=== PATIENT | female | born 1955 | race Caucasian/White ===

== ENCOUNTER 2017-06-07 05:50 | Day surgery (SDC) | payer OTHER ==
[2017-06-07] MEDS ORDERED: Xopenex 1.25 MG/0.5 ML UD NEBULE IH ONE (06:46)
[2017-06-07] MEDS ORDERED: Lactated Ringers 1,000 ML IV ONE (07:02)
[2017-06-07] MEDS ORDERED: Lactated Ringers 1,000 ML IV SCH (07:30)
[2017-06-07] MEDS ORDERED: TRANDATE 100 MG/20 ML MDV FOR DRIP IV ONE (07:30)
[2017-06-07] MEDS ORDERED: Versed 2 MG/2 ML Injection IV ONE (08:00)
[2017-06-07] MEDS ORDERED: DIPRIVAN 200 MG/20 ML IV ONE (08:00)
--- NOTE | 2017-06-07 09:06 | OP ---
SURGERY DATE/TIME: 06/07/2017 0725 PREOPERATIVE DIAGNOSIS: Constipation. POSTOPERATIVE DIAGNOSIS: Small polyp in the transverse colon and sigmoid diverticulosis. PROCEDURE: Colonoscopy with polypectomy. SURGEON: Dr. Hernandez. ANESTHESIA: Medications given by anesthesia department. HISTORY: The patient is a 62 year-old white female presenting now for colonoscopy. She has never had a screening colonoscopy performed previously. The patient reports she is having constipation. The stool softeners have not been helping. The patient was felt the need to have endoscopic evaluation. She was appraised of the risks of the procedure including the risk of perforation, phlebitis, untoward reaction to medication, bleeding and missed lesions. The patient verbalized her understanding and desired to have the procedure performed. DESCRIPTION OF PROCEDURE: The patient was given the medications by the anesthesia department. She had continuous pulse oximetry, ECG monitoring, intermittent blood pressure monitoring and tidal CO2 monitoring during the examination. She was placed in the left lateral decubitus position. A digital rectal examination was performed and revealed normal anal sphincter tone and no masses. The flexible Olympus pediatric colonoscope was used to intubate the rectum. A view of the colon was developed sequentially to the cecum. There was noted to be a fair amount of fecal material in the cecum precluding complete evaluation there. There was noted to be a polyp in the transverse colon and hepatic flexure and this was destroyed using cold biopsy technique with multiple passed of polyp forceps. There was also noted to be scattered diverticula in the sigmoid colon. No other mucosal lesions being encountered the scope was removed from the patient who tolerated the procedure well and was sent back to OP recovery in good condition. The prep was noted to be fair to good.
[2017-06-07 09:23] VITALS: PULSE 70
[2017-06-07 09:24] VITALS: BP 180/94; O2SAT 97
== END 2017-06-07 09:15 | disposition home or self-care (01) ==
LOC: SDC 05:50
PROVIDERS: ATTEND Family Medicine
PROC: 0DBN8ZX Excision of Sigmoid Colon, Via Natural or Artificial Opening Endoscopic, Diagnostic (ICD-10-PCS; principal; 2017-06-07)
DX: D12.3 Benign neoplasm of transverse colon (principal); K57.30 Diverticulosis of large intestine without perforation or abscess without bleeding; I10 Essential (primary) hypertension
CPT/HCPCS: 00810; 36415; 88305; 94640; J2250; J2704; A9270-GY

== ENCOUNTER 2018-08-11 08:33 | Day surgery (SDC) | payer MEDICARE ==
--- NOTE | 2018-08-11 08:07 | HP ---
DATE OF SURGERY: 08/11/2018 HISTORY OF PRESENT ILLNESS: The patient is a 63 year-old upper esophagus feels like food and pills getting stuck in the upper esophagus in need for upper endoscopy. PAST MEDICAL HISTORY: Chronic obstructive pulmonary disease, hypertension, PAST SURGICAL HISTORY: Cholecystectomy, knee replacement in the past. MEDICATIONS: Ventolin inhaler, chlorthalidone, fluoxetine, amlodipine, lisinopril, gabapentin, tramadol, clonidine, albuterol sulfate. ALLERGIES: NKDA. FAMILY HISTORY: Lung cancer. SOCIAL HISTORY: Less than a pack a day smoker. Denies alcohol abuse. REVIEW OF SYSTEMS: Twelve systems reviewed per admission assessment. No chest pain or palpitations other systems negative or noncontributory as above and per preadmission questionnaire. PHYSICAL EXAMINATION: GENERAL: No acute distress. HEENT: Sclerae nonicteric. NECK: No JVD. CHEST: Equal excursion, nonlabored breathing. CVS: Regular rate and rhythm. ABDOMEN: Soft. No peritoneal signs. EXTREMITIES: No significant edema. NEURO: Alert, oriented, moving extremities symmetrically. No gross motor deficits noted. IMPRESSION: Dysphagia with pills getting stuck upper esophagus. I feel the patient is in need of possible biopsy possible dilatation. Risks and benefits explained in detail including but not limited to bleeding or infection, risk of bowel injury or perforation possibly requiring open procedure, risk of missed or nondiagnosis or incomplete exam possibly requiring barium swallow, other studies or procedures, general risk of anesthesia or sedation but not limited to. Possibility if dilatation improves her swallowing she may need repeat again down the road. She also understands possibility it could be more of a functional neurologic problem and dilatation may not improve her swallowing she may need further work up and/or testing, esophagogram, other studies or procedures. She understands and agrees to the planned procedure and will proceed with EGD with possible biopsy, possible dilatation as an outpatient.
[~2018-08-11 08:33] MED LIST: Lactated Ringers 1,000 ML IV ONE; Lactated Ringers 1,000 ML IV SCH
== END 2018-08-11 09:00 ==
LOC: SDC 08:33
PROVIDERS: ATTEND Surgery
DX: R13.10 Dysphagia, unspecified (principal); Z53.09 Procedure and treatment not carried out because of other contraindication; J44.9 Chronic obstructive pulmonary disease, unspecified; I10 Essential (primary) hypertension; Z79.899 Other long term (current) drug therapy; Z80.1 Family history of malignant neoplasm of trachea, bronchus and lung; Z72.0 Tobacco use
CPT/HCPCS: 93005; 94250

== ENCOUNTER 2018-08-11 09:11 | Emergency (ER) | payer MEDICARE ==
--- NOTE | 2018-08-11 09:35 | ERPHSYRPT ---
- History of Present Illness Time Seen by Provider: 08/11/18 09:32 Historian: patient Exam Limitations: no limitations Physician History: The patient is a 63-year-old female brought over from outpatient surgery where she complained of chest pressure before having an EGD this morning. The chest pressure began at 5 this morning when she woke up, 4 hours ago. She has no history of heart problems. She tells me very clearly that she has this same chest pressure all most every morning. The chest pressure goes away when she has her coffee. She was not able to have anything to eat or drink since midnight before this procedure was to be done. She tells me she wants black coffee right now and she will feel better. She denies any more shortness of breath than she normally has with her COPD. She denies nausea. She denies sweating. She has a past medical history of COPD, hypertension, and stomach issues. She continues to smoke cigarettes. Timing/Duration: today, hour(s) (4) Activities at Onset: none Quality: pressure Location: substernal Chest Pain Radiation: no radiation Severity of Pain-Max: mild Severity of Pain-Current: mild Modifying Factors: Improves With: eating (drinking coffee) Associated Symptoms: denies symptoms Prior Chest Pain/Cardiac Workup: no prior cardiac workup, non-cardiac Nitro Today/Relief: no nitro taken today Aspirin Treatment Today: no aspirin today Allergies/Adverse Reactions: No Known Drug Allergies Allergy (Verified 08/11/18 09:36) Home Medications: Tramadol HCl 50 mg [Ultram 50 mg] 1 - 2 tab PO Q6HPRN PRN 01/13/14 [ History] Albuterol 8 gm Mdi Hfa [Ventolin Hfa MDI] 2 puffs IH Q4H PRN PRN 08/02/15 [History] Fluoxetine HCl 20 mg PO DAILY 06/04/17 [History] Gabapentin [Neurontin] 300 mg PO TID 06/04/17 [History] Clonidine HCl [Catapres] 0.2 mg PO TID 07/28/18 [History] Hx Tetanus, Diphtheria Vaccination/Date Given: Yes Hx Influenza Vaccination/Date Given: Yes Hx Pneumococcal Vaccination/Date Given: No - Review of Systems Constitutional: No Fever, No Chills Eyes: No Symptoms Ears, Nose, & Throat: No Symptoms Respiratory: No Cough, No Dyspnea Cardiac: Chest Pain Abdominal/Gastrointestinal: No Abdominal Pain, No Nausea, No Vomiting, No Diarrhea Genitourinary Symptoms: No Dysuria Musculoskeletal: No Back Pain, No Neck Pain Skin: No Rash Neurological: No Dizziness, No Focal Weakness, No Sensory Changes Psychological: No Symptoms Endocrine: No Symptoms Hematologic/Lymphatic: No Symptoms Immunological/Allergic: No Symptoms All Other Systems: Reviewed and Negative - Past Medical History Pertinent Past Medical History: Yes Neurological History: Migraines ENT History: No Pertinent History Cardiac History: Hypertension Respiratory History: COPD, Other Endocrine Medical History: No Pertinent History Musculoskeletal History: Arthritis GI Medical History: No Pertinent History, Gallbladder Disease History: No Pertinent History Psycho-Social History: No Pertinent History Female Reproductive Disorders: No Pertinent History - Past Surgical History Past Surgical History: Yes Neuro Surgical History: No Pertinent History Cardiac: No Pertinent History Respiratory: No Pertinent History Gastrointestinal: Cholecystectomy Genitourinary: No Pertinent History Musculoskeletal: Orthopedic Surgery Female Surgical History: Hysterectomy Other Surgical History: right knee replacement, screw in pelvis, misha in left leg - Social History Smoking Status: Current every day smoker How long have you smoked: 45 Exposure to second hand smoke: Yes Drug Use: none Patient Lives Alone: No - Nursing Vital Signs Nursing Vital Signs: Initial Vital Signs Temperature 98.5 F 08/11/18 09:14 Pulse Rate 100 H 08/11/18 09:14 Respiratory Rate 26 H 08/11/18 09:14 Blood Pressure 145/107 08/11/18 09:14 O2 Sat by Pulse Oximetry 92 L 08/11/18 09:14 Pain Scale Pain Intensity 0 - Physical Exam General Appearance: no apparent distress, alert Eye Exam: PERRL/EOMI, eyes nml inspection Ears, Nose, Throat Exam: normal ENT inspection, moist mucous membranes Neck Exam: normal inspection, non-tender, supple, full range of motion Respiratory Exam: diminished breath sounds, prolonged expirations, wheezing Cardiovascular Exam: regular rate/rhythm, normal heart sounds Gastrointestinal/Abdomen Exam: soft, No tenderness, No mass Pelvic Exam: not done Rectal Exam: not done Back Exam: normal inspection, No CVA tenderness, No vertebral tenderness Extremity Exam: normal inspection, normal range of motion Neurologic Exam: alert, oriented x 3, cooperative, normal mood/affect, sensation nml, No motor deficits Skin Exam: normal color, warm, dry SpO2 Interpretation: normal Oxygen Delivery: Room Air - Course EKG Interpreted by Me: RATE, Sinus Rhythm, Left [place] Deviation, LAFB, NORMAL INTERVALS, NORMAL QRS, NORMAL ST-T - Radiology Exams Chest X-ray Interpretation: Reviewed by me, Teleradiologist Report (per Dr Lloyd), Negative (stable nonacute chest with chronic features) Ordered Tests: Active Orders 24 hr Category Date Time Status Business Affairs Manager STAT Care 08/11/18 09:36 Active EKG-ER Only STAT Care 08/11/18 09:35 Active IV Insertion STAT Care 08/11/18 09:35 Active CHEST 2 VIEWS (PA AND LAT) Stat Exams 08/11/18 09:36 Completed CBC W DIFF Stat Lab 08/11/18 09:49 Completed CK-Creatinine Phosphokinase Stat Lab 08/11/18 09:49 Completed CMP Stat Lab 08/11/18 09:49 Completed Manual Differential NC Stat Lab 08/11/18 09:49 Completed Sputum Culture [CULTURE,SPUTUM] Stat Lab 08/11/18 10:06 Ordered TROPONIN Q3H Lab 08/11/18 09:49 Completed TROPONIN Q3H Lab 08/11/18 13:00 Completed TROPONIN Q3H Lab 08/11/18 15:45 Ordered TROPONIN Q3H Lab 08/11/18 18:45 Ordered TROPONIN Q3H Lab 08/11/18 21:45 Ordered Peak Expiratory Flow Rate ONCE RT 08/11/18 09:59 Active Respiratory Nebulizer STAT RT 08/11/18 09:37 Completed Respiratory Therapy Assessment DAILY RT 08/11/18 09:59 Active Medication Summary Discontinued Medications Generic Name Dose Route Start Last Admin Trade Name Freq PRN Reason Stop Dose Admin Albuterol/Ipratropium 3 ml 08/11/18 09:37 08/11/18 09:55 Duoneb 0.5-3 Mg/3 Ml Neb IH 08/11/18 09:38 3 ml STAT ONE Administration Albuterol/Ipratropium Confirm 08/11/18 09:53 Duoneb 0.5-3 Mg/3 Ml Neb Administered 08/11/18 09:54 Dose 3 ml IH .STK-MED ONE Lab/Rad Data: Laboratory Result Diagrams 08/11/18 09:49 08/11/18 09:49 Laboratory Results 08/11/18 08/11/18 08/11/18 Range/Units 13:00 09:49 09:49 WBC (4.0-10.5) K/mm3 RBC (4.1-5.4) M/mm3 Hgb (12.0-16.0) gm/dl Hct (35-47) % MCV (78-100) fl MCH (26-32) pg MCHC (32-36) g/dl RDW (11.5-14.0) % Plt Count (150-450) K/mm3 MPV (6-9.5) fl Segmented Neutrophils (36.0-66.0) % Band Neutrophils (0.0-2.0) % Lymphocytes (Manual) (24-44) % Monocytes (Manual) (0.0-12.0) % Eosinophils (Manual) (0.00-3.0) % Platelet Estimate (NORMAL) RBC Morphology Sodium 138 (137-145) mmol/L Potassium 4.3 (3.5-5.1) mmol/L Chloride 100 (98-107) mmol/L Carbon Dioxide 26 (22-30) mmol/L Anion Gap 16.4 H (5-15) MEQ/L BUN 8 (7-17) mg/dL Creatinine 0.95 (0.52-1.04) mg/dL Estimated GFR > 60.0 ML/MIN Glucose 116 H (74-106) mg/dL Calcium 9.6 (8.4-10.2) mg/dL Total Bilirubin 0.90 (0.2-1.3) mg/dL AST 22 (14-36) U/L ALT 14 (0-35) U/L Alkaline Phosphatase 123 (38-126) U/L Creatine Kinase 96 (30-135) U/L Troponin I < 0.012 < 0.012 (0.000-0.034) ng/mL Serum Total Protein 8.0 (6.3-8.2) g/dL Albumin 4.5 (3.5-5.0) g/dL 08/11/18 Range/Units 09:49 WBC 13.9 H (4.0-10.5) K/mm3 RBC 4.61 (4.1-5.4) M/mm3 Hgb 13.4 (12.0-16.0) gm/dl Hct 40.2 (35-47) % MCV 87.2 (78-100) fl MCH 29.1 (26-32) pg MCHC 33.3 (32-36) g/dl RDW 13.0 (11.5-14.0) % Plt Count 221 (150-450) K/mm3 MPV 9.9 H (6-9.5) fl Segmented Neutrophils 76 H (36.0-66.0) % Band Neutrophils 18 H (0.0-2.0) % Lymphocytes (Manual) 3 L (24-44) % Monocytes (Manual) 2 (0.0-12.0) % Eosinophils (Manual) 1 (0.00-3.0) % Platelet Estimate NORMAL (NORMAL) RBC Morphology NORMAL Sodium (137-145) mmol/L Potassium (3.5-5.1) mmol/L Chloride (98-107) mmol/L Carbon Dioxide (22-30) mmol/L Anion Gap (5-15) MEQ/L BUN (7-17) mg/dL Creatinine (0.52-1.04) mg/dL Estimated GFR ML/MIN Glucose (74-106) mg/dL Calcium (8.4-10.2) mg/dL Total Bilirubin (0.2-1.3) mg/dL AST (14-36) U/L ALT (0-35) U/L Alkaline Phosphatase (38-126) U/L Creatine Kinase (30-135) U/L Troponin I (0.000-0.034) ng/mL Serum Total Protein (6.3-8.2) g/dL Albumin (3.5-5.0) g/dL - Progress Progress: improved Progress Note: 08/11/18 13:46 Pt drank black coffee soon after entry into ER and immediately stated the chest pressure was relieved. Discussed with : Hesham Will see patient in: office Counseled pt/family regarding: lab results, diagnosis, need for follow-up, rad results - Departure Time of Disposition: 13:47 Departure Disposition: Home Clinical Impression: Chest tightness or pressure Condition: Stable Critical Care Time: No Referrals: FIORDALIZA GUSMAN [Primary Care Provider] - Additional Instructions: You had chest pressure that was relieved with black coffee. You were not having heart problems at this time. Once you are released from the ER, please go to [facility] and see Dr. Gusman. He is aware of what happened this morning and wants to have you evaluated by a refrigeration mechanic. He will help you schedule an appointment with the refrigeration mechanic.
[2018-08-11] MEDS ORDERED: DUONEB 0.5-3 MG/3 ml Neb IH ONE ×2 (09:37→09:53)
[2018-08-11 09:54] LABS: Hematocrit 40.2 % (35-47); Hemoglobin 13.4 gm/dl (12.0-16.0); Mean Cell Volume 87.2 fl (78-100); Mean Corpuscular Hemoglobin 29.1 pg (26-32); Mean Corpuscular Hgb Concent. 33.3 g/dl (32-36); Mean Platelet Volume 9.9 fl (6-9.5); Platelet Count 221 K/mm3 (150-450); Red Blood Count 4.61 M/mm3 (4.1-5.4); White Blood Count 13.9 K/mm3 (4.0-10.5)
--- NOTE | 2018-08-11 09:58 | XRAY ---
Indication: Chest pain. Comparison: August 02, 2015. PA/lateral chest remains clear again with a few incidental calcified granulomas. Heart and mediastinal structures within normal limits. Bony thorax intact again with mild osteopenia, degenerative changes, and scoliosis. Impression: Stable nonacute chest with chronic features.
[2018-08-11 10:12] LABS: ALBUMIN 4.5 g/dL (3.5-5.0); ALKALINE PHOSPHATASE 123 U/L (38-126); ANION GAP 16.4 MEQ/L (5-15); BLOOD UREA NITROGEN 8 mg/dL (7-17); CHLORIDE 100 mmol/L (98-107); CK-Creatinine Phosphokinase 96 U/L (30-135); Calcium 9.6 mg/dL (8.4-10.2); Carbon Dioxide 26 mmol/L (22-30); Creatinine 1 0.95 mg/dL (0.52-1.04); Glucose 116 mg/dL (74-106); Potassium 4.3 mmol/L (3.5-5.1); SGOT/AST 22 U/L (14-36); SGPT/ALT 14 U/L (0-35); SODIUM 138 mmol/L (137-145)
[2018-08-11 10:28] LABS: BAND 18 % (0.0-2.0); Eosinophil 1 % (0.00-3.0); Lymphocytes 3 % (24-44); Monocyte 2 % (0.0-12.0); Neutrophils 76 % (36.0-66.0); Platelet Estimate NORMAL (NORMAL); Total Cells Counted 100
[2018-08-11 14:05] VITALS: BP 129/77; PULSE 83; O2SAT 97
== END 2018-08-11 14:05 | disposition home or self-care (01) ==
LOC: ED 09:11
DX: R07.89 Other chest pain (principal); I10 Essential (primary) hypertension; J44.9 Chronic obstructive pulmonary disease, unspecified; M19.90 Unspecified osteoarthritis, unspecified site; Z72.0 Tobacco use; Z79.899 Other long term (current) drug therapy
CPT/HCPCS: 36000; 36415; 71046; 80053; 82550; 84484; 85025; 87070; 93005; 93041; 94150; 94640; 99284; A9270-GY

== ENCOUNTER 2018-10-20 09:29 | Day surgery (SDC) | payer MEDICARE ==
--- NOTE | 2018-10-20 08:03 | HP ---
DATE OF SURGERY: 10/20/2018 HISTORY OF PRESENT ILLNESS: The patient is a 53 year-old having problems with upper esophagus, feels like food and pills get stuck in the upper esophagus. No prior upper endoscopy. Family history negative for esophageal cancer and/or dysphagia. She is in need of upper endoscopy possible biopsy, possible dilatation. PAST MEDICAL HISTORY: She has had some chronic obstructive pulmonary disease, some anxiety and hypertension. PAST SURGICAL HISTORY: Cholecystectomy. Knee replacement. MEDICATIONS: Ventolin inhaler, chlorthalidone, fluoxetine, amlodipine, lisinopril, gabapentin, tramadol, Albuterol sulfate, clonidine. ALLERGIES: NKDA. FAMILY HISTORY: Lung cancer. Negative for esophageal cancer. SOCIAL HISTORY: Less than a pack per day smoker. Denies alcohol abuse. REVIEW OF SYSTEMS: Twelve systems reviewed. Negative or noncontributory as above and per preadmission questionnaire. She did get cardiac clearance. No chest pain or palpitations currently. PHYSICAL EXAMINATION: GENERAL: No acute distress. HEENT: Sclerae nonicteric. NECK: No JVD. CHEST: Equal excursion, nonlabored breathing. CVS: Regular rate and rhythm. ABDOMEN: Soft. No peritoneal signs. EXTREMITIES: No significant edema. NEURO: Alert, moving extremities symmetrically. No gross motor deficits noted. IMPRESSION: Dysphagia. I feel she will benefit from EGD possible biopsy, possible dilatation. She was shown the risk sheet and explained the procedure in detail but not limited to bleeding or infection, small risk of bowel injury or perforation possibly requiring open procedure, ongoing morbidity as tertiary center for stent, general risk of anesthesia, deep venous thrombosis, pulmonary embolism, pneumonia, perioperative risk of aches, pains, possibility if dilatation improves her swallowing she may need it repeated again in the future. She also understands possibility that dilatation may not improve swallowing. She may have a functional or neurologic issue that might require other work up or treatment. General risk of anesthesia or sedation but not limited to. She understands and agrees to the planned procedure and will proceed with EGD possible biopsy, possible dilatation as an outpatient.
[2018-10-20] MEDS ORDERED: DIPRIVAN 200 MG/20 ML IV ONE (09:30)
[2018-10-20] MEDS ORDERED: Ketamine HCl 50 MG/ML IJ ONE (09:30)
[2018-10-20] MEDS ORDERED: Lactated Ringers 1,000 ML IV SCH (10:00)
[2018-10-20] MEDS ORDERED: Xopenex 1.25 MG/0.5 ML UD NEBULE IH ONE ×2 (10:03→10:04)
[2018-10-20] MEDS ORDERED: Sodium Chloride 3 ML UD NEBULES IH ONE (10:06)
[2018-10-20 12:52] VITALS: O2SAT 99
[2018-10-20 12:56] VITALS: BP 170/91; PULSE 74
--- NOTE | 2018-10-21 08:41 | OP ---
SURGERY DATE/TIME: 10/20/2018 1056 PREOPERATIVE DIAGNOSIS: Dysphagia. POSTOPERATIVE DIAGNOSES: 1) Proximal esophageal narrowing and spasm. 2) Minimal gastritis. 3) Slight hiatal hernia 1 centimeter. PROCEDURES: 1) EGD with cold biopsy of the antrum to evaluate for Helicobacter pylori. 2) Cold biopsy distal esophagus to evaluate for eosinophilic esophagitis. 3) Proximal esophageal balloon dilatation, proximal esophageal narrowing (size 20 balloon). SURGEON: Dr. Triston Peterson. ANESTHESIA: MAC. ESTIMATED BLOOD LOSS: Minimal. INDICATIONS: As noted above. Risks and benefits explained in detail and not limited to and consent obtained. DESCRIPTION OF PROCEDURE AND FINDINGS: The patient is taken to the operating room. MAC anesthesia introduced. After official time out and no disagreement with planned procedure, a bite block positioned. Video gastroscope easily passed down the oropharynx. There is proximal esophageal narrowing and spasm. No evidence of any obvious masses to biopsy. Scope was passed down through the gastroesophageal junction about 39 cm through the patent pylorus to the junction of the second and third portion of the duodenum. Duodenum and duodenal bulb grossly unremarkable. Back in the stomach had some minimal gastritis. Cold biopsy taken to evaluate Helicobacter pylori. On retroflex there was just a very slight hiatal hernia with slight weakness measuring one centimeter or so by scope to gastroesophageal junction. There were no signs of any other polyps or masses. No signs of ulcers or any other mucosal lesion. The scope was straightened. Gastroesophageal junction noted about 39 cm. Z-line was fairly crisp. Given her symptom complaints and dysphagia, cold biopsy taken of distal esophagus to evaluate for eosinophilic esophagitis. Good hemostasis was noted. Otherwise there were no signs of any other mucosal lesions just the proximal esophageal narrowing and spasm where she was having symptoms. It was felt this warranted a trial of balloon dilatation. The scope is passed back down into the stomach. The balloon catheter was inserted. However she had some desaturation given her chronic obstructive pulmonary disease as she is a smoker. The balloon dilator and scope were withdrawn allowing anesthesia to better oxygenate the patient for a few minutes with excellent return of her saturations. Anesthesia gave approval to go ahead and proceed with the procedure. Passed the scope back down. The catheter was then readvanced in the stomach and then pulled back to proximal esophageal narrowing where it was gradually inflated and 30 seconds the first stage, 30 seconds second stage and final stage for about 2 minutes. The balloon was decompressed and then withdrawn and passed off. The scope more easily passed through this area down in the stomach and was gradually withdrawn. The biopsy site distal esophagus had good hemostasis. The area in the more proximal esophagus was more widely patent. There is no evidence of any full thickness issues or injury secondary to dilatation. The scope is withdrawn. Patient tolerated the procedure well. I will see if there is any family available to discuss the findings with. Otherwise we will see her back in the office in a week or two.
== END 2018-10-20 12:40 | disposition home or self-care (01) ==
LOC: SDC 09:29
PROVIDERS: ATTEND Surgery
DX: K22.2 Esophageal obstruction (principal); K44.9 Diaphragmatic hernia without obstruction or gangrene; K29.70 Gastritis, unspecified, without bleeding; K22.4 Dyskinesia of esophagus
CPT/HCPCS: 87081; 88305; 94150; 94250; 94640; C1726; J2704; A9270-GY

== ENCOUNTER 2018-12-06 10:55 | Emergency (ER) | payer MEDICARE ==
[2018-12-06] MEDS ORDERED: DUONEB 0.5-3 MG/3 ml Neb IH ONE ×2 (11:21→11:50)
[2018-12-06] MEDS ORDERED: TORAdol 30 mg Injection IM ONE (12:19)
[2018-12-06] MEDS ORDERED: TORAdol 30 mg Injection ONE (12:24)
--- NOTE | 2018-12-06 12:27 | ERPHSYRPT ---
- History of Present Illness Source: patient Exam Limitations: no limitations Patient Subjective Stated Complaint: states was reaching up for something and ankle twisted and she fell injuring right groin area. took her regular tramadol dose at home and has had no relief. Triage Nursing Assessment: to room per w/c. skin w/d, color pale, resp nonlabored. patient unable to bear weight on right leg. assisted to cot from w /c. pain to right groin area, patient guarding area. right leg normal color, good cap refill and good pedal pulse. no deformities noted. Physician History: Pt is a 63 y/o female that presented to the ER, s/p fall. Pt twisted her ankle , and knee, and when she fell, felt pain in her R groin area. Pt denies F/C/S. She is able to ambulate, and is able to flex her knee, and rotate her ankle. Method of Injury: fell Occurred: just prior to arrival Quality: sharpness Severity of Pain-Max: moderate Severity of Pain-Current: moderate Lower Extremities Pain: other: left (pain in the groin on the right.) Modifying Factors: Improves With: movement, pain medication Associated Symptoms: none Allergies/Adverse Reactions: No Known Drug Allergies Allergy (Verified 12/06/18 11:11) Home Medications: Tramadol HCl 50 mg [Ultram 50 mg] 1 - 2 tab PO Q6HPRN PRN 01/13/14 [ History] Albuterol 8 gm Mdi Hfa [Ventolin Hfa MDI] 2 puffs IH Q4H PRN PRN 08/02/15 [History] Fluoxetine HCl 20 mg PO DAILY 06/04/17 [History] Gabapentin [Neurontin] 300 mg PO TID 06/04/17 [History] Clonidine HCl [Catapres] 0.2 mg PO TID 07/28/18 [History] Atorvastatin Calcium [Lipitor] 40 mg PO DAILY 12/06/18 [History] Diltiazem HCl [Cartia Xt] 180 mg PO DAILY 12/06/18 [History] Lansoprazole 30 mg PO DAILY 12/06/18 [History] Trazodone HCl 50 mg [Desyrel 50 mg] 50 mg PO HS 12/06/18 [History] Hx Tetanus, Diphtheria Vaccination/Date Given: No Hx Influenza Vaccination/Date Given: Yes Hx Pneumococcal Vaccination/Date Given: Yes - Review of Systems Constitutional: No Fever, No Chills Eyes: No Symptoms Ears, Nose, & Throat: No Symptoms Respiratory: Cough, Wheezing, Other (H/O COPD. ) Cardiac: No Chest Pain, No Edema, No Syncope Abdominal/Gastrointestinal: No Abdominal Pain, No Nausea, No Vomiting, No Diarrhea Musculoskeletal: Arthralgias, Fall (R groin pain.), Injury, Joint Pain - Past Medical History Pertinent Past Medical History: Yes Neurological History: Migraines ENT History: No Pertinent History Cardiac History: High Cholesterol, Hypertension Respiratory History: Asthma, COPD, Emphysema, Other Endocrine Medical History: No Pertinent History Musculoskeletal History: Arthritis GI Medical History: No Pertinent History, Gallbladder Disease History: No Pertinent History Psycho-Social History: No Pertinent History Female Reproductive Disorders: No Pertinent History Other Medical History: 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 - Past Surgical History Past Surgical History: Yes Neuro Surgical History: No Pertinent History Cardiac: No Pertinent History Respiratory: No Pertinent History Gastrointestinal: Cholecystectomy Genitourinary: No Pertinent History Musculoskeletal: Orthopedic Surgery Female Surgical History: Hysterectomy Other Surgical History: right knee replacement, screw in pelvis, misha in left leg - Social History Smoking Status: Current every day smoker How long have you smoked: 45 Exposure to second hand smoke: No Drug Use: none Patient Lives Alone: Yes - Female History Hx Now: No - Nursing Vital Signs Nursing Vital Signs: Initial Vital Signs Temperature 97.4 F 12/06/18 11:06 Pulse Rate 76 12/06/18 11:06 Respiratory Rate 18 12/06/18 11:06 Blood Pressure 121/74 12/06/18 11:06 O2 Sat by Pulse Oximetry 99 12/06/18 11:06 Pain Scale Pain Intensity 10 - Physical Exam General Appearance: alert Cardiovascular/Respiratory Exam: regular rate/rhythm, heart sounds normal, no JVD, no M/R/G, wheezing Gastrointestinal/Abdominal Exam: non-tender, guarding Hips Exam: right: pain (Groin, with movement) Legs Exam: bilateral leg: non-tender, normal inspection, normal range of motion Knees Exam: bilateral knee: non-tender, normal inspection, normal range of motion Ankle Exam: bilateral ankle: non-tender, normal inspection, normal range of motion Foot Exam: bilateral foot: non-tender, normal inspection, normal range of motion Neuro/Tendon Exam: normal sensation, normal motor functions Mental Status Exam: alert, oriented x 3, cooperative Skin Exam: normal color SpO2 Interpretation: normal SpO2: 99 - Radiology Exams Right Hip X-ray Interpretation: Interpreted by me (No fracture) Ordered Tests: Active Orders 24 hr Category Date Time Status HIP UNI (2V) INCL PEL IF DONE Stat Exams 12/06/18 11:21 Taken Peak Expiratory Flow Rate ONCE RT 12/06/18 12:04 Completed Respiratory Therapy Assessment DAILY RT 12/06/18 12:03 Completed Medication Summary Discontinued Medications Generic Name Dose Route Start Last Admin Trade Name Freq PRN Reason Stop Dose Admin Albuterol/Ipratropium 3 ml 12/06/18 11:21 12/06/18 12:00 Duoneb 0.5-3 Mg/3 Ml Neb IH 12/06/18 11:22 3 ml STAT ONE Administration Albuterol/Ipratropium Confirm 12/06/18 11:50 Duoneb 0.5-3 Mg/3 Ml Neb Administered 12/06/18 11:51 Dose 3 ml IH .STK-MED ONE Ketorolac Tromethamine 30 mg 12/06/18 12:19 Toradol 30 Mg Injection IM 12/06/18 12:20 STAT ONE - Progress Progress: improved Progress Note: 12/06/18 12:29 Pt had XR of hip and R pelvis. No fracture was seen. As pt was wheezing, a Duo med treatement was ordered. Pt got Toradol IM for pain. Pt was consulted about opening the windows in her living place, while heating with carosene, to prevent hypoxia and injury. Will see patient in: office Counseled pt/family regarding: diagnosis, need for follow-up, rad results - Departure Time of Disposition: 12:32 Departure Disposition: Home Clinical Impression: Hip sprain Condition: Stable Critical Care Time: No Additional Instructions: Use NSAIDs OTC for pain. keep hip elevated, and iced at area of discomfort. F/ U with PCP.
[2018-12-06 12:57] VITALS: BP 140/87; PULSE 64; O2SAT 92
--- NOTE | 2018-12-06 19:14 | XRAY ---
Indication: Pain following fall. Comparison: October 03, 2017. AP pelvis and 2 views of the right hip again demonstrates mild osteopenia, mild right hip degenerative arthropathy, mild lower lumbar degenerative spondylosis, old proximal left femur fracture, left iliac orthopedic screws, and scattered vascular calcifications. No new/acute bony, articular, or soft tissue abnormalities.
== END 2018-12-06 13:30 | disposition home or self-care (01) ==
LOC: ED 10:55
DX: S73.101A Unspecified sprain of right hip, initial encounter (principal); R10.30 Lower abdominal pain, unspecified; X50.1XXA Overexertion from prolonged static or awkward postures, initial encounter; W01.0XXA Fall on same level from slipping, tripping and stumbling without subsequent striking against object, initial encounter; I10 Essential (primary) hypertension; J44.9 Chronic obstructive pulmonary disease, unspecified; M19.90 Unspecified osteoarthritis, unspecified site; K75.89 Other specified inflammatory liver diseases; Z79.899 Other long term (current) drug therapy
CPT/HCPCS: 73502; 94150; 94640; 96372; 99284; J1885; A9270-GY

== ENCOUNTER 2019-08-10 08:30 | Day surgery (SDC) | payer MEDICARE ==
--- NOTE | 2019-08-06 09:55 | HP ---
DATE OF SURGERY: 08/10/2019 HISTORY OF PRESENT ILLNESS: The patient is a 64 year-old with dysphagia upper esophagus. She had prior dilatation in the past. It is felt she had symptomatic dysphagia and is in need of upper endoscopy possibly biopsy or dilatation. PAST MEDICAL HISTORY: Chronic obstructive pulmonary disease, hypertension, history of polyps, arthritis in the past. PAST SURGICAL HISTORY: Cholecystectomy. Right knee replacement in the past. Endoscopy with dilatation in the past in 2018. MEDICATIONS: Transdermal nicotine patch, Albuterol, trazodone, prednisone, clonidine, gabapentin, metronidazole, chlorthalidone, amlodipine, omeprazole, tramadol, Zofran, lisinopril hydrochlorothiazide, fluoxetine, had been on some amoxicillin in the past. Cartia XT, Ventolin HFA, Trelegy Ellipta. ALLERGIES: NKDA. FAMILY HISTORY: Cancer. SOCIAL HISTORY: Half pack per day smoker, denies alcohol abuse. REVIEW OF SYSTEMS: Fourteen systems reviewed per as noted above. No chest pain or palpitations other systems negative or noncontributory as above and per preadmission questionnaire. PHYSICAL EXAMINATION: GENERAL: No acute distress. HEENT: Sclerae nonicteric. NECK: No JVD. CHEST: Equal excursion, nonlabored breathing. CVS: Regular rate and rhythm. ABDOMEN: Soft. EXTREMITIES: No significant edema. NEURO: Alert, oriented, moving extremities symmetrically. No gross motor deficits noted. IMPRESSION: Dysphagia upper esophagus. I feel the patient will benefit from EGD possible biopsy, possible dilatation. Shown the risk sheet and explained the procedure in detail but not limited to bleeding, infection. Risk of bowel injury or perforation possibly requiring open procedure, risk of missed or nondiagnosis or incomplete exam possibly requiring barium swallow, other studies or procedures. Possibility if dilatation improves her swallowing may need it repeated again down the road, possibility that dilatation may not improve her swallowing and maybe more of a functional/neurologic issue and may need continued medical management. She understands and agrees to the planned procedure and will proceed with EGD with possible biopsy, possible dilatation as an outpatient.
[2019-08-10] MEDS ORDERED: DUONEB 0.5-3 MG/3 ml Neb IH ONE (09:12)
[2019-08-10] MEDS ORDERED: APRESOLINE 20 MG/ML INJ IV ONE (09:13)
[2019-08-10] MEDS ORDERED: Xopenex 1.25 MG/0.5 ML UD NEBULE IH ONE ×2 (09:15→09:23)
[2019-08-10] MEDS ORDERED: Sodium Chloride 3 ML UD NEBULES IH ONE (09:16)
[2019-08-10] MEDS ORDERED: DIPRIVAN 200 MG/20 ML IV ONE (10:09)
[2019-08-10] MEDS ORDERED: Catapres 0.1 MG PO ONE (11:30)
[2019-08-10] MEDS ORDERED: Cardizem CD 180 MG PO ONE (11:30)
[2019-08-10] MEDS ORDERED: Zestril 20 MG PO ONE (11:30)
[2019-08-10 12:30] VITALS: PULSE 63; O2SAT 99
[2019-08-10 12:34] VITALS: BP 153/84
--- NOTE | 2019-08-11 08:01 | OP ---
SURGERY DATE/TIME: 08/10/2019 1008 PREOPERATIVE DIAGNOSIS: Dysphagia. POSTOPERATIVE DIAGNOSES: 1) Proximal esophageal narrowing and spasm. 2) Plus or minus short segment of distal gastroesophagitis, path pending. 3) Mild gastric erythema, cold biopsy taken to evaluate for Helicobacter pylori. PROCEDURES: 1) EGD with cold biopsy of the antrum to evaluate for Helicobacter pylori. 2) Cold biopsy distal esophagus at the gastroesophageal junction to evaluate short segment distal esophagitis versus normal variation of gastroesophageal junction. 3) Proximal esophageal balloon dilatation of symptomatic proximal esophageal narrowing (size 20 balloon dilator). SURGEON: Dr. Triston Peterson. ANESTHESIA: MAC. ESTIMATED BLOOD LOSS: Minimal. INDICATIONS: As noted above. Risks and benefits explained in detail and not limited to and consent obtained. DESCRIPTION OF PROCEDURE AND FINDINGS: The patient is taken to the operating room. MAC anesthesia introduced. After official time out and no disagreement with planned procedure, a bite block positioned. Video gastroscope easily passed down the oropharynx to the proximal esophagus where there was narrowing and spasm. There was no ubaldo mass to biopsy but given her symptom complaints here it was felt she warranted dilating this area during the procedure. The scope was able to be passed down through the patent pylorus to the junction of the second and third portion of the duodenum. Duodenum and duodenal bulb were grossly unremarkable. Back in the stomach she did have some mild gastric erythema. It was felt she warranted cold biopsies taken to evaluate for Helicobacter pylori. Good hemostasis noted. On retroflex there were no signs of any significant hiatal hernia. The scope is straightened. There had been no signs of any obvious masses or ulcers in the stomach. Scope pulled back into the esophagus. Gastroesophageal junction about 40 cm. There was a little bit of inflammation at the gastroesophageal junction area. Cold biopsy taken to evaluate for gastroesophagitis or normal variation of gastroesophageal junction. Good hemostasis noted. There were no signs of any obvious mass throughout the remainder of the esophagus. The scope was pulled back up to the narrowed area. It was felt this warranted evaluating as she is having symptoms in this area. Therefore the scope is passed back down the stomach. A 20 balloon catheter carefully inserted under direct vision of the camera, pulled back up to the proximal esophageal narrowed area where it was gradually inflated up over the first stage for 45 seconds, second stage for 45 seconds, final stage for 2 minutes size 20 balloon dilator. The balloon was then decompressed and the balloon catheter removed. The scope much more easily passed through this area down back into the stomach and gradually withdrawn. The biopsy sites had good hemostasis. Proximal esophageal narrowing area seemed to be more widely patent. There was no evidence of any full thickness issues or injury secondary to dilatation. The scope is withdrawn. Findings discussed with the family out in the waiting area.
== END 2019-08-10 12:46 | disposition home or self-care (01) ==
LOC: SDC 08:30
PROVIDERS: ATTEND Surgery
DX: K22.2 Esophageal obstruction (principal); K22.4 Dyskinesia of esophagus; K29.70 Gastritis, unspecified, without bleeding; K20.9 Esophagitis, unspecified; J44.9 Chronic obstructive pulmonary disease, unspecified; I10 Essential (primary) hypertension; Z79.899 Other long term (current) drug therapy
CPT/HCPCS: 94640; C1726; J0360; J2704; A9270-GY

== ENCOUNTER 2020-04-04 08:51 | Day surgery (SDC) | payer MEDICARE ==
--- NOTE | 2020-04-04 07:53 | HP ---
DATE OF SURGERY: 04/04/2020 HISTORY OF PRESENT ILLNESS: The patient presents for colonoscopy. She cannot remember when her last endoscopy colonoscopy was. She is in need of screening colonoscopy as her last has been some time ago. No bloody stools. She had some epigastric pain in the past better now. PAST MEDICAL HISTORY: Includes chronic obstructive pulmonary disease. She has some hypertension, hyperlipidemia. PAST SURGICAL HISTORY: Knee replacement in the past. Cholecystectomy in the past. Hysterectomy in the past. She had been set up for EGD in the past. Cyst removed in the past. MEDICATIONS: Includes carvedilol, diltiazem, Albuterol, Ventolin inhaler, atorvastatin, clonidine, Cartia XT, lisinopril, trazodone, tramadol and some aspirin. ALLERGIES: NKDA. FAMILY HISTORY: Cancer, diabetes, hypertension. Negative for colon cancer. SOCIAL HISTORY: Half pack per day smoker, denies alcohol abuse. REVIEW OF SYSTEMS: Fourteen systems reviewed pertinent for as noted above. No chest pain or palpitations. Other systems negative or noncontributory as above and per preadmission questionnaire. She has an eye procedure scheduled in the April. PHYSICAL EXAMINATION: GENERAL: No acute distress. HEENT: Sclerae nonicteric. NECK: No JVD. CHEST: Equal excursion, nonlabored breathing. CVS: Regular rate and rhythm. ABDOMEN: Soft. No peritoneal signs. EXTREMITIES: No significant edema. NEURO: Alert, oriented, moving extremities symmetrically. No gross motor deficits noted. RECTAL: Deferred timed to endoscopy exam. IMPRESSION: Obtained records of last colonoscopy. She is in need of screening colonoscopy. I feel she is a candidate. She was shown the risk sheet and explained the procedure in detail but not limited to bleeding or infection, risk of bowel injury or perforation, risk of missed or nondiagnosis or incomplete exam possibly requiring barium enema, other studies or procedures, general risk of anesthesia or sedation, risk of bowel prep but not limited to. She understands and agrees to the planned procedure, will proceed with outpatient screening colonoscopy.
[2020-04-04] MEDS ORDERED: Ketamine HCl 50 MG/ML IV ONE (08:52)
[2020-04-04] MEDS ORDERED: DIPRIVAN 200 MG/20 ML IV ONE (08:52)
[2020-04-04] MEDS ORDERED: Xylocaine-Mpf 2% 5 Ml Vial IJ ONE (08:52)
[2020-04-04] MEDS ORDERED: Lactated Ringers 1,000 ML IV ONE ×2 (09:25→12:04)
[2020-04-04] MEDS ORDERED: Lactated Ringers 1,000 ML IV SCH (09:30)
[2020-04-04] MEDS ORDERED: DUONEB 0.5-3 MG/3 ml Neb IH ONE ×2 (09:43→09:50)
[2020-04-04 12:24] VITALS: PULSE 56; O2SAT 95
[2020-04-04 12:27] VITALS: BP 138/69
--- NOTE | 2020-04-05 10:01 | OP ---
SURGERY DATE/TIME: 04/04/2020 1040 PREOPERATIVE DIAGNOSIS: Need for screening colonoscopy, last colonoscopy unclear how long ago. POSTOPERATIVE DIAGNOSES: 1) Small polyps ascending colon. 2) Diverticulosis. 3) Small raised lesion versus early polyps or hyperplastic lesion rectosigmoid colon. 4) Fair bowel prep. 5) Small internal hemorrhoids. 6) Withdrawal time 9 minutes. 7) ASA Class III. 8) Photo documentation of appendiceal orifice and valve area. 9) Palpation of the right lower quadrant to confirm location. PROCEDURES: 1) Colonoscopy to cecum. 2) Hot biopsy polypectomy two small polyps ascending colon removed with hot biopsy forceps. 3) Cold biopsy removal of two small raised lesions versus hyperplastic lesion versus early polyps in the rectosigmoid colon, path pending. SURGEON: Dr. Triston Peterson. ANESTHESIA: MAC. PREP QUALITY: Overall fair. ESTIMATED BLOOD LOSS: Minimal. INDICATIONS: As noted above. Risks and benefits explained in detail but not limited to and consent obtained. DESCRIPTION OF PROCEDURE AND FINDINGS: The patient is taken to the operating room. MAC anesthesia introduced. After official time out and no disagreement with planned procedure, digital rectal exam did not reveal any digital palpable rectal masses. She did have some internal hemorrhoids. Video colonoscope inserted and passed up the tortuous sigmoid, descending, transverse and ascending colon around to the cecum, appendiceal orifice was well identified confirming location and palpation of the right lower quadrant confirming location. Photo documentation was accomplished. Prep overall was fair. There were several areas of liquidy semi-solid stool suction irrigated as clear as possible just slightly limiting exam for small lesions. Otherwise overall fair prep. The scope is slowly and carefully withdrawn. Two small polyps in the distal ascending colon removed with hot biopsy forceps with brief bursts of cautery. Good hemostasis noted. Otherwise the scope was carefully withdrawn. She did have some scattered diverticula throughout the colon a little bit more prominent left colon. There were no signs of any large polyps, masses or obstructing lesions. The scope pulled back to the rectosigmoid colon where two small 1.5 mm raised lesions versus hyperplastic lesions versus early polyps removed with cold biopsy forceps. Good hemostasis noted. Otherwise she had some small internal hemorrhoids. There were no signs of any large polyps, masses or obstructing lesions. The scope is withdrawn. The patient tolerated the procedure well. There were no immediate complications. No family to discuss the findings with out in the waiting area.
== END 2020-04-04 12:10 | disposition home or self-care (01) ==
LOC: SDC 08:51
PROVIDERS: ATTEND Surgery
DX: Z12.11 Encounter for screening for malignant neoplasm of colon (principal); D12.2 Benign neoplasm of ascending colon; K57.30 Diverticulosis of large intestine without perforation or abscess without bleeding; K64.8 Other hemorrhoids; J44.9 Chronic obstructive pulmonary disease, unspecified; E78.5 Hyperlipidemia, unspecified; I10 Essential (primary) hypertension; Z79.899 Other long term (current) drug therapy
CPT/HCPCS: 88305; 94150; 94640; J2704; A9270-GY

== ENCOUNTER 2020-11-12 06:38 | Inpatient (IN) | payer MEDICARE ==
[2020-11-12 06:55] LABS: A-aADO2 124; ABG HEMOGLOBIN 12.9; ABG POTASSIUM 4.5 (3.5-5.1); ABG SITE RIGHT BRACHIAL; ARTERIAL BLD GAS O2 SATURATION 98.2 % (95-100); ARTERIAL BLOOD GAS BASE EXCESS -2.1 (-2.0-2.0); ARTERIAL BLOOD GAS FIO2 44 %; ARTERIAL BLOOD GAS PCO2 56 mmHg (35-45); ARTERIAL BLOOD GAS PO2 120 mmHg (75-100); ARTERIAL BLOOD GAS pH 7.27 (7.35-7.45); CARBOXYHEMOGLOBIN 2.2 % THgb (0.0-6.9); HCO3- 25.7 (22-28); HGB O2 SAT 95.2 g/dF (94-100); Methhemoglobin 0.9 % (1.4-1.5); paO2 pAO1 0.49
[2020-11-12] MEDS ORDERED: PROVENTIL Solution 2.5 MG/0.5 ML IH ONE (06:57)
[2020-11-12] MEDS ORDERED: PROVENTIL Solution 2.5 MG/0.5 ML IH SCH (07:15)
--- NOTE | 2020-11-12 07:20 | ERPHSYRPT ---
- History of Present Illness Time Seen by Provider: 11/12/20 07:05 Source: patient, EMS Exam Limitations: clinical condition Patient Subjective Stated Complaint: SOB Triage Nursing Assessment: Patient brought into ER via EMS and transferred to bed with assist of 2. Patient A+O X3. Patient unable to speak in full sentence due to SOB. EMS had patient on 4 liters of O2 per N/C with Sat 89%. O2 increased to 6 liters per N/C at this time. Patient states she's been feeling SOB this past whole week and saw Dr. Butler on Saturday and was prescibed an antibotic (Unknown name) for a lung infection. Lungs noted to be diminished in the bases with rhochi, rales and wheezing noted throughout. Patient denies pain or discomfort. Patient wears home O2 continous at 2 liters. Patient has productive, moist cough noted. Physician History: This is a 65-year-old white female who lives in the garage of home and has a history of COPD on 2 L of oxygen via nasal cannula. She also has a history of asthma. In the last week patient has had worsening shortness of breath and cough. She saw Dr. Whaley this past Saturday and was given an antibiotic for treatment of a lung infection (name unknown). Patient's states that she has not had fevers. She denies chest pain. She denies abdominal pain. She is had no nausea vomiting, no arthralgias or myalgias. Patient's shortness of breath was worse this morning and patient was brought into the emergency room via ambulance. Patient received nebulizer treatment as well as Solu-Medrol intravenously. Patient has not taken her medications this morning. Patient does have a history of hypertension. She does have difficulty speaking full sentences. Patient continues to smoke cigarettes Timing/Duration: week(s) (1), worse Severity of Dyspnea-Max: moderate Severity of Dyspnea-Current: moderate Possible Cause: occasional episodes Modifying Factors: Improves With: albuterol nebulizer, coughing, oxygen Associated Symptoms: anxiety, cough, No chest pain/discomfort, No fever Allergies/Adverse Reactions: No Known Drug Allergies Allergy (Verified 11/12/20 06:44) Home Medications: Tramadol HCl 50 mg [Ultram 50 mg] 1 - 2 tab PO Q6HPRN PRN 01/13/14 [History] Albuterol 8 gm Mdi Hfa [Ventolin Hfa MDI] 2 puffs IH Q4H PRN PRN 08/02/15 [History] Clonidine HCl [Catapres] 0.3 mg PO TID 07/28/18 [History] Atorvastatin Calcium [Lipitor] 40 mg PO DAILY 12/06/18 [History] Diltiazem HCl [Cartia Xt] 180 mg PO DAILY 12/06/18 [History] Trazodone HCl 50 mg [Desyrel 50 mg] 50 mg PO HS 12/06/18 [History] Carvedilol 3.125 mg [Coreg 3.125 MG] 3.125 mg PO BID 03/25/20 [History] Fluticasone/Umeclidin/Vilanter [Trelegy Ellipta 100-62.5-25] 1 inh IH DAILY 04/04/20 [History] Hx Tetanus, Diphtheria Vaccination/Date Given: No Hx Influenza Vaccination/Date Given: Yes Hx Pneumococcal Vaccination/Date Given: Yes Immunizations Up to Date: Yes Travel Risk - International Travel Have you traveled outside of the country in past 3 weeks: No - Coronavirus Screening Are you exhibiting any of the following symptoms?: Yes Symptoms: Cough: New Onset, Shortness of Breath Close contact with a COVID-19 positive Pt in past 14-21 Days: No - Review of Systems Constitutional: No Symptoms Eyes: No Symptoms Ears, Nose, & Throat: No Symptoms Respiratory: Cough, Dyspnea Cardiac: No Symptoms Abdominal/Gastrointestinal: No Symptoms Genitourinary Symptoms: No Symptoms Musculoskeletal: No Symptoms Skin: No Symptoms Neurological: No Symptoms Psychological: No Symptoms Endocrine: No Symptoms - Past Medical History Pertinent Past Medical History: Yes Neurological History: Migraines ENT History: No Pertinent History Cardiac History: High Cholesterol, Hypertension Respiratory History: Asthma, COPD, Emphysema, Other Endocrine Medical History: No Pertinent History Musculoskeletal History: Arthritis GI Medical History: Gallbladder Disease History: No Pertinent History Psycho-Social History: Anxiety Female Reproductive Disorders: No Pertinent History Other Medical History: 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 - Past Surgical History Past Surgical History: Yes Neuro Surgical History: No Pertinent History Cardiac: No Pertinent History Respiratory: No Pertinent History Gastrointestinal: Cholecystectomy Genitourinary: No Pertinent History Musculoskeletal: Orthopedic Surgery Female Surgical History: Hysterectomy Other Surgical History: right knee replacement, screw in pelvis, misha in left leg - Social History Smoking Status: Current some day smoker How long have you smoked: 50 years Exposure to second hand smoke: Yes Drug Use: none Patient Lives Alone: Yes - Female History Hx Now: No - Nursing Vital Signs Nursing Vital Signs: Initial Vital Signs Temperature 97.7 F 11/12/20 06:44 Pulse Rate 123 H 11/12/20 06:44 Respiratory Rate 34 H 11/12/20 06:44 Blood Pressure 187/150 11/12/20 06:44 O2 Sat by Pulse Oximetry 98 11/12/20 06:44 Pain Scale Pain Intensity 0 - Physical Exam General Appearance: moderate distress, alert, anxiety Eye Exam: PERRL/EOMI, eyes nml inspection Ears, Nose, Throat Exam: hearing grossly normal, normal pharynx Neck Exam: normal inspection, non-tender, supple, full range of motion Respiratory Exam: respiratory distress, airway intact, diminished breath sounds, wheezing Cardiovascular/Chest Exam: tachycardia Abdominal/Gastrointestinal Exam: soft, normal bowel sounds, No tenderness Rectal Exam: not done Extremity Exam: non-tender, normal range of motion, normal inspection, normal capillary refill, no calf tenderness, no pedal edema, pelvis stable Neurologic Exam: alert, oriented x 3, 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 There are no changes present when compared to EKG dated 08/11/2018) Ordered Tests: Active Orders 24 hr Category Date Time Status EKG-ER Only STAT Care 11/12/20 07:22 Active IV Insertion STAT Care 11/12/20 07:22 Active Isolation, Initiate & Maintain STAT Care 11/12/20 07:22 Active Oxygen-ED Only Nasal Cannula 4 lpm Care 11/12/20 07:22 Active Pulse Oximetry (ED) STAT Care 11/12/20 07:22 Active CHEST 1 VIEW (PORTABLE) Stat Exams 11/12/20 07:23 Completed CHEST WITH CONTRAST [CT] Stat Exams 11/12/20 08:43 Taken ABG [ARTERIAL BLOOD GASES] Urgent Lab 11/12/20 06:53 Completed ARTERIAL BLOOD GASES Stat Lab 11/12/20 07:22 Ordered BLOOD CULTURE Stat Lab 11/12/20 07:35 Received CBC W DIFF Stat Lab 11/12/20 06:55 Completed CMP Stat Lab 11/12/20 06:55 Completed D-DIMER QUANTITATIVE Stat Lab 11/12/20 06:55 Completed Ferritin Stat Lab 11/12/20 06:55 Completed INFLUENZA A+B ALCIRA Stat Lab 11/12/20 07:23 Completed LDH-LACTATE DEHYDROGENASE Stat Lab 11/12/20 06:55 Completed Lactic Acid Stat Lab 11/12/20 07:22 Ordered Lactic Acid Urgent Lab 11/12/20 06:54 Completed Amador Screen Stat Lab 11/12/20 06:55 Completed NT PRO BNP Stat Lab 11/12/20 06:55 Completed TROPONIN Q3H Lab 11/12/20 06:55 Completed TROPONIN Q3H Lab 11/12/20 10:30 Ordered TROPONIN Q3H Lab 11/12/20 13:30 Ordered TROPONIN Q3H Lab 11/12/20 16:30 Ordered TROPONIN Q3H Lab 11/12/20 19:30 Ordered Respiratory Therapy Assessment DAILY RT 11/12/20 07:10 Completed Transfer Order Routine Transfer 11/12/20 Ordered Medication Summary Generic Name Dose Route Start Last Admin Trade Name Freq PRN Reason Stop Dose Admin Albuterol Sulfate 5 mg 11/12/20 07:15 11/12/20 07:10 Proventil Solution 2.5 Mg/0.5 Ml IH 12/12/20 07:14 5 mg UD CARLOS ENRIQUE Administration Sodium Chloride 1,000 mls @ 50 mls/hr 11/12/20 08:45 11/12/20 09:42 Sodium Chloride 0.9% 1000 Ml IV 12/12/20 08:44 50 mls/hr .Q20H CARLOS ENRIQUE Administration Discontinued Medications Generic Name Dose Route Start Last Admin Trade Name Freq PRN Reason Stop Dose Admin Albuterol Sulfate Confirm 11/12/20 06:57 Proventil Solution 2.5 Mg/0.5 Ml Administered 11/12/20 06:58 Dose 2.5 mg IH .STK-MED ONE Furosemide 40 mg 11/12/20 08:42 11/12/20 09:42 Lasix 40 Mg/4 Ml IV 11/12/20 08:43 40 mg STAT ONE Administration Furosemide Confirm 11/12/20 09:41 Lasix 40 Mg/4 Ml Administered 11/12/20 09:42 Dose 40 mg .ROUTE .STK-MED ONE Lab/Rad Data: Laboratory Result Diagrams 11/12/20 06:55 11/12/20 06:55 Laboratory Results 11/12/20 11/12/20 11/12/20 Range/Units 07:44 07:23 07:23 WBC (4.0-10.5) K/mm3 RBC (4.1-5.4) M/mm3 Hgb (12.0-16.0) gm/dl Hct (35-47) % MCV (78-100) fl MCH (26-32) pg MCHC (32-36) g/dl RDW (11.5-14.0) % Plt Count (150-450) K/mm3 MPV (7.5-11.0) fl Gran % (36.0-66.0) % Eos # (Auto) (0-0.5) Absolute Lymphs (auto) (1.0-4.6) Absolute Monos (auto) (0.0-1.3) Lymphocytes % (24.0-44.0) % Monocytes % (0.0-12.0) % Eosinophils % (0.00-5.0) % Basophils % (0.0-0.4) % Absolute Granulocytes (1.4-6.9) Basophils # (0-0.4) D-Dimer (215-500) ng/mL Puncture Site pCO2 (35-45) mmHg pO2 (75-100) mmHg Base Excess (-2.0-2.0) O2 Saturation (94-100) g/dF ABG pH (7.35-7.45) ABG HCO3 (22-28) ABG O2 Sat (Measured) (95-100) % Hiro Test A-a Gradient a/A Ratio Hemoglobin Carboxyhemoglobin (0.0-6.9) % THgb Methemoglobin (1.4-1.5) % Potassium (3.5-5.1) Temperature C POC O2 Flow Rate % Sodium (137-145) mmol/L Chloride (98-107) mmol/L Carbon Dioxide (22-30) mmol/L Anion Gap (5-15) MEQ/L BUN (7-17) mg/dL Creatinine (0.52-1.04) mg/dL Estimated GFR ML/MIN Glucose (74-106) mg/dL Lactic Acid (0.4-2.0) Calcium (8.4-10.2) mg/dL Ferritin (11.1-264) ng/mL Total Bilirubin (0.2-1.3) mg/dL AST (14-36) U/L ALT (0-35) U/L Alkaline Phosphatase (38-126) U/L Lactate Dehydrogenase (120-246) U/L Troponin I (0.000-0.034) ng/mL NT-Pro-B Natriuret Pep (0-900) pg/mL Serum Total Protein (6.3-8.2) g/dL Albumin (3.5-5.0) g/dL Monoscreen (Negative) Influenza Type A Ag NEGATIVE (NEGATIVE) Influenza Type B Ag NEGATIVE (NEGATIVE) SARS-CoV-2 (PCR) NEGATIVE (NEGATIVE) Group A Strep Antibody NOT DETECTED (NEGATIVE) 11/12/20 11/12/20 11/12/20 Range/Units 06:55 06:55 06:55 WBC (4.0-10.5) K/mm3 RBC (4.1-5.4) M/mm3 Hgb (12.0-16.0) gm/dl Hct (35-47) % MCV (78-100) fl MCH (26-32) pg MCHC (32-36) g/dl RDW (11.5-14.0) % Plt Count (150-450) K/mm3 MPV (7.5-11.0) fl Gran % (36.0-66.0) % Eos # (Auto) (0-0.5) Absolute Lymphs (auto) (1.0-4.6) Absolute Monos (auto) (0.0-1.3) Lymphocytes % (24.0-44.0) % Monocytes % (0.0-12.0) % Eosinophils % (0.00-5.0) % Basophils % (0.0-0.4) % Absolute Granulocytes (1.4-6.9) Basophils # (0-0.4) D-Dimer (215-500) ng/mL Puncture Site pCO2 (35-45) mmHg pO2 (75-100) mmHg Base Excess (-2.0-2.0) O2 Saturation (94-100) g/dF ABG pH (7.35-7.45) ABG HCO3 (22-28) ABG O2 Sat (Measured) (95-100) % Hiro Test A-a Gradient a/A Ratio Hemoglobin Carboxyhemoglobin (0.0-6.9) % THgb Methemoglobin (1.4-1.5) % Potassium (3.5-5.1) Temperature C POC O2 Flow Rate % Sodium (137-145) mmol/L Chloride (98-107) mmol/L Carbon Dioxide (22-30) mmol/L Anion Gap (5-15) MEQ/L BUN (7-17) mg/dL Creatinine (0.52-1.04) mg/dL Estimated GFR ML/MIN Glucose (74-106) mg/dL Lactic Acid (0.4-2.0) Calcium (8.4-10.2) mg/dL Ferritin 18.5 (11.1-264) ng/mL Total Bilirubin (0.2-1.3) mg/dL AST (14-36) U/L ALT (0-35) U/L Alkaline Phosphatase (38-126) U/L Lactate Dehydrogenase (120-246) U/L Troponin I 0.031 (0.000-0.034) ng/mL NT-Pro-B Natriuret Pep (0-900) pg/mL Serum Total Protein (6.3-8.2) g/dL Albumin (3.5-5.0) g/dL Monoscreen NEGATIVE (Negative) Influenza Type A Ag (NEGATIVE) Influenza Type B Ag (NEGATIVE) SARS-CoV-2 (PCR) (NEGATIVE) Group A Strep Antibody (NEGATIVE) 11/12/20 11/12/20 11/12/20 Range/Units 06:55 06:55 06:55 WBC 11.1 H (4.0-10.5) K/mm3 RBC 4.46 (4.1-5.4) M/mm3 Hgb 12.7 (12.0-16.0) gm/dl Hct 40.6 (35-47) % MCV 91.0 (78-100) fl MCH 28.5 (26-32) pg MCHC 31.3 L (32-36) g/dl RDW 14.2 H (11.5-14.0) % Plt Count 333 (150-450) K/mm3 MPV 10.3 (7.5-11.0) fl Gran % 70.4 H (36.0-66.0) % Eos # (Auto) 0.01 (0-0.5) Absolute Lymphs (auto) 2.36 (1.0-4.6) Absolute Monos (auto) 0.91 (0.0-1.3) Lymphocytes % 21.2 L (24.0-44.0) % Monocytes % 8.2 (0.0-12.0) % Eosinophils % 0.1 (0.00-5.0) % Basophils % 0.1 (0.0-0.4) % Absolute Granulocytes 7.83 H (1.4-6.9) Basophils # 0.01 (0-0.4) D-Dimer 1547 H* (215-500) ng/mL Puncture Site pCO2 (35-45) mmHg pO2 (75-100) mmHg Base Excess (-2.0-2.0) O2 Saturation (94-100) g/dF ABG pH (7.35-7.45) ABG HCO3 (22-28) ABG O2 Sat (Measured) (95-100) % Hiro Test A-a Gradient a/A Ratio Hemoglobin Carboxyhemoglobin (0.0-6.9) % THgb Methemoglobin (1.4-1.5) % Potassium 4.2 (3.5-5.1) Temperature C POC O2 Flow Rate % Sodium 136 L (137-145) mmol/L Chloride 102 (98-107) mmol/L Carbon Dioxide 26 (22-30) mmol/L Anion Gap 12.2 (5-15) MEQ/L BUN 27 H (7-17) mg/dL Creatinine 1.12 H (0.52-1.04) mg/dL Estimated GFR 51.6 ML/MIN Glucose 187 H (74-106) mg/dL Lactic Acid (0.4-2.0) Calcium 8.8 (8.4-10.2) mg/dL Ferritin (11.1-264) ng/mL Total Bilirubin 0.70 (0.2-1.3) mg/dL AST 58 H (14-36) U/L ALT 49 H (0-35) U/L Alkaline Phosphatase 92 (38-126) U/L Lactate Dehydrogenase 248 H (120-246) U/L Troponin I (0.000-0.034) ng/mL NT-Pro-B Natriuret Pep 3560 H (0-900) pg/mL Serum Total Protein 7.5 (6.3-8.2) g/dL Albumin 4.2 (3.5-5.0) g/dL Monoscreen (Negative) Influenza Type A Ag (NEGATIVE) Influenza Type B Ag (NEGATIVE) SARS-CoV-2 (PCR) (NEGATIVE) Group A Strep Antibody (NEGATIVE) 11/12/20 11/12/20 Range/Units 06:54 06:53 WBC (4.0-10.5) K/mm3 RBC (4.1-5.4) M/mm3 Hgb (12.0-16.0) gm/dl Hct (35-47) % MCV (78-100) fl MCH (26-32) pg MCHC (32-36) g/dl RDW (11.5-14.0) % Plt Count (150-450) K/mm3 MPV (7.5-11.0) fl Gran % (36.0-66.0) % Eos # (Auto) (0-0.5) Absolute Lymphs (auto) (1.0-4.6) Absolute Monos (auto) (0.0-1.3) Lymphocytes % (24.0-44.0) % Monocytes % (0.0-12.0) % Eosinophils % (0.00-5.0) % Basophils % (0.0-0.4) % Absolute Granulocytes (1.4-6.9) Basophils # (0-0.4) D-Dimer (215-500) ng/mL Puncture Site RIGHT BRACHIAL pCO2 56 H (35-45) mmHg pO2 120 H (75-100) mmHg Base Excess -2.1 L (-2.0-2.0) O2 Saturation 95.2 (94-100) g/dF ABG pH 7.27 L (7.35-7.45) ABG HCO3 25.7 (22-28) ABG O2 Sat (Measured) 98.2 (95-100) % Hiro Test NOT APPLICABLE A-a Gradient 124 a/A Ratio 0.49 Hemoglobin 12.9 Carboxyhemoglobin 2.2 (0.0-6.9) % THgb Methemoglobin 0.9 L (1.4-1.5) % Potassium 4.5 (3.5-5.1) Temperature 37.0 C POC O2 Flow Rate 44 % Sodium (137-145) mmol/L Chloride (98-107) mmol/L Carbon Dioxide (22-30) mmol/L Anion Gap (5-15) MEQ/L BUN (7-17) mg/dL Creatinine (0.52-1.04) mg/dL Estimated GFR ML/MIN Glucose (74-106) mg/dL Lactic Acid 1.3 (0.4-2.0) Calcium (8.4-10.2) mg/dL Ferritin (11.1-264) ng/mL Total Bilirubin (0.2-1.3) mg/dL AST (14-36) U/L ALT (0-35) U/L Alkaline Phosphatase (38-126) U/L Lactate Dehydrogenase (120-246) U/L Troponin I (0.000-0.034) ng/mL NT-Pro-B Natriuret Pep (0-900) pg/mL Serum Total Protein (6.3-8.2) g/dL Albumin (3.5-5.0) g/dL Monoscreen (Negative) Influenza Type A Ag (NEGATIVE) Influenza Type B Ag (NEGATIVE) SARS-CoV-2 (PCR) (NEGATIVE) Group A Strep Antibody (NEGATIVE) - Progress Progress: improved, re-examined Air Movement: fair Progress Note: 11/12/20 10:13 CTA of chest shows moderate bilateral pleural effusions. There is interlobular septal prominence consistent with volume overload or congestive heart failure. There is no evidence of any pulmonary emboli Medical decision making: This patient has a negative Covid 19 test. I believe she has COPD exacerbation and congestive heart failure symptoms that are worsening. I spoke with Dr. Pearl who is covering for Dr. Cary. I reviewed the patient history, condition, x-ray findings, EKG findings, and laboratory results. We will admit this patient into the hospital for diuresis, intravenous antibiotics, steroid injections and monitoring. Blood Culture(s) Obtained: Yes Counseled pt/family regarding: lab results, diagnosis, rad results - Departure Departure Disposition: In-patient Admission Clinical Impression: Congestive heart failure, COPD exacerbation Condition: Fair Critical Care Time: No Referrals: DANY CARY [Primary Care Provider] - Instructions: Heart Failure, Chronic Obstructive Pulmonary Disease
[2020-11-12 07:34] LABS: Absolute Neutrophil Ct (ANC) 7.83 (1.4-6.9); BASOPHIL % 0.1 % (0.0-0.4); Basophil (Absolute #) 0.01 (0-0.4); Eosinophil % 0.1 % (0.00-5.0); Eosinophil (Absolute #) 0.01 (0-0.5); Hematocrit 40.6 % (35-47); Hemoglobin 12.7 gm/dl (12.0-16.0); Lymphocyte (Absolute #) 2.36 (1.0-4.6); Lymphocytes % 21.2 % (24.0-44.0); Mean Corpuscular Hemoglobin 28.5 pg (26-32); Mean Corpuscular Hgb Concent. 31.3 g/dl (32-36); Mean Platelet Volume 10.3 fl (7.5-11.0); Monocyte (Absolute #) 0.91 (0.0-1.3); Monocytes % 8.2 % (0.0-12.0); Neutrophil % 70.4 % (36.0-66.0); Platelet Count 333 K/mm3 (150-450); Red Blood Count 4.46 M/mm3 (4.1-5.4); Red Cell Distribution Width 14.2 % (11.5-14.0); White Blood Count 11.1 K/mm3 (4.0-10.5)
[2020-11-12 08:17] LABS: ALBUMIN 4.2 g/dL (3.5-5.0); BILIRUBIN,TOTAL 0.7 mg/dL (0.2-1.3); Calcium 8.8 mg/dL (8.4-10.2); Creatinine 1 1.12 mg/dL (0.52-1.04); EST GLOMERULAR FILTRATION RATE 51.6 ML/MIN; Potassium 4.2 mmol/L (3.5-5.1); Total Protein 7.5 g/dL (6.3-8.2)
[2020-11-12 08:18] LABS: ANION GAP 12.2 MEQ/L (5-15)
[2020-11-12 08:25] LABS: INFLUENZA A NEGATIVE (NEGATIVE); INFLUENZA B NEGATIVE (NEGATIVE)
[2020-11-12] MEDS ORDERED: Lasix 40 MG/4 ML IV ONE (08:42)
[2020-11-12] MEDS ORDERED: Sodium Chloride 0.9% 1000 ML 1,000 ML IV SCH (08:45)
--- NOTE | 2020-11-12 09:06 | XRAY ---
Indication: Cough and short of breath. Suspect Covid 19. Comparison: August 11, 2018. Portable chest demonstrates new cardiomegaly, pulmonary edema, and bibasilar effusions right greater the left favoring cardiac decompensation/CHF. Superimposed pneumonia not completely excluded.
[2020-11-12] MEDS ORDERED: Lasix 40 MG/4 ML ONE (09:41)
[2020-11-12] MEDS ORDERED: TYLENOL 325 MG PO PRN (10:48)
[2020-11-12] MEDS ORDERED: Zofran 4 MG/2 ML VIAL IV PRN (10:48)
[2020-11-12] MEDS ORDERED: PHARMACY DOSING REQUEST MC ONE (12:20)
[2020-11-12] MEDS: ENOXAPARIN SODIUM SQ SCH (13:17)
[2020-11-12] MEDS: solu-MEDROL 125 MG IV SCH ×2 (13:17→22:09)
[2020-11-12] MEDS: ROCEPHIN 1 Gm-D5w 50 ml Bag** 1 G/50 ML IVPB IV SCH (13:17)
[2020-11-12] MEDS: Sodium Chloride 0.9% 1000 ML 1,000 ML IV SCH (13:18)
[2020-11-12] MEDS: DUONEB 0.5-3 MG/3 ml Neb IH SCH ×3 (13:42→23:04)
[2020-11-12] MEDS: Zithromax 500 MG/ 250 ML NaCl Premix 500 MG/250 ML IVPB IV SCH (14:07)
[2020-11-12] MEDS ORDERED: Ventolin Hfa MDI IH PRN (14:49)
[2020-11-12] MEDS ORDERED: ALBUTEROL SULFATE IH PRN (14:49)
[2020-11-12] MEDS ORDERED: VENTOLIN COMMON CANISTER IH PRN (14:55)
[2020-11-12] MEDS ORDERED: PROVENTIL 2.5 MG/3 ML NEB IH PRN (14:56)
[2020-11-12] MEDS ORDERED: CLONIDINE HCL 0.3 MG PO SCH (15:00)
[2020-11-12] MEDS: ECOTRIN 81 MG PO SCH (15:52)
[2020-11-12] MEDS: Zestril 20 MG PO SCH (15:52)
[2020-11-12] MEDS: Catapres 0.1 MG PO SCH ×2 (15:52→22:06)
[2020-11-12] MEDS: ZOCOR 20MG PO SCH (15:52)
[2020-11-12] MEDS: Lasix 40 MG/4 ML IV SCH (17:32)
[2020-11-12] MEDS: Advair Hfa 115/21 Common canister IH SCH (18:50)
--- NOTE | 2020-11-12 19:02 | XRAY ---
Indication: Short of breath and cough. Elevated d-dimer. Multiple contiguous axial images obtained through the chest using 100 cc Isovue 370 contrast and PE protocol. Comparison: August 02, 2015. There is good opacification of the pulmonary arteries to include the lobar and segmental branches. No pulmonary embolus. Heart is now enlarged. Aorta remains mildly arteriosclerotic without aneurysm/dissection. No pathologic mediastinal/hilar lymphadenopathy. Lungs demonstrates new moderate bilateral pleural effusions with minimal bibasilar compressive atelectasis. Bony thorax intact again with mild degenerative changes throughout the spine. Limited upper abdomen again demonstrates splenic calcified granulomas. Impression: 1. Continued negative pulmonary embolus. 2. New cardiomegaly and bilateral effusions favoring cardiac decompensation/CHF. Comment: Preliminary interpretation was made by [facility]. No critical discrepancy.
[2020-11-12] MEDS: COREG 12.5 MG PO SCH (22:06)
[2020-11-13] MEDS: Lasix 40 MG/4 ML IV SCH ×3 (01:06→16:26)
[2020-11-13] MEDS: DUONEB 0.5-3 MG/3 ml Neb IH SCH ×6 (02:56→23:30)
[2020-11-13] MEDS: solu-MEDROL 125 MG IV SCH ×3 (05:55→22:07)
[2020-11-13] MEDS: Advair Hfa 115/21 Common canister IH SCH ×2 (06:45→19:49)
[2020-11-13 07:15] LABS: Absolute Neutrophil Ct (ANC) 5.14 (1.4-6.9); BASOPHIL % 0.2 % (0.0-0.4); Basophil (Absolute #) 0.01 (0-0.4); Eosinophil (Absolute #) 0 (0-0.5); Hematocrit 35.9 % (35-47); Hemoglobin 11.4 gm/dl (12.0-16.0); Lymphocyte (Absolute #) 0.36 (1.0-4.6); Lymphocytes % 6.3 % (24.0-44.0); Mean Cell Volume 89.3 fl (78-100); Mean Corpuscular Hemoglobin 28.4 pg (26-32); Mean Corpuscular Hgb Concent. 31.8 g/dl (32-36); Mean Platelet Volume 10.6 fl (7.5-11.0); Monocyte (Absolute #) 0.23 (0.0-1.3); Neutrophil % 89.5 % (36.0-66.0); Platelet Count 223 K/mm3 (150-450); Red Blood Count 4.02 M/mm3 (4.1-5.4); Red Cell Distribution Width 13.7 % (11.5-14.0); White Blood Count 5.7 K/mm3 (4.0-10.5)
[2020-11-13 08:14] LABS: Slide Review 1 YES
[2020-11-13 08:24] LABS: ALBUMIN 3.6 g/dL (3.5-5.0); ANION GAP 9.6 MEQ/L (5-15); BILIRUBIN,TOTAL 0.7 mg/dL (0.2-1.3); Calcium 8.8 mg/dL (8.4-10.2); Creatinine 1 1.09 mg/dL (0.52-1.04); EST GLOMERULAR FILTRATION RATE 53.2 ML/MIN; Potassium 4.1 mmol/L (3.5-5.1); Total Protein 6.3 g/dL (6.3-8.2)
[2020-11-13] MEDS ORDERED: UMECLIDIN IH SCH (10:00)
[2020-11-13] MEDS ORDERED: FLUTICASONE IH SCH (10:00)
[2020-11-13] MEDS ORDERED: LIPITOR 40MG PO SCH (10:00)
[2020-11-13] MEDS ORDERED: NON-FORMULARY ITEM (Chlorthalidone [Chlorthalidone] 25 MG) PO SCH (10:00)
[2020-11-13] MEDS ORDERED: VILANTER IH SCH (10:00)
[2020-11-13] MEDS ORDERED: NON-FORMULARY ITEM (Lisinopril [Zestril 40 Mg] 40 MG) PO SCH (10:00)
[2020-11-13] MEDS: Zestril 20 MG PO SCH (10:02)
[2020-11-13] MEDS: Catapres 0.1 MG PO SCH ×3 (10:02→22:06)
[2020-11-13] MEDS: ENOXAPARIN SODIUM SQ SCH (10:02)
[2020-11-13] MEDS: ZOCOR 20MG PO SCH (10:02)
[2020-11-13] MEDS: ECOTRIN 81 MG PO SCH (10:02)
[2020-11-13] MEDS: ROCEPHIN 1 Gm-D5w 50 ml Bag** 1 G/50 ML IVPB IV SCH (10:02)
[2020-11-13] MEDS: COREG 12.5 MG PO SCH (10:03)
[2020-11-13] MEDS: Sodium Chloride 0.9% 1000 ML 1,000 ML IV SCH (10:26)
--- NOTE | 2020-11-13 11:48 | PCM.HP ---
History of Present Illness - Chief Complaint Chief Complaint: CHF COPD Date: 11/13/20 History of Present Illness: is a 65 year old female. Presented to ER yesterday with increasing sob. Pt. also noted to have some wheezes and found to have CHF, and likely some small exacerbation of COPD - Review of Systems Constitutional: No Fever, No Chills Eyes: No Symptoms Ears, Nose, & Throat: No Symptoms Respiratory: Cough, Short Of Breath Cardiac: No Chest Pain, No Edema, No Syncope Abdominal/Gastrointestinal: No Abdominal Pain, No Nausea, No Vomiting, No Diarrhea Genitourinary Symptoms: No Dysuria Musculoskeletal: No Back Pain, No Neck Pain Skin: No Rash Neurological: No Dizziness, No Focal Weakness, No Sensory Changes Psychological: No Symptoms Endocrine: No Symptoms Hematologic/Lymphatic: No Symptoms Immunological/Allergic: No Symptoms Medications & Allergies Home Medications: Home Medication List Tramadol HCl 50 mg [Ultram 50 mg] 1 tab PO BID PRN PRN 01/13/14 [History Confirmed 11/12/20] Albuterol 8 gm Mdi Hfa [Ventolin Hfa MDI] 2 puffs IH Q4H PRN PRN 08/02/15 [History Confirmed 11/12/20] lisinopriL [Zestril 40 mg] 40 mg PO DAILY #30 tablet 08/03/15 [Rx Confirmed 11/12/20] Clonidine HCl [Catapres] 0.3 mg PO TID 07/28/18 [History Confirmed 11/12/20] Atorvastatin Calcium [Lipitor] 40 mg PO DAILY 12/06/18 [History Confirmed 11/12/20] Aspirin EC 81 mg [Ecotrin 81 mg] 1 tab PO DAILY #0 04/04/20 [Rx Confirmed 11/12/20] Fluticasone/Umeclidin/Vilanter [Trelegy Ellipta 100-62.5-25] 1 inh IH DAILY 04/04/20 [History Confirmed 11/12/20] Albuterol Sulfate 1 amp IH QID PRN PRN 11/12/20 [History Confirmed 11/12/20] Carvedilol 12.5 mg [Coreg 12.5 mg] 12.5 mg PO BID 11/12/20 [History Confirmed 11/12/20] Cefdinir [Omnicef 300 mg] 300 mg PO BID 11/12/20 [History Confirmed 11/12/20] Chlorthalidone 25 mg PO DAILY 11/12/20 [History Confirmed 11/12/20] Prednisone 10 mg [Deltasone 10 mg] 10 mg PO UD 11/12/20 [History Confirmed 11/12/20] dilTIAZem HCl [Diltiazem 24Hr Cd] 180 mg PO BID 11/13/20 [History Confirmed 11/13/20] Allergies/Adverse Reactions: Allergies Allergy/AdvReac Type Severity Reaction Status Date / Time No Known Drug Allergies Allergy Verified 11/12/20 06:44 - Past Medical History Past Medical History: Yes Neurological History: Migraines ENT History: No Pertinent History Cardiac History: High Cholesterol, Hypertension Respiratory History: Asthma, COPD, Emphysema, Other Endocrine Medical History: No Pertinent History Musculoskelatal History: Arthritis GI Medical History: Gallbladder Disease History: No Pertinent History Pyscho-Social History: Anxiety Reproductive Disorders: No Pertinent History Comment: 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 - Female History Hx Last Menstrual Period: 46 years ago Are you now?: No - Past Surgical History Past Surgical History: Yes Neuro Surgical History: No Pertinent History Cardiac History: No Pertinent History Respiratory Surgery: No Pertinent History GI Surgical History: Cholecystectomy Genitourinary Surgical Hx: No Pertinent History Musculskeletal Surgical Hx: Orthopedic Surgery Female Surgical History: Hysterectomy Other Surgical History: right knee replacement, screw in pelvis, misha in left leg - Social History Smoking Status: Current every day smoker How long have you smoked: 47 years Exposure to second hand smoke: Yes Alcohol: None Drug Use: none - Physical Exam Vital Signs: Vital Signs - 24 hr Temp Pulse Resp BP Pulse Ox 11/13/20 11:07 68 18 96 11/13/20 08:00 97.5 F 74 18 136/84 93 L 11/13/20 07:16 74 18 90 L 11/13/20 05:00 98.6 F 76 16 127/70 94 L 11/13/20 02:56 72 18 90 L 11/13/20 01:00 98.5 F 73 17 129/77 93 L 11/12/20 23:04 74 17 92 L 11/12/20 21:00 92 L 11/12/20 20:00 97.8 F 82 16 133/78 95 11/12/20 18:46 81 15 93 L 11/12/20 16:00 98.0 F 88 24 137/90 95 11/12/20 13:52 93 H 16 98 11/12/20 12:47 96 11/12/20 12:40 96 H 24 96 11/12/20 12:00 98.0 F 96 H 24 170/103 96 Oxygen-Last 24 hours Oxygen Flowrate (L/min)-RT 3 Oxygen Flowrate (L/min)-RT 3 Oxygen Flowrate (L/min)-RT 3 General Appearance: no apparent distress Neurologic Exam: alert, cooperative Eye Exam: PERRL/EOMI, eyes nml inspection Ears, Nose, Throat Exam: normal ENT inspection, moist mucous membranes Neck Exam: normal inspection, non-tender, supple Respiratory Exam: normal breath sounds, lungs clear, No chest tenderness Cardiovascular Exam: regular rate/rhythm, normal heart sounds Gastrointestinal/Abdomen Exam: soft, normal bowel sounds, No tenderness, No distention Pelvic Exam: not done Rectal Exam: deferred Back Exam: normal inspection Extremity Exam: normal inspection Results - Labs Lab/Micro Results: Lab Results-Last 24 Hours 11/12/20 11/12/20 11/12/20 Range/Units 13:41 16:25 19:36 WBC (4.0-10.5) K/mm3 RBC (4.1-5.4) M/mm3 Hgb (12.0-16.0) gm/dl Hct (35-47) % MCV (78-100) fl MCH (26-32) pg MCHC (32-36) g/dl RDW (11.5-14.0) % Plt Count (150-450) K/mm3 MPV (7.5-11.0) fl Gran % (36.0-66.0) % Eos # (Auto) (0-0.5) Absolute Lymphs (auto) (1.0-4.6) Absolute Monos (auto) (0.0-1.3) Lymphocytes % (24.0-44.0) % Monocytes % (0.0-12.0) % Eosinophils % (0.00-5.0) % Basophils % (0.0-0.4) % Absolute Granulocytes (1.4-6.9) Basophils # (0-0.4) Sodium (137-145) mmol/L Potassium (3.5-5.1) mmol/L Chloride (98-107) mmol/L Carbon Dioxide (22-30) mmol/L Anion Gap (5-15) MEQ/L BUN (7-17) mg/dL Creatinine (0.52-1.04) mg/dL Estimated GFR ML/MIN Glucose (74-106) mg/dL Calcium (8.4-10.2) mg/dL Total Bilirubin (0.2-1.3) mg/dL AST (14-36) U/L ALT (0-35) U/L Alkaline Phosphatase (38-126) U/L Troponin I 0.054 H* 0.047 H* 0.038 H* (0.000-0.034) ng/mL NT-Pro-B Natriuret Pep (0-900) pg/mL Serum Total Protein (6.3-8.2) g/dL Albumin (3.5-5.0) g/dL Slides for Path Review 11/13/20 11/13/20 Range/Units 05:00 05:00 WBC 5.7 (4.0-10.5) K/mm3 RBC 4.02 L (4.1-5.4) M/mm3 Hgb 11.4 L (12.0-16.0) gm/dl Hct 35.9 (35-47) % MCV 89.3 (78-100) fl MCH 28.4 (26-32) pg MCHC 31.8 L (32-36) g/dl RDW 13.7 (11.5-14.0) % Plt Count 223 (150-450) K/mm3 MPV 10.6 (7.5-11.0) fl Gran % 89.5 H (36.0-66.0) % Eos # (Auto) 0 (0-0.5) Absolute Lymphs (auto) 0.36 L (1.0-4.6) Absolute Monos (auto) 0.23 (0.0-1.3) Lymphocytes % 6.3 L (24.0-44.0) % Monocytes % 4.0 (0.0-12.0) % Eosinophils % 0.0 (0.00-5.0) % Basophils % 0.2 (0.0-0.4) % Absolute Granulocytes 5.14 (1.4-6.9) Basophils # 0.01 (0-0.4) Sodium 133 L (137-145) mmol/L Potassium 4.1 (3.5-5.1) mmol/L Chloride 96 L (98-107) mmol/L Carbon Dioxide 31 H (22-30) mmol/L Anion Gap 9.6 (5-15) MEQ/L BUN 28 H (7-17) mg/dL Creatinine 1.09 H (0.52-1.04) mg/dL Estimated GFR 53.2 ML/MIN Glucose 141 H (74-106) mg/dL Calcium 8.8 (8.4-10.2) mg/dL Total Bilirubin 0.70 (0.2-1.3) mg/dL AST 32 (14-36) U/L ALT 42 H (0-35) U/L Alkaline Phosphatase 78 (38-126) U/L Troponin I (0.000-0.034) ng/mL NT-Pro-B Natriuret Pep 4090 H (0-900) pg/mL Serum Total Protein 6.3 (6.3-8.2) g/dL Albumin 3.6 (3.5-5.0) g/dL Slides for Path Review YES - Radiology Impressions Radiology Exams & Impressions: Radiology Procedures Category Date Time Status CHEST 1 VIEW (PORTABLE) Stat Exams 11/12/20 07:23 Completed CHEST WITH CONTRAST [CT] Stat Exams 11/12/20 08:43 Completed - Other Procedures and Tests Respiratory Therapy 11/12/20 10:48 Oxygen Nasal Cannula 4 lpm 11/12/20 12:36 Respiratory Therapy Assessment DAILY Assessment/Plan (1) Congestive heart failure Current Visit: Yes Status: Acute Assessment & Plan: aggressive diuresis will persist, pt. is feeling better at this am, but not well enough to care for herself at home. Code(s): I50.9 - HEART FAILURE, UNSPECIFIED (2) Acute exacerbation of chronic obstructive pulmonary disease (COPD) Current Visit: No Status: Acute Assessment & Plan: IV antibiotics in ER will be continued. Code(s): J44.1 - CHRONIC OBSTRUCTIVE PULMONARY DISEASE W (ACUTE) EXACERBATION
[2020-11-13] MEDS: Zithromax 500 MG/ 250 ML NaCl Premix 500 MG/250 ML IVPB IV SCH (12:09)
[2020-11-13] MEDS ORDERED: Klor Con 10 MEQ PO ONE (13:00)
[2020-11-13] MEDS: Cardizem CD 180 MG PO SCH (22:05)
[2020-11-14] MEDS: Lasix 40 MG/4 ML IV SCH (00:55)
[2020-11-14] MEDS: COREG 12.5 MG PO SCH ×3 (01:12→21:56)
[2020-11-14] MEDS: DUONEB 0.5-3 MG/3 ml Neb IH SCH ×6 (03:41→22:33)
[2020-11-14 05:40] LABS: Hematocrit 36.9 % (35-47); Hemoglobin 11.7 gm/dl (12.0-16.0); Mean Cell Volume 88.7 fl (78-100); Mean Corpuscular Hemoglobin 28.1 pg (26-32); Mean Corpuscular Hgb Concent. 31.7 g/dl (32-36); Mean Platelet Volume 10.5 fl (7.5-11.0); Platelet Count 234 K/mm3 (150-450); Red Blood Count 4.16 M/mm3 (4.1-5.4); Red Cell Distribution Width 13.5 % (11.5-14.0); White Blood Count 5.9 K/mm3 (4.0-10.5)
[2020-11-14 06:02] LABS: Calcium 8.7 mg/dL (8.4-10.2); Creatinine 1 1.17 mg/dL (0.52-1.04); Potassium 3.7 mmol/L (3.5-5.1)
[2020-11-14] MEDS: Advair Hfa 115/21 Common canister IH SCH ×2 (06:46→19:08)
[2020-11-14] MEDS: solu-MEDROL 125 MG IV SCH ×3 (07:06→21:56)
[2020-11-14] MEDS: Sodium Chloride 0.9% 1000 ML 1,000 ML IV SCH ×2 (07:09→16:52)
--- NOTE | 2020-11-14 08:48 | PCM.NOTE ---
Date and Time: 11/14/20 08 Subjective Assessment: Pt is feeling much better than at admission, but still markedly short of breath when I enter the room (states she just turned around too quickly to get her phone urologist). Alejandro po, but c/o difficulty swallowing solids (hx EGD with esophageal stricture about 8 mo ago). - Review of Systems Constitutional: No Fever Respiratory: Short Of Breath Objective Exam General Appearance: mild distress, alert Neurologic Exam: oriented x 3, cooperative Skin Exam: normal color, warm, dry, No rash Eye Exam: eyes nml inspection Ears, Nose, Throat Exam: moist mucous membranes Neck Exam: normal inspection Respiratory Exam: diminished breath sounds, wheezing (expiratory, faint, throughout), No crackles/rales, No rhonchi Cardiovascular Exam: regular rate/rhythm, normal heart sounds, No murmur Gastrointestinal/Abdomen Exam: soft, normal bowel sounds, No tenderness, No distention, No mass, No guarding, No rebound Extremity Exam: No pedal edema, No swelling Back Exam: normal inspection, No rash OBJECTIVE DATA Vital Signs: Vital Signs - 24 hr Temp Pulse Resp BP Pulse Ox 11/14/20 07:11 97.4 F 71 16 122/68 93 L 11/14/20 06:50 76 20 93 L 11/14/20 04:00 98.1 F 72 21 129/81 91 L 11/14/20 03:41 72 22 92 L 11/14/20 00:00 97.8 F 77 22 131/80 93 L 11/13/20 19:51 97.8 F 81 24 117/65 93 L 11/13/20 19:50 77 18 92 L 11/13/20 17:00 96.3 F 71 18 124/76 93 L 11/13/20 16:37 69 18 97 11/13/20 13:00 97.6 F 73 20 123/60 93 L 11/13/20 11:07 68 18 96 Oxygen-Last 24 hours Oxygen Flowrate (L/min)-RT 3 Oxygen Flowrate (L/min)-RT 3 Oxygen Flowrate (L/min)-RT 3 Pain Assessment - Last Documented Pain Intensity 0 Intake and Output: Intake & Output 11/11/20 11/12/20 11/13/20 11/14/20 11:59 11:59 11:59 11:59 Intake Total 9693 6946 Output Total 4368 1603 8684 Balance -4570 -131 -6288 Weight 85 kg 82.5 kg 83.06 kg Lab Results: Lab Results-Last 24 Hours 11/14/20 11/14/20 Range/Units 05:12 05:12 WBC 5.9 (4.0-10.5) K/mm3 RBC 4.16 (4.1-5.4) M/mm3 Hgb 11.7 L (12.0-16.0) gm/dl Hct 36.9 (35-47) % MCV 88.7 (78-100) fl MCH 28.1 (26-32) pg MCHC 31.7 L (32-36) g/dl RDW 13.5 (11.5-14.0) % Plt Count 234 (150-450) K/mm3 MPV 10.5 (7.5-11.0) fl Sodium 132 L (137-145) mmol/L Potassium 3.7 (3.5-5.1) mmol/L Chloride 92 L (98-107) mmol/L Carbon Dioxide 34 H (22-30) mmol/L Anion Gap 10.0 (5-15) MEQ/L BUN 33 H (7-17) mg/dL Creatinine 1.17 H (0.52-1.04) mg/dL Estimated GFR 49.0 ML/MIN Glucose 202 H (74-106) mg/dL Calcium 8.7 (8.4-10.2) mg/dL Radiology Exams: Radiology Procedures Category Date Time Status CHEST WITH CONTRAST [CT] Stat Exams 11/12/20 08:43 Completed Multi-Disciplinary Progress Notes: Multi-Disciplinary Progress Notes 11/13/20 19:56 Respiratory Note by Simeon Baird I WAS INFORMED IN REPORT THAT PT USES 3LPM AT BUT PT TOLD ME THAT SHE DOESN'T HAVE O2 AT [facility] SHE WAS USING HER SISTERS O2 BECAUSE SHE COULDN'T BREATHE. SHE STATED THAT DR. ROBERTS WAS SUPPOSED ORDER IT FOR HER WHEN SHE WENT . I WILL PASS THIS INFO ALONG TO DAY SHIFT TO ASSURE ALL ORDERS/INFO IS IN PLACE. Initialized on 11/13/20 19:56 - END OF NOTE Assessment/Plan (1) COPD exacerbation Current Visit: Yes Status: Acute Assessment & Plan: I think this is now her main issue. On rocephin/zithromax day #3 IV. 80mg IV steroids q8h - will leave at this dose. Pt is not ready to d/c home today and I think may even be a few more days. She would like to go home but markedly SOB even with turning around in bed. Code(s): J44.1 - CHRONIC OBSTRUCTIVE PULMONARY DISEASE W (ACUTE) EXACERBATION (2) Congestive heart failure Current Visit: Yes Status: Chronic Qualifiers: Heart failure type: diastolic Heart failure chronicity: chronic Qualified Code(s): I50.32 - Chronic diastolic (congestive) heart failure Assessment & Plan: Stopped IV lasix. Will repeat echo as last one was done Aug 2018. Code(s): I50.9 - HEART FAILURE, UNSPECIFIED (3) Muscular deconditioning Current Visit: Yes Status: Acute Assessment & Plan: PT consulted Code(s): R29.898 - OTH SYMPTOMS AND SIGNS INVOLVING THE MUSCULOSKELETAL SYSTEM (4) Dysphagia Current Visit: Yes Status: Acute Qualifiers: Dysphagia type: unspecified Qualified Code(s): R13.10 - Dysphagia, unspecified Assessment & Plan: Hx of esophageal stricture - surgery consulted, thank you. Code(s): R13.10 - DYSPHAGIA, UNSPECIFIED
[2020-11-14] MEDS: Zithromax 500 MG/ 250 ML NaCl Premix 500 MG/250 ML IVPB IV SCH (09:56)
[2020-11-14] MEDS: Catapres 0.1 MG PO SCH ×3 (10:00→21:56)
[2020-11-14] MEDS: Cardizem CD 180 MG PO SCH ×2 (10:00→21:56)
[2020-11-14] MEDS: ZOCOR 20MG PO SCH (10:01)
[2020-11-14] MEDS: ECOTRIN 81 MG PO SCH (10:01)
[2020-11-14] MEDS: Zestril 20 MG PO SCH (10:01)
[2020-11-14] MEDS: ENOXAPARIN SODIUM SQ SCH (10:01)
[2020-11-14] MEDS: ROCEPHIN 1 Gm-D5w 50 ml Bag** 1 G/50 ML IVPB IV SCH (11:17)
[2020-11-14] MEDS ORDERED: Versed 2 MG/2 ML Injection ONE (14:59)
[2020-11-14] MEDS ORDERED: DIPRIVAN 200 MG/20 ML IV ONE (14:59)
[2020-11-15] MEDS: DUONEB 0.5-3 MG/3 ml Neb IH SCH ×6 (02:53→22:51)
[2020-11-15 05:27] LABS: Basophil (Absolute #) 0 (0-0.4); Eosinophil (Absolute #) 0 (0-0.5); Hematocrit 36.1 % (35-47); Hemoglobin 11.3 gm/dl (12.0-16.0); Lymphocyte (Absolute #) 0.38 (1.0-4.6); Lymphocytes % 6.3 % (24.0-44.0); Mean Cell Volume 89.4 fl (78-100); Mean Corpuscular Hgb Concent. 31.3 g/dl (32-36); Mean Platelet Volume 10.4 fl (7.5-11.0); Monocyte (Absolute #) 0.25 (0.0-1.3); Monocytes % 4.1 % (0.0-12.0); Neutrophil % 89.6 % (36.0-66.0); Platelet Count 228 K/mm3 (150-450); Red Blood Count 4.04 M/mm3 (4.1-5.4); Red Cell Distribution Width 13.7 % (11.5-14.0)
[2020-11-15 06:03] LABS: ANION GAP 7.7 MEQ/L (5-15); Calcium 8.7 mg/dL (8.4-10.2); Creatinine 1 1.03 mg/dL (0.52-1.04); EST GLOMERULAR FILTRATION RATE 56.8 ML/MIN; Potassium 3.9 mmol/L (3.5-5.1)
[2020-11-15 06:49] LABS: Slide Review 1 YES
[2020-11-15] MEDS: solu-MEDROL 125 MG IV SCH ×3 (07:04→22:43)
[2020-11-15] MEDS: Advair Hfa 115/21 Common canister IH SCH ×2 (07:27→19:13)
--- NOTE | 2020-11-15 08:11 | CONS ---
CONSULT DATE: 11/14/2020 HISTORY: The patient is a 65 year old who came in with some chronic obstructive pulmonary disease, congestive heart failure exacerbation. Since she has been here she has improved from that but had increased swallowing dysphagia upper esophagus. I was asked to evaluate for dysphagia. PAST MEDICAL HISTORY: Congestive heart failure, chronic obstructive pulmonary disease, hypertension, hyperlipidemia. PAST SURGICAL HISTORY: She had multiple previous pertinent surgical procedures. She had multiple previous EGD's and dilatations in the past. MEDICATIONS: Diltiazem, prednisone, chlorthalidone, Omnicef, carvedilol, Albuterol, furosemide, Lisinopril, Simvastatin, tramadol, Zithromax, ceftriaxone, Coreg, Catapres. She had been on some Lovenox previously. ALLERGIES: NKDA. LAB DATA AND TESTS: White count 5.9, hemoglobin 11.7, PLT 234,000. Alkaline phosphatase 78, total bilirubin 0.7. FAMILY HISTORY: As reviewed per history and physical. SOCIAL HISTORY: No alcohol abuse. REVIEW OF SYSTEMS: Fourteen systems reviewed pertinent for the acute congestive heart failure and chronic obstructive pulmonary disease exacerbation recently as well as the dysphagia. No chest pain or palpitations currently. PHYSICAL EXAMINATION: VITAL SIGNS: Temperature 98.1F, pulse 72, blood pressure 126/81. GENERAL: A chronically ill female. HEENT: Sclera nonicteric. NECK: No JVD. CHEST: Equal excursion, nonlabored breathing. CVS: Regular rate and rhythm. ABDOMEN: Soft. EXTREMITIES: No significant edema. NEURO: Alert, moving extremities grossly symmetrically. PSYCH: Appropriate mood and affect. IMPRESSION: Dysphagia. I feel the patient would benefit from EGD possible biopsy, possible dilatation. Risks and benefits explained in detail including but not limited to bleeding or infection, risk of bowel injury or perforation possibly requiring further procedure, ongoing morbidity, risk of missed or nondiagnosis, possibility that dilatation will not improve her dysphagia and possibly require other procedures or treatment, general risk of anesthesia or sedation but not limited to. She agreed to the planned procedure, will proceed with EGD, dilatation possible biopsy.
--- NOTE | 2020-11-15 08:34 | OP ---
SURGERY DATE/TIME: 11/14/2020 1515 PREOPERATIVE DIAGNOSIS: Dysphagia. POSTOPERATIVE DIAGNOSES: 1) Proximal esophageal narrowing and spasm. 2) Mild gastritis. PROCEDURES: 1) EGD with cold biopsy of antrum and cold biopsy distal esophagus. 2) Proximal esophageal dilatation symptomatic proximal esophageal narrowing (size 20 balloon dilator). SURGEON: Dr. Triston Peterson. ANESTHESIA: MAC. ESTIMATED BLOOD LOSS: Minimal. INDICATIONS: As noted above. Risks and benefits explained in detail and not limited to and consent obtained. DESCRIPTION OF PROCEDURE AND FINDINGS: The patient is taken to the endoscopy room. MAC anesthesia introduced. After official time out and no disagreement with planned procedure, bite block positioned. Video gastroscope passed down the esophagus to the proximal esophageal narrowing and spasm this is where she is having symptoms. There is no obvious mass or lesion to biopsy in this area but it was felt that it would benefit from dilating as this is where she is having symptoms. She had some narrowing and spasm. The scope was passed through the gastroesophageal junction about 40 cm to the patent pylorus to the junction of the second and third portion of the duodenum. Proximal duodenum is grossly unremarkable. No signs of any ulcers or masses. The scope pulled back in the stomach. She did have some mild gastric erythema. Cold biopsy is taken to evaluate for Helicobacter pylori. Good hemostasis noted. Otherwise on retroflex the gastroesophageal junction is fairly snug against the scope. There are no signs of any endoscopically viewable large hiatal hernia. The scope was straightened. Gastroesophageal junction is about 40 cm. There is mild erythema distal esophagus and some cold biopsy taken to evaluate for short segment distal gastroesophagitis. Otherwise, no obvious masses or mucosal lesions. On withdrawal of the scope up to the proximal esophageal narrowing, there is no obvious mass or lesion to biopsy in this area but given the narrowed area and the fact that she is having symptoms there, it was felt she warranted dilatation. Therefore the scope was then passed back down the stomach. The balloon dilator carefully placed under direct view in the stomach and then pulled up to the proximal esophageal narrowed area where it was gradually inflated first stage for 45 seconds, second stage for 45 seconds, final stage size 20 balloon dilator for two minutes. It was then released and the balloon catheter withdrawn. The scope much more easily passed through the dilated area, then back into the stomach and gradually withdrawn. The biopsy sites in the distal esophagus had good hemostasis. The proximal esophagus area that had been dilated had good hemostasis. No signs of any full thickness issues or injury secondary to dilatation. The patient tolerated the procedure well. There were no immediate complications. There was no family here to discuss the findings with.
[2020-11-15] MEDS: ZOCOR 20MG PO SCH (09:06)
[2020-11-15] MEDS: Catapres 0.1 MG PO SCH ×3 (09:06→22:42)
[2020-11-15] MEDS: COREG 12.5 MG PO SCH ×2 (09:06→22:43)
[2020-11-15] MEDS: Zestril 20 MG PO SCH (09:06)
[2020-11-15] MEDS: Zithromax 500 MG/ 250 ML NaCl Premix 500 MG/250 ML IVPB IV SCH (09:07)
[2020-11-15] MEDS: Cardizem CD 180 MG PO SCH ×2 (09:07→22:42)
[2020-11-15] MEDS: ROCEPHIN 1 Gm-D5w 50 ml Bag** 1 G/50 ML IVPB IV SCH (11:30)
[2020-11-15] MEDS: Sodium Chloride 0.9% 1000 ML 1,000 ML IV SCH (14:39)
--- NOTE | 2020-11-15 16:54 | PCM.NOTE ---
Date and Time: 11/15/20 1652 Subjective Assessment: Pt seen this morning approx 0830. She was feeling better. Eating breakfast. Says, "I can breathe now" but still c/o wheezing. - Review of Systems Constitutional: No Fever Respiratory: Cough, Short Of Breath Objective Exam General Appearance: no apparent distress, alert Neurologic Exam: oriented x 3, cooperative Skin Exam: normal color, warm, dry, No rash Eye Exam: eyes nml inspection Ears, Nose, Throat Exam: moist mucous membranes Neck Exam: normal inspection Respiratory Exam: lungs clear, diminished breath sounds (fair air exchange), wheezing (scattered), No crackles/rales, No rhonchi Cardiovascular Exam: regular rate/rhythm, normal heart sounds, No murmur Gastrointestinal/Abdomen Exam: soft, normal bowel sounds, No tenderness, No distention, No mass, No guarding, No rebound Extremity Exam: normal inspection, No swelling, No tenderness Back Exam: normal inspection, No rash OBJECTIVE DATA Vital Signs: Vital Signs - 24 hr Temp Pulse Resp BP Pulse Ox 11/15/20 16:00 97.4 F 63 16 127/73 97 11/15/20 15:37 60 18 96 11/15/20 12:00 98.1 F 72 16 118/75 97 11/15/20 11:36 71 18 95 11/15/20 07:42 98.2 F 80 18 147/87 97 11/15/20 07:29 65 18 95 11/15/20 04:00 98.1 F 74 16 119/75 96 11/15/20 02:54 70 22 95 11/15/20 00:00 97.6 F 75 16 137/85 98 11/14/20 22:35 75 18 96 11/14/20 22:19 95 11/14/20 20:00 97.8 F 78 16 146/80 96 11/14/20 19:11 79 20 97 Pain Assessment - Last Documented Pain Intensity 0 Intake and Output: Intake & Output 11/13/20 11/14/20 11/15/20 11/16/20 11:59 11:59 11:59 11:59 Intake Total 3011 3098 3259 580 Output Total 3150 3800 1200 1600 Balance -139 -702 9259 -1020 Weight 82.5 kg 83.06 kg 82.8 kg 82.8 kg Lab Results: Lab Results-Last 24 Hours 11/15/20 11/15/20 Range/Units 04:43 04:43 WBC 6.0 (4.0-10.5) K/mm3 RBC 4.04 L (4.1-5.4) M/mm3 Hgb 11.3 L (12.0-16.0) gm/dl Hct 36.1 (35-47) % MCV 89.4 (78-100) fl MCH 28.0 (26-32) pg MCHC 31.3 L (32-36) g/dl RDW 13.7 (11.5-14.0) % Plt Count 228 (150-450) K/mm3 MPV 10.4 (7.5-11.0) fl Gran % 89.6 H (36.0-66.0) % Eos # (Auto) 0 (0-0.5) Absolute Lymphs (auto) 0.38 L (1.0-4.6) Absolute Monos (auto) 0.25 (0.0-1.3) Lymphocytes % 6.3 L (24.0-44.0) % Monocytes % 4.1 (0.0-12.0) % Eosinophils % 0.0 (0.00-5.0) % Basophils % 0.0 (0.0-0.4) % Absolute Granulocytes 5.40 (1.4-6.9) Basophils # 0 (0-0.4) Sodium 132 L (137-145) mmol/L Potassium 3.9 (3.5-5.1) mmol/L Chloride 97 L (98-107) mmol/L Carbon Dioxide 32 H (22-30) mmol/L Anion Gap 7.7 (5-15) MEQ/L BUN 32 H (7-17) mg/dL Creatinine 1.03 (0.52-1.04) mg/dL Estimated GFR 56.8 ML/MIN Glucose 149 H (74-106) mg/dL Calcium 8.7 (8.4-10.2) mg/dL Slides for Path Review YES Radiology Exams: Radiology Procedures Category Date Time Status ECHO W/2D AND DOPPLER [US] Routine Exams 11/14/20 09:59 Taken Multi-Disciplinary Progress Notes: Multi-Disciplinary Progress Notes 11/15/20 11:00 Case Management Note by Janeth Francis NO CHANGE IN DC PLANS AT THIS TIME- WILL CONTINUE TO FOLLOW Initialized on 11/15/20 11:00 - END OF NOTE Assessment/Plan (1) COPD exacerbation Current Visit: Yes Status: Acute Assessment & Plan: Improved; start weaning down on steroids today and change to PO and likely d/c to home tomorrow. Code(s): J44.1 - CHRONIC OBSTRUCTIVE PULMONARY DISEASE W (ACUTE) EXACERBATION (2) Congestive heart failure Current Visit: Yes Status: Chronic Qualifiers: Heart failure type: diastolic Heart failure chronicity: chronic Qualified Code(s): I50.32 - Chronic diastolic (congestive) heart failure Code(s): I50.9 - HEART FAILURE, UNSPECIFIED (3) Muscular deconditioning Current Visit: Yes Status: Acute Code(s): R29.898 - OTH SYMPTOMS AND SIGNS INVOLVING THE MUSCULOSKELETAL SYSTEM (4) Dysphagia Current Visit: Yes Status: Acute Qualifiers: Dysphagia type: unspecified Qualified Code(s): R13.10 - Dysphagia, unspecified Assessment & Plan: EGD done yesterday; report not in chart as yet. Code(s): R13.10 - DYSPHAGIA, UNSPECIFIED
[2020-11-16] MEDS: DUONEB 0.5-3 MG/3 ml Neb IH SCH ×6 (03:06→22:39)
[2020-11-16] MEDS: Advair Hfa 115/21 Common canister IH SCH ×2 (07:01→18:57)
--- NOTE | 2020-11-16 08:22 | ECHO ---
DATE OF PROCEDURE: 11/14/2020 CLINICAL INFORMATION: Diastolic heart failure. The M-mode 2D, and Doppler echocardiogram including color flow Doppler shows the left ventricle is dilated with a dimension of 6.7 cm. There is no thrombus noted. The septal wall thickness is 1.0 cm. The left ventricular posterior wall thickness is 1.4 cm. There is normal contractility of the left ventricle. The ejection fraction is calculated to be 60%. The right ventricle is grossly normal. The left atrium is normal with a dimension of 3.3 cm. The interatrial septum is intact. The right atrium is normal. The aortic valve opens well. There is no aortic regurgitation present. There is mitral valve leaflet thickening associated with mild mitral regurgitation. There is mild tricuspid regurgitation. The right ventricular systolic pressure is calculated to be 20 mm of Mercury. The pulmonic valve is not well visualized. The aortic root is normal at 3.4 cm. There is a small pericardial effusion present. There is no cardiac tamponade. IMPRESSION: 1) SMALL PERICARDIAL EFFUSION. 2) NORMAL CONTRACTILITY OF THE LEFT VENTRICLE. 3) MILD MITRAL REGURGITATION. 4) MILD TRICUSPID REGURGITATION.
--- NOTE | 2020-11-16 08:47 | PCM.NOTE ---
Date and Time: 11/16/20 0837 Subjective Assessment: Pt is still feeling quite SOB. She is mary po. Objective Exam General Appearance: mild distress, alert Neurologic Exam: oriented x 3, cooperative Skin Exam: normal color Respiratory Exam: diminished breath sounds (poor air exchange), prolonged expirations, wheezing (throughout), other (dyspneic at rest with somewhat telegraphic speech), No crackles/rales, No rhonchi Cardiovascular Exam: regular rate/rhythm, normal heart sounds, No murmur Gastrointestinal/Abdomen Exam: soft, normal bowel sounds, No tenderness, No distention, No mass, No guarding, No rebound Extremity Exam: No pedal edema, No swelling OBJECTIVE DATA Vital Signs: Vital Signs - 24 hr Temp Pulse Resp BP Pulse Ox 11/16/20 07:57 98.0 F 58 L 18 120/75 95 11/16/20 07:01 63 18 93 L 11/16/20 04:00 97.7 F 62 18 121/88 94 L 11/16/20 03:06 61 20 95 11/16/20 00:00 97.7 F 65 22 117/72 97 11/15/20 22:51 66 18 94 L 11/15/20 20:00 97.7 F 74 16 125/72 95 11/15/20 19:11 68 16 95 11/15/20 16:00 97.4 F 63 16 127/73 97 11/15/20 15:37 60 18 96 11/15/20 12:00 98.1 F 72 16 118/75 97 11/15/20 11:36 71 18 95 Pain Assessment - Last Documented Pain Intensity 0 Intake and Output: Intake & Output 11/13/20 11/14/20 11/15/20 11/16/20 11:59 11:59 11:59 11:59 Intake Total 3011 3098 3259 2872 Output Total 3150 3800 1200 2700 Balance -139 702 2059 172 Weight 82.5 kg 83.06 kg 82.8 kg 89.5 kg Radiology Exams: Radiology Procedures Category Date Time Status ECHO W/2D AND DOPPLER [US] Routine Exams 11/14/20 09:59 Draft Multi-Disciplinary Progress Notes: Multi-Disciplinary Progress Notes 11/16/20 03:26 Respiratory Note by Amna Caldwell AN ORDER WAS WRITTEN PER R.T. PROTOCOL FOR A FLUTTER DEVICE. THE PT IS HAVING TROUBLE COUGHING UP SPUTU. Initialized on 11/16/20 03:26 - END OF NOTE 11/15/20 11:00 Case Management Note by Janeth Francis NO CHANGE IN DC PLANS AT THIS TIME- WILL CONTINUE TO FOLLOW Initialized on 11/15/20 11:00 - END OF NOTE Assessment/Plan (1) COPD exacerbation Current Visit: Yes Status: Acute Assessment & Plan: She is not improving today. Will increase the steroids again and add aminophylline. Code(s): J44.1 - CHRONIC OBSTRUCTIVE PULMONARY DISEASE W (ACUTE) EXACERBATION (2) Congestive heart failure Current Visit: Yes Status: Chronic Qualifiers: Heart failure type: diastolic Heart failure chronicity: chronic Qualified Code(s): I50.32 - Chronic diastolic (congestive) heart failure Code(s): I50.9 - HEART FAILURE, UNSPECIFIED (3) Muscular deconditioning Current Visit: Yes Status: Acute Code(s): R29.898 - OTH SYMPTOMS AND SIGNS INVOLVING THE MUSCULOSKELETAL SYSTEM (4) Dysphagia Current Visit: Yes Status: Acute Qualifiers: Dysphagia type: unspecified Qualified Code(s): R13.10 - Dysphagia, unspecified Code(s): R13.10 - DYSPHAGIA, UNSPECIFIED
[2020-11-16] MEDS: ROCEPHIN 1 Gm-D5w 50 ml Bag** 1 G/50 ML IVPB IV SCH (09:48)
[2020-11-16] MEDS: Catapres 0.1 MG PO SCH ×3 (09:50→22:22)
[2020-11-16] MEDS: Zestril 20 MG PO SCH (09:50)
[2020-11-16] MEDS: Cardizem CD 180 MG PO SCH ×2 (09:50→22:22)
[2020-11-16] MEDS: COREG 12.5 MG PO SCH ×2 (09:50→22:22)
[2020-11-16] MEDS: ZOCOR 20MG PO SCH (09:50)
[2020-11-16] MEDS: solu-MEDROL 125 MG IV SCH ×2 (09:54→17:08)
[2020-11-16] MEDS: Zithromax 500 MG/ 250 ML NaCl Premix 500 MG/250 ML IVPB IV SCH (09:55)
[2020-11-16] MEDS: Sodium Chloride 0.9% 1000 ML 1,000 ML IV SCH (10:16)
[2020-11-16] MEDS: THEOPHYLLINE ER 24HR PO SCH (10:27)
[2020-11-17] MEDS: solu-MEDROL 125 MG IV SCH ×3 (02:00→17:02)
[2020-11-17] MEDS: DUONEB 0.5-3 MG/3 ml Neb IH SCH ×4 (03:47→19:48)
[2020-11-17] MEDS: Advair Hfa 115/21 Common canister IH SCH ×2 (07:34→19:49)
[2020-11-17] MEDS: Sodium Chloride 0.9% 1000 ML 1,000 ML IV SCH (07:52)
--- NOTE | 2020-11-17 08:35 | PCM.NOTE ---
Date and Time: 11/17/20832 Subjective Assessment: patient still significantly short of breath and wheezing, she is tolerating po intake. has some toruble having conversation/speaking in full sentences. seems anxious Objective Exam General Appearance: no apparent distress, anxiety Neurologic Exam: alert, oriented x 3, cooperative Respiratory Exam: wheezing Cardiovascular Exam: regular rate/rhythm Gastrointestinal/Abdomen Exam: soft, No tenderness, No mass Extremity Exam: normal inspection, normal range of motion OBJECTIVE DATA Vital Signs: Vital Signs - 24 hr Temp Pulse Resp BP Pulse Ox 11/17/20 08:00 98.0 F 63 20 143/94 94 L 11/17/20 07:40 64 22 97 11/17/20 04:00 97.4 F 62 20 150/84 94 L 11/17/20 03:47 66 18 92 L 11/17/20 00:00 97.5 F 63 20 151/87 96 11/16/20 22:42 70 16 95 11/16/20 20:00 97.5 F 63 26 H 141/80 94 L 11/16/20 18:50 61 17 94 L 11/16/20 16:00 69 22 136/72 97 11/16/20 14:46 62 18 94 L 11/16/20 12:00 98.1 F 67 20 121/71 96 11/16/20 11:10 96 Pain Assessment - Last Documented Pain Intensity 0 Intake and Output: Intake & Output 11/14/20 11/15/20 11/16/20 11/17/20 11:59 11:59 11:59 11:59 Intake Total 3098 3259 3112 3405 Output Total 3800 1200 2700 1400 Balance -702 2059 412 2004 Weight 83.06 kg 82.8 kg 89.5 kg 86.3 kg Lab Results: Lab Results-Last 24 Hours 11/14/20 Range/Units 15:23 Surg PTH Diagnosis See Note H Multi-Disciplinary Progress Notes: Multi-Disciplinary Progress Notes 11/16/20 15:10 Physical Therapy Note by Sydney Herrmann PT. C/O INCREASED SOB TODAY. O2 SATS 92-94% AT REST ON 2L O2. PT. PERFORMING BED MOBILITY AND TRANSFERS MOD I. ASKED TO WAIT TO WALK UNTIL AFTER BREATHING RX THIS A.M. AFTER RX, PT. WALKED ~ 100' W/ 2 L O2 AND CGA. NOTED MORE LURCHING OF TRUNK TO THE R TODAY AND SLIGHTLY MORE USTEADINESS W/ GAIT TODAY. PT. REPORTS SHE DOES HAVE A ROLLER WALKER AT HOME BUT ADMITS THAT SHE PROBABLY WON'T USE IT UPON D/C HOME. O2 SATS 92% ON 2L O2 DURING WALK. PT. FATIGUED AFTER WALKING AND WANTED TO LIE BACK IN BED. WILL CONT. TO ENCOURAGE MOBILITY AND SITTING UP MORE OFTEN TO INCREASE ENDURANCE AND ALLOW FOR IMPROVED CARDIOPULMONARY FUNCTION. PT. WOULD BENEFIT [facility] PT UPON D/C. CONT P.T. TO ADDRESS INCREASING ENDURANCE AND FUNCTIONAL MOBILITY. SYDNEY HERRMANN, PT Initialized on 11/16/20 15:10 - END OF NOTE 11/16/20 11:32 Case Management Note by Janeth Francis NO CHANGE IN DC PLANS AT THIS TIME- WILL CONTINUE TO FOLLOW Initialized on 11/16/20 11:32 - END OF NOTE Assessment/Plan (1) Acute exacerbation of chronic obstructive pulmonary disease (COPD) Current Visit: No Status: Acute Assessment & Plan: continue IV abx and steroids at this time, on rocephin/zithromax and solumedrol 80mg IV q6 hrs, also on po theophylline Code(s): J44.1 - CHRONIC OBSTRUCTIVE PULMONARY DISEASE W (ACUTE) EXACERBATION (2) Congestive heart failure Current Visit: Yes Status: Chronic Qualifiers: Heart failure type: diastolic Heart failure chronicity: chronic Qualified Code(s): I50.32 - Chronic diastolic (congestive) heart failure Code(s): I50.9 - HEART FAILURE, UNSPECIFIED
[2020-11-17] MEDS: ZOCOR 20MG PO SCH (09:22)
[2020-11-17] MEDS: Catapres 0.1 MG PO SCH ×3 (09:22→21:50)
[2020-11-17] MEDS: Zithromax 500 MG/ 250 ML NaCl Premix 500 MG/250 ML IVPB IV SCH (09:22)
[2020-11-17] MEDS: Cardizem CD 180 MG PO SCH ×2 (09:22→21:50)
[2020-11-17] MEDS: Zestril 20 MG PO SCH (09:22)
[2020-11-17] MEDS: ROCEPHIN 1 Gm-D5w 50 ml Bag** 1 G/50 ML IVPB IV SCH (09:22)
[2020-11-17] MEDS: THEOPHYLLINE ER 24HR PO SCH (09:23)
[2020-11-17] MEDS: COREG 12.5 MG PO SCH ×2 (09:23→21:50)
[2020-11-17] MEDS: ULTRAM 50 MG PO PRN (21:50)
[2020-11-17] MEDS ORDERED: xanAX 0.25 MG PO ONE (22:03)
[2020-11-18] MEDS: DUONEB 0.5-3 MG/3 ml Neb IH SCH ×7 (00:12→22:18)
[2020-11-18] MEDS: solu-MEDROL 125 MG IV SCH ×3 (01:51→16:38)
[2020-11-18] MEDS: Advair Hfa 115/21 Common canister IH SCH ×2 (06:41→18:43)
--- NOTE | 2020-11-18 08:58 | PCM.NOTE ---
Date and Time: 11/18/20 08 Subjective Assessment: Pt still SOB, has a hard time eating much due to dyspnea. - Review of Systems Constitutional: No Fever Respiratory: Cough, Short Of Breath Objective Exam General Appearance: no apparent distress, alert Neurologic Exam: oriented x 3, cooperative Skin Exam: normal color, warm, dry, No rash Ears, Nose, Throat Exam: moist mucous membranes Respiratory Exam: diminished breath sounds (poor air exchange), prolonged expirations, wheezing (throughout), No crackles/rales, No rhonchi Cardiovascular Exam: regular rate/rhythm, normal heart sounds, No murmur Gastrointestinal/Abdomen Exam: soft, normal bowel sounds, No tenderness, No distention, No mass, No guarding, No rebound Extremity Exam: normal inspection, No pedal edema, No swelling Back Exam: normal inspection, No rash OBJECTIVE DATA Vital Signs: Vital Signs - 24 hr Temp Pulse Resp BP Pulse Ox 11/18/20 07:53 98.6 F 62 22 161/95 93 L 11/18/20 06:47 61 16 94 L 11/18/20 04:00 97.3 F 62 16 185/60 92 L 11/18/20 03:20 63 22 93 L 11/18/20 00:14 56 L 18 95 11/18/20 00:00 97.5 F 55 L 16 157/89 95 11/17/20 20:00 98.4 F 64 19 102/47 96 11/17/20 19:52 66 22 93 L 11/17/20 16:00 96.0 F 62 18 137/86 95 11/17/20 12:00 98.3 F 69 18 121/89 99 11/17/20 11:36 67 20 95 Oxygen-Last 24 hours Oxygen Flowrate (L/min)-RT 4 Oxygen Flowrate (L/min)-RT 3 Oxygen Flowrate (L/min)-RT 2 Pain Assessment - Last Documented Pain Intensity 0 Intake and Output: Intake & Output 11/15/20 11/16/20 11/17/20 11/18/20 11:59 11:59 11:59 11:59 Intake Total 3259 3112 3645 3341 Output Total 1200 2700 1400 1800 Balance 2051 932 0035 1541 Weight 82.8 kg 89.5 kg 86.3 kg 91.5 kg Multi-Disciplinary Progress Notes: Multi-Disciplinary Progress Notes 11/17/20 12:44 Physical Therapy Note by Talita Hogue Pt was seen this AM for Physical Therapy. Pt was seen lying in bed with an IV in the L UE and on 3L O2. She noted feeling "short winded" today. Her O2 sats were 95% upon arrival. She was able to transfer supine to sit and then sit to stand with SBA of 1. Pt was agreeable to a walk. She was able to ambulate 100' while holding onto the IV pole, on 3L O2, and with SBA/CGA of 1. She refuses to use a walker. In the middle of her walk she needed to sit and rest. She desaturated to 88%, but after a short rest, slow breathing and increasing her O2 to 4L, she recovered to 94%. Pt was able to ambulate back her her room. She then transfer red to the commode with SBA and back to bed with SBA. Pt noted feeling fatigued after her walk and laid back down. Talita Hogue, PT Initialized on 11/17/20 12:44 - END OF NOTE 11/17/20 10:27 Case Management Note by Janeth Francis S/W PATIENT ABOUT HHC SUGGESTION FROM PHYSICAL THERAPY- SHE DIDN'T THINK SHE REALLY NEEDED IT BUT WOULD CONSIDER IT. WILL CHECK BACK IN TOMORROW WITH PATIENT TO SEE WHAT SHE DECIDED. PATIENT WILL ALSO NEED HOME OXYGEN SET UP FOR TIME OF DC Initialized on 11/17/20 10:27 - END OF NOTE Assessment/Plan (1) COPD exacerbation Current Visit: Yes Status: Acute Assessment & Plan: Her improvement has been minimal. She is on IV steroids, 80mg q8h; also on rocephin and zithromax (but will d/c zithromax today as she has completed 6d). I added theophylline po two days ago. Will consult pt's wellness program manager, Dr. Whaley, today, thank you. Code(s): J44.1 - CHRONIC OBSTRUCTIVE PULMONARY DISEASE W (ACUTE) EXACERBATION (2) Congestive heart failure Current Visit: Yes Status: Chronic Qualifiers: Heart failure type: diastolic Heart failure chronicity: chronic Qualified Code(s): I50.32 - Chronic diastolic (congestive) heart failure Code(s): I50.9 - HEART FAILURE, UNSPECIFIED (3) Muscular deconditioning Current Visit: Yes Status: Acute Assessment & Plan: Will need HHC for PT upon discharge. Code(s): R29.898 - OTH SYMPTOMS AND SIGNS INVOLVING THE MUSCULOSKELETAL SYSTEM (4) Dysphagia Current Visit: Yes Status: Resolved Qualifiers: Dysphagia type: unspecified Qualified Code(s): R13.10 - Dysphagia, unspecified Assessment & Plan: EGD was done by surgery, thank you. Code(s): R13.10 - DYSPHAGIA, UNSPECIFIED
[2020-11-18] MEDS: Sodium Chloride 0.9% 1000 ML 1,000 ML IV SCH (09:49)
[2020-11-18] MEDS: Catapres 0.1 MG PO SCH ×3 (09:51→22:13)
[2020-11-18] MEDS: ZOCOR 20MG PO SCH (09:51)
[2020-11-18] MEDS: Zestril 20 MG PO SCH (09:51)
[2020-11-18] MEDS: Cardizem CD 180 MG PO SCH ×2 (09:52→22:13)
[2020-11-18] MEDS: ROCEPHIN 1 Gm-D5w 50 ml Bag** 1 G/50 ML IVPB IV SCH (09:52)
[2020-11-18] MEDS: THEOPHYLLINE ER 24HR PO SCH (09:53)
[2020-11-18] MEDS: Coreg 6.25 MG PO SCH ×2 (11:15→22:14)
[2020-11-18] MEDS: Zithromax 500 MG/ 250 ML NaCl Premix 500 MG/250 ML IVPB IV SCH (11:15)
[2020-11-19] MEDS: solu-MEDROL 125 MG IV SCH ×4 (00:48→22:11)
[2020-11-19] MEDS: DUONEB 0.5-3 MG/3 ml Neb IH SCH ×6 (02:45→23:20)
[2020-11-19] MEDS: Advair Hfa 115/21 Common canister IH SCH ×2 (06:53→18:58)
[2020-11-19] MEDS: Zestril 20 MG PO SCH (09:19)
[2020-11-19] MEDS: ROCEPHIN 1 Gm-D5w 50 ml Bag** 1 G/50 ML IVPB IV SCH (09:19)
[2020-11-19] MEDS: ZOCOR 20MG PO SCH (09:20)
[2020-11-19] MEDS: Catapres 0.1 MG PO SCH ×3 (09:20→22:12)
[2020-11-19] MEDS: Coreg 6.25 MG PO SCH ×2 (09:20→22:12)
[2020-11-19] MEDS: THEOPHYLLINE ER 24HR PO SCH (09:23)
[2020-11-19] MEDS: Cardizem CD 180 MG PO SCH ×2 (09:30→22:12)
[2020-11-19] MEDS: Zithromax 500 MG/ 250 ML NaCl Premix 500 MG/250 ML IVPB IV SCH (10:10)
[2020-11-19] MEDS ORDERED: xanAX 0.25 MG PO PRN ×2 (10:28)
[2020-11-19 10:52] LABS: NT PRO BNP 2690 pg/mL (0-900)
[2020-11-19] MEDS ORDERED: Lasix 40 MG/4 ML IV SCH (11:00)
[2020-11-19] MEDS: Sodium Chloride 0.9% 1000 ML 1,000 ML IV SCH (15:14)
[2020-11-20] MEDS: DUONEB 0.5-3 MG/3 ml Neb IH SCH ×6 (03:33→23:35)
[2020-11-20] MEDS: solu-MEDROL 125 MG IV SCH ×4 (03:38→20:28)
[2020-11-20] MEDS: Sodium Chloride 0.9% 1000 ML 1,000 ML IV SCH (06:29)
[2020-11-20 06:30] LABS: Absolute Neutrophil Ct (ANC) 10.11 (1.4-6.9); Basophil (Absolute #) 0 (0-0.4); Eosinophil (Absolute #) 0 (0-0.5); Hematocrit 37.6 % (35-47); Lymphocyte (Absolute #) 0.22 (1.0-4.6); Lymphocytes % 2.1 % (24.0-44.0); Mean Cell Volume 87.4 fl (78-100); Mean Corpuscular Hemoglobin 27.9 pg (26-32); Mean Corpuscular Hgb Concent. 31.9 g/dl (32-36); Mean Platelet Volume 10.5 fl (7.5-11.0); Monocyte (Absolute #) 0.25 (0.0-1.3); Monocytes % 2.4 % (0.0-12.0); Neutrophil % 95.5 % (36.0-66.0); Platelet Count 232 K/mm3 (150-450); White Blood Count 10.6 K/mm3 (4.0-10.5)
[2020-11-20 06:45] LABS: ALBUMIN 3.2 g/dL (3.5-5.0); ALKALINE PHOSPHATASE 67 U/L (38-126); ANION GAP 8.6 MEQ/L (5-15); BLOOD UREA NITROGEN 30 mg/dL (7-17); CHLORIDE 96 mmol/L (98-107); Calcium 8.3 mg/dL (8.4-10.2); Carbon Dioxide 31 mmol/L (22-30); Creatinine 1 0.84 mg/dL (0.52-1.04); EST GLOMERULAR FILTRATION RATE > 60.0 ML/MIN; Glucose 191 mg/dL (74-106); Potassium 3.4 mmol/L (3.5-5.1); SGOT/AST 19 U/L (14-36); SGPT/ALT 30 U/L (0-35); SODIUM 131 mmol/L (137-145); Total Protein 5.6 g/dL (6.3-8.2)
[2020-11-20] MEDS: Advair Hfa 115/21 Common canister IH SCH ×2 (06:50→19:03)
[2020-11-20 07:19] LABS: Slide Review 1 YES
[2020-11-20] MEDS: ZOCOR 20MG PO SCH (09:14)
[2020-11-20] MEDS: Cardizem CD 180 MG PO SCH ×2 (09:14→21:10)
[2020-11-20] MEDS: Coreg 6.25 MG PO SCH ×2 (09:14→21:10)
[2020-11-20] MEDS: Zestril 20 MG PO SCH (09:14)
[2020-11-20] MEDS: THEOPHYLLINE ER 24HR PO SCH (09:15)
[2020-11-20] MEDS: ROCEPHIN 1 Gm-D5w 50 ml Bag** 1 G/50 ML IVPB IV SCH (09:16)
[2020-11-20] MEDS: Catapres 0.1 MG PO SCH ×3 (09:27→21:10)
[2020-11-20] MEDS: Merrem 1 GM 1 G in Sodium Chloride 100ML MINI-BAG PLUS 100 ML IV SCH ×2 (10:05→17:23)
[2020-11-21] MEDS: Merrem 1 GM 1 G in Sodium Chloride 100ML MINI-BAG PLUS 100 ML IV SCH (02:40)
[2020-11-21] MEDS: Sodium Chloride 0.9% 1000 ML 1,000 ML IV SCH (02:40)
[2020-11-21] MEDS: solu-MEDROL 125 MG IV SCH ×4 (02:40→20:16)
[2020-11-21] MEDS: DUONEB 0.5-3 MG/3 ml Neb IH SCH ×6 (03:00→22:41)
[2020-11-21 06:20] LABS: Hematocrit 38.3 % (35-47); Hemoglobin 12.2 gm/dl (12.0-16.0); Mean Cell Volume 86.8 fl (78-100); Mean Corpuscular Hemoglobin 27.7 pg (26-32); Mean Corpuscular Hgb Concent. 31.9 g/dl (32-36); Platelet Count 197 K/mm3 (150-450); Red Blood Count 4.41 M/mm3 (4.1-5.4); White Blood Count 13.5 K/mm3 (4.0-10.5)
[2020-11-21] MEDS: Advair Hfa 115/21 Common canister IH SCH ×2 (06:45→18:29)
[2020-11-21 07:48] LABS: BAND 4 % (0.0-2.0); Lymphocytes 2 % (24-44); Monocyte 2 % (0.0-12.0); Neutrophils 92 % (36.0-66.0); Platelet Estimate NORMAL (NORMAL); Total Cells Counted 100
[2020-11-21 07:49] LABS: Toxic Granulation 1+
--- NOTE | 2020-11-21 08:46 | PCM.NOTE ---
Date and Time: 11/21/20 0842 Subjective Assessment: Pt is breathing somewhat better. Still SOB and feeling swollen throughout her body. Alejandro po. - Review of Systems Constitutional: No Fever Respiratory: Cough, Short Of Breath Objective Exam General Appearance: no apparent distress, alert Neurologic Exam: oriented x 3, cooperative Skin Exam: normal color, warm, dry, No rash Ears, Nose, Throat Exam: moist mucous membranes Neck Exam: normal inspection Respiratory Exam: diminished breath sounds (fair air exchange), wheezing (s cattered throughout; expiratory), other (mild tachypnea and dyspnea at rest. No telegraphic speech), No crackles/rales, No rhonchi Cardiovascular Exam: regular rate/rhythm, normal heart sounds, No murmur Extremity Exam: No pedal edema, No swelling Back Exam: normal inspection, No rash OBJECTIVE DATA Vital Signs: Vital Signs - 24 hr Temp Pulse Resp BP Pulse Ox 11/21/20 08:00 98.2 F 62 18 172/96 91 L 11/21/20 07:05 62 18 91 L 11/21/20 04:07 64 18 93 L 11/21/20 04:00 97.9 F 64 20 143/82 93 L 11/21/20 00:00 97.7 F 62 22 126/87 93 L 11/20/20 23:36 61 20 93 L 11/20/20 20:00 97.7 F 62 16 129/57 93 L 11/20/20 19:09 63 12 95 11/20/20 16:00 97.9 F 74 24 158/81 93 L 11/20/20 14:58 74 18 93 L 11/20/20 13:57 97.6 F 63 22 143/72 95 11/20/20 11:24 66 18 96 Pain Assessment - Last Documented Pain Intensity 0 Intake and Output: Intake & Output 11/18/20 11/19/20 11/20/20 11/21/20 11:59 11:59 11:59 11:59 Intake Total 3341 3232 3485 2756 Output Total 1800 1100 5700 1500 Balance 1541 2132 -2215 1256 Weight 91.5 kg 93 kg 96.2 kg Lab Results: Lab Results-Last 24 Hours 11/21/20 11/21/20 Range/Units 04:50 05:50 WBC 13.5 H (4.0-10.5) K/mm3 RBC 4.41 (4.1-5.4) M/mm3 Hgb 12.2 (12.0-16.0) gm/dl Hct 38.3 (35-47) % MCV 86.8 (78-100) fl MCH 27.7 (26-32) pg MCHC 31.9 L (32-36) g/dl RDW 13.0 (11.5-14.0) % Plt Count 197 (150-450) K/mm3 MPV 11.0 (7.5-11.0) fl Segmented Neutrophils 92 H (36.0-66.0) % Band Neutrophils 4 H (0.0-2.0) % Lymphocytes (Manual) 2 L (24-44) % Monocytes (Manual) 2 (0.0-12.0) % Toxic Granulation 1+ Platelet Estimate NORMAL (NORMAL) RBC Morphology NORMAL Procalcitonin < 0.030 L (0.030-0.080) ng/mL Radiology Exams: Radiology Procedures Category Date Time Status CHEST 2 VIEWS (PA AND LAT) Routine Exams 11/21/20 Ordered Assessment/Plan (1) COPD exacerbation Current Visit: Yes Status: Acute Assessment & Plan: Only mild improvement with IV steroids, so will still be here several days, likely. Her procalcitonin levels have been neg x 2, so I spoke with pharmacy and am de- escalating her antibiotics (d/c merrem and start ceftin po). Will continue the steroids at 125mg IV q6h. Code(s): J44.1 - CHRONIC OBSTRUCTIVE PULMONARY DISEASE W (ACUTE) EXACERBATION (2) Congestive heart failure Current Visit: Yes Status: Acute Qualifiers: Heart failure type: diastolic Heart failure chronicity: chronic Qualified Code(s): I50.32 - Chronic diastolic (congestive) heart failure Assessment & Plan: She did get some relief with lasix; will start 80mg IV daily and check BMP daily. Code(s): I50.9 - HEART FAILURE, UNSPECIFIED (3) Muscular deconditioning Current Visit: Yes Status: Acute Assessment & Plan: PT consulted. Code(s): R29.898 - OTH SYMPTOMS AND SIGNS INVOLVING THE MUSCULOSKELETAL SYSTEM (4) Dysphagia Current Visit: Yes Status: Resolved Qualifiers: Dysphagia type: unspecified Qualified Code(s): R13.10 - Dysphagia, unspecified Code(s): R13.10 - DYSPHAGIA, UNSPECIFIED (5) Chronic hypoxemic respiratory failure Current Visit: Yes Status: Chronic Assessment & Plan: Will go home on O2 when she is ready.
[2020-11-21 09:16] LABS: ANION GAP 7.6 MEQ/L (5-15); BLOOD UREA NITROGEN 25 mg/dL (7-17); CHLORIDE 98 mmol/L (98-107); Calcium 8.5 mg/dL (8.4-10.2); Carbon Dioxide 30 mmol/L (22-30); Creatinine 1 0.68 mg/dL (0.52-1.04); EST GLOMERULAR FILTRATION RATE > 60.0 ML/MIN; Glucose 153 mg/dL (74-106); Potassium 3.5 mmol/L (3.5-5.1); SODIUM 132 mmol/L (137-145)
--- NOTE | 2020-11-21 10:31 | XRAY ---
Indication: Dyspnea on exertion. COPD/emphysema. Comparison: November 12, 2020. PA/lateral chest improved with diminished cardiomegaly and moderately decreased bilateral effusions with small residual bilaterally. No new cardiopulmonary abnormalities.
[2020-11-21] MEDS: ZOCOR 20MG PO SCH (10:36)
[2020-11-21] MEDS: Cardizem CD 180 MG PO SCH ×2 (10:37→20:17)
[2020-11-21] MEDS: Catapres 0.1 MG PO SCH ×3 (10:37→20:17)
[2020-11-21] MEDS: Zestril 20 MG PO SCH (10:38)
[2020-11-21] MEDS: THEOPHYLLINE ER 24HR PO SCH (10:39)
[2020-11-21] MEDS: Coreg 6.25 MG PO SCH ×2 (10:42→20:17)
[2020-11-21] MEDS: Furosemide 100mg/10 ml Vial IV SCH (11:10)
[2020-11-21] MEDS: CEFTIN 500 MG PO SCH ×2 (11:10→20:17)
[2020-11-21] MEDS: Miralax Powder 17GM PACKET PO SCH (17:26)
[2020-11-21] MEDS: Aminophylline 500 MG/20 ML*** 500 MG in Sodium Chloride 0.9% 500 ML 480 ML IV SCH (17:53)
[2020-11-22] MEDS: Colace 100 MG PO SCH ×3 (01:36→21:42)
[2020-11-22] MEDS: solu-MEDROL 125 MG IV SCH ×4 (02:13→21:41)
[2020-11-22] MEDS: DUONEB 0.5-3 MG/3 ml Neb IH SCH ×6 (03:05→23:53)
[2020-11-22 05:52] LABS: ANION GAP 5.7 MEQ/L (5-15); BLOOD UREA NITROGEN 22 mg/dL (7-17); CHLORIDE 91 mmol/L (98-107); Calcium 8.3 mg/dL (8.4-10.2); Carbon Dioxide 37 mmol/L (22-30); Creatinine 1 0.75 mg/dL (0.52-1.04); EST GLOMERULAR FILTRATION RATE > 60.0 ML/MIN; Glucose 189 mg/dL (74-106); SODIUM 130 mmol/L (137-145)
[2020-11-22 06:00] LABS: Potassium 2.7 mmol/L (3.5-5.1)
[2020-11-22] MEDS: POTASSIUM CHLORIDE 20 mEq IN WATER 100ML 20 MEQ/100 ML BAG IV SCH ×2 (06:34→08:36)
[2020-11-22] MEDS: Advair Hfa 115/21 Common canister IH SCH ×2 (06:46→19:46)
[2020-11-22] MEDS: Furosemide 100mg/10 ml Vial IV SCH (08:36)
[2020-11-22] MEDS: Catapres 0.1 MG PO SCH ×3 (08:37→21:42)
[2020-11-22] MEDS: CEFTIN 500 MG PO SCH ×2 (08:37→21:43)
[2020-11-22] MEDS: Zestril 20 MG PO SCH (08:37)
[2020-11-22] MEDS: Cardizem CD 180 MG PO SCH ×2 (08:37→21:43)
[2020-11-22] MEDS: ZOCOR 20MG PO SCH (08:37)
[2020-11-22] MEDS: Coreg 6.25 MG PO SCH ×2 (08:38→21:43)
--- NOTE | 2020-11-22 08:49 | PCM.NOTE ---
Date and Time: 11/22/20 0844 Subjective Assessment: She is breathing somewhat better. Alejandro po fine, just has to eat slowly "so I can breathe and eat at the same time." - Review of Systems Constitutional: No Fever Respiratory: Cough, Short Of Breath Objective Exam General Appearance: no apparent distress, alert Neurologic Exam: oriented x 3, cooperative Skin Exam: normal color, warm, dry, No rash Eye Exam: eyes nml inspection Ears, Nose, Throat Exam: moist mucous membranes Respiratory Exam: diminished breath sounds (fair air exchange), wheezing (throughout, expiratory), No crackles/rales, No rhonchi Cardiovascular Exam: regular rate/rhythm, normal heart sounds, No murmur Extremity Exam: normal inspection, No pedal edema, No swelling Back Exam: normal inspection, No rash OBJECTIVE DATA Vital Signs: Vital Signs - 24 hr Temp Pulse Resp BP Pulse Ox 11/22/20 07:41 98.1 F 59 L 16 168/75 92 L 11/22/20 06:48 56 L 18 95 11/22/20 06:45 56 L 18 95 11/22/20 04:00 98.2 F 58 L 16 147/74 93 L 11/22/20 03:05 58 L 15 92 L 11/21/20 23:57 98.2 F 54 L 17 165/91 93 L 11/21/20 22:45 55 L 16 93 L 11/21/20 20:00 98.1 F 61 16 134/77 94 L 11/21/20 18:32 60 16 94 L 11/21/20 16:00 98.3 F 55 L 18 171/73 90 L 11/21/20 14:41 68 18 94 L 11/21/20 12:00 98.1 F 63 20 169/94 91 L 11/21/20 10:53 68 24 94 L Pain Assessment - Last Documented Pain Intensity 0 Intake and Output: Intake & Output 11/19/20 11/20/20 11/21/20 11/22/20 11:59 11:59 11:59 11:59 Intake Total 3232 3485 3236 2965 Output Total 1100 5700 1500 1200 Balance 2132 -2215 1736 1765 Weight 93 kg 96.2 kg 98.3 kg Lab Results: Lab Results-Last 24 Hours 11/21/20 11/22/20 11/22/20 Range/Units 08:37 04:40 04:40 Sodium 132 L 130 L (137-145) mmol/L Potassium 3.5 2.7 L* D (3.5-5.1) mmol/L Chloride 98 91 L (98-107) mmol/L Carbon Dioxide 30 37 H (22-30) mmol/L Anion Gap 7.6 5.7 (5-15) MEQ/L BUN 25 H 22 H (7-17) mg/dL Creatinine 0.68 0.75 (0.52-1.04) mg/dL Estimated GFR > 60.0 > 60.0 ML/MIN Glucose 153 H 189 H (74-106) mg/dL Calcium 8.5 8.3 L (8.4-10.2) mg/dL Theophylline 10.0 (10-20) ug/mL Radiology Exams: Radiology Procedures Category Date Time Status CHEST 2 VIEWS (PA AND LAT) Routine Exams 11/21/20 09:52 Completed Multi-Disciplinary Progress Notes: Multi-Disciplinary Progress Notes 11/21/20 15:57 Case Management Note by Riri Moe NO CHANGE IN DISCHARGE PLAN, DENIES ADDNL NEEDS AT PRESENT. INDEPENDENT WITH ALL ADL'S. Initialized on 11/21/20 15:57 - END OF NOTE 11/21/20 14:55 Physical Therapy Note by Sydney Herrmann PT SEEN THIS PM BY P.T. REPORTS SHE IS FEELING A LITTLE LESS SOB. STILL ON 3L O2. PT. PERFORMED SUPINE TO SIT AND SIT TO STAND MOD I. TRANSFERRED TO BEDSIDE COMMODE W/ SBA. BEFORE WALKING OUT OF ROOM O2 SATS WERE 88% ON 3 L O2. PT. TENDS TO TALK WHILE MOVING AND REQUIRES FREQUENT V.C. TO BREATHE W/ PROPER PATTERN. PT. WALKED ~ 50' WITHOUT A.D. BUT HOLDING ON TO IV POLE W/ CGA-SBA AND 02 SATS 89-93%; DID INCREASE O2 TO 4L DURING WALK. ABLE TO PLACE BACK ON 3L UPON RETURN TO ROOM W/ O2 SATS 94% AFTER RESTING. WILL CONT. PT TO INCREASE ENDURANCE AND STRENGTH TOLERATED. SYDNEY HERRMANN PT Initialized on 11/21/20 14:55 - END OF NOTE Assessment/Plan (1) COPD exacerbation Current Visit: Yes Status: Acute Assessment & Plan: Pt was seen by Dr. Whaley yesterday, thank you! He added IV aminophylline. She is better today but still quite short of breath. I anticipate she will be on the aminophylline for several days. Code(s): J44.1 - CHRONIC OBSTRUCTIVE PULMONARY DISEASE W (ACUTE) EXACERBATION (2) Congestive heart failure Current Visit: Yes Status: Acute Qualifiers: Heart failure type: diastolic Heart failure chronicity: chronic Qualified Code(s): I50.32 - Chronic diastolic (congestive) heart failure Assessment & Plan: Lasix given yesterday with some clearing of CXR. Will leave her on this for now. Code(s): I50.9 - HEART FAILURE, UNSPECIFIED (3) Muscular deconditioning Current Visit: Yes Status: Acute Code(s): R29.898 - OTH SYMPTOMS AND SIGNS INVOLVING THE MUSCULOSKELETAL SYSTEM (4) Hypokalemia Current Visit: Yes Status: Acute Assessment & Plan: Will add po potassium while pt is on lasix. Code(s): E87.6 - HYPOKALEMIA (5) Dysphagia Current Visit: Yes Status: Resolved Qualifiers: Dysphagia type: unspecified Qualified Code(s): R13.10 - Dysphagia, unspec ified Code(s): R13.10 - DYSPHAGIA, UNSPECIFIED (6) Chronic hypoxemic respiratory failure Current Visit: Yes Status: Chronic
[2020-11-22] MEDS ORDERED: THEOPHYLLINE ER 24HR PO SCH (10:00)
[2020-11-22] MEDS: Klor Con 10 MEQ PO SCH ×2 (12:18→21:42)
[2020-11-22] MEDS: Miralax Powder 17GM PACKET PO SCH (12:19)
--- NOTE | 2020-11-22 12:44 | CONS ---
Events noted. Chart reviewed. CONSULT DATE: 11/21/2020 REASON FOR CONSULT: Continued shortness of breath, wheezing. HISTORY: Vi Pedraza is a 65 year old woman with history of chronic obstructive pulmonary disease, known to me and was seen in the office with complaints of bronchitis. The patient was prescribed antibiotic. The symptoms have progressively worsened leading to an emergency room visit and subsequent hospitalization. She has been hospitalized for the last nine to ten days. She initially was noted of having chronic obstructive pulmonary disease exacerbation. In addition, a CT chest revealed cardiomegaly with bilateral pleural effusion. She also had elevated BNP and had received antibiotics along with diuretic therapy. The patient also reported that she had dysphagia and underwent EGD by Dr. Peterson with esophageal dilatation. The patient's steroids were gradually tapered. However the decreased saturation symptoms progressively worsened with significant breathing problems leading to rebound increase in IV steroid dose. At the time of my evaluation the patient is still noted to have audible wheezing. She does have cough which is minimally productive. She appears weak but voices no complaints. Unfortunately, she has been a smoker until this admission. PAST MEDICAL HISTORY: Positive for history of chronic obstructive pulmonary disease, hypertension, dyslipidemia, arthritis. PAST SURGICAL HISTORY: No recent surgery other than esophageal dilatation. MEDICATIONS: Home and current medications are reviewed. ALLERGIES: NKDA. PHYSICAL EXAMINATION: This is an elderly woman who appears mildly tachypneic. Vital signs noted. HEENT: Normocephalic. Oral exam limited. Edentulous. NECK: Supple. CVS: First and second heart sounds are normal, regular, rhythmic. RESPIRATORY: Shows diminished breath sounds bilateral, fairly diffuse rhonchi are heard. ABDOMEN: Soft. EXTREMITIES: No significant edema is noted. LABORATORY DATA AND TESTS: Sodium 132, potassium 3.5, chloride 98, bicarb 30, BUN 27, creatinine 0.6. White count 13.5, hemoglobin 12.2, hematocrit 38, PLT 197,000. Radiology tests reviewed. ASSESSMENT: This is a 65 year old woman admitted with: 1) Shortness of breath which clearly appears to be a combination of chronic obstructive pulmonary disease exacerbation along with mild volume overload. 2) Recurrent bronchitis. Antibiotics have been appropriately changed by Dr. Hernandez. 3) Bilateral pleural effusion and cardiomegaly with elevated BNP. The patient is being cautiously diuresed. 4) Dysphagia status post dilatation. 5) Nicotine addiction. RECOMMENDATIONS: 1) The patient is on oral theophylline although it is suboptimal level. I believe she may benefit from IV theophylline without loading dose for 48 hours. 2) Continue steroids with gradual taper. 3) Continue bronchodilator. 4) Cautious diuresis. 5) I agree with antibiotic changes. I will follow in 48 hours or earlier if needed. I explained this plan of care to patient and discussed with nursing staff as well. I will be available if any questions remained unanswered. Thank you for allowing me to participate in the care of Vi Pedraza.
[2020-11-22] MEDS ORDERED: K-LYTE 25 MEQ PO ONE (13:22)
[2020-11-22] MEDS: Sodium Chloride 0.9% 1000 ML 1,000 ML IV SCH (14:56)
[2020-11-22] MEDS: Aminophylline 500 MG/20 ML*** 500 MG in Sodium Chloride 0.9% 500 ML 480 ML IV SCH (19:46)
[2020-11-22] MEDS: Apresoline 25 MG TABLET PO PRN (21:41)
[2020-11-22] MEDS: ULTRAM 50 MG PO PRN (21:51)
[2020-11-23] MEDS: DUONEB 0.5-3 MG/3 ml Neb IH SCH ×6 (03:59→23:16)
[2020-11-23 05:36] LABS: BLOOD UREA NITROGEN 20 mg/dL (7-17); CHLORIDE 87 mmol/L (98-107); Calcium 8.4 mg/dL (8.4-10.2); Carbon Dioxide 37 mmol/L (22-30); Creatinine 1 0.74 mg/dL (0.52-1.04); EST GLOMERULAR FILTRATION RATE > 60.0 ML/MIN; Glucose 239 mg/dL (74-106); SODIUM 128 mmol/L (137-145)
[2020-11-23 05:41] LABS: Potassium 2.9 mmol/L (3.5-5.1)
[2020-11-23] MEDS: Advair Hfa 115/21 Common canister IH SCH ×2 (06:37→19:36)
[2020-11-23] MEDS: POTASSIUM CHLORIDE 20 mEq IN WATER 100ML 20 MEQ/100 ML BAG IV SCH ×2 (08:05→10:05)
[2020-11-23] MEDS: solu-MEDROL 125 MG IV SCH ×4 (08:08→22:16)
--- NOTE | 2020-11-23 08:54 | PCM.NOTE ---
Date and Time: 11/23/20851 Subjective Assessment: Pt is breathing "about the same." Tolerating po. Had heartburn last night which resolved with TUMS. - Review of Systems Constitutional: No Fever Respiratory: Short Of Breath Objective Exam General Appearance: no apparent distress, alert Neurologic Exam: oriented x 3, cooperative Skin Exam: normal color, warm, dry, No rash Neck Exam: normal inspection Respiratory Exam: diminished breath sounds (fair air exchange), prolonged expirations, other (able to speak in long, complete sentences), No crackle s/rales, No rhonchi, No wheezing Cardiovascular Exam: normal heart sounds, irregular, No murmur Extremity Exam: No pedal edema, No swelling Back Exam: normal inspection, No rash OBJECTIVE DATA Vital Signs: Vital Signs - 24 hr Temp Pulse Resp BP Pulse Ox 11/23/20 07:25 97.7 F 55 L 19 151/84 92 L 11/23/20 06:40 61 16 92 L 11/23/20 04:00 98.1 F 62 15 138/74 91 L 11/23/20 03:59 55 L 16 91 L 11/23/20 00:00 97.6 F 63 16 154/86 92 L 11/22/20 23:55 63 16 92 L 11/22/20 20:00 97.7 F 57 L 17 153/75 93 L 11/22/20 19:47 58 L 17 93 L 11/22/20 16:00 98.1 F 56 L 16 162/77 94 L 11/22/20 15:26 64 16 90 L 11/22/20 11:55 97.6 F 57 L 16 130/60 93 L 11/22/20 11:26 61 20 94 L Pain Assessment - Last Documented Pain Intensity 0 Intake and Output: Intake & Output 11/20/20 11/21/20 11/22/20 11/23/20 11:59 11:59 11:59 11:59 Intake Total 3485 3236 3745 3345 Output Total 5700 1500 1500 1975 Balance -2215 1736 2245 1370 Weight 93 kg 96.2 kg 98.3 kg Lab Results: Lab Results-Last 24 Hours 11/22/20 11/22/20 11/22/20 Range/Units 12:46 12:46 16:50 Sodium (137-145) mmol/L Potassium 2.7 L* 3.3 L D (3.5-5.1) mmol/L Chloride (98-107) mmol/L Carbon Dioxide (22-30) mmol/L Anion Gap (5-15) MEQ/L BUN (7-17) mg/dL Creatinine (0.52-1.04) mg/dL Estimated GFR ML/MIN Glucose (74-106) mg/dL Calcium (8.4-10.2) mg/dL Magnesium 2.1 (1.6-2.3) mg/dL Theophylline (10-20) ug/mL 11/23/20 11/23/20 Range/Units 04:28 04:28 Sodium 128 L (137-145) mmol/L Potassium 2.9 L* (3.5-5.1) mmol/L Chloride 87 L (98-107) mmol/L Carbon Dioxide 37 H (22-30) mmol/L Anion Gap 7.0 (5-15) MEQ/L BUN 20 H (7-17) mg/dL Creatinine 0.74 (0.52-1.04) mg/dL Estimated GFR > 60.0 ML/MIN Glucose 239 H (74-106) mg/dL Calcium 8.4 (8.4-10.2) mg/dL Magnesium (1.6-2.3) mg/dL Theophylline 9.4 L (10-20) ug/mL Radiology Exams: Radiology Procedures Category Date Time Status CHEST 2 VIEWS (PA AND LAT) Routine Exams 11/21/20 09:52 Completed Multi-Disciplinary Progress Notes: Multi-Disciplinary Progress Notes 11/22/20 21:13 Physical Therapy Note by Sydney Ramirez PT. SEEN BY P.T. THIS A.M. REPORTS SLIGHT IMPROVEMENT IN BREATHING W/ MED CHANGE BY DR. WHALEY. PT. IN BED UPON P.T. ARRIVAL TO ROOM. IV IN PLACE AND CONT. W/ 3 L O2. PERFORMING BED MOBILITY AND TRANSFERS MOD I. PT. AMBULATED ~ 60' ON 4 L O2 W/ O2 SATS ~90%. REQUIRED 1 REST BREAK WHILE STANDING TO BREATHE PROPERLY. PT'S GAIT WAS MORE STEADY TODAY. CONT. TO REPORT SHE WILL NOT USE WALKER AT HOME UPON D/C BUT DOES OWN ONE. PT. PERFORMED SEATED LE EX'S X 10-15 REPS OF SHAN LESTER, ANKLE DF/PF. WILL CONT. PT TO PROGRESS ENDURANCE AND PROMOTE PROPER BREATHING TECHNIQUE. SYDNEY RAMIREZ, PT Initialized on 11/22/20 21:13 - END OF NOTE 11/22/20 10:55 Case Management Note by Janeth Francis NO CHANGE IN DC PLANS AT THIS TIME- WILL CONTINUE TO FOLLOW Initialized on 11/22/20 10:55 - END OF NOTE Assessment/Plan (1) COPD exacerbation Current Visit: Yes Status: Acute Assessment & Plan: Currently on aminophylline drip; scheduled to run out at 6 pm this evening. Appreciate consult with Dr. Whaley; anticipate he will see the pt again today, thank you! Code(s): J44.1 - CHRONIC OBSTRUCTIVE PULMONARY DISEASE W (ACUTE) EXACERBATION (2) Congestive heart failure Current Visit: Yes Status: Acute Qualifiers: Heart failure type: diastolic Heart failure chronicity: chronic Qualified Code(s): I50.32 - Chronic diastolic (congestive) heart failure Assessment & Plan: Changing IV lasix 80mg to 40mg po daily. Code(s): I50.9 - HEART FAILURE, UNSPECIFIED (3) Muscular deconditioning Current Visit: Yes Status: Acute Code(s): R29.898 - OTH SYMPTOMS AND SIGNS INVOLVING THE MUSCULOSKELETAL SYSTEM (4) Hypokalemia Current Visit: Yes Status: Acute Code(s): E87.6 - HYPOKALEMIA (5) Dysphagia Current Visit: Yes Status: Resolved Qualifiers: Dysphagia type: unspecified Qualified Code(s): R13.10 - Dysphagia, unspecified Code(s): R13.10 - DYSPHAGIA, UNSPECIFIED (6) Chronic hypoxemic respiratory failure Current Visit: Yes Status: Chronic
[2020-11-23] MEDS: Sodium Chloride 0.9% 1000 ML 1,000 ML IV SCH (10:05)
[2020-11-23] MEDS: Catapres 0.1 MG PO SCH ×3 (10:07→22:16)
[2020-11-23] MEDS: Zestril 20 MG PO SCH (10:07)
[2020-11-23] MEDS: Cardizem CD 180 MG PO SCH ×2 (10:07→22:16)
[2020-11-23] MEDS: Colace 100 MG PO SCH ×2 (10:07→22:17)
[2020-11-23] MEDS: Lasix 40 MG PO SCH (10:07)
[2020-11-23] MEDS: ZOCOR 20MG PO SCH (10:07)
[2020-11-23] MEDS: Klor Con 10 MEQ PO SCH ×2 (10:07→22:17)
[2020-11-23] MEDS: Coreg 6.25 MG PO SCH ×2 (10:08→22:17)
[2020-11-23] MEDS: CEFTIN 500 MG PO SCH ×2 (10:08→22:17)
[2020-11-23] MEDS: Miralax Powder 17GM PACKET PO SCH (10:12)
[2020-11-23 16:00] LABS: Potassium 3.2 mmol/L (3.5-5.1)
[2020-11-23] MEDS: Apresoline 25 MG TABLET PO PRN (22:17)
[2020-11-24] MEDS: DUONEB 0.5-3 MG/3 ml Neb IH SCH ×6 (03:25→23:35)
[2020-11-24] MEDS: solu-MEDROL 125 MG IV SCH ×2 (03:37→08:41)
[2020-11-24] MEDS: Sodium Chloride 0.9% 1000 ML 1,000 ML IV SCH (04:54)
[2020-11-24 05:30] LABS: Hematocrit 37.7 % (35-47); Hemoglobin 12.3 gm/dl (12.0-16.0); Mean Cell Volume 85.9 fl (78-100); Mean Corpuscular Hgb Concent. 32.6 g/dl (32-36); Mean Platelet Volume 10.5 fl (7.5-11.0); Platelet Count 172 K/mm3 (150-450); Red Blood Count 4.39 M/mm3 (4.1-5.4); Red Cell Distribution Width 12.6 % (11.5-14.0); White Blood Count 9.5 K/mm3 (4.0-10.5)
[2020-11-24 05:59] LABS: BLOOD UREA NITROGEN 21 mg/dL (7-17); CHLORIDE 88 mmol/L (98-107); Calcium 8.3 mg/dL (8.4-10.2); Carbon Dioxide 38 mmol/L (22-30); Creatinine 1 0.82 mg/dL (0.52-1.04); EST GLOMERULAR FILTRATION RATE > 60.0 ML/MIN; Glucose 181 mg/dL (74-106); SODIUM 129 mmol/L (137-145)
[2020-11-24 06:00] LABS: Potassium 2.8 mmol/L (3.5-5.1)
[2020-11-24] MEDS: POTASSIUM CHLORIDE 20 mEq IN WATER 100ML 20 MEQ/100 ML BAG IV SCH ×2 (06:23→08:40)
[2020-11-24] MEDS: Advair Hfa 115/21 Common canister IH SCH ×2 (06:43→19:40)
--- NOTE | 2020-11-24 08:29 | PCM.NOTE ---
Date and Time: 11/24/20826 Subjective Assessment: patient seems frustrated with her current condition, although she is able to speak in full sentences moreso than last week when I saw her. she notes some minimal improvement but seems very slow. Objective Exam General Appearance: no apparent distress Neurologic Exam: alert, oriented x 3 Respiratory Exam: accessory muscle use, prolonged expirations, wheezing Cardiovascular Exam: regular rate/rhythm, normal heart sounds Gastrointestinal/Abdomen Exam: soft, No tenderness, No mass Extremity Exam: normal inspection, normal range of motion OBJECTIVE DATA Vital Signs: Vital Signs - 24 hr Temp Pulse Resp BP Pulse Ox 11/24/20 07:37 95.9 F 58 L 18 196/91 93 L 11/24/20 06:48 74 16 93 L 11/24/20 04:00 97.7 F 62 18 165/81 91 L 11/24/20 03:25 61 16 91 L 11/24/20 00:00 98.1 F 68 16 171/86 93 L 11/23/20 23:17 66 16 91 L 11/23/20 20:00 97.8 F 57 L 16 181/81 93 L 11/23/20 19:38 57 L 16 93 L 11/23/20 16:00 98.3 F 56 L 14 161/73 90 L 11/23/20 14:56 62 18 94 L 11/23/20 12:00 97.7 F 65 19 129/87 91 L 11/23/20 10:47 66 16 91 L Oxygen-Last 24 hours Oxygen Flowrate (L/min)-RT 3 Pain Assessment - Last Documented Pain Intensity 0 Intake and Output: Intake & Output 11/21/20 11/22/20 11/23/20 11/24/20 11:59 11:59 11:59 11:59 Intake Total 3236 3745 3345 1879 Output Total 1500 1500 1975 4150 Balance 1736 2245 1370 -2271 Weight 96.2 kg 98.3 kg 98.2 kg 96.2 kg Lab Results: Lab Results-Last 24 Hours 11/23/20 11/24/20 11/24/20 Range/Units 15:05 04:40 04:40 WBC 9.5 (4.0-10.5) K/mm3 RBC 4.39 (4.1-5.4) M/mm3 Hgb 12.3 (12.0-16.0) gm/dl Hct 37.7 (35-47) % MCV 85.9 (78-100) fl MCH 28.0 (26-32) pg MCHC 32.6 (32-36) g/dl RDW 12.6 (11.5-14.0) % Plt Count 172 (150-450) K/mm3 MPV 10.5 (7.5-11.0) fl Sodium 129 L (137-145) mmol/L Potassium 3.2 L 2.8 L* (3.5-5.1) mmol/L Chloride 88 L (98-107) mmol/L Carbon Dioxide 38 H (22-30) mmol/L Anion Gap 6.0 (5-15) MEQ/L BUN 21 H (7-17) mg/dL Creatinine 0.82 (0.52-1.04) mg/dL Estimated GFR > 60.0 ML/MIN Glucose 181 H (74-106) mg/dL Calcium 8.3 L (8.4-10.2) mg/dL Magnesium 2.0 (1.6-2.3) mg/dL 11/24/20 Range/Units 04:40 WBC (4.0-10.5) K/mm3 RBC (4.1-5.4) M/mm3 Hgb (12.0-16.0) gm/dl Hct (35-47) % MCV (78-100) fl MCH (26-32) pg MCHC (32-36) g/dl RDW (11.5-14.0) % Plt Count (150-450) K/mm3 MPV (7.5-11.0) fl Sodium (137-145) mmol/L Potassium (3.5-5.1) mmol/L Chloride (98-107) mmol/L Carbon Dioxide (22-30) mmol/L Anion Gap (5-15) MEQ/L BUN (7-17) mg/dL Creatinine (0.52-1.04) mg/dL Estimated GFR ML/MIN Glucose (74-106) mg/dL Calcium (8.4-10.2) mg/dL Magnesium 2.0 (1.6-2.3) mg/dL Multi-Disciplinary Progress Notes: Multi-Disciplinary Progress Notes 11/23/20 22:08 Physical Therapy Note by Sydney Herrmann PT. SEEN BY P.TLousie BID THIS DATE. REPORTS SLIGHT IMPROVEMENT IN BREATHING. PT. CONT. ON 3L O2. BED MOBILITY AND SIT TO STAND CONT. TO BE MOD I. PT. IS AMBULATING ~ 50-60' ON 4-6 L O2 TO MAINTAIN O2 SATS > 90% W/ AMBULATION. PT .STILL REQUIRES FREQUENT V.C. TO BREATHE W/ PURSED LIP TECHNIQUE AND TO DECREASE TENDENCY TO TALK WHILE WALKING SO SHE CAN FOCUS ON BREATHING. PT. STILL DEMOS LURCHING OF TRUNK TO THE L W/ GAIT WHICH SHE REPORTS IS CHRONIC D/T L KNEE ISSUES. WILL CONT. PT TOLERATED TO INCREASE ENDURANCE AND GAIT TOLERANCE. SYDNEY HERRMANN, PT Initialized on 11/23/20 22:08 - END OF NOTE 11/23/20 11:05 Nutrition Note by Marija Moya F/u Note: House regular diet con't with 50-100% po intake. + fluid balance 1850 mls. adm weight 82.8kg; current weight 98.3 kg. Pt's weight up 15.5kg/9 days. Con't to recommend low sodium diet. goal of po intake >=75% met and ongoing. Adding goal #2) decrease +fluid balance. Will con't to monitor and f/u prn. T.KIRSTY Myoa Initialized on 11/23/20 11:05 - END OF NOTE 11/23/20 10:24 Case Management Note by Janeth Francis NO CHANGE IN DC PLANS AT THIS TIME- WILL CONTINUE TO FOLLOW Initialized on 11/23/20 10:24 - END OF NOTE Assessment/Plan (1) Acute exacerbation of chronic obstructive pulmonary disease (COPD) Current Visit: No Status: Acute Assessment & Plan: continue ceftin, IV solu medrol and nebs. theophylline drip per pulm to reassess. Code(s): J44.1 - CHRONIC OBSTRUCTIVE PULMONARY DISEASE W (ACUTE) EXACERBATION (2) Congestive heart failure Current Visit: Yes Status: Acute Qualifiers: Heart failure type: diastolic Heart failure chronicity: chronic Qualified Code(s): I50.32 - Chronic diastolic (congestive) heart failure Code(s): I50.9 - HEART FAILURE, UNSPECIFIED (3) Hypokalemia Current Visit: Yes Status: Acute Assessment & Plan: potassium being replaced currently Code(s): E87.6 - HYPOKALEMIA
[2020-11-24] MEDS: CEFTIN 500 MG PO SCH ×2 (10:38→23:09)
[2020-11-24] MEDS: Zestril 20 MG PO SCH (10:38)
[2020-11-24] MEDS: ZOCOR 20MG PO SCH (10:38)
[2020-11-24] MEDS: Lasix 40 MG PO SCH (10:38)
[2020-11-24] MEDS: Colace 100 MG PO SCH ×2 (10:38→23:10)
[2020-11-24] MEDS: Cardizem CD 180 MG PO SCH ×2 (10:38→23:09)
[2020-11-24] MEDS: Klor Con 10 MEQ PO SCH ×2 (10:38→22:00)
[2020-11-24] MEDS: Catapres 0.1 MG PO SCH ×3 (10:38→23:08)
[2020-11-24] MEDS: Coreg 6.25 MG PO SCH ×2 (10:39→23:10)
[2020-11-24] MEDS: Miralax Powder 17GM PACKET PO SCH (10:39)
[2020-11-24 13:02] LABS: Potassium 3.3 mmol/L (3.5-5.1)
[2020-11-24] MEDS ORDERED: K-LYTE 25 MEQ PO ONE (13:31)
[2020-11-24] MEDS: solu-MEDROL 40 MG IV SCH ×2 (14:04→23:08)
[2020-11-24] MEDS: Apresoline 25 MG TABLET PO PRN (23:10)
[2020-11-25] MEDS: DUONEB 0.5-3 MG/3 ml Neb IH SCH ×4 (04:00→14:25)
[2020-11-25 05:30] LABS: Hematocrit 38.7 % (35-47); Hemoglobin 12.6 gm/dl (12.0-16.0); Mean Cell Volume 85.4 fl (78-100); Mean Corpuscular Hemoglobin 27.8 pg (26-32); Mean Corpuscular Hgb Concent. 32.6 g/dl (32-36); Mean Platelet Volume 10.6 fl (7.5-11.0); Platelet Count 153 K/mm3 (150-450); Red Blood Count 4.53 M/mm3 (4.1-5.4); Red Cell Distribution Width 12.6 % (11.5-14.0); White Blood Count 10.5 K/mm3 (4.0-10.5)
[2020-11-25 06:06] LABS: BLOOD UREA NITROGEN 22 mg/dL (7-17); CHLORIDE 88 mmol/L (98-107); Calcium 8.5 mg/dL (8.4-10.2); Carbon Dioxide 37 mmol/L (22-30); EST GLOMERULAR FILTRATION RATE > 60.0 ML/MIN; Glucose 192 mg/dL (74-106); Potassium 3.4 mmol/L (3.5-5.1); SODIUM 128 mmol/L (137-145)
[2020-11-25] MEDS: Advair Hfa 115/21 Common canister IH SCH (06:43)
[2020-11-25] MEDS ORDERED: Lasix 40 MG PO SCH (08:08)
[2020-11-25] MEDS ORDERED: HUMALOG SQ PRN (08:12)
--- NOTE | 2020-11-25 08:35 | PCM.DS ---
Discharge Summary Date of Admission: 11/12/20 10:40 Admitting Physician: EREN TEMPLE Consults: Consults on Case 11/18/20 08:53 Consult Pulmonology ROUTINE Primary Care Provider: DANY CARY Allergies Allergies No Known Drug Allergies Allergy (Verified 11/12/20 06:44) Hospital Summary - Hospital Course Hospital Course: Pt is 65 yo female pt of mine with CHF, COPD, and DM who was admitted through ER for CHF and COPD exacerbations. CT chest neg for PE but indicated CHF. Was initially on IV zithromax and rocephin with IV steroids but was still quite wheezy with poor air exchange. Dr. Robetrs was consulted and put the pt on po cephalosporin and IV theophylline. Her breathing has improved to fair air exc hange with scattered wheezes. She is on 3L NC. During her stay, her potassium has been low (down to 2.7) and has been repleted daily. This morning she complains that her feet are swelling; she's been on 40mg po lasix daily and will be increased to 80mg daily, with a concurrent increase in potassium. Will recheck BMP and Mg in 3 days (Saturday). Pt has been receiving PT. Today I am checking her D-dimer, as she has not been on lovenox. If elevated, she will need another CT of the chest with contrast to r/o PE. If all neg, will discharge her to home this afternoon. - Vitals & Intake/Output Vital Signs: Vital Signs Temperature 98.3 F 11/25/20 07:09 Pulse Rate 56 L 11/25/20 07:09 Respiratory Rate 16 11/25/20 07:09 Blood Pressure 138/70 11/25/20 07:09 O2 Sat by Pulse Oximetry 94 L 11/25/20 07:09 Intake & Output: Intake & Output 11/22/20 11/23/20 11/24/20 11/25/20 11:59 11:59 11:59 11:59 Intake Total 3745 3345 1879 1050 Output Total 1500 1975 4150 2900 Balance 2245 6570 -3232 -7110 Weight 98.3 kg 98.2 kg 96.2 kg 93.9 kg - Lab Result Diagrams: 11/25/20 04:40 11/25/20 04:40 Lab Results-Last 24 Hrs: Lab Results-Last 24 Hours 11/24/20 11/25/20 11/25/20 Range/Units 12:45 04:40 04:40 WBC 10.5 (4.0-10.5) K/mm3 RBC 4.53 (4.1-5.4) M/mm3 Hgb 12.6 (12.0-16.0) gm/dl Hct 38.7 (35-47) % MCV 85.4 (78-100) fl MCH 27.8 (26-32) pg MCHC 32.6 (32-36) g/dl RDW 12.6 (11.5-14.0) % Plt Count 153 (150-450) K/mm3 MPV 10.6 (7.5-11.0) fl Sodium 128 L (137-145) mmol/L Potassium 3.3 L 3.4 L (3.5-5.1) mmol/L Chloride 88 L (98-107) mmol/L Carbon Dioxide 37 H (22-30) mmol/L Anion Gap 6.0 (5-15) MEQ/L BUN 22 H (7-17) mg/dL Creatinine 0.60 (0.52-1.04) mg/dL Estimated GFR > 60.0 ML/MIN Glucose 192 H (74-106) mg/dL Calcium 8.5 (8.4-10.2) mg/dL Magnesium 2.0 (1.6-2.3) mg/dL 11/25/20 Range/Units 04:40 WBC (4.0-10.5) K/mm3 RBC (4.1-5.4) M/mm3 Hgb (12.0-16.0) gm/dl Hct (35-47) % MCV (78-100) fl MCH (26-32) pg MCHC (32-36) g/dl RDW (11.5-14.0) % Plt Count (150-450) K/mm3 MPV (7.5-11.0) fl Sodium (137-145) mmol/L Potassium (3.5-5.1) mmol/L Chloride (98-107) mmol/L Carbon Dioxide (22-30) mmol/L Anion Gap (5-15) MEQ/L BUN (7-17) mg/dL Creatinine (0.52-1.04) mg/dL Estimated GFR ML/MIN Glucose (74-106) mg/dL Calcium (8.4-10.2) mg/dL Magnesium 2.0 (1.6-2.3) mg/dL Micro Results-Entire Visit: Microbiology 11/20/20 16:00 Gram Stain - Final Sputum - Expectorant Sputum Culture - Final ORGANISMS ISOLATED ARE CONSISTENT WITH NORMAL RESP LAURIE MODERATE GROWTH, NO PREDOMINANT ORGANISM 11/12/20 07:35 Blood Culture Gram Stain - Final Blood Not Reportable Blood Culture - Final NO GROWTH 11/12/20 06:55 Blood Culture Gram Stain - Final Blood Not Reportable Blood Culture - Final NO GROWTH - Procedures and Test Procedures and Tests throughout Hospitalization: Therapy Orders & Screens 11/12/20 07:10 Respiratory Therapy Assessment DAILY Comment: 11/12/20 10:48 EKG REPEAT IN AM Comment: Oxygen Nasal Cannula 4 lpm Comment: Respiratory Therapy Consult ROUTINE Comment: Reason For Exam: 11/12/20 11:55 RT Screen per Nursing Assess ONCE Comment: Protocol Order Physician Instructions: Greater than 3 points order RT Admission Screen Reason For Exam: Triggered on Admission Diagnosis: CHF COPD Diagnosis: CHF COPD Pneumonia: No Home O2: Yes Asthma: No CHF: Yes Home CPAP/BIPAP: No Home Nebs/MDI: Yes Total Points: 13 Smoking Cessation Education ONCE Comment: Diagnosis: CHF COPD Smoking Status: Current every day smoker How long have you smoked: 47 years Have you smoked in the past 12 months: Yes Approximately how many cigarettes per day: 10-12 Do you dip or chew tobacco: No 11/12/20 12:20 EKG STAT Comment: Diagnosis: CHF COPD 11/12/20 12:36 Respiratory Therapy Assessment DAILY Comment: Diagnosis: CHF COPD 11/12/20 15:10 Respiratory MDI BID Comment: Diagnosis: CHF COPD 11/14/20 08:37 PT Eval & Treat (MD Order) ONCE Reason for Eval:: deconditioning; sob Diagnosis: CHF COPD 11/14/20 09:05 Qualify for Home Oxygen TODAY Comment: Diagnosis: CHF COPD 11/16/20 03:24 Flutter Therapy UD Comment: Diagnosis: CHF COPD Discharge Exam General Appearance: no apparent distress, alert Neurologic Exam: oriented x 3, cooperative Eye Exam: eyes nml inspection Ears, Nose, Throat Exam: moist mucous membranes Neck Exam: normal inspection Respiratory Exam: diminished breath sounds (fair air exchange), wheezing (faint, scattered in bases bilat), other (no dyspnea at rest. eating breakfast.), No crackles/rales, No rhonchi Cardiovascular Exam: regular rate/rhythm, normal heart sounds, No murmur Gastrointestinal/Abdomen Exam: soft, normal bowel sounds, No tenderness, No distention, No mass, No guarding, No rebound Extremity Exam: pedal edema (1+ bilat LE edema) Skin Exam: normal color, warm, dry, No rash Final Diagnosis/Problem List - Final Discharge Diagnosis/Problem (1) COPD exacerbation Current Visit: Yes Status: Acute Assessment & Plan: Home on po prednisone in a taper. F/u with Dr. Roberts next week, pls. She has completed 2 weeks of antibiotics so will not send her home on an antibiotic. Code(s): J44.1 - CHRONIC OBSTRUCTIVE PULMONARY DISEASE W (ACUTE) EXACERBATION (2) Congestive heart failure Current Visit: Yes Status: Acute Assessment & Plan: increase lasix to 80mg po daily until follow up. recheck BMP/Mg in 3 days outpatient. Code(s): I50.9 - HEART FAILURE, UNSPECIFIED (3) Muscular deconditioning Current Visit: Yes Status: Acute Assessment & Plan: PT has been seeing pt, thank you. If they think it would benefit pt, would like for her to have outpatient PT. Code(s): R29.898 - OTH SYMPTOMS AND SIGNS INVOLVING THE MUSCULOSKELETAL SYSTEM (4) Hypokalemia Current Visit: Yes Status: Acute Assessment & Plan: Today's potassium was 3.4, improved. Code(s): E87.6 - HYPOKALEMIA (5) Dysphagia Current Visit: Yes Status: Resolved Code(s): R13.10 - DYSPHAGIA, UNSPECIFIED (6) Chronic hypoxemic respiratory failure Current Visit: Yes Status: Chronic Assessment & Plan: Home on O2. - Discharge Disposition: Home, Self-Care Condition: Stable Prescriptions: New Prednisone 20 mg [Deltasone 20 mg] 60 mg PO QAM #35 tablet Potassium Chloride 10 Meq Tab* [Klor Con 10 MEQ] 40 meq PO TID #90 tab Furosemide 40 mg [Lasix 40 MG] 80 mg PO DAILY #30 tablet Continue Tramadol HCl 50 mg [Ultram 50 mg] 1 tab PO BID PRN PRN PRN Reason: Pain Albuterol 8 gm Mdi Hfa [Ventolin Hfa MDI] 2 puffs IH Q4H PRN PRN PRN Reason: Shortness Of Breath lisinopriL [Zestril 40 mg] 40 mg PO DAILY #30 tablet Clonidine HCl [Catapres] 0.3 mg PO TID Atorvastatin Calcium [Lipitor] 40 mg PO DAILY Fluticasone/Umeclidin/Vilanter [Trelegy Ellipta 100-62.5-25] 1 inh IH DAILY Aspirin EC 81 mg [Ecotrin 81 mg] 1 tab PO DAILY #0 Prednisone 10 mg [Deltasone 10 mg] 10 mg PO UD Albuterol Sulfate 1 amp IH QID PRN PRN PRN Reason: Shortness Of Breath Carvedilol 12.5 mg [Coreg 12.5 mg] 12.5 mg PO BID Chlorthalidone 25 mg PO DAILY dilTIAZem HCl [Diltiazem 24Hr ER (Cd)] 180 mg PO BID Discontinued Cefdinir [Omnicef 300 mg] 300 mg PO BID Follow up with: KULWANT ROBERTS [ACTIVE STAFF] - (FOLLOW UP WITH DR ROBERTS 2 WEEKS AFTER DISCHARGE)
[2020-11-25] MEDS: Miralax Powder 17GM PACKET PO SCH (09:46)
[2020-11-25] MEDS: Cardizem CD 180 MG PO SCH (09:46)
[2020-11-25] MEDS: Catapres 0.1 MG PO SCH (09:47)
[2020-11-25] MEDS: ZOCOR 20MG PO SCH (09:47)
[2020-11-25] MEDS: Zestril 20 MG PO SCH (09:47)
[2020-11-25] MEDS: Colace 100 MG PO SCH (09:47)
[2020-11-25] MEDS: Apresoline 25 MG TABLET PO PRN (09:48)
[2020-11-25] MEDS: Coreg 6.25 MG PO SCH (09:48)
[2020-11-25] MEDS: Klor Con 10 MEQ PO SCH (09:48)
[2020-11-25] MEDS: CEFTIN 500 MG PO SCH (09:49)
[2020-11-25] MEDS ORDERED: ENOXAPARIN SODIUM SQ SCH (10:00)
[2020-11-25] MEDS ORDERED: solu-MEDROL 40 MG IV SCH (10:00)
--- NOTE | 2020-11-25 10:20 | XRAY ---
Indication: Short of breath. Elevated d-dimer. Multiple contiguous axial images obtained through the chest using 100 cc Isovue 370 contrast and PE protocol. Comparison: November 12, 2020. There is good opacification of the pulmonary arteries to include the lobar and segmental branches. Again no pulmonary embolus. Heart remains enlarged without pericardial effusion aorta remains mildly etcher sclerotic again without aneurysm/dissection. Stable tiny right suprahilar calcified nodes. No pathologic mediastinal/hilar lymphadenopathy. New small hiatal hernia. Lungs again demonstrates moderate bilateral pleural effusions with increasing mild bibasilar compressive atelectasis. Left upper lobe demonstrates new moderate size focus of airspace disease. Bony thorax again demonstrates mild degenerative changes throughout the spine. Limited upper abdomen again demonstrates splenic calcified granulomas. Impression: 1. Continued negative pulmonary embolus. 2. Again cardiomegaly with moderate bilateral effusions favoring CHF/fluid overload with worsening bibasilar compressive atelectasis. 3. New left upper lobe airspace disease. 4. New small hiatal hernia.
[2020-11-25 11:39] VITALS: BP 158/76
[2020-11-25 14:37] VITALS: PULSE 66; O2SAT 94
[2020-11-26] MEDS ORDERED: DELTASONE 20 MG PO SCH (10:00)
== END 2020-11-25 14:52 | disposition home or self-care (01) | DRG 191 ==
LOC: ED 06:38 → MED SURG 10:40
PROVIDERS: ADMIT Family Medicine; ATTEND Family Medicine
PROC: 0DD68ZX Extraction of Stomach, Via Natural or Artificial Opening Endoscopic, Diagnostic (ICD-10-PCS; principal; 2020-11-14)
PROC: 0D718ZZ Dilation of Upper Esophagus, Via Natural or Artificial Opening Endoscopic (ICD-10-PCS; 2020-11-14)
DX: J44.1 Chronic obstructive pulmonary disease with (acute) exacerbation (principal); J96.11 Chronic respiratory failure with hypoxia; J90 Pleural effusion, not elsewhere classified; I11.0 Hypertensive heart disease with heart failure; I50.9 Heart failure, unspecified; Z79.899 Other long term (current) drug therapy; E78.00 Pure hypercholesterolemia, unspecified; R13.10 Dysphagia, unspecified; F17.200 Nicotine dependence, unspecified, uncomplicated; E87.6 Hypokalemia; R29.898 Other symptoms and signs involving the musculoskeletal system; K29.70 Gastritis, unspecified, without bleeding; K22.2 Esophageal obstruction; K22.4 Dyskinesia of esophagus
CPT/HCPCS: 36000; 36415; 36600; 43239; 43249; 71045; 71046; 71260; 80048; 80053; 80198; 82375; 82728; 82803; 82947; 83036; 83605; 83615; 83735; 83880; 84132; 84145; 84484; 85025; 85027; 85379; 86308; 87040; 87070; 87400; 87651; 93005; 93306; 94640; 94667; 94668; 94760; 94762; 96374; 97110; 97161; 97530; 99284; U0003; 88305; C1726; J0280; J0456; J0696; J1650; J1817; J1940; J2250; J2405; J2704; J2920; J2930; J3480; A9270-GY

== ENCOUNTER 2020-11-30 10:36 | Inpatient (IN) | payer MEDICARE ==
[2020-11-30] MEDS ORDERED: BABY ASPIRIN 81 MG CHEW PO ONE (10:48)
--- NOTE | 2020-11-30 10:55 | ERPHSYRPT ---
- History of Present Illness Time Seen by Provider: 11/30/20 10:40 Source: patient, EMS Exam Limitations: no limitations Patient Subjective Stated Complaint: pt here from drs office for low o2 sats. pt states she went to office withourt her home o2, sats at office was 67%,o2 applied and resp tx given, and solumedrol, Triage Nursing Assessment: pt alert, resp labored with movement, o2 at 4 lnc, audible wheezes heard, slight edema to lower legs, abd soft Physician History: 65 years old female with history of chronic respiratory failure secondary to COPD on 3 L oxygen, congestive heart failure, hypertension, hyperlipidemia who was recently admitted presented in the ER from primary care office with oxygen saturation around 66%. Patient went for routine visit but did not have oxygen on's for a while. Patient was in moderate distress at primary care office with wheezing all over. She is placed on oxygen, given DuoNeb and Solu-Medrol and her saturation improved to 96% on presentation in the ER. Patient report having mild increased shortness of breath than usual for the last couple of days and is also having cough productive of yellow-green sputum moderate in amount with no hemoptysis. Denies any chest pain or palpitations. She also has a low-grade fever of 100.3 on presentation in the ER. Timing/Duration: today, sudden, improved Activities at Onset: rest Severity of Dyspnea-Max: severe Severity of Dyspnea-Current: mild Possible Cause: occasional episodes Associated Symptoms: cough, edema, ankle swelling, leg swelling, productive cough, No chest pain/discomfort, No painful breathing, No tightness Allergies/Adverse Reactions: No Known Drug Allergies Allergy (Verified 11/12/20 06:44) Home Medications: Tramadol HCl 50 mg [Ultram 50 mg] 1 tab PO BID PRN PRN 01/13/14 [History] Albuterol 8 gm Mdi Hfa [Ventolin Hfa MDI] 2 puffs IH Q4H PRN PRN 08/02/15 [History] Clonidine HCl [Catapres] 0.3 mg PO TID 07/28/18 [History] Atorvastatin Calcium [Lipitor] 40 mg PO DAILY 12/06/18 [History] Fluticasone/Umeclidin/Vilanter [Trelegy Ellipta 100-62.5-25] 1 inh IH DAILY 04/04/20 [History] Albuterol Sulfate 1 amp IH QID PRN PRN 11/12/20 [History] Carvedilol 12.5 mg [Coreg 12.5 mg] 12.5 mg PO BID 11/12/20 [History] Chlorthalidone 25 mg PO DAILY 11/12/20 [History] Prednisone 10 mg [Deltasone 10 mg] 10 mg PO UD 11/12/20 [History] dilTIAZem HCl [Diltiazem 24Hr ER (Cd)] 180 mg PO BID 11/13/20 [History] Hx Tetanus, Diphtheria Vaccination/Date Given: No Hx Influenza Vaccination/Date Given: Yes Hx Pneumococcal Vaccination/Date Given: Yes Immunizations Up to Date: Yes Travel Risk - International Travel Have you traveled outside of the country in past 3 weeks: No - Coronavirus Screening Are you exhibiting any of the following symptoms?: No Symptoms: Cough: New Onset Close contact with a COVID-19 positive Pt in past 14-21 Days: No - Review of Systems Constitutional: Fever, Chills, Malaise Eyes: No Symptoms Ears, Nose, & Throat: No Symptoms Respiratory: Cough, Dyspnea, Dyspnea on Exertion (ROBLES), Wheezing Cardiac: Edema Abdominal/Gastrointestinal: No Symptoms Genitourinary Symptoms: No Symptoms Musculoskeletal: No Symptoms Skin: No Symptoms Neurological: No Symptoms Psychological: No Symptoms Endocrine: No Symptoms Hematologic/Lymphatic: No Symptoms Immunological/Allergic: No Symptoms - Past Medical History Pertinent Past Medical History: Yes Neurological History: Migraines ENT History: No Pertinent History Cardiac History: High Cholesterol, Hypertension Respiratory History: Asthma, COPD, Emphysema, Other Endocrine Medical History: No Pertinent History Musculoskeletal History: Arthritis GI Medical History: Gallbladder Disease History: No Pertinent History Psycho-Social History: Anxiety Female Reproductive Disorders: No Pertinent History Other Medical History: 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 - Past Surgical History Past Surgical History: Yes Neuro Surgical History: No Pertinent History Cardiac: No Pertinent History Respiratory: No Pertinent History Gastrointestinal: Cholecystectomy Genitourinary: No Pertinent History Musculoskeletal: Orthopedic Surgery Female Surgical History: Hysterectomy Other Surgical History: right knee replacement, screw in pelvis, misha in left leg - Social History Smoking Status: Current every day smoker How long have you smoked: 47 years Exposure to second hand smoke: Yes Drug Use: none Patient Lives Alone: Yes - Female History Hx Last Menstrual Period: post - Nursing Vital Signs Nursing Vital Signs: Initial Vital Signs Temperature 100.3 F 11/30/20 10:41 Pulse Rate 99 H 11/30/20 10:41 Respiratory Rate 22 11/30/20 10:41 Blood Pressure 168/114 11/30/20 10:41 O2 Sat by Pulse Oximetry 95 11/30/20 10:41 Pain Scale Pain Intensity 0 - Physical Exam General Appearance: no apparent distress, alert Eye Exam: PERRL/EOMI, eyes nml inspection Ears, Nose, Throat Exam: hearing grossly normal, normal ENT inspection, normal pharynx Neck Exam: normal inspection, non-tender, supple, full range of motion Respiratory Exam: diminished breath sounds, accessory muscle use, crackles/rales, rhonchi, wheezing Cardiovascular/Chest Exam: normal heart sounds, regular rate/rhythm Abdominal/Gastrointestinal Exam: soft, normal bowel sounds Extremity Exam: non-tender, normal range of motion, swelling Neurologic Exam: alert, oriented x 3, cooperative Skin Exam: normal color SpO2 Interpretation: normal SpO2: 95 O2 Delivery: Room Air Ordered Tests: Active Orders 24 hr Category Date Time Status Sweat Band Separator STAT Care 11/30/20 10:47 Active EKG-ER Only STAT Care 11/30/20 10:47 Active IV Insertion STAT Care 11/30/20 10:47 Active Oxygen-ED Only Nasal Cannula 3 lpm Care 11/30/20 10:47 Active CHEST 1 VIEW (PORTABLE) Stat Exams 11/30/20 10:47 Completed ARTERIAL BLOOD GASES Stat Lab 11/30/20 10:58 Completed BLOOD CULTURE Stat Lab 11/30/20 11:20 Received CBC W DIFF Stat Lab 11/30/20 11:11 Completed CMP Stat Lab 11/30/20 11:11 Completed Lactic Acid Stat Lab 11/30/20 10:58 Completed MAGNESIUM Stat Lab 11/30/20 11:11 Completed NT PRO BNP Stat Lab 11/30/20 11:11 Completed TROPONIN Q3H Lab 11/30/20 11:11 Completed TROPONIN Q3H Lab 11/30/20 14:00 Ordered TROPONIN Q3H Lab 11/30/20 17:00 Ordered TROPONIN Q3H Lab 11/30/20 20:00 Ordered TROPONIN Q3H Lab 11/30/20 23:00 Ordered Transfer Order Routine Transfer 11/30/20 Ordered Medication Summary Generic Name Dose Route Start Last Admin Trade Name Thu PRN Reason Stop Dose Admin Potassium Chloride 20 meq in 100 mls @ 50 mls/hr 11/30/20 12:00 11/30/20 12:16 Potassium Chloride 20 Meq In Water 100ml IV 11/30/20 15:59 50 mls/hr Q2H CARLOS ENRIQUE Administration Discontinued Medications Generic Name Dose Route Start Last Admin Trade Name Thu PRN Reason Stop Dose Admin Aspirin 324 mg 11/30/20 10:48 11/30/20 11:04 Baby Aspirin 81 Mg Chew PO 11/30/20 10:49 324 mg STAT ONE Administration Azithromycin 500 mg in 250 mls @ 250 mls/hr 11/30/20 11:30 11/30/20 12:16 Zithromax 500 Mg/ 250 Ml Nacl Premix IV 11/30/20 12:29 250 mls/hr STAT STA 250 mls/hr Administration Ceftriaxone Sodium/Dextrose 1 g in 50 mls @ 100 mls/hr 11/30/20 11:30 11/30/20 12:46 Rocephin 1 Gm-D5w 50 Ml Bag IV 11/30/20 11:59 Infused STAT STA Infusion Azithromycin Confirm 11/30/20 12:14 Zithromax 500 Mg/ 250 Ml Nacl Premix Administered 11/30/20 12:15 Dose 500 mg in 250 mls @ ud IV .STK-MED ONE Ceftriaxone Sodium/Dextrose Confirm 11/30/20 12:14 Rocephin 1 Gm-D5w 50 Ml Bag Administered 11/30/20 12:15 Dose 1 g in 50 mls @ ud IV .STK-MED ONE Sodium Chloride Confirm 11/30/20 12:30 Sodium Chloride 0.9% 1000 Ml Administered 11/30/20 12:31 Dose 1,000 mls @ ud .ROUTE .STK-MED ONE Potassium Chloride 40 meq 11/30/20 11:58 11/30/20 12:16 Klor Con 10 Meq PO 11/30/20 11:59 40 meq STAT ONE Administration Potassium Chloride Confirm 11/30/20 12:14 Klor Con 10 Meq Administered 11/30/20 12:15 Dose 40 meq PO .STK-MED ONE Lab/Rad Data: Laboratory Result Diagrams 11/30/20 11:11 11/30/20 11:11 Laboratory Results 11/30/20 11/30/20 11/30/20 Range/Units 11:11 11:11 11:11 WBC 7.4 (4.0-10.5) K/mm3 RBC 4.89 (4.1-5.4) M/mm3 Hgb 13.4 (12.0-16.0) gm/dl Hct 42.9 (35-47) % MCV 87.7 (78-100) fl MCH 27.4 (26-32) pg MCHC 31.2 L (32-36) g/dl RDW 13.7 (11.5-14.0) % Plt Count 76 L (150-450) K/mm3 MPV 10.6 (7.5-11.0) fl Gran % 93.3 H (36.0-66.0) % Eos # (Auto) 0 (0-0.5) Absolute Lymphs (auto) 0.30 L (1.0-4.6) Absolute Monos (auto) 0.19 (0.0-1.3) Lymphocytes % 4.0 L (24.0-44.0) % Monocytes % 2.6 (0.0-12.0) % Eosinophils % 0.0 (0.00-5.0) % Basophils % 0.1 (0.0-0.4) % Absolute Granulocytes 6.93 H (1.4-6.9) Basophils # 0.01 (0-0.4) Puncture Site pCO2 (35-45) mmHg pO2 (75-100) mmHg Base Excess (-2.0-2.0) O2 Saturation (94-100) g/dF ABG pH (7.35-7.45) ABG HCO3 (22-28) ABG O2 Sat (Measured) (95-100) % Hiro Test A-a Gradient a/A Ratio Hemoglobin Carboxyhemoglobin (0.0-6.9) % THgb Methemoglobin (1.4-1.5) % Potassium 2.3 L* (3.5-5.1) Temperature C POC O2 Flow Rate % Sodium 133 L (137-145) mmol/L Chloride 80 L (98-107) mmol/L Carbon Dioxide 45 H (22-30) mmol/L Anion Gap 10.3 (5-15) MEQ/L BUN 30 H (7-17) mg/dL Creatinine 0.97 (0.52-1.04) mg/dL Estimated GFR > 60.0 ML/MIN Glucose 133 H (74-106) mg/dL Lactic Acid (0.4-2.0) Calcium 8.9 (8.4-10.2) mg/dL Magnesium 2.5 H (1.6-2.3) mg/dL Total Bilirubin 2.10 H (0.2-1.3) mg/dL AST 40 H (14-36) U/L ALT 34 (0-35) U/L Alkaline Phosphatase 84 (38-126) U/L Troponin I 0.134 H* (0.000-0.034) ng/mL NT-Pro-B Natriuret Pep 1020 H (0-900) pg/mL Serum Total Protein 7.0 (6.3-8.2) g/dL Albumin 3.8 (3.5-5.0) g/dL 11/30/20 Range/Units 10:58 WBC (4.0-10.5) K/mm3 RBC (4.1-5.4) M/mm3 Hgb (12.0-16.0) gm/dl Hct (35-47) % MCV (78-100) fl MCH (26-32) pg MCHC (32-36) g/dl RDW (11.5-14.0) % Plt Count (150-450) K/mm3 MPV (7.5-11.0) fl Gran % (36.0-66.0) % Eos # (Auto) (0-0.5) Absolute Lymphs (auto) (1.0-4.6) Absolute Monos (auto) (0.0-1.3) Lymphocytes % (24.0-44.0) % Monocytes % (0.0-12.0) % Eosinophils % (0.00-5.0) % Basophils % (0.0-0.4) % Absolute Granulocytes (1.4-6.9) Basophils # (0-0.4) Puncture Site LEFT BRACHIAL pCO2 51 H (35-45) mmHg pO2 97 (75-100) mmHg Base Excess 22.6 H (-2.0-2.0) O2 Saturation 94.8 (94-100) g/dF ABG pH 7.58 H* (7.35-7.45) ABG HCO3 47.8 H* (22-28) ABG O2 Sat (Measured) 98.4 (95-100) % Hiro Test NOT APPLICABLE A-a Gradient 67 a/A Ratio 0.59 Hemoglobin 13.0 Carboxyhemoglobin 2.6 (0.0-6.9) % THgb Methemoglobin 1.1 L (1.4-1.5) % Potassium 2.2 L* (3.5-5.1) Temperature 37.0 C POC O2 Flow Rate 32 % Sodium (137-145) mmol/L Chloride (98-107) mmol/L Carbon Dioxide (22-30) mmol/L Anion Gap (5-15) MEQ/L BUN (7-17) mg/dL Creatinine (0.52-1.04) mg/dL Estimated GFR ML/MIN Glucose (74-106) mg/dL Lactic Acid 1.1 (0.4-2.0) Calcium (8.4-10.2) mg/dL Magnesium (1.6-2.3) mg/dL Total Bilirubin (0.2-1.3) mg/dL AST (14-36) U/L ALT (0-35) U/L Alkaline Phosphatase (38-126) U/L Troponin I (0.000-0.034) ng/mL NT-Pro-B Natriuret Pep (0-900) pg/mL Serum Total Protein (6.3-8.2) g/dL Albumin (3.5-5.0) g/dL - Progress Progress Note: 11/30/20 12:26 65 years old is evaluated for respiratory failure hypoxia at PCP office. She is given Solu-Medrol and breathing treatment on the way to the ER by EMS and is placed on 4 L oxygen, on presentation her oxygen is 97%. EKG shows some T wave inversion in lateral leads. No ST elevations. Chest x-ray showed new infiltrat esteban process in the left upper lobe and is given a dose of antibiotics. Patient also has hypokalemia of 2.3 and started on oral and IV replacement. Patient initial troponin 0 0.134. Given aspirin. She is not complaining of any chest pain on presentation and on reevaluation. Her breathing is much improved on reevaluation as well. I have discussed with Dr. Whaley was going to evaluate patient in the hospital today. I have discussed with Dr. Ardon, discussed patient work-up including elevated troponin and current management and consultation with pulmonology, agreed with admission to ICU. Blood Culture(s) Obtained: Yes Antibiotics given: Yes Discussed with : Sofie, Other (Dr. 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 installer) Will see patient in: hospital (observation) Counseled pt/family regarding: lab results, diagnosis, rad results - Departure Departure Disposition: Observation Clinical Impression: Acute exacerbation of chronic obstructive pulmonary disease (COPD), Hypokalemia, NSTEMI (non-ST elevated myocardial infarction) Respiratory failure Qualifiers: Chronicity: acute on chronic Respiratory failure complication: hypoxia Qualified Code(s): J96.21 - Acute and chronic respiratory failure with hypoxia Pneumonia Qualifiers: Pneumonia type: due to unspecified organism Laterality: left Lung location: unspecified part of lung Qualified Code(s): J18.9 - Pneumonia, unspecified organism Condition: Fair Critical Care Time: Yes Critical Care Time(excluding separately billable procedures): Critical 30-74 mins Referrals: DANY ARDON [Primary Care Provider] - Instructions: Chronic Obstructive Pulmonary Disease
[2020-11-30 11:01] LABS: A-aADO2 67; ARTERIAL BLD GAS O2 SATURATION 98.4 % (95-100); ARTERIAL BLOOD GAS BASE EXCESS 22.6 (-2.0-2.0); ARTERIAL BLOOD GAS FIO2 32 %; ARTERIAL BLOOD GAS PCO2 51 mmHg (35-45); ARTERIAL BLOOD GAS PO2 97 mmHg (75-100); CARBOXYHEMOGLOBIN 2.6 % THgb (0.0-6.9); HCO3- 47.8 (22-28); HGB O2 SAT 94.8 g/dF (94-100); Lactic Acid 1.1 (0.4-2.0); Methhemoglobin 1.1 % (1.4-1.5)
[2020-11-30 11:02] LABS: ARTERIAL BLOOD GAS pH 7.58 (7.35-7.45)
[2020-11-30 11:03] LABS: ABG POTASSIUM 2.2 (3.5-5.1); ABG SITE LEFT BRACHIAL
--- NOTE | 2020-11-30 11:14 | XRAY ---
Indication: Pneumonia. Comparison: November 21, 2020. Portable chest demonstrates continued clearing of bilateral pleural effusions. New left lung patchy airspace disease greatest in upper lobe. Heart and mediastinal structures within normal limits.
[2020-11-30 11:27] LABS: Absolute Neutrophil Ct (ANC) 6.93 (1.4-6.9); BASOPHIL % 0.1 % (0.0-0.4); Basophil (Absolute #) 0.01 (0-0.4); Eosinophil (Absolute #) 0 (0-0.5); Hematocrit 42.9 % (35-47); Hemoglobin 13.4 gm/dl (12.0-16.0); Mean Cell Volume 87.7 fl (78-100); Mean Corpuscular Hemoglobin 27.4 pg (26-32); Mean Corpuscular Hgb Concent. 31.2 g/dl (32-36); Mean Platelet Volume 10.6 fl (7.5-11.0); Monocyte (Absolute #) 0.19 (0.0-1.3); Monocytes % 2.6 % (0.0-12.0); Neutrophil % 93.3 % (36.0-66.0); Platelet Count 76 K/mm3 (150-450); Red Blood Count 4.89 M/mm3 (4.1-5.4); Red Cell Distribution Width 13.7 % (11.5-14.0); White Blood Count 7.4 K/mm3 (4.0-10.5)
[2020-11-30] MEDS ORDERED: Zithromax 500 MG/ 250 ML NaCl Premix 500 MG/250 ML IVPB IV STA (11:30)
[2020-11-30] MEDS ORDERED: ROCEPHIN 1 Gm-D5w 50 ml Bag** 1 G/50 ML IVPB IV STA (11:30)
[2020-11-30 11:45] LABS: ALBUMIN 3.8 g/dL (3.5-5.0); ALKALINE PHOSPHATASE 84 U/L (38-126); BLOOD UREA NITROGEN 30 mg/dL (7-17); CHLORIDE 80 mmol/L (98-107); Calcium 8.9 mg/dL (8.4-10.2); Creatinine 1 0.97 mg/dL (0.52-1.04); EST GLOMERULAR FILTRATION RATE > 60.0 ML/MIN; Glucose 133 mg/dL (74-106); MAGNESIUM 2.5 mg/dL (1.6-2.3); NT PRO BNP 1020 pg/mL (0-900); SGOT/AST 40 U/L (14-36); SGPT/ALT 34 U/L (0-35); SODIUM 133 mmol/L (137-145)
[2020-11-30 11:53] LABS: ANION GAP 10.3 MEQ/L (5-15); Carbon Dioxide 45 mmol/L (22-30); Potassium 2.3 mmol/L (3.5-5.1)
[2020-11-30] MEDS ORDERED: Klor Con 10 MEQ PO ONE ×2 (11:58→12:14)
[2020-11-30] MEDS ORDERED: POTASSIUM CHLORIDE 20 mEq IN WATER 100ML 20 MEQ/100 ML BAG IV SCH (12:00)
[2020-11-30] MEDS ORDERED: ROCEPHIN 1 Gm-D5w 50 ml Bag** 1 G/50 ML IVPB IV ONE (12:14)
[2020-11-30] MEDS ORDERED: Zithromax 500 MG/ 250 ML NaCl Premix 500 MG/250 ML IVPB IV ONE (12:14)
[2020-11-30] MEDS ORDERED: Sodium Chloride 0.9% 1000 ML 1,000 ML ONE (12:30)
[2020-11-30 13:23] LABS: Slide Review 1 YES
[2020-11-30] MEDS ORDERED: TYLENOL 325 MG PO PRN (13:58)
[2020-11-30] MEDS ORDERED: MORPHINE SULFATE 2 MG INJ IV PRN (13:58)
[2020-11-30] MEDS ORDERED: Zofran 4 MG/2 ML VIAL IV PRN (13:58)
[2020-11-30] MEDS: DUONEB 0.5-3 MG/3 ml Neb IH SCH ×2 (14:25→21:20)
[2020-11-30] MEDS: ENOXAPARIN SODIUM SQ SCH (14:56)
[2020-11-30] MEDS: PROTONIX 40 MG IV IV SCH (14:56)
[2020-11-30] MEDS: solu-MEDROL 125 MG IV SCH ×2 (14:56→21:37)
[2020-11-30] MEDS ORDERED: ALBUTEROL SULFATE IH PRN (15:13)
[2020-11-30] MEDS ORDERED: Ventolin Hfa MDI IH PRN (15:13)
[2020-11-30] MEDS ORDERED: ULTRAM 50 MG PO PRN (15:13)
[2020-11-30] MEDS ORDERED: VENTOLIN COMMON CANISTER IH PRN (15:22)
--- NOTE | 2020-11-30 15:47 | CONS ---
Events noted. Chart reviewed. CONSULT DATE: 11/30/2020 HISTORY: Vi Pedraza is a 65 year old woman, well known to me with recent hospitalization, during which the patient was treated for chronic obstructive pulmonary disease exacerbation. She was discharged home last Saturday. Per verbal report this stay, the patient went to see Dr. Ardon today without oxygen and was noted to have significant loss in saturation. She was referred to the emergency room where she was noted to have electrolyte imbalance with hypokalemia, positive troponin and a new infiltrate on x-ray involving left upper lobe. The patient is being treated back on antibiotics. She denies chest pain. She has cough which is minimally productive. The patient otherwise looks significantly better and improved compared to last admission a week ago. PAST MEDICAL HISTORY: Positive chronic obstructive pulmonary disease, hypertension, coronary artery disease. PAST SURGICAL HISTORY: No recent surgery. PERSONAL AND SOCIAL HISTORY: She is a former smoker. MEDICATIONS: Medications are reviewed. ALLERGIES: NKDA. PHYSICAL EXAMINATION: A middle aged woman who appears comfortable, able to carry out good conversation. Heart rate is 80, blood pressure 160/104. Saturating 100% on nasal cannula. HEENT: Normocephalic. Oral exam limited. NECK: Supple. CVS: First and second heart sounds are normal, regular, rhythmic. RESPIRATORY: Shows diminished breath sounds, fairly clear. ABDOMEN: Soft. EXTREMITIES: No edema is noted. LABORATORY DATA AND TESTS: Sodium 133, potassium 2.3, chloride 80, bicarb 45, BUN 30, creatinine 0.97. BNP 1020. Bilirubin 2.1. Troponin 0.134. White count 7.4, hemoglobin 13.4, hematocrit 42, PLT 76,000. Chest x-ray noted. EKG reviewed. ASSESSMENT: This is a 65 year old woman admitted with: 1) New episode of p.o. care associated pneumonia. 2) Chronic obstructive pulmonary disease mild exacerbation. 3) Acute/chronic hypoxemia noncompliant with oxygen therapy. 4) Non-ST myocardial infarction. 5) Abnormal liver function test. 6) Obesity. 7) Nicotine addiction. RECOMMENDATIONS: 1) The patient will be under the care of Dr. Ardon. 2) I agree with antibiotics, bronchodilator. 3) Serial cardiac enzymes. 4) Correction of electrolytes. 5) Repeat chest x-ray in 48 hours. 6) Possible discharge with outpatient follow up. I will be available as needed. Thank you for allowing me to participate in the care of Vi Pedraza.
[2020-11-30] MEDS: Catapres 0.1 MG PO SCH ×2 (16:07→21:38)
[2020-11-30] MEDS: Zestril 20 MG PO SCH (16:07)
[2020-11-30] MEDS: Zocor 10MG PO SCH (16:10)
[2020-11-30] MEDS ORDERED: Lasix 40 MG/4 ML IV ONE (16:18)
[2020-11-30] MEDS: POTASSIUM CHLORIDE 20 mEq IN WATER 100ML 20 MEQ/100 ML BAG IV SCH ×2 (16:47→19:00)
[2020-11-30] MEDS: Klor Con 10 MEQ PO SCH (20:59)
[2020-11-30] MEDS: Advair Hfa 115/21 Common canister IH SCH (21:22)
[2020-11-30] MEDS: COREG 12.5 MG PO SCH (21:38)
[2020-11-30] MEDS: Cardizem CD 180 MG PO SCH (21:38)
[2020-11-30] MEDS ORDERED: CLONIDINE HCL 0.3 MG PO SCH (22:00)
[2020-12-01] MEDS: solu-MEDROL 125 MG IV SCH ×4 (00:07→17:59)
[2020-12-01] MEDS ORDERED: K-LYTE 25 MEQ PO ONE (00:16)
[2020-12-01] MEDS: POTASSIUM CHLORIDE 20 mEq IN WATER 100ML 20 MEQ/100 ML BAG IV SCH ×2 (00:42→02:57)
[2020-12-01 05:42] LABS: ALBUMIN 2.7 g/dL (3.5-5.0); ALKALINE PHOSPHATASE 57 U/L (38-126); BLOOD UREA NITROGEN 32 mg/dL (7-17); CHLORIDE 89 mmol/L (98-107); Creatinine 1 0.69 mg/dL (0.52-1.04); EST GLOMERULAR FILTRATION RATE > 60.0 ML/MIN; Glucose 149 mg/dL (74-106); SGOT/AST 25 U/L (14-36); SGPT/ALT 22 U/L (0-35); SODIUM 131 mmol/L (137-145); Total Protein 5.2 g/dL (6.3-8.2)
[2020-12-01 05:52] LABS: Carbon Dioxide 41 mmol/L (22-30)
[2020-12-01 05:55] LABS: Potassium 3.8 mmol/L (3.5-5.1)
[2020-12-01 05:57] LABS: ANION GAP 4.8 MEQ/L (5-15)
[2020-12-01] MEDS: Advair Hfa 115/21 Common canister IH SCH ×2 (06:24→19:39)
[2020-12-01] MEDS: DUONEB 0.5-3 MG/3 ml Neb IH SCH ×4 (06:24→19:39)
--- NOTE | 2020-12-01 06:34 | PCM.HP ---
History of Present Illness - Chief Complaint Chief Complaint: copd. chf. History of Present Illness: is a 65 year old female who was sent to ER from office yesterday, she fell and was hypoxic, was not on her oxygen. has consistent shortness of breath, cough and wheezing, no chest pain. - Review of Systems Constitutional: No Fever, No Chills Respiratory: Cough, Short Of Breath Cardiac: No Chest Pain, No Edema, No Syncope Abdominal/Gastrointestinal: No Abdominal Pain, No Nausea, No Vomiting, No Diarrhea All Other Systems: Reviewed and Negative Medications & Allergies Home Medications: Home Medication List Tramadol HCl 50 mg [Ultram 50 mg] 1 tab PO BID PRN PRN 01/13/14 [History Confirmed 11/30/20] Albuterol 8 gm Mdi Hfa [Ventolin Hfa MDI] 2 puffs IH Q4H PRN PRN 08/02/15 [History Confirmed 11/30/20] lisinopriL [Zestril 40 mg] 40 mg PO DAILY #30 tablet 08/03/15 [Rx Confirmed ] Clonidine HCl [Catapres] 0.3 mg PO TID 07/28/18 [History Confirmed 11/30/20] Atorvastatin Calcium [Lipitor] 40 mg PO DAILY 12/06/18 [History Confirmed 11/30/20] Aspirin EC 81 mg [Ecotrin 81 mg] 1 tab PO DAILY #0 04/04/20 [Rx Confirmed 11/30/20] Fluticasone/Umeclidin/Vilanter [Trelegy Ellipta 100-62.5-25] 1 inh IH DAILY 04/04/20 [History Confirmed 11/30/20] Albuterol Sulfate 1 amp IH QID PRN PRN 11/12/20 [History Confirmed 11/30/20] Carvedilol 12.5 mg [Coreg 12.5 mg] 12.5 mg PO BID 11/12/20 [History Confirmed 11/30/20] Chlorthalidone 25 mg PO DAILY 11/12/20 [History Confirmed 11/30/20] Prednisone 10 mg [Deltasone 10 mg] 10 mg PO UD 11/12/20 [History Confirmed 11/30/20] dilTIAZem HCl [Diltiazem 24Hr ER (Cd)] 180 mg PO BID 11/13/20 [History Confirmed 11/30/20] Furosemide 40 mg [Lasix 40 MG] 80 mg PO DAILY #30 tablet 11/25/20 [Rx Confirmed 11/30/20] Potassium Chloride 10 Meq Tab* [Klor Con 10 MEQ] 40 meq PO TID #90 tab 11/25/20 [Rx Confirmed 11/30/20] Prednisone 20 mg [Deltasone 20 mg] 60 mg PO QAM #35 tablet 11/25/20 [Rx Confirmed 11/30/20] Allergies/Adverse Reactions: Allergies Allergy/AdvReac Type Severity Reaction Status Date / Time No Known Drug Allergies Allergy Verified 11/30/20 15:50 - Past Medical History Past Medical History: Yes Neurological History: Migraines ENT History: No Pertinent History Cardiac History: Congestive Heart Failure, High Cholesterol, Hypertension Respiratory History: Asthma, CHF, COPD, Emphysema, Other Endocrine Medical History: No Pertinent History Musculoskelatal History: Arthritis GI Medical History: Gallbladder Disease History: No Pertinent History Pyscho-Social History: Anxiety Reproductive Disorders: No Pertinent History Comment: 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 - Female History Hx Last Menstrual Period: post Are you now?: No - Past Surgical History Past Surgical History: Yes Neuro Surgical History: No Pertinent History Cardiac History: No Pertinent History Respiratory Surgery: No Pertinent History GI Surgical History: Cholecystectomy Genitourinary Surgical Hx: No Pertinent History Musculskeletal Surgical Hx: Orthopedic Surgery Female Surgical History: Hysterectomy Other Surgical History: right knee replacement, screw in pelvis, misha in left leg - Social History Smoking Status: Current every day smoker How long have you smoked: 47 Exposure to second hand smoke: Yes Alcohol: None Drug Use: none - Physical Exam Vital Signs: Vital Signs - 24 hr Temp Pulse Resp BP Pulse Ox 12/01/20 06:26 56 L 18 92 L 12/01/20 03:59 97.9 F 56 L 20 105/65 93 L 11/30/20 21:20 65 17 94 L 11/30/20 20:00 97.9 F 72 22 128/67 90 L 11/30/20 14:29 98.1 F 85 20 176/96 92 L 01/27/21 14:25 85 20 92 L 11/30/20 14:00 98.1 F 84 19 176/96 93 L 11/30/20 13:54 78 16 156/104 98 11/30/20 12:49 95 11/30/20 12:45 88 19 177/93 11/30/20 12:00 75 22 177/88 97 11/30/20 10:49 22 97 11/30/20 10:41 100.3 F 99 H 22 168/114 95 Oxygen-Last 24 hours Oxygen Flowrate (L/min)-RT 3 General Appearance: no apparent distress Neurologic Exam: alert, oriented x 3, cooperative Respiratory Exam: prolonged expirations, wheezing Cardiovascular Exam: regular rate/rhythm, normal heart sounds, normal peripheral pulses Gastrointestinal/Abdomen Exam: soft, normal bowel sounds, No tenderness, No mass Extremity Exam: normal inspection, normal range of motion, pelvis stable Skin Exam: normal color, warm, dry, No rash Results - Labs Lab/Micro Results: Lab Results-Last 24 Hours 11/30/20 11/30/20 11/30/20 Range/Units 10:58 11:11 11:11 WBC 7.4 (4.0-10.5) K/mm3 RBC 4.89 (4.1-5.4) M/mm3 Hgb 13.4 (12.0-16.0) gm/dl Hct 42.9 (35-47) % MCV 87.7 (78-100) fl MCH 27.4 (26-32) pg MCHC 31.2 L (32-36) g/dl RDW 13.7 (11.5-14.0) % Plt Count 76 L (150-450) K/mm3 MPV 10.6 (7.5-11.0) fl Gran % 93.3 H (36.0-66.0) % Eos # (Auto) 0 (0-0.5) Absolute Lymphs (auto) 0.30 L (1.0-4.6) Absolute Monos (auto) 0.19 (0.0-1.3) Lymphocytes % 4.0 L (24.0-44.0) % Monocytes % 2.6 (0.0-12.0) % Eosinophils % 0.0 (0.00-5.0) % Basophils % 0.1 (0.0-0.4) % Absolute Granulocytes 6.93 H (1.4-6.9) Basophils # 0.01 (0-0.4) Puncture Site LEFT BRACHIAL pCO2 51 H (35-45) mmHg pO2 97 (75-100) mmHg Base Excess 22.6 H (-2.0-2.0) O2 Saturation 94.8 (94-100) g/dF ABG pH 7.58 H* (7.35-7.45) ABG HCO3 47.8 H* (22-28) ABG O2 Sat (Measured) 98.4 (95-100) % Hiro Test NOT APPLICABLE A-a Gradient 67 a/A Ratio 0.59 Hemoglobin 13.0 Carboxyhemoglobin 2.6 (0.0-6.9) % THgb Methemoglobin 1.1 L (1.4-1.5) % Potassium 2.2 L* 2.3 L* (3.5-5.1) Temperature 37.0 C POC O2 Flow Rate 32 % Sodium 133 L (137-145) mmol/L Chloride 80 L (98-107) mmol/L Carbon Dioxide 45 H (22-30) mmol/L Anion Gap 10.3 (5-15) MEQ/L BUN 30 H (7-17) mg/dL Creatinine 0.97 (0.52-1.04) mg/dL Estimated GFR > 60.0 ML/MIN Glucose 133 H (74-106) mg/dL POC Glucometer (74 to 106) mg/dL Lactic Acid 1.1 (0.4-2.0) Calcium 8.9 (8.4-10.2) mg/dL Magnesium 2.5 H (1.6-2.3) mg/dL Total Bilirubin 2.10 H (0.2-1.3) mg/dL AST 40 H (14-36) U/L ALT 34 (0-35) U/L Alkaline Phosphatase 84 (38-126) U/L Troponin I (0.000-0.034) ng/mL NT-Pro-B Natriuret Pep 1020 H (0-900) pg/mL Serum Total Protein 7.0 (6.3-8.2) g/dL Albumin 3.8 (3.5-5.0) g/dL Slides for Path Review YES 11/30/20 11/30/20 11/30/20 Range/Units 11:11 14:15 16:13 WBC (4.0-10.5) K/mm3 RBC (4.1-5.4) M/mm3 Hgb (12.0-16.0) gm/dl Hct (35-47) % MCV (78-100) fl MCH (26-32) pg MCHC (32-36) g/dl RDW (11.5-14.0) % Plt Count (150-450) K/mm3 MPV (7.5-11.0) fl Gran % (36.0-66.0) % Eos # (Auto) (0-0.5) Absolute Lymphs (auto) (1.0-4.6) Absolute Monos (auto) (0.0-1.3) Lymphocytes % (24.0-44.0) % Monocytes % (0.0-12.0) % Eosinophils % (0.00-5.0) % Basophils % (0.0-0.4) % Absolute Granulocytes (1.4-6.9) Basophils # (0-0.4) Puncture Site pCO2 (35-45) mmHg pO2 (75-100) mmHg Base Excess (-2.0-2.0) O2 Saturation (94-100) g/dF ABG pH (7.35-7.45) ABG HCO3 (22-28) ABG O2 Sat (Measured) (95-100) % Hiro Test A-a Gradient a/A Ratio Hemoglobin Carboxyhemoglobin (0.0-6.9) % THgb Methemoglobin (1.4-1.5) % Potassium (3.5-5.1) Temperature C POC O2 Flow Rate % Sodium (137-145) mmol/L Chloride (98-107) mmol/L Carbon Dioxide (22-30) mmol/L Anion Gap (5-15) MEQ/L BUN (7-17) mg/dL Creatinine (0.52-1.04) mg/dL Estimated GFR ML/MIN Glucose (74-106) mg/dL POC Glucometer 137 H (74 to 106) mg/dL Lactic Acid (0.4-2.0) Calcium (8.4-10.2) mg/dL Magnesium (1.6-2.3) mg/dL Total Bilirubin (0.2-1.3) mg/dL AST (14-36) U/L ALT (0-35) U/L Alkaline Phosphatase (38-126) U/L Troponin I 0.134 H* 0.128 H* (0.000-0.034) ng/mL NT-Pro-B Natriuret Pep (0-900) pg/mL Serum Total Protein (6.3-8.2) g/dL Albumin (3.5-5.0) g/dL Slides for Path Review 11/30/20 11/30/20 11/30/20 Range/Units 16:45 16:45 20:15 WBC (4.0-10.5) K/mm3 RBC (4.1-5.4) M/mm3 Hgb (12.0-16.0) gm/dl Hct (35-47) % MCV (78-100) fl MCH (26-32) pg MCHC (32-36) g/dl RDW (11.5-14.0) % Plt Count (150-450) K/mm3 MPV (7.5-11.0) fl Gran % (36.0-66.0) % Eos # (Auto) (0-0.5) Absolute Lymphs (auto) (1.0-4.6) Absolute Monos (auto) (0.0-1.3) Lymphocytes % (24.0-44.0) % Monocytes % (0.0-12.0) % Eosinophils % (0.00-5.0) % Basophils % (0.0-0.4) % Absolute Granulocytes (1.4-6.9) Basophils # (0-0.4) Puncture Site pCO2 (35-45) mmHg pO2 (75-100) mmHg Base Excess (-2.0-2.0) O2 Saturation (94-100) g/dF ABG pH (7.35-7.45) ABG HCO3 (22-28) ABG O2 Sat (Measured) (95-100) % Hiro Test A-a Gradient a/A Ratio Hemoglobin Carboxyhemoglobin (0.0-6.9) % THgb Methemoglobin (1.4-1.5) % Potassium 2.8 L* D (3.5-5.1) Temperature C POC O2 Flow Rate % Sodium (137-145) mmol/L Chloride (98-107) mmol/L Carbon Dioxide (22-30) mmol/L Anion Gap (5-15) MEQ/L BUN (7-17) mg/dL Creatinine (0.52-1.04) mg/dL Estimated GFR ML/MIN Glucose (74-106) mg/dL POC Glucometer (74 to 106) mg/dL Lactic Acid (0.4-2.0) Calcium (8.4-10.2) mg/dL Magnesium (1.6-2.3) mg/dL Total Bilirubin (0.2-1.3) mg/dL AST (14-36) U/L ALT (0-35) U/L Alkaline Phosphatase (38-126) U/L Troponin I 0.101 H* 0.083 H* (0.000-0.034) ng/mL NT-Pro-B Natriuret Pep (0-900) pg/mL Serum Total Protein (6.3-8.2) g/dL Albumin (3.5-5.0) g/dL Slides for Path Review 11/30/20 11/30/20 12/01/20 Range/Units 23:25 23:25 04:43 WBC (4.0-10.5) K/mm3 RBC (4.1-5.4) M/mm3 Hgb (12.0-16.0) gm/dl Hct (35-47) % MCV (78-100) fl MCH (26-32) pg MCHC (32-36) g/dl RDW (11.5-14.0) % Plt Count (150-450) K/mm3 MPV (7.5-11.0) fl Gran % (36.0-66.0) % Eos # (Auto) (0-0.5) Absolute Lymphs (auto) (1.0-4.6) Absolute Monos (auto) (0.0-1.3) Lymphocytes % (24.0-44.0) % Monocytes % (0.0-12.0) % Eosinophils % (0.00-5.0) % Basophils % (0.0-0.4) % Absolute Granulocytes (1.4-6.9) Basophils # (0-0.4) Puncture Site pCO2 (35-45) mmHg pO2 (75-100) mmHg Base Excess (-2.0-2.0) O2 Saturation (94-100) g/dF ABG pH (7.35-7.45) ABG HCO3 (22-28) ABG O2 Sat (Measured) (95-100) % Hiro Test A-a Gradient a/A Ratio Hemoglobin Carboxyhemoglobin (0.0-6.9) % THgb Methemoglobin (1.4-1.5) % Potassium 2.8 L* 3.8 D (3.5-5.1) Temperature C POC O2 Flow Rate % Sodium 131 L (137-145) mmol/L Chloride 89 L (98-107) mmol/L Carbon Dioxide 41 H (22-30) mmol/L Anion Gap 4.8 L (5-15) MEQ/L BUN 32 H (7-17) mg/dL Creatinine 0.69 (0.52-1.04) mg/dL Estimated GFR > 60.0 ML/MIN Glucose 149 H (74-106) mg/dL POC Glucometer (74 to 106) mg/dL Lactic Acid (0.4-2.0) Calcium 8.0 L (8.4-10.2) mg/dL Magnesium (1.6-2.3) mg/dL Total Bilirubin 0.90 (0.2-1.3) mg/dL AST 25 (14-36) U/L ALT 22 (0-35) U/L Alkaline Phosphatase 57 (38-126) U/L Troponin I 0.069 H* (0.000-0.034) ng/mL NT-Pro-B Natriuret Pep (0-900) pg/mL Serum Total Protein 5.2 L (6.3-8.2) g/dL Albumin 2.7 L (3.5-5.0) g/dL Slides for Path Review Accuchecks Date 11/30/20 Time 16:31 - Radiology Impressions Radiology Exams & Impressions: Radiology Procedures Category Date Time Status CHEST 1 VIEW (PORTABLE) Stat Exams 11/30/20 10:47 Completed - Other Procedures and Tests Respiratory Therapy 11/30/20 14:23 Respiratory Therapy Assessment DAILY 11/30/20 14:24 Oxygen NASAL CANNULA 3 lpm Assessment/Plan (1) Acute exacerbation of chronic obstructive pulmonary disease (COPD) Current Visit: Yes Status: Acute Assessment & Plan: continue IV sterois, nebs and IV rocephin/zithromax Code(s): J44.1 - CHRONIC OBSTRUCTIVE PULMONARY DISEASE W (ACUTE) EXACERBATION (2) Pneumonia Current Visit: Yes Status: Acute Qualifiers: Pneumonia type: due to unspecified organism Laterality: left Lung location: unspecified part of lung Qualified Code(s): J18.9 - Pneumonia, unspecified organism Code(s): J18.9 - PNEUMONIA, UNSPECIFIED ORGANISM (3) Chronic hypoxemic respiratory failure Current Visit: No Status: Chronic
[2020-12-01 07:23] LABS: Hematocrit 34.1 % (35-47); Hemoglobin 10.7 gm/dl (12.0-16.0); Mean Cell Volume 88.3 fl (78-100); Mean Corpuscular Hemoglobin 27.7 pg (26-32); Mean Corpuscular Hgb Concent. 31.4 g/dl (32-36); Mean Platelet Volume 10.5 fl (7.5-11.0); Platelet Count 53 K/mm3 (150-450); Red Blood Count 3.86 M/mm3 (4.1-5.4); Red Cell Distribution Width 13.3 % (11.5-14.0); White Blood Count 5.4 K/mm3 (4.0-10.5)
[2020-12-01] MEDS: PROTONIX 40 MG IV IV SCH (09:15)
[2020-12-01] MEDS: HUMALOG SQ PRN ×4 (09:16→16:54)
[2020-12-01] MEDS: ROCEPHIN 1 Gm-D5w 50 ml Bag** 1 G/50 ML IVPB IV SCH (09:16)
[2020-12-01] MEDS: Zocor 10MG PO SCH (09:16)
[2020-12-01] MEDS: Cardizem CD 180 MG PO SCH ×2 (09:17→21:57)
[2020-12-01] MEDS: Zestril 20 MG PO SCH (09:17)
[2020-12-01] MEDS: ECOTRIN 81 MG PO SCH (09:17)
[2020-12-01] MEDS: Catapres 0.1 MG PO SCH ×3 (09:17→21:55)
[2020-12-01] MEDS: COREG 12.5 MG PO SCH ×2 (09:17→21:57)
[2020-12-01] MEDS: Klor Con 10 MEQ PO SCH ×3 (09:17→21:57)
[2020-12-01] MEDS: ENOXAPARIN SODIUM SQ SCH (09:18)
[2020-12-01 09:23] LABS: ANISOCYTOSIS 1+; BAND 1 % (0.0-2.0); Lymphocytes 5 % (24-44); Monocyte 2 % (0.0-12.0); Neutrophils 92 % (36.0-66.0); Platelet Estimate DECREASED (NORMAL); Total Cells Counted 100; Toxic Granulation 1+
[2020-12-01] MEDS ORDERED: LIPITOR 40MG PO SCH (10:00)
[2020-12-01] MEDS ORDERED: NON-FORMULARY ITEM (Lisinopril [Zestril 40 Mg] 40 MG) PO SCH (10:00)
[2020-12-01] MEDS: Zithromax 500 MG/ 250 ML NaCl Premix 500 MG/250 ML IVPB IV SCH (10:11)
[2020-12-02] MEDS: solu-MEDROL 125 MG IV SCH ×5 (00:58→23:44)
[2020-12-02] MEDS: DUONEB 0.5-3 MG/3 ml Neb IH SCH ×4 (06:55→19:42)
[2020-12-02] MEDS: Advair Hfa 115/21 Common canister IH SCH ×2 (06:55→19:44)
--- NOTE | 2020-12-02 08:26 | PCM.NOTE ---
Date and Time: 12/02/20822 Subjective Assessment: patient still feels poorly, currently on 4L oxygen via nasal cannula and stable. feels weak and unsafe to go home Objective Exam General Appearance: no apparent distress, alert Skin Exam: normal color, warm, dry Respiratory Exam: accessory muscle use, wheezing, No respiratory distress Cardiovascular Exam: regular rate/rhythm, normal heart sounds Gastrointestinal/Abdomen Exam: soft, No tenderness, No mass Extremity Exam: normal inspection, normal range of motion OBJECTIVE DATA Vital Signs: Vital Signs - 24 hr Temp Pulse Resp BP Pulse Ox 12/02/20 07:06 58 L 18 92 L 12/02/20 04:00 97.9 F 61 14 153/79 95 12/02/20 00:00 98.0 F 63 16 111/62 90 L 12/01/20 19:42 67 14 91 L 12/01/20 19:28 97.7 F 62 12 122/54 93 L 12/01/20 16:00 97.5 F 59 L 13 118/64 92 L 12/01/20 14:30 60 18 95 12/01/20 12:00 97.6 F 68 14 108/59 91 L 12/01/20 10:38 55 L 20 94 L Oxygen-Last 24 hours Oxygen Flowrate (L/min)-RT 4 Pain Assessment - Last Documented Pain Intensity 0 Intake and Output: Intake & Output 11/29/20 11/30/20 12/01/20 12/02/20 11:59 11:59 11:59 11:59 Intake Total 2237 960 Output Total 400 200 Balance 1837 760 Weight 77.111 kg 78.3 kg Lab Results: Lab Results-Last 24 Hours 12/01/20 12/01/20 12/01/20 Range/Units 04:43 11:27 16:01 Segmented Neutrophils 92 H (36.0-66.0) % Band Neutrophils 1 (0.0-2.0) % Lymphocytes (Manual) 5 L (24-44) % Monocytes (Manual) 2 (0.0-12.0) % Toxic Granulation 1+ Platelet Estimate DECREASED (NORMAL) RBC Morphology ABNORMAL Anisocytosis 1+ POC Glucometer 252 H 166 H (74 to 106) mg/dL 12/01/20 12/02/20 Range/Units 20:20 07:40 Segmented Neutrophils (36.0-66.0) % Band Neutrophils (0.0-2.0) % Lymphocytes (Manual) (24-44) % Monocytes (Manual) (0.0-12.0) % Toxic Granulation Platelet Estimate (NORMAL) RBC Morphology Anisocytosis POC Glucometer 201 H 156 H (74 to 106) mg/dL Radiology Exams: Radiology Procedures Category Date Time Status CHEST 1 VIEW (PORTABLE) Stat Exams 11/30/20 10:47 Completed Assessment/Plan (1) Acute exacerbation of chronic obstructive pulmonary disease (COPD) Current Visit: Yes Status: Acute Assessment & Plan: continue IV solu medrol, rocephin and zithromax and nebs. seems near baseline, will likely need consideration for home health vs ECF. consult PT Code(s): J44.1 - CHRONIC OBSTRUCTIVE PULMONARY DISEASE W (ACUTE) EXACERBATION (2) Pneumonia Current Visit: Yes Status: Acute Qualifiers: Pneumonia type: due to unspecified organism Laterality: left Lung location: unspecified part of lung Qualified Code(s): J18.9 - Pneumonia, unspecified organism Code(s): J18.9 - PNEUMONIA, UNSPECIFIED ORGANISM (3) Chronic hypoxemic respiratory failure Current Visit: No Status: Chronic
[2020-12-02] MEDS: ROCEPHIN 1 Gm-D5w 50 ml Bag** 1 G/50 ML IVPB IV SCH (09:41)
[2020-12-02] MEDS: PROTONIX 40 MG IV IV SCH (09:41)
[2020-12-02] MEDS: Zestril 20 MG PO SCH (09:42)
[2020-12-02] MEDS: ENOXAPARIN SODIUM SQ SCH (09:42)
[2020-12-02] MEDS: COREG 12.5 MG PO SCH ×2 (09:42→22:25)
[2020-12-02] MEDS: Cardizem CD 180 MG PO SCH ×2 (09:42→22:25)
[2020-12-02] MEDS: Klor Con 10 MEQ PO SCH ×3 (09:42→22:25)
[2020-12-02] MEDS: Zocor 10MG PO SCH (09:42)
[2020-12-02] MEDS: ECOTRIN 81 MG PO SCH (09:42)
[2020-12-02] MEDS: Catapres 0.1 MG PO SCH ×3 (09:42→22:25)
[2020-12-02] MEDS: Zithromax 500 MG/ 250 ML NaCl Premix 500 MG/250 ML IVPB IV SCH (11:00)
[2020-12-02] MEDS: HUMALOG SQ PRN ×2 (12:35→23:43)
[2020-12-03] MEDS: solu-MEDROL 125 MG IV SCH ×4 (06:04→23:09)
[2020-12-03 06:25] LABS: Hematocrit 32.9 % (35-47); Hemoglobin 10.2 gm/dl (12.0-16.0); Mean Cell Volume 88.4 fl (78-100); Mean Corpuscular Hemoglobin 27.4 pg (26-32); Mean Platelet Volume 11.2 fl (7.5-11.0); Platelet Count 64 K/mm3 (150-450); Red Blood Count 3.72 M/mm3 (4.1-5.4); Red Cell Distribution Width 13.7 % (11.5-14.0); White Blood Count 7.1 K/mm3 (4.0-10.5)
[2020-12-03 06:45] LABS: ALBUMIN 2.7 g/dL (3.5-5.0); ALKALINE PHOSPHATASE 64 U/L (38-126); ANION GAP 7.9 MEQ/L (5-15); BLOOD UREA NITROGEN 34 mg/dL (7-17); CHLORIDE 97 mmol/L (98-107); Calcium 8.2 mg/dL (8.4-10.2); Carbon Dioxide 33 mmol/L (22-30); Creatinine 1 0.75 mg/dL (0.52-1.04); EST GLOMERULAR FILTRATION RATE > 60.0 ML/MIN; Glucose 149 mg/dL (74-106); SGOT/AST 21 U/L (14-36); SGPT/ALT 20 U/L (0-35); SODIUM 133 mmol/L (137-145); Total Protein 5.4 g/dL (6.3-8.2)
[2020-12-03] MEDS: Advair Hfa 115/21 Common canister IH SCH ×2 (06:49→18:43)
[2020-12-03] MEDS: DUONEB 0.5-3 MG/3 ml Neb IH SCH ×4 (06:49→18:43)
[2020-12-03 07:20] LABS: Potassium 5.3 mmol/L (3.5-5.1)
[2020-12-03 07:52] LABS: Lymphocytes 1 % (24-44); Neutrophils 99 % (36.0-66.0); Total Cells Counted 100
[2020-12-03 07:53] LABS: ANISOCYTOSIS 1+; Platelet Estimate DECREASED (NORMAL); Poikilocytosis 1+
[2020-12-03] MEDS: PROTONIX 40 MG IV IV SCH (09:39)
[2020-12-03] MEDS: ROCEPHIN 1 Gm-D5w 50 ml Bag** 1 G/50 ML IVPB IV SCH (09:40)
[2020-12-03] MEDS: Catapres 0.1 MG PO SCH ×3 (09:46→21:23)
[2020-12-03] MEDS: Zocor 10MG PO SCH (09:46)
[2020-12-03] MEDS: Cardizem CD 180 MG PO SCH ×2 (09:47→21:23)
[2020-12-03] MEDS: ENOXAPARIN SODIUM SQ SCH (09:47)
[2020-12-03] MEDS: COREG 12.5 MG PO SCH ×2 (09:47→21:23)
[2020-12-03] MEDS: ECOTRIN 81 MG PO SCH (09:47)
[2020-12-03] MEDS: Klor Con 10 MEQ PO SCH (09:47)
[2020-12-03] MEDS: Zestril 20 MG PO SCH (09:47)
[2020-12-03] MEDS: HUMALOG SQ PRN ×3 (09:48→17:33)
[2020-12-03] MEDS: Zithromax 500 MG/ 250 ML NaCl Premix 500 MG/250 ML IVPB IV SCH (10:49)
--- NOTE | 2020-12-03 16:28 | PCM.NOTE ---
Date and Time: 12/03/201626 Subjective Assessment: doing ok - Review of Systems Constitutional: No Fever, No Chills Eyes: No Symptoms Ears, Nose, & Throat: No Symptoms Respiratory: No Cough, No Short Of Breath Cardiac: No Chest Pain, No Edema, No Syncope Abdominal/Gastrointestinal: No Abdominal Pain, No Nausea, No Vomiting, No Diarrhea Genitourinary Symptoms: No Dysuria Musculoskeletal: No Back Pain, No Neck Pain Skin: No Rash Neurological: No Dizziness, No Focal Weakness, No Sensory Changes Psychological: No Symptoms Endocrine: No Symptoms Hematologic/Lymphatic: No Symptoms Immunological/Allergic: No Symptoms Objective Exam General Appearance: no apparent distress, alert Neurologic Exam: alert, oriented x 3, cooperative, normal mood/affect, nml cerebellar function, sensation nml, No motor deficits Skin Exam: normal color, warm, dry Eye Exam: PERRL, EOMI, eyes nml inspection Ears, Nose, Throat Exam: normal ENT inspection, pharynx normal, moist mucous membranes Neck Exam: normal inspection, non-tender, supple, full range of motion Respiratory Exam: normal breath sounds, lungs clear, No respiratory distress Cardiovascular Exam: regular rate/rhythm, normal heart sounds Gastrointestinal/Abdomen Exam: soft, No tenderness, No mass Extremity Exam: normal inspection, normal range of motion Back Exam: normal inspection, normal range of motion, No CVA tenderness, No vertebral tenderness Pelvic Exam: deferred Rectal Exam: deferred OBJECTIVE DATA Vital Signs: Vital Signs - 24 hr Temp Pulse Resp BP Pulse Ox 12/03/20 14:50 78 18 92 L 12/03/20 12:00 97.9 F 82 18 105/62 86 L 12/03/20 10:31 74 20 90 L 12/03/20 07:21 99.1 F 72 18 113/91 88 L 12/03/20 06:55 69 20 88 L 12/03/20 04:00 98.1 F 68 20 119/74 95 12/03/20 00:00 97.9 F 76 22 137/62 91 L 12/02/20 21:53 75 24 85 L 12/02/20 20:00 97.7 F 73 21 135/66 91 L Oxygen-Last 24 hours Oxygen Flowrate (L/min)-RT 5 Oxygen Flowrate (L/min)-RT 5 Pain Assessment - Last Documented Pain Intensity 0 Intake and Output: Intake & Output 12/01/20 12/02/20 12/03/20 12/04/20 11:59 11:59 11:59 11:59 Intake Total 2237 960 850 120 Output Total 400 200 200 Balance 1837 760 650 120 Weight 78.3 kg 82.5 kg 82 kg Lab Results: Lab Results-Last 24 Hours 12/02/20 12/03/20 12/03/20 Range/Units 20:59 05:00 05:00 WBC 7.1 (4.0-10.5) K/mm3 RBC 3.72 L (4.1-5.4) M/mm3 Hgb 10.2 L (12.0-16.0) gm/dl Hct 32.9 L (35-47) % MCV 88.4 (78-100) fl MCH 27.4 (26-32) pg MCHC 31.0 L (32-36) g/dl RDW 13.7 (11.5-14.0) % Plt Count 64 L (150-450) K/mm3 MPV 11.2 H (7.5-11.0) fl Segmented Neutrophils 99 H (36.0-66.0) % Lymphocytes (Manual) 1 L (24-44) % Platelet Estimate DECREASED (NORMAL) RBC Morphology ABNORMAL Poikilocytosis 1+ Anisocytosis 1+ Sodium 133 L (137-145) mmol/L Potassium 5.3 H D (3.5-5.1) mmol/L Chloride 97 L (98-107) mmol/L Carbon Dioxide 33 H (22-30) mmol/L Anion Gap 7.9 (5-15) MEQ/L BUN 34 H (7-17) mg/dL Creatinine 0.75 (0.52-1.04) mg/dL Estimated GFR > 60.0 ML/MIN Glucose 149 H (74-106) mg/dL POC Glucometer 235 H (74 to 106) mg/dL Calcium 8.2 L (8.4-10.2) mg/dL Total Bilirubin 0.50 (0.2-1.3) mg/dL AST 21 (14-36) U/L ALT 20 (0-35) U/L Alkaline Phosphatase 64 (38-126) U/L Serum Total Protein 5.4 L (6.3-8.2) g/dL Albumin 2.7 L (3.5-5.0) g/dL 12/03/20 12/03/20 Range/Units 06:55 11:33 WBC (4.0-10.5) K/mm3 RBC (4.1-5.4) M/mm3 Hgb (12.0-16.0) gm/dl Hct (35-47) % MCV (78-100) fl MCH (26-32) pg MCHC (32-36) g/dl RDW (11.5-14.0) % Plt Count (150-450) K/mm3 MPV (7.5-11.0) fl Segmented Neutrophils (36.0-66.0) % Lymphocytes (Manual) (24-44) % Platelet Estimate (NORMAL) RBC Morphology Poikilocytosis Anisocytosis Sodium (137-145) mmol/L Potassium (3.5-5.1) mmol/L Chloride (98-107) mmol/L Carbon Dioxide (22-30) mmol/L Anion Gap (5-15) MEQ/L BUN (7-17) mg/dL Creatinine (0.52-1.04) mg/dL Estimated GFR ML/MIN Glucose (74-106) mg/dL POC Glucometer 164 H 257 H (74 to 106) mg/dL Calcium (8.4-10.2) mg/dL Total Bilirubin (0.2-1.3) mg/dL AST (14-36) U/L ALT (0-35) U/L Alkaline Phosphatase (38-126) U/L Serum Total Protein (6.3-8.2) g/dL Albumin (3.5-5.0) g/dL Multi-Disciplinary Progress Notes: Multi-Disciplinary Progress Notes 12/02/20 19:02 Case Management Note by Janeth Francis PATIENT WAS ACCEPTED TO [facility] Initialized on 12/02/20 19:02 - END OF NOTE Assessment/Plan (1) Acute exacerbation of chronic obstructive pulmonary disease (COPD) Current Visit: Yes Status: Acute Assessment & Plan: Chief Complaint Diagnosis EXAC COPD, CHF, PNEUMONIA Allergies Allergy/AdvReac Type Severity Reaction Status Date / Time No Known Drug Allergies Allergy Verified 11/30/20 15:50 Vital Signs (Last 24 hours) Temp Pulse Resp BP Pulse Ox 12/03/20 14:50 78 18 92 L 12/03/20 12:00 97.9 F 82 18 105/62 86 L 12/03/20 10:31 74 20 90 L 12/03/20 07:21 99.1 F 72 18 113/91 88 L 12/03/20 06:55 69 20 88 L 12/03/20 04:00 98.1 F 68 20 119/74 95 12/03/20 00:00 97.9 F 76 22 137/62 91 L 12/02/20 21:53 75 24 85 L 12/02/20 20:00 97.7 F 73 21 135/66 91 L Current Medications Generic Name Dose Route Start Last Admin Trade Name Freq PRN Reason Stop Dose Admin Acetaminophen 650 mg 11/30/20 13:58 Tylenol 325 Mg PO 12/30/20 13:57 Q4H PRN PRN PAIN AND/OR FEVER Albuterol Sulfate 2 puff 11/30/20 15:22 Ventolin Common Canister IH 12/30/20 15:21 Q4H PRN PRN SHORTNESS OF BREATH Albuterol/Ipratropium 3 ml 11/30/20 15:00 12/03/20 14:48 Duoneb 0.5-3 Mg/3 Ml Neb IH 12/30/20 14:59 3 ml QIDRT CARLOS ENRIQUE Administration Aspirin 81 mg 12/01/20 10:00 12/03/20 09:47 Ecotrin 81 Mg PO 12/31/20 09:59 81 mg DAILY CARLOS ENRIQUE Administration Carvedilol 12.5 mg 11/30/20 22:00 12/03/20 09:47 Coreg 12.5 Mg PO 12/30/20 21:59 12.5 mg BID CARLOS ENRIQUE Administration Clonidine 0.3 mg 11/30/20 16:00 12/03/20 15:32 Catapres 0.1 Mg PO 12/30/20 15:59 0.3 mg TID CARLOS ENRIQUE Administration Diltiazem HCl 180 mg 11/30/20 22:00 12/03/20 09:47 Cardizem Cd 180 Mg PO 12/30/20 21:59 180 mg BID CARLOS ENRIQUE Administration Enoxaparin Sodium 40 mg 11/30/20 15:00 12/03/20 09:47 Enoxaparin Sodium SQ 12/30/20 14:59 40 mg DAILY CARLOS ENRIQUE Administration Azithromycin 500 mg in 250 mls @ 250 mls/hr 12/01/20 10:00 12/03/20 10:49 Zithromax 500 Mg/ 250 Ml Nacl Premix IV 12/31/20 09:59 250 mls/hr Q24H10 CARLOS ENRIQUE Administration Ceftriaxone Sodium/Dextrose 1 g in 50 mls @ 100 mls/hr 12/01/20 10:00 12/03/20 09:40 Rocephin 1 Gm-D5w 50 Ml Bag IV 12/31/20 09:59 100 mls/hr Q24H10 CARLOS ENRIQUE Administration Insulin Human Lispro 0 unit 11/30/20 13:58 12/03/20 13:02 Humalog SQ 12/30/20 13:57 7 unit UD PRN Administration HYPERGLYCEMIA Lisinopril 40 mg 11/30/20 16:00 12/03/20 09:47 Zestril 20 Mg PO 12/30/20 15:59 40 mg DAILY CARLOS ENRIQUE Administration Methylprednisolone Sodium Succinate 80 mg 11/30/20 14:00 12/03/20 13:02 Solu-Medrol 125 Mg IV 12/30/20 13:59 80 mg Q6HT CARLOS ENRIQUE Administration Morphine Sulfate 2 mg 11/30/20 13:58 Morphine Sulfate 2 Mg Inj IV 12/05/20 13:57 Q4H PRN PRN PAIN Ondansetron HCl 4 mg 11/30/20 13:58 Zofran 4 Mg/2 Ml Vial IV 12/30/20 13:57 Q6H PRN PRN NAUSEA/VOMITING Pantoprazole Sodium 40 mg 11/30/20 15:00 12/03/20 09:39 Protonix 40 Mg Iv IV 12/30/20 14:59 40 mg Q24H10 CARLOS ENRIQUE Administration Potassium Chloride 40 meq 11/30/20 22:00 12/03/20 09:47 Klor Con 10 Meq PO 12/30/20 21:59 40 meq TID CARLOS ENRIQUE Administration Fluticasone/Salmeterol 2 puff 11/30/20 19:00 12/03/20 06:49 Advair Hfa 115/21 Common Canister* IH 12/30/20 18:59 2 puff BIDRT CARLOS ENRIQUE Administration Simvastatin 10 mg 11/30/20 16:00 12/03/20 09:46 Zocor 10mg PO 12/30/20 15:59 10 mg DAILY CARLOS ENRIQUE Administration Tramadol HCl 50 mg 11/30/20 15:13 Ultram 50 Mg PO 12/30/20 15:12 BID PRN PRN PAIN Discontinued Medications Generic Name Dose Route Start Last Admin Trade Name Freq PRN Reason Stop Dose Admin Aspirin 324 mg 11/30/20 10:48 11/30/20 11:04 Baby Aspirin 81 Mg Chew PO 11/30/20 10:49 324 mg STAT ONE Administration Furosemide 40 mg 11/30/20 16:18 11/30/20 19:38 Lasix 40 Mg/4 Ml IV 11/30/20 16:19 Not Given STAT ONE Azithromycin 500 mg in 250 mls @ 250 mls/hr 11/30/20 11:30 11/30/20 13:42 Zithromax 500 Mg/ 250 Ml Nacl Premix IV 11/30/20 12:29 Infused STAT STA Infusion Ceftriaxone Sodium/Dextrose 1 g in 50 mls @ 100 mls/hr 11/30/20 11:30 11/30/20 12:46 Rocephin 1 Gm-D5w 50 Ml Bag IV 11/30/20 11:59 Infused STAT STA Infusion Potassium Chloride 20 meq in 100 mls @ 50 mls/hr 11/30/20 12:00 11/30/20 12:16 Potassium Chloride 20 Meq In Water 100ml IV 11/30/20 15:59 50 mls/hr Q2H CARLOS ENRIQUE Administration Azithromycin Confirm 11/30/20 12:14 Zithromax 500 Mg/ 250 Ml Nacl Premix Administered 11/30/20 12:15 Dose 500 mg in 250 mls @ ud IV .STK-MED ONE Ceftriaxone Sodium/Dextrose Confirm 11/30/20 12:14 Rocephin 1 Gm-D5w 50 Ml Bag Administered 11/30/20 12:15 Dose 1 g in 50 mls @ ud IV .STK-MED ONE Sodium Chloride Confirm 11/30/20 12:30 Sodium Chloride 0.9% 1000 Ml Administered 11/30/20 12:31 Dose 1,000 mls @ ud .ROUTE .STK-MED ONE Potassium Chloride 20 meq in 100 mls @ 50 mls/hr 11/30/20 16:30 11/30/20 19:00 Potassium Chloride 20 Meq In Water 100ml IV 11/30/20 20:29 50 mls/hr Q2H CARLOS ENRIQUE Administration Potassium Chloride 20 meq in 100 mls @ 50 mls/hr 12/01/20 00:30 12/01/20 02:57 Potassium Chloride 20 Meq In Water 100ml IV 12/01/20 04:29 50 mls/hr Q2H CARLOS ENRIQUE Administration Potassium Bicarbonate 25 meq 12/01/20 00:16 12/01/20 00:41 K-Lyte 25 Meq PO 12/01/20 00:17 25 meq STAT ONE Administration Potassium Chloride 40 meq 11/30/20 11:58 11/30/20 12:16 Klor Con 10 Meq PO 11/30/20 11:59 40 meq STAT ONE Administration Potassium Chloride Confirm 11/30/20 12:14 Klor Con 10 Meq Administered 11/30/20 12:15 Dose 40 meq PO .STK-MED ONE Intake & Output (Last 24 hours) 12/01/20 12/02/20 12/03/20 12/04/20 11:59 11:59 11:59 11:59 Intake Total 2237 960 850 120 Output Total 400 200 200 Balance 1837 760 650 120 Weight 78.3 kg 82.5 kg 82 kg Laboratory Results (Last 24 hours) 12/03/20 12/03/20 12/03/20 11:33 06:55 05:00 WBC RBC Hgb Hct MCV MCH MCHC RDW Plt Count MPV Segmented Neutrophils Lymphocytes (Manual) Platelet Estimate RBC Morphology Poikilocytosis Anisocytosis Sodium 133 L Potassium 5.3 H D Chloride 97 L Carbon Dioxide 33 H Anion Gap 7.9 BUN 34 H Creatinine 0.75 Estimated GFR > 60.0 Glucose 149 H POC Glucometer 257 H 164 H Calcium 8.2 L Total Bilirubin 0.50 AST 21 ALT 20 Alkaline Phosphatase 64 Serum Total Protein 5.4 L Albumin 2.7 L 12/03/20 12/02/20 05:00 20:59 WBC 7.1 RBC 3.72 L Hgb 10.2 L Hct 32.9 L MCV 88.4 MCH 27.4 MCHC 31.0 L RDW 13.7 Plt Count 64 L MPV 11.2 H Segmented Neutrophils 99 H Lymphocytes (Manual) 1 L Platelet Estimate DECREASED RBC Morphology ABNORMAL Poikilocytosis 1+ Anisocytosis 1+ Sodium Potassium Chloride Carbon Dioxide Anion Gap BUN Creatinine Estimated GFR Glucose POC Glucometer 235 H Calcium Total Bilirubin AST ALT Alkaline Phosphatase Serum Total Protein Albumin Orders (Last 24 hours) Category Date Time Status House Regular Diet Diet 12/02/20 Dinner Active CBC W DIFF AM.LAB Lab 12/03/20 05:00 Completed CBC W DIFF AM.LAB Lab 12/04/20 04:00 Ordered CMP AM.LAB Lab 12/03/20 05:00 Completed CMP AM.LAB Lab 12/04/20 04:00 Ordered Manual Differential NC Routine Lab 12/03/20 05:00 Completed POCT GLUCOSE Stat Lab 12/02/20 15:47 Completed POCT GLUCOSE Stat Lab 12/02/20 20:59 Completed POCT GLUCOSE Stat Lab 12/03/20 06:55 Completed POCT GLUCOSE Stat Lab 12/03/20 11:33 Completed SARS-CoV-2, KRYSTA Stat Lab 12/03/20 15:48 Received Patient Care Notes (Last 24 hours) 12/02/20 19:02 Case Management Note by Janeth Francis PATIENT WAS ACCEPTED TO [facility] Initialized on 12/02/20 19:02 - END OF NOTE 12/02/20 18:36 Nursing Note by Desiree Mcclain is here seeing patient. Initialized on 12/02/20 18:36 - END OF NOTE Code(s): J44.1 - CHRONIC OBSTRUCTIVE PULMONARY DISEASE W (ACUTE) EXACERBATION (2) Failure of outpatient treatment Current Visit: Yes Status: Acute Code(s): Z78.9 - OTHER SPECIFIED HEALTH STATUS (3) Hypokalemia Current Visit: Yes Status: Acute Code(s): E87.6 - HYPOKALEMIA
[2020-12-04] MEDS: solu-MEDROL 125 MG IV SCH (05:15)
[2020-12-04 05:32] LABS: A-aADO2 317; ABG HEMOGLOBIN 11.5; ARTERIAL BLD GAS O2 SATURATION 94.7 % (95-100); ARTERIAL BLOOD GAS BASE EXCESS 6.2 (-2.0-2.0); ARTERIAL BLOOD GAS PCO2 37 mmHg (35-45); ARTERIAL BLOOD GAS PO2 65 mmHg (75-100); ARTERIAL BLOOD GAS pH 7.51 (7.35-7.45); CARBOXYHEMOGLOBIN 1.2 % THgb (0.0-6.9); HCO3- 29.5 (22-28); HGB O2 SAT 92.9 g/dF (94-100); Methhemoglobin 0.7 % (1.4-1.5)
[2020-12-04 05:33] LABS: ABG SITE RIGHT BRACHIAL
[2020-12-04] MEDS: DUONEB 0.5-3 MG/3 ml Neb IH SCH ×3 (06:15→14:38)
[2020-12-04 06:35] LABS: ARTERIAL BLOOD GAS FIO2 60 %
[2020-12-04] MEDS: Advair Hfa 115/21 Common canister IH SCH (07:08)
[2020-12-04 07:17] LABS: Hematocrit 34.7 % (35-47); Hemoglobin 10.7 gm/dl (12.0-16.0); Mean Cell Volume 88.5 fl (78-100); Mean Corpuscular Hemoglobin 27.3 pg (26-32); Mean Corpuscular Hgb Concent. 30.8 g/dl (32-36); Mean Platelet Volume 10.9 fl (7.5-11.0); Platelet Count 65 K/mm3 (150-450); Red Blood Count 3.92 M/mm3 (4.1-5.4); Red Cell Distribution Width 14.1 % (11.5-14.0); White Blood Count 5.4 K/mm3 (4.0-10.5)
--- NOTE | 2020-12-04 07:23 | PCM.NOTE ---
Date and Time: 12/04/20719 Subjective Assessment: Patient is much more short of breath requiring approximately 7 to 10 L of oxygen nasal cannula. Even though patient coronavirus test was negative few weeks ago considering all the symptoms and desaturation events and respiratory distress clinically patient is showing all the signs of rogers virus 2019 respiratory failure so we will transfer patient to coronavirus unit. - Review of Systems Constitutional: Lethargy, Weakness, No Fever, No Chills Eyes: No Symptoms Ears, Nose, & Throat: No Symptoms Respiratory: Orthopnea, Short Of Breath, Wheezing, No Cough Cardiac: No Chest Pain, No Edema, No Syncope Abdominal/Gastrointestinal: No Abdominal Pain, No Nausea, No Vomiting, No Diarrhea Genitourinary Symptoms: No Dysuria Musculoskeletal: No Back Pain, No Neck Pain Skin: No Rash Neurological: No Dizziness, No Focal Weakness, No Sensory Changes Psychological: No Symptoms Endocrine: No Symptoms Hematologic/Lymphatic: No Symptoms Immunological/Allergic: No Symptoms Objective Exam General Appearance: moderate distress, alert Neurologic Exam: alert, oriented x 3, cooperative, No motor deficits Skin Exam: normal color, warm, dry Eye Exam: PERRL, EOMI, eyes nml inspection Ears, Nose, Throat Exam: normal ENT inspection, pharynx normal, moist mucous membranes Neck Exam: normal inspection, non-tender, supple, full range of motion Respiratory Exam: respiratory distress, accessory muscle use, crackles/rales, rhonchi, wheezing Cardiovascular Exam: regular rate/rhythm, normal heart sounds Gastrointestinal/Abdomen Exam: soft, No tenderness, No mass Extremity Exam: normal inspection, normal range of motion Back Exam: normal inspection, normal range of motion, No CVA tenderness, No vertebral tenderness Pelvic Exam: deferred Rectal Exam: deferred OBJECTIVE DATA Vital Signs: Vital Signs - 24 hr Temp Pulse Resp BP Pulse Ox 12/04/20 06:33 69 18 94 L 12/04/20 04:00 97.1 F 70 20 132/83 88 L 12/04/20 00:00 96.9 F 70 20 124/83 90 L 12/03/20 20:00 97.1 F 71 22 136/84 91 L 12/03/20 18:43 76 24 86 L 12/03/20 16:00 96.7 F 75 19 132/79 91 L 12/03/20 14:50 78 18 92 L 12/03/20 12:00 97.9 F 82 18 105/62 86 L 12/03/20 10:31 74 20 90 L 12/03/20 07:21 99.1 F 72 18 113/91 88 L Oxygen-Last 24 hours Oxygen Flowrate (L/min)-RT 8 Pain Assessment - Last Documented Pain Intensity 0 Intake and Output: Intake & Output 12/01/20 12/02/20 12/03/20 12/04/20 11:59 11:59 11:59 11:59 Intake Total 2237 960 850 645 Output Total 400 200 200 300 Balance 1837 581 650 345 Weight 78.3 kg 82.5 kg 82 kg 82.2 kg Lab Results: Lab Results-Last 24 Hours 12/03/20 12/03/20 12/03/20 Range/Units 05:00 05:00 11:33 Segmented Neutrophils 99 H (36.0-66.0) % Lymphocytes (Manual) 1 L (24-44) % Platelet Estimate DECREASED (NORMAL) RBC Morphology ABNORMAL Poikilocytosis 1+ Anisocytosis 1+ Puncture Site pCO2 (35-45) mmHg pO2 (75-100) mmHg Base Excess (-2.0-2.0) O2 Saturation (94-100) g/dF ABG pH (7.35-7.45) ABG HCO3 (22-28) ABG O2 Sat (Measured) (95-100) % Hiro Test A-a Gradient a/A Ratio Hemoglobin Carboxyhemoglobin (0.0-6.9) % THgb Methemoglobin (1.4-1.5) % Temperature C POC O2 Flow Rate % Potassium 5.3 H D (3.5-5.1) mmol/L POC Glucometer 257 H (74 to 106) mg/dL 12/03/20 12/03/20 12/04/20 Range/Units 16:45 21:31 05:08 Segmented Neutrophils (36.0-66.0) % Lymphocytes (Manual) (24-44) % Platelet Estimate (NORMAL) RBC Morphology Poikilocytosis Anisocytosis Puncture Site RIGHT BRACHIAL pCO2 37 (35-45) mmHg pO2 65 L (75-100) mmHg Base Excess 6.2 H (-2.0-2.0) O2 Saturation 92.9 L (94-100) g/dF ABG pH 7.51 H (7.35-7.45) ABG HCO3 29.5 H* (22-28) ABG O2 Sat (Measured) 94.7 L (95-100) % Hiro Test n/a A-a Gradient 317 a/A Ratio 0.17 Hemoglobin 11.5 Carboxyhemoglobin 1.2 (0.0-6.9) % THgb Methemoglobin 0.7 L (1.4-1.5) % Temperature 37.0 C POC O2 Flow Rate 60 % Potassium 5.0 (3.5-5.1) mmol/L POC Glucometer 172 H 150 H (74 to 106) mg/dL Radiology Exams: Radiology Procedures Category Date Time Status CHEST 1 VIEW (PORTABLE) Urgent Exams 12/04/20 05:14 Taken Assessment/Plan (1) Acute respiratory failure due to COVID-19 Current Visit: Yes Status: Acute Assessment & Plan: Chief Complaint Diagnosis EXAC COPD, CHF, PNEUMONIA Allergies Allergy/AdvReac Type Severity Reaction Status Date / Time No Known Drug Allergies Allergy Verified 11/30/20 15:50 Vital Signs (Last 24 hours) Temp Pulse Resp BP Pulse Ox 12/04/20 06:33 69 18 94 L 12/04/20 04:00 97.1 F 70 20 132/83 88 L 12/04/20 00:00 96.9 F 70 20 124/83 90 L 12/03/20 20:00 97.1 F 71 22 136/84 91 L 12/03/20 18:43 76 24 86 L 12/03/20 16:00 96.7 F 75 19 132/79 91 L 12/03/20 14:50 78 18 92 L 12/03/20 12:00 97.9 F 82 18 105/62 86 L 12/03/20 10:31 74 20 90 L Current Medications Generic Name Dose Route Start Last Admin Trade Name Freq PRN Reason Stop Dose Admin Acetaminophen 650 mg 11/30/20 13:58 Tylenol 325 Mg PO 12/30/20 13:57 Q4H PRN PRN PAIN AND/OR FEVER Albuterol Sulfate 2 puff 11/30/20 15:22 Ventolin Common Canister IH 12/30/20 15:21 Q4H PRN PRN SHORTNESS OF BREATH Albuterol/Ipratropium 3 ml 11/30/20 15:00 12/04/20 06:15 Duoneb 0.5-3 Mg/3 Ml Neb IH 12/30/20 14:59 3 ml QIDRT CARLOS ENRIQUE Administration Aspirin 81 mg 12/01/20 10:00 12/03/20 09:47 Ecotrin 81 Mg PO 12/31/20 09:59 81 mg DAILY CARLOS ENRIQUE Administration Carvedilol 12.5 mg 11/30/20 22:00 12/03/20 21:23 Coreg 12.5 Mg PO 12/30/20 21:59 12.5 mg BID CARLOS ENRIQUE Administration Clonidine 0.3 mg 11/30/20 16:00 12/03/20 21:23 Catapres 0.1 Mg PO 12/30/20 15:59 0.3 mg TID CARLOS ENRIQUE Administration Diltiazem HCl 180 mg 11/30/20 22:00 12/03/20 21:23 Cardizem Cd 180 Mg PO 12/30/20 21:59 180 mg BID CARLOS ENIRQUE Administration Enoxaparin Sodium 40 mg 11/30/20 15:00 12/03/20 09:47 Enoxaparin Sodium SQ 12/30/20 14:59 40 mg DAILY CARLOS ENRIQUE Administration Azithromycin 500 mg in 250 mls @ 250 mls/hr 12/01/20 10:00 12/03/20 10:49 Zithromax 500 Mg/ 250 Ml Nacl Premix IV 12/31/20 09:59 250 mls/hr Q24H10 CARLOS ENRIQUE Administration Ceftriaxone Sodium/Dextrose 1 g in 50 mls @ 100 mls/hr 12/01/20 10:00 12/03/20 09:40 Rocephin 1 Gm-D5w 50 Ml Bag IV 12/31/20 09:59 100 mls/hr Q24H10 CARLOS ENRIQUE Administration Insulin Human Lispro 0 unit 11/30/20 13:58 12/03/20 17:33 Humalog SQ 12/30/20 13:57 3 unit UD PRN Administration HYPERGLYCEMIA Lisinopril 40 mg 11/30/20 16:00 12/03/20 09:47 Zestril 20 Mg PO 12/30/20 15:59 40 mg DAILY CARLOS ENRIQUE Administration Methylprednisolone Sodium Succinate 80 mg 11/30/20 14:00 12/04/20 05:15 Solu-Medrol 125 Mg IV 12/30/20 13:59 80 mg Q6HT CARLOS ENRIQUE Administration Morphine Sulfate 2 mg 11/30/20 13:58 12/04/20 05:15 Morphine Sulfate 2 Mg Inj IV 12/05/20 13:57 2 mg Q4H PRN PRN Administration PAIN Ondansetron HCl 4 mg 11/30/20 13:58 Zofran 4 Mg/2 Ml Vial IV 12/30/20 13:57 Q6H PRN PRN NAUSEA/VOMITING Pantoprazole Sodium 40 mg 11/30/20 15:00 12/03/20 09:39 Protonix 40 Mg Iv IV 12/30/20 14:59 40 mg Q24H10 CARLOS ENRIQUE Administration Potassium Chloride 40 meq 11/30/20 22:00 12/03/20 09:47 Klor Con 10 Meq PO 12/30/20 21:59 40 meq TID CARLOS ENRIQUE Administration Fluticasone/Salmeterol 2 puff 11/30/20 19:00 12/04/20 07:08 Advair Hfa 115/ Common Canister* IH 12/30/20 18:59 Not Given BIDRT CARLOS ENRIQUE Simvastatin 10 mg 11/30/20 16:00 12/03/20 09:46 Zocor 10mg PO 12/30/20 15:59 10 mg DAILY CARLOS ENRIQUE Administration Tramadol HCl 50 mg 11/30/20 15:13 Ultram 50 Mg PO 12/30/20 15:12 BID PRN PRN PAIN Discontinued Medications Generic Name Dose Route Start Last Admin Trade Name Freq PRN Reason Stop Dose Admin Aspirin 324 mg 11/30/20 10:48 11/30/20 11:04 Baby Aspirin 81 Mg Chew PO 11/30/20 10:49 324 mg STAT ONE Administration Furosemide 40 mg 11/30/20 16:18 11/30/20 19:38 Lasix 40 Mg/4 Ml IV 11/30/20 16:19 Not Given STAT ONE Azithromycin 500 mg in 250 mls @ 250 mls/hr 11/30/20 11:30 11/30/20 13:42 Zithromax 500 Mg/ 250 Ml Nacl Premix IV 11/30/20 12:29 Infused STAT STA Infusion Ceftriaxone Sodium/Dextrose 1 g in 50 mls @ 100 mls/hr 11/30/20 11:30 11/30/20 12:46 Rocephin 1 Gm-D5w 50 Ml Bag IV 11/30/20 11:59 Infused STAT STA Infusion Potassium Chloride 20 meq in 100 mls @ 50 mls/hr 11/30/20 12:00 11/30/20 12:16 Potassium Chloride 20 Meq In Water 100ml IV 11/30/20 15:59 50 mls/hr Q2H CARLOS ENRIQUE Administration Azithromycin Confirm 11/30/20 12:14 Zithromax 500 Mg/ 250 Ml Nacl Premix Administered 11/30/20 12:15 Dose 500 mg in 250 mls @ ud IV .STK-MED ONE Ceftriaxone Sodium/Dextrose Confirm 11/30/20 12:14 Rocephin 1 Gm-D5w 50 Ml Bag Administered 11/30/20 12:15 Dose 1 g in 50 mls @ ud IV .STK-MED ONE Sodium Chloride Confirm 11/30/20 12:30 Sodium Chloride 0.9% 1000 Ml Administered 11/30/20 12:31 Dose 1,000 mls @ ud .ROUTE .STK-MED ONE Potassium Chloride 20 meq in 100 mls @ 50 mls/hr 11/30/20 16:30 11/30/20 19:00 Potassium Chloride 20 Meq In Water 100ml IV 11/30/20 20:29 50 mls/hr Q2H CARLOS ENRIQUE Administration Potassium Chloride 20 meq in 100 mls @ 50 mls/hr 12/01/20 00:30 12/01/20 02:57 Potassium Chloride 20 Meq In Water 100ml IV 12/01/20 04:29 50 mls/hr Q2H CARLOS ENRIQUE Administration Potassium Bicarbonate 25 meq 12/01/20 00:16 12/01/20 00:41 K-Lyte 25 Meq PO 12/01/20 00:17 25 meq STAT ONE Administration Potassium Chloride 40 meq 11/30/20 11:58 11/30/20 12:16 Klor Con 10 Meq PO 11/30/20 11:59 40 meq STAT ONE Administration Potassium Chloride Confirm 11/30/20 12:14 Klor Con 10 Meq Administered 11/30/20 12:15 Dose 40 meq PO .STK-MED ONE Intake & Output (Last 24 hours) 12/01/20 12/02/20 12/03/2021 11:59 11:59 11:59 11:59 Intake Total 2619 960 850 645 Output Total 400 200 200 300 Balance 1837 760 650 345 Weight 78.3 kg 82.5 kg 82 kg 82.2 kg Laboratory Results (Last 24 hours) 12/04/20 12/03/20 12/03/20 05:08 21:31 16:45 Segmented Neutrophils Lymphocytes (Manual) Platelet Estimate RBC Morphology Poikilocytosis Anisocytosis Puncture Site RIGHT BRACHIAL pCO2 37 pO2 65 L Base Excess 6.2 H O2 Saturation 92.9 L ABG pH 7.51 H ABG HCO3 29.5 H* ABG O2 Sat (Measured) 94.7 L Hiro Test n/a A-a Gradient 317 a/A Ratio 0.17 Hemoglobin 11.5 Carboxyhemoglobin 1.2 Methemoglobin 0.7 L Potassium 5.0 Temperature 37.0 POC O2 Flow Rate 60 POC Glucometer 150 H 172 H 12/03/20 12/03/20 11:33 05:00 Segmented Neutrophils 99 H Lymphocytes (Manual) 1 L Platelet Estimate DECREASED RBC Morphology ABNORMAL Poikilocytosis 1+ Anisocytosis 1+ Puncture Site pCO2 pO2 Base Excess O2 Saturation ABG pH ABG HCO3 ABG O2 Sat (Measured) Hiro Test A-a Gradient a/A Ratio Hemoglobin Carboxyhemoglobin Methemoglobin Potassium Temperature POC O2 Flow Rate POC Glucometer 257 H Orders (Last 24 hours) Category Date Time Status Isolation, Initiate & Maintain Q12H Care 12/04/20 05:00 Active CHEST 1 VIEW (PORTABLE) Urgent Exams 12/04/20 05:14 Taken ABG [ARTERIAL BLOOD GASES] Urgent Lab 12/04/20 05:08 Completed CBC W DIFF AM.LAB Lab 12/04/20 05:38 Received CMP AM.LAB Lab 12/04/20 05:38 Received D-DIMER QUANTITATIVE AM.LAB Lab 12/04/20 05:38 Received NT PRO BNP AM.LAB Lab 12/04/20 05:38 Received POCT GLUCOSE Stat Lab 12/03/20 06:55 Completed POCT GLUCOSE Stat Lab 12/03/20 11:33 Completed POCT GLUCOSE Stat Lab 12/03/20 16:45 Completed POCT GLUCOSE Stat Lab 12/03/20 21:31 Completed SARS-CoV-2, KRYSTA Stat Lab 12/03/20 15:48 Received BiPap/CPAP STAT RT 12/04/20 06:31 Active Patient Care Notes (Last 24 hours) 12/04/20 05:02 Nursing Note by Kerry Mcgregor Patient up to BSC. Patient SOB and O2 sat down to 68% on O2 8L/oxymizer. Increas ed O2 to 11L/oxymizer and O2 sat up to 88%. Ivy, RT notified. Initialized on 12/04/20 05:02 - END OF NOTE Code(s): U07.1 - COVID-19; J96.00 - ACUTE RESPIRATORY FAILURE, UNSP W HYPOXIA OR HYPERCAPNIA (2) Pneumonia due to 2019 novel coronavirus Current Visit: Yes Status: Acute Code(s): U07.1 - COVID-19; J12.82 - PNEUMONIA DUE TO CORONAVIRUS DISEASE (3) Acute exacerbation of chronic obstructive pulmonary disease (COPD) Current Visit: Yes Status: Acute Code(s): J44.1 - CHRONIC OBSTRUCTIVE PULMONARY DISEASE W (ACUTE) EXACERBATION (4) Failure of outpatient treatment Current Visit: Yes Status: Acute Code(s): Z78.9 - OTHER SPECIFIED HEALTH STATUS (5) Hypokalemia Current Visit: Yes Status: Resolved Code(s): E87.6 - HYPOKALEMIA
[2020-12-04 07:30] LABS: ALBUMIN 2.8 g/dL (3.5-5.0); ALKALINE PHOSPHATASE 75 U/L (38-126); ANION GAP 11.7 MEQ/L (5-15); BLOOD UREA NITROGEN 37 mg/dL (7-17); CHLORIDE 99 mmol/L (98-107); Calcium 8.4 mg/dL (8.4-10.2); Carbon Dioxide 25 mmol/L (22-30); Creatinine 1 0.67 mg/dL (0.52-1.04); EST GLOMERULAR FILTRATION RATE > 60.0 ML/MIN; Glucose 192 mg/dL (74-106); Potassium 5.2 mmol/L (3.5-5.1); SGOT/AST 31 U/L (14-36); SGPT/ALT 26 U/L (0-35); SODIUM 131 mmol/L (137-145); Total Protein 5.5 g/dL (6.3-8.2)
[2020-12-04] MEDS ORDERED: REMDESIVIR 200 MG in Sodium Chloride 0.9% 250 ML 250 ML IV ONE (08:00)
[2020-12-04 08:10] LABS: Lymphocytes 7 % (24-44); Monocyte 2 % (0.0-12.0); Neutrophils 91 % (36.0-66.0); Total Cells Counted 100
[2020-12-04 08:11] LABS: Platelet Estimate DECREASED (NORMAL)
--- NOTE | 2020-12-04 08:36 | XRAY ---
Indication: Hypoxia. Suspect Covid 19. Comparison: November 30, 2020. Portable chests demonstrates dramatic worsening with now diffuse bilateral airspace disease. Also new cardiomegaly and increasing small bibasilar effusions concerning for cardiac decompensation versus fluid overload. Remaining chest unremarkable. Comment: Preliminary interpretation was made by [facility]. No critical discrepancy
[2020-12-04] MEDS: COREG 12.5 MG PO SCH (09:27)
[2020-12-04] MEDS: Zocor 10MG PO SCH (09:27)
[2020-12-04] MEDS: Cardizem CD 180 MG PO SCH (09:27)
[2020-12-04] MEDS: PROTONIX 40 MG IV IV SCH (09:27)
[2020-12-04] MEDS: Zestril 20 MG PO SCH (09:27)
[2020-12-04] MEDS: Catapres 0.1 MG PO SCH ×3 (09:27→15:03)
[2020-12-04] MEDS ORDERED: ENOXAPARIN SODIUM SQ SCH (10:00)
[2020-12-04 10:35] LABS: Appearance CLEAR (CLEAR); Bacteria RARE /HPF (NEGATIVE); Bilirubin NEGATIVE (NEGATIVE); Blood NEGATIVE Ery/ul (0-5); Glucose 50 mg/dL (NEGATIVE); Ketones NEGATIVE (NEGATIVE); Leukocyte Esterase NEGATIVE (NEGATIVE); Mucus SLIGHT /HPF (NEGATIVE); Nitrite NEGATIVE (NEGATIVE); Protein,Urine Dip 30 (Negative); Specific Gravity 1.028 (1.005-1.025); Urobilinogen 4 mg/dL (0-1); WBC 0-2 /HPF (0-5)
[2020-12-04] MEDS: HUMALOG SQ PRN (11:49)
[2020-12-04] MEDS ORDERED: Klor Con 10 MEQ PO SCH (12:00)
[2020-12-04] MEDS ORDERED: Lasix 20 MG/2 ML IV SCH (12:00)
[2020-12-04] MEDS ORDERED: Ativan 2 MG/1 ML VIAL IV PRN (12:52)
[2020-12-04 13:02] LABS: A-aADO2 287; ABG HEMOGLOBIN 11.2; ABG POTASSIUM 4.5 (3.5-5.1); ABG SITE RIGHT BRACHIAL; ARTERIAL BLD GAS O2 SATURATION 98.2 % (95-100); ARTERIAL BLOOD GAS BASE EXCESS 6.2 (-2.0-2.0); ARTERIAL BLOOD GAS FIO2 60 %; ARTERIAL BLOOD GAS PCO2 42 mmHg (35-45); ARTERIAL BLOOD GAS PO2 88 mmHg (75-100); ARTERIAL BLOOD GAS VENT MODE BiPAP; ARTERIAL BLOOD GAS pH 7.47 (7.35-7.45); CARBOXYHEMOGLOBIN 0.9 % THgb (0.0-6.9); HCO3- 30.6 (22-28); HGB O2 SAT 96.1 g/dF (94-100); Methhemoglobin 1.2 % (1.4-1.5)
[2020-12-04 15:19] VITALS: BP 135/77
[2020-12-04 15:34] LABS: A-aADO2 277; ABG POTASSIUM 4.1 (3.5-5.1); ABG SITE RIGHT BRACHIAL; ARTERIAL BLD GAS O2 SATURATION 98.7 % (95-100); ARTERIAL BLOOD GAS BASE EXCESS 8.2 (-2.0-2.0); ARTERIAL BLOOD GAS FIO2 60 %; ARTERIAL BLOOD GAS PCO2 44 mmHg (35-45); ARTERIAL BLOOD GAS PO2 96 mmHg (75-100); ARTERIAL BLOOD GAS VENT MODE BiPAP; ARTERIAL BLOOD GAS pH 7.48 (7.35-7.45); HCO3- 32.8 (22-28); HGB O2 SAT 96.6 g/dF (94-100); Methhemoglobin 1.1 % (1.4-1.5)
[2020-12-04 15:37] VITALS: PULSE 70; O2SAT 96
[2020-12-04] MEDS ORDERED: Decadron 4 MG INJ IV SCH (18:00)
[2020-12-05] MEDS ORDERED: REMDESIVIR 100 MG in Sodium Chloride 0.9% 100 ML IVPB 100 ML IV SCH (10:00)
--- NOTE | 2020-12-05 11:57 | PROG NOTE ---
Events noted. Chart reviewed. CONSULT DATE: 12/02/2020 HISTORY: The patient is awake, comfortable. Evaluated her the day before in the emergency room and has been admitted for pneumonia and hypoxemia. The patient does report feeling better, continues to have minimally productive cough. Denies chest pain. Vital signs noted. PHYSICAL EXAMINATION: HEENT: Normocephalic. Oral exam limited. NECK: Supple. CVS: First and second heart sounds are normal, regular, rhythmic. RESPIRATORY: Shows diminished breath sounds. Bilateral rhonchi are heard. ABDOMEN: Soft. EXTREMITIES: No edema is noted. LABORATORY DATA AND TESTS: Labs reviewed. ASSESSMENT: This is a 65 year old woman admitted with: 1) Left upper lobe pneumonia clinically improving. 2) Hypoxemia, chronic. 3) COPD with exacerbation. 4) Hypokalemia being corrected. RECOMMENDATIONS: The patient appears to be clinically improving, will obtain follow up x-ray possibly on 12/05/2020. Continue present therapy, reduce steroids gradually and increase ambulation. I will be available over the weekend as needed.
--- NOTE | 2020-12-05 13:29 | HP ---
CHIEF COMPLAINT: Shortness of breath. HISTORY OF PRESENT ILLNESS: A 65 year-old white female with increasing shortness of breath over the last several days. She was admitted to the hospital and treated for bacterial pneumonia, exacerbation of COPD. However the week before that she came in with some heart failure and maybe a subendocardial myocardial infarction. She was seen by Dr. Mane Whaley during early admission. She did not have COVID probably during the early admission but she has deteriorated and chest x-ray yesterday showed bilateral infiltrates and said there was single infiltrate in right upper lobe characteristic of COVID. Her rapid decline is more like COVID. The second test is pending. D-dimer has gone up to 12,000. BNP is still elevated markedly. White count 2.4 reflecting viral pneumonia, potassium which was low at 2.3 a day or two ago is now up to 5 and we are going to discontinue most of potassium, slow her IV rate down and add 40 of Lasix. BNP was 2,000. She is alert, orientated, eating. She has no GI sign of infection. She denies any chest pain. She said she still smokes. 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 She said she is weak and needs assistance to get up. She said she just gotten weaker over the last four or five days. She has been in the hospital with the second or third admission yesterday. PAST MEDICAL HISTORY: Diabetes mellitus. REVIEW OF SYSTEMS: HEENT: Slightly hard of hearing. CHEST: Short of breath at rest and we are trying on BiPAP of high flow oxygen to keep her O2 saturations in the 90's. Heavy smoker in the past. 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 CVS: No known heart attacks but she did have heart failure and she had been diagnosed last week with subendocardial myocardial infarction. Troponins were elevated although they have come down over the last two days and they were severely elevated. I cannot find out why she had heart failure. She denies heart attacks before then. Heart is normal size on chest x-ray on 11/21/2020. ABDOMEN: No nausea or vomiting. No cirrhosis. No history of drinking. No history of hepatitis B or C. EXTREMITIES: Very weak. SOCIAL HISTORY: She has several sons who live next door. of hepatitis B, I believe, years ago. PHYSICAL EXAMINATION: The patient is alert, orientated, older than normal 65 year-old white female who is short of breath and talking quick. HEENT: Pupils equal and reactive to light. CHEST: Bilateral rales. CVS: Regular rate. No murmurs or gallops. ABDOMEN: Obese. No tenderness or organomegaly. EXTREMITIES: The patient's leg have no edema, no cyanosis. In the past she was a very strong lady. She looks like she has aged quite a bit since I had seen her three years ago. IMPRESSION: A complicated patient comes in with heart failure a week or two ago and then came in with right upper lobe pneumonia maybe a week ago and actually saw Dr. Whaley at that time and was treated with Rocephin and Zithromax. Presently since she has been here three days on Rocephin and Zithromax and the first test for COVID was negative and repeating a second one. Classically she looks like COVID today as her primary care doctor who is taking care of her decided. From signs of COVID problems: 1) Problems of COVID pneumonia. 2) Congestive heart failure. 3) Recent subendocardial myocardial infarction. 4) Diabetes mellitus. 5) Recent hyperkalemia. 6) Mild renal insufficiency with GFR 60. PLAN: 1) Will anticoagulated with baby aspirin and with Lovenox watching her moderately low platelet count of 60,000. 2) Started Remdesivir and Decadron. 3) Monitor heart failure with 40 of Lasix, repeat the chest x-ray tomorrow, repeat all of her blood work tomorrow. PROGNOSIS: Guarded due to multiple risk factors.
== END 2020-12-04 16:00 | disposition short-term general hospital (02) | DRG 190 ==
LOC: ED 10:36 → ICU 13:50 → MED SURG 19:10 → OBSVTOIN 12-01 06:33
PROVIDERS: ADMIT Family Medicine; ATTEND Family Medicine
DX: J44.1 Chronic obstructive pulmonary disease with (acute) exacerbation (principal); J12.82 Pneumonia due to coronavirus disease 2019; U07.1 COVID-19; J96.00 Acute respiratory failure, unspecified whether with hypoxia or hypercapnia; J96.11 Chronic respiratory failure with hypoxia; R94.5 Abnormal results of liver function studies; E66.9 Obesity, unspecified; F17.200 Nicotine dependence, unspecified, uncomplicated; Z79.899 Other long term (current) drug therapy; E78.00 Pure hypercholesterolemia, unspecified; I11.0 Hypertensive heart disease with heart failure; I50.9 Heart failure, unspecified; E11.9 Type 2 diabetes mellitus without complications; N28.9 Disorder of kidney and ureter, unspecified; E87.6 Hypokalemia; I25.10 Atherosclerotic heart disease of native coronary artery without angina pectoris
CPT/HCPCS: 36000; 36415; 36600; 71045; 80053; 81001; 82375; 82803; 82947; 83605; 83735; 83880; 84132; 84484; 85025; 85379; 87040; 87086; 93005; 93041; 93268; 94002; 94640; 94762; 96365; 96368; 97161; 97530; 99285; 99291; G0378; U0003; J0456; J0696; J1650; J1817; J1940; J2060; J2270; J2930; J3480; A9270-GY

== ENCOUNTER 2021-05-23 21:09 | Emergency (ER) | payer MEDICARE ==
--- NOTE | 2021-05-23 21:30 | ERPHSYRPT ---
- History of Present Illness Time Seen by Provider: 05/23/21 21:25 Historian: patient Exam Limitations: no limitations Physician History: This is a 66-year-old white female patient of Dr. Cary and whose electrician research is Dr. Forrest and presents with 3-day history of worsening abdominal pain. She states she is unable to hold down food or liquids. She has not taken her medication in 3 days. Patient has a history of migraine headaches, COPD, elevated cholesterol, hypertension, CHF. There is been associated weight loss in the last month. She is status post cholecystectomy and status post hysterectomy. Patient continues to smoke cigarettes. Patient has not had a bowel movement in 2 days. This is normal for her. Patient states that Dr. Ferraro performed a colonoscopy on her within a year and it was normal per her report Timing/Duration: day(s) (3), worse Activities at Onset: none Abdominal Pain Onset Location: generalized abdomen Pain Radiation: no radiation Severity of Pain-Max: moderate Severity of Pain-Current: moderate Modifying Factors: Improves With: vomiting Associated Symptoms: loss of appetite, nausea, vomiting Previous symptoms: no prior history Allergies/Adverse Reactions: No Known Drug Allergies Allergy (Verified 05/23/21 21:31) Home Medications: Albuterol 8 gm Mdi Hfa [Ventolin Hfa MDI] 2 puffs IH Q4H PRN PRN 08/02/15 [History] cloNIDine HCL [Catapres] 0.3 mg PO TID 07/28/18 [History] Atorvastatin Calcium [Lipitor] 40 mg PO DAILY 12/06/18 [History] Albuterol Sulfate 1 amp IH QID PRN PRN 11/12/20 [History] Carvedilol 12.5 mg [Coreg 12.5 mg] 12.5 mg PO BID 11/12/20 [History] Apixaban [Eliquis] 5 mg PO DAILY 05/23/21 [History] Famotidine 20 mg [Pepcid 20 MG] 20 mg PO DAILY 05/23/21 [History] Furosemide 40 mg [Lasix 40 MG] 20 mg PO DAILY 05/23/21 [History] Isosorbide Mononitrate [Isosorbide Mononitrate ER] 30 mg PO DAILY 05/23/21 [History] Magnesium Oxide 400 mg [Mag-Ox 400] 400 mg PO DAILY 05/23/21 [History] Metformin HCl [Glucophage] 1,000 mg PO BID 05/23/21 [History] Potassium Chloride 10 Meq Tab* [Klor Con 10 MEQ] 10 meq PO DAILY 05/23/21 [History] Hx Tetanus, Diphtheria Vaccination/Date Given: No Hx Influenza Vaccination/Date Given: Yes Hx Pneumococcal Vaccination/Date Given: Yes Travel Risk - International Travel Have you traveled outside of the country in past 3 weeks: No - Coronavirus Screening Are you exhibiting any of the following symptoms?: No Close contact with a COVID-19 positive Pt in past 14-21 Days: No - Review of Systems Constitutional: No Symptoms Eyes: No Symptoms Ears, Nose, & Throat: No Symptoms Respiratory: No Symptoms Cardiac: No Symptoms Abdominal/Gastrointestinal: Abdominal Pain, Nausea, Vomiting, Constipation, Appetite Changes, No Diarrhea Genitourinary Symptoms: No Symptoms Musculoskeletal: No Symptoms Skin: No Symptoms Neurological: No Symptoms Psychological: No Symptoms Endocrine: No Symptoms Hematologic/Lymphatic: No Symptoms Immunological/Allergic: No Symptoms All Other Systems: Reviewed and Negative - Past Medical History Pertinent Past Medical History: Yes Neurological History: Migraines ENT History: No Pertinent History Cardiac History: Congestive Heart Failure, High Cholesterol, Hypertension Respiratory History: Asthma, CHF, COPD, Emphysema, Other Endocrine Medical History: No Pertinent History Musculoskeletal History: Arthritis GI Medical History: Gallbladder Disease History: No Pertinent History Psycho-Social History: Anxiety Female Reproductive Disorders: No Pertinent History Other Medical History: 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 - Past Surgical History Past Surgical History: Yes Neuro Surgical History: No Pertinent History Cardiac: No Pertinent History Respiratory: No Pertinent History Gastrointestinal: Cholecystectomy Genitourinary: No Pertinent History Musculoskeletal: Orthopedic Surgery Female Surgical History: Hysterectomy Other Surgical History: right knee replacement, screw in pelvis, misha in left leg - Social History Smoking Status: Current every day smoker How long have you smoked: 47 Exposure to second hand smoke: Yes Drug Use: none Patient Lives Alone: Yes - Nursing Vital Signs Nursing Vital Signs: Initial Vital Signs Temperature 100.5 F 05/23/21 21:15 Pulse Rate 122 H 05/23/21 21:15 Respiratory Rate 18 05/23/21 21:15 Blood Pressure 197/123 05/23/21 21:15 O2 Sat by Pulse Oximetry 96 05/23/21 21:15 Pain Scale Pain Intensity 8 - Physical Exam General Appearance: no apparent distress, alert, anxiety Eye Exam: PERRL/EOMI, eyes nml inspection Ears, Nose, Throat Exam: normal ENT inspection, moist mucous membranes Neck Exam: normal inspection, non-tender, supple, full range of motion Respiratory Exam: normal breath sounds, lungs clear, No chest tenderness, No respiratory distress Cardiovascular Exam: tachycardia Gastrointestinal/Abdomen Exam: soft, normal bowel sounds, tenderness, guarding, No rebound Pelvic Exam: not done Rectal Exam: not done Back Exam: normal inspection Extremity Exam: normal inspection Neurologic Exam: alert, oriented x 3, cooperative, head of acquisitions II-XII nml as tested, normal mood/affect, nml cerebellar function, nml station & gait, sensation nml Skin Exam: normal color, warm, dry Lymphatic Exam: No adenopathy SpO2 Interpretation: normal O2 Delivery: Room Air - Course Nursing assessment & vital signs reviewed: Yes Ordered Tests: Active Orders 24 hr Category Date Time Status IV Insertion STAT Care 05/23/21 21:37 Active ABDOMEN AND PELVIS W/0 CONTRAS [CT] Stat Exams 05/23/21 21:39 Taken AMYLASE Stat Lab 05/23/21 21:27 Completed CBC W DIFF Stat Lab 05/23/21 21:27 Completed CMP Stat Lab 05/23/21 21:27 Completed LIPASE Stat Lab 05/23/21 21:27 Completed Lactic Acid Stat Lab 05/23/21 21:37 Completed Manual Differential NC Stat Lab 05/23/21 21:27 Completed PROTIME WITH INR Stat Lab 05/23/21 22:03 Completed UA W/RFX UR CULTURE Stat Lab 05/23/21 22:01 Completed Medication Summary Generic Name Dose Route Start Last Admin Trade Name Freq PRN Reason Stop Dose Admin Potassium Chloride 10 meq 05/23/21 23:11 Klor Con 10 Meq PO 05/23/21 23:12 STAT ONE Discontinued Medications Generic Name Dose Route Start Last Admin Trade Name Freq PRN Reason Stop Dose Admin Sodium Chloride 1,000 mls @ 999 mls/hr 05/23/21 21:37 05/23/21 22:01 Sodium Chloride 0.9% 1000 Ml IV 05/23/21 22:37 999 mls/hr .Q1H1M STA Administration Sodium Chloride Confirm 05/23/21 21:56 Sodium Chloride 0.9% 1000 Ml Administered 05/23/21 21:57 Dose 1,000 mls @ ud .ROUTE .STK-MED ONE Metoprolol Tartrate 5 mg 05/23/21 21:40 05/23/21 22:02 Lopressor 5 Mg/5 Ml Injection IV 05/23/21 21:41 5 mg STAT ONE Administration Metoprolol Tartrate Confirm 05/23/21 21:55 Lopressor 5 Mg/5 Ml Injection Administered 05/23/21 21:56 Dose 5 mg IV .STK-MED ONE Morphine Sulfate 2 mg 05/23/21 21:37 05/23/21 22:02 Morphine Sulfate 2 Mg Inj IV 05/23/21 21:38 2 mg STAT ONE Administration Morphine Sulfate Confirm 05/23/21 21:56 Morphine Sulfate 2 Mg Inj Administered 05/23/21 21:57 Dose 2 mg .ROUTE .STK-MED ONE Ondansetron HCl 4 mg 05/23/21 21:37 05/23/21 22:01 Zofran 4 Mg/2 Ml Vial IV 05/23/21 21:38 4 mg STAT ONE Administration Ondansetron HCl Confirm 05/23/21 21:55 Zofran 4 Mg/2 Ml Vial Administered 05/23/21 21:56 Dose 4 mg .ROUTE .STK-MED ONE Lab/Rad Data: Laboratory Result Diagrams 05/23/21 21:27 05/23/21 21:27 Laboratory Results 05/23/21 05/23/21 05/23/21 Range/Units 22:03 22:01 21:37 WBC (4.0-10.5) K/mm3 RBC (4.1-5.4) M/mm3 Hgb (12.0-16.0) gm/dl Hct (35-47) % MCV (78-100) fl MCH (26-32) pg MCHC (32-36) g/dl RDW (11.5-14.0) % Plt Count (150-450) K/mm3 MPV (7.5-11.0) fl PT 13.1 H (9.4-12.5) SECONDS INR 1.11 (0.8-3.0) Sodium (137-145) mmol/L Potassium (3.5-5.1) mmol/L Chloride (98-107) mmol/L Carbon Dioxide (22-30) mmol/L Anion Gap (5-15) MEQ/L BUN (7-17) mg/dL Creatinine (0.52-1.04) mg/dL Estimated GFR ML/MIN Glucose (74-106) mg/dL Lactic Acid 0.7 (0.4-2.0) Calcium (8.4-10.2) mg/dL Total Bilirubin (0.2-1.3) mg/dL AST (14-36) U/L ALT (0-35) U/L Alkaline Phosphatase (38-126) U/L Serum Total Protein (6.3-8.2) g/dL Albumin (3.5-5.0) g/dL Amylase (30-110) U/L Lipase (23-300) U/L Urine Color YELLOW (YELLOW) Urine Appearance CLEAR (CLEAR) Urine pH 5.0 (5-6) Ur Specific Loop 1.005 (1.005-1.025) Urine Protein NEGATIVE (Negative) Urine Ketones NEGATIVE (NEGATIVE) Urine Blood MODERATE (0-5) Jose/ul Urine Nitrite NEGATIVE (NEGATIVE) Urine Bilirubin NEGATIVE (NEGATIVE) Urine Urobilinogen 2 (0-1) mg/dL Ur Leukocyte Esterase TRACE (NEGATIVE) Urine WBC (Auto) NONE (0-5) /HPF Urine RBC (Auto) 3-5 (0-2) /HPF U Epithel Cells (Auto) RARE (FEW) /HPF Urine Bacteria (Auto) NONE (NEGATIVE) /HPF Urine Culture Reflexed NO (NO) Urine Glucose NEGATIVE (NEGATIVE) mg/dL 05/23/21 05/23/21 Range/Units 21:27 21:27 WBC 10.1 (4.0-10.5) K/mm3 RBC 4.08 L (4.1-5.4) M/mm3 Hgb 11.2 L (12.0-16.0) gm/dl Hct 34.3 L (35-47) % MCV 84.1 (78-100) fl MCH 27.5 (26-32) pg MCHC 32.7 (32-36) g/dl RDW 15.2 H (11.5-14.0) % Plt Count 293 (150-450) K/mm3 MPV 9.7 (7.5-11.0) fl PT (9.4-12.5) SECONDS INR (0.8-3.0) Sodium 136 L (137-145) mmol/L Potassium 3.2 L (3.5-5.1) mmol/L Chloride 99 (98-107) mmol/L Carbon Dioxide 24 (22-30) mmol/L Anion Gap 16.2 H (5-15) MEQ/L BUN 11 (7-17) mg/dL Creatinine 0.82 (0.52-1.04) mg/dL Estimated GFR > 60.0 ML/MIN Glucose 114 H (74-106) mg/dL Lactic Acid (0.4-2.0) Calcium 9.3 (8.4-10.2) mg/dL Total Bilirubin 0.90 (0.2-1.3) mg/dL AST 32 (14-36) U/L ALT 22 (0-35) U/L Alkaline Phosphatase 145 H (38-126) U/L Serum Total Protein 7.6 (6.3-8.2) g/dL Albumin 4.1 (3.5-5.0) g/dL Amylase 51 (30-110) U/L Lipase 65 (23-300) U/L Urine Color (YELLOW) Urine Appearance (CLEAR) Urine pH (5-6) Ur Specific Loop (1.005-1.025) Urine Protein (Negative) Urine Ketones (NEGATIVE) Urine Blood (0-5) Jose/ul Urine Nitrite (NEGATIVE) Urine Bilirubin (NEGATIVE) Urine Urobilinogen (0-1) mg/dL Ur Leukocyte Esterase (NEGATIVE) Urine WBC (Auto) (0-5) /HPF Urine RBC (Auto) (0-2) /HPF U Epithel Cells (Auto) (FEW) /HPF Urine Bacteria (Auto) (NEGATIVE) /HPF Urine Culture Reflexed (NO) Urine Glucose (NEGATIVE) mg/dL - Progress Progress Note: 05/23/21 22:21 CAT scan of the abdomen pelvis without contrast shows an enlarging 4.0 x 3.7 cm abdominal aortic aneurysm. There is a small hiatal hernia with mild diffuse fecal stasis. There is sigmoid diverticulosis and a small left renal cyst. No acute intra-abdominal or intrapelvic findings. Counseled pt/family regarding: lab results, diagnosis, need for follow-up, rad results - Departure Departure Disposition: Home Clinical Impression: Constipation, Hypokalemia, Abdominal aortic aneurysm Condition: Stable Critical Care Time: No Referrals: DANY CARY [Primary Care Provider] - Additional Instructions: Drink the bottle of magnesium citrate rapidly at home. Wait approximately 1 hour then give yourself the fleets enema. Follow-up with your primary care doctor tomorrow by phone to make an appointment for further evaluation of your abdominal pain and referral for the abdominal aortic aneurysm that is slightly enlarged.
[2021-05-23] MEDS ORDERED: MORPHINE SULFATE 2 MG INJ IV ONE ×2 (21:37→23:21)
[2021-05-23] MEDS ORDERED: Zofran 4 MG/2 ML VIAL IV ONE (21:37)
[2021-05-23] MEDS ORDERED: Sodium Chloride 0.9% 1000 ML 1,000 ML IV STA (21:37)
[2021-05-23] MEDS ORDERED: LOPRESSOR 5 MG/5 ML INJECTION IV ONE ×2 (21:40→21:55)
[2021-05-23] MEDS ORDERED: Zofran 4 MG/2 ML VIAL ONE (21:55)
[2021-05-23] MEDS ORDERED: MORPHINE SULFATE 2 MG INJ ONE ×2 (21:56→23:37)
[2021-05-23] MEDS ORDERED: Sodium Chloride 0.9% 1000 ML 1,000 ML ONE (21:56)
[2021-05-23 22:09] LABS: Hematocrit 34.3 % (35-47); Hemoglobin 11.2 gm/dl (12.0-16.0); Mean Cell Volume 84.1 fl (78-100); Mean Corpuscular Hemoglobin 27.5 pg (26-32); Mean Corpuscular Hgb Concent. 32.7 g/dl (32-36); Mean Platelet Volume 9.7 fl (7.5-11.0); Platelet Count 293 K/mm3 (150-450); Red Blood Count 4.08 M/mm3 (4.1-5.4); Red Cell Distribution Width 15.2 % (11.5-14.0); White Blood Count 10.1 K/mm3 (4.0-10.5)
[2021-05-23 22:20] LABS: Appearance CLEAR (CLEAR); Bilirubin NEGATIVE (NEGATIVE); Blood MODERATE Ery/ul (0-5); Epithelial Cells RARE /HPF (FEW); Glucose NEGATIVE (NEGATIVE); Ketones NEGATIVE (NEGATIVE); Leukocyte Esterase TRACE (NEGATIVE); Nitrite NEGATIVE (NEGATIVE); Protein,Urine Dip NEGATIVE (Negative); Specific Gravity 1.005 (1.005-1.025); Urobilinogen 2 mg/dL (0-1)
[2021-05-23 22:25] LABS: INR 1.11 (0.8-3.0); PROTIME 13.1 SECONDS (9.4-12.5)
[2021-05-23 22:33] LABS: ALBUMIN 4.1 g/dL (3.5-5.0); ALKALINE PHOSPHATASE 145 U/L (38-126); AMYLASE 51 U/L (30-110); ANION GAP 16.2 MEQ/L (5-15); BLOOD UREA NITROGEN 11 mg/dL (7-17); CHLORIDE 99 mmol/L (98-107); Calcium 9.3 mg/dL (8.4-10.2); Carbon Dioxide 24 mmol/L (22-30); Creatinine 1 0.82 mg/dL (0.52-1.04); EST GLOMERULAR FILTRATION RATE > 60.0 ML/MIN; Glucose 114 mg/dL (74-106); LIPASE 65 U/L (23-300); Potassium 3.2 mmol/L (3.5-5.1); SGOT/AST 32 U/L (14-36); SGPT/ALT 22 U/L (0-35); SODIUM 136 mmol/L (137-145); Total Protein 7.6 g/dL (6.3-8.2)
[2021-05-23] MEDS ORDERED: Klor Con 10 MEQ PO ONE ×2 (23:11→23:37)
[2021-05-23] MEDS ORDERED: CITROMA 296 ML PO ONE (23:14)
[2021-05-23] MEDS ORDERED: CITROMA 296 ML ONE (23:37)
[2021-05-24 00:05] VITALS: BP 172/98; PULSE 101; O2SAT 94
[2021-05-24 00:26] LABS: BAND 3 % (0.0-2.0); Lymphocytes 28 % (24-44); Monocyte 9 % (0.0-12.0); Neutrophils 60 % (36.0-66.0); Platelet Estimate NORMAL (NORMAL); Total Cells Counted 100
--- NOTE | 2021-05-24 08:41 | XRAY ---
Indication: Abdomen pain, nausea, and vomiting. Multiple contiguous axial images obtained through the abdomen and pelvis without contrast. Comparison: January 18, 2020. Lung bases again demonstrate scattered fibrosis/scarring. No focal infiltrate or effusion. Heart not enlarged. Stable small hiatal hernia. Noncontrasted stomach and bowel loops nonobstructed again with mild diffuse scattered colonic fecal debris throughout and sigmoid diverticulosis. No free fluid/air. Stable small left lower pole renal cyst, cholecystomy clips, and splenic calcified granulomas. Remaining liver, pancreas, spleen, adrenal glands, kidneys, ureters, and bladder are unremarkable for noncontrast exam. Again heavy scattered vascular calcifications with slightly enlarging distal AAA measuring 4.0 x 3.7 cm, previously 3.6 x 3.6 cm. Osseous structures intact again with osteopenia, mild degenerative changes, and old fractures of the left iliac crest/proximal left femur with orthopedic hardware. Impression: 1. Slightly enlarging distal AAA. 2. Again small hiatal hernia, mild diffuse fecal stasis, left renal cyst, chronic bony findings, and old granulomatous disease.
== END 2021-05-24 00:10 | disposition home or self-care (01) ==
LOC: ED 21:09
DX: K59.00 Constipation, unspecified (principal); P74.32 Hypokalemia of newborn; I71.4 Abdominal aortic aneurysm, without rupture; Z79.899 Other long term (current) drug therapy
CPT/HCPCS: 36000; 36415; 74176; 80053; 81001; 82150; 83605; 83690; 85025; 85610; 96374; 96375; 96376; 99284; J2270; J2405; A9270-GY

== ENCOUNTER 2021-08-22 10:48 | Observation (INO) | payer MEDICARE ==
[2021-08-22] MEDS ORDERED: Sodium Chloride 0.9% 1000 ML 1,000 ML IV STA (11:15)
[2021-08-22] MEDS ORDERED: Zofran 4 MG/2 ML VIAL IV ONE (11:15)
[2021-08-22] MEDS ORDERED: Sodium Chloride 0.9% 1000 ML 1,000 ML ONE (11:24)
[2021-08-22] MEDS ORDERED: Zofran 4 MG/2 ML VIAL ONE (11:24)
--- NOTE | 2021-08-22 11:29 | ERPHSYRPT ---
- History of Present Illness Time Seen by Provider: 08/22/21 10:51 Source: patient, EMS, other Exam Limitations: no limitations Patient Subjective Stated Complaint: Patient states she was at the doctor's office waiting to get a flu and pneumonia vaccine when she suddenly became dizzy and thought she would "blackout." Patient indicates she was sitting in a chair at the time this started. Denies any pain or recent standing prior to incident. States dizziness is causing N/V. Also states she has a history of B/P getting to low. Triage Nursing Assessment: Patient arrived by ambulance to ED. Patient alert and answering questions appropriately. Patient vomited X 1 in the ambulance and X 1 upon arriving to the ED. Patient's skin is pale, cool, moist. Pupils PERRL with current size of 2mm. Patient closing eyes towards end of assessment stating that her head has beginning to hurt now. BUE WNL. She is able to move BLE WNL but patient states they "feel a little weak" right now. Physician History: 66 years old female with multiple medical problems including coronary artery disease, congestive heart failure, COPD, tobacco abuse, hypertension, hyperlipidemia presented in the ER from primary care office after she got dizzy/lightheaded while sitting there for her routine vaccinations. Patient reports she took her antihypertensive before PCP visit and does have history of going hypotension in the past. Patient reports she started feeling lightheaded as if she was going to pass out. Was sweating and got nausea with 2 episodes of nonprojectile, nonbilious vomiting. Denies any abdominal pain, chest pain rotations or shortness of breath. Does report having mild headache now and does have history of migraines. Denies any visual disturbance, focal numbness/weakness/difficulty speech etc. No recent sick contact. Patient reports she feels weak fatigued and tired all over. Timing/Duration: sudden, improved Severity: moderate Modifying Factors: Improves With: rest Associated Symptoms: nausea, vomiting, headaches, weakness, No loss of appetite, No syncope, No seizure Allergies/Adverse Reactions: No Known Drug Allergies Allergy (Verified 08/22/21 10:52) Home Medications: Albuterol 8 gm Mdi Hfa [Ventolin Hfa MDI] 2 puffs IH Q4H PRN PRN 08/02/15 [History] cloNIDine HCL [Catapres] 0.3 mg PO TID 07/28/18 [History] Atorvastatin Calcium [Lipitor] 40 mg PO DAILY 12/06/18 [History] Albuterol Sulfate 1 amp IH QID PRN PRN 11/12/20 [History] Carvedilol 12.5 mg [Coreg 12.5 mg] 12.5 mg PO BID 11/12/20 [History] Apixaban [Eliquis] 5 mg PO DAILY 05/23/21 [History] Famotidine 20 mg [Pepcid 20 MG] 20 mg PO DAILY 05/23/21 [History] Furosemide 40 mg [Lasix 40 MG] 20 mg PO DAILY 05/23/21 [History] Isosorbide Mononitrate [Isosorbide Mononitrate ER] 30 mg PO DAILY 05/23/21 [History] Magnesium Oxide 400 mg [Mag-Ox 400] 400 mg PO DAILY 05/23/21 [History] Metformin HCl [Glucophage] 1,000 mg PO BID 05/23/21 [History] Potassium Chloride 10 Meq Tab* [Klor Con 10 MEQ] 10 meq PO DAILY 05/23/21 [History] Hx Tetanus, Diphtheria Vaccination/Date Given: No Hx Influenza Vaccination/Date Given: No Hx Pneumococcal Vaccination/Date Given: No Immunizations Up to Date: Yes Travel Risk - International Travel Have you traveled outside of the country in past 3 weeks: No - Coronavirus Screening Are you exhibiting any of the following symptoms?: Yes Symptoms: Vomiting/Diarrhea Close contact with a COVID-19 positive Pt in past 14-21 Days: No - Vaccine Status Have you recieved a Covid-19 vaccination: Yes [employer]: Moderna - Vaccination Dates Date of 2cond Vaccination (if applicable): March 2021 - Review of Systems Constitutional: Fatigue, Weakness Eyes: No Symptoms Ears, Nose, & Throat: No Symptoms Respiratory: No Symptoms Cardiac: No Symptoms Abdominal/Gastrointestinal: Nausea, Vomiting Genitourinary Symptoms: No Symptoms Musculoskeletal: No Symptoms Skin: No Symptoms Neurological: Dizziness, Headache Psychological: No Symptoms Endocrine: No Symptoms Hematologic/Lymphatic: No Symptoms Immunological/Allergic: No Symptoms - Past Medical History Pertinent Past Medical History: Yes Neurological History: Migraines ENT History: No Pertinent History Cardiac History: Congestive Heart Failure, High Cholesterol, Hypertension Respiratory History: Asthma, CHF, COPD, Emphysema, Other Endocrine Medical History: No Pertinent History Musculoskeletal History: Arthritis GI Medical History: GERD, Gallbladder Disease History: No Pertinent History Psycho-Social History: Anxiety Female Reproductive Disorders: No Pertinent History Other Medical History: 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 - Past Surgical History Past Surgical History: Yes Neuro Surgical History: No Pertinent History Cardiac: No Pertinent History Respiratory: No Pertinent History Gastrointestinal: Cholecystectomy Genitourinary: No Pertinent History Musculoskeletal: Orthopedic Surgery Female Surgical History: Hysterectomy Other Surgical History: right knee replacement, screw in pelvis, misha in left leg - Social History Smoking Status: Current every day smoker How long have you smoked: 47 Exposure to second hand smoke: Yes Drug Use: none Patient Lives Alone: Yes - Female History Hx Now: No - Nursing Vital Signs Nursing Vital Signs: Initial Vital Signs Temperature 97.5 F 08/22/21 10:55 Pulse Rate 78 08/22/21 10:55 Respiratory Rate 23 08/22/21 10:55 Blood Pressure 105/71 08/22/21 10:55 O2 Sat by Pulse Oximetry 92 L 08/22/21 10:55 Pain Scale Pain Intensity 0 - Physical Exam General Appearance: no apparent distress, alert Eye Exam: PERRL/EOMI, eyes nml inspection Ears, Nose, Throat Exam: normal ENT inspection, TMs normal, pharynx normal Neck Exam: normal inspection, non-tender, supple, full range of motion Respiratory Exam: normal breath sounds, lungs clear Cardiovascular Exam: regular rate/rhythm, normal heart sounds Gastrointestinal/Abdomen Exam: soft, normal bowel sounds, No tenderness Back Exam: normal inspection, normal range of motion Extremity Exam: normal inspection, normal range of motion, pelvis stable Neurologic Exam: alert, oriented x 3, cooperative, arterial embalmer II-XII nml as tested, nml cerebellar function, sensation nml, No normal mood/affect (Flat), No motor deficits Skin Exam: normal color SpO2 Interpretation: normal SpO2: 92 O2 Delivery: Room Air Ordered Tests: Active Orders 24 hr Category Date Time Status EKG-ER Only STAT Care 08/22/21 11:15 Active IV Insertion STAT Care 08/22/21 11:15 Active Orthostatic Vital Signs STAT Care 08/22/21 11:15 Active POCT Glucose Check STAT Care 08/22/21 11:15 Active CHEST 1 VIEW (PORTABLE) Stat Exams 08/22/21 11:15 Completed HEAD WITHOUT CONTRAST [CT] Stat Exams 08/22/21 11:16 Completed BNP [NT PRO BNP] Stat Lab 08/22/21 12:00 Completed CBC W DIFF Stat Lab 08/22/21 11:15 Completed CMP Stat Lab 08/22/21 12:00 Completed CULTURE,URINE Stat Lab 08/22/21 12:47 Received Lactic Acid Stat Lab 08/22/21 11:15 Completed MAGNESIUM Stat Lab 08/22/21 12:00 Completed POCT GLUCOSE Stat Lab 08/22/21 11:21 Completed TROPONIN Q3H Lab 08/22/21 11:15 Completed TROPONIN Q3H Lab 08/22/21 14:15 Ordered TROPONIN Q3H Lab 08/22/21 17:15 Ordered TROPONIN Q3H Lab 08/22/21 20:15 Ordered TROPONIN Q3H Lab 08/22/21 23:15 Ordered UA W/RFX UR CULTURE Stat Lab 08/22/21 12:47 Completed Medication Summary Generic Name Dose Route Start Last Admin Trade Name Thu PRN Reason Stop Dose Admin Ceftriaxone Sodium/Dextrose 2 g in 50 mls @ 100 mls/hr 08/22/21 13:25 Rocephin 2 Gm-D5w 50ml Bag IV 08/22/21 13:54 STAT STA Discontinued Medications Generic Name Dose Route Start Last Admin Trade Name Freq PRN Reason Stop Dose Admin Sodium Chloride 1,000 mls @ 999 mls/hr 08/22/21 11:15 08/22/21 12:32 Sodium Chloride 0.9% 1000 Ml IV 08/22/21 12:15 Infused .Q1H1M STA Infusion Sodium Chloride Confirm 08/22/21 11:24 Sodium Chloride 0.9% 1000 Ml Administered 08/22/21 11:25 Dose 1,000 mls @ ud .ROUTE .STK-MED ONE Ondansetron HCl 4 mg 08/22/21 11:15 08/22/21 11:27 Ondansetron Hcl 4 Mg/2 Ml Vial IV 08/22/21 11:16 4 mg STAT ONE Administration Ondansetron HCl Confirm 08/22/21 11:24 Ondansetron Hcl 4 Mg/2 Ml Vial Administered 08/22/21 11:25 Dose 4 mg .ROUTE .STK-MED ONE Lab/Rad Data: Laboratory Result Diagrams 08/22/21 11:15 08/22/21 12:00 Laboratory Results 08/22/21 08/22/21 08/22/21 Range/Units 12:47 12:00 12:00 WBC (4.0-10.5) K/mm3 RBC (4.1-5.4) M/mm3 Hgb (12.0-16.0) gm/dl Hct (35-47) % MCV (78-100) fl MCH (26-32) pg MCHC (32-36) g/dl RDW (11.5-14.0) % Plt Count (150-450) K/mm3 MPV (7.5-11.0) fl Gran % (36.0-66.0) % Eos # (Auto) (0-0.5) Absolute Lymphs (auto) (1.0-4.6) Absolute Monos (auto) (0.0-1.3) Lymphocytes % (24.0-44.0) % Monocytes % (0.0-12.0) % Eosinophils % (0.00-5.0) % Basophils % (0.0-0.4) % Absolute Granulocytes (1.4-6.9) Basophils # (0-0.4) Sodium 137 (137-145) mmol/L Potassium 3.9 (3.5-5.1) mmol/L Chloride 102 (98-107) mmol/L Carbon Dioxide 28 (22-30) mmol/L Anion Gap 12.1 (5-15) MEQ/L BUN 17 (7-17) mg/dL Creatinine 1.03 (0.52-1.04) mg/dL Estimated GFR 56.6 ML/MIN Glucose 112 H (74-106) mg/dL POC Glucometer (74 to 106) mg/dL Lactic Acid (0.4-2.0) Calcium 9.0 (8.4-10.2) mg/dL Magnesium 2.0 (1.6-2.3) mg/dL Total Bilirubin 0.50 (0.2-1.3) mg/dL AST 16 (14-36) U/L ALT 15 (0-35) U/L Alkaline Phosphatase 84 (38-126) U/L Troponin I (0.000-0.034) ng/mL NT-Pro-B Natriuret Pep 6730 H (0-900) pg/mL Serum Total Protein 6.4 (6.3-8.2) g/dL Albumin 3.6 (3.5-5.0) g/dL Urine Color TITI (YELLOW) Urine Appearance SLIGHTLY CLOUDY (CLEAR) Urine pH 7.0 (5-6) Ur Specific [place] 1.016 (1.005-1.025) Urine Protein NEGATIVE (Negative) Urine Ketones NEGATIVE (NEGATIVE) Urine Blood NEGATIVE (0-5) Jose/ul Urine Nitrite POSITIVE (NEGATIVE) Urine Bilirubin NEGATIVE (NEGATIVE) Urine Urobilinogen 4 (0-1) mg/dL Ur Leukocyte Esterase TRACE (NEGATIVE) Urine WBC (Auto) 3-5 (0-5) /HPF Urine RBC (Auto) 0-2 (0-2) /HPF U Epithel Cells (Auto) RARE (FEW) /HPF Urine Bacteria (Auto) MANY (NEGATIVE) /HPF Amorphous Crystals FEW (NEGATIVE) /HPF Urine Mucus (Auto) SLIGHT (NEGATIVE) /HPF Urine Culture Reflexed YES (NO) Urine Glucose NEGATIVE (NEGATIVE) mg/dL 08/22/21 08/22/21 08/22/21 Range/Units 11:21 11:15 11:15 WBC 7.3 (4.0-10.5) K/mm3 RBC 4.60 (4.1-5.4) M/mm3 Hgb 12.4 (12.0-16.0) gm/dl Hct 39.9 (35-47) % MCV 86.7 (78-100) fl MCH 27.0 (26-32) pg MCHC 31.1 L (32-36) g/dl RDW 14.9 H (11.5-14.0) % Plt Count 238 (150-450) K/mm3 MPV 9.8 (7.5-11.0) fl Gran % 62.6 (36.0-66.0) % Eos # (Auto) 0.08 (0-0.5) Absolute Lymphs (auto) 1.93 (1.0-4.6) Absolute Monos (auto) 0.69 (0.0-1.3) Lymphocytes % 26.5 (24.0-44.0) % Monocytes % 9.5 (0.0-12.0) % Eosinophils % 1.1 (0.00-5.0) % Basophils % 0.3 (0.0-0.4) % Absolute Granulocytes 4.57 (1.4-6.9) Basophils # 0.02 (0-0.4) Sodium (137-145) mmol/L Potassium (3.5-5.1) mmol/L Chloride (98-107) mmol/L Carbon Dioxide (22-30) mmol/L Anion Gap (5-15) MEQ/L BUN (7-17) mg/dL Creatinine (0.52-1.04) mg/dL Estimated GFR ML/MIN Glucose (74-106) mg/dL POC Glucometer 133 H (74 to 106) mg/dL Lactic Acid 1.8 (0.4-2.0) Calcium (8.4-10.2) mg/dL Magnesium (1.6-2.3) mg/dL Total Bilirubin (0.2-1.3) mg/dL AST (14-36) U/L ALT (0-35) U/L Alkaline Phosphatase (38-126) U/L Troponin I (0.000-0.034) ng/mL NT-Pro-B Natriuret Pep (0-900) pg/mL Serum Total Protein (6.3-8.2) g/dL Albumin (3.5-5.0) g/dL Urine Color (YELLOW) Urine Appearance (CLEAR) Urine pH (5-6) Ur Specific [place] (1.005-1.025) Urine Protein (Negative) Urine Ketones (NEGATIVE) Urine Blood (0-5) Jose/ul Urine Nitrite (NEGATIVE) Urine Bilirubin (NEGATIVE) Urine Urobilinogen (0-1) mg/dL Ur Leukocyte Esterase (NEGATIVE) Urine WBC (Auto) (0-5) /HPF Urine RBC (Auto) (0-2) /HPF U Epithel Cells (Auto) (FEW) /HPF Urine Bacteria (Auto) (NEGATIVE) /HPF Amorphous Crystals (NEGATIVE) /HPF Urine Mucus (Auto) (NEGATIVE) /HPF Urine Culture Reflexed (NO) Urine Glucose (NEGATIVE) mg/dL 08/22/21 Range/Units 11:15 WBC (4.0-10.5) K/mm3 RBC (4.1-5.4) M/mm3 Hgb (12.0-16.0) gm/dl Hct (35-47) % MCV (78-100) fl MCH (26-32) pg MCHC (32-36) g/dl RDW (11.5-14.0) % Plt Count (150-450) K/mm3 MPV (7.5-11.0) fl Gran % (36.0-66.0) % Eos # (Auto) (0-0.5) Absolute Lymphs (auto) (1.0-4.6) Absolute Monos (auto) (0.0-1.3) Lymphocytes % (24.0-44.0) % Monocytes % (0.0-12.0) % Eosinophils % (0.00-5.0) % Basophils % (0.0-0.4) % Absolute Granulocytes (1.4-6.9) Basophils # (0-0.4) Sodium (137-145) mmol/L Potassium (3.5-5.1) mmol/L Chloride (98-107) mmol/L Carbon Dioxide (22-30) mmol/L Anion Gap (5-15) MEQ/L BUN (7-17) mg/dL Creatinine (0.52-1.04) mg/dL Estimated GFR ML/MIN Glucose (74-106) mg/dL POC Glucometer (74 to 106) mg/dL Lactic Acid (0.4-2.0) Calcium (8.4-10.2) mg/dL Magnesium (1.6-2.3) mg/dL Total Bilirubin (0.2-1.3) mg/dL AST (14-36) U/L ALT (0-35) U/L Alkaline Phosphatase (38-126) U/L Troponin I 0.014 (0.000-0.034) ng/mL NT-Pro-B Natriuret Pep (0-900) pg/mL Serum Total Protein (6.3-8.2) g/dL Albumin (3.5-5.0) g/dL Urine Color (YELLOW) Urine Appearance (CLEAR) Urine pH (5-6) Ur Specific [place] (1.005-1.025) Urine Protein (Negative) Urine Ketones (NEGATIVE) Urine Blood (0-5) Jose/ul Urine Nitrite (NEGATIVE) Urine Bilirubin (NEGATIVE) Urine Urobilinogen (0-1) mg/dL Ur Leukocyte Esterase (NEGATIVE) Urine WBC (Auto) (0-5) /HPF Urine RBC (Auto) (0-2) /HPF U Epithel Cells (Auto) (FEW) /HPF Urine Bacteria (Auto) (NEGATIVE) /HPF Amorphous Crystals (NEGATIVE) /HPF Urine Mucus (Auto) (NEGATIVE) /HPF Urine Culture Reflexed (NO) Urine Glucose (NEGATIVE) mg/dL - Progress Progress: improved, re-examined Progress Note: 08/22/21 13:29 66 years old is evaluated for being hypotensive at clinic and feeling as if she was going to pass out. Her pressure started to improve and was above 90 on presentation, given fluid bolus and currently in 120s. She has grossly nonfocal neuro exam. No acute ST elevations on the EKG, does have some T wave inversion in anterolateral leads but has negative troponins. EKG findings does not seem different from previous and does not seem acute at all. Chest x-ray negative for any acute cardiopulmonary findings. Patient is on Eliquis and I have obtained CT head which is negative for any acute intracranial findings. Grossly unremarkable chemistries. Does have UTI and started on Rocephin. However hypotension could be secondary to taking antihypertensive prior to PCP visit and could be partially from UTI. We will continue with gentle hydration, discussed with Dr. Ardon and patient is being admitted for observation. 08/22/21 13:32 Discussed with : Sofie Will see patient in: hospital (observation) Counseled pt/family regarding: lab results, diagnosis, rad results - Departure Departure Disposition: Observation Clinical Impression: Acute UTI Hypotension Qualifiers: Hypotension type: unspecified hypotension type Qualified Code(s): I95.9 - Hypotension, unspecified Condition: Stable Critical Care Time: No Referrals: DANY GUTHRIE [Primary Care Provider] -
--- NOTE | 2021-08-22 11:46 | XRAY ---
Indication: Dizziness. Multiple contiguous axial images obtained through the head without contrast. Comparison: None Age-appropriate global atrophy and minimal periventricular degenerative micro-ischemia bilaterally. No acute intracranial hemorrhage, abnormal extra-axial fluid collection, or mass effect. Fourth ventricle is midline without hydrocephalus. Bony calvarium intact. There has been right mastoidectomy. Visualized paranasal sinuses and left mastoid air cells are clear. Impression: Nonacute senile brain with incidental right mastoidectomy.
--- NOTE | 2021-08-22 11:48 | XRAY ---
Indication: Dizziness. Comparison: July 24, 2021. Portable chest again demonstrates COPD with scattered fibrosis/scarring. No focal infiltrate, consolidation, or large effusion. Heart borderline enlarged. Bony thorax intact again with osteopenia and degenerative changes. Impression: Nonacute chest with chronic features.
[2021-08-22 12:12] LABS: Absolute Neutrophil Ct (ANC) 4.57 (1.4-6.9); BASOPHIL % 0.3 % (0.0-0.4); Basophil (Absolute #) 0.02 (0-0.4); Eosinophil % 1.1 % (0.00-5.0); Eosinophil (Absolute #) 0.08 (0-0.5); Hematocrit 39.9 % (35-47); Hemoglobin 12.4 gm/dl (12.0-16.0); Lymphocyte (Absolute #) 1.93 (1.0-4.6); Lymphocytes % 26.5 % (24.0-44.0); Mean Cell Volume 86.7 fl (78-100); Mean Corpuscular Hgb Concent. 31.1 g/dl (32-36); Mean Platelet Volume 9.8 fl (7.5-11.0); Monocyte (Absolute #) 0.69 (0.0-1.3); Monocytes % 9.5 % (0.0-12.0); Neutrophil % 62.6 % (36.0-66.0); Platelet Count 238 K/mm3 (150-450); Red Cell Distribution Width 14.9 % (11.5-14.0); White Blood Count 7.3 K/mm3 (4.0-10.5)
[2021-08-22 12:29] LABS: ALBUMIN 3.6 g/dL (3.5-5.0); ANION GAP 12.1 MEQ/L (5-15); BILIRUBIN,TOTAL 0.5 mg/dL (0.2-1.3); Creatinine 1 1.03 mg/dL (0.52-1.04); EST GLOMERULAR FILTRATION RATE 56.6 ML/MIN; Potassium 3.9 mmol/L (3.5-5.1); Total Protein 6.4 g/dL (6.3-8.2)
[2021-08-22] MEDS ORDERED: ROCEPHIN 2 Gm-D5w 50ML BAG** 2 G/50 ML IVPB IV STA (13:25)
[2021-08-22] MEDS ORDERED: ROCEPHIN 2 Gm-D5w 50ML BAG** 2 G/50 ML IVPB IV ONE (13:38)
[2021-08-22 14:08] LABS: Appearance SLIGHTLY CLOUDY (CLEAR); Bilirubin NEGATIVE (NEGATIVE); Blood NEGATIVE Ery/ul (0-5); Epithelial Cells RARE /HPF (FEW); Glucose NEGATIVE (NEGATIVE); Ketones NEGATIVE (NEGATIVE); Leukocyte Esterase SMALL (NEGATIVE); Mucus SLIGHT /HPF (NEGATIVE); Nitrite NEGATIVE (NEGATIVE); Protein,Urine Dip 30 (Negative); RBC 0-2 /HPF (0-2); Specific Gravity 1.019 (1.005-1.025); Urobilinogen 2 mg/dL (0-1)
[2021-08-22] MEDS ORDERED: DUONEB 0.5-3 MG/3 ml Neb IH PRN (17:24)
[2021-08-22] MEDS ORDERED: HUMALOG SQ PRN (17:24)
[2021-08-22] MEDS ORDERED: Zofran 4 MG/2 ML VIAL IV PRN (17:24)
[2021-08-22] MEDS ORDERED: TYLENOL 325 MG PO PRN (17:24)
[2021-08-22] MEDS: Sodium Chloride 0.9% W/ 20 mEq KCl/LITER 1,000 ML IV SCH (18:26)
[2021-08-22] MEDS: PROTONIX 40 MG IV IV SCH (18:26)
[2021-08-22] MEDS: Catapres 0.1 MG PO SCH (21:42)
[2021-08-22] MEDS: Vitamin C 500 MG PO SCH (21:43)
[2021-08-22] MEDS: COREG 12.5 MG PO SCH (21:43)
[2021-08-23 05:31] LABS: ALBUMIN 3.2 g/dL (3.5-5.0); Absolute Neutrophil Ct (ANC) 3.33 (1.4-6.9); BASOPHIL % 0.3 % (0.0-0.4); BILIRUBIN,TOTAL 0.4 mg/dL (0.2-1.3); Basophil (Absolute #) 0.02 (0-0.4); Calcium 8.7 mg/dL (8.4-10.2); Creatinine 1 1.03 mg/dL (0.52-1.04); EST GLOMERULAR FILTRATION RATE 56.6 ML/MIN; Eosinophil % 2.3 % (0.00-5.0); Eosinophil (Absolute #) 0.15 (0-0.5); Hematocrit 37.2 % (35-47); Hemoglobin 11.4 gm/dl (12.0-16.0); Lymphocytes % 37.2 % (24.0-44.0); Mean Cell Volume 87.1 fl (78-100); Mean Corpuscular Hemoglobin 26.7 pg (26-32); Mean Corpuscular Hgb Concent. 30.6 g/dl (32-36); Mean Platelet Volume 9.5 fl (7.5-11.0); Monocyte (Absolute #) 0.55 (0.0-1.3); Monocytes % 8.5 % (0.0-12.0); Neutrophil % 51.7 % (36.0-66.0); Platelet Count 216 K/mm3 (150-450); Potassium 4.3 mmol/L (3.5-5.1); Red Blood Count 4.27 M/mm3 (4.1-5.4); Red Cell Distribution Width 15.1 % (11.5-14.0); Total Protein 5.9 g/dL (6.3-8.2); White Blood Count 6.5 K/mm3 (4.0-10.5)
[2021-08-23 05:59] LABS: ANION GAP 11.3 MEQ/L (5-15)
[2021-08-23] MEDS ORDERED: Ventolin Hfa MDI IH PRN (07:10)
[2021-08-23] MEDS ORDERED: VENTOLIN COMMON CANISTER IH PRN (07:19)
--- NOTE | 2021-08-23 07:19 | PCM.HP.ADD ---
Addendum to History & Physical - History & Physical Addendum Addendum to History & Physical: This certifies that the History & Physical in the electronic chart reflects the current health status of the patient. If there are changes in the H&P these changes/exceptions are listed as follows.
--- NOTE | 2021-08-23 08:39 | PCM.DS ---
Discharge Summary Date of Admission: 08/22/21 17:23 Admitting Physician: DANY GUTHRIE Primary Care Provider: DANY GUTHRIE Allergies Allergies No Known Drug Allergies Allergy (Verified 08/22/21 10:52) Hospital Summary - Hospital Course Hospital Course: Pt is a 66 yo female pt of mine from [facility] with COPD, AAA (last noted to be 3.1cm), HTN, peripheral neuropathy, DM II, and OA who was admitted through ER with hypotension and UTI. She came to see me in office and was hypotensive to 80/44; she was presyncopal and vomited; was also diaphoretic. EMS came and brought her to the ER. UA revealed UTI; for some reason UCx was cancelled in the computer, but lab actually did start a culture due to the urine results (I re-ordered the culture this morning). Today she is feeling better. Has cough, but states it's her usual cough. She wanted a refill on duonebs when she came to office yesterday, so I am filling those. Also wanted flu and PNA shots, so she will get those here as appropriate. Her BP have been wnl since coming to the floor. If she is doing well with respect to BP and being up out of bed, she may be able to discharge to home later today. However, if not feeling well would go ahead and keep another day on IV fluids and IV antibiotics. She's quite wheezy on exam this morning; states she's always wheezy in the morning. Will start her on 40mg prednisone po. - Vitals & Intake/Output Vital Signs: Vital Signs Temperature 98.0 F 08/23/21 08:00 Pulse Rate 90 08/23/21 08:00 Respiratory Rate 18 08/23/21 08:00 Blood Pressure 141/97 08/23/21 08:00 O2 Sat by Pulse Oximetry 94 L 08/23/21 08:00 Intake & Output: Intake & Output 08/20/21 08/21/21 08/22/21 08/23/21 11:59 11:59 11:59 11:59 Intake Total 1602 Balance 1602 Weight 71.9 kg 71.9 kg - Lab Result Diagrams: 08/23/21 05:05 08/23/21 05:05 Lab Results-Last 24 Hrs: Lab Results-Last 24 Hours 08/22/21 08/22/21 08/22/21 Range/Units 11:15 11:15 11:15 WBC 7.3 (4.0-10.5) K/mm3 RBC 4.60 (4.1-5.4) M/mm3 Hgb 12.4 (12.0-16.0) gm/dl Hct 39.9 (35-47) % MCV 86.7 (78-100) fl MCH 27.0 (26-32) pg MCHC 31.1 L (32-36) g/dl RDW 14.9 H (11.5-14.0) % Plt Count 238 (150-450) K/mm3 MPV 9.8 (7.5-11.0) fl Gran % 62.6 (36.0-66.0) % Eos # (Auto) 0.08 (0-0.5) Absolute Lymphs (auto) 1.93 (1.0-4.6) Absolute Monos (auto) 0.69 (0.0-1.3) Lymphocytes % 26.5 (24.0-44.0) % Monocytes % 9.5 (0.0-12.0) % Eosinophils % 1.1 (0.00-5.0) % Basophils % 0.3 (0.0-0.4) % Absolute Granulocytes 4.57 (1.4-6.9) Basophils # 0.02 (0-0.4) Sodium (137-145) mmol/L Potassium (3.5-5.1) mmol/L Chloride (98-107) mmol/L Carbon Dioxide (22-30) mmol/L Anion Gap (5-15) MEQ/L BUN (7-17) mg/dL Creatinine (0.52-1.04) mg/dL Estimated GFR ML/MIN Glucose (74-106) mg/dL POC Glucometer (74 to 106) mg/dL Lactic Acid 1.8 (0.4-2.0) Calcium (8.4-10.2) mg/dL Magnesium (1.6-2.3) mg/dL Total Bilirubin (0.2-1.3) mg/dL AST (14-36) U/L ALT (0-35) U/L Alkaline Phosphatase (38-126) U/L Troponin I 0.014 (0.000-0.034) ng/mL NT-Pro-B Natriuret Pep (0-900) pg/mL Serum Total Protein (6.3-8.2) g/dL Albumin (3.5-5.0) g/dL Urine Color (YELLOW) Urine Appearance (CLEAR) Urine pH (5-6) Ur Specific [place] (1.005-1.025) Urine Protein (Negative) Urine Ketones (NEGATIVE) Urine Blood (0-5) Jose/ul Urine Nitrite (NEGATIVE) Urine Bilirubin (NEGATIVE) Urine Urobilinogen (0-1) mg/dL Ur Leukocyte Esterase (NEGATIVE) Urine WBC (Auto) (0-5) /HPF Urine RBC (Auto) (0-2) /HPF U Hyaline Cast (Auto) (0-2) /LPF U Epithel Cells (Auto) (FEW) /HPF Urine Bacteria (Auto) (NEGATIVE) /HPF U Non-Squamous Epi Cells Calcium Oxalate Crystal Leucine Crystals Cystine Crystals Uric Acid Cryst (Auto) Triple Phos Crystals Amorphous Crystals Fatty Casts Granular Casts (Auto) Waxy Casts (Auto) RBC Casts (Auto) WBC Casts Urine Mucus (Auto) (NEGATIVE) /HPF U Trichomonas (Auto) Urine Yeast (Auto) Ur Yeast w Hyphae Urine Yeast (Budding) Urine Sperm (Auto) Ur Oval Fat Bodies Auto Urine Culture Reflexed Urine Glucose (NEGATIVE) mg/dL SARS-CoV-2 (PCR) (NEGATIVE) 08/22/21 08/22/21 08/22/21 Range/Units 11:21 12:00 12:00 WBC (4.0-10.5) K/mm3 RBC (4.1-5.4) M/mm3 Hgb (12.0-16.0) gm/dl Hct (35-47) % MCV (78-100) fl MCH (26-32) pg MCHC (32-36) g/dl RDW (11.5-14.0) % Plt Count (150-450) K/mm3 MPV (7.5-11.0) fl Gran % (36.0-66.0) % Eos # (Auto) (0-0.5) Absolute Lymphs (auto) (1.0-4.6) Absolute Monos (auto) (0.0-1.3) Lymphocytes % (24.0-44.0) % Monocytes % (0.0-12.0) % Eosinophils % (0.00-5.0) % Basophils % (0.0-0.4) % Absolute Granulocytes (1.4-6.9) Basophils # (0-0.4) Sodium 137 (137-145) mmol/L Potassium 3.9 (3.5-5.1) mmol/L Chloride 102 (98-107) mmol/L Carbon Dioxide 28 (22-30) mmol/L Anion Gap 12.1 (5-15) MEQ/L BUN 17 (7-17) mg/dL Creatinine 1.03 (0.52-1.04) mg/dL Estimated GFR 56.6 ML/MIN Glucose 112 H (74-106) mg/dL POC Glucometer 133 H (74 to 106) mg/dL Lactic Acid (0.4-2.0) Calcium 9.0 (8.4-10.2) mg/dL Magnesium 2.0 (1.6-2.3) mg/dL Total Bilirubin 0.50 (0.2-1.3) mg/dL AST 16 (14-36) U/L ALT 15 (0-35) U/L Alkaline Phosphatase 84 (38-126) U/L Troponin I (0.000-0.034) ng/mL NT-Pro-B Natriuret Pep 6730 H (0-900) pg/mL Serum Total Protein 6.4 (6.3-8.2) g/dL Albumin 3.6 (3.5-5.0) g/dL Urine Color (YELLOW) Urine Appearance (CLEAR) Urine pH (5-6) Ur Specific [place] (1.005-1.025) Urine Protein (Negative) Urine Ketones (NEGATIVE) Urine Blood (0-5) Jose/ul Urine Nitrite (NEGATIVE) Urine Bilirubin (NEGATIVE) Urine Urobilinogen (0-1) mg/dL Ur Leukocyte Esterase (NEGATIVE) Urine WBC (Auto) (0-5) /HPF Urine RBC (Auto) (0-2) /HPF U Hyaline Cast (Auto) (0-2) /LPF U Epithel Cells (Auto) (FEW) /HPF Urine Bacteria (Auto) (NEGATIVE) /HPF U Non-Squamous Epi Cells Calcium Oxalate Crystal Leucine Crystals Cystine Crystals Uric Acid Cryst (Auto) Triple Phos Crystals Amorphous Crystals Fatty Casts Granular Casts (Auto) Waxy Casts (Auto) RBC Casts (Auto) WBC Casts Urine Mucus (Auto) (NEGATIVE) /HPF U Trichomonas (Auto) Urine Yeast (Auto) Ur Yeast w Hyphae Urine Yeast (Budding) Urine Sperm (Auto) Ur Oval Fat Bodies Auto Urine Culture Reflexed Urine Glucose (NEGATIVE) mg/dL SARS-CoV-2 (PCR) (NEGATIVE) 08/22/21 08/22/21 08/22/21 Range/Units 12:45 12:47 14:02 WBC (4.0-10.5) K/mm3 RBC (4.1-5.4) M/mm3 Hgb (12.0-16.0) gm/dl Hct (35-47) % MCV (78-100) fl MCH (26-32) pg MCHC (32-36) g/dl RDW (11.5-14.0) % Plt Count (150-450) K/mm3 MPV (7.5-11.0) fl Gran % (36.0-66.0) % Eos # (Auto) (0-0.5) Absolute Lymphs (auto) (1.0-4.6) Absolute Monos (auto) (0.0-1.3) Lymphocytes % (24.0-44.0) % Monocytes % (0.0-12.0) % Eosinophils % (0.00-5.0) % Basophils % (0.0-0.4) % Absolute Granulocytes (1.4-6.9) Basophils # (0-0.4) Sodium (137-145) mmol/L Potassium (3.5-5.1) mmol/L Chloride (98-107) mmol/L Carbon Dioxide (22-30) mmol/L Anion Gap (5-15) MEQ/L BUN (7-17) mg/dL Creatinine (0.52-1.04) mg/dL Estimated GFR ML/MIN Glucose (74-106) mg/dL POC Glucometer (74 to 106) mg/dL Lactic Acid (0.4-2.0) Calcium (8.4-10.2) mg/dL Magnesium (1.6-2.3) mg/dL Total Bilirubin (0.2-1.3) mg/dL AST (14-36) U/L ALT (0-35) U/L Alkaline Phosphatase (38-126) U/L Troponin I < 0.012 (0.000-0.034) ng/mL NT-Pro-B Natriuret Pep (0-900) pg/mL Serum Total Protein (6.3-8.2) g/dL Albumin (3.5-5.0) g/dL Urine Color Cancelled (YELLOW) Urine Appearance SLIGHTLY CLOUDY Cancelled (CLEAR) Urine pH 6.0 Cancelled (5-6) Ur Specific [place] 1.019 Cancelled (1.005-1.025) Urine Protein 30 Cancelled (Negative) Urine Ketones NEGATIVE Cancelled (NEGATIVE) Urine Blood NEGATIVE Cancelled (0-5) Jose/ul Urine Nitrite NEGATIVE Cancelled (NEGATIVE) Urine Bilirubin NEGATIVE Cancelled (NEGATIVE) Urine Urobilinogen 2 Cancelled (0-1) mg/dL Ur Leukocyte Esterase SMALL Cancelled (NEGATIVE) Urine WBC (Auto) 3-5 Cancelled (0-5) /HPF Urine RBC (Auto) 0-2 Cancelled (0-2) /HPF U Hyaline Cast (Auto) 6-10 Cancelled (0-2) /LPF U Epithel Cells (Auto) RARE Cancelled (FEW) /HPF Urine Bacteria (Auto) NONE Cancelled (NEGATIVE) /HPF U Non-Squamous Epi Cells Cancelled Calcium Oxalate Crystal Cancelled Leucine Crystals Cancelled Cystine Crystals Cancelled Uric Acid Cryst (Auto) Cancelled Triple Phos Crystals Cancelled Amorphous Crystals Cancelled Fatty Casts Cancelled Granular Casts (Auto) Cancelled Waxy Casts (Auto) Cancelled RBC Casts (Auto) Cancelled WBC Casts Cancelled Urine Mucus (Auto) SLIGHT Cancelled (NEGATIVE) /HPF U Trichomonas (Auto) Cancelled Urine Yeast (Auto) Cancelled Ur Yeast w Hyphae Cancelled Urine Yeast (Budding) Cancelled Urine Sperm (Auto) Cancelled Ur Oval Fat Bodies Auto Cancelled Urine Culture Reflexed Cancelled Urine Glucose NEGATIVE Cancelled (NEGATIVE) mg/dL SARS-CoV-2 (PCR) (NEGATIVE) 08/22/21 08/22/21 08/22/21 Range/Units 14:54 17:55 19:59 WBC (4.0-10.5) K/mm3 RBC (4.1-5.4) M/mm3 Hgb (12.0-16.0) gm/dl Hct (35-47) % MCV (78-100) fl MCH (26-32) pg MCHC (32-36) g/dl RDW (11.5-14.0) % Plt Count (150-450) K/mm3 MPV (7.5-11.0) fl Gran % (36.0-66.0) % Eos # (Auto) (0-0.5) Absolute Lymphs (auto) (1.0-4.6) Absolute Monos (auto) (0.0-1.3) Lymphocytes % (24.0-44.0) % Monocytes % (0.0-12.0) % Eosinophils % (0.00-5.0) % Basophils % (0.0-0.4) % Absolute Granulocytes (1.4-6.9) Basophils # (0-0.4) Sodium (137-145) mmol/L Potassium (3.5-5.1) mmol/L Chloride (98-107) mmol/L Carbon Dioxide (22-30) mmol/L Anion Gap (5-15) MEQ/L BUN (7-17) mg/dL Creatinine (0.52-1.04) mg/dL Estimated GFR ML/MIN Glucose (74-106) mg/dL POC Glucometer (74 to 106) mg/dL Lactic Acid (0.4-2.0) Calcium (8.4-10.2) mg/dL Magnesium (1.6-2.3) mg/dL Total Bilirubin (0.2-1.3) mg/dL AST (14-36) U/L ALT (0-35) U/L Alkaline Phosphatase (38-126) U/L Troponin I < 0.012 < 0.012 (0.000-0.034) ng/mL NT-Pro-B Natriuret Pep (0-900) pg/mL Serum Total Protein (6.3-8.2) g/dL Albumin (3.5-5.0) g/dL Urine Color (YELLOW) Urine Appearance (CLEAR) Urine pH (5-6) Ur Specific [place] (1.005-1.025) Urine Protein (Negative) Urine Ketones (NEGATIVE) Urine Blood (0-5) Jose/ul Urine Nitrite (NEGATIVE) Urine Bilirubin (NEGATIVE) Urine Urobilinogen (0-1) mg/dL Ur Leukocyte Esterase (NEGATIVE) Urine WBC (Auto) (0-5) /HPF Urine RBC (Auto) (0-2) /HPF U Hyaline Cast (Auto) (0-2) /LPF U Epithel Cells (Auto) (FEW) /HPF Urine Bacteria (Auto) (NEGATIVE) /HPF U Non-Squamous Epi Cells Calcium Oxalate Crystal Leucine Crystals Cystine Crystals Uric Acid Cryst (Auto) Triple Phos Crystals Amorphous Crystals Fatty Casts Granular Casts (Auto) Waxy Casts (Auto) RBC Casts (Auto) WBC Casts Urine Mucus (Auto) (NEGATIVE) /HPF U Trichomonas (Auto) Urine Yeast (Auto) Ur Yeast w Hyphae Urine Yeast (Budding) Urine Sperm (Auto) Ur Oval Fat Bodies Auto Urine Culture Reflexed Urine Glucose (NEGATIVE) mg/dL SARS-CoV-2 (PCR) NEGATIVE (NEGATIVE) 08/22/21 08/22/21 08/23/21 Range/Units 20:45 23:29 05:05 WBC 6.5 (4.0-10.5) K/mm3 RBC 4.27 (4.1-5.4) M/mm3 Hgb 11.4 L (12.0-16.0) gm/dl Hct 37.2 (35-47) % MCV 87.1 (78-100) fl MCH 26.7 (26-32) pg MCHC 30.6 L (32-36) g/dl RDW 15.1 H (11.5-14.0) % Plt Count 216 (150-450) K/mm3 MPV 9.5 (7.5-11.0) fl Gran % 51.7 (36.0-66.0) % Eos # (Auto) 0.15 (0-0.5) Absolute Lymphs (auto) 2.40 (1.0-4.6) Absolute Monos (auto) 0.55 (0.0-1.3) Lymphocytes % 37.2 (24.0-44.0) % Monocytes % 8.5 (0.0-12.0) % Eosinophils % 2.3 (0.00-5.0) % Basophils % 0.3 (0.0-0.4) % Absolute Granulocytes 3.33 (1.4-6.9) Basophils # 0.02 (0-0.4) Sodium (137-145) mmol/L Potassium (3.5-5.1) mmol/L Chloride (98-107) mmol/L Carbon Dioxide (22-30) mmol/L Anion Gap (5-15) MEQ/L BUN (7-17) mg/dL Creatinine (0.52-1.04) mg/dL Estimated GFR ML/MIN Glucose (74-106) mg/dL POC Glucometer 165 H (74 to 106) mg/dL Lactic Acid (0.4-2.0) Calcium (8.4-10.2) mg/dL Magnesium (1.6-2.3) mg/dL Total Bilirubin (0.2-1.3) mg/dL AST (14-36) U/L ALT (0-35) U/L Alkaline Phosphatase (38-126) U/L Troponin I 0.014 (0.000-0.034) ng/mL NT-Pro-B Natriuret Pep (0-900) pg/mL Serum Total Protein (6.3-8.2) g/dL Albumin (3.5-5.0) g/dL Urine Color (YELLOW) Urine Appearance (CLEAR) Urine pH (5-6) Ur Specific [place] (1.005-1.025) Urine Protein (Negative) Urine Ketones (NEGATIVE) Urine Blood (0-5) Jose/ul Urine Nitrite (NEGATIVE) Urine Bilirubin (NEGATIVE) Urine Urobilinogen (0-1) mg/dL Ur Leukocyte Esterase (NEGATIVE) Urine WBC (Auto) (0-5) /HPF Urine RBC (Auto) (0-2) /HPF U Hyaline Cast (Auto) (0-2) /LPF U Epithel Cells (Auto) (FEW) /HPF Urine Bacteria (Auto) (NEGATIVE) /HPF U Non-Squamous Epi Cells Calcium Oxalate Crystal Leucine Crystals Cystine Crystals Uric Acid Cryst (Auto) Triple Phos Crystals Amorphous Crystals Fatty Casts Granular Casts (Auto) Waxy Casts (Auto) RBC Casts (Auto) WBC Casts Urine Mucus (Auto) (NEGATIVE) /HPF U Trichomonas (Auto) Urine Yeast (Auto) Ur Yeast w Hyphae Urine Yeast (Budding) Urine Sperm (Auto) Ur Oval Fat Bodies Auto Urine Culture Reflexed Urine Glucose (NEGATIVE) mg/dL SARS-CoV-2 (PCR) (NEGATIVE) 08/23/21 Range/Units 05:05 WBC (4.0-10.5) K/mm3 RBC (4.1-5.4) M/mm3 Hgb (12.0-16.0) gm/dl Hct (35-47) % MCV (78-100) fl MCH (26-32) pg MCHC (32-36) g/dl RDW (11.5-14.0) % Plt Count (150-450) K/mm3 MPV (7.5-11.0) fl Gran % (36.0-66.0) % Eos # (Auto) (0-0.5) Absolute Lymphs (auto) (1.0-4.6) Absolute Monos (auto) (0.0-1.3) Lymphocytes % (24.0-44.0) % Monocytes % (0.0-12.0) % Eosinophils % (0.00-5.0) % Basophils % (0.0-0.4) % Absolute Granulocytes (1.4-6.9) Basophils # (0-0.4) Sodium 139 (137-145) mmol/L Potassium 4.3 (3.5-5.1) mmol/L Chloride 105 (98-107) mmol/L Carbon Dioxide 27 (22-30) mmol/L Anion Gap 11.3 (5-15) MEQ/L BUN 21 H (7-17) mg/dL Creatinine 1.03 (0.52-1.04) mg/dL Estimated GFR 56.6 ML/MIN Glucose 115 H (74-106) mg/dL POC Glucometer (74 to 106) mg/dL Lactic Acid (0.4-2.0) Calcium 8.7 (8.4-10.2) mg/dL Magnesium (1.6-2.3) mg/dL Total Bilirubin 0.40 (0.2-1.3) mg/dL AST 15 (14-36) U/L ALT 13 (0-35) U/L Alkaline Phosphatase 72 (38-126) U/L Troponin I (0.000-0.034) ng/mL NT-Pro-B Natriuret Pep (0-900) pg/mL Serum Total Protein 5.9 L (6.3-8.2) g/dL Albumin 3.2 L (3.5-5.0) g/dL Urine Color (YELLOW) Urine Appearance (CLEAR) Urine pH (5-6) Ur Specific [place] (1.005-1.025) Urine Protein (Negative) Urine Ketones (NEGATIVE) Urine Blood (0-5) Jose/ul Urine Nitrite (NEGATIVE) Urine Bilirubin (NEGATIVE) Urine Urobilinogen (0-1) mg/dL Ur Leukocyte Esterase (NEGATIVE) Urine WBC (Auto) (0-5) /HPF Urine RBC (Auto) (0-2) /HPF U Hyaline Cast (Auto) (0-2) /LPF U Epithel Cells (Auto) (FEW) /HPF Urine Bacteria (Auto) (NEGATIVE) /HPF U Non-Squamous Epi Cells Calcium Oxalate Crystal Leucine Crystals Cystine Crystals Uric Acid Cryst (Auto) Triple Phos Crystals Amorphous Crystals Fatty Casts Granular Casts (Auto) Waxy Casts (Auto) RBC Casts (Auto) WBC Casts Urine Mucus (Auto) (NEGATIVE) /HPF U Trichomonas (Auto) Urine Yeast (Auto) Ur Yeast w Hyphae Urine Yeast (Budding) Urine Sperm (Auto) Ur Oval Fat Bodies Auto Urine Culture Reflexed Urine Glucose (NEGATIVE) mg/dL SARS-CoV-2 (PCR) (NEGATIVE) Micro Results-Entire Visit: Microbiology 08/23/21 07:56 Urine Culture - Preliminary Clean Catch Midstream Accuchecks Date 08/22/21 Date 08/22/21 Time 22:00 Time 11:21 - Radiology Exams Ordered Rad Exams-Entire Visit: Radiology Procedures Category Date Time Status CHEST 1 VIEW (PORTABLE) Stat Exams 08/22/21 11:15 Completed HEAD WITHOUT CONTRAST [CT] Stat Exams 08/22/21 11:16 Completed - Procedures and Test Procedures and Tests throughout Hospitalization: Therapy Orders & Screens 08/22/21 17:49 Oxygen NASAL CANNULA 2 lpm Comment: Diagnosis: Hypertension Respiratory Therapy Assessment DAILY Comment: Diagnosis: Hypertension Discharge Exam General Appearance: no apparent distress, alert Neurologic Exam: oriented x 3, cooperative Eye Exam: eyes nml inspection Ears, Nose, Throat Exam: moist mucous membranes Neck Exam: normal inspection Respiratory Exam: diminished breath sounds (good air exchange), wheezing (throughout, expiratory), No crackles/rales, No rhonchi Cardiovascular Exam: regular rate/rhythm, normal heart sounds, No murmur Gastrointestinal/Abdomen Exam: normal bowel sounds, No distention Extremity Exam: normal inspection, No pedal edema, No swelling Skin Exam: normal color, warm, dry, No rash Final Diagnosis/Problem List - Final Discharge Diagnosis/Problem (1) Hypotension Current Visit: Yes Status: Resolved Assessment & Plan: Much better. Likely related to UTI and possibly early dehydration. EKG nonacu te and troponins neg. CT head neg. If doing well today, may be able to discharge to home. - Addend - she has not been receiving her imdur since admission - will go ahead and give it today; if hypotensive will need to stay another day at least. Code(s): I95.9 - HYPOTENSION, UNSPECIFIED (2) Acute UTI Current Visit: Yes Status: Acute Assessment & Plan: Urine culture pending, should be done tomorrow. On rocephin 1g IV daily; would like her second dose prior to discharge, if she goes home today. Code(s): N39.0 - URINARY TRACT INFECTION, SITE NOT SPECIFIED (3) COPD (chronic obstructive pulmonary disease) Current Visit: Yes Status: Chronic Assessment & Plan: Start prednisone 40mg po daily and continue at home (for max 7d). - Discharge Disposition: Home, Self-Care Condition: Stable Prescriptions: New Prednisone 20 mg [Deltasone 20 mg] 40 mg PO DAILY #6 tablet Cephalexin Mh 500 mg [Keflex 500 mg] 500 mg PO QID #24 Continue Albuterol 8 gm Mdi Hfa [Ventolin Hfa MDI] 2 puffs IH Q4H PRN PRN PRN Reason: Shortness Of Breath cloNIDine HCL [Catapres] 0.3 mg PO TID Atorvastatin Calcium [Lipitor] 40 mg PO DAILY Carvedilol 12.5 mg [Coreg 12.5 mg] 12.5 mg PO BID Apixaban [Eliquis] 5 mg PO DAILY Potassium Chloride 10 Meq Tab* [Klor Con 10 MEQ] 10 meq PO DAILY Magnesium Oxide 400 mg [Mag-Ox 400] 400 mg PO DAILY Furosemide 40 mg [Lasix 40 MG] 20 mg PO DAILY Metformin HCl [Glucophage] 1,000 mg PO BID Famotidine 20 mg [Pepcid 20 MG] 20 mg PO DAILY Isosorbide Mononitrate [Isosorbide Mononitrate ER] 30 mg PO DAILY Ascorbic Acid 500 mg [Vitamin C 500 MG] 500 mg PO BID Albuterol/Ipratropium 3ml Neb* [DUONEB 0.5-3 MG/3 ml Neb] 3 ml IH QID PRN PRN PRN Reason: Shortness Of Breath Follow up with: DANY GUTHRIE [Primary Care Provider] -
[2021-08-23] MEDS ORDERED: FLUZONE HIGH-DOSE QUAD 2021-22 IM ONE (09:18)
[2021-08-23] MEDS: COREG 12.5 MG PO SCH (09:44)
[2021-08-23] MEDS: PROTONIX 40 MG IV IV SCH (09:45)
[2021-08-23] MEDS: Vitamin C 500 MG PO SCH (09:45)
[2021-08-23] MEDS: Catapres 0.1 MG PO SCH ×2 (09:45→15:35)
[2021-08-23] MEDS ORDERED: LASIX 20 MG PO SCH (10:00)
[2021-08-23] MEDS ORDERED: Imdur 30 MG PO SCH (10:00)
[2021-08-23] MEDS ORDERED: ROCEPHIN 1 Gm-D5w 50 ml Bag** 1 G/50 ML IVPB IV SCH (10:00)
[2021-08-23] MEDS ORDERED: Pepcid 20 MG PO SCH (10:00)
[2021-08-23] MEDS ORDERED: NON-FORMULARY ITEM (Apixaban [Eliquis] 5 MG Tablet) PO SCH (10:00)
[2021-08-23] MEDS ORDERED: LIPITOR 40MG PO SCH (10:00)
[2021-08-23] MEDS ORDERED: ZOCOR 20MG PO SCH (10:00)
[2021-08-23] MEDS ORDERED: DELTASONE 20 MG PO SCH (10:00)
[2021-08-23] MEDS ORDERED: MAG-OX 400 PO SCH (10:00)
[2021-08-23] MEDS ORDERED: Klor Con 10 MEQ PO SCH (10:00)
[2021-08-23] MEDS ORDERED: ELIQUIS 2.5 MG TABLET PO SCH (10:00)
[2021-08-23] MEDS: Sodium Chloride 0.9% W/ 20 mEq KCl/LITER 1,000 ML IV SCH (15:36)
[2021-08-23 16:22] VITALS: BP 140/82; PULSE 86; O2SAT 95
[2021-08-23] MEDS ORDERED: DUONEB 0.5-3 MG/3 ml Neb IH SCH (19:00)
== END 2021-08-23 17:45 | disposition home or self-care (01) ==
LOC: ED 10:48 → MED SURG 17:23
PROVIDERS: ADMIT Family Medicine; ATTEND Family Medicine
DX: I95.9 Hypotension, unspecified (principal); R42 Dizziness and giddiness; R11.2 Nausea with vomiting, unspecified; I10 Essential (primary) hypertension; N39.0 Urinary tract infection, site not specified; J44.9 Chronic obstructive pulmonary disease, unspecified; E78.5 Hyperlipidemia, unspecified; G62.9 Polyneuropathy, unspecified; R53.1 Weakness; E11.9 Type 2 diabetes mellitus without complications; R51.9 Headache, unspecified; R53.83 Other fatigue; Z79.899 Other long term (current) drug therapy; Z79.01 Long term (current) use of anticoagulants; I71.4 Abdominal aortic aneurysm, without rupture; Z20.822 Contact with and (suspected) exposure to COVID-19; Z23 Encounter for immunization
CPT/HCPCS: 36000; 36415; 70450; 71045; 80053; 81001; 82947; 83605; 83735; 83880; 84484; 85025; 87086; 93005; 93268; 94640; 94760; 96360; 96365; 96374; 99285; G0008; G0378; U0003; 90662; J0696; J2405; A9270-GY

== ENCOUNTER 2021-09-15 05:26 | Inpatient (IN) | payer MEDICARE ==
--- NOTE | 2021-09-15 05:35 | ERPHSYRPT ---
- History of Present Illness Source: patient, EMS Exam Limitations: clinical condition Timing/Duration: day(s), worse (2 to 3 days) Activities at Onset: none Severity of Dyspnea-Max: moderate Severity of Dyspnea-Current: moderate Possible Cause: frequent episodes, chronic episodes Modifying Factors: Improves With: albuterol nebulizer, oxygen Associated Symptoms: anxiety, chest pain/discomfort, wheezing Hx Tetanus, Diphtheria Vaccination/Date Given: No Hx Influenza Vaccination/Date Given: No Hx Pneumococcal Vaccination/Date Given: No <PREETHI MONROE - Last Filed: 09/15/21 06:36> <JANEE DUGGAN - Last Filed: 09/15/21 09:10> - History of Present Illness Time Seen by Provider: 09/15/21 05:35 Physician History: This is a 66-year-old white female patient of Dr. Duglas Paul who has a history of oxygen dependent COPD, several episodes of COPD exacerbation, congestive heart failure, hypertension, diabetes, elevated cholesterol, gastroesophageal reflux disease. She is also on Eliquis. Over the last 2 to 3 days she has had worsening shortness of air. She continues to smoke cigarettes daily. In the last 2 days she has not been taking her medication because she is too short of breath. Her clinical nutrition manager is Dr. Forrest. Today, she states she has chest pain going across both chest anteriorly. (PREETHI MONROE) Allergies/Adverse Reactions: No Known Drug Allergies Allergy (Verified 08/22/21 10:52) Home Medications: Albuterol 8 gm Mdi Hfa [Ventolin Hfa MDI] 2 puffs IH Q4H PRN PRN 08/02/15 [History] cloNIDine HCL [Catapres] 0.3 mg PO TID 07/28/18 [History] Atorvastatin Calcium [Lipitor] 40 mg PO DAILY 12/06/18 [History] Carvedilol 12.5 mg [Coreg 12.5 mg] 12.5 mg PO BID 11/12/20 [History] Apixaban [Eliquis] 5 mg PO DAILY 05/23/21 [History] Famotidine 20 mg [Pepcid 20 MG] 20 mg PO DAILY 05/23/21 [History] Furosemide 40 mg [Lasix 40 MG] 20 mg PO DAILY 05/23/21 [History] Isosorbide Mononitrate [Isosorbide Mononitrate ER] 30 mg PO DAILY 05/23/21 [History] Magnesium Oxide 400 mg [Mag-Ox 400] 400 mg PO DAILY 05/23/21 [History] Metformin HCl [Glucophage] 1,000 mg PO BID 05/23/21 [History] Potassium Chloride 10 Meq Tab* [Klor Con 10 MEQ] 10 meq PO DAILY 05/23/21 [History] Albuterol/Ipratropium 3ml Neb* [DUONEB 0.5-3 MG/3 ml Neb] 3 ml IH QID PRN PRN 08/22/21 [History] Ascorbic Acid 500 mg [Vitamin C 500 MG] 500 mg PO BID 08/22/21 [History] Travel Risk - International Travel Have you traveled outside of the country in past 3 weeks: No - Coronavirus Screening Are you exhibiting any of the following symptoms?: No Close contact with a COVID-19 positive Pt in past 14-21 Days: No - Vaccine Status Have you recieved a Covid-19 vaccination: Yes Turn Out: Moderna - Vaccination Dates Date of 2cond Vaccination (if applicable): March 2021 <PREETHI MONROE - Last Filed: 09/15/21 06:36> - Review of Systems Constitutional: No Symptoms Eyes: No Symptoms Ears, Nose, & Throat: No Symptoms Respiratory: Cough, Dyspnea, Wheezing Cardiac: Chest Pain Abdominal/Gastrointestinal: No Symptoms Genitourinary Symptoms: No Symptoms Musculoskeletal: No Symptoms Skin: No Symptoms Neurological: No Symptoms Psychological: No Symptoms Endocrine: No Symptoms Hematologic/Lymphatic: No Symptoms Immunological/Allergic: No Symptoms All Other Systems: Reviewed and Negative <PREETHI MONROE - Last Filed: 09/15/21 06:36> - Past Medical History Pertinent Past Medical History: Yes Neurological History: Migraines ENT History: No Pertinent History Cardiac History: Congestive Heart Failure, High Cholesterol, Hypertension Respiratory History: Asthma, CHF, COPD, Emphysema, Other Endocrine Medical History: Diabetes Type II Musculoskeletal History: Arthritis GI Medical History: GERD, Gallbladder Disease History: No Pertinent History Psycho-Social History: Anxiety Female Reproductive Disorders: No Pertinent History Other Medical History: 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 - Past Surgical History Past Surgical History: Yes Neuro Surgical History: No Pertinent History Cardiac: No Pertinent History Respiratory: No Pertinent History Gastrointestinal: Cholecystectomy Genitourinary: No Pertinent History Musculoskeletal: Orthopedic Surgery Female Surgical History: Hysterectomy Other Surgical History: right knee replacement, screw in pelvis, misha in left leg - Social History Smoking Status: Current every day smoker How long have you smoked: 47 yrs Exposure to second hand smoke: No Drug Use: none Patient Lives Alone: Yes <PREETHI MONROE - Last Filed: 09/15/21 06:36> - Physical Exam General Appearance: moderate distress, alert, anxiety, thin Eye Exam: PERRL/EOMI, eyes nml inspection Ears, Nose, Throat Exam: hearing grossly normal Neck Exam: normal inspection, non-tender, supple, full range of motion Respiratory Exam: chest tenderness, respiratory distress, airway intact, wheezing Cardiovascular/Chest Exam: tachycardia Abdominal/Gastrointestinal Exam: soft, normal bowel sounds, No tenderness Rectal Exam: not done Extremity Exam: non-tender, normal range of motion, normal inspection Neurologic Exam: alert, oriented x 3, cooperative, certified registered nurse practitioner II-XII nml as tested, normal mood/affect, nml cerebellar function, nml station & gait, sensation nml Skin Exam: normal color, warm Lymphatic Exam: No adenopathy SpO2 Interpretation: hypoxic, ABG ordered, O2 applied O2 Delivery: Aerosol Mask <PREETHI MONROE - Last Filed: 09/15/21 06:36> - Nursing Vital Signs Nursing Vital Signs: Initial Vital Signs Temperature 98.5 F 09/15/21 05:30 Pulse Rate 146 H 09/15/21 05:30 Respiratory Rate 30 H 09/15/21 05:30 Blood Pressure 225/164 09/15/21 05:30 O2 Sat by Pulse Oximetry 93 L 09/15/21 05:30 Pain Scale Pain Intensity 0 - Course Nursing assessment & vital signs reviewed: Yes EKG Interpreted by Me: RATE (145), Sinus Tach, Left [place] Deviation, Non-specific ST Changes, Other (There are no acute ischemic changes on today's EKG. There is new sinus tachycardia when compared to EKG dated 08/22/2021. There is persistent LVH with secondary repolarization abnormality.) <PREETHI MONROE - Last Filed: 09/15/21 06:36> - Radiology Exams Chest X-ray Interpretation: Other (Chest x-ray shows cardiomegaly and bilateral pleural effusions and decompensation CHF.) - CT Exams Chest CT Interpretation: Other (CT scan shows no pulmonary embolus new cardiomegaly and bilateral pleural effusions favoring CHF again incidental pulmonary emph ysema and scattered fibrosis scarring chronic changes.) <JANEE DUGGAN - Last Filed: 09/15/21 09:10> Ordered Tests: Active Orders 24 hr Category Date Time Status Catheter-[place] STAT Care 09/15/21 06:11 Active EKG-ER Only STAT Care 09/15/21 05:35 Active IV Insertion STAT Care 09/15/21 05:35 Active Pulse Oximetry (ED) STAT Care 09/15/21 05:35 Active CHEST 1 VIEW (PORTABLE) Stat Exams 09/15/21 05:35 Completed CHEST WITH CONTRAST [CT] Stat Exams 09/15/21 06:26 Completed ABG [ARTERIAL BLOOD GASES] Stat Lab 09/15/21 05:35 Completed CBC W DIFF Stat Lab 09/15/21 05:40 Completed CMP Stat Lab 09/15/21 05:40 Completed D-DIMER QUANTITATIVE Stat Lab 09/15/21 05:40 Completed INFLUENZA A+B ALCIRA Stat Lab 09/15/21 06:30 Completed Lactic Acid Stat Lab 09/15/21 05:33 Completed MAG [MAGNESIUM] Stat Lab 09/15/21 06:00 Completed NT PRO BNP Stat Lab 09/15/21 05:40 Completed TROPONIN Q3H Lab 09/15/21 05:40 Completed TROPONIN Q3H Lab 09/15/21 08:45 Ordered TROPONIN Q3H Lab 09/15/21 11:45 Ordered TROPONIN Q3H Lab 09/15/21 14:45 Ordered TROPONIN Q3H Lab 09/15/21 17:45 Ordered BiPap/CPAP STAT RT 09/15/21 05:50 Active Medication Summary Generic Name Dose Route Start Last Admin Trade Name Freq PRN Reason Stop Dose Admin Sodium Chloride 1,000 mls @ 50 mls/hr 09/15/21 06:30 09/15/21 06:44 Sodium Chloride 0.9% 1000 Ml IV 10/15/21 06:29 50 mls/hr .Q20H CARLOS ENRIQUE Administration Discontinued Medications Generic Name Dose Route Start Last Admin Trade Name Freq PRN Reason Stop Dose Admin Furosemide 40 mg 09/15/21 05:58 09/15/21 06:11 Furosemide 40 Mg/4 Ml Vial IV 09/15/21 05:59 40 mg STAT ONE Administration Furosemide Confirm 09/15/21 06:07 Furosemide 40 Mg/4 Ml Vial Administered 09/15/21 06:08 Dose 40 mg .ROUTE .STK-MED ONE Lorazepam 0.5 mg 09/15/21 05:53 09/15/21 06:11 Lorazepam 2 Mg/1 Ml 2 Mg Vial IV 09/15/21 05:54 0.5 mg STAT ONE Administration Lorazepam Confirm 09/15/21 06:07 Lorazepam 2 Mg/1 Ml 2 Mg Vial Administered 09/15/21 06:08 Dose 2 mg .ROUTE .STK-MED ONE Metoprolol Tartrate 5 mg 09/15/21 05:54 09/15/21 06:11 Metoprolol Tartrate 5 Mg/5 Ml Injection IV 09/15/21 05:55 2.5 mg STAT ONE Administration Metoprolol Tartrate Confirm 09/15/21 06:07 Metoprolol Tartrate 5 Mg/5 Ml Injection Administered 09/15/21 06:08 Dose 5 mg IV .STK-MED ONE Lab/Rad Data: Laboratory Result Diagrams 09/15/21 05:40 09/15/21 05:40 Laboratory Results 09/15/21 09/15/21 09/15/21 Range/Units 07:41 06:30 06:30 WBC (4.0-10.5) K/mm3 RBC (4.1-5.4) M/mm3 Hgb (12.0-16.0) gm/dl Hct (35-47) % MCV (78-100) fl MCH (26-32) pg MCHC (32-36) g/dl RDW (11.5-14.0) % Plt Count (150-450) K/mm3 MPV (7.5-11.0) fl Gran % (36.0-66.0) % Eos # (Auto) (0-0.5) Absolute Lymphs (auto) (1.0-4.6) Absolute Monos (auto) (0.0-1.3) Lymphocytes % (24.0-44.0) % Monocytes % (0.0-12.0) % Eosinophils % (0.00-5.0) % Basophils % (0.0-0.4) % Absolute Granulocytes (1.4-6.9) Basophils # (0-0.4) D-Dimer (215-500) ng/mL Puncture Site pCO2 (35-45) mmHg pO2 (75-100) mmHg Base Excess (-2.0-2.0) O2 Saturation (94-100) g/dF ABG pH (7.35-7.45) ABG HCO3 (22-28) ABG O2 Sat (Measured) (95-100) % Hiro Test A-a Gradient a/A Ratio Hemoglobin Carboxyhemoglobin (0.0-6.9) % THgb Methemoglobin (1.4-1.5) % Potassium (3.5-5.1) Temperature C POC O2 Flow Rate % Sodium (137-145) mmol/L Chloride (98-107) mmol/L Carbon Dioxide (22-30) mmol/L Anion Gap (5-15) MEQ/L BUN (7-17) mg/dL Creatinine (0.52-1.04) mg/dL Estimated GFR ML/MIN Glucose (74-106) mg/dL Lactic Acid (0.4-2.0) Calcium (8.4-10.2) mg/dL Magnesium (1.6-2.3) mg/dL Total Bilirubin (0.2-1.3) mg/dL AST (14-36) U/L ALT (0-35) U/L Alkaline Phosphatase (38-126) U/L Troponin I (0.000-0.034) ng/mL NT-Pro-B Natriuret Pep (0-900) pg/mL Serum Total Protein (6.3-8.2) g/dL Albumin (3.5-5.0) g/dL Influenza Type A Ag NEGATIVE (NEGATIVE) Influenza Type B Ag NEGATIVE (NEGATIVE) SARS-CoV-2 (PCR) NEGATIVE (NEGATIVE) Group A Strep Antibody NEGATIVE (NEGATIVE) 09/15/21 09/15/21 09/15/21 Range/Units 06:00 05:40 05:40 WBC (4.0-10.5) K/mm3 RBC (4.1-5.4) M/mm3 Hgb (12.0-16.0) gm/dl Hct (35-47) % MCV (78-100) fl MCH (26-32) pg MCHC (32-36) g/dl RDW (11.5-14.0) % Plt Count (150-450) K/mm3 MPV (7.5-11.0) fl Gran % (36.0-66.0) % Eos # (Auto) (0-0.5) Absolute Lymphs (auto) (1.0-4.6) Absolute Monos (auto) (0.0-1.3) Lymphocytes % (24.0-44.0) % Monocytes % (0.0-12.0) % Eosinophils % (0.00-5.0) % Basophils % (0.0-0.4) % Absolute Granulocytes (1.4-6.9) Basophils # (0-0.4) D-Dimer 1715 H* (215-500) ng/mL Puncture Site pCO2 (35-45) mmHg pO2 (75-100) mmHg Base Excess (-2.0-2.0) O2 Saturation (94-100) g/dF ABG pH (7.35-7.45) ABG HCO3 (22-28) ABG O2 Sat (Measured) (95-100) % Hiro Test A-a Gradient a/A Ratio Hemoglobin Carboxyhemoglobin (0.0-6.9) % THgb Methemoglobin (1.4-1.5) % Potassium (3.5-5.1) Temperature C POC O2 Flow Rate % Sodium (137-145) mmol/L Chloride (98-107) mmol/L Carbon Dioxide (22-30) mmol/L Anion Gap (5-15) MEQ/L BUN (7-17) mg/dL Creatinine (0.52-1.04) mg/dL Estimated GFR ML/MIN Glucose (74-106) mg/dL Lactic Acid (0.4-2.0) Calcium (8.4-10.2) mg/dL Magnesium 2.1 (1.6-2.3) mg/dL Total Bilirubin (0.2-1.3) mg/dL AST (14-36) U/L ALT (0-35) U/L Alkaline Phosphatase (38-126) U/L Troponin I < 0.012 (0.000-0.034) ng/mL NT-Pro-B Natriuret Pep (0-900) pg/mL Serum Total Protein (6.3-8.2) g/dL Albumin (3.5-5.0) g/dL Influenza Type A Ag (NEGATIVE) Influenza Type B Ag (NEGATIVE) SARS-CoV-2 (PCR) (NEGATIVE) Group A Strep Antibody (NEGATIVE) 09/15/21 09/15/21 09/15/21 Range/Units 05:40 05:40 05:35 WBC 14.6 H (4.0-10.5) K/mm3 RBC 5.37 (4.1-5.4) M/mm3 Hgb 14.2 (12.0-16.0) gm/dl Hct 45.9 (35-47) % MCV 85.5 (78-100) fl MCH 26.4 (26-32) pg MCHC 30.9 L (32-36) g/dl RDW 16.2 H (11.5-14.0) % Plt Count 339 (150-450) K/mm3 MPV 10.5 (7.5-11.0) fl Gran % 68.5 H (36.0-66.0) % Eos # (Auto) 0.12 (0-0.5) Absolute Lymphs (auto) 3.61 (1.0-4.6) Absolute Monos (auto) 0.84 (0.0-1.3) Lymphocytes % 24.8 (24.0-44.0) % Monocytes % 5.8 (0.0-12.0) % Eosinophils % 0.8 (0.00-5.0) % Basophils % 0.1 (0.0-0.4) % Absolute Granulocytes 9.96 H (1.4-6.9) Basophils # 0.02 (0-0.4) D-Dimer (215-500) ng/mL Puncture Site RIGHT BRACHIAL pCO2 70 H* (35-45) mmHg pO2 78 (75-100) mmHg Base Excess -2.3 L (-2.0-2.0) O2 Saturation 89.7 L (94-100) g/dF ABG pH 7.20 L* (7.35-7.45) ABG HCO3 27.4 (22-28) ABG O2 Sat (Measured) 93.2 L (95-100) % Hiro Test NOT APPLICABLE A-a Gradient 262 a/A Ratio 0.23 Hemoglobin 13.9 Carboxyhemoglobin 3.5 (0.0-6.9) % THgb Methemoglobin 0.3 L (1.4-1.5) % Potassium 4.1 4.7 (3.5-5.1) Temperature 37.0 C POC O2 Flow Rate 60 % Sodium 142 (137-145) mmol/L Chloride 102 (98-107) mmol/L Carbon Dioxide 28 (22-30) mmol/L Anion Gap 16.3 H (5-15) MEQ/L BUN 19 H (7-17) mg/dL Creatinine 1.11 H (0.52-1.04) mg/dL Estimated GFR 52.0 ML/MIN Glucose 126 H (74-106) mg/dL Lactic Acid (0.4-2.0) Calcium 9.9 (8.4-10.2) mg/dL Magnesium (1.6-2.3) mg/dL Total Bilirubin 0.90 (0.2-1.3) mg/dL AST 32 (14-36) U/L ALT 28 (0-35) U/L Alkaline Phosphatase 116 (38-126) U/L Troponin I (0.000-0.034) ng/mL NT-Pro-B Natriuret Pep 4250 H (0-900) pg/mL Serum Total Protein 8.4 H (6.3-8.2) g/dL Albumin 4.9 (3.5-5.0) g/dL Influenza Type A Ag (NEGATIVE) Influenza Type B Ag (NEGATIVE) SARS-CoV-2 (PCR) (NEGATIVE) Group A Strep Antibody (NEGATIVE) 09/15/21 Range/Units 05:33 WBC (4.0-10.5) K/mm3 RBC (4.1-5.4) M/mm3 Hgb (12.0-16.0) gm/dl Hct (35-47) % MCV (78-100) fl MCH (26-32) pg MCHC (32-36) g/dl RDW (11.5-14.0) % Plt Count (150-450) K/mm3 MPV (7.5-11.0) fl Gran % (36.0-66.0) % Eos # (Auto) (0-0.5) Absolute Lymphs (auto) (1.0-4.6) Absolute Monos (auto) (0.0-1.3) Lymphocytes % (24.0-44.0) % Monocytes % (0.0-12.0) % Eosinophils % (0.00-5.0) % Basophils % (0.0-0.4) % Absolute Granulocytes (1.4-6.9) Basophils # (0-0.4) D-Dimer (215-500) ng/mL Puncture Site pCO2 (35-45) mmHg pO2 (75-100) mmHg Base Excess (-2.0-2.0) O2 Saturation (94-100) g/dF ABG pH (7.35-7.45) ABG HCO3 (22-28) ABG O2 Sat (Measured) (95-100) % Hiro Test A-a Gradient a/A Ratio Hemoglobin Carboxyhemoglobin (0.0-6.9) % THgb Methemoglobin (1.4-1.5) % Potassium (3.5-5.1) Temperature C POC O2 Flow Rate % Sodium (137-145) mmol/L Chloride (98-107) mmol/L Carbon Dioxide (22-30) mmol/L Anion Gap (5-15) MEQ/L BUN (7-17) mg/dL Creatinine (0.52-1.04) mg/dL Estimated GFR ML/MIN Glucose (74-106) mg/dL Lactic Acid 3.6 H (0.4-2.0) Calcium (8.4-10.2) mg/dL Magnesium (1.6-2.3) mg/dL Total Bilirubin (0.2-1.3) mg/dL AST (14-36) U/L ALT (0-35) U/L Alkaline Phosphatase (38-126) U/L Troponin I (0.000-0.034) ng/mL NT-Pro-B Natriuret Pep (0-900) pg/mL Serum Total Protein (6.3-8.2) g/dL Albumin (3.5-5.0) g/dL Influenza Type A Ag (NEGATIVE) Influenza Type B Ag (NEGATIVE) SARS-CoV-2 (PCR) (NEGATIVE) Group A Strep Antibody (NEGATIVE) - Progress Progress: improved, re-examined Air Movement: poor Blood Culture(s) Obtained: Yes Counseled pt/family regarding: lab results, diagnosis, rad results <PREETHI MONROE - Last Filed: 09/15/21 06:36> - Progress Air Movement: fair Blood Culture(s) Obtained: No Antibiotics given: No Discussed with DrLouise: Dianne Will see patient in: hospital (full admit) <JANEE DUGGAN - Last Filed: 09/15/21 09:10> - Progress Progress Note: 09/15/21 06:09 Chest x-ray shows chronic changes with ? New right basilar atelectasis versus early infiltrate 09/15/21 06:20 Patient care is being transferred to Dr. Janee Duggan at shift change. He will follow up on pending studies and make final disposition. (PREETHI MONROE) 09/15/21 09:09 Patient was discussed with Dr. Villa on-call for Dr. Ardon patient will be admitted and undergo diuresis. (JANEE DUGGAN) - Departure Departure Disposition: In-patient Admission Critical Care Time: Yes Critical Care Time(excluding separately billable procedures): Critical 30-74 mins (35 minutes) <PREETHI MONROE - Last Filed: 09/15/21 06:36> - Departure Departure Disposition: In-patient Admission <JANEE DUGGAN - Last Filed: 09/15/21 09:10> - Departure Clinical Impression: Hypoxia, Respiratory distress, Sinus tachycardia, CHF exacerbation, COPD ex acerbation Condition: Serious Referrals: DANY GUTHRIE [Primary Care Provider] - Follow up/PCP as directed Instructions: Heart Failure, Chronic Obstructive Pulmonary Disease
[2021-09-15 05:41] LABS: A-aADO2 262; ABG HEMOGLOBIN 13.9; ABG POTASSIUM 4.7 (3.5-5.1); ABG SITE RIGHT BRACHIAL; ARTERIAL BLD GAS O2 SATURATION 93.2 % (95-100); ARTERIAL BLOOD GAS BASE EXCESS -2.3 (-2.0-2.0); ARTERIAL BLOOD GAS FIO2 60 %; ARTERIAL BLOOD GAS PCO2 70 mmHg (35-45); ARTERIAL BLOOD GAS PO2 78 mmHg (75-100); CARBOXYHEMOGLOBIN 3.5 % THgb (0.0-6.9); HCO3- 27.4 (22-28); HGB O2 SAT 89.7 g/dF (94-100); Methhemoglobin 0.3 % (1.4-1.5)
[2021-09-15 05:50] LABS: Absolute Neutrophil Ct (ANC) 9.96 (1.4-6.9); BASOPHIL % 0.1 % (0.0-0.4); Basophil (Absolute #) 0.02 (0-0.4); Eosinophil % 0.8 % (0.00-5.0); Eosinophil (Absolute #) 0.12 (0-0.5); Hematocrit 45.9 % (35-47); Hemoglobin 14.2 gm/dl (12.0-16.0); Lymphocyte (Absolute #) 3.61 (1.0-4.6); Lymphocytes % 24.8 % (24.0-44.0); Mean Cell Volume 85.5 fl (78-100); Mean Corpuscular Hemoglobin 26.4 pg (26-32); Mean Corpuscular Hgb Concent. 30.9 g/dl (32-36); Mean Platelet Volume 10.5 fl (7.5-11.0); Monocyte (Absolute #) 0.84 (0.0-1.3); Monocytes % 5.8 % (0.0-12.0); Neutrophil % 68.5 % (36.0-66.0); Platelet Count 339 K/mm3 (150-450); Red Blood Count 5.37 M/mm3 (4.1-5.4); Red Cell Distribution Width 16.2 % (11.5-14.0); White Blood Count 14.6 K/mm3 (4.0-10.5)
[2021-09-15] MEDS ORDERED: Ativan 2 MG/1 ML VIAL IV ONE (05:53)
[2021-09-15] MEDS ORDERED: LOPRESSOR 5 MG/5 ML INJECTION IV ONE ×2 (05:54→06:07)
[2021-09-15] MEDS ORDERED: Lasix 40 MG/4 ML IV ONE (05:58)
[2021-09-15] MEDS ORDERED: Ativan 2 MG/1 ML VIAL ONE (06:07)
[2021-09-15] MEDS ORDERED: Lasix 40 MG/4 ML ONE (06:07)
[2021-09-15 06:17] LABS: ALBUMIN 4.9 g/dL (3.5-5.0); ANION GAP 16.3 MEQ/L (5-15); BILIRUBIN,TOTAL 0.9 mg/dL (0.2-1.3); Calcium 9.9 mg/dL (8.4-10.2); Creatinine 1 1.11 mg/dL (0.52-1.04); Potassium 4.1 mmol/L (3.5-5.1); Total Protein 8.4 g/dL (6.3-8.2)
[2021-09-15] MEDS: Sodium Chloride 0.9% 1000 ML 1,000 ML IV SCH (06:44)
[2021-09-15 07:03] LABS: INFLUENZA A NEGATIVE (NEGATIVE); INFLUENZA B NEGATIVE (NEGATIVE)
--- NOTE | 2021-09-15 08:49 | XRAY ---
Indication: Short of breath and chest pain. COPD, emphysema, and CHF. Multiple contiguous axial images obtained through the chest using 80 cc Isovue 370 contrast and PE protocol. Comparison: July 24, 2021. Pulmonary embolus evaluation limited by diffuse respiration artifact. There is good opacification of the pulmonary arteries. No obvious pulmonary embolus. Heart is now enlarged. Aorta remains mildly arteriosclerotic without aneurysm/dissection. Stable tiny right hilar calcified nodes. No pathologic mediastinal/hilar lymphadenopathy. Lungs again demonstrates diffuse pulmonary emphysema with scattered fibrosis/scarring. New moderate bilateral pleural effusions with minimal compressive atelectasis. Bony thorax intact again with mild degenerative changes throughout the spine. Limited upper abdomen again demonstrates splenic calcified granulomas. Impression: 1. Pulmonary embolus evaluation limited due to respiration artifact. No obvious pulmonary embolus. 2. New cardiomegaly and moderate bilateral effusions favoring cardiac decompensation/CHF. 3. Again incidental pulmonary emphysema, scattered fibrosis/scarring, chronic bony findings, and old granulomatous disease.
--- NOTE | 2021-09-15 08:51 | XRAY ---
Indication: Short of breath. Hypoxia. Comparison: August 22, 2021. Portable chest now demonstrates cardiomegaly, diffuse pulmonary edema, and small bibasilar effusions favoring cardiac decompensation/CHF. Superimposed pneumonia not completely excluded.
[2021-09-15] MEDS ORDERED: ELIQUIS 2.5 MG TABLET PO SCH (10:00)
[2021-09-15] MEDS ORDERED: VENTOLIN COMMON CANISTER IH PRN (10:41)
[2021-09-15] MEDS: DELTASONE 20 MG PO SCH ×2 (12:10→21:26)
[2021-09-15] MEDS: Imdur 30 MG PO SCH (12:11)
[2021-09-15] MEDS: Catapres 0.1 MG PO SCH ×3 (12:11→21:26)
[2021-09-15] MEDS: COREG 12.5 MG PO SCH ×2 (12:11→21:26)
[2021-09-15] MEDS: Lasix 40 MG/4 ML IV SCH ×2 (12:11→16:52)
[2021-09-15] MEDS: Zestril 5 MG PO SCH (12:11)
[2021-09-15] MEDS: DUONEB 0.5-3 MG/3 ml Neb IH SCH ×2 (13:00→19:26)
[2021-09-15] MEDS: Klor Con 10 MEQ PO SCH (16:52)
[2021-09-15] MEDS: ZOCOR 20MG PO SCH (16:52)
[2021-09-15] MEDS: MAG-OX 400 PO SCH (16:52)
[2021-09-15] MEDS: Pepcid 20 MG PO SCH (16:52)
[2021-09-15] MEDS ORDERED: CLONIDINE HCL 0.2 MG PO SCH (22:00)
[2021-09-16] MEDS: Sodium Chloride 0.9% 1000 ML 1,000 ML IV SCH (02:21)
[2021-09-16 05:34] LABS: Hematocrit 36.5 % (35-47); Mean Cell Volume 84.9 fl (78-100); Mean Corpuscular Hgb Concent. 30.7 g/dl (32-36); Mean Platelet Volume 10.4 fl (7.5-11.0); Platelet Count 257 K/mm3 (150-450); Red Cell Distribution Width 15.7 % (11.5-14.0); White Blood Count 8.1 K/mm3 (4.0-10.5)
[2021-09-16 05:43] LABS: Hemoglobin 11.2 gm/dl (12.0-16.0)
[2021-09-16 05:52] LABS: ANION GAP 13.3 MEQ/L (5-15); Calcium 8.8 mg/dL (8.4-10.2); Creatinine 1 1.32 mg/dL (0.52-1.04); EST GLOMERULAR FILTRATION RATE 42.5 ML/MIN; Potassium 4.1 mmol/L (3.5-5.1)
[2021-09-16] MEDS: DUONEB 0.5-3 MG/3 ml Neb IH SCH ×4 (06:38→17:01)
[2021-09-16] MEDS: ZOCOR 20MG PO SCH (08:28)
[2021-09-16] MEDS: MAG-OX 400 PO SCH (08:28)
[2021-09-16] MEDS: ELIQUIS 2.5 MG TABLET PO SCH (08:28)
[2021-09-16] MEDS: Klor Con 10 MEQ PO SCH (08:28)
[2021-09-16] MEDS: DELTASONE 20 MG PO SCH ×2 (08:28→21:09)
[2021-09-16] MEDS: Imdur 30 MG PO SCH (08:28)
[2021-09-16] MEDS: Catapres 0.1 MG PO SCH ×3 (08:28→21:08)
[2021-09-16] MEDS: Lasix 40 MG/4 ML IV SCH (08:29)
[2021-09-16] MEDS: COREG 12.5 MG PO SCH ×2 (08:29→21:11)
[2021-09-16] MEDS: Zestril 5 MG PO SCH (08:29)
[2021-09-16] MEDS: Pepcid 20 MG PO SCH (08:29)
[2021-09-16] MEDS ORDERED: LIPITOR 40MG PO SCH (10:00)
[2021-09-16] MEDS ORDERED: NON-FORMULARY ITEM (Apixaban [Eliquis] 5 MG Tablet) PO SCH (10:00)
[2021-09-16] MEDS ORDERED: Cyclobenzaprine 10 MG PO PRN (19:12)
[2021-09-17] MEDS: DUONEB 0.5-3 MG/3 ml Neb IH SCH ×2 (01:14→06:54)
[2021-09-17 06:56] LABS: Hematocrit 36.6 % (35-47); Hemoglobin 11.1 gm/dl (12.0-16.0); Mean Cell Volume 85.5 fl (78-100); Mean Corpuscular Hemoglobin 25.9 pg (26-32); Mean Corpuscular Hgb Concent. 30.3 g/dl (32-36); Mean Platelet Volume 10.5 fl (7.5-11.0); Platelet Count 252 K/mm3 (150-450); Red Blood Count 4.28 M/mm3 (4.1-5.4); Red Cell Distribution Width 15.7 % (11.5-14.0); White Blood Count 8.4 K/mm3 (4.0-10.5)
[2021-09-17 07:10] LABS: ANION GAP 12.1 MEQ/L (5-15); Calcium 8.9 mg/dL (8.4-10.2); Creatinine 1 1.05 mg/dL (0.52-1.04); EST GLOMERULAR FILTRATION RATE 55.4 ML/MIN; Potassium 4.4 mmol/L (3.5-5.1)
--- NOTE | 2021-09-17 08:27 | XRAY ---
Indication: COPD. Comparison: September 15, 2021. Portable chest again demonstrates cardiomegaly. Interval diminished pulmonary edema and diminished bibasilar effusions with mild residual. No new cardiopulmonary abnormalities.
[2021-09-17] MEDS: Imdur 30 MG PO SCH (09:38)
[2021-09-17] MEDS: Zestril 5 MG PO SCH (09:38)
[2021-09-17] MEDS: MAG-OX 400 PO SCH (09:38)
[2021-09-17] MEDS: ZOCOR 20MG PO SCH (09:38)
[2021-09-17] MEDS: Klor Con 10 MEQ PO SCH (09:38)
[2021-09-17] MEDS: Catapres 0.1 MG PO SCH (09:38)
[2021-09-17] MEDS: Pepcid 20 MG PO SCH (09:39)
[2021-09-17] MEDS: COREG 12.5 MG PO SCH (09:39)
[2021-09-17] MEDS: DELTASONE 20 MG PO SCH (09:39)
[2021-09-17] MEDS: ELIQUIS 2.5 MG TABLET PO SCH (09:39)
[2021-09-17] MEDS ORDERED: Lasix 40 MG PO SCH (10:00)
== END 2021-09-17 11:22 | disposition home or self-care (01) | DRG 192 ==
LOC: ED 05:26 → ICU 09:57
PROVIDERS: ADMIT Family Medicine; ATTEND Family Medicine
DX: J44.1 Chronic obstructive pulmonary disease with (acute) exacerbation (principal); R09.02 Hypoxemia; R06.03 Acute respiratory distress; R00.0 Tachycardia, unspecified; R79.1 Abnormal coagulation profile; R07.9 Chest pain, unspecified; I11.0 Hypertensive heart disease with heart failure; E11.9 Type 2 diabetes mellitus without complications; E78.5 Hyperlipidemia, unspecified; K21.9 Gastro-esophageal reflux disease without esophagitis; F17.200 Nicotine dependence, unspecified, uncomplicated; Z99.81 Dependence on supplemental oxygen; Z79.01 Long term (current) use of anticoagulants; Z79.899 Other long term (current) drug therapy; Z20.828 Contact with and (suspected) exposure to other viral communicable diseases
CPT/HCPCS: 36000; 36415; 36600; 51702; 71045; 71260; 80048; 80053; 82375; 82803; 82947; 83605; 83735; 83880; 84484; 85025; 85027; 85379; 87400; 87651; 93005; 94002; 94640; 94760; 94762; 96374; 96375; 99285; 99291; U0003; J1940; J2060; A9270-GY

== ENCOUNTER 2021-10-02 07:58 | Emergency (ER) | payer MEDICARE ==
[2021-10-02] MEDS ORDERED: Heparin 5000 UNITS/0.5 ML (HIGH RISK MED) IV ONE (08:18)
[2021-10-02] MEDS ORDERED: Heparin 5000 UNITS/0.5 ML (HIGH RISK MED) ONE (08:23)
[2021-10-02] MEDS ORDERED: Lasix 40 MG/4 ML ONE (08:23)
[2021-10-02] MEDS ORDERED: Lasix 40 MG/4 ML IV ONE (08:23)
[2021-10-02] MEDS ORDERED: Nitrostat 0.4 MG Tablet SL PRN (08:26)
[2021-10-02] MEDS ORDERED: Ntg 0.2MG/Ml in D5W GLASS*** 250 ML IV ONE (08:27)
[2021-10-02 08:29] LABS: Absolute Neutrophil Ct (ANC) 5.89 (1.4-6.9); BASOPHIL % 0.2 % (0.0-0.4); Basophil (Absolute #) 0.02 (0-0.4); Eosinophil % 1.8 % (0.00-5.0); Eosinophil (Absolute #) 0.15 (0-0.5); Hematocrit 40.3 % (35-47); Hemoglobin 12.2 gm/dl (12.0-16.0); Lymphocyte (Absolute #) 1.55 (1.0-4.6); Mean Cell Volume 85.9 fl (78-100); Mean Corpuscular Hgb Concent. 30.3 g/dl (32-36); Mean Platelet Volume 10.3 fl (7.5-11.0); Monocyte (Absolute #) 0.54 (0.0-1.3); Monocytes % 6.6 % (0.0-12.0); Neutrophil % 72.4 % (36.0-66.0); Platelet Count 287 K/mm3 (150-450); Red Blood Count 4.69 M/mm3 (4.1-5.4); White Blood Count 8.2 K/mm3 (4.0-10.5)
[2021-10-02 08:33] LABS: INR 1.05 (0.8-3.0); PROTIME 12.4 SECONDS (9.4-12.5)
[2021-10-02 08:48] VITALS: BP 200/134; PULSE 120; O2SAT 86
[2021-10-02 08:48] LABS: ALBUMIN 4.1 g/dL (3.5-5.0); ANION GAP 14.4 MEQ/L (5-15); BILIRUBIN,TOTAL 1.1 mg/dL (0.2-1.3); Calcium 9.3 mg/dL (8.4-10.2); Creatinine 1 1.07 mg/dL (0.52-1.04); EST GLOMERULAR FILTRATION RATE 54.2 ML/MIN; Potassium 5.4 mmol/L (3.5-5.1); Total Protein 7.1 g/dL (6.3-8.2)
[2021-10-02] MEDS ORDERED: Ntg 0.2MG/Ml in D5W GLASS*** 250 ML IV PRN (08:53)
--- NOTE | 2021-10-02 09:14 | ERPHSYRPT ---
- History of Present Illness Source: patient, EMS Exam Limitations: no limitations Patient Subjective Stated Complaint: Pt states "I have chest pain that wraps around to the left and I cannot breath." Triage Nursing Assessment: Pt presented with extreme tachypnia audible wheezes. PT arrived on duo neb. Pt speakin in one to three word sentences. pt stated she uses 4 lpm O2 all the time, pt stated she still smokes. Physician History: 66 yo wf 4L O2 dep at home presents per EMS w dyspnea since 2-3AM w mid-sternal chest pain which radiated to her back. Pain rated 5/10 but has been up to 8/10. Pt has a h/o HTN/DM/Hyperlipidemia/1ppd smoker/CHF but denies SD/stents. Pt's sats low 80's when EMS arrived and duoneb started w improvement in sats. She arrived hypertensive w sats in low 90's. Chest pain accompanied by nausea wo vomiting/diaphoresis. She was given [id number] in route. Timing/Duration: other (2-3AM) Severity of Dyspnea-Max: severe Severity of Dyspnea-Current: severe Possible Cause: occasional episodes Modifying Factors: Improves With: rest Associated Symptoms: chest pain/discomfort, wheezing, No anxiety, No cough, No edema, No fever, No insomnia, No loss of appetite, No lightheadedness, No weakness, No ankle swelling, No chills, No hemoptysis, No calf pain, No dizziness, No heaviness, No heart racing, No lightheadedness, No leg swelling, No muscle spasms feet, No muscle spasms hands, No painful breathing, No productive cough, No sweating, No tightness, No tingling face Allergies/Adverse Reactions: No Known Drug Allergies Allergy (Verified 08/22/21 10:52) Home Medications: Albuterol 8 gm Mdi Hfa [Ventolin Hfa MDI] 2 puffs IH Q4H PRN PRN 08/02/15 [History] cloNIDine HCL [Catapres] 0.3 mg PO TID 07/28/18 [History] Atorvastatin Calcium [Lipitor] 40 mg PO DAILY 12/06/18 [History] Carvedilol 12.5 mg [Coreg 12.5 mg] 12.5 mg PO BID 11/12/20 [History] Apixaban [Eliquis] 5 mg PO DAILY 05/23/21 [History] Famotidine 20 mg [Pepcid 20 MG] 20 mg PO DAILY 05/23/21 [History] Furosemide 40 mg [Lasix 40 MG] 20 mg PO DAILY 05/23/21 [History] Isosorbide Mononitrate [Isosorbide Mononitrate ER] 30 mg PO DAILY 05/23/21 [History] Magnesium Oxide 400 mg [Mag-Ox 400] 400 mg PO DAILY 05/23/21 [History] Metformin HCl [Glucophage] 1,000 mg PO BID 05/23/21 [History] Potassium Chloride 10 Meq Tab* [Klor Con 10 MEQ] 10 meq PO DAILY 05/23/21 [History] Albuterol/Ipratropium 3ml Neb* [DUONEB 0.5-3 MG/3 ml Neb] 3 ml IH QID PRN PRN 08/22/21 [History] Ascorbic Acid 500 mg [Vitamin C 500 MG] 500 mg PO BID 08/22/21 [History] Cyclobenzaprine HCl 10 mg [Cyclobenzaprine 10 MG] 10 mg PO TID 09/17/21 [History] Hx Tetanus, Diphtheria Vaccination/Date Given: No Hx Influenza Vaccination/Date Given: No Hx Pneumococcal Vaccination/Date Given: No Immunizations Up to Date: Yes Travel Risk - International Travel Have you traveled outside of the country in past 3 weeks: No - Coronavirus Screening Are you exhibiting any of the following symptoms?: No - Vaccine Status Have you recieved a Covid-19 vaccination: Yes [employer] Tender: Moderna - Vaccination Dates Date of 2cond Vaccination (if applicable): March 2021 - Review of Systems Constitutional: No Symptoms, Weakness Eyes: No Symptoms Ears, Nose, & Throat: No Symptoms Respiratory: No Symptoms, Dyspnea, Wheezing Cardiac: No Symptoms, Chest Pain Abdominal/Gastrointestinal: No Symptoms, Nausea Genitourinary Symptoms: No Symptoms Musculoskeletal: No Symptoms Skin: No Symptoms Neurological: No Symptoms Psychological: No Symptoms Endocrine: No Symptoms Hematologic/Lymphatic: No Symptoms Immunological/Allergic: No Symptoms - Past Medical History Pertinent Past Medical History: Yes Neurological History: Migraines ENT History: No Pertinent History Cardiac History: Congestive Heart Failure, High Cholesterol, Hypertension Respiratory History: Asthma, CHF, COPD, Emphysema, Other Endocrine Medical History: Diabetes Type II Musculoskeletal History: Arthritis GI Medical History: GERD, Gallbladder Disease History: No Pertinent History Psycho-Social History: Anxiety Female Reproductive Disorders: No Pertinent History Other Medical History: 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 - Past Surgical History Past Surgical History: Yes Neuro Surgical History: No Pertinent History Cardiac: No Pertinent History Respiratory: No Pertinent History Gastrointestinal: Cholecystectomy Genitourinary: No Pertinent History Musculoskeletal: Orthopedic Surgery Female Surgical History: Hysterectomy Other Surgical History: right knee replacement, screw in pelvis, misha in left leg - Social History Smoking Status: Current every day smoker How long have you smoked: 1 p Exposure to second hand smoke: Yes Drug Use: none Patient Lives Alone: Yes Significant Family History: no pertinent family hx - Nursing Vital Signs Nursing Vital Signs: Initial Vital Signs Temperature 97.9 F 10/02/21 08:19 Pulse Rate 120 H 10/02/21 08:19 Respiratory Rate 38 H 10/02/21 08:19 Blood Pressure 200/134 10/02/21 08:19 O2 Sat by Pulse Oximetry 93 L 10/02/21 08:19 Pain Scale Pain Intensity 5 Markedly hypertensive/Tachycardic/Sats borderline on oximask/Tachypneic - Physical Exam General Appearance: moderate distress Eye Exam: PERRL/EOMI, eyes nml inspection Ears, Nose, Throat Exam: hearing grossly normal, normal ENT inspection, normal pharynx Neck Exam: normal inspection, non-tender, supple, full range of motion, No Brudzinski, No Kernig's, No meningismus, No carotid bruit Respiratory Exam: respiratory distress (Mod), airway intact, wheezing (Diffuse wheezed w rales at bases) Cardiovascular/Chest Exam: tachycardia, No murmur Abdominal/Gastrointestinal Exam: soft, normal bowel sounds, No tenderness Neurologic Exam: alert, oriented x 3, cooperative, dentist/owner II-XII nml as tested, normal mood/affect, nml cerebellar function, sensation nml, No motor deficits, No sensory deficit Skin Exam: normal color, warm, dry, No rash Lymphatic Exam: No adenopathy SpO2 Interpretation: hypoxic SpO2: 86 O2 Delivery: Oxymask (Improvement in saturation) - Course Nursing assessment & vital signs reviewed: Yes EKG Interpreted by Me: RATE (Sinus tach/R117/LVH w strain/ST elevation V2/LAFB/Normal QT-QTc) Ordered Tests: Active Orders 24 hr Category Date Time Status EKG-ER Only STAT Care 10/02/21 08:23 Completed CBC W DIFF Stat Lab 10/02/21 08:15 Completed CMP Stat Lab 10/02/21 08:15 Completed NT PRO BNP Stat Lab 10/02/21 08:15 Completed PROTIME WITH INR Stat Lab 10/02/21 08:15 Completed PTT Stat Lab 10/02/21 08:15 Completed TROPONIN Q3H Lab 10/02/21 08:15 Completed Medication Summary Discontinued Medications Generic Name Dose Route Start Last Admin Trade Name Freq PRN Reason Stop Dose Admin Furosemide 40 mg 10/02/21 08:23 10/02/21 08:50 Furosemide 40 Mg/4 Ml Vial IV 10/02/21 08:24 40 mg STAT ONE Administration Furosemide Confirm 10/02/21 08:23 Furosemide 40 Mg/4 Ml Vial Administered 10/02/21 08:24 Dose 40 mg .ROUTE .STK-MED ONE Heparin Sodium (Beef Lung) 5,000 unit 10/02/21 08:18 10/02/21 08:50 Heparin 5000 Unit/0.5 Ml Syringe IV 10/02/21 08:19 5,000 unit STAT ONE Administration Heparin Sodium (Beef Lung) Confirm 10/02/21 08:23 Heparin 5000 Unit/0.5 Ml Syringe Administered 10/02/21 08:24 Dose 5,000 unit .ROUTE .STK-MED ONE Nitroglycerin/Dextrose Confirm 10/02/21 08:27 Ntg 0.2mg/Ml In D5w Glass Administered 10/02/21 08:28 Dose 250 mls @ ud IV .STK-MED ONE Nitroglycerin/Dextrose 250 mls @ 1.5 mls/hr 10/02/21 08:53 10/02/21 08:54 Ntg 0.2mg/Ml In D5w Glass IV 11/01/21 08:52 5 mcg/min .Q24H PRN 1.5 mls/hr CHEST PAIN Administration Protocol 5 MCG/MIN Nitroglycerin 0.4 mg 10/02/21 08:26 10/02/21 08:50 Nitroglycerin 0.4 Mg Tablet Bottle SL 11/01/21 08:25 0.4 mg Q5MIN PRN MR X 3 PRN Administration CHEST PAIN Ticagrelor 180 mg 10/02/21 10:00 10/02/21 08:50 Ticagrelor 90 Mg Tablet PO 11/01/21 09:59 180 mg BID CARLOS ENRIQUE Administration Lab/Rad Data: Laboratory Result Diagrams 10/02/21 08:15 10/02/21 08:15 Laboratory Results 10/02/21 10/02/21 10/02/21 Range/Units 08:15 08:15 08:15 WBC (4.0-10.5) K/mm3 RBC (4.1-5.4) M/mm3 Hgb (12.0-16.0) gm/dl Hct (35-47) % MCV (78-100) fl MCH (26-32) pg MCHC (32-36) g/dl RDW (11.5-14.0) % Plt Count (150-450) K/mm3 MPV (7.5-11.0) fl Gran % (36.0-66.0) % Eos # (Auto) (0-0.5) Absolute Lymphs (auto) (1.0-4.6) Absolute Monos (auto) (0.0-1.3) Lymphocytes % (24.0-44.0) % Monocytes % (0.0-12.0) % Eosinophils % (0.00-5.0) % Basophils % (0.0-0.4) % Absolute Granulocytes (1.4-6.9) Basophils # (0-0.4) PT 12.4 (9.4-12.5) SECONDS INR 1.05 (0.8-3.0) APTT 32.0 (25.1-36.5) SECONDS Sodium 136 L (137-145) mmol/L Potassium 5.4 H (3.5-5.1) mmol/L Chloride 103 (98-107) mmol/L Carbon Dioxide 25 (22-30) mmol/L Anion Gap 14.4 (5-15) MEQ/L BUN 20 H (7-17) mg/dL Creatinine 1.07 H (0.52-1.04) mg/dL Estimated GFR 54.2 ML/MIN Glucose 151 H (74-106) mg/dL Calcium 9.3 (8.4-10.2) mg/dL Total Bilirubin 1.10 (0.2-1.3) mg/dL AST 31 (14-36) U/L ALT 23 (0-35) U/L Alkaline Phosphatase 93 (38-126) U/L Troponin I 0.016 (0.000-0.034) ng/mL NT-Pro-B Natriuret Pep 3750 H (0-900) pg/mL Serum Total Protein 7.1 (6.3-8.2) g/dL Albumin 4.1 (3.5-5.0) g/dL 10/02/21 Range/Units 08:15 WBC 8.2 (4.0-10.5) K/mm3 RBC 4.69 (4.1-5.4) M/mm3 Hgb 12.2 (12.0-16.0) gm/dl Hct 40.3 (35-47) % MCV 85.9 (78-100) fl MCH 26.0 (26-32) pg MCHC 30.3 L (32-36) g/dl RDW 16.0 H (11.5-14.0) % Plt Count 287 (150-450) K/mm3 MPV 10.3 (7.5-11.0) fl Gran % 72.4 H (36.0-66.0) % Eos # (Auto) 0.15 (0-0.5) Absolute Lymphs (auto) 1.55 (1.0-4.6) Absolute Monos (auto) 0.54 (0.0-1.3) Lymphocytes % 19.0 L (24.0-44.0) % Monocytes % 6.6 (0.0-12.0) % Eosinophils % 1.8 (0.00-5.0) % Basophils % 0.2 (0.0-0.4) % Absolute Granulocytes 5.89 (1.4-6.9) Basophils # 0.02 (0-0.4) PT (9.4-12.5) SECONDS INR (0.8-3.0) APTT (25.1-36.5) SECONDS Sodium (137-145) mmol/L Potassium (3.5-5.1) mmol/L Chloride (98-107) mmol/L Carbon Dioxide (22-30) mmol/L Anion Gap (5-15) MEQ/L BUN (7-17) mg/dL Creatinine (0.52-1.04) mg/dL Estimated GFR ML/MIN Glucose (74-106) mg/dL Calcium (8.4-10.2) mg/dL Total Bilirubin (0.2-1.3) mg/dL AST (14-36) U/L ALT (0-35) U/L Alkaline Phosphatase (38-126) U/L Troponin I (0.000-0.034) ng/mL NT-Pro-B Natriuret Pep (0-900) pg/mL Serum Total Protein (6.3-8.2) g/dL Albumin (3.5-5.0) g/dL - Progress Progress: improved Progress Note: 10/02/21 09:19 After EKG done, IV access started and STEMI alert called due to elevation in V2. 180mg po Brilinta given/5000u IV Heparin given/40mg IV Lasix given/0.4 SL NTG given/NTG drip started. Dr Fernando consulted who wanted pt [facility] to [facility]. Spoke w ER physician after acceptance by Dr. Fernando. EKG texted to Dr. Fernando. Pt's BP decreasing upon transfer due to NTG tab 0.4mg and NTG drip. Pt critical but stable upon transfer. - Departure Departure Disposition: Transfer Clinical Impression: STEMI (ST elevation myocardial infarction), CHF (congestive heart failure), COPD (chronic obstructive pulmonary disease), Hypertensive emergency Condition: Critical Critical Care Time: Yes Critical Care Time(excluding separately billable procedures): Critical 30-74 mins Referrals: DANY GUTHRIE [Primary Care Provider] - Follow up/PCP as directed Instructions: Heart Failure, Chronic Obstructive Pulmonary Disease
[2021-10-02] MEDS ORDERED: BRILINTA PO SCH (10:00)
== END 2021-10-02 09:19 | disposition short-term general hospital (02) ==
LOC: ED 07:58
DX: I21.3 ST elevation (STEMI) myocardial infarction of unspecified site (principal); I16.1 Hypertensive emergency; Z72.0 Tobacco use; I11.0 Hypertensive heart disease with heart failure; I50.9 Heart failure, unspecified; E78.5 Hyperlipidemia, unspecified; E11.8 Type 2 diabetes mellitus with unspecified complications; Z79.84 Long term (current) use of oral hypoglycemic drugs; Z79.01 Long term (current) use of anticoagulants; J44.9 Chronic obstructive pulmonary disease, unspecified
CPT/HCPCS: 36000; 36415; 80053; 83880; 84484; 85025; 85610; 85730; 93005; 96374; 96375; 99285; 99291; J1644; J1940

== ENCOUNTER 2021-12-11 08:07 | Day surgery (SDC) | payer MEDICARE ==
[2021-12-11] MEDS ORDERED: Lactated Ringers 1,000 ML IV ONE (08:28)
--- NOTE | 2021-12-11 08:55 | HP ---
DATE OF SURGERY: 12/11/2021 HISTORY OF PRESENT ILLNESS: The patient is a 66-year-old with problems with upper esophagus, shakes at times of unclear etiology. She is in need of upper endoscopy possible biopsy possible dilatation. Family history of heart disease, lung disease. PAST MEDICAL HISTORY: Gastroesophageal reflux disease, chronic obstructive pulmonary disease, asthma, emphysema, hyperlipidemia and hypertension. PAST SURGICAL HISTORY: Cholecystectomy. Hysterectomy. Right knee replacement. Endoscopy in the past. MEDICATIONS: Albuterol inhaler, aspirin, atorvastatin, carvedilol, Cefdinir, dapagliflozin propanediol, furosemide, spironolactone, trazodone, tramadol, Trelegy Ellipta. ALLERGIES: NKDA. FAMILY HISTORY: Heart disease. Lung disease. SOCIAL HISTORY: Half pack per day smoker. Denies alcohol abuse. REVIEW OF SYSTEMS: Fourteen systems reviewed, pertinent for chronic illnesses as mentioned above. PHYSICAL EXAMINATION: GENERAL: No acute distress. HEENT: Sclerae nonicteric. NECK: No JVD. CHEST: Breath sounds symmetrical. CVS: Regular rate and rhythm. ABDOMEN: Soft. No peritoneal signs. EXTREMITIES: No significant edema. NEURO: Alert, oriented, moving extremities symmetrically. PSYCH: Appropriate mood and affect. IMPRESSION: Dysphagia upper esophagus. I feel she needs upper endoscopy possible biopsy possible dilatation. Risks and benefits explained in detail including but not limited to bleeding or infection, risk of bowel injury or perforation possibly requiring open procedure, risk of missed or nondiagnosis or incomplete exam possibly requiring barium swallow, other studies or procedures. General risk of anesthesia or sedation, risk of aspiration possible dilatation accomplished if it improves her swallowing may need to be repeated again down the road. Possibility if this does not improve her swallowing and is more of a functional or neurologic problem, may need further work up and/or other studies or procedures. She understands and agrees to the planned procedure, will proceed with EGD possible biopsy possible dilatation as an outpatient.
[2021-12-11] MEDS ORDERED: Lactated Ringers 1,000 ML IV SCH (09:00)
[2021-12-11] MEDS ORDERED: Xylocaine-Mpf 2% 5 Ml Vial ONE (10:20)
[2021-12-11] MEDS ORDERED: Versed 2 MG/2 ML Injection ONE (10:20)
[2021-12-11] MEDS ORDERED: DIPRIVAN 200 MG/20 ML IV ONE (10:20)
[2021-12-11 13:35] VITALS: BP 178/92; PULSE 89; O2SAT 94
--- NOTE | 2021-12-11 15:10 | OP ---
SURGERY DATE/TIME: 12/11/2021 1020 PREOPERATIVE DIAGNOSIS: Dysphagia upper esophagus. POSTOPERATIVE DIAGNOSES: 1) Proximal esophageal narrowing and spasm, symptomatic requiring dilatation. 2) Minimal to mild gastritis. PROCEDURES: 1) EGD with cold biopsy of antrum to evaluate for Helicobacter pylori. 2) Cold biopsy distal esophagus to evaluate for early inflammation. 3) Proximal esophageal balloon dilatation (size 20 balloon dilator). SURGEON: Dr. Triston Peterson. ANESTHESIA: MAC. ESTIMATED BLOOD LOSS: Minimal. INDICATIONS: As noted above. Risks and benefits explained in detail and not limited to and consent obtained. DESCRIPTION OF PROCEDURE AND FINDINGS: The patient is taken to the endoscopy room. MAC anesthesia introduced. After official time out and no disagreement with planned procedure, a bite block positioned. Video gastroscope easily passed down the oropharynx. The proximal esophageal area had a narrowed area and some spasm. There were no obvious lesion to biopsy. However, she was having symptoms here. Although the scope would just pass through here because of her symptoms it was felt this should be stretched out at the end of the procedure. The scope is passed back down into the stomach through the patent pylorus to the third portion of the duodenum. Third, second and first portion of the duodenum grossly unremarkable. Back in the stomach, she had some gastric erythema and some minimal to mild gastritis. Cold biopsy taken to evaluate for Helicobacter pylori. There are no signs of any obvious polyps, masses or ulcers. On retroflex the gastroesophageal junction snug against the scope. No signs of any significant hiatal hernia visible endoscopically. She did have a little bit of liquidy, foamy material in the stomach this is suctioned as well as possible. The scope pulled back. Gastroesophageal junction 40 cm. There were no signs of any Marquez's. No signs of any deep erosions. Just some questionable plus/minus early inflammation distal esophagus versus normal variation. Cold biopsy taken to evaluate for path. Good hemostasis noted. The remainder of the esophagus grossly unremarkable to the proximal esophageal narrowed and spasm area. Again, there is no obvious mass or lesion to biopsy here. It was felt that she would benefit from trying dilatation given her symptoms. The scope passed back down in the stomach. A 20 dilating balloon catheter carefully inserted under direct vision in the stomach and pulled back up to the narrowed area proximal esophagus and carefully inflated first stage for 40 seconds, second stage for 40 seconds, final stage size 20 balloon dilator for 2 minutes. The balloon catheter released and withdrawn. The scope much more easily passed through this area back down in the stomach and carefully withdrawn. There were no signs of any full thickness issues or injury secondary to dilatation. The patient tolerated the procedure well. There were no immediate complications. I will see her back in the office next week.
== END 2021-12-11 11:40 | disposition home or self-care (01) ==
LOC: SDC 08:07
PROVIDERS: ATTEND Surgery
DX: K22.2 Esophageal obstruction (principal); R13.10 Dysphagia, unspecified; K29.70 Gastritis, unspecified, without bleeding; K22.4 Dyskinesia of esophagus
CPT/HCPCS: C1726; J2250; J2704

== ENCOUNTER 2022-03-17 09:25 | Observation (INO) | payer MEDICARE ==
[2022-03-17] MEDS ORDERED: DUONEB 0.5-3 MG/3 ml Neb IH ONE ×2 (09:49)
[2022-03-17 10:27] LABS: Hematocrit 43.3 % (35-47); Mean Cell Volume 86.1 fl (78-100); Mean Corpuscular Hemoglobin 27.8 pg (26-32); Mean Corpuscular Hgb Concent. 32.3 g/dl (32-36); Platelet Count 254 K/mm3 (150-450); Red Blood Count 5.03 M/mm3 (4.1-5.4); Red Cell Distribution Width 14.5 % (11.5-14.0); White Blood Count 6.7 K/mm3 (4.0-10.5)
[2022-03-17 10:30] LABS: ANION GAP 12.5 MEQ/L (5-15); BILIRUBIN,TOTAL 0.8 mg/dL (0.2-1.3); Calcium 9.3 mg/dL (8.4-10.2); Creatinine 1 1.06 mg/dL (0.52-1.04); EST GLOMERULAR FILTRATION RATE 54.6 ML/MIN; Potassium 4.3 mmol/L (3.5-5.1); Total Protein 7.1 g/dL (6.3-8.2)
[2022-03-17] MEDS ORDERED: solu-MEDROL 125 MG, Sterile H2O 10 ml 2 ML IV ONE ×2 (10:51)
--- NOTE | 2022-03-17 10:57 | ERPHSYRPT ---
- History of Present Illness Time Seen by Provider: 03/17/22 10:34 Historian: patient Exam Limitations: no limitations Patient Subjective Stated Complaint: here for for increase sob for a couple days with pain to center of chest, procductive cough. [facility] Triage Nursing Assessment: pt alert, resp labored,face mask in place,wheezes heard,productive cough,, skin w/d/p, no edema noted Physician History: 67 years old female with history of chronic respiratory failure secondary to COPD on 2 L oxygen, congestive heart failure, CAD, hypertension, hyperlipidemia, tobacco abuse presented in the ER with increasing shortness of breath with substernal chest pain and cough productive of yellow sputum moderate in amount since yesterday with progressive worsening and hurts to take a deep breath in the center. Fever contact patient is scheduled for defibrillator placement in couple of days. Timing/Duration: yesterday, gradual onset, worse Activities at Onset: activity, rest Quality: aching, dullness Location: central Chest Pain Radiation: no radiation Severity of Pain-Max: moderate Severity of Pain-Current: mild Modifying Factors: Worsens With: coughing Associated Symptoms: shortness of breath Nitro Today/Relief: no nitro taken today Aspirin Treatment Today: unknown Allergies/Adverse Reactions: No Known Drug Allergies Allergy (Verified 03/17/22 09:35) Home Medications: Albuterol 8 gm Mdi Hfa [Ventolin Hfa MDI] 2 puffs IH Q4H PRN PRN 08/02/15 [History] Atorvastatin Calcium [Lipitor] 40 mg PO DAILY 12/06/18 [History] Carvedilol 12.5 mg [Coreg 12.5 mg] 25 mg PO BID 11/12/20 [History] Furosemide 40 mg [Lasix 40 MG] 20 mg PO DAILY 05/23/21 [History] Dapagliflozin Propanediol [Farxiga] 10 mg PO DAILY 12/07/21 [History] Fluticasone/Umeclidin/Vilanter [Trelegy Ellipta 200-62.5-25] 1 each IH DAILY 12/07/21 [History] Spironolactone 25 mg [Aldactone 25 MG] 25 mg PO DAILY 12/07/21 [History] Tramadol HCl 50 mg [Ultram 50 mg] 50 mg PO Q6HPRN PRN 12/07/21 [History] Trazodone HCl 50 mg [Desyrel 50 mg] 50 mg PO HS 12/07/21 [History] Ipratropium/Albuterol Sulfate [Iprat-Albut 0.5-3(2.5) mg/3 ml] 3 ml IH Q4H PRN PRN 12/11/21 [History] Hx Tetanus, Diphtheria Vaccination/Date Given: No Hx Influenza Vaccination/Date Given: No Hx Pneumococcal Vaccination/Date Given: No Immunizations Up to Date: Yes Travel Risk - International Travel Have you traveled outside of the country in past 3 weeks: No - Coronavirus Screening Are you exhibiting any of the following symptoms?: No - Vaccine Status Have you recieved a Covid-19 vaccination: Yes [employer]: Moderna - Vaccination Dates Date of 2cond Vaccination (if applicable): March 2021 - Review of Systems Constitutional: No Symptoms Eyes: No Symptoms Ears, Nose, & Throat: No Symptoms Respiratory: Cough, Dyspnea, Dyspnea on Exertion (ROBLES), Wheezing Cardiac: Chest Pain Abdominal/Gastrointestinal: No Symptoms Genitourinary Symptoms: No Symptoms Musculoskeletal: No Symptoms Skin: No Symptoms Neurological: No Symptoms Psychological: No Symptoms Endocrine: No Symptoms Hematologic/Lymphatic: No Symptoms Immunological/Allergic: No Symptoms - Past Medical History Pertinent Past Medical History: Yes Neurological History: Migraines ENT History: No Pertinent History Cardiac History: Congestive Heart Failure, Coronary Artery Disease, High Cholesterol, Hypertension, Myocardial Infarction ([facility]) Respiratory History: Asthma, Bronchitis, CHF, COPD, Emphysema, Pneumonia, Other Endocrine Medical History: Diabetes Type II Musculoskeletal History: Arthritis GI Medical History: GERD, Gallbladder Disease History: No Pertinent History Psycho-Social History: Anxiety Female Reproductive Disorders: No Pertinent History Other Medical History: 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 - Past Surgical History Past Surgical History: Yes Neuro Surgical History: No Pertinent History Cardiac: No Pertinent History Respiratory: No Pertinent History Gastrointestinal: Cholecystectomy Genitourinary: No Pertinent History Musculoskeletal: Orthopedic Surgery Female Surgical History: Hysterectomy Other Surgical History: right knee replacement, screw in pelvis, misha in left leg - Social History Smoking Status: Current every day smoker How long have you smoked: 1 p Exposure to second hand smoke: Yes Drug Use: none Patient Lives Alone: Yes Significant Family History: no pertinent family hx - Nursing Vital Signs Nursing Vital Signs: Initial Vital Signs Temperature 97.0 F 03/17/22 09:28 Pulse Rate 103 H 03/17/22 09:28 Respiratory Rate 22 03/17/22 09:28 Blood Pressure 164/107 03/17/22 09:28 O2 Sat by Pulse Oximetry 96 03/17/22 09:28 Pain Scale Pain Intensity 4 - Physical Exam General Appearance: no apparent distress, alert Eye Exam: PERRL/EOMI, eyes nml inspection Ears, Nose, Throat Exam: normal ENT inspection, TMs normal, pharynx normal Neck Exam: normal inspection, non-tender, supple, full range of motion Respiratory Exam: diminished breath sounds, wheezing Cardiovascular Exam: regular rate/rhythm, normal heart sounds Gastrointestinal/Abdomen Exam: soft, normal bowel sounds, No tenderness Back Exam: normal inspection, normal range of motion Extremity Exam: normal inspection, normal range of motion, pelvis stable Neurologic Exam: alert, oriented x 3, cooperative Skin Exam: normal color SpO2 Interpretation: normal SpO2: 96 O2 Delivery: Nasal Cannula - Course EKG Interpreted by Me: RATE (101), Sinus Tach, Left [place] Deviation, LAFB, NORMAL INTERVALS, Non-specific ST Changes Ordered Tests: Active Orders 24 hr Category Date Time Status Content Designer STAT Care 03/17/22 09:38 Active EKG-ER Only STAT Care 03/17/22 09:38 Active IV Insertion STAT Care 03/17/22 09:38 Active Oxygen-ED Only Nasal Cannula 2 lpm Care 03/17/22 09:44 Active CHEST 1 VIEW (PORTABLE) Stat Exams 03/17/22 09:39 Taken CHEST WITH CONTRAST [CT] Stat Exams 03/17/22 11:46 Taken CBC Stat Lab 03/17/22 09:40 Completed CMP Stat Lab 03/17/22 09:40 Completed D-DIMER QUANTITATIVE Stat Lab 03/17/22 09:41 Completed MAG [MAGNESIUM] Stat Lab 03/17/22 09:41 Completed NT PRO BNP Stat Lab 03/17/22 09:40 Completed TROPONIN Q3H Lab 03/17/22 09:40 Completed TROPONIN Q3H Lab 03/17/22 13:08 Completed TROPONIN Q3H Lab 03/17/22 15:45 Ordered TROPONIN Q3H Lab 03/17/22 18:45 Ordered TROPONIN Q3H Lab 03/17/22 21:45 Ordered Respiratory Therapy Assessment DAILY RT 03/17/22 09:56 Active Transfer Order Routine Transfer 03/17/22 Ordered Medication Summary Discontinued Medications Generic Name Dose Route Start Last Admin Trade Name Thu PRN Reason Stop Dose Admin Albuterol/Ipratropium 3 ml 03/17/22 09:49 03/17/22 09:51 Ipratropium/Albuterol Sulfate 3 Ml Ampul.Neb IH 03/17/22 09:50 3 ml STAT ONE Administration Albuterol/Ipratropium Confirm 03/17/22 09:49 Ipratropium/Albuterol Sulfate 3 Ml Ampul.Neb Administered 03/17/22 09:50 Dose 3 ml IH .STK-MED ONE Methylprednisolone Sodium 0 mg 03/17/22 10:51 03/17/22 11:00 Succinate 125 mg/ Sterile IV 03/17/22 10:52 125 mg Water 2 ml STAT ONE Administration Furosemide 60 mg 03/17/22 13:23 03/17/22 13:33 Furosemide 40 Mg/4 Ml Vial IV 03/17/22 13:24 60 mg STAT ONE Administration Furosemide Confirm 03/17/22 13:31 Furosemide 40 Mg/4 Ml Vial Administered 03/17/22 13:32 Dose 80 mg .ROUTE .STK-MED ONE Methylprednisolone Sodium Succinate Confirm 03/17/22 10:58 Methylprednis Sod Succ 125 Mg/2 Ml Vial Administered 03/17/22 10:59 Dose 125 mg .ROUTE .STK-MED ONE Sterile Water Confirm 03/17/22 10:58 Water For Injection,Sterile 10 Ml Vial Administered 03/17/22 10:59 Dose 10 ml IJ .STK-MED ONE Lab/Rad Data: Laboratory Result Diagrams 03/17/22 09:40 03/17/22 09:40 Laboratory Results 03/17/22 03/17/22 03/17/22 Range/Units 13:55 13:08 09:41 WBC (4.0-10.5) K/mm3 RBC (4.1-5.4) M/mm3 Hgb (12.0-16.0) gm/dl Hct (35-47) % MCV (78-100) fl MCH (26-32) pg MCHC (32-36) g/dl RDW (11.5-14.0) % Plt Count (150-450) K/mm3 MPV (7.5-11.0) fl D-Dimer 1512 H* (215-500) ng/mL Sodium (137-145) mmol/L Potassium (3.5-5.1) mmol/L Chloride (98-107) mmol/L Carbon Dioxide (22-30) mmol/L Anion Gap (5-15) MEQ/L BUN (7-17) mg/dL Creatinine (0.52-1.04) mg/dL Estimated GFR ML/MIN Glucose (74-106) mg/dL Calcium (8.4-10.2) mg/dL Magnesium (1.6-2.3) mg/dL Total Bilirubin (0.2-1.3) mg/dL AST (14-36) U/L ALT (0-35) U/L Alkaline Phosphatase (38-126) U/L Troponin I < 0.012 (0.000-0.034) ng/mL NT-Pro-B Natriuret Pep (0-900) pg/mL Serum Total Protein (6.3-8.2) g/dL Albumin (3.5-5.0) g/dL Influenza Type A Ag NEGATIVE (NEGATIVE) Influenza Type B Ag NEGATIVE (NEGATIVE) RSV (PCR) NEGATIVE (Negative) SARS-CoV-2 (PCR) NEGATIVE (NEGATIVE) 03/17/22 03/17/22 03/17/22 Range/Units 09:41 09:40 09:40 WBC (4.0-10.5) K/mm3 RBC (4.1-5.4) M/mm3 Hgb (12.0-16.0) gm/dl Hct (35-47) % MCV (78-100) fl MCH (26-32) pg MCHC (32-36) g/dl RDW (11.5-14.0) % Plt Count (150-450) K/mm3 MPV (7.5-11.0) fl D-Dimer (215-500) ng/mL Sodium 137 (137-145) mmol/L Potassium 4.3 (3.5-5.1) mmol/L Chloride 102 (98-107) mmol/L Carbon Dioxide 27 (22-30) mmol/L Anion Gap 12.5 (5-15) MEQ/L BUN 13 (7-17) mg/dL Creatinine 1.06 H (0.52-1.04) mg/dL Estimated GFR 54.6 ML/MIN Glucose 115 H (74-106) mg/dL Calcium 9.3 (8.4-10.2) mg/dL Magnesium 2.1 (1.6-2.3) mg/dL Total Bilirubin 0.80 (0.2-1.3) mg/dL AST 22 (14-36) U/L ALT 13 (0-35) U/L Alkaline Phosphatase 136 H (38-126) U/L Troponin I 0.013 (0.000-0.034) ng/mL NT-Pro-B Natriuret Pep 474 (0-900) pg/mL Serum Total Protein 7.1 (6.3-8.2) g/dL Albumin 4.0 (3.5-5.0) g/dL Influenza Type A Ag (NEGATIVE) Influenza Type B Ag (NEGATIVE) RSV (PCR) (Negative) SARS-CoV-2 (PCR) (NEGATIVE) 03/17/22 Range/Units 09:40 WBC 6.7 (4.0-10.5) K/mm3 RBC 5.03 (4.1-5.4) M/mm3 Hgb 14.0 (12.0-16.0) gm/dl Hct 43.3 (35-47) % MCV 86.1 (78-100) fl MCH 27.8 (26-32) pg MCHC 32.3 (32-36) g/dl RDW 14.5 H (11.5-14.0) % Plt Count 254 (150-450) K/mm3 MPV 10.0 (7.5-11.0) fl D-Dimer (215-500) ng/mL Sodium (137-145) mmol/L Potassium (3.5-5.1) mmol/L Chloride (98-107) mmol/L Carbon Dioxide (22-30) mmol/L Anion Gap (5-15) MEQ/L BUN (7-17) mg/dL Creatinine (0.52-1.04) mg/dL Estimated GFR ML/MIN Glucose (74-106) mg/dL Calcium (8.4-10.2) mg/dL Magnesium (1.6-2.3) mg/dL Total Bilirubin (0.2-1.3) mg/dL AST (14-36) U/L ALT (0-35) U/L Alkaline Phosphatase (38-126) U/L Troponin I (0.000-0.034) ng/mL NT-Pro-B Natriuret Pep (0-900) pg/mL Serum Total Protein (6.3-8.2) g/dL Albumin (3.5-5.0) g/dL Influenza Type A Ag (NEGATIVE) Influenza Type B Ag (NEGATIVE) RSV (PCR) (Negative) SARS-CoV-2 (PCR) (NEGATIVE) - Progress Progress: improved Air Movement: fair Progress Note: 03/17/22 14:09 67-year-old is evaluated for chest pain/shortness of breath. Given DuoNeb and Solu-Medrol along with a dose of Lasix. On reevaluation patient is feeling better. EKG shows sinus tach without any ST elevation and negative troponins. Has elevated D-dimer and CTA is negative for pulmonary embolism. I believe patient has a COPD exacerbation and will continue with nebs and steroids and also trend cardiac enzymes. Discussed with Dr. Ardon and patient is excepted for admission. Blood Culture(s) Obtained: Yes Antibiotics given: No Discussed with : Sofie Will see patient in: hospital (observation) Counseled pt/family regarding: lab results, diagnosis, rad results - Departure Departure Disposition: Observation Clinical Impression: Acute exacerbation of chronic obstructive pulmonary disease (COPD), Chest pain, rule out acute myocardial infarction Condition: Stable Critical Care Time: No Referrals: DANY GUTHRIE [Primary Care Provider] - Follow up/PCP as directed Instructions: Chronic Obstructive Pulmonary Disease
[2022-03-17] MEDS ORDERED: Sterile H2O 10 ml IJ ONE (10:58)
[2022-03-17] MEDS ORDERED: solu-MEDROL ONE ×2 (10:58→17:21)
[2022-03-17] MEDS ORDERED: Lasix 40 MG/4 ML IV ONE (13:23)
[2022-03-17] MEDS ORDERED: Lasix 40 MG/4 ML ONE (13:31)
[2022-03-17 14:43] LABS: INFLUENZA A NEGATIVE (NEGATIVE); INFLUENZA B NEGATIVE (NEGATIVE); RESPIRATORY SYNCTIAL VIRUS NEGATIVE (Negative); SARS-CoV-2 Xpert Express NEGATIVE (NEGATIVE)
[2022-03-17] MEDS ORDERED: HUMALOG SQ PRN ×2 (16:22→17:01)
[2022-03-17] MEDS ORDERED: ULTRAM 50 MG PO PRN (17:19)
[2022-03-17] MEDS: solu-MEDROL 60 MG, Sterile H2O 10 ml 2 ML IV SCH ×2 (17:24)
[2022-03-17] MEDS: DUONEB 0.5-3 MG/3 ml Neb IH SCH (18:36)
--- NOTE | 2022-03-17 20:49 | XRAY ---
Indication: Short of breath, cough, and elevated d-dimer. Multiple contiguous axial images obtained through the chest using 80 cc of Isovue-370 contrast and PE protocol. Comparison: September 15, 2021. Good opacification of the pulmonary arteries to include the lobar and segmental branches. No pulmonary embolus. Heart borderline enlarged. Aorta remains mildly arteriosclerotic without aneurysm/dissection. Stable tiny right hilar calcified nodes. No pathologic mediastinal/hilar lymphadenopathy. Lungs again demonstrates diffuse pulmonary emphysema with scattered fibrosis/scarring. No suspicious pulmonary mass, infiltrate, or effusion. Bony thorax intact again with mild osteopenia and mild degenerative changes throughout the spine. Limited upper abdomen again demonstrates splenic calcified granulomas and cholecystectomy clips. Impression: 1. Continued negative pulmonary embolus. No new/acute cardiopulmonary abnormalities. 2. Again borderline cardiomegaly, pulmonary emphysema, scattered fibrosis/scarring, chronic bony findings, and old granulomatous disease. Comment: Preliminary interpretation made by [facility]. No critical discrepancy.
--- NOTE | 2022-03-17 20:51 | XRAY ---
Indication: Short of breath, cough, COPD, and chest pain. Comparison: September 17, 2021. Portable chest again hyperinflated with chronic lung markings, borderline cardiomegaly, and arteriosclerotic aorta. No new/acute cardiopulmonary abnormalities. Bony thorax intact with osteopenia and degenerative changes.
[2022-03-17] MEDS ORDERED: DESYREL 50 MG PO ONE (22:00)
[2022-03-17] MEDS ORDERED: LIPITOR 40MG PO ONE (22:00)
[2022-03-17] MEDS ORDERED: COREG 12.5 MG PO ONE (22:00)
[2022-03-17] MEDS ORDERED: ENTRESTO 49 MG-51 MG TABLET PO ONE (22:00)
[2022-03-18] MEDS ORDERED: solu-MEDROL ONE ×2 (01:34→06:32)
[2022-03-18] MEDS: solu-MEDROL 60 MG, Sterile H2O 10 ml 2 ML IV SCH ×8 (01:39→18:29)
[2022-03-18] MEDS: DUONEB 0.5-3 MG/3 ml Neb IH SCH ×4 (02:58→19:31)
[2022-03-18 06:23] LABS: Absolute Neutrophil Ct (ANC) 7.68 (1.4-6.9); Basophil (Absolute #) 0 (0-0.4); Eosinophil (Absolute #) 0 (0-0.5); Hematocrit 42.4 % (35-47); Hemoglobin 13.7 gm/dl (12.0-16.0); Lymphocyte (Absolute #) 0.76 (1.0-4.6); Lymphocytes % 8.9 % (24.0-44.0); Mean Cell Volume 86.5 fl (78-100); Mean Corpuscular Hgb Concent. 32.3 g/dl (32-36); Mean Platelet Volume 10.4 fl (7.5-11.0); Monocyte (Absolute #) 0.14 (0.0-1.3); Monocytes % 1.6 % (0.0-12.0); Neutrophil % 89.5 % (36.0-66.0); Platelet Count 255 K/mm3 (150-450); Red Cell Distribution Width 14.5 % (11.5-14.0); White Blood Count 8.6 K/mm3 (4.0-10.5)
[2022-03-18 06:24] LABS: ALBUMIN 4.1 g/dL (3.5-5.0); ANION GAP 16.7 MEQ/L (5-15); BILIRUBIN,TOTAL 0.6 mg/dL (0.2-1.3); Creatinine 1 1.31 mg/dL (0.52-1.04); EST GLOMERULAR FILTRATION RATE 42.8 ML/MIN; Total Protein 7.5 g/dL (6.3-8.2)
[2022-03-18] MEDS: PROTONIX 40 MG IV IV SCH (09:18)
[2022-03-18] MEDS: Aldactone 25 MG PO SCH (09:18)
[2022-03-18] MEDS: ECOTRIN 81 MG PO SCH (09:18)
[2022-03-18] MEDS: LASIX 20 MG PO SCH (09:18)
[2022-03-18] MEDS: ENOXAPARIN SODIUM SQ SCH (09:18)
[2022-03-18] MEDS: ENTRESTO 49 MG-51 MG TABLET PO SCH ×2 (09:18→22:36)
[2022-03-18] MEDS: COREG 12.5 MG PO SCH ×2 (09:18→22:36)
--- NOTE | 2022-03-18 09:33 | PCM.HP ---
History of Present Illness - Chief Complaint Chief Complaint: CHF. COPD History of Present Illness: is a 67 year old female pt of mine from [facility] with COPD, chr hypox resp fail (on 2L O2) CHF, CAD, HTN, hyperlipidemia, TOB abuse who was admitted through ER with COPD exacerbation and to rule out DC. She c/o RANDLE/sinus drainage, that is chronic, but worse for the past 1-2d. Had duoneb, solumed, lasix in ER and felt better. d-dimer was elevated at 1512, but CT chest neg for PE, nonacute. CXR nonacute. Labs nonacute. Her renal function was mildly decreased yesterday with eGFR 54.6 - today is 42.8 so her lasix will be decreased. She is feeling better today, just c/o RANDLE - thinks worse with pollen lately and humidity. Denies fevers. - Review of Systems Respiratory: Cough (prod yellow sputum), Short Of Breath, Wheezing Cardiac: Chest Pain (substernal, worse with deep breath) Abdominal/Gastrointestinal: Abdominal Pain (chrnic with eating) Genitourinary Symptoms: Hematuria (microscopic; no ubaldo) Psychological: No Anxiety, No Depression All Other Systems: Reviewed and Negative Medications & Allergies Home Medications: Home Medication List Albuterol 8 gm Mdi Hfa [Ventolin Hfa MDI] 2 puffs IH Q4H PRN PRN 08/02/15 [History Confirmed 03/17/22] Atorvastatin Calcium [Lipitor] 40 mg PO HS 12/06/18 [History Confirmed 03/17/22] Carvedilol 12.5 mg [Coreg 12.5 mg] 25 mg PO BID 11/12/20 [History Confirmed 03/17/22] Furosemide 40 mg [Lasix 40 MG] 20 mg PO DAILY 05/23/21 [History Confirmed 03/17/22] Dapagliflozin Propanediol [Farxiga] 10 mg PO DAILY 12/07/21 [History Confirmed 03/17/22] Fluticasone/Umeclidin/Vilanter [Trelegy Ellipta 200-62.5-25] 1 each IH DAILY 12/07/21 [History Confirmed 03/17/22] Spironolactone 25 mg [Aldactone 25 MG] 25 mg PO DAILY 12/07/21 [History Confirmed 03/17/22] Tramadol HCl 50 mg [Ultram 50 mg] 50 mg PO Q6HPRN PRN 12/07/21 [History Confirmed 03/17/22] Trazodone HCl 50 mg [Desyrel 50 mg] 50 mg PO HS 12/07/21 [History Confirmed 03/17/22] Aspirin 81 gm Chew [Baby Aspirin 81 mg Chew] 81 mg PO DAILY #0 12/11/21 [Rx Confirmed 03/17/22] Ipratropium/Albuterol Sulfate [Iprat-Albut 0.5-3(2.5) mg/3 ml] 3 ml IH Q4H PRN PRN 12/11/21 [History Confirmed 03/17/22] Sacubitril/Valsartan [Entresto 49 mg-51 mg Tablet] 1 tablet PO BID 03/17/22 [History Confirmed 03/17/22] Allergies/Adverse Reactions: Allergies Allergy/AdvReac Type Severity Reaction Status Date / Time No Known Drug Allergies Allergy Verified 03/17/22 09:35 - Past Medical History Past Medical History: Yes Neurological History: Migraines ENT History: No Pertinent History Cardiac History: Congestive Heart Failure, Coronary Artery Disease, High Cholesterol, Hypertension, Myocardial Infarction (DC) Respiratory History: Asthma, Bronchitis, CHF, COPD, Emphysema, Pneumonia, Other Endocrine Medical History: Diabetes Type II Musculoskelatal History: Arthritis GI Medical History: GERD, Gallbladder Disease History: No Pertinent History Pyscho-Social History: Anxiety Reproductive Disorders: No Pertinent History Comment: 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 - Past Surgical History Past Surgical History: Yes Neuro Surgical History: No Pertinent History Cardiac History: No Pertinent History Respiratory Surgery: No Pertinent History GI Surgical History: Cholecystectomy Genitourinary Surgical Hx: No Pertinent History Musculskeletal Surgical Hx: Orthopedic Surgery Female Surgical History: Hysterectomy Other Surgical History: right knee replacement, screw in pelvis, misha in left leg - Social History Smoking Status: Current every day smoker How long have you smoked: 50 years Exposure to second hand smoke: No Alcohol: None Drug Use: none Significant Family History: no pertinent family hx - Physical Exam Vital Signs: Vital Signs - 24 hr Temp Pulse Pulse Resp BP Pulse Ox 03/18/22 08:00 98.2 F 88 21 136/84 93 L 03/18/22 07:31 87 12 93 L 03/18/22 04:00 96.8 F 81 20 120/68 95 03/18/22 00:00 97.3 F 84 17 109/58 89 L 03/17/22 19:41 97.1 F 89 18 125/72 98 03/17/22 18:38 90 20 94 L 03/17/22 17:08 94 L 03/17/22 17:04 88 16 94 L 03/17/22 16:37 97 F 89 19 164/88 96 03/17/22 16:36 97 F 89 19 164/88 96 03/17/22 16:07 96 03/17/22 16:00 83 20 97 03/17/22 15:00 87 18 140/102 98 03/17/22 14:00 80 20 151/110 97 03/17/22 13:21 76 18 154/102 97 03/17/22 12:22 153/102 03/17/22 11:00 88 20 157/110 96 03/17/22 09:56 92 H 14 96 03/17/22 09:32 94 H 03/17/22 09:28 97.0 F 103 H 22 164/107 96 General Appearance: no apparent distress, alert Neurologic Exam: oriented x 3, cooperative, normal mood/affect Eye Exam: eyes nml inspection Ears, Nose, Throat Exam: moist mucous membranes Neck Exam: normal inspection Respiratory Exam: diminished breath sounds (good air exchange), No crackles/rales, No rhonchi, No wheezing Cardiovascular Exam: regular rate/rhythm, normal heart sounds, No murmur Gastrointestinal/Abdomen Exam: soft, normal bowel sounds, No tenderness, No distention, No mass, No guarding, No rebound Back Exam: normal inspection, No rash Extremity Exam: normal inspection, No pedal edema, No swelling Skin Exam: normal color, warm, dry, No rash Results - Labs Lab/Micro Results: Lab Results-Last 24 Hours 03/17/22 03/17/22 03/17/22 Range/Units 09:40 09:40 09:40 WBC 6.7 (4.0-10.5) K/mm3 RBC 5.03 (4.1-5.4) M/mm3 Hgb 14.0 (12.0-16.0) gm/dl Hct 43.3 (35-47) % MCV 86.1 (78-100) fl MCH 27.8 (26-32) pg MCHC 32.3 (32-36) g/dl RDW 14.5 H (11.5-14.0) % Plt Count 254 (150-450) K/mm3 MPV 10.0 (7.5-11.0) fl Gran % (36.0-66.0) % Eos # (Auto) (0-0.5) Absolute Lymphs (auto) (1.0-4.6) Absolute Monos (auto) (0.0-1.3) Lymphocytes % (24.0-44.0) % Monocytes % (0.0-12.0) % Eosinophils % (0.00-5.0) % Basophils % (0.0-0.4) % Absolute Granulocytes (1.4-6.9) Basophils # (0-0.4) D-Dimer (215-500) ng/mL Sodium 137 (137-145) mmol/L Potassium 4.3 (3.5-5.1) mmol/L Chloride 102 (98-107) mmol/L Carbon Dioxide 27 (22-30) mmol/L Anion Gap 12.5 (5-15) MEQ/L BUN 13 (7-17) mg/dL Creatinine 1.06 H (0.52-1.04) mg/dL Estimated GFR 54.6 ML/MIN Glucose 115 H (74-106) mg/dL POC Glucometer (74 to 106) mg/dL Calcium 9.3 (8.4-10.2) mg/dL Magnesium (1.6-2.3) mg/dL Total Bilirubin 0.80 (0.2-1.3) mg/dL AST 22 (14-36) U/L ALT 13 (0-35) U/L Alkaline Phosphatase 136 H (38-126) U/L Troponin I 0.013 (0.000-0.034) ng/mL NT-Pro-B Natriuret Pep 474 (0-900) pg/mL Serum Total Protein 7.1 (6.3-8.2) g/dL Albumin 4.0 (3.5-5.0) g/dL Influenza Type A Ag (NEGATIVE) Influenza Type B Ag (NEGATIVE) RSV (PCR) (Negative) SARS-CoV-2 (PCR) (NEGATIVE) 03/17/22 03/17/22 03/17/22 Range/Units 09:41 09:41 13:08 WBC (4.0-10.5) K/mm3 RBC (4.1-5.4) M/mm3 Hgb (12.0-16.0) gm/dl Hct (35-47) % MCV (78-100) fl MCH (26-32) pg MCHC (32-36) g/dl RDW (11.5-14.0) % Plt Count (150-450) K/mm3 MPV (7.5-11.0) fl Gran % (36.0-66.0) % Eos # (Auto) (0-0.5) Absolute Lymphs (auto) (1.0-4.6) Absolute Monos (auto) (0.0-1.3) Lymphocytes % (24.0-44.0) % Monocytes % (0.0-12.0) % Eosinophils % (0.00-5.0) % Basophils % (0.0-0.4) % Absolute Granulocytes (1.4-6.9) Basophils # (0-0.4) D-Dimer 1512 H* (215-500) ng/mL Sodium (137-145) mmol/L Potassium (3.5-5.1) mmol/L Chloride (98-107) mmol/L Carbon Dioxide (22-30) mmol/L Anion Gap (5-15) MEQ/L BUN (7-17) mg/dL Creatinine (0.52-1.04) mg/dL Estimated GFR ML/MIN Glucose (74-106) mg/dL POC Glucometer (74 to 106) mg/dL Calcium (8.4-10.2) mg/dL Magnesium 2.1 (1.6-2.3) mg/dL Total Bilirubin (0.2-1.3) mg/dL AST (14-36) U/L ALT (0-35) U/L Alkaline Phosphatase (38-126) U/L Troponin I < 0.012 (0.000-0.034) ng/mL NT-Pro-B Natriuret Pep (0-900) pg/mL Serum Total Protein (6.3-8.2) g/dL Albumin (3.5-5.0) g/dL Influenza Type A Ag (NEGATIVE) Influenza Type B Ag (NEGATIVE) RSV (PCR) (Negative) SARS-CoV-2 (PCR) (NEGATIVE) 03/17/22 03/17/22 03/17/22 Range/Units 13:55 15:41 18:57 WBC (4.0-10.5) K/mm3 RBC (4.1-5.4) M/mm3 Hgb (12.0-16.0) gm/dl Hct (35-47) % MCV (78-100) fl MCH (26-32) pg MCHC (32-36) g/dl RDW (11.5-14.0) % Plt Count (150-450) K/mm3 MPV (7.5-11.0) fl Gran % (36.0-66.0) % Eos # (Auto) (0-0.5) Absolute Lymphs (auto) (1.0-4.6) Absolute Monos (auto) (0.0-1.3) Lymphocytes % (24.0-44.0) % Monocytes % (0.0-12.0) % Eosinophils % (0.00-5.0) % Basophils % (0.0-0.4) % Absolute Granulocytes (1.4-6.9) Basophils # (0-0.4) D-Dimer (215-500) ng/mL Sodium (137-145) mmol/L Potassium (3.5-5.1) mmol/L Chloride (98-107) mmol/L Carbon Dioxide (22-30) mmol/L Anion Gap (5-15) MEQ/L BUN (7-17) mg/dL Creatinine (0.52-1.04) mg/dL Estimated GFR ML/MIN Glucose (74-106) mg/dL POC Glucometer (74 to 106) mg/dL Calcium (8.4-10.2) mg/dL Magnesium (1.6-2.3) mg/dL Total Bilirubin (0.2-1.3) mg/dL AST (14-36) U/L ALT (0-35) U/L Alkaline Phosphatase (38-126) U/L Troponin I < 0.012 < 0.012 (0.000-0.034) ng/mL NT-Pro-B Natriuret Pep (0-900) pg/mL Serum Total Protein (6.3-8.2) g/dL Albumin (3.5-5.0) g/dL Influenza Type A Ag NEGATIVE (NEGATIVE) Influenza Type B Ag NEGATIVE (NEGATIVE) RSV (PCR) NEGATIVE (Negative) SARS-CoV-2 (PCR) NEGATIVE (NEGATIVE) 03/17/22 03/18/22 03/18/22 Range/Units 21:26 05:18 05:18 WBC 8.6 (4.0-10.5) K/mm3 RBC 4.90 (4.1-5.4) M/mm3 Hgb 13.7 (12.0-16.0) gm/dl Hct 42.4 (35-47) % MCV 86.5 (78-100) fl MCH 28.0 (26-32) pg MCHC 32.3 (32-36) g/dl RDW 14.5 H (11.5-14.0) % Plt Count 255 (150-450) K/mm3 MPV 10.4 (7.5-11.0) fl Gran % 89.5 H (36.0-66.0) % Eos # (Auto) 0 (0-0.5) Absolute Lymphs (auto) 0.76 L (1.0-4.6) Absolute Monos (auto) 0.14 (0.0-1.3) Lymphocytes % 8.9 L (24.0-44.0) % Monocytes % 1.6 (0.0-12.0) % Eosinophils % 0.0 (0.00-5.0) % Basophils % 0.0 (0.0-0.4) % Absolute Granulocytes 7.68 H (1.4-6.9) Basophils # 0 (0-0.4) D-Dimer (215-500) ng/mL Sodium 133 L (137-145) mmol/L Potassium 4.0 (3.5-5.1) mmol/L Chloride 96 L (98-107) mmol/L Carbon Dioxide 24 (22-30) mmol/L Anion Gap 16.7 H (5-15) MEQ/L BUN 29 H (7-17) mg/dL Creatinine 1.31 H (0.52-1.04) mg/dL Estimated GFR 42.8 ML/MIN Glucose 230 H (74-106) mg/dL POC Glucometer (74 to 106) mg/dL Calcium 9.0 (8.4-10.2) mg/dL Magnesium (1.6-2.3) mg/dL Total Bilirubin 0.60 (0.2-1.3) mg/dL AST 25 (14-36) U/L ALT 18 (0-35) U/L Alkaline Phosphatase 135 H (38-126) U/L Troponin I < 0.012 (0.000-0.034) ng/mL NT-Pro-B Natriuret Pep (0-900) pg/mL Serum Total Protein 7.5 (6.3-8.2) g/dL Albumin 4.1 (3.5-5.0) g/dL Influenza Type A Ag (NEGATIVE) Influenza Type B Ag (NEGATIVE) RSV (PCR) (Negative) SARS-CoV-2 (PCR) (NEGATIVE) 03/18/22 Range/Units 07:46 WBC (4.0-10.5) K/mm3 RBC (4.1-5.4) M/mm3 Hgb (12.0-16.0) gm/dl Hct (35-47) % MCV (78-100) fl MCH (26-32) pg MCHC (32-36) g/dl RDW (11.5-14.0) % Plt Count (150-450) K/mm3 MPV (7.5-11.0) fl Gran % (36.0-66.0) % Eos # (Auto) (0-0.5) Absolute Lymphs (auto) (1.0-4.6) Absolute Monos (auto) (0.0-1.3) Lymphocytes % (24.0-44.0) % Monocytes % (0.0-12.0) % Eosinophils % (0.00-5.0) % Basophils % (0.0-0.4) % Absolute Granulocytes (1.4-6.9) Basophils # (0-0.4) D-Dimer (215-500) ng/mL Sodium (137-145) mmol/L Potassium (3.5-5.1) mmol/L Chloride (98-107) mmol/L Carbon Dioxide (22-30) mmol/L Anion Gap (5-15) MEQ/L BUN (7-17) mg/dL Creatinine (0.52-1.04) mg/dL Estimated GFR ML/MIN Glucose (74-106) mg/dL POC Glucometer 246 H (74 to 106) mg/dL Calcium (8.4-10.2) mg/dL Magnesium (1.6-2.3) mg/dL Total Bilirubin (0.2-1.3) mg/dL AST (14-36) U/L ALT (0-35) U/L Alkaline Phosphatase (38-126) U/L Troponin I (0.000-0.034) ng/mL NT-Pro-B Natriuret Pep (0-900) pg/mL Serum Total Protein (6.3-8.2) g/dL Albumin (3.5-5.0) g/dL Influenza Type A Ag (NEGATIVE) Influenza Type B Ag (NEGATIVE) RSV (PCR) (Negative) SARS-CoV-2 (PCR) (NEGATIVE) Accuchecks Date 03/18/22 Time 07:46 - Radiology Impressions Radiology Exams & Impressions: Radiology Procedures Category Date Time Status CHEST 1 VIEW (PORTABLE) Stat Exams 03/17/22 09:39 Completed CHEST WITH CONTRAST [CT] Stat Exams 03/17/22 11:46 Completed - Other Procedures and Tests Respiratory Therapy 03/17/22 09:56 Respiratory Therapy Assessment DAILY 03/17/22 16:22 Oxygen Nasal Cannula 2 lpm Assessment/Plan (1) Acute exacerbation of chronic obstructive pulmonary disease (COPD) Current Visit: Yes Status: Acute Assessment & Plan: on steroids; adding abx for sinus infection Code(s): J44.1 - CHRONIC OBSTRUCTIVE PULMONARY DISEASE W (ACUTE) EXACERBATION (2) Chronic sinusitis Current Visit: Yes Status: Acute Qualifiers: Sinusitis location: frontal Qualified Code(s): J32.1 - Chronic frontal sinusitis Code(s): J32.9 - CHRONIC SINUSITIS, UNSPECIFIED (3) CHF exacerbation Current Visit: Yes Status: Acute Qualifiers: Heart failure type: systolic Qualified Code(s): I50.23 - Acute on chronic systolic (congestive) heart failure Assessment & Plan: EF 27% per echo 10/2021. To appt outpatient tomorrow for defibrillator - will ensure she is discharged in the morning (appt at 1:30 pm) Code(s): I50.9 - HEART FAILURE, UNSPECIFIED (4) Chest pain, rule out acute myocardial infarction Current Visit: Yes Status: Acute Assessment & Plan: Troponins neg x5. Code(s): R07.9 - CHEST PAIN, UNSPECIFIED
[2022-03-18] MEDS ORDERED: NON-FORMULARY ITEM (Fluticasone/Umeclidin/Vilanter [Trelegy Ellipta 200-62.5-25] 1 EACH Bl IH SCH (10:00)
[2022-03-18] MEDS ORDERED: Lasix 40 MG PO SCH (10:00)
[2022-03-18] MEDS ORDERED: BABY ASPIRIN 81 MG CHEW PO SCH (10:00)
[2022-03-18] MEDS ORDERED: PATIENT OWN MEDICATION IH SCH (10:00)
[2022-03-18] MEDS: ROCEPHIN 1 Gm-D5w 50 ml Bag** 1 G/50 ML IVPB IV SCH (10:01)
[2022-03-18] MEDS ORDERED: ZOCOR 20MG PO SCH (22:00)
[2022-03-18] MEDS ORDERED: DESYREL 50 MG PO SCH (22:00)
[2022-03-18] MEDS ORDERED: LIPITOR 40MG PO SCH (22:00)
[2022-03-19] MEDS ORDERED: solu-MEDROL ONE (00:10)
[2022-03-19] MEDS: solu-MEDROL 60 MG, Sterile H2O 10 ml 2 ML IV SCH ×4 (00:25→06:21)
[2022-03-19] MEDS: DUONEB 0.5-3 MG/3 ml Neb IH SCH ×2 (00:57→06:38)
[2022-03-19 05:21] LABS: Absolute Neutrophil Ct (ANC) 9.93 (1.4-6.9); Basophil (Absolute #) 0.01 (0-0.4); Eosinophil (Absolute #) 0 (0-0.5); Hematocrit 39.2 % (35-47); Hemoglobin 12.5 gm/dl (12.0-16.0); Lymphocyte (Absolute #) 0.65 (1.0-4.6); Mean Cell Volume 86.7 fl (78-100); Mean Corpuscular Hemoglobin 27.7 pg (26-32); Mean Corpuscular Hgb Concent. 31.9 g/dl (32-36); Mean Platelet Volume 10.1 fl (7.5-11.0); Monocyte (Absolute #) 0.31 (0.0-1.3); Monocytes % 2.8 % (0.0-12.0); Neutrophil % 91.1 % (36.0-66.0); Platelet Count 236 K/mm3 (150-450); Red Blood Count 4.52 M/mm3 (4.1-5.4); Red Cell Distribution Width 14.4 % (11.5-14.0); White Blood Count 10.9 K/mm3 (4.0-10.5)
[2022-03-19 05:57] LABS: ANION GAP 9.8 MEQ/L (5-15); BLOOD UREA NITROGEN 29 mg/dL (7-17); CHLORIDE 100 mmol/L (98-107); Calcium 8.6 mg/dL (8.4-10.2); Carbon Dioxide 28 mmol/L (22-30); Creatinine 1 0.97 mg/dL (0.52-1.04); EST GLOMERULAR FILTRATION RATE > 60.0 ML/MIN; Glucose 165 mg/dL (74-106); SODIUM 134 mmol/L (137-145)
[2022-03-19] MEDS: ROCEPHIN 1 Gm-D5w 50 ml Bag** 1 G/50 ML IVPB IV SCH (06:45)
[2022-03-19 07:28] VITALS: BP 153/80; PULSE 110; O2SAT 93
--- NOTE | 2022-03-19 07:49 | PCM.DS ---
Discharge Summary Date of Admission: 03/17/22 16:21 Admitting Physician: DANY GUTHRIE Primary Care Provider: DANY GUTHRIE Allergies Allergies No Known Drug Allergies Allergy (Verified 03/17/22 09:35) Hospital Summary - Hospital Course Hospital Course: pt is a 67yo femal pt of of mine with COPD, CHF (severe systolic) and TOB abuse who was admitted with CPOD exacerbation and CP to rule out [facility]. Also had CHF exacerbation. D-dimer was elevated on admission but CT chest was neg for PE. Labs otherwise nonacute. She was given IV steroids and IV lasix; on her second hospital stay, her eGFR had fallen to 42.8 from >50 on arrival, so her lasix was decreased and this morning eGFR is >60. I added IV antibiotics for likely sinusitis, acute on chronic, and she has improved. This morning her exam is benign. She will be discharged to home; has an appointment at 1:30 regarding possible AICD placement. F/u with me in 1-2 weeks. - Vitals & Intake/Output Vital Signs: Vital Signs Temperature 98.6 F 03/19/22 07:27 Pulse Rate 110 H 03/19/22 07:27 Respiratory Rate 16 03/19/22 07:27 Blood Pressure 153/80 03/19/22 07:27 O2 Sat by Pulse Oximetry 93 L 03/19/22 07:27 Intake & Output: Intake & Output 03/16/22 03/17/22 03/18/22 03/19/22 11:59 11:59 11:59 11:59 Intake Total 1160 1000 Output Total 400 Balance 760 1000 Weight 76.8 kg 77.6 kg 77.1 kg - Lab Result Diagrams: 03/19/22 04:30 03/19/22 04:30 Lab Results-Last 24 Hrs: Lab Results-Last 24 Hours 03/18/22 03/19/22 03/19/22 Range/Units 07:46 04:30 04:30 WBC 10.9 H (4.0-10.5) K/mm3 RBC 4.52 (4.1-5.4) M/mm3 Hgb 12.5 (12.0-16.0) gm/dl Hct 39.2 (35-47) % MCV 86.7 (78-100) fl MCH 27.7 (26-32) pg MCHC 31.9 L (32-36) g/dl RDW 14.4 H (11.5-14.0) % Plt Count 236 (150-450) K/mm3 MPV 10.1 (7.5-11.0) fl Gran % 91.1 H (36.0-66.0) % Eos # (Auto) 0 (0-0.5) Absolute Lymphs (auto) 0.65 L (1.0-4.6) Absolute Monos (auto) 0.31 (0.0-1.3) Lymphocytes % 6.0 L (24.0-44.0) % Monocytes % 2.8 (0.0-12.0) % Eosinophils % 0.0 (0.00-5.0) % Basophils % 0.1 (0.0-0.4) % Absolute Granulocytes 9.93 H (1.4-6.9) Basophils # 0.01 (0-0.4) Sodium 134 L (137-145) mmol/L Potassium 4.0 (3.5-5.1) mmol/L Chloride 100 (98-107) mmol/L Carbon Dioxide 28 (22-30) mmol/L Anion Gap 9.8 (5-15) MEQ/L BUN 29 H (7-17) mg/dL Creatinine 0.97 (0.52-1.04) mg/dL Estimated GFR > 60.0 ML/MIN Glucose 165 H (74-106) mg/dL POC Glucometer 246 H (74 to 106) mg/dL Calcium 8.6 (8.4-10.2) mg/dL - Radiology Exams Ordered Rad Exams-Entire Visit: Radiology Procedures Category Date Time Status CHEST 1 VIEW (PORTABLE) Stat Exams 03/17/22 09:39 Completed CHEST WITH CONTRAST [CT] Stat Exams 03/17/22 11:46 Completed - Procedures and Test Procedures and Tests throughout Hospitalization: Therapy Orders & Screens 03/17/22 09:56 Respiratory Therapy Assessment DAILY Comment: 03/17/22 16:22 Oxygen Nasal Cannula 2 lpm Comment: 03/17/22 16:52 RT Screen per Nursing Assess ONCE Comment: Protocol Order Physician Instructions: Greater than 3 points order RT Admission Screen Reason For Exam: Triggered on Admission Diagnosis: CHF. COPD Diagnosis: CHF. COPD Pneumonia: Yes Home O2: Yes Asthma: Yes CHF: Yes Home CPAP/BIPAP: Yes Home Nebs/MDI: Yes Total Points: 25 Smoking Cessation Education ONCE Comment: Diagnosis: CHF. COPD Smoking Status: Current every day smoker How long have you smoked: 50 years Have you smoked in the past 12 months: Yes Approximately how many cigarettes per day: 1/2 pack Do you dip or chew tobacco: No Discharge Exam General Appearance: no apparent distress, alert Neurologic Exam: oriented x 3, cooperative Eye Exam: No scleral icterus Ears, Nose, Throat Exam: moist mucous membranes Neck Exam: normal inspection Respiratory Exam: lungs clear, diminished breath sounds (good air exchange), No crackles/rales, No rhonchi, No wheezing Cardiovascular Exam: regular rate/rhythm, normal heart sounds, No murmur Gastrointestinal/Abdomen Exam: soft, normal bowel sounds, No tenderness, No distention Back Exam: normal inspection, No rash Extremity Exam: normal inspection, No pedal edema, No swelling Skin Exam: normal color, warm, dry, No rash Final Diagnosis/Problem List - Final Discharge Diagnosis/Problem (1) Acute exacerbation of chronic obstructive pulmonary disease (COPD) Current Visit: Yes Status: Acute Assessment & Plan: much improved. Home on po prednisone. Code(s): J44.1 - CHRONIC OBSTRUCTIVE PULMONARY DISEASE W (ACUTE) EXACERBATION (2) Chronic sinusitis Current Visit: Yes Status: Acute Assessment & Plan: home on po antibiotics Code(s): J32.9 - CHRONIC SINUSITIS, UNSPECIFIED (3) CHF exacerbation Current Visit: Yes Status: Acute Assessment & Plan: acute on chronic - home on usual dose of lasix po. Code(s): I50.9 - HEART FAILURE, UNSPECIFIED (4) Chest pain, rule out acute myocardial infarction Current Visit: Yes Status: Acute Code(s): R07.9 - CHEST PAIN, UNSPECIFIED - Discharge Disposition: Home, Self-Care Condition: Good Prescriptions: New Lactobacillus Acidophilus [Acidophilus TABLET] 1 tab PO TID #30 tablet Amox Tr/Potass Clav. 875 mg [Augmentin 875-125 Tablet] 875 mg PO BID #16 tablet Prednisone 20 mg [Deltasone 20 mg] 20 mg PO DAILY #17 tablet Continue Albuterol 8 gm Mdi Hfa [Ventolin Hfa MDI] 2 puffs IH Q4H PRN PRN PRN Reason: Shortness Of Breath Atorvastatin Calcium [Lipitor] 40 mg PO HS Carvedilol 12.5 mg [Coreg 12.5 mg] 25 mg PO BID Furosemide 40 mg [Lasix 40 MG] 20 mg PO DAILY Trazodone HCl 50 mg [Desyrel 50 mg] 50 mg PO HS Tramadol HCl 50 mg [Ultram 50 mg] 50 mg PO Q6HPRN PRN PRN Reason: Moderate To Severe Pain Spironolactone 25 mg [Aldactone 25 MG] 25 mg PO DAILY Dapagliflozin Propanediol [Farxiga] 10 mg PO DAILY Fluticasone/Umeclidin/Vilanter [Trelegy Ellipta 200-62.5-25] 1 each IH DAILY Ipratropium/Albuterol Sulfate [Iprat-Albut 0.5-3(2.5) mg/3 ml] 3 ml IH Q4H PRN PRN PRN Reason: Shortness Of Breath/Wheezing Aspirin 81 gm Chew [Baby Aspirin 81 mg Chew] 81 mg PO DAILY #0 Sacubitril/Valsartan [Entresto 49 mg-51 mg Tablet] 1 tablet PO BID Follow up with: DANY GUTHRIE [Primary Care Provider] -
[2022-03-19] MEDS: ENTRESTO 49 MG-51 MG TABLET PO SCH (07:56)
[2022-03-19] MEDS: ECOTRIN 81 MG PO SCH (07:56)
[2022-03-19] MEDS: PROTONIX 40 MG IV IV SCH (07:56)
[2022-03-19] MEDS: Aldactone 25 MG PO SCH (07:56)
[2022-03-19] MEDS: LASIX 20 MG PO SCH (07:56)
[2022-03-19] MEDS: COREG 12.5 MG PO SCH (07:56)
[2022-03-19] MEDS: ENOXAPARIN SODIUM SQ SCH (07:57)
== END 2022-03-19 08:56 | disposition home or self-care (01) ==
LOC: ED 09:25 → MED SURG 16:21
PROVIDERS: ADMIT Family Medicine; ATTEND Family Medicine
DX: J44.1 Chronic obstructive pulmonary disease with (acute) exacerbation (principal); J32.9 Chronic sinusitis, unspecified; I11.0 Hypertensive heart disease with heart failure; I50.9 Heart failure, unspecified; R07.9 Chest pain, unspecified; E11.9 Type 2 diabetes mellitus without complications; E78.5 Hyperlipidemia, unspecified; I25.10 Atherosclerotic heart disease of native coronary artery without angina pectoris; R79.89 Other specified abnormal findings of blood chemistry; R51.9 Headache, unspecified; I25.2 Old myocardial infarction; Z72.0 Tobacco use; Z20.828 Contact with and (suspected) exposure to other viral communicable diseases; Z79.899 Other long term (current) drug therapy; Z99.81 Dependence on supplemental oxygen
CPT/HCPCS: 0241U; 36000; 36415; 71045; 71260; 80048; 80053; 82947; 83735; 83880; 84484; 85025; 85027; 85379; 93005; 93041; 93268; 94640; 94760; 96374; 96375; 99285; G0378; J0696; J1650; J1817; J1940; J2930; A9270-GY

== ENCOUNTER 2022-03-28 11:06 | Observation (INO) | payer MEDICARE ==
[2022-03-28 12:49] LABS: Absolute Neutrophil Ct (ANC) 7.68 x10^3/uL (1.4-6.9); Basophil (Absolute #) 0.04 x10^3/uL (0-0.4); Eosinophil % 0.2 % (0.00-5.0); Eosinophil (Absolute #) 0.03 x10^3/uL (0-0.5); Hematocrit 41.2 % (35-47); Hemoglobin 13.3 g/dL (12.0-16.0); Lymphocyte (Absolute #) 3.28 x10^3/uL (1.0-4.6); Mean Cell Volume 85.8 fL (78-100); Mean Corpuscular Hemoglobin 27.7 pg (26-32); Mean Corpuscular Hgb Concent. 32.3 g/dL (32-36); Mean Platelet Volume 9.5 fL (7.5-11.0); Monocyte (Absolute #) 0.92 x10^3/uL (0.0-1.3); Monocytes % 7.6 % (0.0-12.0); Neutrophil % 63.4 % (36.0-66.0); Platelet Count 279 x10^3/uL (150-450); Red Cell Distribution Width 14.7 % (11.5-14.0); White Blood Count 12.1 x10^3/uL (4.0-10.5)
[2022-03-28 13:06] LABS: ALBUMIN 3.7 g/dL (3.5-5.0); ANION GAP 12.9 MEQ/L (5-15); BILIRUBIN,TOTAL 1.1 mg/dL (0.2-1.3); Calcium 9.3 mg/dL (8.4-10.2); Creatinine 1 1.12 mg/dL (0.52-1.04); EST GLOMERULAR FILTRATION RATE 51.3 ML/MIN; Potassium 3.9 mmol/L (3.5-5.1); Total Protein 6.9 g/dL (6.3-8.2)
[2022-03-28 13:24] LABS: INFLUENZA A NEGATIVE (NEGATIVE); INFLUENZA B NEGATIVE (NEGATIVE); RESPIRATORY SYNCTIAL VIRUS NEGATIVE (Negative); SARS-CoV-2 Xpert Express NEGATIVE (NEGATIVE)
[2022-03-28] MEDS: solu-MEDROL 40 MG, Sterile H2O 10 ml 1 ML IV SCH ×4 (14:29→22:45)
[2022-03-28] MEDS: Lactated Ringers 1,000 ML IV SCH (14:35)
--- NOTE | 2022-03-28 14:35 | XRAY ---
Indication: COPD. Comparison: March 17, 2022. Portable chest remains hyperinflated with chronic lung markings. No focal infiltrate, consolidation, or large effusion. Heart not enlarged. No new/acute findings.
[2022-03-28] MEDS: Levofloxacin 500MG/100ML D5W 500 MG/100 ML BAG IV SCH (14:36)
--- NOTE | 2022-03-28 14:37 | XRAY ---
Indication: Pain. Comparison: None KUB nonacute and nonobstructed with minimal scattered colonic fecal debris, cholecystectomy clips, and multiple splenic calcified granulomas. Arteriosclerotic aorta with CT proven distal AAA. Osseous structures intact with osteopenia, degenerative changes, left innominate orthopedic screws, and partially visualized left hip orthopedic fixation hardware. Impression: Nonacute KUB with chronic features.
[2022-03-28] MEDS: DUONEB 0.5-3 MG/3 ml Neb IH SCH ×2 (15:30→18:51)
[2022-03-28 16:20] LABS: Bacteria RARE /HPF (NEGATIVE); Epithelial Cells RARE /HPF (FEW)
--- NOTE | 2022-03-28 16:45 | XRAY ---
Indication: Upper abdomen pain. Constipation 3 days. Multiple contiguous axial images obtained through the abdomen and pelvis using 80 cc Isovue 370 contrast. Enteric contrast also used. Comparison: May 23, 2021. Lung bases again demonstrates scattered fibrosis/scarring without focal infiltrate or effusion. Heart not enlarged. Stable small hiatal hernia. Contrasted stomach and bowel loops appear nonobstructed. Mild fecal debris in the ascending and transverse colon. Appendectomy, cholecystectomy, and hysterectomy reported. No free fluid/air. New abnormal distention of the intra-and extrahepatic biliary tree with common bile duct up to 12 mm diameter. No choledochal calculus. Stable small left renal cyst and multiple splenic calcified granulomas. Remaining liver, pancreas, spleen, adrenal glands, kidneys, ureters, and bladder are unremarkable. Again heavy scattered vascular calcifications with minimally enlarging 4.2 x 4.2 cm distal AAA, previously 4.0 x 3.7 cm. No pathologic retroperitoneal lymphadenopathy. Osseous structures intact again with osteopenia, mild degenerative changes, and old fractures of the left iliac crest/proximal left femur with intact orthopedic hardware. Impression: 1. New finding abnormal distention of the entire biliary tree. No obvious choledochal stone. ERCP or MRCP may yield further information. 2. Again scattered arteriosclerotic disease with minimally enlarging distal AAA. 3. Stable chronic findings including small hiatal hernia, small left renal cyst, chronic bony findings, and old granulomatous disease.
[2022-03-28 16:48] LABS: Appearance CLEAR (CLEAR); Bilirubin NEGATIVE (NEGATIVE); Glucose >=1000 mg/dL (NEGATIVE); Ketones NEGATIVE (NEGATIVE); RBC TRACE-INTACT Ery/ul (0-5); Specific Gravity 1.015 (1.005-1.025)
[2022-03-28 16:49] LABS: Nitrite NEGATIVE (NEGATIVE); Ph 7.5 (5-6); Protein,Urine Dip TRACE (Negative); Urine Cultured Indicated? YES; Urobilinogen 2 mg/dL (0-1)
[2022-03-28 16:51] LABS: Dipstick done @ ? MAIN LAB
[2022-03-28] MEDS ORDERED: MORPHINE SULFATE 10 MG/ML IV PRN (17:06)
[2022-03-28] MEDS ORDERED: ENTRESTO 49 MG-51 MG TABLET PO ONE (22:00)
[2022-03-28] MEDS ORDERED: LIPITOR 40MG PO ONE (22:00)
[2022-03-28] MEDS ORDERED: Coreg PO ONE (22:00)
[2022-03-28] MEDS ORDERED: ZOCOR 20MG ONE (22:41)
[2022-03-28] MEDS: DESYREL 50 MG PO SCH (22:46)
[2022-03-29] MEDS: Lactated Ringers 1,000 ML IV SCH ×2 (03:30→10:18)
[2022-03-29 05:45] LABS: Absolute Neutrophil Ct (ANC) 6.97 x10^3/uL (1.4-6.9); Basophil (Absolute #) 0.01 x10^3/uL (0-0.4); Eosinophil (Absolute #) 0 x10^3/uL (0-0.5); Hematocrit 41.1 % (35-47); Hemoglobin 13.4 g/dL (12.0-16.0); Lymphocytes % 8.9 % (24.0-44.0); Mean Corpuscular Hemoglobin 27.4 pg (26-32); Mean Corpuscular Hgb Concent. 32.6 g/dL (32-36); Mean Platelet Volume 9.8 fL (7.5-11.0); Monocyte (Absolute #) 0.09 x10^3/uL (0.0-1.3); Monocytes % 1.1 % (0.0-12.0); Platelet Count 281 x10^3/uL (150-450); Red Blood Count 4.89 x10^6/uL (4.1-5.4); Red Cell Distribution Width 14.9 % (11.5-14.0); White Blood Count 7.8 x10^3/uL (4.0-10.5)
[2022-03-29] MEDS: solu-MEDROL 40 MG, Sterile H2O 10 ml 1 ML IV SCH ×6 (05:57→21:23)
[2022-03-29 06:09] LABS: ALBUMIN 3.5 g/dL (3.5-5.0); ALKALINE PHOSPHATASE 258 U/L (38-126); ANION GAP 12.7 MEQ/L (5-15); BLOOD UREA NITROGEN 19 mg/dL (7-17); CHLORIDE 99 mmol/L (98-107); Calcium 9.1 mg/dL (8.4-10.2); Carbon Dioxide 26 mmol/L (22-30); Creatinine 1 0.97 mg/dL (0.52-1.04); EST GLOMERULAR FILTRATION RATE > 60.0 ML/MIN; Glucose 144 mg/dL (74-106); Potassium 4.8 mmol/L (3.5-5.1); SGOT/AST 382 U/L (14-36); SGPT/ALT 588 U/L (0-35); SODIUM 133 mmol/L (137-145); Total Protein 6.3 g/dL (6.3-8.2)
[2022-03-29] MEDS: DUONEB 0.5-3 MG/3 ml Neb IH SCH ×4 (06:36→18:42)
[2022-03-29] MEDS ORDERED: Ventolin Hfa MDI IH PRN (07:21)
[2022-03-29] MEDS ORDERED: ULTRAM 50 MG PO PRN (07:21)
[2022-03-29] MEDS ORDERED: VENTOLIN COMMON CANISTER IH PRN (07:29)
[2022-03-29] MEDS ORDERED: MEDICATION INTERVENTION MC SCH ×2 (07:45)
--- NOTE | 2022-03-29 08:57 | PCM.NOTE ---
Date and Time: 03/29/22 0854 Subjective Assessment: patient reports her breathing is better, her oxygen was off all night and states her sats are ok and she is breathing better. denies abd pain today, no nausea or vomiting. Objective Exam General Appearance: no apparent distress Neurologic Exam: alert, oriented x 3 Skin Exam: normal color, warm, dry Respiratory Exam: diminished breath sounds, prolonged expirations Cardiovascular Exam: regular rate/rhythm, normal heart sounds Gastrointestinal/Abdomen Exam: soft, normal bowel sounds, No tenderness, No distention, No mass, No guarding, No rebound Extremity Exam: normal inspection, normal range of motion OBJECTIVE DATA Vital Signs: Vital Signs - 24 hr Temp Pulse Resp BP Pulse Ox 03/29/22 07:44 97.5 F 72 19 151/94 94 L 03/29/22 06:39 89 18 94 L 03/29/22 04:00 97.6 F 72 18 137/74 98 03/28/22 23:40 97.5 F 75 20 167/84 95 03/28/22 19:53 97.2 F 74 18 188/87 96 03/28/22 18:53 73 16 94 L 03/28/22 16:03 97.5 F 67 19 167/79 96 03/28/22 16:00 97.1 F 78 16 183/98 97 03/28/22 15:36 73 16 96 Pain Assessment - Last Documented Pain Intensity 0 Intake and Output: Intake & Output 03/26/22 03/27/22 03/28/22 03/29/22 11:59 11:59 11:59 11:59 Intake Total 1281 Balance 1281 Weight 76.2 kg Lab Results: Lab Results-Last 24 Hours 03/28/22 03/28/22 03/28/22 Range/Units 12:40 12:40 12:40 WBC 12.1 H (4.0-10.5) x10^3/uL RBC 4.80 (4.1-5.4) x10^6/uL Hgb 13.3 (12.0-16.0) g/dL Hct 41.2 (35-47) % MCV 85.8 (78-100) fL MCH 27.7 (26-32) pg MCHC 32.3 (32-36) g/dL RDW 14.7 H (11.5-14.0) % Plt Count 279 (150-450) x10^3/uL MPV 9.5 (7.5-11.0) fL Gran % 63.4 (36.0-66.0) % Immature Gran % (Auto) 1.5 H (0.00-0.4) % Nucleat RBC Rel Count 0.0 (0.00-0.1) % Eos # (Auto) 0.03 (0-0.5) x10^3/uL Immature Gran # (Auto) 0.18 H (0.00-0.03) x10^3u/L Absolute Lymphs (auto) 3.28 (1.0-4.6) x10^3/uL Absolute Monos (auto) 0.92 (0.0-1.3) x10^3/uL Absolute Nucleated RBC 0.00 (0.00-0.01) x10^3u/L Lymphocytes % 27.0 (24.0-44.0) % Monocytes % 7.6 (0.0-12.0) % Eosinophils % 0.2 (0.00-5.0) % Basophils % 0.3 (0.0-0.4) % Absolute Granulocytes 7.68 H (1.4-6.9) x10^3/uL Basophils # 0.04 (0-0.4) x10^3/uL Sodium 135 L (137-145) mmol/L Potassium 3.9 (3.5-5.1) mmol/L Chloride 99 (98-107) mmol/L Carbon Dioxide 26 (22-30) mmol/L Anion Gap 12.9 (5-15) MEQ/L BUN 20 H (7-17) mg/dL Creatinine 1.12 H (0.52-1.04) mg/dL Estimated GFR 51.3 ML/MIN Glucose 118 H (74-106) mg/dL Calcium 9.3 (8.4-10.2) mg/dL Total Bilirubin 1.10 (0.2-1.3) mg/dL AST 283 H (14-36) U/L ALT 284 H (0-35) U/L Alkaline Phosphatase 216 H (38-126) U/L Serum Total Protein 6.9 (6.3-8.2) g/dL Albumin 3.7 (3.5-5.0) g/dL Amylase 80 (30-110) U/L Lipase 82 (23-300) U/L Urinalys Dipstick Clnc Urine Color (YELLOW) Urine Appearance (CLEAR) Urine pH (5-6) Ur Specific [place] (1.005-1.025) POC Urine Protein Conf (Negative) Urine Ketones (NEGATIVE) Urine Nitrite (NEGATIVE) Urine Bilirubin (NEGATIVE) Urine Urobilinogen (0-1) mg/dL Urine Leukocytes (NEGATIVE) Urine WBC (Auto) (0-5) /HPF Urine RBC (Auto) (0-2) /HPF U Epithel Cells (Auto) (FEW) /HPF Urine Bacteria (Auto) (NEGATIVE) /HPF Urine RBC (0-5) Jose/ul Ur Culture Indicated? Urine Glucose (NEGATIVE) mg/dL Influenza Type A Ag NEGATIVE (NEGATIVE) Influenza Type B Ag NEGATIVE (NEGATIVE) RSV (PCR) NEGATIVE (Negative) SARS-CoV-2 (PCR) NEGATIVE (NEGATIVE) 03/28/22 03/29/22 03/29/22 Range/Units 15:54 04:20 04:20 WBC 7.8 (4.0-10.5) x10^3/uL RBC 4.89 (4.1-5.4) x10^6/uL Hgb 13.4 (12.0-16.0) g/dL Hct 41.1 (35-47) % MCV 84.0 (78-100) fL MCH 27.4 (26-32) pg MCHC 32.6 (32-36) g/dL RDW 14.9 H (11.5-14.0) % Plt Count 281 (150-450) x10^3/uL MPV 9.8 (7.5-11.0) fL Gran % 89.0 H (36.0-66.0) % Immature Gran % (Auto) 0.9 H (0.00-0.4) % Nucleat RBC Rel Count 0.0 (0.00-0.1) % Eos # (Auto) 0 (0-0.5) x10^3/uL Immature Gran # (Auto) 0.07 H (0.00-0.03) x10^3u/L Absolute Lymphs (auto) 0.70 L (1.0-4.6) x10^3/uL Absolute Monos (auto) 0.09 (0.0-1.3) x10^3/uL Absolute Nucleated RBC 0.00 (0.00-0.01) x10^3u/L Lymphocytes % 8.9 L (24.0-44.0) % Monocytes % 1.1 (0.0-12.0) % Eosinophils % 0.0 (0.00-5.0) % Basophils % 0.1 (0.0-0.4) % Absolute Granulocytes 6.97 H (1.4-6.9) x10^3/uL Basophils # 0.01 (0-0.4) x10^3/uL Sodium 133 L (137-145) mmol/L Potassium 4.8 D (3.5-5.1) mmol/L Chloride 99 (98-107) mmol/L Carbon Dioxide 26 (22-30) mmol/L Anion Gap 12.7 (5-15) MEQ/L BUN 19 H (7-17) mg/dL Creatinine 0.97 (0.52-1.04) mg/dL Estimated GFR > 60.0 ML/MIN Glucose 144 H (74-106) mg/dL Calcium 9.1 (8.4-10.2) mg/dL Total Bilirubin 1.50 H (0.2-1.3) mg/dL AST 382 H (14-36) U/L ALT 588 H (0-35) U/L Alkaline Phosphatase 258 H (38-126) U/L Serum Total Protein 6.3 (6.3-8.2) g/dL Albumin 3.5 (3.5-5.0) g/dL Amylase (30-110) U/L Lipase (23-300) U/L Urinalys Dipstick Clnc MAIN LAB Urine Color YELLOW (YELLOW) Urine Appearance CLEAR (CLEAR) Urine pH 7.5 (5-6) Ur Specific [place] 1.015 (1.005-1.025) POC Urine Protein Conf TRACE (Negative) Urine Ketones NEGATIVE (NEGATIVE) Urine Nitrite NEGATIVE (NEGATIVE) Urine Bilirubin NEGATIVE (NEGATIVE) Urine Urobilinogen 2 (0-1) mg/dL Urine Leukocytes NEGATIVE (NEGATIVE) Urine WBC (Auto) 3-5 (0-5) /HPF Urine RBC (Auto) 3-5 (0-2) /HPF U Epithel Cells (Auto) RARE (FEW) /HPF Urine Bacteria (Auto) RARE (NEGATIVE) /HPF Urine RBC TRACE-INTACT (0-5) Jose/ul Ur Culture Indicated? YES Urine Glucose >=1000 (NEGATIVE) mg/dL Influenza Type A Ag (NEGATIVE) Influenza Type B Ag (NEGATIVE) RSV (PCR) (Negative) SARS-CoV-2 (PCR) (NEGATIVE) Radiology Exams: Radiology Procedures Category Date Time Status ABDOMEN AND PELVIS W CONTRAST [CT] Urgent Exams 03/28/22 16:25 Completed CHEST 1 VIEW (PORTABLE) Urgent Exams 03/28/22 12:30 Completed KUB Urgent Exams 03/28/22 Completed MRI ABD W/O CONTRAST [MRI] Urgent Exams 03/29/22 08:00 Taken Assessment/Plan (1) Acute exacerbation of chronic obstructive pulmonary disease (COPD) Current Visit: No Status: Acute Assessment & Plan: continue levaquin and solu medrol, appears quite stable and not requiring oxygen. home tomorrow if no intervention planned on biliary distension Code(s): J44.1 - CHRONIC OBSTRUCTIVE PULMONARY DISEASE W (ACUTE) EXACERBATION (2) Dilation of biliary tract Current Visit: Yes Status: Acute Assessment & Plan: MRCP and surgical consult pending, patient currently is asymptomatic. if she remains pain free and surgery recommends no immediate intervention might be able to schedule for outpatient GI consult for consideration of ercp if pain does not recur with po intake. Code(s): K83.8 - OTHER SPECIFIED DISEASES OF BILIARY TRACT
--- NOTE | 2022-03-29 09:03 | XRAY ---
Indication: Abnormal biliary distention on CT abdomen/pelvis one day earlier. 2-dimensional MRCP performed. Comparison: None Study is limited by respiration artifact. Patient unable to hold breath due to known COPD. There has been cholecystectomy. Visualized biliary tree appears normal in course and caliber without focal stricture, obstruction, or filling defect. Common bile duct diameter is 4 mm, normal. Pancreatic duct is not abnormally distended. No free fluid/ascites. Left upper kidney demonstrates a 1.4 cm cyst. Arteriosclerotic abdominal aorta with incompletely visualized 4.2 x 3.8 cm distal AAA. Remaining visualized liver, pancreas, spleen, adrenal glands, kidneys, and IVC are unremarkable. No abnormal bone marrow signal. Impression: 1. Limited MRCP exam as detailed. 2. Visualized MRCP is negative. If there remains further clinical concern, conventional ERCP may yield further information. 3. Incidental left renal cyst and distal AAA further detailed on CT abdomen/pelvis one day earlier.
[2022-03-29] MEDS ORDERED: NON-FORMULARY ITEM (Fluticasone/Umeclidin/Vilanter [Trelegy Ellipta 200-62.5-25] 1 EACH Bl IH SCH (10:00)
[2022-03-29] MEDS ORDERED: NON-FORMULARY ITEM (Dapagliflozin Propanediol [Farxiga] 10 MG Tablet) PO SCH (10:00)
[2022-03-29] MEDS ORDERED: Aldactone 25 MG PO SCH (10:00)
[2022-03-29] MEDS ORDERED: ECOTRIN 81 MG PO SCH (10:00)
[2022-03-29] MEDS ORDERED: LASIX 20 MG PO SCH (10:00)
[2022-03-29] MEDS: COREG 12.5 MG PO SCH ×2 (10:18→21:20)
[2022-03-29] MEDS: Levofloxacin 500MG/100ML D5W 500 MG/100 ML BAG IV SCH (10:18)
[2022-03-29] MEDS: ENTRESTO 49 MG-51 MG TABLET PO SCH ×2 (10:18→21:21)
[2022-03-29] MEDS: DESYREL 50 MG PO SCH (21:21)
[2022-03-29] MEDS ORDERED: LIPITOR 40MG PO SCH (22:00)
[2022-03-29] MEDS ORDERED: Coreg PO ONE (22:00)
[2022-03-29] MEDS ORDERED: ZOCOR 20MG PO SCH (22:00)
[2022-03-29] MEDS ORDERED: ZOCOR 20MG PO ONE (22:37)
[2022-03-30] MEDS: Lactated Ringers 1,000 ML IV SCH (04:14)
[2022-03-30 05:19] LABS: Basophil (Absolute #) 0.02 x10^3/uL (0-0.4); Eosinophil (Absolute #) 0 x10^3/uL (0-0.5); Hematocrit 39.5 % (35-47); Hemoglobin 12.9 g/dL (12.0-16.0); Lymphocyte (Absolute #) 0.65 x10^3/uL (1.0-4.6); Lymphocytes % 5.9 % (24.0-44.0); Mean Cell Volume 84.8 fL (78-100); Mean Corpuscular Hemoglobin 27.7 pg (26-32); Mean Corpuscular Hgb Concent. 32.7 g/dL (32-36); Mean Platelet Volume 9.8 fL (7.5-11.0); Monocyte (Absolute #) 0.37 x10^3/uL (0.0-1.3); Monocytes % 3.4 % (0.0-12.0); Neutrophil % 89.5 % (36.0-66.0); Platelet Count 272 x10^3/uL (150-450); Red Blood Count 4.66 x10^6/uL (4.1-5.4); Red Cell Distribution Width 15.1 % (11.5-14.0)
[2022-03-30 05:40] LABS: ALBUMIN 3.5 g/dL (3.5-5.0); ANION GAP 12.8 MEQ/L (5-15); BILIRUBIN,TOTAL 0.8 mg/dL (0.2-1.3); Calcium 8.8 mg/dL (8.4-10.2); EST GLOMERULAR FILTRATION RATE 58.4 ML/MIN; MAGNESIUM 2.1 mg/dL (1.6-2.3); Potassium 4.1 mmol/L (3.5-5.1); Total Protein 6.4 g/dL (6.3-8.2)
[2022-03-30] MEDS ORDERED: solu-MEDROL ONE (05:57)
[2022-03-30] MEDS: solu-MEDROL 40 MG, Sterile H2O 10 ml 1 ML IV SCH ×2 (06:02)
[2022-03-30] MEDS: DUONEB 0.5-3 MG/3 ml Neb IH SCH (06:53)
--- NOTE | 2022-03-30 08:13 | PCM.DS ---
Discharge Summary Date of Admission: 03/28/22 12:11 Admitting Physician: DANY GUTHRIE Consults: Consults on Case 03/28/22 17:04 Consult Surgery ROUTINE Primary Care Provider: DANY GUTHRIE Allergies Allergies No Known Drug Allergies Allergy (Verified 03/17/22 09:35) Hospital Summary - Hospital Course Hospital Course: patient was directe admitted by Dr Ardon with acute exacerbation of copd, failure of outpatient tx and dilation of biliary tree. MRCP was normal, distension resolved. mild elevation of LFTs noted, no intervention by surgery. she has no gi complaints, she is on room air and shortness of breath and wheezing are resolved and she is feeling well at the time of discharge. - Vitals & Intake/Output Vital Signs: Vital Signs Temperature 98.0 F 03/30/22 04:00 Pulse Rate 84 03/30/22 06:57 Respiratory Rate 18 03/30/22 06:57 Blood Pressure 151/82 03/30/22 04:00 O2 Sat by Pulse Oximetry 94 L 03/30/22 06:57 Intake & Output: Intake & Output 03/27/22 03/28/22 03/29/22 03/30/22 11:59 11:59 11:59 11:59 Intake Total 1281 2377 Balance 1281 2377 Weight 76.2 kg - Lab Result Diagrams: 03/30/22 04:20 03/30/22 04:20 Lab Results-Last 24 Hrs: Lab Results-Last 24 Hours 03/30/22 03/30/22 Range/Units 04:20 04:20 WBC 11.0 H (4.0-10.5) x10^3/uL RBC 4.66 (4.1-5.4) x10^6/uL Hgb 12.9 (12.0-16.0) g/dL Hct 39.5 (35-47) % MCV 84.8 (78-100) fL MCH 27.7 (26-32) pg MCHC 32.7 (32-36) g/dL RDW 15.1 H (11.5-14.0) % Plt Count 272 (150-450) x10^3/uL MPV 9.8 (7.5-11.0) fL Gran % 89.5 H (36.0-66.0) % Immature Gran % (Auto) 1.0 H (0.00-0.4) % Nucleat RBC Rel Count 0.0 (0.00-0.1) % Eos # (Auto) 0 (0-0.5) x10^3/uL Immature Gran # (Auto) 0.11 H (0.00-0.03) x10^3u/L Absolute Lymphs (auto) 0.65 L (1.0-4.6) x10^3/uL Absolute Monos (auto) 0.37 (0.0-1.3) x10^3/uL Absolute Nucleated RBC 0.00 (0.00-0.01) x10^3u/L Lymphocytes % 5.9 L (24.0-44.0) % Monocytes % 3.4 (0.0-12.0) % Eosinophils % 0.0 (0.00-5.0) % Basophils % 0.2 (0.0-0.4) % Absolute Granulocytes 9.80 H (1.4-6.9) x10^3/uL Basophils # 0.02 (0-0.4) x10^3/uL Sodium 133 L (137-145) mmol/L Potassium 4.1 (3.5-5.1) mmol/L Chloride 100 (98-107) mmol/L Carbon Dioxide 25 (22-30) mmol/L Anion Gap 12.8 (5-15) MEQ/L BUN 26 H (7-17) mg/dL Creatinine 1.00 (0.52-1.04) mg/dL Estimated GFR 58.4 ML/MIN Glucose 197 H (74-106) mg/dL Calcium 8.8 (8.4-10.2) mg/dL Magnesium 2.1 (1.6-2.3) mg/dL Total Bilirubin 0.80 (0.2-1.3) mg/dL AST 86 H (14-36) U/L ALT 348 H (0-35) U/L Alkaline Phosphatase 194 H (38-126) U/L Serum Total Protein 6.4 (6.3-8.2) g/dL Albumin 3.5 (3.5-5.0) g/dL Micro Results-Entire Visit: Microbiology 03/28/22 15:54 Urine Culture - Preliminary Clean Catch Midstream No growth. - Radiology Exams Ordered Rad Exams-Entire Visit: Radiology Procedures Category Date Time Status ABDOMEN AND PELVIS W CONTRAST [CT] Urgent Exams 03/28/22 16:25 Completed CHEST 1 VIEW (PORTABLE) Urgent Exams 03/28/22 12:30 Completed MRI ABD W/O CONTRAST [MRI] Urgent Exams 03/29/22 08:00 Completed - Procedures and Test Procedures and Tests throughout Hospitalization: Therapy Orders & Screens 03/28/22 15:37 Oxygen NASAL CANNULA 2 lpm Comment: Diagnosis: COPD EXACERBATION 03/28/22 16:17 RT Screen per Nursing Assess ONCE Comment: Protocol Order Physician Instructions: Greater than 3 points order RT Admission Screen Reason For Exam: Triggered on Admission Diagnosis: COPD EXACERBATION Diagnosis: COPD EXACERBATION Pneumonia: No Home O2: Yes Asthma: Yes CHF: Yes Home CPAP/BIPAP: Yes: doesn't wear Home Nebs/MDI: Yes Total Points: 22 Smoking Cessation Education ONCE Comment: Diagnosis: COPD EXACERBATION Smoking Status: Current every day smoker How long have you smoked: "50 years" Have you smoked in the past 12 months: Yes Approximately how many cigarettes per day: 10 Do you dip or chew tobacco: No 03/29/22 07:00 Respiratory Therapy Assessment DAILY Comment: Diagnosis: COPD EXACERBATION Discharge Exam General Appearance: no apparent distress Neurologic Exam: alert, oriented x 3 Respiratory Exam: diminished breath sounds, prolonged expirations, No accessory muscle use, No rhonchi, No wheezing Cardiovascular Exam: regular rate/rhythm, normal heart sounds Gastrointestinal/Abdomen Exam: soft, No tenderness, No mass Extremity Exam: normal inspection, normal range of motion Skin Exam: normal color, warm, dry Final Diagnosis/Problem List - Final Discharge Diagnosis/Problem (1) Acute exacerbation of chronic obstructive pulmonary disease (COPD) Current Visit: No Status: Acute Code(s): J44.1 - CHRONIC OBSTRUCTIVE PULMONARY DISEASE W (ACUTE) EXACERBATION (2) Dilation of biliary tract Current Visit: Yes Status: Acute Code(s): K83.8 - OTHER SPECIFIED DISEASES OF BILIARY TRACT - Discharge Disposition: Home, Self-Care Condition: Stable Prescriptions: New Prednisone 20 mg [Deltasone 20 mg] 20 mg PO UD #18 tablet Levofloxacin [Levofloxacin 500 MG Tablet] 500 mg PO QAM #7 tablet Continue Albuterol 8 gm Mdi Hfa [Ventolin Hfa MDI] 2 puffs IH Q4H PRN PRN PRN Reason: Shortness Of Breath Atorvastatin Calcium [Lipitor] 40 mg PO HS Carvedilol 12.5 mg [Coreg 12.5 mg] 25 mg PO BID Furosemide 40 mg [Lasix 40 MG] 20 mg PO DAILY Trazodone HCl 50 mg [Desyrel 50 mg] 50 mg PO HS Tramadol HCl 50 mg [Ultram 50 mg] 50 mg PO Q6HPRN PRN PRN Reason: Moderate To Severe Pain Spironolactone 25 mg [Aldactone 25 MG] 25 mg PO DAILY Dapagliflozin Propanediol [Farxiga] 10 mg PO DAILY Fluticasone/Umeclidin/Vilanter [Trelegy Ellipta 200-62.5-25] 1 each IH DAILY Ipratropium/Albuterol Sulfate [Iprat-Albut 0.5-3(2.5) mg/3 ml] 3 ml IH Q4H PRN PRN PRN Reason: Shortness Of Breath/Wheezing Aspirin 81 gm Chew [Baby Aspirin 81 mg Chew] 81 mg PO DAILY #0 Sacubitril/Valsartan [Entresto 49 mg-51 mg Tablet] 1 tablet PO BID Follow up with: JANEE LAGUNA [ACTIVE STAFF] - 1 Week () DANY GUTHRIE [Primary Care Provider] - 1 Week
[2022-03-30 08:31] VITALS: BP 180/88; PULSE 75; O2SAT 96
--- NOTE | 2022-03-30 08:46 | CONS ---
CONSULT DATE: 03/29/2022 REASON FOR CONSULT: Elevated liver functions. HISTORY: A 67-year-old female she is known to myself. She had gallbladder some years ago. She had a bilirubin of 1.1. She has elevated liver enzymes which had been abnormal for a little while. She has had some cardiac medicines changes. She did have a hand surgery a few months ago and she did have a general anesthetic. She is alert and oriented. Her chart is reviewed. Her bilirubin is only 1. She has had part of a MRCP which was satisfactory. IMPRESSION: I do not think there is a surgical cause here. I think this is either medication change or exposure to something causing a chemical hepatitis. I believe this is a medical problem at this time.
== END 2022-03-30 09:33 | disposition home or self-care (01) ==
LOC: MED SURG 12:11
PROVIDERS: ADMIT Family Medicine; ATTEND Family Medicine
DX: J44.1 Chronic obstructive pulmonary disease with (acute) exacerbation (principal); K83.8 Other specified diseases of biliary tract; I11.0 Hypertensive heart disease with heart failure; I50.9 Heart failure, unspecified; E11.9 Type 2 diabetes mellitus without complications; E87.6 Hypokalemia; I25.2 Old myocardial infarction; R10.9 Unspecified abdominal pain; Z79.899 Other long term (current) drug therapy; Z20.828 Contact with and (suspected) exposure to other viral communicable diseases; Z72.0 Tobacco use
CPT/HCPCS: 0241U; 36415; 71045; 74018; 74177; 74181; 80053; 81015; 82150; 83690; 83735; 85025; 87086; 94640; 94760; G0378; J1956; J2920; A9270-GY

== ENCOUNTER 2022-06-07 18:11 | Emergency (ER) | payer MEDICARE ==
[2022-06-07] MEDS ORDERED: DUONEB 0.5-3 MG/3 ml Neb IH ONE ×2 (18:27)
[2022-06-07] MEDS ORDERED: solu-MEDROL 125 MG, Sterile H2O 10 ml 2 ML IV ONE ×2 (18:32)
[2022-06-07] MEDS ORDERED: BABY ASPIRIN 81 MG CHEW PO ONE (18:33)
[2022-06-07] MEDS ORDERED: Sterile H2O 10 ml IJ ONE (18:47)
[2022-06-07] MEDS ORDERED: solu-MEDROL ONE (18:47)
[2022-06-07] MEDS ORDERED: BABY ASPIRIN 81 MG CHEW ONE (18:47)
[2022-06-07] MEDS ORDERED: NITRO-BID 2% UD PACKETS ONE (18:56)
[2022-06-07 18:59] LABS: A-aADO2 77; ABG HEMOGLOBIN 13.5; ABG POTASSIUM 4.6 (3.5-5.1); ABG SITE LEFT BRACHIAL; ARTERIAL BLD GAS O2 SATURATION 97.2 % (95-100); ARTERIAL BLOOD GAS BASE EXCESS 3.7 (-2.0-2.0); ARTERIAL BLOOD GAS FIO2 28 %; ARTERIAL BLOOD GAS PCO2 39 mmHg (35-45); ARTERIAL BLOOD GAS PO2 74 mmHg (75-100); ARTERIAL BLOOD GAS pH 7.46 (7.35-7.45); CARBOXYHEMOGLOBIN 3.2 % THgb (0.0-6.9); HCO3- 27.7 (22-28); HGB O2 SAT 93.2 g/dF (94-100); Lactic Acid 0.9 (0.4-2.0); Methhemoglobin 0.8 % (1.4-1.5)
[2022-06-07 19:01] LABS: Absolute Neutrophil Ct (ANC) 7.93 x10^3/uL (1.4-6.9); Basophil (Absolute #) 0.03 x10^3/uL (0-0.4); Eosinophil % 2.3 % (0.00-5.0); Eosinophil (Absolute #) 0.22 x10^3/uL (0-0.5); Hematocrit 41.3 % (35-47); Hemoglobin 13.1 g/dL (12.0-16.0); Lymphocyte (Absolute #) 0.97 x10^3/uL (1.0-4.6); Lymphocytes % 10.2 % (24.0-44.0); Mean Corpuscular Hemoglobin 28.5 pg (26-32); Mean Corpuscular Hgb Concent. 31.7 g/dL (32-36); Monocyte (Absolute #) 0.34 x10^3/uL (0.0-1.3); Monocytes % 3.6 % (0.0-12.0); Neutrophil % 83.2 % (36.0-66.0); Platelet Count 190 x10^3/uL (150-450); Red Blood Count 4.59 x10^6/uL (4.1-5.4); White Blood Count 9.5 x10^3/uL (4.0-10.5)
[2022-06-07] MEDS ORDERED: NITRO-BID 2% UD PACKETS TOP ONE (19:01)
--- NOTE | 2022-06-07 19:01 | ERPHSYRPT ---
- History of Present Illness Time Seen by Provider: 06/07/22 18:24 Source: patient Exam Limitations: no limitations Patient Subjective Stated Complaint: SOB Triage Nursing Assessment: Patient ambulated back to ED and transferred self to bed. Patient A+O X 3. Patient's skin pink, warm and dry. Patient complains of SOB and chest pain that started two hours prior to arrival. Patient states she usually wears home O2 but didn't bring it with her today. Patient complains of chest pain 5/10. Patient has productive cough with thick yellow sputum. Lungs noted to be wheezy A/P perla. Physician History: 67-year-old female with history of chronic respiratory failure on 2 L oxygen, COPD, tobacco abuse, congestive heart failure with pacemaker/defibrillator placement, hypertension, hyperlipidemia, diabetes mellitus presented in the ER with 2 hours history of sudden onset chest tightness pressure with increasing shortness of breath. Patient also reports having cough productive of yellow- green sputum for the last couple of days with progressive worsening. Patient rates 5-04/2010 intensity continuous central pain without any significant aggravating or relieving factors. Patient oxygen saturation is in 80s on presentation but did not have O2 on which she is usually. She is wheezing bilaterally with few crackles. EKG showed some questionable ST elevation in anterior leads. Also reports pacemaker firing x1 with palpitations. Timing/Duration: hour(s) (2), constant, sudden, worse Activities at Onset: rest Severity of Dyspnea-Max: severe Severity of Dyspnea-Current: moderate Possible Cause: occasional episodes Modifying Factors: Worsens With: activity, coughing Associated Symptoms: cough, chest pain/discomfort, heaviness, productive cough, tightness Allergies/Adverse Reactions: No Known Drug Allergies Allergy (Verified 06/07/22 18:16) Home Medications: Albuterol 8 gm Mdi Hfa [Ventolin Hfa MDI] 2 puffs IH Q4H PRN PRN 08/02/15 [History] Atorvastatin Calcium [Lipitor] 40 mg PO HS 12/06/18 [History] Carvedilol 12.5 mg [Coreg 12.5 mg] 25 mg PO BID 11/12/20 [History] Furosemide 40 mg [Lasix 40 MG] 20 mg PO DAILY 05/23/21 [History] Dapagliflozin Propanediol [Farxiga] 10 mg PO DAILY 12/07/21 [History] Fluticasone/Umeclidin/Vilanter [Trelegy Ellipta 200-62.5-25] 1 each IH DAILY 12/07/21 [History] Spironolactone 25 mg [Aldactone 25 MG] 25 mg PO DAILY 12/07/21 [History] Tramadol HCl 50 mg [Ultram 50 mg] 50 mg PO Q6HPRN PRN 12/07/21 [History] Trazodone HCl 50 mg [Desyrel 50 mg] 50 mg PO HS 12/07/21 [History] Ipratropium/Albuterol Sulfate [Iprat-Albut 0.5-3(2.5) mg/3 ml] 3 ml IH Q4H PRN PRN 12/11/21 [History] Sacubitril/Valsartan [Entresto 49 mg-51 mg Tablet] 1 tablet PO BID 03/17/22 [History] Hx Tetanus, Diphtheria Vaccination/Date Given: No Hx Influenza Vaccination/Date Given: No Hx Pneumococcal Vaccination/Date Given: No Immunizations Up to Date: Yes Travel Risk - International Travel Have you traveled outside of the country in past 3 weeks: No - Coronavirus Screening Are you exhibiting any of the following symptoms?: Yes Symptoms: Cough: New Onset, Shortness of Breath - Vaccine Status Have you recieved a Covid-19 vaccination: Yes [employer]: Moderna - Vaccination Dates Date of 2cond Vaccination (if applicable): 03/21/21 - Review of Systems Constitutional: No Symptoms Eyes: No Symptoms Ears, Nose, & Throat: No Symptoms Respiratory: Cough, Dyspnea, Dyspnea on Exertion (ROBLES), Wheezing Cardiac: Chest Pain, Palpitations Abdominal/Gastrointestinal: No Symptoms Genitourinary Symptoms: No Symptoms Musculoskeletal: No Symptoms Skin: No Symptoms Neurological: No Symptoms Psychological: Anxiety Endocrine: No Symptoms Hematologic/Lymphatic: No Symptoms Immunological/Allergic: No Symptoms - Past Medical History Pertinent Past Medical History: Yes Neurological History: Migraines ENT History: No Pertinent History Cardiac History: Congestive Heart Failure, Coronary Artery Disease, High Cholesterol, Hypertension, Myocardial Infarction (CT) Respiratory History: Asthma, Bronchitis, CHF, COPD, Emphysema, Pneumonia, Other Endocrine Medical History: Diabetes Type II Musculoskeletal History: Arthritis GI Medical History: GERD, Gallbladder Disease History: No Pertinent History Psycho-Social History: Anxiety Female Reproductive Disorders: No Pertinent History Other Medical History: 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 - Past Surgical History Past Surgical History: Yes Neuro Surgical History: No Pertinent History Cardiac: No Pertinent History Respiratory: No Pertinent History Gastrointestinal: Cholecystectomy Genitourinary: No Pertinent History Musculoskeletal: Orthopedic Surgery Female Surgical History: Hysterectomy Other Surgical History: right knee replacement, screw in pelvis, misha in left leg - Social History Smoking Status: Current every day smoker How long have you smoked: "50 years" Exposure to second hand smoke: Yes Drug Use: none Patient Lives Alone: Yes Significant Family History: no pertinent family hx - Nursing Vital Signs Nursing Vital Signs: Initial Vital Signs Temperature 96.4 F 06/07/22 18:17 Pulse Rate 101 H 06/07/22 18:17 Respiratory Rate 30 H 06/07/22 18:17 Blood Pressure 177/110 06/07/22 18:17 O2 Sat by Pulse Oximetry 86 L 06/07/22 18:17 Pain Scale Pain Intensity 5 - Physical Exam General Appearance: no apparent distress, alert Eye Exam: PERRL/EOMI Ears, Nose, Throat Exam: hearing grossly normal, normal ENT inspection, normal pharynx Neck Exam: normal inspection, non-tender, supple, full range of motion Respiratory Exam: diminished breath sounds, accessory muscle use, crackles/rales, wheezing Cardiovascular/Chest Exam: normal heart sounds, regular rate/rhythm Abdominal/Gastrointestinal Exam: soft, No tenderness Extremity Exam: non-tender, normal range of motion Neurologic Exam: alert, oriented x 3, cooperative Skin Exam: normal color SpO2 Interpretation: hypoxic, O2 applied SpO2: 97 O2 Delivery: Nasal Cannula Ordered Tests: Medication Summary Discontinued Medications Generic Name Dose Route Start Last Admin Trade Name Freq PRN Reason Stop Dose Admin Albuterol/Ipratropium 3 ml 06/07/22 18:27 06/07/22 18:32 Ipratropium/Albuterol Sulfate 3 Ml Ampul.Neb IH 06/07/22 18:28 3 ml STAT ONE Administration Albuterol/Ipratropium Confirm 06/07/22 18:27 Ipratropium/Albuterol Sulfate 3 Ml Ampul.Neb Administered 06/07/22 18:28 Dose 3 ml IH .STK-MED ONE Aspirin 324 mg 06/07/22 18:33 06/07/22 18:54 Aspirin 81 Mg Tab.Chew PO 06/07/22 18:34 324 mg STAT ONE Administration Aspirin Confirm 06/07/22 18:47 Aspirin 81 Mg Tab.Chew Administered 06/07/22 18:48 Dose 324 mg .ROUTE .STK-MED ONE Methylprednisolone Sodium 0 mg 06/07/22 18:32 06/07/22 18:55 Succinate 125 mg/ Sterile IV 06/07/22 18:33 125 mg Water 2 ml STAT ONE Administration Heparin Sodium (Beef Lung) 5,000 unit 06/07/22 19:35 06/07/22 19:38 Heparin 5000 Unit/0.5 Ml Syringe IV 06/07/22 19:36 5,000 unit STAT ONE Administration Heparin Sodium (Beef Lung) Confirm 06/07/22 19:38 Heparin 5000 Unit/0.5 Ml Syringe Administered 06/07/22 19:39 Dose 5,000 unit .ROUTE .STK-MED ONE Methylprednisolone Sodium Succinate Confirm 06/07/22 18:47 Methylprednis Sod Succ 125 Mg/2 Ml Vial Administered 06/07/22 18:48 Dose 125 mg .ROUTE .STK-MED ONE Nitroglycerin Confirm 06/07/22 18:56 Nitroglycerin 1 Gm Packet Administered 06/07/22 18:57 Dose 1 gm .ROUTE .STK-MED ONE Nitroglycerin 1 gm 06/07/22 19:01 06/07/22 19:02 Nitroglycerin 1 Gm Packet TOP 06/07/22 19:02 1 gm STAT ONE Administration Sterile Water Confirm 06/07/22 18:47 Water For Injection,Sterile 10 Ml Vial Administered 06/07/22 18:48 Dose 10 ml IJ .STK-MED ONE Lab/Rad Data: Laboratory Result Diagrams 06/07/22 18:45 06/07/22 18:45 Laboratory Results 06/07/22 06/07/22 06/07/22 Range/Units 18:52 18:45 18:45 WBC (4.0-10.5) x10^3/uL RBC (4.1-5.4) x10^6/uL Hgb (12.0-16.0) g/dL Hct (35-47) % MCV (78-100) fL MCH (26-32) pg MCHC (32-36) g/dL RDW (11.5-14.0) % Plt Count (150-450) x10^3/uL MPV (7.5-11.0) fL Gran % (36.0-66.0) % Immature Gran % (Auto) (0.00-0.4) % Nucleat RBC Rel Count (0.00-0.1) % Eos # (Auto) (0-0.5) x10^3/uL Immature Gran # (Auto) (0.00-0.03) x10^3u/L Absolute Lymphs (auto) (1.0-4.6) x10^3/uL Absolute Monos (auto) (0.0-1.3) x10^3/uL Absolute Nucleated RBC (0.00-0.01) x10^3u/L Lymphocytes % (24.0-44.0) % Monocytes % (0.0-12.0) % Eosinophils % (0.00-5.0) % Basophils % (0.0-0.4) % Absolute Granulocytes (1.4-6.9) x10^3/uL Basophils # (0-0.4) x10^3/uL Puncture Site LEFT BRACHIAL pCO2 39 (35-45) mmHg pO2 74 L (75-100) mmHg Base Excess 3.7 H (-2.0-2.0) O2 Saturation 93.2 L (94-100) g/dF ABG pH 7.46 H (7.35-7.45) ABG HCO3 27.7 (22-28) ABG O2 Sat (Measured) 97.2 (95-100) % Hiro Test NOT APPLICABLE A-a Gradient 77 a/A Ratio 0.49 Hemoglobin 13.5 Carboxyhemoglobin 3.2 (0.0-6.9) % THgb Methemoglobin 0.8 L (1.4-1.5) % Temperature 37.0 C POC O2 Flow Rate 28 % Sodium 137 (137-145) mmol/L Potassium 4.6 4.5 (3.5-5.1) mmol/L Chloride 103 (98-107) mmol/L Carbon Dioxide 25 (22-30) mmol/L Anion Gap 13.2 (5-15) MEQ/L BUN 20 H (7-17) mg/dL Creatinine 1.23 H (0.52-1.04) mg/dL Estimated GFR 46.0 ML/MIN Glucose 116 H (74-106) mg/dL Lactic Acid 0.9 (0.4-2.0) Calcium 9.1 (8.4-10.2) mg/dL Magnesium 2.0 (1.6-2.3) mg/dL Total Bilirubin 0.40 (0.2-1.3) mg/dL AST 25 (14-36) U/L ALT 14 (0-35) U/L Alkaline Phosphatase 112 (38-126) U/L Troponin I < 0.012 (0.000-0.034) ng/mL NT-Pro-B Natriuret Pep 145 (0-900) pg/mL Serum Total Protein 7.4 (6.3-8.2) g/dL Albumin 4.1 (3.5-5.0) g/dL 06/07/22 Range/Units 18:45 WBC 9.5 (4.0-10.5) x10^3/uL RBC 4.59 (4.1-5.4) x10^6/uL Hgb 13.1 (12.0-16.0) g/dL Hct 41.3 (35-47) % MCV 90.0 (78-100) fL MCH 28.5 (26-32) pg MCHC 31.7 L (32-36) g/dL RDW 14.0 (11.5-14.0) % Plt Count 190 (150-450) x10^3/uL MPV 10.0 (7.5-11.0) fL Gran % 83.2 H (36.0-66.0) % Immature Gran % (Auto) 0.4 (0.00-0.4) % Nucleat RBC Rel Count 0.0 (0.00-0.1) % Eos # (Auto) 0.22 (0-0.5) x10^3/uL Immature Gran # (Auto) 0.04 H (0.00-0.03) x10^3u/L Absolute Lymphs (auto) 0.97 L (1.0-4.6) x10^3/uL Absolute Monos (auto) 0.34 (0.0-1.3) x10^3/uL Absolute Nucleated RBC 0.00 (0.00-0.01) x10^3u/L Lymphocytes % 10.2 L (24.0-44.0) % Monocytes % 3.6 (0.0-12.0) % Eosinophils % 2.3 (0.00-5.0) % Basophils % 0.3 (0.0-0.4) % Absolute Granulocytes 7.93 H (1.4-6.9) x10^3/uL Basophils # 0.03 (0-0.4) x10^3/uL Puncture Site pCO2 (35-45) mmHg pO2 (75-100) mmHg Base Excess (-2.0-2.0) O2 Saturation (94-100) g/dF ABG pH (7.35-7.45) ABG HCO3 (22-28) ABG O2 Sat (Measured) (95-100) % Hiro Test A-a Gradient a/A Ratio Hemoglobin Carboxyhemoglobin (0.0-6.9) % THgb Methemoglobin (1.4-1.5) % Temperature C POC O2 Flow Rate % Sodium (137-145) mmol/L Potassium (3.5-5.1) mmol/L Chloride (98-107) mmol/L Carbon Dioxide (22-30) mmol/L Anion Gap (5-15) MEQ/L BUN (7-17) mg/dL Creatinine (0.52-1.04) mg/dL Estimated GFR ML/MIN Glucose (74-106) mg/dL Lactic Acid (0.4-2.0) Calcium (8.4-10.2) mg/dL Magnesium (1.6-2.3) mg/dL Total Bilirubin (0.2-1.3) mg/dL AST (14-36) U/L ALT (0-35) U/L Alkaline Phosphatase (38-126) U/L Troponin I (0.000-0.034) ng/mL NT-Pro-B Natriuret Pep (0-900) pg/mL Serum Total Protein (6.3-8.2) g/dL Albumin (3.5-5.0) g/dL - Progress Progress: re-examined Air Movement: fair Progress Note: 06/07/22 19:21 67-year-old is evaluated for sudden onset shortness of breath and chest pain. Initial EKG showed some questionable anterior lead elevation. She is given DuoNeb and Solu-Medrol, repeated EKG and has gradually worsening elevation. EKG is faxed to [facility] ER and they agree with patient having ST elevation CT. She already have a dose of aspirin and Nitropaste. We will give heparin and patient will be promptly transferred to [facility] for cardiac cath. 06/07/22 19:34 Reevaluation patient is feeling better and currently does not report to having any chest pain but minimal discomfort. Shortness of breath is also better. Discussed with Dr. Kraus at [facility], reviewed history, work-up, patient is excepted for transfer. We will give 5000 IU heparin. 06/07/22 19:36 Blood Culture(s) Obtained: Yes Antibiotics given: No Discussed with : Other Will see patient in: ED Counseled pt/family regarding: lab results, diagnosis, need for follow-up, rad results - Departure Departure Disposition: Transfer Clinical Impression: STEMI (ST elevation myocardial infarction) Condition: Fair Critical Care Time: Yes Critical Care Time(excluding separately billable procedures): Critical 30-74 mins Referrals: DANY GUTHRIE [Primary Care Provider] - Follow up/PCP as directed
[2022-06-07 19:13] LABS: Calcium 9.1 mg/dL (8.4-10.2)
[2022-06-07 19:15] VITALS: BP 122/85; PULSE 91
[2022-06-07 19:17] LABS: ALBUMIN 4.1 g/dL (3.5-5.0); ANION GAP 13.2 MEQ/L (5-15); BILIRUBIN,TOTAL 0.4 mg/dL (0.2-1.3); Creatinine 1 1.23 mg/dL (0.52-1.04); Potassium 4.5 mmol/L (3.5-5.1); Total Protein 7.4 g/dL (6.3-8.2)
[2022-06-07 19:23] VITALS: O2SAT 97
[2022-06-07] MEDS ORDERED: Heparin 5000 UNITS/0.5 ML (HIGH RISK MED) IV ONE (19:35)
[2022-06-07] MEDS ORDERED: Heparin 5000 UNITS/0.5 ML (HIGH RISK MED) ONE (19:38)
--- NOTE | 2022-06-07 20:07 | XRAY ---
Exam: AP upright portable chest film from 06/07/2022. Comparison: AP upright portable chest film from 03/28/2022. Indication: COPD; smoker; chest pain; shortness of breath. Findings: The transverse heart size is towards the upper limits of normal representing no significant interval change. A calcified, mildly tortuous thoracic aorta is again seen. The remainder of the kaila and mediastinal structures appears unremarkable. There has been interval placement of a left-sided cardiac pacemaker with bipolar transvenous leads in place, one lead tip in the projection of the right atrium and the other lead tip in the projection of the apex of the right ventricle. The leads appear intact. I see no acute air space infiltrates, vascular congestion, pneumothorax, or pleural fluid. Mild biapical pleural-parenchymal scarring is seen representing no change. Some minimal chronic lung markings are again seen at the lung bases and peripheral right upper lung field. No acute osseous process is seen. Impression: 1. Interval placement of left-sided cardiac pacemaker, as discussed above. 2. No acute heart failure, focal pneumonia, or other acute cardiopulmonary disease is seen. 3. Chronic pleural-parenchymal scarring at both lung apices and minimal bibasilar and lateral right upper lung field chronic lung markings are again seen.
== END 2022-06-07 19:45 | disposition short-term general hospital (02) ==
LOC: ED 18:11
DX: I21.3 ST elevation (STEMI) myocardial infarction of unspecified site (principal); I50.9 Heart failure, unspecified; I11.0 Hypertensive heart disease with heart failure; J44.9 Chronic obstructive pulmonary disease, unspecified; Z99.81 Dependence on supplemental oxygen; J96.10 Chronic respiratory failure, unspecified whether with hypoxia or hypercapnia; E78.5 Hyperlipidemia, unspecified; E11.9 Type 2 diabetes mellitus without complications; Z72.0 Tobacco use; Z79.899 Other long term (current) drug therapy
CPT/HCPCS: 36000; 36415; 36600; 71045; 80053; 82375; 82803; 83605; 83735; 83880; 84484; 85025; 87040; 93005; 93041; 94640; 96374; 99285; J1644; J2930; A9270-GY

== ENCOUNTER 2022-09-10 10:04 | Day surgery (SDC) | payer MEDICARE ==
--- NOTE | 2022-09-10 08:31 | HP ---
DATE OF SURGERY: 09/10/2022 HISTORY OF PRESENT ILLNESS: The patient is a 67-year-old with history of dysphagia upper esophagus. She had dilatation in the past and improved. She is interested in EGD possible dilatation. PAST MEDICAL HISTORY: Congestive heart failure, heart disease, hiatal hernia, chronic obstructive pulmonary disease, arthritis in the past. She had aneurysm in the past. PAST SURGICAL HISTORY: Cholecystectomy. Hysterectomy. EGD and dilatation. Pelvic fracture repair in the past. MEDICATIONS: Ipratropium/albuterol inhaler, tramadol, albuterol nebulizer, atorvastatin, spironolactone, Trelegy Ellipta, Entresto, amlodipine, Farxiga, aspirin, Furosemide, clonidine, metformin, lisinopril, omeprazole, carvedilol, famotidine, isosorbide mononitrate. ALLERGIES: NKDA. FAMILY HISTORY: Negative in regards to this problem. SOCIAL HISTORY: Smoker. No alcohol abuse. REVIEW OF SYSTEMS: Fourteen systems reviewed pertinent for multiple medical problems noted above. No chest pain or palpitations. PHYSICAL EXAMINATION: GENERAL: No acute distress. HEENT: Sclerae nonicteric. NECK: No JVD. CHEST: Equal excursion. CVS: Regular rate and rhythm. ABDOMEN: Soft. EXTREMITIES: No cyanosis. SKIN: Dry. NEURO: Alert. PSYCH: Appropriate mood and affect. IMPRESSION: Dysphagia, in need of EGD possible dilatation. General risk of bleeding or infection, risk of bowel injury or perforation, risk of missed or nondiagnosis or incomplete exam, possibly requiring barium swallow, other studies or procedures. General risk of anesthesia or sedation, possibility of no improvement with dilatation possibly requiring follow up upper GI study and/or different type of dilator, possibility that it could be a functional problem rather than a narrowing and may not benefit from dilatation. She understands and agrees to the planned procedure, will proceed with EGD, possible biopsy, possible dilatation as an outpatient.
[2022-09-10] MEDS ORDERED: Lactated Ringers 1,000 ML IV ONE (10:29)
[2022-09-10] MEDS ORDERED: Sodium Chloride 3 ML UD NEBULES IH ONE (10:29)
[2022-09-10] MEDS: Sodium Chloride 3 ML UD NEBULES IH SCH (10:32)
[2022-09-10] MEDS: Xopenex 1.25 MG/0.5 ML UD NEBULE IH ONE (10:32)
[2022-09-10] MEDS: Lactated Ringers 1,000 ML IV SCH (10:49)
[2022-09-10 10:53] VITALS: O2SAT 98
[2022-09-10] MEDS ORDERED: Xylocaine-Mpf 2% 5 Ml Vial ONE (12:52)
[2022-09-10] MEDS ORDERED: DIPRIVAN 200 MG/20 ML IV ONE (12:52)
[2022-09-10] MEDS ORDERED: Versed 2 MG/2 ML Injection ONE (12:52)
[2022-09-10] MEDS ORDERED: Ketamine HCl 50 MG/ML ONE (12:53)
[2022-09-10 14:40] VITALS: BP 150/90; PULSE 88
--- NOTE | 2022-09-10 15:09 | OP ---
SURGERY DATE/TIME: 09/10/2022 1259 PREOPERATIVE DIAGNOSIS: Dysphagia upper esophagus. POSTOPERATIVE DIAGNOSES: 1) Proximal esophageal thickening, proximal esophageal narrowing without evidence of any mass. 2) Minimal to mild gastritis. 3) Short segment distal esophagitis. 4) ASA Class IV. PROCEDURES: 1) EGD with cold biopsy to antrum to evaluate for Helicobacter pylori. 2) Cold biopsy distal esophagus to evaluate for short segment distal esophagitis. 3) Proximal esophageal dilatation (size 20 balloon). SURGEON: Dr. Triston Peterson. ANESTHESIA: MAC. ESTIMATED BLOOD LOSS: Minimal. INDICATIONS: As noted above. Risks and benefits explained in detail and not limited to and consent was obtained. DESCRIPTION OF PROCEDURE AND FINDINGS: The patient is taken to the endoscopy room. MAC anesthesia introduced. After official time out and no disagreement with planned procedure, video gastroscope passed down the oropharynx. There was some proximal esophageal narrowing and spasm. No evidence of any obvious mass or lesion to biopsy. The scope was able to just be passed through here. As she is having symptoms it was felt this warranted dilatation during the procedure. The scope passed into the small bowel to the third portion of the duodenum. Third, second, first portion of the duodenum grossly unremarkable. Scope pulled back into the antrum. Cold biopsy taken in the antrum where she had some gastric erythema and some minimal to mild gastritis. Cold biopsies taken to evaluate for Helicobacter pylori. On retroflex, the gastroesophageal junction snug against the scope. The scope pulled back. The gastroesophageal junction 40 cm. There was a very short segment of 1 cm or less of little vague superficial erosion, distal esophagitis. Cold biopsy taken. There is a little bit of oozing there but appeared to have adequate hemostasis at the end of the procedure. The remainder of the esophagus grossly unremarkable. Proximal esophageal narrowing and spasm area where she was having symptoms, there was no mass to biopsy in this area and felt it warranted dilatation. Scope passed back down in the stomach. A 20 balloon catheter carefully inserted, pulled back up to the narrowed area in question and carefully inflated. First stage 30 seconds, second stage 30 seconds, final stage for 2 minutes. The balloon catheter is then released and withdrawn. The scope much more easily passed through this area down in the stomach balloon carefully withdrawn. It appeared to have adequate hemostasis. There were no signs of any full thickness issues secondary to dilatation or biopsy. The patient tolerated the procedure well. There were no immediate complications. I will see if she has any family to discuss the findings with out in the waiting area.
== END 2022-09-10 14:25 | disposition home or self-care (01) ==
LOC: SDC 10:04
PROVIDERS: ATTEND Surgery
DX: K29.70 Gastritis, unspecified, without bleeding (principal); R13.14 Dysphagia, pharyngoesophageal phase; E11.9 Type 2 diabetes mellitus without complications; K22.89 Other specified disease of esophagus; K20.90 Esophagitis, unspecified without bleeding
CPT/HCPCS: 82947; 94640; C1726; J2250; J2704; A9270-GY

== ENCOUNTER 2022-09-14 11:50 | Emergency (ER) | payer MEDICARE ==
[2022-09-14] MEDS ORDERED: Nitrostat 0.4 MG (ED) SL ONE ×2 (12:03→12:35)
[2022-09-14] MEDS ORDERED: BABY ASPIRIN 81 MG CHEW PO ONE (12:03)
[2022-09-14] MEDS ORDERED: solu-MEDROL 125 MG, Sterile H2O 10 ml 2 ML IV ONE ×2 (12:04)
--- NOTE | 2022-09-14 12:13 | ERPHSYRPT ---
- History of Present Illness Time Seen by Provider: 09/14/22 11:55 Historian: patient Exam Limitations: no limitations Patient Subjective Stated Complaint: Pt states that she woke up this morning and her oxygen was at 77% and so sushila upped her oxygen from 3L to 4L but everytime she got up she became SOB and so she came to the ER Triage Nursing Assessment: Pt brought to the ER by her son, hypertensive, rates mid to left sided chest pain as 7/10, wheezing can be heard across the room, pulses normal, smells of cat urine, gave herself 2 neb treatments this morning with no change in breathing, Physician History: This is a 67-year-old white female patient of Dr. Duglas Paul and maintenance controller Dr. Forrest who is an oxygen dependent COPD patient on 3 L of oxygen via nasal cannula. She woke up this morning and her oxygenation level on 3 L was 77%. She increased her oxygen to 4 L via nasal cannula and gave herself 2 nebulizer treatments but continued to feel short of breath with activity. Patient continues to smoke cigarettes. Other than the nebulizer treatments, the patient did not take any of her other medications. Patient has a history of congestive heart failure, tobacco abuse, hypertension, hyperlipidemia, diabetes and coronary artery disease. She has a defibrillator in place. Patient has a history of myocardial infarction in the past. She states that associated with the shortness of breath she has a 7 out of 10 chest pain that is sharp and is an anterior band across her chest transversely at the level of the mid sternum. She has not had a fever. She presents to the emergency room wheezing. Her systolic blood pressures in the 160s. Her oxygen saturation levels on 3 L is 99 to 100%. Timing/Duration: today, day(s) (Symptoms have been present for approximately 2 to 3 days), worse Activities at Onset: activity Quality: sharpness Location: substernal, central Chest Pain Radiation: no radiation Severity of Pain-Max: moderate Severity of Pain-Current: moderate Modifying Factors: Improves With: nothing Associated Symptoms: shortness of breath, cough, No nausea, No vomiting, No heartburn, No abdominal pain, No hurts to breathe Prior Chest Pain/Cardiac Workup: cardiac cath, heart attack Nitro Today/Relief: 0.4 mg x 1, provided by ED Aspirin Treatment Today: 325 mg x 1, provided by ED Allergies/Adverse Reactions: No Known Drug Allergies Allergy (Verified 09/14/22 12:07) Home Medications: Albuterol 8 gm Mdi Hfa [Ventolin Hfa MDI] 2 puffs IH Q4H PRN PRN 08/02/15 [History] Atorvastatin Calcium [Lipitor] 40 mg PO HS 12/06/18 [History] Carvedilol 12.5 mg [Coreg 12.5 mg] 25 mg PO BID 11/12/20 [History] Furosemide 40 mg [Lasix 40 MG] 20 mg PO DAILY 05/23/21 [History] Dapagliflozin Propanediol [Farxiga] 10 mg PO DAILY 12/07/21 [History] Spironolactone 25 mg [Aldactone 25 MG] 25 mg PO DAILY 12/07/21 [History] Tramadol HCl 50 mg [Ultram 50 mg] 50 mg PO Q6HPRN PRN 12/07/21 [History] Sacubitril/Valsartan [Entresto 49 mg-51 mg Tablet] 1 tablet PO BID 03/17/22 [History] Famotidine 20 mg [Pepcid 20 MG] 20 mg PO UD 09/04/22 [History] Fluticasone/Umeclidin/Vilanter [Trelegy Ellipta 100-62.5-25] 1 tab IH DAILY 09/04/22 [History] Ipratropium/Albuterol Sulfate [Combivent Respimat Common Canister] 1 puff IH TIDPRN 09/04/22 [History] Lisinopril/Hydrochlorothiazide [Lisinopril-Hctz 20-12.5 mg Tab] 1 tab PO UD 09/04/22 [History] Omeprazole 20 mg PO UD 09/04/22 [History] Hx Tetanus, Diphtheria Vaccination/Date Given: No Hx Influenza Vaccination/Date Given: No Hx Pneumococcal Vaccination/Date Given: No Travel Risk - International Travel Have you traveled outside of the country in past 3 weeks: No - Coronavirus Screening Are you exhibiting any of the following symptoms?: No Close contact with a COVID-19 positive Pt in past 14-21 Days: No - Vaccine Status Have you recieved a Covid-19 vaccination: Yes Pin Machine Tender: Moderna - Vaccination Dates Date of 2cond Vaccination (if applicable): 03/21/21 - Review of Systems Constitutional: No Symptoms Eyes: No Symptoms Ears, Nose, & Throat: No Symptoms Respiratory: Cough, Dyspnea Cardiac: Chest Pain Abdominal/Gastrointestinal: No Symptoms Genitourinary Symptoms: No Symptoms Musculoskeletal: No Symptoms Skin: No Symptoms Neurological: No Symptoms Psychological: No Symptoms Endocrine: No Symptoms Hematologic/Lymphatic: No Symptoms Immunological/Allergic: No Symptoms All Other Systems: Reviewed and Negative - Past Medical History Pertinent Past Medical History: Yes Neurological History: Migraines ENT History: No Pertinent History Cardiac History: Congestive Heart Failure, Coronary Artery Disease, High Cholesterol, Hypertension, Myocardial Infarction ([place]) Respiratory History: Asthma, Bronchitis, CHF, COPD, Emphysema, Pneumonia, Other Endocrine Medical History: Diabetes Type II Musculoskeletal History: Arthritis GI Medical History: GERD, Gallbladder Disease History: No Pertinent History Psycho-Social History: Anxiety Female Reproductive Disorders: No Pertinent History Other Medical History: 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 - Past Surgical History Past Surgical History: Yes Neuro Surgical History: No Pertinent History Cardiac: No Pertinent History Respiratory: No Pertinent History Gastrointestinal: Cholecystectomy Genitourinary: No Pertinent History Musculoskeletal: Orthopedic Surgery Female Surgical History: Hysterectomy Other Surgical History: right knee replacement, screw in pelvis, misha in left leg - Social History Smoking Status: Current every day smoker How long have you smoked: "50 years" Exposure to second hand smoke: Yes Drug Use: none Patient Lives Alone: No Significant Family History: no pertinent family hx - Nursing Vital Signs Nursing Vital Signs: Initial Vital Signs Temperature 98.7 F 09/14/22 11:51 Pulse Rate 107 H 09/14/22 11:51 Respiratory Rate 17 09/14/22 11:51 Blood Pressure 165/122 09/14/22 11:51 O2 Sat by Pulse Oximetry 99 09/14/22 11:51 Pain Scale Pain Intensity 5 - Physical Exam General Appearance: no apparent distress, alert, anxiety Eye Exam: PERRL/EOMI, eyes nml inspection Ears, Nose, Throat Exam: normal ENT inspection, moist mucous membranes Neck Exam: normal inspection, non-tender, supple, full range of motion Respiratory Exam: chest tenderness, airway intact, wheezing (Bilateral inspiratory and expiratory), No respiratory distress, No stridor Cardiovascular Exam: normal peripheral pulses, tachycardia Gastrointestinal/Abdomen Exam: soft, normal bowel sounds, No tenderness Pelvic Exam: not done Rectal Exam: not done Back Exam: normal inspection, normal range of motion, No CVA tenderness, No vertebral tenderness Extremity Exam: normal inspection, normal range of motion, pelvis stable Neurologic Exam: alert, oriented x 3, cooperative, event marketing intern II-XII nml as tested, normal mood/affect, nml cerebellar function, nml station & gait, sensation nml Skin Exam: normal color, warm, dry Lymphatic Exam: No adenopathy SpO2 Interpretation: normal SpO2: 99 O2 Delivery: Nasal Cannula (3 liters oxygen via nasal cannula) - Course Nursing assessment & vital signs reviewed: Yes EKG Interpreted by Me: RATE (1o5), Sinus Tach, NORMAL AXIS, NORMAL INTERVALS, NORMAL QRS, NORMAL ST-T, Other (No acute ischemic changes on today's twelve-lead EKG. No significant change from twelve-lead EKG performed on 06/07/2022) Ordered Tests: Active Orders 24 hr Category Date Time Status EKG-ER Only STAT Care 09/14/22 12:03 Active IV Insertion STAT Care 09/14/22 12:03 Active Pulse Oximetry (ED) STAT Care 09/14/22 12:03 Active CHEST 1 VIEW (PORTABLE) Stat Exams 09/14/22 12:03 Completed CHEST WITH CONTRAST [CT] Stat Exams 09/14/22 14:03 Completed CBC W DIFF Stat Lab 09/14/22 12:06 Completed CMP Stat Lab 09/14/22 12:06 Completed D-DIMER QUANTITATIVE Stat Lab 09/14/22 12:06 Completed NT PRO BNP Stat Lab 09/14/22 12:06 Completed TROPONIN Q4H Lab 09/14/22 16:15 Ordered TROPONIN Q4H Lab 09/14/22 20:15 Ordered Respiratory Therapy Assessment ONCE RT 09/14/22 12:31 Active Medication Summary Generic Name Dose Route Start Last Admin Trade Name Freq PRN Reason Stop Dose Admin Furosemide 40 mg 09/14/22 15:44 Furosemide 40 Mg/4 Ml Vial IV 09/14/22 15:45 STAT ONE Sodium Chloride 500 mls @ 50 mls/hr 09/14/22 14:15 09/14/22 14:29 Sodium Chloride 0.9% 500 Ml IV 10/14/22 14:14 50 mls/hr .Q10H CARLOS ENRIQUE Administration Discontinued Medications Generic Name Dose Route Start Last Admin Trade Name Thu PRN Reason Stop Dose Admin Albuterol/Ipratropium 3 ml 09/14/22 12:31 09/14/22 12:38 Ipratropium/Albuterol Sulfate 3 Ml Ampul.Neb IH 09/14/22 12:32 3 ml STAT ONE Administration Albuterol/Ipratropium Confirm 09/14/22 12:37 Ipratropium/Albuterol Sulfate 3 Ml Ampul.Neb Administered 09/14/22 12:38 Dose 3 ml IH .STK-MED ONE Aspirin 324 mg 09/14/22 12:03 09/14/22 12:38 Aspirin 81 Mg Tab.Chew PO 09/14/22 12:04 324 mg STAT ONE Administration Aspirin Confirm 09/14/22 12:35 Aspirin 81 Mg Tab.Chew Administered 09/14/22 12:36 Dose 324 mg .ROUTE .STK-MED ONE Methylprednisolone Sodium 0 mg 09/14/22 12:04 09/14/22 12:38 Succinate 125 mg/ Sterile IV 09/14/22 12:05 125 mg Water 2 ml STAT ONE Administration Methylprednisolone Sodium Succinate Confirm 09/14/22 12:35 Methylprednis Sod Succ 125 Mg/2 Ml Vial Administered 09/14/22 12:36 Dose 125 mg .ROUTE .STK-MED ONE Nitroglycerin 0.4 mg 09/14/22 12:03 09/14/22 12:38 Nitroglycerin 0.4 Mg (Ed) 0.4 Mg Tab.Subl SL 09/14/22 12:04 0.4 mg STAT ONE Administration Nitroglycerin Confirm 09/14/22 12:35 Nitroglycerin 0.4 Mg (Ed) 0.4 Mg Tab.Subl Administered 09/14/22 12:36 Dose 0.4 mg SL .STK-MED ONE Sterile Water Confirm 09/14/22 12:35 Water For Injection,Sterile 10 Ml Vial Administered 09/14/22 12:36 Dose 10 ml IJ .STK-MED ONE Lab/Rad Data: Laboratory Result Diagrams 09/14/22 12:06 09/14/22 12:06 Laboratory Results 09/14/22 09/14/22 09/14/22 Range/Units 12:06 12:06 12:06 WBC (4.0-10.5) x10^3/uL RBC (4.1-5.4) x10^6/uL Hgb (12.0-16.0) g/dL Hct (35-47) % MCV (78-100) fL MCH (26-32) pg MCHC (32-36) g/dL RDW (11.5-14.0) % Plt Count (150-450) x10^3/uL MPV (7.5-11.0) fL Gran % (36.0-66.0) % Immature Gran % (Auto) (0.00-0.4) % Nucleat RBC Rel Count (0.00-0.1) % Eos # (Auto) (0-0.5) x10^3/uL Immature Gran # (Auto) (0.00-0.03) x10^3u/L Absolute Lymphs (auto) (1.0-4.6) x10^3/uL Absolute Monos (auto) (0.0-1.3) x10^3/uL Absolute Nucleated RBC (0.00-0.01) x10^3u/L Lymphocytes % (24.0-44.0) % Monocytes % (0.0-12.0) % Eosinophils % (0.00-5.0) % Basophils % (0.0-0.4) % Absolute Granulocytes (1.4-6.9) x10^3/uL Basophils # (0-0.4) x10^3/uL D-Dimer 4.12 H* (0.0-0.50) mg/L Sodium 134 L (137-145) mmol/L Sodium Direct 135 L (138-146) mmol/L Potassium 4.1 (3.5-5.1) mmol/L Chloride 100 (98-107) mmol/L Carbon Dioxide 27 (22-30) mmol/L Anion Gap 11.3 (5-15) MEQ/L BUN 14 (7-17) mg/dL Venous BUN 14 (8-26) mg/dL Creatinine 0.84 (0.52-1.04) mg/dL Estimated GFR > 60.0 ML/MIN Glucose 165 H (74-106) mg/dL Calcium 8.9 (8.4-10.2) mg/dL Ionized Calcium 1.22 (1.12-1.32) mmol/L Total Bilirubin 1.30 (0.2-1.3) mg/dL AST 72 H (14-36) U/L ALT 23 (0-35) U/L Alkaline Phosphatase 169 H (38-126) U/L Troponin 0.03 (0.00-0.03) ng/mL NT-Pro-B Natriuret Pep 281 (0-900) pg/mL Serum Total Protein 7.7 (6.3-8.2) g/dL Albumin 4.1 (3.5-5.0) g/dL Influenza Type A Ag (NEGATIVE) Influenza Type B Ag (NEGATIVE) RSV (PCR) (Negative) SARS-CoV-2 (PCR) (NEGATIVE) 09/14/22 09/14/22 Range/Units 12:06 12:05 WBC 7.6 (4.0-10.5) x10^3/uL RBC 4.34 (4.1-5.4) x10^6/uL Hgb 12.2 (12.0-16.0) g/dL Hct 39.3 (35-47) % MCV 90.6 (78-100) fL MCH 28.1 (26-32) pg MCHC 31.0 L (32-36) g/dL RDW 12.5 (11.5-14.0) % Plt Count 290 (150-450) x10^3/uL MPV 9.5 (7.5-11.0) fL Gran % 64.4 (36.0-66.0) % Immature Gran % (Auto) 0.5 H (0.00-0.4) % Nucleat RBC Rel Count 0.0 (0.00-0.1) % Eos # (Auto) 0.39 (0-0.5) x10^3/uL Immature Gran # (Auto) 0.04 H (0.00-0.03) x10^3u/L Absolute Lymphs (auto) 1.57 (1.0-4.6) x10^3/uL Absolute Monos (auto) 0.64 (0.0-1.3) x10^3/uL Absolute Nucleated RBC 0.00 (0.00-0.01) x10^3u/L Lymphocytes % 20.7 L (24.0-44.0) % Monocytes % 8.5 (0.0-12.0) % Eosinophils % 5.2 H (0.00-5.0) % Basophils % 0.7 (0.0-0.4) % Absolute Granulocytes 4.88 (1.4-6.9) x10^3/uL Basophils # 0.05 (0-0.4) x10^3/uL D-Dimer (0.0-0.50) mg/L Sodium (137-145) mmol/L Sodium Direct (138-146) mmol/L Potassium (3.5-5.1) mmol/L Chloride (98-107) mmol/L Carbon Dioxide (22-30) mmol/L Anion Gap (5-15) MEQ/L BUN (7-17) mg/dL Venous BUN (8-26) mg/dL Creatinine (0.52-1.04) mg/dL Estimated GFR ML/MIN Glucose (74-106) mg/dL Calcium (8.4-10.2) mg/dL Ionized Calcium (1.12-1.32) mmol/L Total Bilirubin (0.2-1.3) mg/dL AST (14-36) U/L ALT (0-35) U/L Alkaline Phosphatase (38-126) U/L Troponin (0.00-0.03) ng/mL NT-Pro-B Natriuret Pep (0-900) pg/mL Serum Total Protein (6.3-8.2) g/dL Albumin (3.5-5.0) g/dL Influenza Type A Ag NEGATIVE (NEGATIVE) Influenza Type B Ag NEGATIVE (NEGATIVE) RSV (PCR) NEGATIVE (Negative) SARS-CoV-2 (PCR) NEGATIVE (NEGATIVE) - Progress Progress: improved, re-examined Air Movement: fair Progress Note: 09/14/22 13:04 Chest x-ray shows new cardiomegaly. Lungs are clear. 09/14/22 15:44 CTA of chest shows no pulmonary embolus. There is mild findings of CHF including cardiomegaly. No evidence of pneumonia. Counseled pt/family regarding: lab results, diagnosis, rad results - Departure Departure Disposition: Home Clinical Impression: Shortness of breath, COPD exacerbation Condition: Stable Critical Care Time: No Referrals: DANY GUTHRIE [Primary Care Provider] - Follow up/PCP as directed Instructions: Chronic Obstructive Pulmonary Disease
[2022-09-14 12:14] LABS: Absolute Neutrophil Ct (ANC) 4.88 x10^3/uL (1.4-6.9); Basophil (Absolute #) 0.05 x10^3/uL (0-0.4); Eosinophil % 5.2 % (0.00-5.0); Eosinophil (Absolute #) 0.39 x10^3/uL (0-0.5); Hematocrit 39.3 % (35-47); Hemoglobin 12.2 g/dL (12.0-16.0); Lymphocyte (Absolute #) 1.57 x10^3/uL (1.0-4.6); Lymphocytes % 20.7 % (24.0-44.0); Mean Cell Volume 90.6 fL (78-100); Mean Corpuscular Hemoglobin 28.1 pg (26-32); Mean Platelet Volume 9.5 fL (7.5-11.0); Monocyte (Absolute #) 0.64 x10^3/uL (0.0-1.3); Monocytes % 8.5 % (0.0-12.0); Neutrophil % 64.4 % (36.0-66.0); Platelet Count 290 x10^3/uL (150-450); Red Blood Count 4.34 x10^6/uL (4.1-5.4); Red Cell Distribution Width 12.5 % (11.5-14.0); White Blood Count 7.6 x10^3/uL (4.0-10.5)
[2022-09-14] MEDS ORDERED: DUONEB 0.5-3 MG/3 ml Neb IH ONE ×2 (12:31→12:37)
--- NOTE | 2022-09-14 12:33 | XRAY ---
Indication: Short of breath and wheezing. Comparison: June 07, 2022 Portable chest demonstrates new cardiomegaly with stable left pacemaker. Lungs remain clear. Bony thorax intact again with osteopenia and degenerative changes.
[2022-09-14] MEDS ORDERED: solu-MEDROL ONE (12:35)
[2022-09-14] MEDS ORDERED: BABY ASPIRIN 81 MG CHEW ONE (12:35)
[2022-09-14] MEDS ORDERED: Sterile H2O 10 ml IJ ONE (12:35)
[2022-09-14 12:50] LABS: INFLUENZA A NEGATIVE (NEGATIVE); INFLUENZA B NEGATIVE (NEGATIVE); RESPIRATORY SYNCTIAL VIRUS NEGATIVE (Negative); SARS-CoV-2 Xpert Express NEGATIVE (NEGATIVE)
[2022-09-14 13:53] LABS: ISTAT BUN 14 mg/dL (8-26); ISTAT CL 98 mmol/L (98-109); ISTAT CO2 29 mmol/L (24-29); ISTAT GLUC 173 mg/dL (70-105); ISTAT NA 135 mmol/L (138-146)
[2022-09-14] MEDS ORDERED: Sodium Chloride 0.9% 500 ML 500 ML IV SCH (14:15)
[2022-09-14] MEDS ORDERED: Sodium Chloride 0.9% 500 ML 500 ML IV ONE (14:27)
[2022-09-14 14:50] LABS: ALBUMIN 4.1 g/dL (3.5-5.0); ALKALINE PHOSPHATASE 169 U/L (38-126); ANION GAP 11.3 MEQ/L (5-15); BLOOD UREA NITROGEN 14 mg/dL (7-17); CHLORIDE 100 mmol/L (98-107); Calcium 8.9 mg/dL (8.4-10.2); Carbon Dioxide 27 mmol/L (22-30); Creatinine 1 0.84 mg/dL (0.52-1.04); EST GLOMERULAR FILTRATION RATE > 60.0 ML/MIN; Glucose 165 mg/dL (74-106); NT PRO BNP 281 pg/mL (0-900); Potassium 4.1 mmol/L (3.5-5.1); SGOT/AST 72 U/L (14-36); SGPT/ALT 23 U/L (0-35); SODIUM 134 mmol/L (137-145); Total Protein 7.7 g/dL (6.3-8.2)
--- NOTE | 2022-09-14 15:33 | XRAY ---
Indication: Short of breath. Elevated d-dimer. Multiple contiguous axial images obtained through the chest using 100 cc Isovue 370 contrast and PE protocol. Comparison: March 17, 2022 Good opacification of the pulmonary arteries. However mild respiration artifact limits evaluation for pulmonary was. No obvious pulmonary embolus. Heart is now enlarged with new moderate pericardial effusion. New left dual-lead pacemaker. Aorta remains mildly arteriosclerotic without aneurysm/dissection. Stable tiny right hilar calcified nodes. No pathologic mediastinal/hilar lymphadenopathy. Lungs again demonstrates pulmonary emphysema with scattered fibrosis/scarring. No new pulmonary mass/nodule, infiltrate, effusion, or pneumothorax. Bony thorax intact again with osteopenia and mild degenerative changes throughout the spine. Limited upper abdomen again demonstrates multiple splenic calcific granulomas and cholecystectomy clips. Impression: 1. Pulmonary embolus evaluation limited by respiration artifact. No obvious pulmonary embolus. 2. New cardiomegaly with pericardial effusion. Echocardiogram may yield further information. 3. Again pulmonary emphysema, scattered fibrosis/scarring, chronic bony findings, and old granulomatous disease.
[2022-09-14] MEDS ORDERED: Lasix 40 MG/4 ML IV ONE (15:44)
[2022-09-14] MEDS ORDERED: Lasix 40 MG/4 ML ONE (15:56)
[2022-09-14 17:03] VITALS: BP 141/111; PULSE 96; O2SAT 96
== END 2022-09-14 17:16 | disposition home or self-care (01) ==
LOC: ED 11:50
DX: J44.1 Chronic obstructive pulmonary disease with (acute) exacerbation (principal); R06.02 Shortness of breath; Z99.81 Dependence on supplemental oxygen; R07.9 Chest pain, unspecified; I11.0 Hypertensive heart disease with heart failure; I50.9 Heart failure, unspecified; E78.5 Hyperlipidemia, unspecified; E11.9 Type 2 diabetes mellitus without complications; Z72.0 Tobacco use; Z79.84 Long term (current) use of oral hypoglycemic drugs; Z79.899 Other long term (current) drug therapy; Z20.828 Contact with and (suspected) exposure to other viral communicable diseases
CPT/HCPCS: 0241U; 36000; 36415; 71045; 71260; 80047; 80053; 83880; 84484; 85025; 85379; 93005; 94640; 94760; 96374; 96375; 99284; J1940; J2930; A9270-GY

== ENCOUNTER 2023-06-10 09:55 | Day surgery (SDC) | payer MEDICARE ==
--- NOTE | 2023-06-10 09:10 | HP ---
DATE OF SURGERY: 06/10/2023 HISTORY OF PRESENT ILLNESS: The patient is a 68-year-old having trouble swallowing and also in need of screening colonoscopy. She is having increased dysphagia upper esophagus mostly solids. She had prior EGD and dilatation in the past. I feel she is in need of screening colonoscopy. No bloody stools or change in bowel movements. Family history negative for colon cancer. PAST MEDICAL HISTORY: Heart disease, hypertension, arthritis, hiatal hernia, diabetes mellitus type II, chronic obstructive pulmonary disease. PAST SURGICAL HISTORY: Colonoscopy. Cholecystectomy. Hysterectomy. EGD. MEDICATIONS: Prednisone, Ranexa, ipratropium, albuterol nebulizer, tramadol, atorvastatin, spironolactone, furosemide, Trelegy Ellipta, amlodipine, Farxiga, furosemide, aspirin, clonidine, metformin, lisinopril, carvedilol, isosorbide mononitrate. ALLERGIES: NKDA. FAMILY HISTORY: Negative for colon cancer. SOCIAL HISTORY: History of smoking. No alcohol abuse. REVIEW OF SYSTEMS: Fourteen systems reviewed. Negative or noncontributory as above and per preadmission assessment. PHYSICAL EXAMINATION: BMI 27.37. Height 5'8". GENERAL: A chronically ill female in no acute distress. HEENT: Sclerae nonicteric. EOMI. Oral mucous membranes moist. NECK: No JVD. CHEST: Equal excursion, nonlabored breathing. CVS: Regular rate and rhythm. ABDOMEN: Soft. EXTREMITIES: No significant edema. NEURO: Alert, oriented, moving extremities symmetrically. RECTAL: Deferred timed to endoscopy exam. PSYCH: Appropriate mood and affect. SKIN: Dry. IMPRESSION: History of dysphagia mostly upper esophagus. She needs EGD possible biopsy possible dilatation. She also needs follow up screening colonoscopy. Risks and benefits explained in detail including bleeding or infection, risk of bowel injury or perforation, risk of missed or nondiagnosis or incomplete exam possibly requiring barium enema, barium swallow, other studies or procedures, possibility that dilatation may not improve her swallowing and may need further work up either esophagogram, upper GI or even different type of dilator or referral to a specialist. Risk of dilatation may not improve her swallowing and may need other work up. Possibility if dilatation does improve swallowing possible need for repeat again down the road. General risk of anesthesia, deep vein thrombosis, pulmonary embolism or pneumonia. Risk of bowel injury or bowel perforation possibly requiring other procedures, ongoing morbidity but not limited to. Consent obtained, will proceed with EGD possible biopsy possible dilatation as well as screening colonoscopy.
[2023-06-10] MEDS ORDERED: Lactated Ringers 1,000 ML IV SCH (10:30)
[2023-06-10] MEDS ORDERED: Xopenex 1.25 MG/0.5 ML UD NEBULE IH ONE (10:32)
[2023-06-10] MEDS ORDERED: Sodium Chloride 3 ML UD NEBULES IH ONE (10:32)
[2023-06-10] MEDS ORDERED: Lactated Ringers 1,000 ML IV ONE (10:39)
[2023-06-10] MEDS ORDERED: DIPRIVAN 200 MG/20 ML IV ONE ×2 (11:38→12:14)
[2023-06-10] MEDS ORDERED: Xylocaine-Mpf 2% 5 Ml Vial ONE (11:38)
[2023-06-10] MEDS ORDERED: Versed 2 MG/2 ML Injection ONE (11:38)
[2023-06-10] MEDS ORDERED: Amidate 20 MG/10 ML IV ONE (11:39)
[2023-06-10 13:08] VITALS: RESP 16
[2023-06-10 13:24] VITALS: BP 157/84; PULSE 69; TEMP 96.2; O2SAT 95
--- NOTE | 2023-06-11 08:44 | OP ---
SURGERY DATE/TIME: 06/10/2023 1145 PREOPERATIVE DIAGNOSES: 1) History of dysphagia, need for upper endoscopy. 2) Need for screening colonoscopy. POSTOPERATIVE DIAGNOSES: 1) Mild gastritis. 2) First segment distal esophagitis. 3) Proximal esophageal narrowing and spasm, symptomatic. No evidence of any lesion in the area. 4) Colon polyps and some diverticulosis. 5) Fair but limited bowel prep. PROCEDURES: 1) EGD with cold biopsy of antrum. 2) Cold biopsy distal esophagus. 3) Proximal esophageal balloon dilatation (size 18 balloon dilator). 4) Colonoscopy to cecum, hot snare polypectomy ascending colon polyp. 5) Hot snare polypectomy transverse colon polyp. 6) Hot biopsy polypectomy of four ascending and additional transverse colon, five polyps removed with hot biopsy polypectomy. SURGEON: Dr. Triston Peterson. ANESTHESIA: MAC. ESTIMATED BLOOD LOSS: Minimal. INDICATIONS: As noted above. Risks and benefits explained in detail and not limited to and consent obtained. DESCRIPTION OF PROCEDURE AND FINDINGS: The patient is taken to the operating room. MAC anesthesia introduced. After official time out and no disagreement with planned procedure, bite block positioned. Video gastroscope easily passed down the oropharynx. There was a proximal esophageal narrowing and spasm without any evidence of any mass. It was felt that given her symptoms this warranted a trial of dilatation. Scope passed down through the gastroesophageal junction to the second and third portion of the duodenum. There were no signs of any ulcers or inflammation in the duodenum. The scope is carefully withdrawn. The patient tolerated the procedure well. Cold biopsy is taken in the antrum for Helicobacter pylori which showed some mild gastritis. On retroflex there were no signs of any large hiatal hernia. The scope is straightened. The gastroesophageal junction about 40 cm. There was a very short segment of a couple millimeters of distal esophagitis. Cold biopsy is taken. Good hemostasis noted. Good hemostasis noted. Otherwise, no signs of any other masses or mucosal lesions but there was symptomatic proximal esophageal narrowing and spasm. It was felt this warranted dilatation. The scope was passed back down into the stomach. Unfortunately, the size 20 balloon dilator was not available at this facility at this time. The largest size they had was size 18 therefore it was carefully inserted. The balloon catheter carefully admitted to the space in the stomach. Balloon catheter carefully pulled up the proximal esophagus where there was a narrowed area carefully inflated first stage 30 seconds, second stage 30 seconds and final stage 2 minutes with size 18 dilator. Balloon catheter is then decompressed and withdrawn. The area seemed to be much more widely patent. There was no evidence of any full thickness issues or injury secondary to dilatation. Good hemostasis noted at biopsy sites. The scope is removed. Attention is then turned to colonoscopy. Digital rectal exam did not reveal any rectal masses. Video colonoscope inserted and passed up the tortuous sigmoid, descending, transverse, ascending colon. Moderate diverticulosis in the left colon. The patient did have some tortuosity but with external pressure the scope was able to be passed around to the cecum. Appendiceal orifice and valve well visualized and photo documented. Prep overall was fair but even on a limited side it is fair as the patient had a large amount of liquidy semi-solid stool suctioned and irrigated as clear as possible. The scope is carefully withdrawn. There was a polyp in the ascending colon removed with hot snare polypectomy. Three additional polyps were removed with hot biopsy polypectomy ascending colon. In the transverse colon, snare polypectomy of transverse colon polyp removed with hot snare polypectomy in piecemeal fashion seemed to be removed intact. Otherwise, four or five others were removed with hot biopsy polypectomy. Good hemostasis noted. Scope is withdrawn. The patient again showed left side diverticula. Again, the prep was fair but limited prep. No signs of any large polyps, masses or obstructing lesions. The scope is withdrawn. I went out to look in the waiting room for any family or friends. Otherwise, I will see the patient back in a week or two to go over the biopsy results.
== END 2023-06-10 13:34 | disposition home or self-care (01) ==
LOC: SDC 09:55
PROVIDERS: ATTEND Surgery
DX: Z12.11 Encounter for screening for malignant neoplasm of colon (principal); Z87.19 Personal history of other diseases of the digestive system; K29.70 Gastritis, unspecified, without bleeding; K20.90 Esophagitis, unspecified without bleeding; K22.2 Esophageal obstruction; K57.30 Diverticulosis of large intestine without perforation or abscess without bleeding; D12.2 Benign neoplasm of ascending colon; D12.3 Benign neoplasm of transverse colon
CPT/HCPCS: 94640; C1726; J2250; J2704; J7614; A9270-GY

== ENCOUNTER 2023-08-06 10:26 | Emergency (ER) | payer MEDICARE ==
[2023-08-06] MEDS ORDERED: DUONEB 0.5-3 MG/3 ml Neb IH ONE ×2 (10:30→10:33)
[2023-08-06 10:36] VITALS: TEMP 96.8
--- NOTE | 2023-08-06 10:38 | ERPHSYRPT ---
- History of Present Illness Time Seen by Provider: 08/06/23 10:38 Source: patient Exam Limitations: no limitations Patient Subjective Stated Complaint: short of breath since wakening this morning Triage Nursing Assessment: Pt was brought to the ER by her son, vitals wnl, wheezing, did a neb treatment prior to coming to the ER, pulses normal, skin n/w/d, pt wears 3L at home, cough with some yellow expectorant Physician History: This is a 68-year-old obese white female patient who has multiple medical problems and continues to smoke cigarettes daily and presents to the emergency department with worsening shortness of breath over the last week. She is out of her prednisone medication. The earlier part of the week she was able to somewhat tolerate her symptoms. However in the last day and worse today, her nebulizer treatment is not helping. Patient denies chest pain. Patient has history of COPD, hyperlipidemia, hypertension, CHF, diabetes, coronary artery disease and recurrent bronchitis. Timing/Duration: week(s) (1), worse (Symptoms worse today.) Activities at Onset: none Severity of Dyspnea-Max: moderate Severity of Dyspnea-Current: moderate Modifying Factors: Improves With: albuterol nebulizer, coughing, oxygen Associated Symptoms: cough, No chest pain/discomfort Allergies/Adverse Reactions: No Known Drug Allergies Allergy (Verified 08/06/23 10:36) Home Medications: Albuterol 8 gm Mdi Hfa [Ventolin Hfa MDI] 2 puffs IH Q4H PRN PRN 08/02/15 [History] Atorvastatin Calcium [Lipitor] 40 mg PO HS 12/06/18 [History] Carvedilol 12.5 mg [Coreg 12.5 mg] 25 mg PO BID 11/12/20 [History] Furosemide 40 mg [Lasix 40 MG] 20 mg PO DAILY 05/23/21 [History] Dapagliflozin Propanediol [Farxiga] 10 mg PO DAILY 12/07/21 [History] Spironolactone 25 mg [Aldactone 25 MG] 25 mg PO DAILY 12/07/21 [History] Tramadol HCl 50 mg [Ultram 50 mg] 50 mg PO Q6HPRN PRN 12/07/21 [History] Sacubitril/Valsartan [Entresto 49 mg-51 mg Tablet] 1 tablet PO BID 03/17/22 [History] Famotidine 20 mg [Pepcid 20 MG] 20 mg PO UD 09/04/22 [History] Fluticasone/Umeclidin/Vilanter [Trelegy Ellipta 100-62.5-25] 1 tab IH DAILY 09/04/22 [History] Ipratropium/Albuterol Sulfate [Combivent Respimat Common Canister] 1 puff IH TIDPRN 09/04/22 [History] Amlodipine Besylate [Norvasc] 2.5 mg PO DAILY 06/04/23 [History] Ranolazine 500 MG [Ranexa 500 MG] 500 mg PO BID 06/04/23 [History] predniSONE [Prednisone] 10 mg PO DAILY 06/04/23 [History] Hx Tetanus, Diphtheria Vaccination/Date Given: No Hx Influenza Vaccination/Date Given: No Hx Pneumococcal Vaccination/Date Given: No Travel Risk - International Travel Have you traveled outside of the country in past 3 weeks: No - Coronavirus Screening Are you exhibiting any of the following symptoms?: No Close contact with a COVID-19 positive Pt in past 14-21 Days: No - Vaccine Status Have you recieved a Covid-19 vaccination: Yes [employer]: Moderna - Vaccination Dates Date of 2cond Vaccination (if applicable): 2020 - Review of Systems Constitutional: No Symptoms Eyes: No Symptoms Ears, Nose, & Throat: No Symptoms Respiratory: Cough, Dyspnea Cardiac: No Symptoms Abdominal/Gastrointestinal: No Symptoms Genitourinary Symptoms: No Symptoms Musculoskeletal: No Symptoms Skin: No Symptoms Neurological: No Symptoms Psychological: No Symptoms Endocrine: No Symptoms Hematologic/Lymphatic: No Symptoms Immunological/Allergic: No Symptoms All Other Systems: Reviewed and Negative - Past Medical History Pertinent Past Medical History: Yes Neurological History: Migraines ENT History: No Pertinent History Cardiac History: Congestive Heart Failure, Coronary Artery Disease, High Cholesterol, Hypertension, Myocardial Infarction (DE) Respiratory History: Asthma, Bronchitis, CHF, COPD, Emphysema, Pneumonia, Other Endocrine Medical History: No Pertinent History Musculoskeletal History: Arthritis GI Medical History: GERD, Gallbladder Disease History: No Pertinent History Psycho-Social History: Anxiety Female Reproductive Disorders: No Pertinent History Other Medical History: 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 - Past Surgical History Past Surgical History: Yes Neuro Surgical History: No Pertinent History Cardiac: Internal Defibrillator Respiratory: No Pertinent History Gastrointestinal: Cholecystectomy Genitourinary: No Pertinent History Musculoskeletal: Orthopedic Surgery Female Surgical History: Hysterectomy Other Surgical History: right knee replacement, screw in pelvis, misha in left leg - Social History Smoking Status: Current every day smoker How long have you smoked: "50 years" Exposure to second hand smoke: Yes Drug Use: none Patient Lives Alone: Yes Significant Family History: no pertinent family hx - Nursing Vital Signs Nursing Vital Signs: Initial Vital Signs Temperature 96.8 F 08/06/23 10:29 Pulse Rate 95 H 08/06/23 10:29 Blood Pressure 133/88 08/06/23 10:29 O2 Sat by Pulse Oximetry 98 08/06/23 10:29 Pain Scale Pain Intensity 0 - Physical Exam General Appearance: mild distress, alert, anxiety, obese Eye Exam: PERRL/EOMI, eyes nml inspection Ears, Nose, Throat Exam: hearing grossly normal, normal ENT inspection, normal pharynx Neck Exam: normal inspection, non-tender, supple, full range of motion Respiratory Exam: normal breath sounds, lungs clear, airway intact, No chest tenderness, No respiratory distress Cardiovascular/Chest Exam: normal heart sounds, regular rate/rhythm Abdominal/Gastrointestinal Exam: soft, normal bowel sounds, No tenderness, No guarding Rectal Exam: not done Extremity Exam: non-tender, normal range of motion, normal inspection, normal capillary refill, no calf tenderness, no pedal edema, pelvis stable Neurologic Exam: alert, oriented x 3, cooperative, 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 nml as tested, normal mood/affect, nml cerebellar function, nml station & gait, sensation nml Skin Exam: normal color, warm, dry Lymphatic Exam: No adenopathy SpO2 Interpretation: normal SpO2: 97 O2 Delivery: Nasal Cannula (3 L of oxygen) - Course Nursing assessment & vital signs reviewed: Yes Ordered Tests: Active Orders 24 hr Category Date Time Status Rn Medical Surgical STAT Care 08/06/23 11:38 Completed EKG-ER Only STAT Care 08/06/23 11:37 Active IV Insertion STAT Care 08/06/23 11:37 Active Oxygen-ED Only Nasal Cannula 3 lpm Care 08/06/23 11:37 Active CHEST 1 VIEW (PORTABLE) Stat Exams 08/06/23 11:38 Completed BLOOD CULTURE Stat Lab 08/06/23 13:05 Ordered CBC W DIFF Stat Lab 08/06/23 13:05 Completed CMP Stat Lab 08/06/23 13:05 Completed NT PRO BNPII Stat Lab 08/06/23 13:05 Completed TROPONIN Q4H Lab 08/06/23 13:05 Completed TROPONIN Q4H Lab 08/06/23 15:45 Ordered TROPONIN Q4H Lab 08/06/23 19:45 Ordered Respiratory Therapy Assessment DAILY RT 08/06/23 11:06 Active Medication Summary Discontinued Medications Generic Name Dose Route Start Last Admin Trade Name Freq PRN Reason Stop Dose Admin Albuterol/Ipratropium Confirm 08/06/23 10:33 Ipratropium/Albuterol Sulfate 3 Ml Ampul.Neb Administered 08/06/23 10:34 Dose 3 ml IH .STK-MED ONE Albuterol/Ipratropium 3 ml 08/06/23 10:30 08/06/23 10:30 Ipratropium/Albuterol Sulfate 3 Ml Ampul.Neb IH 08/06/23 10:31 3 ml STAT ONE Administration Methylprednisolone Sodium 0 mg 08/06/23 11:37 08/06/23 11:58 Succinate 125 mg/ Sterile IV 08/06/23 11:38 125 mg Water 2 ml STAT ONE Administration Methylprednisolone Sodium Succinate Confirm 08/06/23 11:46 Methylprednis Sod Succ 125 Mg/2 Ml Vial Administered 08/06/23 11:47 Dose 125 mg .ROUTE .STK-MED ONE Sterile Water Confirm 08/06/23 11:46 Water For Injection,Sterile 10 Ml Vial Administered 08/06/23 11:47 Dose 10 ml IJ .STK-MED ONE Lab/Rad Data: Laboratory Result Diagrams 08/06/23 13:05 08/06/23 13:05 Laboratory Results 08/06/23 08/06/23 08/06/23 Range/Units 13:20 13:05 13:05 WBC (4.0-10.5) x10^3/uL RBC (4.1-5.4) x10^6/uL Hgb (12.0-16.0) g/dL Hct (35-47) % MCV (78-100) fL MCH (26-32) pg MCHC (32-36) g/dL RDW (11.5-14.0) % Plt Count (150-450) x10^3/uL MPV (7.5-11.0) fL Gran % (36.0-66.0) % Immature Gran % (Auto) (0.00-0.4) % Nucleat RBC Rel Count (0.00-0.1) % Eos # (Auto) (0-0.5) x10^3/uL Immature Gran # (Auto) (0.00-0.03) x10^3u/L Absolute Lymphs (auto) (1.0-4.6) x10^3/uL Absolute Monos (auto) (0.0-1.3) x10^3/uL Absolute Nucleated RBC (0.00-0.01) x10^3u/L Lymphocytes % (24.0-44.0) % Monocytes % (0.0-12.0) % Eosinophils % (0.00-5.0) % Basophils % (0.0-0.4) % Absolute Granulocytes (1.4-6.9) x10^3/uL Basophils # (0-0.4) x10^3/uL Sodium (137-145) mmol/L Potassium (3.5-5.1) mmol/L Chloride (98-107) mmol/L Carbon Dioxide (22-30) mmol/L Anion Gap (5-15) MEQ/L BUN (7-17) mg/dL Creatinine (0.52-1.04) mg/dL Estimated GFR ML/MIN Glucose (74-106) mg/dL Calcium (8.4-10.2) mg/dL Total Bilirubin (0.2-1.3) mg/dL AST (14-36) U/L ALT (0-35) U/L Alkaline Phosphatase (38-126) U/L Troponin I < 0.012 (0.000-0.034) ng/mL NT-Pro-B Natriuret Pep 56.7 (<300) pg/mL Serum Total Protein (6.3-8.2) g/dL Albumin (3.5-5.0) g/dL Influenza Type A Ag NEGATIVE (NEGATIVE) Influenza Type B Ag NEGATIVE (NEGATIVE) RSV (PCR) NEGATIVE (NEGATIVE) SARS-CoV-2 (PCR) NEGATIVE (NEGATIVE) 08/06/23 08/06/23 Range/Units 13:05 13:05 WBC 7.3 (4.0-10.5) x10^3/uL RBC 4.59 (4.1-5.4) x10^6/uL Hgb 13.2 (12.0-16.0) g/dL Hct 41.3 (35-47) % MCV 90.0 (78-100) fL MCH 28.8 (26-32) pg MCHC 32.0 (32-36) g/dL RDW 13.8 (11.5-14.0) % Plt Count 229 (150-450) x10^3/uL MPV 9.5 (7.5-11.0) fL Gran % 56.7 (36.0-66.0) % Immature Gran % (Auto) 0.4 (0.00-0.4) % Nucleat RBC Rel Count 0.0 (0.00-0.1) % Eos # (Auto) 0.34 (0-0.5) x10^3/uL Immature Gran # (Auto) 0.03 (0.00-0.03) x10^3u/L Absolute Lymphs (auto) 2.07 (1.0-4.6) x10^3/uL Absolute Monos (auto) 0.66 (0.0-1.3) x10^3/uL Absolute Nucleated RBC 0.00 (0.00-0.01) x10^3u/L Lymphocytes % 28.5 (24.0-44.0) % Monocytes % 9.1 (0.0-12.0) % Eosinophils % 4.7 (0.00-5.0) % Basophils % 0.6 (0.0-0.4) % Absolute Granulocytes 4.13 (1.4-6.9) x10^3/uL Basophils # 0.04 (0-0.4) x10^3/uL Sodium 137 (137-145) mmol/L Potassium 4.1 (3.5-5.1) mmol/L Chloride 103 (98-107) mmol/L Carbon Dioxide 25 (22-30) mmol/L Anion Gap 12.8 (5-15) MEQ/L BUN 14 (7-17) mg/dL Creatinine 1.24 H (0.52-1.04) mg/dL Estimated GFR 45.5 ML/MIN Glucose 102 (74-106) mg/dL Calcium 9.1 (8.4-10.2) mg/dL Total Bilirubin 0.80 (0.2-1.3) mg/dL AST 21 (14-36) U/L ALT 16 (0-35) U/L Alkaline Phosphatase 105 (38-126) U/L Troponin I (0.000-0.034) ng/mL NT-Pro-B Natriuret Pep (<300) pg/mL Serum Total Protein 6.8 (6.3-8.2) g/dL Albumin 3.9 (3.5-5.0) g/dL Influenza Type A Ag (NEGATIVE) Influenza Type B Ag (NEGATIVE) RSV (PCR) (NEGATIVE) SARS-CoV-2 (PCR) (NEGATIVE) - Progress Progress: improved, re-examined Air Movement: fair Progress Note: 08/06/23 11:45 This patient's medical issue is 1 of moderate complexity. The level of complexity in the work-up performed is based on review of the patient's past medical history, review of the patient's medication list, review the patient's drug allergy list, history present illness and physical findings on examination. This patient work-up includes placement of intravenous line, RT evaluation with nebulizer treatment, 125 mg intravenous Solu-Medrol, CBC, CMP, BNP, troponin level, twelve-lead EKG and chest x-ray. 08/06/23 12:32 Chest x-ray was interpreted by the radiologist and I reviewed the impression. The chest x-ray shows chronic changes consistent with COPD and emphysema without evidence of any acute cardiopulmonary process. Blood Culture(s) Obtained: Yes Counseled pt/family regarding: lab results, diagnosis, need for follow-up, rad results Medical Desision Making - Independent Historian Additional History obtained from: Child - Diagnostic Testing Diagnostic test were ordered, analyzed, and reviewed by me: Yes Radiological Interpretation: Reviewed by me, Teleradiologist Report - Risk of complications The pt has a mod risk of morbidity or mortality based on: Need for prescription drug management - Departure Departure Disposition: Home Clinical Impression: COPD exacerbation Condition: Stable Critical Care Time: No Referrals: ALLYSON LOVING NP, RN [Primary Care Provider] - Follow up/PCP as directed Instructions: Chronic Obstructive Pulmonary Disease Additional Instructions: Drink plenty of fluids. Stop smoking. Take your steroids as prescribed. Call your prescribing provider today to make arranges for follow-up appointment in the next 2 to 3 days. Use your nebulizer treatments every 4 hours while awake. Prescriptions: Prednisone 10 mg [Deltasone 10 mg] 10 mg PO TID #12 tablet
[2023-08-06 11:11] VITALS: PULSE 89; RESP 18
[2023-08-06] MEDS ORDERED: solu-MEDROL 125 MG, Sterile H2O 10 ml 2 ML IV ONE ×2 (11:37)
[2023-08-06] MEDS ORDERED: solu-MEDROL ONE (11:46)
[2023-08-06] MEDS ORDERED: Sterile H2O 10 ml IJ ONE (11:46)
--- NOTE | 2023-08-06 12:08 | XRAY ---
Indication: Short of breath. COPD. Comparison: September 14, 2022 Portable chest again demonstrates COPD and chronic lung markings. No focal infiltrate, consolidation, or large effusion. Heart not enlarged again with arteriosclerotic aorta and left AICD. Bony thorax intact again with osteopenia and mild degenerative changes. Impression: Nonacute chest with chronic features.
[2023-08-06 13:20] LABS: Absolute Neutrophil Ct (ANC) 4.13 x10^3/uL (1.4-6.9); BASOPHIL % 0.6 % (0.0-0.4); Basophil (Absolute #) 0.04 x10^3/uL (0-0.4); Eosinophil % 4.7 % (0.00-5.0); Eosinophil (Absolute #) 0.34 x10^3/uL (0-0.5); Hematocrit 41.3 % (35-47); Hemoglobin 13.2 g/dL (12.0-16.0); IMMATURE GRAN # 0.03 x10^3u/L (0.00-0.03); IMMATURE GRAN % 0.4 % (0.00-0.4); Lymphocyte (Absolute #) 2.07 x10^3/uL (1.0-4.6); Lymphocytes % 28.5 % (24.0-44.0); Mean Corpuscular Hemoglobin 28.8 pg (26-32); Mean Platelet Volume 9.5 fL (7.5-11.0); Monocyte (Absolute #) 0.66 x10^3/uL (0.0-1.3); Monocytes % 9.1 % (0.0-12.0); Neutrophil % 56.7 % (36.0-66.0); Platelet Count 229 x10^3/uL (150-450); Red Blood Count 4.59 x10^6/uL (4.1-5.4); Red Cell Distribution Width 13.8 % (11.5-14.0); White Blood Count 7.3 x10^3/uL (4.0-10.5)
[2023-08-06 13:32] LABS: INFLUENZA A NEGATIVE (NEGATIVE); INFLUENZA B NEGATIVE (NEGATIVE); RESPIRATORY SYNCTIAL VIRUS NEGATIVE (NEGATIVE); SARS-CoV-2 Xpert Express NEGATIVE (NEGATIVE)
[2023-08-06 13:34] LABS: ALBUMIN 3.9 g/dL (3.5-5.0); ANION GAP 12.8 MEQ/L (5-15); BILIRUBIN,TOTAL 0.8 mg/dL (0.2-1.3); Calcium 9.1 mg/dL (8.4-10.2); Creatinine 1 1.24 mg/dL (0.52-1.04); EST GLOMERULAR FILTRATION RATE 45.5 ML/MIN; Potassium 4.1 mmol/L (3.5-5.1); Total Protein 6.8 g/dL (6.3-8.2)
[2023-08-06 13:58] VITALS: O2SAT 97
[2023-08-06 14:07] VITALS: BP 120/97
== END 2023-08-06 14:08 | disposition home or self-care (01) ==
LOC: ED 10:26
DX: J44.1 Chronic obstructive pulmonary disease with (acute) exacerbation (principal); R06.02 Shortness of breath; E78.5 Hyperlipidemia, unspecified; I11.0 Hypertensive heart disease with heart failure; I50.9 Heart failure, unspecified; E11.9 Type 2 diabetes mellitus without complications; Z79.52 Long term (current) use of systemic steroids; Z79.84 Long term (current) use of oral hypoglycemic drugs; Z79.891 Long term (current) use of opiate analgesic; Z79.899 Other long term (current) drug therapy; Z72.0 Tobacco use; Z20.828 Contact with and (suspected) exposure to other viral communicable diseases
CPT/HCPCS: 0241U; 36000; 36415; 71045; 80053; 83880; 84484; 85025; 87040; 93005; 93041; 94640; 96374; 99284; J2930; A9270-GY

== ENCOUNTER 2023-09-14 19:13 | Emergency (ER) | payer MEDICARE ==
[2023-09-14 19:37] VITALS: TEMP 98.3
[2023-09-14 19:52] LABS: Absolute Neutrophil Ct (ANC) 3.33 x10^3/uL (1.4-6.9); BASOPHIL % 0.3 % (0.0-0.4); Basophil (Absolute #) 0.02 x10^3/uL (0-0.4); Eosinophil % 5.7 % (0.00-5.0); Eosinophil (Absolute #) 0.34 x10^3/uL (0-0.5); Hematocrit 40.3 % (35-47); Hemoglobin 12.5 g/dL (12.0-16.0); IMMATURE GRAN # 0.04 x10^3u/L (0.00-0.03); IMMATURE GRAN % 0.7 % (0.00-0.4); Lymphocyte (Absolute #) 1.77 x10^3/uL (1.0-4.6); Lymphocytes % 29.5 % (24.0-44.0); Mean Cell Volume 93.1 fL (78-100); Mean Corpuscular Hemoglobin 28.9 pg (26-32); Monocyte (Absolute #) 0.51 x10^3/uL (0.0-1.3); Monocytes % 8.5 % (0.0-12.0); Neutrophil % 55.3 % (36.0-66.0); Platelet Count 234 x10^3/uL (150-450); Red Blood Count 4.33 x10^6/uL (4.1-5.4); Red Cell Distribution Width 13.9 % (11.5-14.0)
[2023-09-14] MEDS ORDERED: solu-MEDROL 125 MG, Sterile H2O 10 ml 2 ML IV ONE ×2 (19:56)
[2023-09-14] MEDS ORDERED: DUONEB 0.5-3 MG/3 ml Neb IH ONE ×2 (19:56→20:18)
[2023-09-14] MEDS ORDERED: Sterile H2O 10 ml IJ ONE (19:59)
[2023-09-14] MEDS ORDERED: solu-MEDROL ONE (19:59)
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
--- NOTE | 2023-09-14 20:11 | XRAY ---
Indication: Chest pain and short of breath. Comparison: August 06, 2023 Portable chest again demonstrates COPD and chronic lung markings. No focal infiltrate, consolidation, or large effusion. Heart not enlarged again with left dual-lead pacemaker. Bony thorax intact again with osteopenia and mild degenerative changes. Impression: Continued nonacute chest with chronic features.
[2023-09-14 20:12] LABS: BILIRUBIN,TOTAL 0.3 mg/dL (0.2-1.3); Calcium 9.1 mg/dL (8.4-10.2); Creatinine 1 1.15 mg/dL (0.52-1.04); EST GLOMERULAR FILTRATION RATE 51.3 ML/MIN; Potassium 4.2 mmol/L (3.5-5.1); Total Protein 7.2 g/dL (6.3-8.2)
[2023-09-14] MEDS ORDERED: Vibramycin 100 MG PO ONE (21:17)
[2023-09-14] MEDS ORDERED: Vibramycin 100 MG ONE (21:21)
[2023-09-14 21:40] VITALS: O2SAT 91
[2023-09-14 21:57] VITALS: BP 128/99; PULSE 88; RESP 20
== END 2023-09-14 22:03 | disposition home or self-care (01) ==
LOC: ED 19:13
DX: J44.1 Chronic obstructive pulmonary disease with (acute) exacerbation (principal); R07.9 Chest pain, unspecified; R06.02 Shortness of breath; R05.1 Acute cough; E78.5 Hyperlipidemia, unspecified; I10 Essential (primary) hypertension; Z79.52 Long term (current) use of systemic steroids; Z79.899 Other long term (current) drug therapy; Z72.0 Tobacco use; Z99.81 Dependence on supplemental oxygen
CPT/HCPCS: 36000; 36415; 71045; 80053; 83605; 83735; 83880; 84484; 85025; 87040; 93005; 93041; 94640; 96374; 99284; J2930; A9270-GY

== ENCOUNTER 2024-04-06 15:42 | Emergency (ER) | payer MEDICARE ==
[2024-04-06 16:00] VITALS: TEMP 97.3
[2024-04-06] MEDS ORDERED: DUONEB 0.5-3 MG/3 ml Neb IH ONE (16:11)
[2024-04-06] MEDS: DUONEB 0.5-3 MG/3 ml Neb IH ONE (16:19)
[2024-04-06 16:21] LABS: Absolute Neutrophil Ct (ANC) 7.06 x10^3/uL (1.4-6.9); BASOPHIL % 0.4 % (0.0-0.4); Basophil (Absolute #) 0.04 x10^3/uL (0-0.4); Eosinophil % 2.2 % (0.00-5.0); Eosinophil (Absolute #) 0.22 x10^3/uL (0-0.5); Hematocrit 39.2 % (35-47); Hemoglobin 12.9 g/dL (12.0-16.0); IMMATURE GRAN # 0.04 x10^3u/L (0.00-0.03); IMMATURE GRAN % 0.4 % (0.00-0.4); Lymphocyte (Absolute #) 1.86 x10^3/uL (1.0-4.6); Lymphocytes % 18.6 % (24.0-44.0); Mean Cell Volume 87.7 fL (78-100); Mean Corpuscular Hemoglobin 28.9 pg (26-32); Mean Corpuscular Hgb Concent. 32.9 g/dL (32-36); Monocyte (Absolute #) 0.77 x10^3/uL (0.0-1.3); Monocytes % 7.7 % (0.0-12.0); Neutrophil % 70.7 % (36.0-66.0); Platelet Count 233 x10^3/uL (150-450); Red Blood Count 4.47 x10^6/uL (4.1-5.4)
[2024-04-06 16:23] VITALS: O2SAT 97
[2024-04-06 16:31] LABS: INR 0.91 (0.8-3.0); PTT 25.6 SECONDS (25.1-36.5)
--- NOTE | 2024-04-06 16:32 | XRAY ---
Indication: Short of breath. Cough. Wheezing. Comparison: September 14, 2023 Portable chest again demonstrates COPD and chronic lung markings. No focal infiltrate, consolidation, or large effusion. Heart not enlarged again with left dual-lead pacemaker. Bony thorax intact again with osteopenia and mild degenerative changes. Impression: Continued nonacute chest with chronic features.
[2024-04-06 16:39] LABS: ALBUMIN 3.8 g/dL (3.5-5.0); ANION GAP 9.3 MEQ/L (5-15); BILIRUBIN,TOTAL 0.6 mg/dL (0.2-1.3); Calcium 9.2 mg/dL (8.4-10.2); Creatinine 1 1.29 mg/dL (0.52-1.04); EST GLOMERULAR FILTRATION RATE 44.4 ML/MIN; MAGNESIUM 1.8 mg/dL (1.6-2.3); Total Protein 6.9 g/dL (6.3-8.2)
[2024-04-06] MEDS ORDERED: Sterile H2O 10 ml IJ ONE (16:48)
[2024-04-06] MEDS ORDERED: solu-MEDROL ONE (16:48)
[2024-04-06] MEDS ORDERED: ROCEPHIN 1 GM / 100 ML NaCl 1 GM/100 ML IVPB IV ONE (16:49)
[2024-04-06] MEDS ORDERED: Sodium Chloride 0.9% 1000 ML 1,000 ML ONE (16:49)
[2024-04-06] MEDS: solu-MEDROL 125 MG, Sterile H2O 10 ml 2 ML IV ONE (16:51)
[2024-04-06] MEDS: Sodium Chloride 0.9% 1000 ML 1,000 ML IV SCH (16:51)
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
[2024-04-06 17:02] LABS: INFLUENZA A NEGATIVE (NEGATIVE); INFLUENZA B NEGATIVE (NEGATIVE); RESPIRATORY SYNCTIAL VIRUS NEGATIVE (NEGATIVE); SARS-CoV-2 Xpert Express NEGATIVE (NEGATIVE)
[2024-04-06] MEDS: ROCEPHIN 1 GM / 100 ML NaCl 1 GM/100 ML IVPB IV ONE (17:02)
[2024-04-06 17:51] VITALS: BP 148/92; PULSE 103; RESP 20
== END 2024-04-06 18:00 | disposition home or self-care (01) ==
LOC: ED 15:42
DX: J44.1 Chronic obstructive pulmonary disease with (acute) exacerbation (principal); R06.02 Shortness of breath; R05.1 Acute cough; R07.9 Chest pain, unspecified; I11.0 Hypertensive heart disease with heart failure; I50.9 Heart failure, unspecified; E78.5 Hyperlipidemia, unspecified; Z79.84 Long term (current) use of oral hypoglycemic drugs; Z79.891 Long term (current) use of opiate analgesic; Z79.52 Long term (current) use of systemic steroids; Z79.899 Other long term (current) drug therapy; Z72.0 Tobacco use; Z99.81 Dependence on supplemental oxygen
CPT/HCPCS: 0241U; 36000; 36415; 71045; 80053; 83605; 83735; 83880; 84484; 85025; 85610; 85730; 93005; 94640; 96365; 96374; 99284; J0696; J2919; A9270-GY

== ENCOUNTER 2024-06-01 09:25 | Day surgery (SDC) | payer MEDICARE ==
--- NOTE | 2024-06-01 08:35 | HP ---
HISTORY OF PRESENT ILLNESS: A 69-year-old, increased dysphagia of her esophagus, had dilatation more than 1 year ago. PAST MEDICAL HISTORY: She has dysrhythmia, hypertension, reflux, hyperlipidemia, aortic aneurysm, type 2 diabetes, had some COPD, history of CHF, and arthritis in the past. MEDICATIONS: Metoprolol, prednisolone, ranolazine, ipratropium, tramadol, albuterol nebulizer, atorvastatin, Trelegy Ellipta, Entresto, amlodipine, Farxiga, aspirin, clonidine, omeprazole, carvedilol, famotidine. ALLERGIES: No known drug allergies. PAST SURGICAL HISTORY: Endoscopy in the past, had pelvic fracture repaired in the past, lap fabricio in the past, hysterectomy in the past. SOCIAL HISTORY: Half pack per day smoker. No alcohol abuse. FAMILY HISTORY: Negative for esophageal cancer. Lymphoma and other types of cancer. REVIEW OF SYSTEMS: Twelve systems reviewed. Pertinent for multiple medical problems as noted above. Otherwise negative or noncontributory as above and per preadmission assessment and history and physical. PHYSICAL EXAMINATION: VITAL SIGNS: Height 5 feet 7 inches. BMI 31.3. GENERAL: No acute distress. HEENT: Sclerae nonicteric. NECK: No JVD. CHEST: Equal excursion, nonlabored breathing. CARDIOVASCULAR: Regular rate and rhythm. ABDOMEN: Soft. EXTREMITIES: No cyanosis or edema. NEUROLOGIC: Alert and oriented, moving all extremities symmetrically. PSYCHIATRIC: Appropriate mood and affect. SKIN: Dry. IMPRESSION: Dysphagia, needs EGD with possible biopsy, possible dilatation. Showed her the risk sheet. Explained the risks in detail including but not limited to bleeding or infection; risk of bowel injury or perforation possibly requiring open procedure or transfer for stent placement; general risk of anesthesia; DVT; risk of aspiration but not limited to possibility the swallowing improves with dilatation performed, may need repeat again down the road. Possibility that she could have more of a neurological or functional problem and dilatation may not improve the swallowing. May need further workup, esophagram, or other studies or referrals or even other types of dilator. She understands and agreed with the planned procedure. We will proceed with EGD, possible biopsy, possible dilatation as an outpatient. Otherwise, continue medications and home O2 for COPD as well as continue the medications for hypertension, diabetes, lipids, reflux and heart disease. Hold blood thinners preop.
[2024-06-01] MEDS: Lactated Ringers 1,000 ML IV SCH (10:30)
[2024-06-01 10:55] VITALS: RESP 16
[2024-06-01] MEDS ORDERED: DIPRIVAN 200 MG/20 ML IV ONE (11:27)
[2024-06-01 12:23] VITALS: TEMP 97.8; O2SAT 97
[2024-06-01 12:27] VITALS: BP 148/88; PULSE 78
--- NOTE | 2024-06-03 09:18 | OP ---
SURGERY DATE/TIME: 06/01/2024 1130 - 1146 PREOPERATIVE DIAGNOSIS: Dysphagia upper esophagus. POSTOPERATIVE DIAGNOSES: 1) Mild gastritis. 2) Proximal esophageal narrowing and spasm. PROCEDURE: 1) Esophagogastroduodenoscopy with cold biopsy antrum for H. pylori. 2) Cold biopsy in distal esophagus to evaluate for early inflammation. 3) Proximal esophageal balloon dilatation (size 20 balloon). SURGEON: Bhupinder Peterson MD ANESTHESIA: MAC. ASA class 3. ESTIMATED BLOOD LOSS: Minimal. INDICATIONS: As noted above. Consent was obtained. DESCRIPTION OF PROCEDURE AND FINDINGS: Patient was taken to the operating room. MAC anesthesia was induced. After official time-out and no disagreement in planned procedure, bite block positioned. Videogastroscope easily passed down the oropharynx. Proximal esophagus had some spasm and narrowing. There was no obvious mass or lesion to biopsy, but given her symptoms in that area, it was felt it warranted dilatation. The scope was passed back down through the GE junction to the junction of the third and fourth portions of the duodenum. Duodenum grossly unremarkable. Back in the stomach, she did have some evidence of some mild gastritis. Cold biopsy was taken to evaluate for H. pylori. Good hemostasis noted. On retroflex, there were no signs of any ulcers. She did have a little bit of liquidy food debris in the stomach. This slightly limited exam. Otherwise, there were no signs of any large polyps, masses, or obstructing lesions. No visible ulcers. The scope was pulled back. GE junction was about 40 cm. Just a slight bit of pinkness in the distal esophagus, but easily passed the scope through. Cold biopsy was taken to evaluate for some early inflammation. There were no signs of any erosions or Marquez's or masses in this area. Good hemostasis was noted at the biopsy site. The remainder of the esophageal mucosa was grossly unremarkable up to the proximal esophageal narrowed area. There were no signs of any lesions or masses to biopsy but given her symptoms there, it was felt it warranted dilatation. The scope was passed back down into the stomach. A 20 balloon catheter was carefully passed in the stomach and then pulled back up to the proximal esophageal narrowed area. It was then carefully inflated first stage for about 15 to 30 seconds, second stage for 30 seconds, final stage size 20 balloon dilator. It was left up for 2 minutes. The balloon catheter was then decompressed and withdrawn. Scope was seen to more easily pass through this area post dilatation. There were no signs of any full-thickness issues or injury secondary to dilatation. Scope was withdrawn. The patient tolerated procedure well. There were no immediate complications. There was no family here to discuss any findings. We will see her back in the office next week.
== END 2024-06-01 12:30 | disposition home or self-care (01) ==
LOC: SDC 09:25
PROVIDERS: ATTEND Surgery
DX: K29.70 Gastritis, unspecified, without bleeding (principal); R13.10 Dysphagia, unspecified; K22.2 Esophageal obstruction; Z80.8 Family history of malignant neoplasm of other organs or systems
CPT/HCPCS: C1726; J2704

== ENCOUNTER 2024-10-02 11:06 | Observation (INO) | payer MEDICARE ==
[2024-10-02] MEDS ORDERED: DUONEB 0.5-3 MG/3 ml Neb IH ONE (11:07)
[2024-10-02] MEDS: DUONEB 0.5-3 MG/3 ml Neb IH ONE (11:10)
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
[2024-10-02] MEDS ORDERED: Sterile H2O 10 ml IJ ONE (11:37)
[2024-10-02] MEDS ORDERED: Magnesium 1 Gm / 100 Ml D5W*** 100 ML IV ONE ×2 (11:38→12:31)
[2024-10-02] MEDS ORDERED: solu-MEDROL ONE (11:38)
[2024-10-02] MEDS ORDERED: ROCEPHIN 1 GM / 100 ML NaCl 1 GM/100 ML IVPB IV ONE (11:38)
[2024-10-02 11:40] LABS: A-aADO2 183; ABG HEMOGLOBIN 13.1; ABG POTASSIUM 4.1 (3.5-5.1); ABG SITE RIGHT RADIAL; ALLEN TEST OK? YES; ARTERIAL BLD GAS O2 SATURATION 97.5 % (95-100); ARTERIAL BLOOD GAS BASE EXCESS -0.6 (-2.0-2.0); ARTERIAL BLOOD GAS FIO2 50 %; ARTERIAL BLOOD GAS PCO2 62 mmHg (35-45); ARTERIAL BLOOD GAS PO2 96 mmHg (75-100); ARTERIAL BLOOD GAS pH 7.26 (7.35-7.45); CARBOXYHEMOGLOBIN 2.9 % THgb (0.0-6.9); HCO3- 27.8 (22-28); HGB O2 SAT 94.5 g/dF (94-100); Methhemoglobin 0.3 % (1.4-1.5); paO2 pAO1 0.34
[2024-10-02] MEDS: solu-MEDROL 125 MG, Sterile H2O 10 ml 2 ML IV ONE (11:43)
[2024-10-02] MEDS: Magnesium 1 Gm / 100 Ml D5W*** 100 ML IV SCH (11:45)
[2024-10-02] MEDS: ROCEPHIN 1 GM / 100 ML NaCl 1 GM/100 ML IVPB IV ONE (11:45)
[2024-10-02] MEDS ORDERED: Lasix 20 MG/2 ML ONE (11:49)
[2024-10-02] MEDS: Lasix 20 MG/2 ML IV ONE (11:53)
[2024-10-02 12:03] LABS: Absolute Neutrophil Ct (ANC) 7.76 x10^3/uL (1.56-6.13); BASOPHIL % 0.2 % (0.1-1.2); Basophil (Absolute #) 0.02 x10^3/uL (0.01-0.08); Eosinophil % 0.2 % (0.7-5.8); Eosinophil (Absolute #) 0.02 x10^3/uL (0.04-0.36); Hematocrit 38.8 % (34.1-44.9); Hemoglobin 12.1 g/dL (11.2-15.7); IMMATURE GRAN # 0.04 x10^3u/L (0.001-0.031); IMMATURE GRAN % 0.4 % (0.001-0.429); Lymphocytes % 13.5 % (19.3-51.7); Mean Cell Volume 89.4 fL (79.4-94.8); Mean Corpuscular Hemoglobin 27.9 pg (25.6-32.2); Mean Corpuscular Hgb Concent. 31.2 g/dL (32.2-35.5); Mean Platelet Volume 10.5 fL (9.4-12.3); Monocyte (Absolute #) 0.52 x10^3/uL (0.24-0.86); Monocytes % 5.4 % (4.7-12.5); Neutrophil % 80.3 % (34.0-71.1); Platelet Count 252 x10^3/uL (182-369); Red Blood Count 4.34 x10^6/uL (3.93-5.22); White Blood Count 9.7 x10^3/uL (3.98-10.04)
--- NOTE | 2024-10-02 12:12 | XRAY ---
Indication: Short of breath. Comparison: July 16, 2024 Portable chest demonstrates developing cardiomegaly, vascular congestion, pulmonary edema, and small bibasilar effusions favoring cardiac decompensation/CHF. Superimposed pneumonia not completely excluded. Bony thorax intact again with osteopenia, degenerative changes, and left pacemaker.
[2024-10-02 12:33] LABS: ALBUMIN 3.8 g/dL (3.5-5.0); ANION GAP 11.1 MEQ/L (5-15); BILIRUBIN,TOTAL 0.7 mg/dL (0.2-1.3); Calcium 9.2 mg/dL (8.4-10.2); Creatinine 1 1.04 mg/dL (0.52-1.04); EST GLOMERULAR FILTRATION RATE 57.5 ML/MIN; Potassium 3.8 mmol/L (3.5-5.1); Total Protein 6.7 g/dL (6.3-8.2)
[2024-10-02 12:44] LABS: INFLUENZA A NEGATIVE (NEGATIVE); INFLUENZA B NEGATIVE (NEGATIVE); RESPIRATORY SYNCTIAL VIRUS NEGATIVE (NEGATIVE); SARS-CoV-2 Xpert Express NEGATIVE (NEGATIVE)
[2024-10-02 13:10] LABS: Appearance Clear (Clear); Bacteria None Seen /HPF (None Seen); Bilirubin Negative (Negative); Blood Negative (Negative); Epithelial Cells None Seen /HPF (None Seen); Glucose, Urine Negative (Negative); Hyaline Casts NONE SEEN /LPF (0-2); Ketones Negative (Negative); Leukocyte Esterase Negative (Negative); Nitrite Negative (Negative); Protein,Urine Dip Negative (Negative); RBC 0-2 /HPF (0-5); Specific Gravity <=1.005 (1.005-1.030); Urobilinogen 0.2 mg/dL (0.2); WBC 0-2 /HPF (0-5)
--- NOTE | 2024-10-02 14:10 | XRAY ---
Indication: Short of breath. Elevated d-dimer. Multiple contiguous axial images obtained through the chest using 80 cc of Isovue-370 contrast and PE protocol. Comparison: September 14, 2022 Good opacification pulmonary arteries to include the lobar and segmental branches. Mild diffuse respiration artifact limits evaluation of more distal lobar and segmental branches. No obvious pulmonary embolus. Heart remains enlarged with left dual-lead pacemaker. Aorta remains mildly arteriosclerotic without aneurysm/dissection. Stable tiny right hilar calcified nodes. No pathologic mediastinal/hilar lymphadenopathy. Lungs demonstrates new pulmonary edema with small bilateral effusions and mild bibasilar compressive atelectasis. Remaining lungs again demonstrates pulmonary emphysema with scattered fibrosis/scarring. Bony thorax intact again with osteopenia and mild degenerative changes throughout spine. Limited upper abdomen again demonstrates incidental splenic calcified granulomas and cholecystectomy clips. Impression: 1. Respiration artifact limits evaluation for pulmonary embolus. Again no obvious pulmonary embolus. 2. Again cardiomegaly with new pulmonary edema and bibasilar effusions. Rule out cardiac decompensation/CHF. 3. Chronic findings including pulmonary emphysema, fibrosis/scarring, arteriosclerotic disease, chronic bony findings, and old granulomatous disease.
--- NOTE | 2024-10-02 15:43 | PCM.HP ---
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 (14-36) U/L ALT (0-35) U/L Alkaline Phosphatase (38-126) U/L Troponin I (0.000-0.033) ng/mL NT-Pro-B Natriuret Pep (<300) pg/mL Serum Total Protein (6.3-8.2) g/dL Albumin (3.5-5.0) g/dL Urine Color Yellow (Yellow) Urine Appearance Clear (Clear) Urine pH 5.0 (4.6-8.0) Ur Specific [place] <=1.005 (1.005-1.030) Urine Protein Negative (Negative) Urine Glucose (UA) Negative (Negative) mg/dL Urine Ketones Negative (Negative) Urine Blood Negative (Negative) Urine Nitrite Negative (Negative) Urine Bilirubin Negative (Negative) Urine Urobilinogen 0.2 (0.2) mg/dL Ur Leukocyte Esterase Negative (Negative) U Hyaline Cast (Auto) NONE SEEN (0-2) /LPF Urine Microscopic RBC 0-2 (0-5) /HPF Urine Microscopic WBC 0-2 (0-5) /HPF Ur Epithelial Cells None Seen (None Seen) /HPF Urine Bacteria None Seen (None Seen) /HPF Urine Culture Reflexed NO (NO) Influenza Type A Ag NEGATIVE (NEGATIVE) Influenza Type B Ag NEGATIVE (NEGATIVE) RSV (PCR) NEGATIVE (NEGATIVE) SARS-CoV-2 (PCR) NEGATIVE (NEGATIVE) Group A Strep Antibody NOT DETECTED (NEGATIVE) 10/02/24 10/02/24 Range/Units 13:42 15:28 WBC (3.98-10.04) x10^3/uL RBC (3.93-5.22) x10^6/uL Hgb (11.2-15.7) g/dL Hct (34.1-44.9) % MCV (79.4-94.8) fL MCH (25.6-32.2) pg MCHC (32.2-35.5) g/dL RDW (11.7-14.4) % Plt Count (182-369) x10^3/uL MPV (9.4-12.3) fL Gran % (34.0-71.1) % Immature Gran % (Auto) (0.001-0.429) % Nucleat RBC Rel Count (0.00-0.2) % Eos # (Auto) (0.04-0.36) x10^3/uL Immature Gran # (Auto) (0.001-0.031) x10^3u/L Absolute Lymphs (auto) (1.18-3.74) x10^3/uL Absolute Monos (auto) (0.24-0.86) x10^3/uL Absolute Nucleated RBC (0.00-0.012) x10^3u/L Lymphocytes % (19.3-51.7) % Monocytes % (4.7-12.5) % Eosinophils % (0.7-5.8) % Basophils % (0.1-1.2) % Absolute Granulocytes (1.56-6.13) x10^3/uL Basophils # (0.01-0.08) x10^3/uL D-Dimer (0.0-0.50) mg/L Puncture Site pCO2 (35-45) mmHg pO2 (75-100) mmHg Base Excess (-2.0-2.0) O2 Saturation (94-100) g/dF ABG pH (7.35-7.45) ABG HCO3 (22-28) ABG O2 Sat (Measured) (95-100) % Hiro Test A-a Gradient a/A Ratio Hemoglobin Carboxyhemoglobin (0.0-6.9) % THgb Methemoglobin (1.4-1.5) % Potassium (3.5-5.1) Temperature C POC O2 Flow Rate % Sodium (135-145) mmol/L Chloride (98-107) mmol/L Carbon Dioxide (22-30) mmol/L Anion Gap (5-15) MEQ/L BUN (7-17) mg/dL Creatinine (0.52-1.04) mg/dL Estimated GFR ML/MIN Glucose (74-106) mg/dL Lactic Acid 1.5 (0.4-2.0) Calcium (8.4-10.2) mg/dL Total Bilirubin (0.2-1.3) mg/dL AST (14-36) U/L ALT (0-35) U/L Alkaline Phosphatase (38-126) U/L Troponin I 0.032 (0.000-0.033) ng/mL NT-Pro-B Natriuret Pep (<300) pg/mL Serum Total Protein (6.3-8.2) g/dL Albumin (3.5-5.0) g/dL Urine Color (Yellow) Urine Appearance (Clear) Urine pH (4.6-8.0) Ur Specific [place] (1.005-1.030) Urine Protein (Negative) Urine Glucose (UA) (Negative) mg/dL Urine Ketones (Negative) Urine Blood (Negative) Urine Nitrite (Negative) Urine Bilirubin (Negative) Urine Urobilinogen (0.2) mg/dL Ur Leukocyte Esterase (Negative) U Hyaline Cast (Auto) (0-2) /LPF Urine Microscopic RBC (0-5) /HPF Urine Microscopic WBC (0-5) /HPF Ur Epithelial Cells (None Seen) /HPF Urine Bacteria (None Seen) /HPF Urine Culture Reflexed (NO) Influenza Type A Ag (NEGATIVE) Influenza Type B Ag (NEGATIVE) RSV (PCR) (NEGATIVE) SARS-CoV-2 (PCR) (NEGATIVE) Group A Strep Antibody (NEGATIVE) - Radiology Impressions Radiology Exams & Impressions: Radiology Procedures Category Date Time Status CHEST 1 VIEW (PORTABLE) Stat Exams 10/02/24 11:22 Completed CHEST WITH CONTRAST [CT] Stat Exams 10/02/24 12:37 Completed - Other Procedures and Tests Respiratory Therapy 10/02/24 11:27 Respiratory Therapy Assessment DAILY 10/02/24 15:11 Oxygen Nasal Cannula 3 lpm Telemedicine Encounter - Telemedicine Encounter Telemedicine Encounter: "The entirety of this encounter was performed via Telemedicine" This visit was performed using real-time audio and video connection between my location and thepatients locationwith the assistance of a surrogateat the patients location. Written or verbal consent was obtained from the patient/guardian to perform this visit using[facility] [employer] technology. Any patient questions regarding the telemedicine interaction were answered. JOY Encounter - JOY Encounter Attestation JOY Encounter Attestation: "LISA Cannon andhavediscussed pertinent aspects of their care with Zuleima Sanchez agree with the history, physical exam (any modifications based on my personal exam will be noted below), assessment, and plan as outlined in original note. Please see immediately below for my summary of findings and additional assessment and plan along with any meaningful corrections/explanations to the Subjective/Objective portions of the JOY note will be noted." My portion of the encounter took place via telemedicine. -Patient is an active smoker, h/o COPD on 3L nasal oxygen at baseline, h/o systolic heart failure with EF of 27% presenting with COPD and CHF exacerbation. Improved after bipap in the ER. Admit for IV steroids, IV diuretics and frequent nebs. Possible discharge tomorrow
[2024-10-02] MEDS: DUONEB 0.5-3 MG/3 ml Neb IH SCH (15:49)
[2024-10-02] MEDS ORDERED: ULTRAM 50 MG PO PRN (16:06)
[2024-10-02] MEDS ORDERED: MEDICATION INTERVENTION MC SCH ×2 (16:15→16:30)
[2024-10-02] MEDS ORDERED: PROVENTIL 2.5 MG/3 ML NEB IH PRN (16:30)
[2024-10-02] MEDS: Zithromax 500 MG/ 250 ML NaCl Premix 500 MG/250 ML IVPB IV SCH (16:37)
[2024-10-02] MEDS: Imdur 30 MG PO SCH (16:39)
[2024-10-02] MEDS: Toprol Xl 50 MG PO SCH (16:39)
[2024-10-02] MEDS: Protonix 40MG Tablet PO SCH (16:39)
[2024-10-02] MEDS: ECOTRIN 81 MG PO SCH (16:39)
[2024-10-02] MEDS: NORVASC 5 MG PO SCH (16:39)
[2024-10-02] MEDS: ENOXAPARIN SODIUM SQ SCH (16:50)
[2024-10-02] MEDS: Aldactone 25 MG PO SCH (16:50)
[2024-10-02] MEDS: solu-MEDROL 40 MG, Sterile H2O 10 ml 1 ML IV SCH (21:05)
[2024-10-02] MEDS: ZOCOR 20MG PO SCH (21:06)
[2024-10-02] MEDS: Ranexa 500 MG PO SCH (21:06)
[2024-10-02] MEDS: Lasix 20 MG/2 ML IV SCH (21:06)
[2024-10-02] MEDS: ENTRESTO 49 MG-51 MG TABLET PO SCH (21:06)
[2024-10-02] MEDS: Pepcid 20 MG PO SCH (21:07)
[2024-10-03 07:26] VITALS: BP 120/69; PULSE 95; RESP 22; TEMP 97.3; O2SAT 94
[2024-10-03 09:21] LABS: Hematocrit 38.6 % (34.1-44.9); Hemoglobin 12.1 g/dL (11.2-15.7); Mean Cell Volume 87.9 fL (79.4-94.8); Mean Corpuscular Hemoglobin 27.6 pg (25.6-32.2); Mean Corpuscular Hgb Concent. 31.3 g/dL (32.2-35.5); Mean Platelet Volume 10.4 fL (9.4-12.3); Platelet Count 298 x10^3/uL (182-369); Red Blood Count 4.39 x10^6/uL (3.93-5.22); Red Cell Distribution Width 14.3 % (11.7-14.4); White Blood Count 9.5 x10^3/uL (3.98-10.04)
[2024-10-03 09:36] LABS: ALBUMIN 4.2 g/dL (3.5-5.0); ANION GAP 10.5 MEQ/L (5-15); BILIRUBIN,TOTAL 0.7 mg/dL (0.2-1.3); Calcium 9.5 mg/dL (8.4-10.2); Creatinine 1 1.3 mg/dL (0.52-1.04); MAGNESIUM 2.2 mg/dL (1.6-2.3); Potassium 4.3 mmol/L (3.5-5.1); Total Protein 7.4 g/dL (6.3-8.2)
[2024-10-03] MEDS ORDERED: NON-FORMULARY ITEM (Dapagliflozin Propanediol [Farxiga] 10 MG Tablet) PO SCH (10:00)
[2024-10-03] MEDS ORDERED: NON-FORMULARY ITEM (Fluticasone/Umeclidin/Vilanter [Trelegy Ellipta 200-62.5-25] 1 EACH Bl IH SCH (10:00)
[2024-10-03] MEDS ORDERED: Lasix 20 MG/2 ML IV SCH (10:00)
--- NOTE | 2024-10-03 10:02 | PCM.DS ---
Discharge Summary Date of Admission: 10/02/24 14:57 Date of Discharge: 10/03/24 Admitting Physician: DAI FRY MD Primary Care Provider: GIO ORTIZ DO Allergies Allergies No Known Drug Allergies Allergy (Verified 05/22/24 09:11) Hospital Summary - Hospital Course Hospital Course: 10/02/24 is a 69 year old female with PMHX of [place] (does not wear her hearing aides), migraines, cataracts, MS, pacemaker, hyperlipidemia, HTN, arrythmia, CHF, COPD (baseline O2 3lNC), OA, GERD, anxiety, and daily smoker. Pt was seen in the ER today as she developed SOB over the past 2 days that worsened. Sx increased with walking and improved with sitting but had continued SOB. In ER she had bilateral rales and wheezing with retractions and Bipap ordered. On admission extremities without edema. Wheezing throughout lung sounds and and diminished in the bases. She is already back on her baseline O2 of 3lNC on admission and off the bipap. In the ER she was given Lasix, duoneb, steriods, and ceftriaxone for COPD/ CHF exacerbation. Mg+ also replaced. D-Dimer elevated at 4.28, CT negative for PE but did show cardiomegaly, pulm edema, and small bilateral effusions. HR increased and pt reports she has not taken her BP meds for 2 days now. Will restart metoprolol now to get HR better controlled. Pt admits to smoking 1/2 ppd, and she is refusing a nicotine patch. She states she is already feeling better with meds and treatments in ER. If she continues to improve she may d/c tomorrow. 10/03/24 Pt resting in the chair. She states she feels fine today and is ready to d/c. She is on her baseline Oxygen of 3LNC at 95% O2. She continues to have slight wheezing throughout but she states she always has this and is a smoker. She does not want to stop smoking. Advised not to use oxygen and smoke due associated dangers. Will continue steroids and antibiotics OP. She denies CP, SOB, abd. pain, N/V/D. - Vitals & Intake/Output Vital Signs: Vital Signs Temperature 97.3 F 10/03/24 07:26 Pulse Rate 95 H 10/03/24 07:26 Respiratory Rate 22 10/03/24 07:26 Blood Pressure 120/69 10/03/24 07:26 O2 Sat by Pulse Oximetry 94 L 10/03/24 07:26 Intake & Output: Intake & Output 09/30/24 10/01/24 10/02/24 10/03/24 11:59 11:59 11:59 11:59 Intake Total 1410 Output Total 1800 Balance -390 Weight 98.1 kg 94.6 kg - Lab Result Diagrams: 10/03/24 09:23 10/02/24 11:50 Lab Results-Last 24 Hrs: Lab Results-Last 24 Hours 10/02/24 10/02/24 10/02/24 Range/Units 11:15 11:15 11:50 WBC 9.7 (3.98-10.04) x10^3/uL RBC 4.34 (3.93-5.22) x10^6/uL Hgb 12.1 (11.2-15.7) g/dL Hct 38.8 (34.1-44.9) % MCV 89.4 (79.4-94.8) fL MCH 27.9 (25.6-32.2) pg MCHC 31.2 L (32.2-35.5) g/dL RDW 14.0 (11.7-14.4) % Plt Count 252 (182-369) x10^3/uL MPV 10.5 (9.4-12.3) fL Gran % 80.3 H (34.0-71.1) % Immature Gran % (Auto) 0.4 (0.001-0.429) % Nucleat RBC Rel Count 0.0 (0.00-0.2) % Eos # (Auto) 0.02 L (0.04-0.36) x10^3/uL Immature Gran # (Auto) 0.04 H (0.001-0.031) x10^3u/L Absolute Lymphs (auto) 1.30 (1.18-3.74) x10^3/uL Absolute Monos (auto) 0.52 (0.24-0.86) x10^3/uL Absolute Nucleated RBC 0.00 (0.00-0.012) x10^3u/L Lymphocytes % 13.5 L (19.3-51.7) % Monocytes % 5.4 (4.7-12.5) % Eosinophils % 0.2 L (0.7-5.8) % Basophils % 0.2 (0.1-1.2) % Absolute Granulocytes 7.76 H (1.56-6.13) x10^3/uL Basophils # 0.02 (0.01-0.08) x10^3/uL D-Dimer (0.0-0.50) mg/L Puncture Site RIGHT RADIAL pCO2 62 H* (35-45) mmHg pO2 96 (75-100) mmHg Base Excess -0.6 (-2.0-2.0) O2 Saturation 94.5 (94-100) g/dF ABG pH 7.26 L (7.35-7.45) ABG HCO3 27.8 (22-28) ABG O2 Sat (Measured) 97.5 (95-100) % Hiro Test YES A-a Gradient 183 a/A Ratio 0.34 Hemoglobin 13.1 Carboxyhemoglobin 2.9 (0.0-6.9) % THgb Methemoglobin 0.3 L (1.4-1.5) % Potassium 4.1 (3.5-5.1) Temperature 37.0 C POC O2 Flow Rate 50 % Sodium (135-145) mmol/L Chloride (98-107) mmol/L Carbon Dioxide (22-30) mmol/L Anion Gap (5-15) MEQ/L BUN (7-17) mg/dL Creatinine (0.52-1.04) mg/dL Estimated GFR ML/MIN Glucose (74-106) mg/dL Lactic Acid 2.0 (0.4-2.0) Calcium (8.4-10.2) mg/dL Total Bilirubin (0.2-1.3) mg/dL AST (14-36) U/L ALT (0-35) U/L Alkaline Phosphatase (38-126) U/L Troponin I (0.000-0.033) ng/mL NT-Pro-B Natriuret Pep (<300) pg/mL Serum Total Protein (6.3-8.2) g/dL Albumin (3.5-5.0) g/dL Urine Color (Yellow) Urine Appearance (Clear) Urine pH (4.6-8.0) Ur Specific [place] (1.005-1.030) Urine Protein (Negative) Urine Glucose (UA) (Negative) mg/dL Urine Ketones (Negative) Urine Blood (Negative) Urine Nitrite (Negative) Urine Bilirubin (Negative) Urine Urobilinogen (0.2) mg/dL Ur Leukocyte Esterase (Negative) U Hyaline Cast (Auto) (0-2) /LPF Urine Microscopic RBC (0-5) /HPF Urine Microscopic WBC (0-5) /HPF Ur Epithelial Cells (None Seen) /HPF Urine Bacteria (None Seen) /HPF Urine Culture Reflexed (NO) Influenza Type A Ag (NEGATIVE) Influenza Type B Ag (NEGATIVE) RSV (PCR) (NEGATIVE) SARS-CoV-2 (PCR) (NEGATIVE) Group A Strep Antibody (NEGATIVE) 10/02/24 10/02/24 10/02/24 Range/Units 11:50 11:50 11:50 WBC (3.98-10.04) x10^3/uL RBC (3.93-5.22) x10^6/uL Hgb (11.2-15.7) g/dL Hct (34.1-44.9) % MCV (79.4-94.8) fL MCH (25.6-32.2) pg MCHC (32.2-35.5) g/dL RDW (11.7-14.4) % Plt Count (182-369) x10^3/uL MPV (9.4-12.3) fL Gran % (34.0-71.1) % Immature Gran % (Auto) (0.001-0.429) % Nucleat RBC Rel Count (0.00-0.2) % Eos # (Auto) (0.04-0.36) x10^3/uL Immature Gran # (Auto) (0.001-0.031) x10^3u/L Absolute Lymphs (auto) (1.18-3.74) x10^3/uL Absolute Monos (auto) (0.24-0.86) x10^3/uL Absolute Nucleated RBC (0.00-0.012) x10^3u/L Lymphocytes % (19.3-51.7) % Monocytes % (4.7-12.5) % Eosinophils % (0.7-5.8) % Basophils % (0.1-1.2) % Absolute Granulocytes (1.56-6.13) x10^3/uL Basophils # (0.01-0.08) x10^3/uL D-Dimer 4.28 H* (0.0-0.50) mg/L Puncture Site pCO2 (35-45) mmHg pO2 (75-100) mmHg Base Excess (-2.0-2.0) O2 Saturation (94-100) g/dF ABG pH (7.35-7.45) ABG HCO3 (22-28) ABG O2 Sat (Measured) (95-100) % Hiro Test A-a Gradient a/A Ratio Hemoglobin Carboxyhemoglobin (0.0-6.9) % THgb Methemoglobin (1.4-1.5) % Potassium 3.8 (3.5-5.1) Temperature C POC O2 Flow Rate % Sodium 138 (135-145) mmol/L Chloride 103 (98-107) mmol/L Carbon Dioxide 27 (22-30) mmol/L Anion Gap 11.1 (5-15) MEQ/L BUN 20 H (7-17) mg/dL Creatinine 1.04 (0.52-1.04) mg/dL Estimated GFR 57.5 ML/MIN Glucose 166 H (74-106) mg/dL Lactic Acid (0.4-2.0) Calcium 9.2 (8.4-10.2) mg/dL Total Bilirubin 0.70 (0.2-1.3) mg/dL AST 38 H (14-36) U/L ALT 47 H (0-35) U/L Alkaline Phosphatase 139 H (38-126) U/L Troponin I 0.021 (0.000-0.033) ng/mL NT-Pro-B Natriuret Pep 3860 (<300) pg/mL Serum Total Protein 6.7 (6.3-8.2) g/dL Albumin 3.8 (3.5-5.0) g/dL Urine Color (Yellow) Urine Appearance (Clear) Urine pH (4.6-8.0) Ur Specific [place] (1.005-1.030) Urine Protein (Negative) Urine Glucose (UA) (Negative) mg/dL Urine Ketones (Negative) Urine Blood (Negative) Urine Nitrite (Negative) Urine Bilirubin (Negative) Urine Urobilinogen (0.2) mg/dL Ur Leukocyte Esterase (Negative) U Hyaline Cast (Auto) (0-2) /LPF Urine Microscopic RBC (0-5) /HPF Urine Microscopic WBC (0-5) /HPF Ur Epithelial Cells (None Seen) /HPF Urine Bacteria (None Seen) /HPF Urine Culture Reflexed (NO) Influenza Type A Ag (NEGATIVE) Influenza Type B Ag (NEGATIVE) RSV (PCR) (NEGATIVE) SARS-CoV-2 (PCR) (NEGATIVE) Group A Strep Antibody (NEGATIVE) 10/02/24 10/02/24 10/02/24 Range/Units 11:55 11:55 12:58 WBC (3.98-10.04) x10^3/uL RBC (3.93-5.22) x10^6/uL Hgb (11.2-15.7) g/dL Hct (34.1-44.9) % MCV (79.4-94.8) fL MCH (25.6-32.2) pg MCHC (32.2-35.5) g/dL RDW (11.7-14.4) % Plt Count (182-369) x10^3/uL MPV (9.4-12.3) fL Gran % (34.0-71.1) % Immature Gran % (Auto) (0.001-0.429) % Nucleat RBC Rel Count (0.00-0.2) % Eos # (Auto) (0.04-0.36) x10^3/uL Immature Gran # (Auto) (0.001-0.031) x10^3u/L Absolute Lymphs (auto) (1.18-3.74) x10^3/uL Absolute Monos (auto) (0.24-0.86) x10^3/uL Absolute Nucleated RBC (0.00-0.012) x10^3u/L Lymphocytes % (19.3-51.7) % Monocytes % (4.7-12.5) % Eosinophils % (0.7-5.8) % Basophils % (0.1-1.2) % Absolute Granulocytes (1.56-6.13) x10^3/uL Basophils # (0.01-0.08) x10^3/uL D-Dimer (0.0-0.50) mg/L Puncture Site pCO2 (35-45) mmHg pO2 (75-100) mmHg Base Excess (-2.0-2.0) O2 Saturation (94-100) g/dF ABG pH (7.35-7.45) ABG HCO3 (22-28) ABG O2 Sat (Measured) (95-100) % Hiro Test A-a Gradient a/A Ratio Hemoglobin Carboxyhemoglobin (0.0-6.9) % THgb Methemoglobin (1.4-1.5) % Potassium (3.5-5.1) Temperature C POC O2 Flow Rate % Sodium (135-145) mmol/L Chloride (98-107) mmol/L Carbon Dioxide (22-30) mmol/L Anion Gap (5-15) MEQ/L BUN (7-17) mg/dL Creatinine (0.52-1.04) mg/dL Estimated GFR ML/MIN Glucose (74-106) mg/dL Lactic Acid (0.4-2.0) Calcium (8.4-10.2) mg/dL Total Bilirubin (0.2-1.3) mg/dL AST (14-36) U/L ALT (0-35) U/L Alkaline Phosphatase (38-126) U/L Troponin I (0.000-0.033) ng/mL NT-Pro-B Natriuret Pep (<300) pg/mL Serum Total Protein (6.3-8.2) g/dL Albumin (3.5-5.0) g/dL Urine Color Yellow (Yellow) Urine Appearance Clear (Clear) Urine pH 5.0 (4.6-8.0) Ur Specific [place] <=1.005 (1.005-1.030) Urine Protein Negative (Negative) Urine Glucose (UA) Negative (Negative) mg/dL Urine Ketones Negative (Negative) Urine Blood Negative (Negative) Urine Nitrite Negative (Negative) Urine Bilirubin Negative (Negative) Urine Urobilinogen 0.2 (0.2) mg/dL Ur Leukocyte Esterase Negative (Negative) U Hyaline Cast (Auto) NONE SEEN (0-2) /LPF Urine Microscopic RBC 0-2 (0-5) /HPF Urine Microscopic WBC 0-2 (0-5) /HPF Ur Epithelial Cells None Seen (None Seen) /HPF Urine Bacteria None Seen (None Seen) /HPF Urine Culture Reflexed NO (NO) Influenza Type A Ag NEGATIVE (NEGATIVE) Influenza Type B Ag NEGATIVE (NEGATIVE) RSV (PCR) NEGATIVE (NEGATIVE) SARS-CoV-2 (PCR) NEGATIVE (NEGATIVE) Group A Strep Antibody NOT DETECTED (NEGATIVE) 10/02/24 10/02/24 10/02/24 Range/Units 13:42 15:28 19:22 WBC (3.98-10.04) x10^3/uL RBC (3.93-5.22) x10^6/uL Hgb (11.2-15.7) g/dL Hct (34.1-44.9) % MCV (79.4-94.8) fL MCH (25.6-32.2) pg MCHC (32.2-35.5) g/dL RDW (11.7-14.4) % Plt Count (182-369) x10^3/uL MPV (9.4-12.3) fL Gran % (34.0-71.1) % Immature Gran % (Auto) (0.001-0.429) % Nucleat RBC Rel Count (0.00-0.2) % Eos # (Auto) (0.04-0.36) x10^3/uL Immature Gran # (Auto) (0.001-0.031) x10^3u/L Absolute Lymphs (auto) (1.18-3.74) x10^3/uL Absolute Monos (auto) (0.24-0.86) x10^3/uL Absolute Nucleated RBC (0.00-0.012) x10^3u/L Lymphocytes % (19.3-51.7) % Monocytes % (4.7-12.5) % Eosinophils % (0.7-5.8) % Basophils % (0.1-1.2) % Absolute Granulocytes (1.56-6.13) x10^3/uL Basophils # (0.01-0.08) x10^3/uL D-Dimer (0.0-0.50) mg/L Puncture Site pCO2 (35-45) mmHg pO2 (75-100) mmHg Base Excess (-2.0-2.0) O2 Saturation (94-100) g/dF ABG pH (7.35-7.45) ABG HCO3 (22-28) ABG O2 Sat (Measured) (95-100) % Hiro Test A-a Gradient a/A Ratio Hemoglobin Carboxyhemoglobin (0.0-6.9) % THgb Methemoglobin (1.4-1.5) % Potassium (3.5-5.1) Temperature C POC O2 Flow Rate % Sodium (135-145) mmol/L Chloride (98-107) mmol/L Carbon Dioxide (22-30) mmol/L Anion Gap (5-15) MEQ/L BUN (7-17) mg/dL Creatinine (0.52-1.04) mg/dL Estimated GFR ML/MIN Glucose (74-106) mg/dL Lactic Acid 1.5 (0.4-2.0) Calcium (8.4-10.2) mg/dL Total Bilirubin (0.2-1.3) mg/dL AST (14-36) U/L ALT (0-35) U/L Alkaline Phosphatase (38-126) U/L Troponin I 0.032 0.030 (0.000-0.033) ng/mL NT-Pro-B Natriuret Pep (<300) pg/mL Serum Total Protein (6.3-8.2) g/dL Albumin (3.5-5.0) g/dL Urine Color (Yellow) Urine Appearance (Clear) Urine pH (4.6-8.0) Ur Specific [place] (1.005-1.030) Urine Protein (Negative) Urine Glucose (UA) (Negative) mg/dL Urine Ketones (Negative) Urine Blood (Negative) Urine Nitrite (Negative) Urine Bilirubin (Negative) Urine Urobilinogen (0.2) mg/dL Ur Leukocyte Esterase (Negative) U Hyaline Cast (Auto) (0-2) /LPF Urine Microscopic RBC (0-5) /HPF Urine Microscopic WBC (0-5) /HPF Ur Epithelial Cells (None Seen) /HPF Urine Bacteria (None Seen) /HPF Urine Culture Reflexed (NO) Influenza Type A Ag (NEGATIVE) Influenza Type B Ag (NEGATIVE) RSV (PCR) (NEGATIVE) SARS-CoV-2 (PCR) (NEGATIVE) Group A Strep Antibody (NEGATIVE) 10/03/24 Range/Units 09:23 WBC 9.5 (3.98-10.04) x10^3/uL RBC 4.39 (3.93-5.22) x10^6/uL Hgb 12.1 (11.2-15.7) g/dL Hct 38.6 (34.1-44.9) % MCV 87.9 (79.4-94.8) fL MCH 27.6 (25.6-32.2) pg MCHC 31.3 L (32.2-35.5) g/dL RDW 14.3 (11.7-14.4) % Plt Count 298 (182-369) x10^3/uL MPV 10.4 (9.4-12.3) fL Gran % (34.0-71.1) % Immature Gran % (Auto) (0.001-0.429) % Nucleat RBC Rel Count (0.00-0.2) % Eos # (Auto) (0.04-0.36) x10^3/uL Immature Gran # (Auto) (0.001-0.031) x10^3u/L Absolute Lymphs (auto) (1.18-3.74) x10^3/uL Absolute Monos (auto) (0.24-0.86) x10^3/uL Absolute Nucleated RBC (0.00-0.012) x10^3u/L Lymphocytes % (19.3-51.7) % Monocytes % (4.7-12.5) % Eosinophils % (0.7-5.8) % Basophils % (0.1-1.2) % Absolute Granulocytes (1.56-6.13) x10^3/uL Basophils # (0.01-0.08) x10^3/uL D-Dimer (0.0-0.50) mg/L Puncture Site pCO2 (35-45) mmHg pO2 (75-100) mmHg Base Excess (-2.0-2.0) O2 Saturation (94-100) g/dF ABG pH (7.35-7.45) ABG HCO3 (22-28) ABG O2 Sat (Measured) (95-100) % Hiro Test A-a Gradient a/A Ratio Hemoglobin Carboxyhemoglobin (0.0-6.9) % THgb Methemoglobin (1.4-1.5) % Potassium (3.5-5.1) Temperature C POC O2 Flow Rate % Sodium (135-145) mmol/L Chloride (98-107) mmol/L Carbon Dioxide (22-30) mmol/L Anion Gap (5-15) MEQ/L BUN (7-17) mg/dL Creatinine (0.52-1.04) mg/dL Estimated GFR ML/MIN Glucose (74-106) mg/dL Lactic Acid (0.4-2.0) Calcium (8.4-10.2) mg/dL Total Bilirubin (0.2-1.3) mg/dL AST (14-36) U/L ALT (0-35) U/L Alkaline Phosphatase (38-126) U/L Troponin I (0.000-0.033) ng/mL NT-Pro-B Natriuret Pep (<300) pg/mL Serum Total Protein (6.3-8.2) g/dL Albumin (3.5-5.0) g/dL Urine Color (Yellow) Urine Appearance (Clear) Urine pH (4.6-8.0) Ur Specific [place] (1.005-1.030) Urine Protein (Negative) Urine Glucose (UA) (Negative) mg/dL Urine Ketones (Negative) Urine Blood (Negative) Urine Nitrite (Negative) Urine Bilirubin (Negative) Urine Urobilinogen (0.2) mg/dL Ur Leukocyte Esterase (Negative) U Hyaline Cast (Auto) (0-2) /LPF Urine Microscopic RBC (0-5) /HPF Urine Microscopic WBC (0-5) /HPF Ur Epithelial Cells (None Seen) /HPF Urine Bacteria (None Seen) /HPF Urine Culture Reflexed (NO) Influenza Type A Ag (NEGATIVE) Influenza Type B Ag (NEGATIVE) RSV (PCR) (NEGATIVE) SARS-CoV-2 (PCR) (NEGATIVE) Group A Strep Antibody (NEGATIVE) - Radiology Exams Ordered Rad Exams-Entire Visit: Radiology Procedures Category Date Time Status CHEST 1 VIEW (PORTABLE) Stat Exams 10/02/24 11:22 Completed CHEST WITH CONTRAST [CT] Stat Exams 10/02/24 12:37 Completed - Procedures and Test Procedures and Tests throughout Hospitalization: Therapy Orders & Screens 10/02/24 11:26 BiPap/CPAP STAT Comment: 10/02/24 11:27 BiPap/CPAP STAT Comment: Respiratory Therapy Assessment DAILY Comment: 10/02/24 14:58 Respiratory Therapy Consult ONCE Comment: Reason For Exam: 10/02/24 15:11 Oxygen Nasal Cannula 3 lpm Comment: 10/02/24 15:34 Smoking Cessation Education ONCE Comment: Diagnosis: CHF exacerbation Smoking Status: Current every day smoker How long have you smoked: 50+ Have you smoked in the past 12 months: Yes Approximately how many cigarettes per day: 1/2 pack daily Do you dip or chew tobacco: No 10/02/24 16:03 RT Miscellaneous Order ROUTINE Comment: Physician Instructions: Reason For Exam: eval and treat Diagnosis: CHF, COPD exacerbation Discharge Exam General Appearance: no apparent distress, alert, obese Neurologic Exam: alert, oriented x 3, cooperative, normal mood/affect, nml cerebellar function, sensation nml, No motor deficits Eye Exam: PERRL, EOMI, eyes nml inspection Ears, Nose, Throat Exam: normal ENT inspection, pharynx normal, moist mucous membranes Neck Exam: normal inspection, non-tender, supple, full range of motion Respiratory Exam: normal breath sounds, wheezing, No respiratory distress Cardiovascular Exam: regular rate/rhythm, normal heart sounds Gastrointestinal/Abdomen Exam: soft, No tenderness, No mass Pelvic Exam: deferred Rectal Exam: deferred Back Exam: normal inspection, normal range of motion, No CVA tenderness, No vertebral tenderness Extremity Exam: normal inspection, normal range of motion Skin Exam: normal color, warm, dry Wound Assessment: Skin/Wound Assessment Wound/Incision Assessment Start: 10/02/24 21:56 Text: Status: Active Freq: Q6H Protocol: Document 10/03/24 02:00 KD (Rec: 10/03/24 02:17 KD [id number]) Wound/Incision Assessment Right Lateral Breast Fold Wound Assessment Shift Assessment Wound Type Ga[place] Wound Stage Non Pressure Wound Drainage Amount None General Appearance Open to air,Reddened Wound Bed Greatest Portion Red (Granulation),Shiny Surrounding Tissue [place] Topical Solution/Irrigant Medicated Gel Wound Photo Photo Taken No Final Diagnosis/Problem List - Final Discharge Diagnosis/Problem (1) Acute exacerbation of chronic obstructive pulmonary disease (COPD) Current Visit: Yes Status: Acute Code(s): J44.1 - CHRONIC OBSTRUCTIVE PULMONARY DISEASE W (ACUTE) EXACERBATION (2) CHF exacerbation Current Visit: No Status: Acute Code(s): I50.9 - HEART FAILURE, UNSPECIFIED (3) D-dimer, elevated Current Visit: Yes Status: Acute Code(s): R79.89 - OTHER SPECIFIED ABNORMAL FINDINGS OF BLOOD CHEMISTRY (4) Obesity (BMI 30.0-34.9) Current Visit: Yes Status: Chronic Code(s): E66.811 - OBESITY, CLASS 1 (5) HTN (hypertension) Current Visit: Yes Status: Chronic Code(s): I10 - ESSENTIAL (PRIMARY) HYPERTENSION (6) Hyperlipidemia Current Visit: Yes Status: Chronic Assessment & Plan: (1) Acute exacerbation of chronic obstructive pulmonary disease (COPD) Current Visit: Yes Status: Acute Assessment & Plan: - Azithromycin IV - Solu-medrol IV BID - Continue Trelogy inhaler - RT eval and treat - Was placed on Bipap in ER- now on baseline 3lNC - CBC, CMP reviewed - CXR and CT chest reviewed 10/03 - sxs improved and continues to be on baseline 3lNC O2 94% - continued wheezing - pt wants to d/c home Code(s): J44.1 - CHRONIC OBSTRUCTIVE PULMONARY DISEASE W (ACUTE) EXACERBATION (2) CHF exacerbation Current Visit: No Status: Acute Qualifiers: Heart failure type: systolic Qualified Code(s): I50.23 - Acute on chronic systolic (congestive) heart failure Assessment & Plan: - Lasix IV BID daily - As seen in CXR and CT chest - BNP 3560 - On baseline 3lNC now - Tele - EKG - Continue home meds 10/03 - improved Code(s): I50.9 - HEART FAILURE, UNSPECIFIED (3) D-dimer, elevated Current Visit: Yes Status: Acute Assessment & Plan: - D-dimer 4.28 - CT negative for PE Code(s): R79.89 - OTHER SPECIFIED ABNORMAL FINDINGS OF BLOOD CHEMISTRY (4) Obesity (BMI 30.0-34.9) Current Visit: Yes Status: Chronic Assessment & Plan: - advised diet and exercise control Code(s): E66.811 - OBESITY, CLASS 1 (5) HTN (hypertension) Current Visit: Yes Status: Chronic Assessment & Plan: - restart home meds today - monitor BP/HR Code(s): I10 - ESSENTIAL (PRIMARY) HYPERTENSION (6) Hyperlipidemia Current Visit: Yes Status: Chronic Assessment & Plan: - Continue statin Code(s): E78.5 - HYPERLIPIDEMIA, UNSPECIFIED (7) CRF (chronic renal failure) Current Visit: Yes Status: Chronic Assessment & Plan: - At baseline renal function - F/U OP with PCP this week - Discharge Discharge Date: 10/03/24 Disposition: Home, Self-Care Condition: Good Prescriptions: Continue Albuterol 8 gm Mdi Hfa [Ventolin Hfa MDI] 2 puffs IH Q4H PRN PRN PRN Reason: Shortness Of Breath Atorvastatin Calcium [Lipitor] 40 mg PO HS Tramadol HCl 50 mg [Ultram 50 mg] 50 mg PO Q6HPRN PRN PRN Reason: Moderate To Severe Pain Dapagliflozin Propanediol [Farxiga] 10 mg PO DAILY Amlodipine Besylate [Norvasc] 2.5 mg PO DAILY Ranolazine 500 MG [Ranexa 500 MG] 1,000 mg PO BID Aspirin 81 gm Chew [Baby Aspirin 81 mg Chew] 81 mg PO DAILY #0 Albuterol 2.5 mg/3 ml Neb [Proventil 2.5 mg/3 ml Neb] 2.5 mg IH TIDPRN Sacubitril/Valsartan [Entresto 97 mg-103 mg Tablet] 1 each PO BID Fluticasone/Umeclidin/Vilanter [Trelegy Ellipta 200-62.5-25] 1 each IH DAILY Omeprazole 20 mg PO DAILY Metoprolol Succinate 50 mg [Toprol Xl 50 MG] 50 mg PO BID Famotidine 20 mg PO BID Prednisone 20 mg [Deltasone 20 mg] 10 mg PO DAILY Isosorbide Mononitrate 30 mg [Imdur 30 MG] 30 mg PO DAILY Albuterol/Ipratropium 3ml Neb* [DUONEB 0.5-3 MG/3 ml Neb] 3 ml IH QID Furosemide [Lasix] 20 mg PO DAILY Spironolactone 25 mg [Aldactone 25 MG] 25 mg PO DAILY Additional Instructions: Hold home dose of prednisone until this new prescription is complete. Follow up with PCP and pulmonology this week. Follow up with: GIO ORTIZ DO [Primary Care Provider] -
== END 2024-10-03 10:55 | disposition home or self-care (01) ==
LOC: ED 11:06 → MED SURG 14:57
PROVIDERS: ADMIT Internal Medicine; ATTEND Internal Medicine
DX: J44.1 Chronic obstructive pulmonary disease with (acute) exacerbation (principal); I11.0 Hypertensive heart disease with heart failure; I50.9 Heart failure, unspecified; R79.89 Other specified abnormal findings of blood chemistry; E66.811 Obesity, class 1; E78.5 Hyperlipidemia, unspecified; Z79.899 Other long term (current) drug therapy; I25.2 Old myocardial infarction; F17.200 Nicotine dependence, unspecified, uncomplicated; Z99.81 Dependence on supplemental oxygen
CPT/HCPCS: 0241U; 36415; 36600; 71045; 71260; 80053; 81001; 82375; 82803; 83605; 83735; 83880; 84484; 85025; 85027; 85379; 87651; 93005; 93041; 93268; 94002; 94640; 94760; 96365; 96374; 96375; 99291; G0378; Q3014; 99285; J0456; J0696; J1650; J1940; J2919; J3475; A9270-GY

== ENCOUNTER 2024-10-13 09:32 | Observation (INO) | payer MEDICARE ==
[2024-10-13] MEDS ORDERED: DUONEB 0.5-3 MG/3 ml Neb IH ONE (10:19)
[2024-10-13 10:21] LABS: Absolute Neutrophil Ct (ANC) 6.69 x10^3/uL (1.56-6.13); BASOPHIL % 0.2 % (0.1-1.2); Basophil (Absolute #) 0.02 x10^3/uL (0.01-0.08); Eosinophil % 0.7 % (0.7-5.8); Eosinophil (Absolute #) 0.06 x10^3/uL (0.04-0.36); Hematocrit 38.4 % (34.1-44.9); Hemoglobin 11.9 g/dL (11.2-15.7); IMMATURE GRAN # 0.04 x10^3u/L (0.001-0.031); IMMATURE GRAN % 0.5 % (0.001-0.429); Lymphocyte (Absolute #) 0.99 x10^3/uL (1.18-3.74); Lymphocytes % 11.7 % (19.3-51.7); Mean Cell Volume 88.1 fL (79.4-94.8); Mean Corpuscular Hemoglobin 27.3 pg (25.6-32.2); Mean Platelet Volume 10.5 fL (9.4-12.3); Monocyte (Absolute #) 0.66 x10^3/uL (0.24-0.86); Monocytes % 7.8 % (4.7-12.5); Neutrophil % 79.1 % (34.0-71.1); Platelet Count 261 x10^3/uL (182-369); Red Blood Count 4.36 x10^6/uL (3.93-5.22); Red Cell Distribution Width 14.2 % (11.7-14.4); White Blood Count 8.5 x10^3/uL (3.98-10.04)
[2024-10-13] MEDS: DUONEB 0.5-3 MG/3 ml Neb IH ONE (10:22)
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
[2024-10-13 10:32] LABS: ALBUMIN 3.7 g/dL (3.5-5.0); ANION GAP 8.9 MEQ/L (5-15); BILIRUBIN,TOTAL 0.9 mg/dL (0.2-1.3); Calcium 9.3 mg/dL (8.4-10.2); Creatinine 1 0.96 mg/dL (0.52-1.04); EST GLOMERULAR FILTRATION RATE 63.3 ML/MIN; Potassium 4.3 mmol/L (3.5-5.1); Total Protein 6.3 g/dL (6.3-8.2)
[2024-10-13] MEDS ORDERED: Sterile H2O 10 ml IJ ONE ×2 (10:52→21:12)
[2024-10-13] MEDS ORDERED: solu-MEDROL ONE ×2 (10:52→21:11)
[2024-10-13] MEDS: solu-MEDROL 125 MG, Sterile H2O 10 ml 2 ML IV ONE (10:54)
[2024-10-13 11:26] LABS: INFLUENZA A NEGATIVE (NEGATIVE); INFLUENZA B NEGATIVE (NEGATIVE); RESPIRATORY SYNCTIAL VIRUS NEGATIVE (NEGATIVE); SARS-CoV-2 Xpert Express NEGATIVE (NEGATIVE)
--- NOTE | 2024-10-13 15:22 | XRAY ---
Indication: Short of breath. Elevated d-dimer. Pulmonary embolus. Negative recent CT chest pulmonary embolus exam. Multiple contiguous axial images obtained through the chest using 80 cc Isovue 370 contrast and PE protocol. Comparison: October 02, 2024. Good opacification pulmonary arteries to include the lobar and segmental branches. Again diffuse respiration artifact limits evaluation distal lobar and segmental branches. Again no obvious pulmonary embolus. Heart remains enlarged with left pacemaker. Aorta remains mildly arteriosclerotic without aneurysm/dissection. Stable tiny right hilar calcified nodes. No pathologic mediastinal/hilar lymphadenopathy. Lungs again demonstrate pulmonary edema with slight worsening moderate bilateral pleural effusions with again mild bibasilar compressibility cysts. Remaining lungs again demonstrate pulmonary emphysema with scattered fibrosis/scarring. Bony thorax intact again with osteopenia and degenerative changes throughout spine. Limited upper abdomen again demonstrates splenic calcific granulomas. Impression: Compared to ER CT chest pulmonary embolus exam 11 days ago, there is again respiration artifact limiting pulmonary embolus exam. Again no obvious pulmonary embolus. Again CT features favoring cardiac decompensation/CHF with worsening bilateral effusions. Stable chronic findings including pulmonary emphysema, fibrosis/scarring, arteriosclerotic disease, chronic bony findings, and old granulomatous disease.
[2024-10-13] MEDS ORDERED: NITRO-BID 2% UD PACKETS ONE (16:13)
[2024-10-13] MEDS ORDERED: BABY ASPIRIN 81 MG CHEW ONE (16:13)
[2024-10-13] MEDS ORDERED: Lasix 40 MG/4 ML ONE (16:13)
[2024-10-13] MEDS: Lasix 40 MG/4 ML IV ONE (16:14)
[2024-10-13] MEDS: BABY ASPIRIN 81 MG CHEW PO ONE (16:14)
[2024-10-13] MEDS: NITRO-BID 2% UD PACKETS TOP ONE (16:14)
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
[2024-10-13] MEDS ORDERED: DELTASONE 20 MG PO PRN (17:32)
[2024-10-13] MEDS ORDERED: Zofran 4 MG/2 ML VIAL IV PRN (17:48)
[2024-10-13] MEDS ORDERED: TYLENOL 325 MG PO PRN (17:48)
[2024-10-13] MEDS ORDERED: NON-FORMULARY ITEM (Amlodipine Besylate [Norvasc] 2.5 MG) PO SCH (17:59)
[2024-10-13] MEDS ORDERED: NORVASC 5 MG ONE (18:24)
[2024-10-13] MEDS: Lopressor 50 MG PO SCH (18:27)
[2024-10-13] MEDS: NORVASC 5 MG PO SCH ×2 (18:30→18:39)
[2024-10-13] MEDS: Nicoderm CQ 21 MG TOP SCH (18:31)
[2024-10-13] MEDS ORDERED: DUONEB 0.5-3 MG/3 ml Neb IH SCH (19:00)
[2024-10-13] MEDS: DUONEB 0.5-3 MG/3 ml Neb IH PRN (19:12)
[2024-10-13] MEDS ORDERED: ZOCOR 20MG ONE (21:11)
[2024-10-13] MEDS ORDERED: ENTRESTO 49 MG-51 MG TABLET ONE (21:11)
[2024-10-13] MEDS: Ranexa 500 MG PO SCH (21:29)
[2024-10-13] MEDS: Pepcid 20 MG PO SCH (21:29)
[2024-10-13] MEDS: ZOCOR 20MG PO SCH (21:30)
[2024-10-13] MEDS: Lasix 40 MG/4 ML IV SCH (21:30)
[2024-10-13] MEDS: solu-MEDROL 40 MG, Sterile H2O 10 ml 1 ML IV SCH (21:30)
[2024-10-13] MEDS: HEPARIN 5000 UNITS/0.5 ML (HIGH RISK MED) SQ SCH (21:30)
[2024-10-13] MEDS: ENTRESTO 49 MG-51 MG TABLET PO SCH (21:30)
[2024-10-13] MEDS ORDERED: NON-FORMULARY ITEM (Sacubitril/Valsartan [Entresto 97 Mg-103 Mg Tablet] 1 EACH Tablet) PO SCH (22:00)
[2024-10-13] MEDS ORDERED: Lopressor 50 MG PO SCH (22:00)
[2024-10-13] MEDS ORDERED: LIPITOR 40MG PO SCH (22:00)
[2024-10-13] MEDS ORDERED: DELTASONE 20 MG PO SCH (22:00)
[2024-10-13] MEDS: Tums EX 750 MG PO PRN (22:21)
--- NOTE | 2024-10-14 05:04 | PCM.NOTE ---
Date and Time: 10/14/24 0504 Subjective Assessment: is a 69 year old female with PMHX of [place] (does not wear her hearing aides), migraines, cataracts, [place], pacemaker, hyperlipidemia, HTN, arrythmia, CHF, COPD (baseline O2 4lNC), OA, GERD, anxiety, and daily smoker who presented to ED 10/13/24 with complaints of shortness of breath. Patient states she has had a productive cough with thick yellow sputum, progressive shortness of breath, and wheezing for the past 2-3 days. She reports that she has not taken any of her home medications for two days as she has not been able to ambulate due to how severely short of breath she has been. She denies fever, nausea, vomiting, headache, vision changes, or diarrhea. No recent sick contacts. She was recently hospitalized 10/02/24-10/03/24 with CHF exacerbation. She is a current everyday smoker and is not interested in quitting. She is on her baseline oxygen of 4L. Upon arrival to ED, patient tachycardic, tachypneic, and hypertensive. EKG Sinus Tach (127), LAFB, NORMAL INTERVALS, NORMAL QRS. CT chest w/contrast negative for PE - demonstrates bilateral worsening effusions favoring cardiac decom pensation/CHF. Chemistries and CBC unremarkable. Ddimer elevated at 2.46, which is improved from most recent visit of 4.28. Respiratory viral panel negative. Patient given solumedrol and Duonebs in ED. 10/14/24: Met with patient bedside. No overnight events noted. Endorses continued dyspnea and productive cough with thick yellow mucus. Does feel somewhat better. Lung sounds coarse bilaterally with exp wheezing on auscultation. Denies fever, cp, abdominal pain, RANDLE, dizziness, N/V/D. - Review of Systems Constitutional: No Symptoms Eyes: No Symptoms Ears, Nose, & Throat: No Symptoms Respiratory: Cough, Short Of Breath, Wheezing Cardiac: No Symptoms Abdominal/Gastrointestinal: No Symptoms Genitourinary Symptoms: No Symptoms Musculoskeletal: No Symptoms Skin: No Symptoms Neurological: No Symptoms Psychological: No Symptoms Endocrine: No Symptoms Hematologic/Lymphatic: No Symptoms Immunological/Allergic: No Symptoms Objective Exam General Appearance: no apparent distress Neurologic Exam: alert, oriented x 3, cooperative Skin Exam: normal color Wound Assessment: Skin/Wound Assessment Wound/Incision Assessment Start: 10/13/24 17:50 Text: Status: Active Freq: Q6H Protocol: Document 10/14/24 02:00 AK (Rec: 10/14/24 03:20 AK [id number]) Wound/Incision Assessment Left Lower Arm Wound Assessment Shift Assessment Wound Type Skin Tear Wound Stage Non Pressure Wound Drainage Amount None General Appearance Open to air Comment scabbed/healing skin tear to left forearm Wound Photo Photo Taken No Eye Exam: PERRL Ears, Nose, Throat Exam: normal ENT inspection Neck Exam: normal inspection Respiratory Exam: crackles/rales, rhonchi, wheezing Cardiovascular Exam: regular rate/rhythm, normal heart sounds Gastrointestinal/Abdomen Exam: soft, normal bowel sounds Extremity Exam: normal inspection Back Exam: normal inspection Pelvic Exam: deferred Rectal Exam: deferred Objective Data Vital Signs: Vital Signs - 24 hr Temp Pulse Resp BP BP Pulse Ox 10/14/24 03:22 97.6 F 108 H 27 H 128/80 93 L 10/14/24 02:28 95 H 16 94 L 10/13/24 23:31 98.2 F 102 H 23 136/85 94 L 10/13/24 20:00 98.6 F 114 H 17 144/79 92 L 10/13/24 19:15 118 H 18 95 10/13/24 17:27 97.7 F 118 H 24 166/84 94 L 10/13/24 16:29 97 10/13/24 16:00 123 H 26 H 142/99 96 10/13/24 15:30 109 H 19 141/100 93 L 10/13/24 15:07 116 H 18 142/92 94 L 10/13/24 15:06 114 H 36 H 96 10/13/24 14:40 111 H 20 94 L 10/13/24 14:30 122 H 21 93 L 10/13/24 14:20 121 H 17 94 L 10/13/24 14:10 113 H 18 93 L 10/13/24 14:00 112 H 23 93 L 10/13/24 13:50 115 H 19 93 L 10/13/24 13:40 116 H 19 95 10/13/24 13:33 121 H 16 94 L 10/13/24 13:01 108 H 17 163/112 94 L 10/13/24 12:30 111 H 20 159/108 95 10/13/24 12:00 110 H 23 140/110 96 10/13/24 11:50 104 H 18 96 10/13/24 11:40 122 H 25 H 96 10/13/24 11:36 126 H 29 H 91 L 10/13/24 11:01 109 H 23 157/106 97 10/13/24 11:00 120 H 20 96 10/13/24 10:50 121 H 20 86 L 10/13/24 10:40 114 H 22 99 10/13/24 10:32 114 H 21 100 10/13/24 10:25 113 H 16 98 10/13/24 10:24 100 10/13/24 09:33 98.5 F 124 H 25 H 174/116 174/116 97 Pain Assessment - Last Documented Pain Intensity 0 Intake and Output: Intake & Output 10/11/24 10/12/24 10/13/24 10/14/24 11:59 11:59 11:59 11:59 Intake Total 480 Output Total 2100 Balance -1620 Weight 95.254 kg 96 kg Lab Results: Lab Results-Last 24 Hours 10/13/24 10/13/24 10/13/24 Range/Units 10:19 10:19 10:19 WBC 8.5 (3.98-10.04) x10^3/uL RBC 4.36 (3.93-5.22) x10^6/uL Hgb 11.9 (11.2-15.7) g/dL Hct 38.4 (34.1-44.9) % MCV 88.1 (79.4-94.8) fL MCH 27.3 (25.6-32.2) pg MCHC 31.0 L (32.2-35.5) g/dL RDW 14.2 (11.7-14.4) % Plt Count 261 (182-369) x10^3/uL MPV 10.5 (9.4-12.3) fL Gran % 79.1 H (34.0-71.1) % Immature Gran % (Auto) 0.5 H (0.001-0.429) % Nucleat RBC Rel Count 0.0 (0.00-0.2) % Eos # (Auto) 0.06 (0.04-0.36) x10^3/uL Immature Gran # (Auto) 0.04 H (0.001-0.031) x10^3u/L Absolute Lymphs (auto) 0.99 L (1.18-3.74) x10^3/uL Absolute Monos (auto) 0.66 (0.24-0.86) x10^3/uL Absolute Nucleated RBC 0.00 (0.00-0.012) x10^3u/L Lymphocytes % 11.7 L (19.3-51.7) % Monocytes % 7.8 (4.7-12.5) % Eosinophils % 0.7 (0.7-5.8) % Basophils % 0.2 (0.1-1.2) % Absolute Granulocytes 6.69 H (1.56-6.13) x10^3/uL Basophils # 0.02 (0.01-0.08) x10^3/uL D-Dimer 2.46 H* (0.0-0.50) mg/L Sodium 136 (135-145) mmol/L Potassium 4.3 (3.5-5.1) mmol/L Chloride 104 (98-107) mmol/L Carbon Dioxide 27 (22-30) mmol/L Anion Gap 8.9 (5-15) MEQ/L BUN 15 (7-17) mg/dL Creatinine 0.96 (0.52-1.04) mg/dL Estimated GFR 63.3 ML/MIN Glucose 143 H (74-106) mg/dL Lactic Acid (0.4-2.0) Calcium 9.3 (8.4-10.2) mg/dL Total Bilirubin 0.90 (0.2-1.3) mg/dL AST 26 (14-36) U/L ALT 30 (0-35) U/L Alkaline Phosphatase 113 (38-126) U/L Troponin I (0.000-0.033) ng/mL Serum Total Protein 6.3 (6.3-8.2) g/dL Albumin 3.7 (3.5-5.0) g/dL NT-Pro-B Natriuret Pep (<300) pg/mL Influenza Type A Ag (NEGATIVE) Influenza Type B Ag (NEGATIVE) RSV (PCR) (NEGATIVE) SARS-CoV-2 (PCR) (NEGATIVE) 1210/13/24 10/13/24 Range/Units 10:19 10:30 10:40 WBC (3.98-10.04) x10^3/uL RBC (3.93-5.22) x10^6/uL Hgb (11.2-15.7) g/dL Hct (34.1-44.9) % MCV (79.4-94.8) fL MCH (25.6-32.2) pg MCHC (32.2-35.5) g/dL RDW (11.7-14.4) % Plt Count (182-369) x10^3/uL MPV (9.4-12.3) fL Gran % (34.0-71.1) % Immature Gran % (Auto) (0.001-0.429) % Nucleat RBC Rel Count (0.00-0.2) % Eos # (Auto) (0.04-0.36) x10^3/uL Immature Gran # (Auto) (0.001-0.031) x10^3u/L Absolute Lymphs (auto) (1.18-3.74) x10^3/uL Absolute Monos (auto) (0.24-0.86) x10^3/uL Absolute Nucleated RBC (0.00-0.012) x10^3u/L Lymphocytes % (19.3-51.7) % Monocytes % (4.7-12.5) % Eosinophils % (0.7-5.8) % Basophils % (0.1-1.2) % Absolute Granulocytes (1.56-6.13) x10^3/uL Basophils # (0.01-0.08) x10^3/uL D-Dimer (0.0-0.50) mg/L Sodium (135-145) mmol/L Potassium (3.5-5.1) mmol/L Chloride (98-107) mmol/L Carbon Dioxide (22-30) mmol/L Anion Gap (5-15) MEQ/L BUN (7-17) mg/dL Creatinine (0.52-1.04) mg/dL Estimated GFR ML/MIN Glucose (74-106) mg/dL Lactic Acid 1.3 (0.4-2.0) Calcium (8.4-10.2) mg/dL Total Bilirubin (0.2-1.3) mg/dL AST (14-36) U/L ALT (0-35) U/L Alkaline Phosphatase (38-126) U/L Troponin I 0.031 (0.000-0.033) ng/mL Serum Total Protein (6.3-8.2) g/dL Albumin (3.5-5.0) g/dL NT-Pro-B Natriuret Pep (<300) pg/mL Influenza Type A Ag NEGATIVE (NEGATIVE) Influenza Type B Ag NEGATIVE (NEGATIVE) RSV (PCR) NEGATIVE (NEGATIVE) SARS-CoV-2 (PCR) NEGATIVE (NEGATIVE) 10/13/24 10/13/24 10/13/24 Range/Units 14:45 19:01 Unknown WBC (3.98-10.04) x10^3/uL RBC (3.93-5.22) x10^6/uL Hgb (11.2-15.7) g/dL Hct (34.1-44.9) % MCV (79.4-94.8) fL MCH (25.6-32.2) pg MCHC (32.2-35.5) g/dL RDW (11.7-14.4) % Plt Count (182-369) x10^3/uL MPV (9.4-12.3) fL Gran % (34.0-71.1) % Immature Gran % (Auto) (0.001-0.429) % Nucleat RBC Rel Count (0.00-0.2) % Eos # (Auto) (0.04-0.36) x10^3/uL Immature Gran # (Auto) (0.001-0.031) x10^3u/L Absolute Lymphs (auto) (1.18-3.74) x10^3/uL Absolute Monos (auto) (0.24-0.86) x10^3/uL Absolute Nucleated RBC (0.00-0.012) x10^3u/L Lymphocytes % (19.3-51.7) % Monocytes % (4.7-12.5) % Eosinophils % (0.7-5.8) % Basophils % (0.1-1.2) % Absolute Granulocytes (1.56-6.13) x10^3/uL Basophils # (0.01-0.08) x10^3/uL D-Dimer (0.0-0.50) mg/L Sodium (135-145) mmol/L Potassium (3.5-5.1) mmol/L Chloride (98-107) mmol/L Carbon Dioxide (22-30) mmol/L Anion Gap (5-15) MEQ/L BUN (7-17) mg/dL Creatinine (0.52-1.04) mg/dL Estimated GFR ML/MIN Glucose (74-106) mg/dL Lactic Acid (0.4-2.0) Calcium (8.4-10.2) mg/dL Total Bilirubin (0.2-1.3) mg/dL AST (14-36) U/L ALT (0-35) U/L Alkaline Phosphatase (38-126) U/L Troponin I 0.033 0.030 (0.000-0.033) ng/mL Serum Total Protein (6.3-8.2) g/dL Albumin (3.5-5.0) g/dL NT-Pro-B Natriuret Pep 4560 (<300) pg/mL Influenza Type A Ag (NEGATIVE) Influenza Type B Ag (NEGATIVE) RSV (PCR) (NEGATIVE) SARS-CoV-2 (PCR) (NEGATIVE) Radiology Exams: Radiology Procedures Category Date Time Status CHEST WITH CONTRAST [CT] Stat Exams 10/13/24 10:44 Completed Assessment/Plan (1) CHF exacerbation Current Visit: Yes Status: Acute Assessment & Plan: -CT w/contrast negative for PE - demonstrates bilateral worsening effusions favoring cardiac decompensation/CHF -BNP reviewed at 4560 -Lasix 40mg IV BID -tele -Strict I&O -Optimize electrolytes -supplemental oxygen with spo2 goal 88-92% - at baseline currently of 4LNC -Daily weights - elevate HOB -Echo reviewed from 12/06/23 with EF at 50% IMPRESSION: 1) MILD CONCENTRIC LEFT VENTRICULAR HYPERTROPHY. 2) LOW NORMAL LEFT VENTRICULAR SYSTOLIC FUNCTION. 3) DIASTOLIC DYSFUNCTION. 4) PACEMAKER ARTIFACT IN THE RIGHT VENTRICLE AND ATRIUM. 5) TRACE MITRAL REGURGITATION. 6) TRACE TRICUSPID REGURGITATION. - Tele - EKG Sinus Tach (127), LAFB, NORMAL INTERVALS, NORMAL QRS -continue home meds- patient has not taken in several days 10/14: -CMP, CBC reviewed -Lasix changed to 20mg IV daily -creat elevated -at baseline oxygen of 4L -balance -1560 Code(s): I50.9 - HEART FAILURE, UNSPECIFIED (2) COPD (chronic obstructive pulmonary disease) Current Visit: Yes Status: Chronic Qualifiers: COPD type: COPD with acute exacerbation Qualified Code(s): J44.1 - Chronic obstructive pulmonary disease with (acute) exacerbation Assessment & Plan: -CT reviewed as stated above -supplemental oxygen with goal spo2 88-92% - 3L at baseline - Continue Trelogy inhaler- pt will bring from home - RT eval and treat - CBC, CMP reviewed -solumedrol -azithromycin (3) D-dimer, elevated Current Visit: No Status: Acute Assessment & Plan: - Appears chronic - reviewed several past visits most recent 4. (10/02/24) now at 2.46 - CT negative for PE Code(s): R79.89 - OTHER SPECIFIED ABNORMAL FINDINGS OF BLOOD CHEMISTRY (4) CRF (chronic renal failure) Current Visit: No Status: Chronic Assessment & Plan: - Baseline renal function around 1.2-1.3 -Creat reviewed and at 0.96 -Monitor renal/lytes daily -avoid nephrotoxic agents 10/14: -creat reviewed and increased since yesterday but at patient's baseline- decreas e lasix to 20mg IV daily (5) HTN (hypertension) Current Visit: No Status: Chronic Assessment & Plan: - restart home meds today - monitor BP/HR Code(s): I10 - ESSENTIAL (PRIMARY) HYPERTENSION (6) Hyperlipidemia Current Visit: No Status: Chronic Assessment & Plan: - Continue statin VTE: lovenox PPI: protonix Dispo: 1-2 days Code status: Full code Code(s): I50.9 - HEART FAILURE, UNSPECIFIED (2) COPD (chronic obstructive pulmonary disease) Current Visit: Yes Status: Chronic Qualifiers: COPD type: COPD with acute exacerbation Qualified Code(s): J44.1 - Chronic obstructive pulmonary disease with (acute) exacerbation (3) D-dimer, elevated Current Visit: No Status: Acute Code(s): R79.89 - OTHER SPECIFIED ABNORMAL FINDINGS OF BLOOD CHEMISTRY (4) CRF (chronic renal failure) Current Visit: No Status: Chronic (5) HTN (hypertension) Current Visit: No Status: Chronic Code(s): I10 - ESSENTIAL (PRIMARY) HYPERTENSION (6) Hyperlipidemia Current Visit: No Status: Chronic Code(s): E78.5 - HYPERLIPIDEMIA, UNSPECIFIED
[2024-10-14] MEDS ORDERED: solu-MEDROL ONE (05:08)
[2024-10-14] MEDS ORDERED: Sterile H2O 10 ml IJ ONE (05:08)
[2024-10-14 05:19] LABS: Absolute Neutrophil Ct (ANC) 6.98 x10^3/uL (1.56-6.13); Basophil (Absolute #) 0 x10^3/uL (0.01-0.08); Eosinophil % 0.1 % (0.7-5.8); Eosinophil (Absolute #) 0.01 x10^3/uL (0.04-0.36); Hematocrit 36.3 % (34.1-44.9); Hemoglobin 11.4 g/dL (11.2-15.7); IMMATURE GRAN # 0.04 x10^3u/L (0.001-0.031); IMMATURE GRAN % 0.5 % (0.001-0.429); Lymphocyte (Absolute #) 0.32 x10^3/uL (1.18-3.74); Lymphocytes % 4.2 % (19.3-51.7); Mean Cell Volume 87.1 fL (79.4-94.8); Mean Corpuscular Hemoglobin 27.3 pg (25.6-32.2); Mean Corpuscular Hgb Concent. 31.4 g/dL (32.2-35.5); Mean Platelet Volume 10.6 fL (9.4-12.3); Monocyte (Absolute #) 0.24 x10^3/uL (0.24-0.86); Monocytes % 3.2 % (4.7-12.5); Platelet Count 256 x10^3/uL (182-369); Red Blood Count 4.17 x10^6/uL (3.93-5.22); Red Cell Distribution Width 14.4 % (11.7-14.4); White Blood Count 7.6 x10^3/uL (3.98-10.04)
[2024-10-14 05:46] LABS: ALBUMIN 3.8 g/dL (3.5-5.0); ANION GAP 7.6 MEQ/L (5-15); BILIRUBIN,TOTAL 0.6 mg/dL (0.2-1.3); Calcium 9.4 mg/dL (8.4-10.2); Creatinine 1 1.33 mg/dL (0.52-1.04); EST GLOMERULAR FILTRATION RATE 42.8 ML/MIN; Potassium 3.9 mmol/L (3.5-5.1); Total Protein 6.7 g/dL (6.3-8.2)
[2024-10-14 05:50] LABS: Appearance Clear (Clear); Bacteria None Seen /HPF (None Seen); Bilirubin Negative (Negative); Blood Negative (Negative); Epithelial Cells None Seen /HPF (None Seen); Glucose, Urine Negative (Negative); Hyaline Casts NONE SEEN /LPF (0-2); Ketones Negative (Negative); Leukocyte Esterase Negative (Negative); Nitrite Negative (Negative); Protein,Urine Dip Negative (Negative); RBC 0-2 /HPF (0-5); WBC 0-2 /HPF (0-5)
[2024-10-14] MEDS ORDERED: VENTOLIN COMMON CANISTER IH PRN (07:11)
[2024-10-14] MEDS ORDERED: MEDICATION INTERVENTION MC SCH ×2 (07:15→07:30)
[2024-10-14 07:27] LABS: Slide Review 1 YES
[2024-10-14] MEDS: DUONEB 0.5-3 MG/3 ml Neb IH PRN (07:54)
[2024-10-14] MEDS: ECOTRIN 81 MG PO SCH (09:01)
[2024-10-14] MEDS: Protonix 40MG Tablet PO SCH (09:01)
[2024-10-14] MEDS: Imdur 30 MG PO SCH (09:01)
[2024-10-14] MEDS: Nicoderm CQ 21 MG TOP SCH (09:02)
[2024-10-14] MEDS: Zithromax 500 MG/ 250 ML NaCl Premix 500 MG/250 ML IVPB IV SCH (09:18)
[2024-10-14] MEDS ORDERED: NON-FORMULARY ITEM (Fluticasone/Umeclidin/Vilanter [Trelegy Ellipta 200-62.5-25] 1 EACH Bl IH SCH (10:00)
[2024-10-14] MEDS ORDERED: NON-FORMULARY ITEM (Dapagliflozin Propanediol [Farxiga] 10 MG Tablet) PO SCH (10:00)
[2024-10-14] MEDS ORDERED: NON-FORMULARY ITEM (Amlodipine Besylate [Norvasc] 2.5 MG Tablet) PO SCH (10:00)
[2024-10-14] MEDS ORDERED: Lasix 40 MG/4 ML IV SCH (10:00)
[2024-10-14] MEDS: PROVENTIL 2.5 MG/3 ML NEB IH SCH (11:26)
[2024-10-14] MEDS: ULTRAM 50 MG PO PRN (23:20)
[2024-10-15] MEDS: PATIENT OWN MEDICATION IH SCH (05:11)
--- NOTE | 2024-10-15 05:12 | PCM.NOTE ---
Date and Time: 10/15/24 0510 Subjective Assessment: is a 69 year old female with PMHX of [place] (does not wear her hearing aides), migraines, cataracts, [place], pacemaker, hyperlipidemia, HTN, arrythmia, CHF, COPD (baseline O2 4lNC), OA, GERD, anxiety, and daily smoker who presented to ED 10/13/24 with complaints of shortness of breath. Patient states she has had a productive cough with thick yellow sputum, progressive shortness of breath, and wheezing for the past 2-3 days. She reports that she has not taken any of her home medications for two days as she has not been able to ambulate due to how severely short of breath she has been. She denies fever, nausea, vomiting, headache, vision changes, or diarrhea. No recent sick contacts. She was recently hospitalized 10/02/24-10/03/24 with CHF exacerbation. She is a current everyday smoker and is not interested in quitting. She is on her baseline oxygen of 4L. Upon arrival to ED, patient tachycardic, tachypneic, and hypertensive. EKG Sinus Tach (127), LAFB, NORMAL INTERVALS, NORMAL QRS. CT chest w/contrast negative for PE - demonstrates bilateral worsening effusions favoring cardiac decom pensation/CHF. Chemistries and CBC unremarkable. Ddimer elevated at 2.46, which is improved from most recent visit of 4.28. Respiratory viral panel negative. Patient given solumedrol and Duonebs in ED. 10/14/24: Met with patient bedside. No overnight events noted. Endorses continued dyspnea and productive cough with thick yellow mucus. Does feel somewhat better. Lung sounds coarse bilaterally with exp wheezing on auscultation. Denies fever, cp, abdominal pain, RANDLE, dizziness, N/V/D. Objective Exam Wound Assessment: Skin/Wound Assessment Wound/Incision Assessment Start: 10/13/24 17:50 Text: Status: Active Freq: Q6H Protocol: Document 10/15/24 02:00 JOEL (Rec: 10/15/24 03:25 AK [id number]) Wound/Incision Assessment Left Lower Arm Wound Assessment Shift Assessment Wound Type Skin Tear Wound Stage Non Pressure Wound Drainage Amount None General Appearance Open to air Comment scabbed/healing skin tear to left forearm Wound Photo Photo Taken No Objective Data Vital Signs: Vital Signs - 24 hr Temp Pulse Resp BP Pulse Ox 10/15/24 04:00 97.8 F 100 H 20 116/70 98 10/15/24 00:00 98.0 F 90 20 119/75 98 10/14/24 20:00 97.6 F 101 H 17 106/59 97 10/14/24 19:35 103 H 20 96 10/14/24 16:06 98 H 20 95 10/14/24 16:00 96.5 F 105 H 18 102/58 95 10/14/24 12:00 97.5 F 99 H 18 89/52 99 10/14/24 11:31 99 H 18 93 L 10/14/24 07:55 97 H 24 100 10/14/24 07:33 97.8 F 54 L 18 149/89 91 L Pain Assessment - Last Documented Pain Intensity 4 Intake and Output: Intake & Output 10/12/24 10/13/24 10/14/24 10/15/24 11:59 11:59 11:59 11:59 Intake Total 1340 1080 Output Total 2900 1700 Balance -1560 -620 Weight 95.254 kg 95.5 kg Lab Results: Lab Results-Last 24 Hours 10/13/24 10/14/24 10/14/24 Range/Units 05:40 05:10 05:10 WBC 7.6 (3.98-10.04) x10^3/uL RBC 4.17 (3.93-5.22) x10^6/uL Hgb 11.4 (11.2-15.7) g/dL Hct 36.3 (34.1-44.9) % MCV 87.1 (79.4-94.8) fL MCH 27.3 (25.6-32.2) pg MCHC 31.4 L (32.2-35.5) g/dL RDW 14.4 (11.7-14.4) % Plt Count 256 (182-369) x10^3/uL MPV 10.6 (9.4-12.3) fL Gran % 92.0 H (34.0-71.1) % Immature Gran % (Auto) 0.5 H (0.001-0.429) % Nucleat RBC Rel Count 0.0 (0.00-0.2) % Eos # (Auto) 0.01 L (0.04-0.36) x10^3/uL Immature Gran # (Auto) 0.04 H (0.001-0.031) x10^3u/L Absolute Lymphs (auto) 0.32 L (1.18-3.74) x10^3/uL Absolute Monos (auto) 0.24 (0.24-0.86) x10^3/uL Absolute Nucleated RBC 0.00 (0.00-0.012) x10^3u/L Lymphocytes % 4.2 L (19.3-51.7) % Monocytes % 3.2 L (4.7-12.5) % Eosinophils % 0.1 L (0.7-5.8) % Basophils % 0.0 L (0.1-1.2) % Absolute Granulocytes 6.98 H (1.56-6.13) x10^3/uL Basophils # 0 L (0.01-0.08) x10^3/uL Sodium 136 (135-145) mmol/L Potassium 3.9 (3.5-5.1) mmol/L Chloride 97 L (98-107) mmol/L Carbon Dioxide 35 H (22-30) mmol/L Anion Gap 7.6 (5-15) MEQ/L BUN 23 H (7-17) mg/dL Creatinine 1.33 H (0.52-1.04) mg/dL Estimated GFR 42.8 ML/MIN Glucose 199 H (74-106) mg/dL Calcium 9.4 (8.4-10.2) mg/dL Total Bilirubin 0.60 (0.2-1.3) mg/dL AST 34 (14-36) U/L ALT 39 H (0-35) U/L Alkaline Phosphatase 103 (38-126) U/L Serum Total Protein 6.7 (6.3-8.2) g/dL Albumin 3.8 (3.5-5.0) g/dL Urine Color Yellow (Yellow) Urine Appearance Clear (Clear) Urine pH 7.0 (4.6-8.0) Ur Specific [place] 1.010 (1.005-1.030) Urine Protein Negative (Negative) Urine Glucose (UA) Negative (Negative) mg/dL Urine Ketones Negative (Negative) Urine Blood Negative (Negative) Urine Nitrite Negative (Negative) Urine Bilirubin Negative (Negative) Urine Urobilinogen 1.0 A (0.2) mg/dL Ur Leukocyte Esterase Negative (Negative) U Hyaline Cast (Auto) NONE SEEN (0-2) /LPF Urine Microscopic RBC 0-2 (0-5) /HPF Urine Microscopic WBC 0-2 (0-5) /HPF Ur Epithelial Cells None Seen (None Seen) /HPF Urine Bacteria None Seen (None Seen) /HPF Urine Culture Reflexed NO (NO) Slides for Path Review YES Radiology Exams: Radiology Procedures Category Date Time Status CHEST WITH CONTRAST [CT] Stat Exams 10/13/24 10:44 Completed Assessment/Plan (1) CHF exacerbation Current Visit: Yes Status: Acute Assessment & Plan: -CT w/contrast negative for PE - demonstrates bilateral worsening effusions favoring cardiac decompensation/CHF -BNP reviewed at 4560 -Lasix 40mg IV BID -tele -Strict I&O -Optimize electrolytes -supplemental oxygen with spo2 goal 88-92% - at baseline currently of 4LNC -Daily weights - elevate HOB -Echo reviewed from 12/06/23 with EF at 50% IMPRESSION: 1) MILD CONCENTRIC LEFT VENTRICULAR HYPERTROPHY. 2) LOW NORMAL LEFT VENTRICULAR SYSTOLIC FUNCTION. 3) DIASTOLIC DYSFUNCTION. 4) PACEMAKER ARTIFACT IN THE RIGHT VENTRICLE AND ATRIUM. 5) TRACE MITRAL REGURGITATION. 6) TRACE TRICUSPID REGURGITATION. - Tele - EKG Sinus Tach (127), LAFB, NORMAL INTERVALS, NORMAL QRS -continue home meds- patient has not taken in several days 10/14: -CMP, CBC reviewed -Lasix changed to 20mg IV daily -creat elevated -at baseline oxygen of 4L -balance -1560 Code(s): I50.9 - HEART FAILURE, UNSPECIFIED (2) COPD (chronic obstructive pulmonary disease) Current Visit: Yes Status: Chronic Qualifiers: COPD type: COPD with acute exacerbation Qualified Code(s): J44.1 - Chronic obstructive pulmonary disease with (acute) exacerbation Assessment & Plan: -CT reviewed as stated above -supplemental oxygen with goal spo2 88-92% - 3L at baseline - Continue Trelogy inhaler- pt will bring from home - RT eval and treat - CBC, CMP reviewed -solumedrol -azithromycin (3) D-dimer, elevated Current Visit: No Status: Acute Assessment & Plan: - Appears chronic - reviewed several past visits most recent 4. (10/02/24) now at 2.46 - CT negative for PE Code(s): R79.89 - OTHER SPECIFIED ABNORMAL FINDINGS OF BLOOD CHEMISTRY (4) CRF (chronic renal failure) Current Visit: No Status: Chronic Assessment & Plan: - Baseline renal function around 1.2-1.3 -Creat reviewed and at 0.96 -Monitor renal/lytes daily -avoid nephrotoxic agents 10/14: -creat reviewed and increased since yesterday but at patient's baseline- decrease lasix to 20mg IV daily (5) HTN (hypertension) Current Visit: No Status: Chronic Assessment & Plan: - restart home meds today - monitor BP/HR Code(s): I10 - ESSENTIAL (PRIMARY) HYPERTENSION (6) Hyperlipidemia Current Visit: No Status: Chronic Assessment & Plan: - Continue statin VTE: lovenox PPI: protonix Dispo: 1-2 days Code status: Full code Code(s): I50.9 - HEART FAILURE, UNSPECIFIED (2) COPD (chronic obstructive pulmonary disease) Current Visit: Yes Status: Chronic Qualifiers: COPD type: COPD with acute exacerbation Qualified Code(s): J44.1 - Chronic obstructive pulmonary disease with (acute) exacerbation (3) D-dimer, elevated Current Visit: No Status: Acute Code(s): R79.89 - OTHER SPECIFIED ABNORMAL FINDINGS OF BLOOD CHEMISTRY (4) CRF (chronic renal failure) Current Visit: No Status: Chronic (5) HTN (hypertension) Current Visit: No Status: Chronic Code(s): I10 - ESSENTIAL (PRIMARY) HYPERTENSION (6) Hyperlipidemia Current Visit: No Status: Chronic Code(s): E78.5 - HYPERLIPIDEMIA, UNSPECIFIED
[2024-10-15 05:51] LABS: Absolute Neutrophil Ct (ANC) 10.36 x10^3/uL (1.56-6.13); BASOPHIL % 0.1 % (0.1-1.2); Basophil (Absolute #) 0.01 x10^3/uL (0.01-0.08); Eosinophil (Absolute #) 0 x10^3/uL (0.04-0.36); Hematocrit 33.8 % (34.1-44.9); Hemoglobin 10.7 g/dL (11.2-15.7); IMMATURE GRAN # 0.06 x10^3u/L (0.001-0.031); IMMATURE GRAN % 0.5 % (0.001-0.429); Lymphocyte (Absolute #) 0.33 x10^3/uL (1.18-3.74); Mean Cell Volume 86.9 fL (79.4-94.8); Mean Corpuscular Hemoglobin 27.5 pg (25.6-32.2); Mean Corpuscular Hgb Concent. 31.7 g/dL (32.2-35.5); Monocyte (Absolute #) 0.41 x10^3/uL (0.24-0.86); Monocytes % 3.7 % (4.7-12.5); Neutrophil % 92.7 % (34.0-71.1); Platelet Count 235 x10^3/uL (182-369); Red Blood Count 3.89 x10^6/uL (3.93-5.22); Red Cell Distribution Width 14.8 % (11.7-14.4); White Blood Count 11.2 x10^3/uL (3.98-10.04)
[2024-10-15 05:58] LABS: ALBUMIN 3.6 g/dL (3.5-5.0); ANION GAP 8.5 MEQ/L (5-15); BILIRUBIN,TOTAL 0.5 mg/dL (0.2-1.3); Creatinine 1 1.32 mg/dL (0.52-1.04); EST GLOMERULAR FILTRATION RATE 43.2 ML/MIN; Potassium 4.3 mmol/L (3.5-5.1); Total Protein 6.1 g/dL (6.3-8.2)
[2024-10-15 06:09] LABS: Slide Review 1 YES
[2024-10-15] MEDS: Lasix 20 MG/2 ML IV SCH (08:50)
[2024-10-15 10:18] VITALS: RESP 16
--- NOTE | 2024-10-15 13:16 | PCM.DS ---
Discharge Summary Date of Admission: 10/13/24 17:10 Date of Discharge: 10/15/24 Admitting Physician: DAI FRY MD Primary Care Provider: GIO ORTIZ DO Allergies Allergies No Known Drug Allergies Allergy (Verified 10/13/24 17:21) Hospital Summary - Hospital Course Hospital Course: is a 69 year old female with PMHX of [place] (does not wear her hearing aides), migraines, cataracts, NE, pacemaker, hyperlipidemia, HTN, arryth can, CHF, COPD (baseline O2 4lNC), OA, GERD, anxiety, and daily smoker who presented to ED 10/13/24 with complaints of shortness of breath. Patient states she has had a productive cough with thick yellow sputum, progressive shortness of breath, and wheezing for the past 2-3 days. She reports that she has not taken any of her home medications for two days as she has not been able to ambulate due to how severely short of breath she has been. She denies fever, nausea, vomiting, headache, vision changes, or diarrhea. No recent sick contacts. She was recently hospitalized 10/02/24-10/03/24 with CHF exacerbation. She is a current everyday smoker and is not interested in quitting. She is on her baseline oxygen of 4L. Upon arrival to ED, patient tachycardic, tachypneic, and hypertensive. EKG Sinus Tach (127), LAFB, NORMAL INTERVALS, NORMAL QRS. CT chest w/contrast negative for PE - demonstrates bilateral worsening effusions favoring cardiac decompensation/CHF. Chemistries and CBC unremarkable. Ddimer elevated at 2.46, which is improved from most recent visit of 4.28. Respiratory viral panel negative. Patient given solumedrol and Duonebs in ED. Patient received IP treatment with azithromycin (completed course)/diuresis. Dyspnea and cough have improved. Patient at baseline oxygen of 4L. No further episodes of tachycardia. States she feels like she is at her baseline and requesting disc harge home. She has home oxygen and nebulizer. Advised smoking cessation which she declines. Labs and vitals stable. Will discharge home on lasix and prednisone. Discharge Note New Medications: Prednisone/lasix Follow Up: cards/pulm/pcp Outpatient testing to order: Latest Assessment & Plan (1) CHF exacerbation Current Visit: Yes Status: Acute Assessment & Plan: -CT w/contrast negative for PE - demonstrates bilateral worsening effusions favoring cardiac decompensation/CHF -BNP reviewed at 4560 -Lasix 40mg IV BID -tele -Strict I&O -Optimize electrolytes -supplemental oxygen with spo2 goal 88-92% - at baseline currently of 4LNC -Daily weights - elevate HOB -Echo reviewed from 12/06/23 with EF at 50% IMPRESSION: 1) MILD CONCENTRIC LEFT VENTRICULAR HYPERTROPHY. 2) LOW NORMAL LEFT VENTRICULAR SYSTOLIC FUNCTION. 3) DIASTOLIC DYSFUNCTION. 4) PACEMAKER ARTIFACT IN THE RIGHT VENTRICLE AND ATRIUM. 5) TRACE MITRAL REGURGITATION. 6) TRACE TRICUSPID REGURGITATION. - Tele - EKG Sinus Tach (127), LAFB, NORMAL INTERVALS, NORMAL QRS -continue home meds- patient has not taken in several days 10/14: -CMP, CBC reviewed -Lasix changed to 20mg IV daily -creat elevated -at baseline oxygen of 4L -balance -1560 Code(s): I50.9 - HEART FAILURE, UNSPECIFIED (2) COPD (chronic obstructive pulmonary disease) Current Visit: Yes Status: Chronic Qualifiers: COPD type: COPD with acute exacerbation Qualified Code(s): J44.1 - Chronic obstructive pulmonary disease with (acute) exacerbation Assessment & Plan: -CT reviewed as stated above -supplemental oxygen with goal spo2 88-92% - 3L at baseline - Continue Trelogy inhaler- pt will bring from home - RT eval and treat - CBC, CMP reviewed -solumedrol -azithromycin (3) D-dimer, elevated Current Visit: No Status: Acute Assessment & Plan: - Appears chronic - reviewed several past visits most recent 4.28 (10/02/24) now at 2.46 - CT negative for PE Code(s): R79.89 - OTHER SPECIFIED ABNORMAL FINDINGS OF BLOOD CHEMISTRY (4) CRF (chronic renal failure) Current Visit: No Status: Chronic Assessment & Plan: - Baseline renal function around 1.2-1.3 -Creat reviewed and at 0.96 -Monitor renal/lytes daily -avoid nephrotoxic agents 10/14: -creat reviewed and increased since yesterday but at patient's baseline- decrease lasix to 20mg IV daily (5) HTN (hypertension) Current Visit: No Status: Chronic Assessment & Plan: - restart home meds today - monitor BP/HR Code(s): I10 - ESSENTIAL (PRIMARY) HYPERTENSION (6) Hyperlipidemia Current Visit: No Status: Chronic Assessment & Plan: - Continue statin I spent 35 minutes [id number] with the patient on the day of discharge performing discharge exam, discussing hospital stay and discharge instructions with patient and caregivers, preparation of discharge records, prescriptions & referral forms and addressing any questions/concerns the patient had as documented above. - Vitals & Intake/Output Vital Signs: Vital Signs Temperature 97.1 F 10/15/24 07:21 Pulse Rate 100 H 10/15/24 10:16 Respiratory Rate 16 10/15/24 10:16 Blood Pressure 109/67 10/15/24 09:24 O2 Sat by Pulse Oximetry 98 10/15/24 10:16 Intake & Output: Intake & Output 10/13/24 10/14/24 10/15/24 10/16/24 11:59 11:59 11:59 11:59 Intake Total 1340 1617 Output Total 2900 2000 Balance -1560 -383 Weight 95.254 kg 95.5 kg 96.6 kg - Lab Result Diagrams: 10/15/24 05:41 10/15/24 05:41 Lab Results-Last 24 Hrs: Lab Results-Last 24 Hours 10/15/24 10/15/24 Range/Units 05:41 05:41 WBC 11.2 H (3.98-10.04) x10^3/uL RBC 3.89 L (3.93-5.22) x10^6/uL Hgb 10.7 L (11.2-15.7) g/dL Hct 33.8 L (34.1-44.9) % MCV 86.9 (79.4-94.8) fL MCH 27.5 (25.6-32.2) pg MCHC 31.7 L (32.2-35.5) g/dL RDW 14.8 H (11.7-14.4) % Plt Count 235 (182-369) x10^3/uL MPV 11.0 (9.4-12.3) fL Gran % 92.7 H (34.0-71.1) % Immature Gran % (Auto) 0.5 H (0.001-0.429) % Nucleat RBC Rel Count 0.0 (0.00-0.2) % Eos # (Auto) 0 L (0.04-0.36) x10^3/uL Immature Gran # (Auto) 0.06 H (0.001-0.031) x10^3u/L Absolute Lymphs (auto) 0.33 L (1.18-3.74) x10^3/uL Absolute Monos (auto) 0.41 (0.24-0.86) x10^3/uL Absolute Nucleated RBC 0.00 (0.00-0.012) x10^3u/L Lymphocytes % 3.0 L (19.3-51.7) % Monocytes % 3.7 L (4.7-12.5) % Eosinophils % 0.0 L (0.7-5.8) % Basophils % 0.1 (0.1-1.2) % Absolute Granulocytes 10.36 H (1.56-6.13) x10^3/uL Basophils # 0.01 (0.01-0.08) x10^3/uL Sodium 133 L (135-145) mmol/L Potassium 4.3 (3.5-5.1) mmol/L Chloride 95 L (98-107) mmol/L Carbon Dioxide 34 H (22-30) mmol/L Anion Gap 8.5 (5-15) MEQ/L BUN 32 H (7-17) mg/dL Creatinine 1.32 H (0.52-1.04) mg/dL Estimated GFR 43.2 ML/MIN Glucose 201 H (74-106) mg/dL Calcium 9.0 (8.4-10.2) mg/dL Total Bilirubin 0.50 (0.2-1.3) mg/dL AST 24 (14-36) U/L ALT 30 (0-35) U/L Alkaline Phosphatase 83 (38-126) U/L Serum Total Protein 6.1 L (6.3-8.2) g/dL Albumin 3.6 (3.5-5.0) g/dL Slides for Path Review YES Micro Results-Entire Visit: Microbiology 10/13/24 10:40 Blood Culture - Preliminary Blood 10/13/24 10:30 Blood Culture - Preliminary Blood - Procedures and Test Procedures and Tests throughout Hospitalization: Therapy Orders & Screens 10/13/24 17:48 Respiratory Therapy Consult ONCE Comment: Reason For Exam: Diagnosis: shortness of breath 12/10/24 23:59 Oxygen Nasal Cannula 2 lpm Comment: Diagnosis: shortness of breath 10/14/24 12:43 Respiratory MDI UD Comment: Diagnosis: shortness of breath Discharge Exam General Appearance: no apparent distress Neurologic Exam: alert, oriented x 3, cooperative Eye Exam: PERRL Ears, Nose, Throat Exam: normal ENT inspection Neck Exam: normal inspection Respiratory Exam: crackles/rales Cardiovascular Exam: regular rate/rhythm, normal heart sounds Gastrointestinal/Abdomen Exam: soft, normal bowel sounds Pelvic Exam: deferred Rectal Exam: deferred Back Exam: normal inspection Extremity Exam: normal inspection Skin Exam: normal color Wound Assessment: Skin/Wound Assessment Wound/Incision Assessment Start: 10/13/24 17:50 Text: Status: Active Freq: Q6H Protocol: Document 10/15/24 08:00 NANCY (Rec: 10/15/24 08:34 NANCY [id number]) Wound/Incision Assessment Left Lower Arm Wound Assessment Shift Assessment Wound Type Skin Tear Wound Stage Non Pressure Wound Drainage Amount None General Appearance Open to air Comment scabbed/healing skin tear to left forearm- remains true Wound Photo Photo Taken No Final Diagnosis/Problem List - Final Discharge Diagnosis/Problem (1) CHF exacerbation Current Visit: Yes Status: Acute Code(s): I50.9 - HEART FAILURE, UNSPECIFIED (2) COPD (chronic obstructive pulmonary disease) Current Visit: Yes Status: Chronic (3) D-dimer, elevated Current Visit: No Status: Acute Code(s): R79.89 - OTHER SPECIFIED ABNORMAL FINDINGS OF BLOOD CHEMISTRY (4) CRF (chronic renal failure) Current Visit: No Status: Chronic (5) HTN (hypertension) Current Visit: No Status: Chronic Code(s): I10 - ESSENTIAL (PRIMARY) HYPERTENSION (6) Hyperlipidemia Current Visit: No Status: Chronic Code(s): E78.5 - HYPERLIPIDEMIA, UNS PECIFIED - Discharge Discharge Date: 10/15/24 Disposition: Home, Self-Care Condition: Stable Prescriptions: Continue Albuterol 8 gm Mdi Hfa [Ventolin Hfa MDI] 2 puffs IH Q4H PRN PRN PRN Reason: Shortness Of Breath Atorvastatin Calcium [Lipitor] 80 mg PO HS Tramadol HCl 50 mg [Ultram 50 mg] 50 mg PO Q6HPRN PRN PRN Reason: Moderate To Severe Pain Dapagliflozin Propanediol [Farxiga] 10 mg PO DAILY Amlodipine Besylate [Norvasc] 2.5 mg PO DAILY Ranolazine 500 MG [Ranexa 500 MG] 1,000 mg PO BID Aspirin 81 gm Chew [Baby Aspirin 81 mg Chew] 81 mg PO DAILY #0 Sacubitril/Valsartan [Entresto 97 mg-103 mg Tablet] 1 each PO BID Fluticasone/Umeclidin/Vilanter [Trelegy Ellipta 200-62.5-25] 1 each IH DAILY Famotidine 20 mg PO BID Isosorbide Mononitrate 30 mg [Imdur 30 MG] 30 mg PO DAILY Albuterol/Ipratropium 3ml Neb* [DUONEB 0.5-3 MG/3 ml Neb] 3 ml IH QID Furosemide [Lasix] 20 mg PO DAILY Spironolactone 25 mg [Aldactone 25 MG] 25 mg PO DAILY PANTOPRAZOLE 40 mg Tablet [Protonix 40MG Tablet] 40 mg PO QAM Metoprolol Tartrate 50 mg [Lopressor 50 MG] 50 mg PO BID Changed Prednisone 20 mg [Deltasone 20 mg] 20 mg PO BID 5 Days #10 tablet Instructions: Heart failure in adults - Discharge instructions Follow up with: GIO ORTIZ DO [Primary Care Provider] - 10/21/24 9:45 am VICKY CHAPMAN [CONSULTING PHYSICIAN] - KULWANT ROBERTS [ACTIVE STAFF] - 10/21/24 2:00 pm
[2024-10-15 13:20] VITALS: BP 103/61; PULSE 86; TEMP 96.2; O2SAT 97
== END 2024-10-15 13:45 | disposition home or self-care (01) ==
LOC: ED 09:32 → MED SURG 17:10
PROVIDERS: ADMIT Internal Medicine; ATTEND Internal Medicine
DX: I12.9 Hypertensive chronic kidney disease with stage 1 through stage 4 chronic kidney disease, or unspecified chronic kidney disease (principal); N18.9 Chronic kidney disease, unspecified; I50.9 Heart failure, unspecified; J44.1 Chronic obstructive pulmonary disease with (acute) exacerbation; R79.89 Other specified abnormal findings of blood chemistry; E78.5 Hyperlipidemia, unspecified; J44.9 Chronic obstructive pulmonary disease, unspecified; I25.2 Old myocardial infarction; F17.200 Nicotine dependence, unspecified, uncomplicated; R60.0 Localized edema; Z99.81 Dependence on supplemental oxygen; Z79.899 Other long term (current) drug therapy
CPT/HCPCS: 0241U; 36415; 71260; 80053; 81001; 83605; 83880; 84484; 85025; 85379; 87040; 93005; 93041; 94640; 94760; 94762; 96374; 96375; 99285; Q3014; 93268; J0456; J1644; J1940; J2919; J7609; A9270-GY; G0378

== ENCOUNTER 2024-10-24 18:36 | Observation (INO) | payer MEDICARE ==
[2024-10-24] MEDS ORDERED: Zofran 4 MG/2 ML VIAL ONE (18:42)
[2024-10-24] MEDS ORDERED: Adenocard IV 6 MG/2 ML IV ONE ×2 (18:43)
[2024-10-24] MEDS ORDERED: Sodium Chloride 0.9% 1000 ML 1,000 ML ONE ×2 (18:43→19:45)
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
[2024-10-24] MEDS ORDERED: Cardizem IV 50 MG/10 ML IV ONE (19:04)
[2024-10-24] MEDS: Cardizem IV 50 MG/10 ML IV ONE (19:05)
[2024-10-24] MEDS: CARDIZEM DRIP 100 MG/100 ML D5W 100 ML IV PRN (19:06)
[2024-10-24] MEDS: Adenocard IV 6 MG/2 ML IV ONE ×2 (19:09→19:10)
[2024-10-24 19:10] LABS: Absolute Neutrophil Ct (ANC) 8.45 x10^3/uL (1.56-6.13); BASOPHIL % 0.2 % (0.1-1.2); Basophil (Absolute #) 0.02 x10^3/uL (0.01-0.08); Eosinophil % 0.6 % (0.7-5.8); Eosinophil (Absolute #) 0.07 x10^3/uL (0.04-0.36); Hematocrit 39.4 % (34.1-44.9); Hemoglobin 12.1 g/dL (11.2-15.7); IMMATURE GRAN # 0.11 x10^3u/L (0.001-0.031); Lymphocyte (Absolute #) 1.69 x10^3/uL (1.18-3.74); Mean Cell Volume 88.3 fL (79.4-94.8); Mean Corpuscular Hemoglobin 27.1 pg (25.6-32.2); Mean Corpuscular Hgb Concent. 30.7 g/dL (32.2-35.5); Mean Platelet Volume 10.5 fL (9.4-12.3); Monocyte (Absolute #) 0.95 x10^3/uL (0.24-0.86); Monocytes % 8.4 % (4.7-12.5); Neutrophil % 74.8 % (34.0-71.1); Platelet Count 248 x10^3/uL (182-369); Red Blood Count 4.46 x10^6/uL (3.93-5.22); Red Cell Distribution Width 14.7 % (11.7-14.4); White Blood Count 11.3 x10^3/uL (3.98-10.04)
[2024-10-24 19:23] LABS: A-aADO2 549; ABG HEMOGLOBIN 12.9; ABG POTASSIUM 4.9 (3.5-5.1); ARTERIAL BLD GAS O2 SATURATION 93.5 % (95-100); ARTERIAL BLOOD GAS BASE EXCESS 0.8 (-2.0-2.0); ARTERIAL BLOOD GAS FIO2 100 %; ARTERIAL BLOOD GAS PO2 74 mmHg (75-100); ARTERIAL BLOOD GAS pH 7.23 (7.35-7.45); CARBOXYHEMOGLOBIN 2.8 % THgb (0.0-6.9); HCO3- 30.2 (22-28); HGB O2 SAT 90.5 g/dF (94-100); Methhemoglobin 0.4 % (1.4-1.5); paO2 pAO1 0.12
[2024-10-24 19:24] LABS: ARTERIAL BLOOD GAS PCO2 72 mmHg (35-45)
[2024-10-24 19:37] LABS: ALBUMIN 4.1 g/dL (3.5-5.0); ANION GAP 9.8 MEQ/L (5-15); Calcium 9.5 mg/dL (8.4-10.2); Creatinine 1 1.23 mg/dL (0.52-1.04); MAGNESIUM 2.1 mg/dL (1.6-2.3); Potassium 4.4 mmol/L (3.5-5.1); Total Protein 6.5 g/dL (6.3-8.2)
[2024-10-24] MEDS: Sodium Chloride 0.9% 1000 ML 1,000 ML IV SCH (19:47)
[2024-10-24 19:48] LABS: INFLUENZA A NEGATIVE (NEGATIVE); INFLUENZA B NEGATIVE (NEGATIVE); RESPIRATORY SYNCTIAL VIRUS NEGATIVE (NEGATIVE); SARS-CoV-2 Xpert Express NEGATIVE (NEGATIVE)
[2024-10-24 19:58] LABS: TROPONIN 0.042 ng/mL (0.000-0.033)
--- NOTE | 2024-10-24 20:12 | XRAY ---
CLINICAL HISTORY: sob COMPARISON: 10/02/[address] TECHNIQUE: Single view chest radiograph in upright anteroposterior (AP) portable projection obtained. FINDINGS: Increased bronchovascular shadowing with reticulation seen in the lung morley bilaterally with patchy consolidation in the right lung lower zone, suggests infective bronchitic changes, and co-existent mild congestive changes cannot be excluded. Loss of the normal sharpness of both costophrenic angles could be due to a streak of pleural effusion or minimal pleural thickening. A slightly thickened right-sided minor fissure was seen, which could be due to pleural thickening or maybe a streak of intrafissural fluid. Apical pleural thickening was seen bilaterally, more so on the right side A pacemaker in situ in a satisfactory position. Cardiomegaly seen. Prominent kaila seen, more on the right side, either due to mild hilar lymph node enlargement or vascular congestion. Reduced mineralization of the imaged bony structures seen suggests osteopenia. Normal soft tissues. IMPRESSION: 1. Increased bronchovascular shadowing with reticulation seen in the lung morley bilaterally with patchy consolidation in the right lung lower zone, suggests infective bronchitic changes, co-existent mild congestive changes cannot be excluded, appear slightly interval progressive since prior 10/02/2023 CT. 2. Loss of the normal sharpness of both costophrenic angles seen could be due to a streak of pleural effusion or minimal pleural thickening, a new finding. 3. A slightly thickened right-sided minor fissure was seen which could be due to pleural thickening or maybe a streak of intrafissural fluid, a new finding. 4. Apical pleural thickening was seen bilaterally, more so on the right side. 5. Prominent kaila seen, more on the right side, either due to mild hilar lymph node enlargement or vascular congestion. 6. Osteopenia. 7. Clinical and lab correlation advised. Electronically Signed by: Live Euceda MD. (10/24/2024 20:07:45 EST)
[2024-10-24] MEDS ORDERED: ROCEPHIN 2 GM/100 ML NACL 2 GM/100 ML IVPB IV ONE (20:14)
[2024-10-24] MEDS: ROCEPHIN 2 GM/100 ML NACL 2 GM/100 ML IVPB IV ONE (20:15)
[2024-10-24 20:24] LABS: A-aADO2 158; ABG HEMOGLOBIN 11.4; ABG POTASSIUM 3.8 (3.5-5.1); ABG SITE RIGHT RADIAL; ALLEN TEST OK? YES; ARTERIAL BLD GAS O2 SATURATION 98.9 % (95-100); ARTERIAL BLOOD GAS BASE EXCESS 2.8 (-2.0-2.0); ARTERIAL BLOOD GAS FIO2 50 %; ARTERIAL BLOOD GAS PCO2 53 mmHg (35-45); ARTERIAL BLOOD GAS PO2 132 mmHg (75-100); ARTERIAL BLOOD GAS VENT MODE BIPAP; ARTERIAL BLOOD GAS pH 7.35 (7.35-7.45); BIPAP(E) 8; BIPAP(I) 14; CARBOXYHEMOGLOBIN 2.5 % THgb (0.0-6.9); HCO3- 29.3 (22-28); HGB O2 SAT 95.8 g/dF (94-100); Methhemoglobin 0.6 % (1.4-1.5); paO2 pAO1 0.46
[2024-10-24 20:43] LABS: ABG SITE LEFT RADIAL; ALLEN TEST OK? YES
[2024-10-24] MEDS: Zithromax 500 MG/ 250 ML NaCl Premix 500 MG/250 ML IVPB IV STA (20:54)
[2024-10-24] MEDS ORDERED: Zithromax 500 MG/ 250 ML NaCl Premix 500 MG/250 ML IVPB IV ONE (20:54)
[2024-10-24] MEDS: solu-MEDROL 125 MG, Sterile H2O 10 ml 2 ML IV ONE (21:14)
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
[2024-10-24] MEDS ORDERED: Pepcid 20 MG VIAL IV ONE (21:51)
[2024-10-24] MEDS: Pepcid 20 MG VIAL IV ONE (21:51)
[2024-10-24] MEDS ORDERED: TYLENOL 325 MG PO PRN (22:30)
[2024-10-24 23:50] LABS: Appearance Clear (Clear); Bacteria None Seen /HPF (None Seen); Bilirubin Small (Negative); Blood Negative (Negative); Epithelial Cells Moderate /HPF (None Seen); Glucose, Urine Negative (Negative); Ketones Trace (Negative); Leukocyte Esterase Negative (Negative); Nitrite Negative (Negative); Ph 5.5 (4.6-8.0); Protein,Urine Dip 100 (Negative); RBC 0-2 /HPF (0-5)
[2024-10-24] MEDS: BUMEX 1 MG IV SCH (23:54)
[2024-10-25] MEDS: DUONEB 0.5-3 MG/3 ml Neb IH SCH (00:25)
[2024-10-25] MEDS: Lopressor 50 MG PO ONE (03:50)
[2024-10-25 04:36] LABS: Hematocrit 34.3 % (34.1-44.9); Hemoglobin 10.7 g/dL (11.2-15.7); Mean Cell Volume 88.2 fL (79.4-94.8); Mean Corpuscular Hemoglobin 27.5 pg (25.6-32.2); Mean Corpuscular Hgb Concent. 31.2 g/dL (32.2-35.5); Mean Platelet Volume 10.5 fL (9.4-12.3); Platelet Count 197 x10^3/uL (182-369); Red Blood Count 3.89 x10^6/uL (3.93-5.22); Red Cell Distribution Width 15.2 % (11.7-14.4); White Blood Count 6.2 x10^3/uL (3.98-10.04)
[2024-10-25 04:40] LABS: ALBUMIN 3.4 g/dL (3.5-5.0); BILIRUBIN,TOTAL 0.6 mg/dL (0.2-1.3); Calcium 8.7 mg/dL (8.4-10.2); Creatinine 1 1.34 mg/dL (0.52-1.04); EST GLOMERULAR FILTRATION RATE 42.4 ML/MIN; PREALBUMIN 20.91 mg/dL (17.6-36.0); Potassium 4.2 mmol/L (3.5-5.1); Total Protein 5.6 g/dL (6.3-8.2)
[2024-10-25] MEDS ORDERED: solu-MEDROL ONE (04:56)
[2024-10-25] MEDS ORDERED: Sterile H2O 10 ml IJ ONE (04:56)
[2024-10-25] MEDS: solu-MEDROL 40 MG, Sterile H2O 10 ml 1 ML IV SCH (05:14)
[2024-10-25] MEDS ORDERED: MEDICATION INTERVENTION MC SCH ×2 (08:30)
[2024-10-25] MEDS ORDERED: NON-FORMULARY ITEM (Dapagliflozin Propanediol [Farxiga] 10 MG Tablet) PO SCH (10:00)
[2024-10-25] MEDS ORDERED: NON-FORMULARY ITEM (Fluticasone/Umeclidin/Vilanter [Trelegy Ellipta 200-62.5-25] 1 EACH Bl IH SCH (10:00)
[2024-10-25] MEDS ORDERED: NON-FORMULARY ITEM (Amlodipine Besylate [Norvasc] 2.5 MG Tablet) PO SCH (10:00)
[2024-10-25] MEDS ORDERED: BABY ASPIRIN 81 MG CHEW PO SCH (10:00)
[2024-10-25] MEDS: ECOTRIN 81 MG PO SCH (11:01)
[2024-10-25] MEDS: NORVASC 5 MG PO SCH (11:01)
[2024-10-25] MEDS: Imdur 30 MG PO SCH (11:01)
[2024-10-25] MEDS: Lopressor 50 MG PO SCH (11:01)
[2024-10-25] MEDS: ENOXAPARIN SODIUM SQ SCH (11:03)
[2024-10-25] MEDS: Protonix 40MG Tablet PO SCH (11:03)
[2024-10-25] MEDS: Zithromax 500 MG/ 250 ML NaCl Premix 500 MG/250 ML IVPB IV SCH (11:03)
[2024-10-25] MEDS: BUMEX 1 MG IV SCH (11:03)
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
[2024-10-25] MEDS: PATIENT OWN MEDICATION IH SCH (11:56)
--- NOTE | 2024-10-25 14:13 | PCM.NOTE ---
Date and Time: 10/25/24 1402 Subjective Assessment: 10/25/24 Ms. RIVAS is a 69 year old female with a past medical history significant for COPD/tobacco use ( 2ppd), hypertension, and CHF. She presented on to the hospital with complaints of shortness of breath. She was found to have a heart rate in the 180s and initially placed on BiPap. She was given adenosine without improvement, then started on Cardizem drip. Initial ABG with pH 7.23 improved to 7.34. She was eventually taken off Bipap and has been weaned off cardizem drip. Initial CXR demonstrated combination of bilateral pneumonia but some likely vascular congestion as well. Will obatin CT chest w/o contrast for further evaluation. Pulmonology consulted as pt has been here 3 times in the last 3 weeks. She does follow Dr. Judd CARRILLO for pulmonology. She admits she continues to smoking 2 ppd. Education provided and advised cessation. She wants to know why she keeps having SOB and is tired of coming to the hospital. Discussed again smoking and COPD are contributing. Cardiology consulted for elevated troponins most likely elevated 2:2 SVT and COPD exacerbation. She denies CP. Continue antibiotocs, steriods, breathing treatments, and trelegy inhaler for COPD exacerbation.Continue BUmex Q12 for CHF exacerbation. Continue metoprolol for HR control. She denies CP, Abd. pain, N/V/D. - Review of Systems Constitutional: No Fever, No Chills Eyes: No Symptoms Ears, Nose, & Throat: No Symptoms Respiratory: Orthopnea, Short Of Breath, No Cough Cardiac: No Chest Pain, No Edema, No Syncope Abdominal/Gastrointestinal: No Abdominal Pain, No Nausea, No Vomiting, No Diarrhea Genitourinary Symptoms: No Dysuria Musculoskeletal: No Back Pain, No Neck Pain Skin: No Rash Neurological: No Dizziness, No Focal Weakness, No Sensory Changes Psychological: No Symptoms Endocrine: No Symptoms Hematologic/Lymphatic: No Symptoms Immunological/Allergic: No Symptoms Objective Exam General Appearance: no apparent distress, alert, obese Neurologic Exam: alert, oriented x 3, cooperative, normal mood/affect, nml cerebellar function, sensation nml, No motor deficits Skin Exam: normal color, warm, dry Eye Exam: PERRL, EOMI, eyes nml inspection Ears, Nose, Throat Exam: normal ENT inspection, pharynx normal, moist mucous membranes Neck Exam: normal inspection, non-tender, supple, full range of motion Respiratory Exam: wheezing, No respiratory distress Cardiovascular Exam: regular rate/rhythm, normal heart sounds Gastrointestinal/Abdomen Exam: soft, No tenderness, No mass Extremity Exam: normal inspection, normal range of motion Back Exam: normal inspection, normal range of motion, No CVA tenderness, No vertebral tenderness Pelvic Exam: deferred Rectal Exam: deferred Objective Data Vital Signs: Vital Signs - 24 hr Temp Pulse Resp BP BP Pulse Ox 10/25/24 12:00 97.8 F 100 H 22 128/83 93 L 10/25/24 11:58 106 H 24 96 10/25/24 11:48 94 L 10/25/24 07:59 97.8 F 105 H 20 105/74 94 L 10/25/24 06:40 97 H 22 98 10/25/24 03:58 97.3 F 107 H 24 139/65 96 10/25/24 01:09 90 20 97 10/24/24 23:47 97.6 F 110 H 30 H 108/73 10/24/24 21:38 97 10/24/24 21:14 101 H 93/71 96 10/24/24 21:10 95 H 88/63 96 10/24/24 21:05 91/64 93 L 10/24/24 21:00 97/63 94 L 10/24/24 20:55 99/65 94 L 10/24/24 20:50 104/70 94 L 10/24/24 20:45 92/68 95 10/24/24 20:40 96/63 94 L 10/24/24 20:35 94/69 94 L 10/24/24 20:30 97 H 102/67 97 10/24/24 20:25 106/63 98 10/24/24 20:20 98/68 99 10/24/24 20:15 99/70 99 10/24/24 20:10 98 H 96/71 100 10/24/24 20:06 102 H 24 96/65 10/24/24 20:05 102 H 96/65 100 10/24/24 20:01 103 H 102/62 100 10/24/24 19:56 105/56 100 10/24/24 19:53 101/67 99 10/24/24 19:50 98/74 99 10/24/24 19:45 104 H 95/67 99 10/24/24 19:40 104 H 102/68 99 10/24/24 19:36 107/69 98 10/24/24 19:31 106 H 99/67 97 10/24/24 19:26 111/72 97 10/24/24 19:21 128/73 97 10/24/24 19:15 131/75 97 10/24/24 19:11 105 H 126/84 97 10/24/24 19:06 182 H 34 H 123/96 10/24/24 18:56 28 H 97 10/24/24 18:55 97 10/24/24 18:41 177 H 22 97 Pain Assessment - Last Documented Pain Intensity 5 Intake and Output: Intake & Output 10/23/24 10/24/24 10/25/24 10/26/24 11:59 11:59 11:59 11:59 Intake Total 120 Output Total 900 200 Balance -900 -80 Weight 97.6 kg Lab Results: Lab Results-Last 24 Hours 10/24/24 10/24/24 10/24/24 Range/Units 18:45 19:06 19:06 WBC 11.3 H (3.98-10.04) x10^3/uL RBC 4.46 (3.93-5.22) x10^6/uL Hgb 12.1 (11.2-15.7) g/dL Hct 39.4 (34.1-44.9) % MCV 88.3 (79.4-94.8) fL MCH 27.1 (25.6-32.2) pg MCHC 30.7 L (32.2-35.5) g/dL RDW 14.7 H (11.7-14.4) % Plt Count 248 (182-369) x10^3/uL MPV 10.5 (9.4-12.3) fL Gran % 74.8 H (34.0-71.1) % Immature Gran % (Auto) 1.0 H (0.001-0.429) % Nucleat RBC Rel Count 0.0 (0.00-0.2) % Eos # (Auto) 0.07 (0.04-0.36) x10^3/uL Immature Gran # (Auto) 0.11 H (0.001-0.031) x10^3u/L Absolute Lymphs (auto) 1.69 (1.18-3.74) x10^3/uL Absolute Monos (auto) 0.95 H (0.24-0.86) x10^3/uL Absolute Nucleated RBC 0.00 (0.00-0.012) x10^3u/L Lymphocytes % 15.0 L (19.3-51.7) % Monocytes % 8.4 (4.7-12.5) % Eosinophils % 0.6 L (0.7-5.8) % Basophils % 0.2 (0.1-1.2) % Absolute Granulocytes 8.45 H (1.56-6.13) x10^3/uL Basophils # 0.02 (0.01-0.08) x10^3/uL Puncture Site pCO2 (35-45) mmHg pO2 (75-100) mmHg Base Excess (-2.0-2.0) O2 Saturation (94-100) g/dF ABG pH (7.35-7.45) ABG HCO3 (22-28) ABG O2 Sat (Measured) (95-100) % Hiro Test A-a Gradient a/A Ratio Hemoglobin Carboxyhemoglobin (0.0-6.9) % THgb Methemoglobin (1.4-1.5) % Temperature C POC O2 Flow Rate % Vent Mode Inspiratory BiPAP Expiratory BiPAP Sodium 136 (135-145) mmol/L Potassium 4.4 (3.5-5.1) mmol/L Chloride 100 (98-107) mmol/L Carbon Dioxide 31 H (22-30) mmol/L Anion Gap 9.8 (5-15) MEQ/L BUN 21 H (7-17) mg/dL Creatinine 1.23 H (0.52-1.04) mg/dL Estimated GFR 47.0 ML/MIN Glucose 146 H (74-106) mg/dL Lactic Acid (0.4-2.0) Calcium 9.5 (8.4-10.2) mg/dL Magnesium 2.1 (1.6-2.3) mg/dL Total Bilirubin 1.00 (0.2-1.3) mg/dL AST 43 H (14-36) U/L ALT 47 H (0-35) U/L Alkaline Phosphatase 85 (38-126) U/L Troponin I 0.042 H* (0.000-0.033) ng/mL NT-Pro-B Natriuret Pep (<300) pg/mL Serum Total Protein 6.5 (6.3-8.2) g/dL Albumin 4.1 (3.5-5.0) g/dL Prealbumin (17.6-36.0) mg/dL Urine Color Dark Yellow A (Yellow) Urine Appearance Clear (Clear) Urine pH 5.5 (4.6-8.0) Ur Specific [place] 1.020 (1.005-1.030) Urine Protein 100 A (Negative) Urine Glucose (UA) Negative (Negative) mg/dL Urine Ketones Trace A (Negative) Urine Blood Negative (Negative) Urine Nitrite Negative (Negative) Urine Bilirubin Small A (Negative) Urine Urobilinogen 1.0 A (0.2) mg/dL Ur Leukocyte Esterase Negative (Negative) U Hyaline Cast (Auto) 6-10 A (0-2) /LPF Urine Microscopic RBC 0-2 (0-5) /HPF Urine Microscopic WBC 3-5 (0-5) /HPF Ur Epithelial Cells Moderate A (None Seen) /HPF Urine Bacteria None Seen (None Seen) /HPF Urine Culture Reflexed NO (NO) Influenza Type A Ag (NEGATIVE) Influenza Type B Ag (NEGATIVE) RSV (PCR) (NEGATIVE) SARS-CoV-2 (PCR) (NEGATIVE) 10/24/24 10/24/24 10/24/24 Range/Units 19:07 19:07 19:15 WBC (3.98-10.04) x10^3/uL RBC (3.93-5.22) x10^6/uL Hgb (11.2-15.7) g/dL Hct (34.1-44.9) % MCV (79.4-94.8) fL MCH (25.6-32.2) pg MCHC (32.2-35.5) g/dL RDW (11.7-14.4) % Plt Count (182-369) x10^3/uL MPV (9.4-12.3) fL Gran % (34.0-71.1) % Immature Gran % (Auto) (0.001-0.429) % Nucleat RBC Rel Count (0.00-0.2) % Eos # (Auto) (0.04-0.36) x10^3/uL Immature Gran # (Auto) (0.001-0.031) x10^3u/L Absolute Lymphs (auto) (1.18-3.74) x10^3/uL Absolute Monos (auto) (0.24-0.86) x10^3/uL Absolute Nucleated RBC (0.00-0.012) x10^3u/L Lymphocytes % (19.3-51.7) % Monocytes % (4.7-12.5) % Eosinophils % (0.7-5.8) % Basophils % (0.1-1.2) % Absolute Granulocytes (1.56-6.13) x10^3/uL Basophils # (0.01-0.08) x10^3/uL Puncture Site pCO2 (35-45) mmHg pO2 (75-100) mmHg Base Excess (-2.0-2.0) O2 Saturation (94-100) g/dF ABG pH (7.35-7.45) ABG HCO3 (22-28) ABG O2 Sat (Measured) (95-100) % Hiro Test A-a Gradient a/A Ratio Hemoglobin Carboxyhemoglobin (0.0-6.9) % THgb Methemoglobin (1.4-1.5) % Temperature C POC O2 Flow Rate % Vent Mode Inspiratory BiPAP Expiratory BiPAP Sodium (135-145) mmol/L Potassium (3.5-5.1) mmol/L Chloride (98-107) mmol/L Carbon Dioxide (22-30) mmol/L Anion Gap (5-15) MEQ/L BUN (7-17) mg/dL Creatinine (0.52-1.04) mg/dL Estimated GFR ML/MIN Glucose (74-106) mg/dL Lactic Acid 4.4 H (0.4-2.0) Calcium (8.4-10.2) mg/dL Magnesium (1.6-2.3) mg/dL Total Bilirubin (0.2-1.3) mg/dL AST (14-36) U/L ALT (0-35) U/L Alkaline Phosphatase (38-126) U/L Troponin I (0.000-0.033) ng/mL NT-Pro-B Natriuret Pep 9650 (<300) pg/mL Serum Total Protein (6.3-8.2) g/dL Albumin (3.5-5.0) g/dL Prealbumin (17.6-36.0) mg/dL Urine Color (Yellow) Urine Appearance (Clear) Urine pH (4.6-8.0) Ur Specific [place] (1.005-1.030) Urine Protein (Negative) Urine Glucose (UA) (Negative) mg/dL Urine Ketones (Negative) Urine Blood (Negative) Urine Nitrite (Negative) Urine Bilirubin (Negative) Urine Urobilinogen (0.2) mg/dL Ur Leukocyte Esterase (Negative) U Hyaline Cast (Auto) (0-2) /LPF Urine Microscopic RBC (0-5) /HPF Urine Microscopic WBC (0-5) /HPF Ur Epithelial Cells (None Seen) /HPF Urine Bacteria (None Seen) /HPF Urine Culture Reflexed (NO) Influenza Type A Ag NEGATIVE (NEGATIVE) Influenza Type B Ag NEGATIVE (NEGATIVE) RSV (PCR) NEGATIVE (NEGATIVE) SARS-CoV-2 (PCR) NEGATIVE (NEGATIVE) 10/24/24 10/24/24 10/24/24 Range/Units 19:18 20:19 20:20 WBC (3.98-10.04) x10^3/uL RBC (3.93-5.22) x10^6/uL Hgb (11.2-15.7) g/dL Hct (34.1-44.9) % MCV (79.4-94.8) fL MCH (25.6-32.2) pg MCHC (32.2-35.5) g/dL RDW (11.7-14.4) % Plt Count (182-369) x10^3/uL MPV (9.4-12.3) fL Gran % (34.0-71.1) % Immature Gran % (Auto) (0.001-0.429) % Nucleat RBC Rel Count (0.00-0.2) % Eos # (Auto) (0.04-0.36) x10^3/uL Immature Gran # (Auto) (0.001-0.031) x10^3u/L Absolute Lymphs (auto) (1.18-3.74) x10^3/uL Absolute Monos (auto) (0.24-0.86) x10^3/uL Absolute Nucleated RBC (0.00-0.012) x10^3u/L Lymphocytes % (19.3-51.7) % Monocytes % (4.7-12.5) % Eosinophils % (0.7-5.8) % Basophils % (0.1-1.2) % Absolute Granulocytes (1.56-6.13) x10^3/uL Basophils # (0.01-0.08) x10^3/uL Puncture Site LEFT RADIAL RIGHT RADIAL pCO2 72 H* 53 H (35-45) mmHg pO2 74 L 132 H* (75-100) mmHg Base Excess 0.8 2.8 H (-2.0-2.0) O2 Saturation 90.5 L 95.8 (94-100) g/dF ABG pH 7.23 L* 7.35 (7.35-7.45) ABG HCO3 30.2 H* 29.3 H* (22-28) ABG O2 Sat (Measured) 93.5 L 98.9 (95-100) % Hiro Test YES YES A-a Gradient 549 158 a/A Ratio 0.12 0.46 Hemoglobin 12.9 11.4 Carboxyhemoglobin 2.8 2.5 (0.0-6.9) % THgb Methemoglobin 0.4 L 0.6 L (1.4-1.5) % Temperature 37.0 37.0 C POC O2 Flow Rate 100 50 % Vent Mode BIPAP Inspiratory BiPAP 14 Expiratory BiPAP 8 Sodium (135-145) mmol/L Potassium 4.9 3.8 (3.5-5.1) mmol/L Chloride (98-107) mmol/L Carbon Dioxide (22-30) mmol/L Anion Gap (5-15) MEQ/L BUN (7-17) mg/dL Creatinine (0.52-1.04) mg/dL Estimated GFR ML/MIN Glucose (74-106) mg/dL Lactic Acid 1.4 (0.4-2.0) Calcium (8.4-10.2) mg/dL Magnesium (1.6-2.3) mg/dL Total Bilirubin (0.2-1.3) mg/dL AST (14-36) U/L ALT (0-35) U/L Alkaline Phosphatase (38-126) U/L Troponin I (0.000-0.033) ng/mL NT-Pro-B Natriuret Pep (<300) pg/mL Serum Total Protein (6.3-8.2) g/dL Albumin (3.5-5.0) g/dL Prealbumin (17.6-36.0) mg/dL Urine Color (Yellow) Urine Appearance (Clear) Urine pH (4.6-8.0) Ur Specific [place] (1.005-1.030) Urine Protein (Negative) Urine Glucose (UA) (Negative) mg/dL Urine Ketones (Negative) Urine Blood (Negative) Urine Nitrite (Negative) Urine Bilirubin (Negative) Urine Urobilinogen (0.2) mg/dL Ur Leukocyte Esterase (Negative) U Hyaline Cast (Auto) (0-2) /LPF Urine Microscopic RBC (0-5) /HPF Urine Microscopic WBC (0-5) /HPF Ur Epithelial Cells (None Seen) /HPF Urine Bacteria (None Seen) /HPF Urine Culture Reflexed (NO) Influenza Type A Ag (NEGATIVE) Influenza Type B Ag (NEGATIVE) RSV (PCR) (NEGATIVE) SARS-CoV-2 (PCR) (NEGATIVE) 10/24/24 10/25/24 10/25/24 Range/Units 22:53 04:05 04:05 WBC 6.2 (3.98-10.04) x10^3/uL RBC 3.89 L (3.93-5.22) x10^6/uL Hgb 10.7 L (11.2-15.7) g/dL Hct 34.3 (34.1-44.9) % MCV 88.2 (79.4-94.8) fL MCH 27.5 (25.6-32.2) pg MCHC 31.2 L (32.2-35.5) g/dL RDW 15.2 H (11.7-14.4) % Plt Count 197 (182-369) x10^3/uL MPV 10.5 (9.4-12.3) fL Gran % (34.0-71.1) % Immature Gran % (Auto) (0.001-0.429) % Nucleat RBC Rel Count (0.00-0.2) % Eos # (Auto) (0.04-0.36) x10^3/uL Immature Gran # (Auto) (0.001-0.031) x10^3u/L Absolute Lymphs (auto) (1.18-3.74) x10^3/uL Absolute Monos (auto) (0.24-0.86) x10^3/uL Absolute Nucleated RBC (0.00-0.012) x10^3u/L Lymphocytes % (19.3-51.7) % Monocytes % (4.7-12.5) % Eosinophils % (0.7-5.8) % Basophils % (0.1-1.2) % Absolute Granulocytes (1.56-6.13) x10^3/uL Basophils # (0.01-0.08) x10^3/uL Puncture Site pCO2 (35-45) mmHg pO2 (75-100) mmHg Base Excess (-2.0-2.0) O2 Saturation (94-100) g/dF ABG pH (7.35-7.45) ABG HCO3 (22-28) ABG O2 Sat (Measured) (95-100) % Hiro Test A-a Gradient a/A Ratio Hemoglobin Carboxyhemoglobin (0.0-6.9) % THgb Methemoglobin (1.4-1.5) % Temperature C POC O2 Flow Rate % Vent Mode Inspiratory BiPAP Expiratory BiPAP Sodium (135-145) mmol/L Potassium (3.5-5.1) mmol/L Chloride (98-107) mmol/L Carbon Dioxide (22-30) mmol/L Anion Gap (5-15) MEQ/L BUN (7-17) mg/dL Creatinine (0.52-1.04) mg/dL Estimated GFR ML/MIN Glucose (74-106) mg/dL Lactic Acid (0.4-2.0) Calcium (8.4-10.2) mg/dL Magnesium (1.6-2.3) mg/dL Total Bilirubin (0.2-1.3) mg/dL AST (14-36) U/L ALT (0-35) U/L Alkaline Phosphatase (38-126) U/L Troponin I 0.062 H* 0.074 H* (0.000-0.033) ng/mL NT-Pro-B Natriuret Pep (<300) pg/mL Serum Total Protein (6.3-8.2) g/dL Albumin (3.5-5.0) g/dL Prealbumin (17.6-36.0) mg/dL Urine Color (Yellow) Urine Appearance (Clear) Urine pH (4.6-8.0) Ur Specific [place] (1.005-1.030) Urine Protein (Negative) Urine Glucose (UA) (Negative) mg/dL Urine Ketones (Negative) Urine Blood (Negative) Urine Nitrite (Negative) Urine Bilirubin (Negative) Urine Urobilinogen (0.2) mg/dL Ur Leukocyte Esterase (Negative) U Hyaline Cast (Auto) (0-2) /LPF Urine Microscopic RBC (0-5) /HPF Urine Microscopic WBC (0-5) /HPF Ur Epithelial Cells (None Seen) /HPF Urine Bacteria (None Seen) /HPF Urine Culture Reflexed (NO) Influenza Type A Ag (NEGATIVE) Influenza Type B Ag (NEGATIVE) RSV (PCR) (NEGATIVE) SARS-CoV-2 (PCR) (NEGATIVE) 10/25/24 10/25/24 Range/Units 04:05 07:45 WBC (3.98-10.04) x10^3/uL RBC (3.93-5.22) x10^6/uL Hgb (11.2-15.7) g/dL Hct (34.1-44.9) % MCV (79.4-94.8) fL MCH (25.6-32.2) pg MCHC (32.2-35.5) g/dL RDW (11.7-14.4) % Plt Count (182-369) x10^3/uL MPV (9.4-12.3) fL Gran % (34.0-71.1) % Immature Gran % (Auto) (0.001-0.429) % Nucleat RBC Rel Count (0.00-0.2) % Eos # (Auto) (0.04-0.36) x10^3/uL Immature Gran # (Auto) (0.001-0.031) x10^3u/L Absolute Lymphs (auto) (1.18-3.74) x10^3/uL Absolute Monos (auto) (0.24-0.86) x10^3/uL Absolute Nucleated RBC (0.00-0.012) x10^3u/L Lymphocytes % (19.3-51.7) % Monocytes % (4.7-12.5) % Eosinophils % (0.7-5.8) % Basophils % (0.1-1.2) % Absolute Granulocytes (1.56-6.13) x10^3/uL Basophils # (0.01-0.08) x10^3/uL Puncture Site pCO2 (35-45) mmHg pO2 (75-100) mmHg Base Excess (-2.0-2.0) O2 Saturation (94-100) g/dF ABG pH (7.35-7.45) ABG HCO3 (22-28) ABG O2 Sat (Measured) (95-100) % Hiro Test A-a Gradient a/A Ratio Hemoglobin Carboxyhemoglobin (0.0-6.9) % THgb Methemoglobin (1.4-1.5) % Temperature C POC O2 Flow Rate % Vent Mode Inspiratory BiPAP Expiratory BiPAP Sodium 139 (135-145) mmol/L Potassium 4.2 (3.5-5.1) mmol/L Chloride 104 (98-107) mmol/L Carbon Dioxide 32 H (22-30) mmol/L Anion Gap 7.0 (5-15) MEQ/L BUN 22 H (7-17) mg/dL Creatinine 1.34 H (0.52-1.04) mg/dL Estimated GFR 42.4 ML/MIN Glucose 109 H (74-106) mg/dL Lactic Acid (0.4-2.0) Calcium 8.7 (8.4-10.2) mg/dL Magnesium (1.6-2.3) mg/dL Total Bilirubin 0.60 (0.2-1.3) mg/dL AST 37 H (14-36) U/L ALT 45 H (0-35) U/L Alkaline Phosphatase 80 (38-126) U/L Troponin I 0.071 H* (0.000-0.033) ng/mL NT-Pro-B Natriuret Pep (<300) pg/mL Serum Total Protein 5.6 L (6.3-8.2) g/dL Albumin 3.4 L (3.5-5.0) g/dL Prealbumin 20.91 (17.6-36.0) mg/dL Urine Color (Yellow) Urine Appearance (Clear) Urine pH (4.6-8.0) Ur Specific [place] (1.005-1.030) Urine Protein (Negative) Urine Glucose (UA) (Negative) mg/dL Urine Ketones (Negative) Urine Blood (Negative) Urine Nitrite (Negative) Urine Bilirubin (Negative) Urine Urobilinogen (0.2) mg/dL Ur Leukocyte Esterase (Negative) U Hyaline Cast (Auto) (0-2) /LPF Urine Microscopic RBC (0-5) /HPF Urine Microscopic WBC (0-5) /HPF Ur Epithelial Cells (None Seen) /HPF Urine Bacteria (None Seen) /HPF Urine Culture Reflexed (NO) Influenza Type A Ag (NEGATIVE) Influenza Type B Ag (NEGATIVE) RSV (PCR) (NEGATIVE) SARS-CoV-2 (PCR) (NEGATIVE) Radiology Exams: Radiology Procedures Category Date Time Status CHEST 1 VIEW (PORTABLE) Stat Exams 10/24/24 18:46 Completed Assessment/Plan (1) COPD exacerbation Current Visit: Yes Status: Acute Assessment & Plan: - 4lNC at baseline- 93% - IV antibiotics, steroids, xoponex, Trelogy - Pulmonology consulted but not available and out of town until 11/02 - CXR: 2. Loss of the normal sharpness of both costophrenic angles seen could be due to a streak of pleural effusion or minimal pleural thickening, a new finding. 3. A slightly thickened right-sided minor fissure was seen which could be due to pleural thickening or maybe a streak of intrafissural fluid, a new finding. 4. Apical pleural thickening was seen bilaterally, more so on the right side. 5. Prominent kaila seen, more on the right side, either due to mild hilar lymph node enlargement or vascular congestion. 6. Osteopenia. 7. Clinical and lab correlation advised. - Chest CT w/o contrast pending Code(s): J44.1 - CHRONIC OBSTRUCTIVE PULMONARY DISEASE W (ACUTE) EXACERBATION (2) CHF exacerbation Current Visit: Yes Status: Acute Assessment & Plan: - Bumex 1mg IV BID - Tele - Entreso, metoprolol, ASA - Cardiology consult - Echo 12/06/23 EF 50% IMPRESSION: 1) MILD CONCENTRIC LEFT VENTRICULAR HYPERTROPHY. 2) LOW NORMAL LEFT VENTRICULAR SYSTOLIC FUNCTION. 3) DIASTOLIC DYSFUNCTION. 4) PACEMAKER ARTIFACT IN THE RIGHT VENTRICLE AND ATRIUM. 5) TRACE MITRAL REGURGITATION. 6) TRACE TRICUSPID REGURGITATION. Code(s): I50.9 - HEART FAILURE, UNSPECIFIED (3) Tachycardia Current Visit: Yes Status: Acute Assessment & Plan: - HR low 100's - Continue metoprolol - Duonebs changed to xoponex Code(s): R00.0 - TACHYCARDIA, UNSPECIFIED (4) Acute kidney injury Current Visit: Yes Status: Acute Assessment & Plan: - Creat 1.34, baseline 1.23- trend - Is getting Bumex BID Code(s): N17.9 - ACUTE KIDNEY FAILURE, UNSPECIFIED (5) Elevated troponin Current Visit: Yes Status: Acute Assessment & Plan: - Trop 0.042, 0.062, 0.074 - cardiology consulted - denies CP - tele Code(s): R79.89 - OTHER SPECIFIED ABNORMAL FINDINGS OF BLOOD CHEMISTRY (6) Respiratory acidosis Current Visit: Yes Status: Acute Assessment & Plan: - Co2 32 - Was placed on bipap in ER- now 4lNC baseline. - See above COPD plan Code(s): E87.29 - OTHER ACIDOSIS (7) Obesity (BMI 30-39.9) Current Visit: Yes Status: Acute Assessment & Plan: - Advised low sodium diet and exercise as recommended by pulm and cardiology Code(s): E66.9 - OBESITY, UNSPECIFIED (8) SVT (supraventricular tachycardia) Current Visit: Yes Status: Resolved Assessment & Plan: - resolved VTE: Lovenox PPI: Protonix Next of KIN: Blaine rivas [phone] D/C plan: 2-3 days Code status: Full Code(s): I47.10 - SUPRAVENTRICULAR TACHYCARDIA, UNSPECIFIED
--- NOTE | 2024-10-25 16:33 | XRAY ---
CLINICAL HISTORY: abnormal CT chest COMPARISON: CT dated 10/13/2024. TECHNIQUE: CT of the chest without IV contrast was performed. Coronal and sagittal reconstructions were also obtained. One of the following dose-reduction techniques was utilized for this exam. Automated exposure control, adjustment of the mA and/or kV according to patient size, and use of iterative reconstruction. FINDINGS: Bilateral moderate pleural effusion is more on the right side, with underlying related lower lobe atelectasis showing mild interval progression. There are bilateral areas of geographic ground glass opacities, predominantly peripheral reticular opacities, septal thickening, and multiple atelectratic bands in the treated portions of the lungs (stable). Paraseptal and centriacinar emphysematous changes noted in both lungs are more dominant in the upper lobes (stable). No pulmonary nodules or masses. Heart size is enlarged (stable). No pericardial effusion. Atheromatous calcifications in the thoracic aorta and coronary arteries. Cardiac pacemaker with its leads at the right ventricle. Patent tracheobronchial tree. Small calcified mediastinal lymph nodes (stable). There is no definite mass lesion in the chest wall. Degenerative changes are seen in the visualized spine. The scanned upper abdomen shows multiple splenic calcifications and post-cholecystectomy. IMPRESSION: 1. Bilateral moderate pleural effusion is more on the right side, with underlying related lower lobe atelectasis showing mild interval progression. 2. COPD and interstitial pulmonary changes (stable). 3. Cardiomegaly with a pacemaker in place (stable). Electronically Signed by: Live Euceda MD. (10/25/2024 15:12:20 EST)
[2024-10-25] MEDS: Xopenex 1.25 MG/0.5 ML UD NEBULE IH PRN (18:52)
[2024-10-25] MEDS: Sodium Chloride 3 ML UD NEBULES IH PRN (18:52)
[2024-10-25] MEDS: ZOCOR 20MG PO SCH (21:32)
[2024-10-25] MEDS: ROCEPHIN 1 GM / 100 ML NaCl 1 GM/100 ML IVPB IV SCH (21:33)
[2024-10-25] MEDS ORDERED: LIPITOR 40MG PO SCH (22:00)
[2024-10-26 04:51] LABS: Hematocrit 35.9 % (34.1-44.9); Mean Cell Volume 87.6 fL (79.4-94.8); Mean Corpuscular Hemoglobin 26.8 pg (25.6-32.2); Mean Corpuscular Hgb Concent. 30.6 g/dL (32.2-35.5); Mean Platelet Volume 10.6 fL (9.4-12.3); Platelet Count 228 x10^3/uL (182-369)
[2024-10-26] MEDS: PATIENT OWN MEDICATION IH SCH (04:52)
--- NOTE | 2024-10-26 05:13 | PCM.NOTE ---
Date and Time: 10/26/24 0509 Subjective Assessment: HPI: Ms. PDERAZA is a 69 year old female with a past medical history significant for COPD/tobacco use ( 2ppd), hypertension, and CHF admitted with COPD/CHF exacerbation after presenting to ED with complaints of shortness of breath. CXR demonstrated combination of bilateral pneumonia but some likely vascular congestion In ED patient was tachycardic with HR in the 180s and initially placed on BiPap. She was given adenosine without improvement, then started on Cardizem drip. Initial ABG with pH 7.23 improved to 7.34. Initial lab findings remarkable for leukocytosis with WBC at 11.3, elevated troponins, and elevated BNP. Creat is elevated but at baseline for patient. Respiratory panel negative. Patient has been taken off Bipap and weaned off cardizem drip. IP treatment with ceftriaxone/azithromycin, solu-medrol, xopenex, and bumex. CT chest w/o contrast demonstrates bilateral moderate pleural effusion is more on the right side, with underlying related lower lobe atelectasis showing mild interval progression. COPD and interstitial pulmonary changes (stable). Cardiomegaly with a pacemaker in place (stable). Pulmonology consulted as pt has been here 3 times in the last 3 weeks. She does follow Dr. Judd CARRILLO for pulmonology who is currently unavailable for consult as he is out of town until 11/02/24. She admits she continues to smoking 2 ppd. Education provided and advised cessation. Cardiology consulted with recommendations to continue metoprolol and eliquis. Gentle diuresis with lasix po 40mg daily. Echo showing moderate LV dilation and moderate concentric LVH. Serverely reduced LV function. EF at 15-20%. Moderate left atrial enlargement. Mild mitral valve regurgitation. No pericardial effusion. Grade IIdiastolic dysfunction with elevated left atrial pressure. Cardiology following patient appreciate recommendations. 10/26/24: Met with patient bedside. Endorses increased shortness of breath, wheezing, and productive cough with yellow sputum. Patient states her appetite is poor due to her shortness of breath. Patient has been compliant with CPAP during hospit alization and would like to have for home use. Plan to continue home trelegy, add budosenide, flutter, and increase steroids. Denies fever,cp, abdominal pain, RANDLE, dizziness, N/V/D. - Review of Systems Constitutional: Fatigue, Weakness Eyes: No Symptoms, Foreign Body Sensation Respiratory: Cough, Short Of Breath, Wheezing Cardiac: No Symptoms Abdominal/Gastrointestinal: No Symptoms Genitourinary Symptoms: No Symptoms Musculoskeletal: No Symptoms Skin: No Symptoms Neurological: No Symptoms Psychological: No Symptoms Endocrine: No Symptoms Hematologic/Lymphatic: No Symptoms Immunological/Allergic: No Symptoms Objective Exam General Appearance: no apparent distress Neurologic Exam: alert, oriented x 3, cooperative Skin Exam: pale Eye Exam: PERRL Ears, Nose, Throat Exam: normal ENT inspection Neck Exam: normal inspection Respiratory Exam: diminished breath sounds, crackles/rales, wheezing Cardiovascular Exam: regular rate/rhythm, normal heart sounds Gastrointestinal/Abdomen Exam: soft, normal bowel sounds Extremity Exam: normal inspection Back Exam: normal inspection Pelvic Exam: deferred Rectal Exam: deferred Objective Data Vital Signs: Vital Signs - 24 hr Temp Pulse Resp BP Pulse Ox 10/26/24 04:50 107 H 18 98 10/26/24 03:00 105 H 20 134/87 95 10/25/24 23:20 97.5 F 102 H 12 117/62 92 L 10/25/24 19:24 98.1 F 100 H 22 154/87 95 10/25/24 18:55 111 H 18 95 10/25/24 16:00 97.5 F 110 H 20 133/90 91 L 10/25/24 15:46 94 L 10/25/24 12:00 97.8 F 100 H 22 128/83 93 L 10/25/24 11:58 106 H 24 96 10/25/24 07:59 97.8 F 105 H 20 105/74 94 L 10/25/24 06:40 97 H 22 98 Pain Assessment - Last Documented Pain Intensity 0 Intake and Output: Intake & Output 10/23/24 10/24/24 10/25/24 10/26/24 11:59 11:59 11:59 11:59 Intake Total 980 Output Total 900 1000 Balance -900 -20 Weight 97.6 kg Lab Results: Lab Results-Last 24 Hours 10/25/24 10/26/24 Range/Units 07:45 04:22 WBC 8.0 (3.98-10.04) x10^3/uL RBC 4.10 (3.93-5.22) x10^6/uL Hgb 11.0 L (11.2-15.7) g/dL Hct 35.9 (34.1-44.9) % MCV 87.6 (79.4-94.8) fL MCH 26.8 (25.6-32.2) pg MCHC 30.6 L (32.2-35.5) g/dL RDW 15.0 H (11.7-14.4) % Plt Count 228 (182-369) x10^3/uL MPV 10.6 (9.4-12.3) fL Troponin I 0.071 H* (0.000-0.033) ng/mL Radiology Exams: Radiology Procedures Category Date Time Status CHEST 1 VIEW (PORTABLE) Stat Exams 10/24/24 18:46 Completed CHEST WITHOUT CONTRAST [CT] Routine Exams 10/25/24 14:23 Completed Multi-Disciplinary Progress Notes: Multi-Disciplinary Progress Notes 10/25/24 15:18 Respiratory Note by Dorothy Jerome PT STATES SHE HAS A CPAP MACHINE AT HOME BUT IT IS CURRENTLY BROKEN. SHE SAID [facility] IS IN THE PROCESS OF REPLACING IT. PT SAYS HER SETTINGS ARE 6CMH2O WITH 3-4L OXYGEN. WILL ORDER CPAP PER PT'S HOME SETTINGS. PT WILL USE OUR MACHINE WHILE HERE. Initialized on 10/25/24 15:18 - END OF NOTE Assessment/Plan (1) COPD exacerbation Current Visit: Yes Status: Acute Assessment & Plan: - 4lNC at baseline-supplemental oxygen with goal spo2 88-92% - Continue azithromycin/ceftriaxone and solumedrol -Xopenex prn changed to duonebs -Continue home Trelogy add budosenide - Pulmonology consulted but not available and out of town until 11/02 - CXR reviewed demonstrating a loss of the normal sharpness of both costophrenic angles seen could be due to a streak of pleural effusion or minimal pleural thickening, a new finding. A slightly thickened right-sided minor fissure was seen which could be due to pleural thickening or maybe a streak of intrafissural fluid, a new finding. Apical pleural thickening was seen bilaterally, more so on the right side. Prominent kaila seen, more on the right side, either due to mild hilar lymph node enlargement or vascular congestion. - Chest CT w/o contrast reviewed showing bilateral moderate pleural effusion is more on the right side, with underlying related lower lobe atelectasis showing mild interval progression. COPD and interstitial pulmonary changes (stable). Cardiomegaly with a pacemaker in place (stable). Code(s): J44.1 - CHRONIC OBSTRUCTIVE PULMONARY DISEASE W (ACUTE) EXACERBATION (2) CHF exacerbation Current Visit: Yes Status: Acute Assessment & Plan: - Cardiology consulted and documenation reviewed with recommendations to continue metoprolol and eliquis. Gentle diuresis with lasix po 40mg daily - dc bumex - - Tele - Continue home Entresto, metoprolol, ASA - Echo 12/06/23 EF 50% IMPRESSION: 1) MILD CONCENTRIC LEFT VENTRICULAR HYPERTROPHY. 2) LOW NORMAL LEFT VENTRICULAR SYSTOLIC FUNCTION. 3) DIASTOLIC DYSFUNCTION. 4) PACEMAKER ARTIFACT IN THE RIGHT VENTRICLE AND ATRIUM. 5) TRACE MITRAL REGURGITATION. 6) TRACE TRICUSPID REGURGITATION. -Echo reviewed from 10/24/24 -Moderate LV dilation and moderate concentric LVH. Serverely reduced LV function. EF at 15-20%. Moderate left atrial enlargement. Mild mitral valve regurgitation. No pericardial effusion. Grade II diastolic dysfunction with elevated left atrial pressure. -Cardiology following- will reach out for further recommendations based on echo findings Code(s): I50.9 - HEART FAILURE, UNSPECIFIED (3) Acute kidney injury Current Visit: Yes Status: Acute Assessment & Plan: - Creat reviewed and at 1.63 >1.34 and baseline 1.23- trend - Discontinue Bumex BID and add lasix 40mg daily Code(s): N17.9 - ACUTE KIDNEY FAILURE, UNSPECIFIED (4) Elevated troponin Current Visit: Yes Status: Acute Assessment & Plan: - Trop reviewed - cardiology consulted with recommendations to continue metoprolol and eliquis. Gentle diuresis with lasix po 40mg daily. Echo pending. - tele Code(s): R79.89 - OTHER SPECIFIED ABNORMAL FINDINGS OF BLOOD CHEMISTRY (5) Obesity (BMI 30-39.9) Current Visit: Yes Status: Acute Assessment & Plan: Advised low sodium diet and exercise as recommended by pulm and cardiology Code(s): E66.9 - OBESITY, UNSPECIFIED (6) Respiratory acidosis Current Visit: Yes Status: Acute Assessment & Plan: - Co2 reviewed - Was placed on bipap in ER- weaned - now 4lNC baseline - See above COPD plan Code(s): E87.29 - OTHER ACIDOSIS (7) Tachycardia Current Visit: Yes Status: Acute Assessment & Plan: - Continue metoprolol - Duonebs changed to xoponex Code(s): R00.0 - TACHYCARDIA, UNSPECIFIED (8) SVT (supraventricular tachycardia) Current Visit: Yes Status: Resolved Assessment & Plan: - resolved VTE: Lovenox PPI: Protonix Next of KIN: Blaine Pedraza [phone] D/C plan: 2-3 days Code status: Full Code(s): I47.10 - SUPRAVENTRICULAR TACHYCARDIA, UNSPECIFIED (9) Atrial fibrillation Current Visit: Yes Status: Acute Assessment & Plan: -HR controlled - cardizem drip d/cd -Recs for metoprolol and eliquis -Echo findings as stated above Code(s): I48.91 - UNSPECIFIED ATRIAL FIBRILLATION
[2024-10-26 05:23] LABS: ALBUMIN 4.2 g/dL (3.5-5.0); BILIRUBIN,TOTAL 0.5 mg/dL (0.2-1.3); Calcium 9.2 mg/dL (8.4-10.2); Creatinine 1 1.63 mg/dL (0.52-1.04); EST GLOMERULAR FILTRATION RATE 33.5 ML/MIN; Potassium 4.7 mmol/L (3.5-5.1); Total Protein 6.7 g/dL (6.3-8.2)
[2024-10-26] MEDS: ELIQUIS 2.5 MG TABLET PO SCH (09:26)
[2024-10-26] MEDS: Lasix 40 MG PO SCH (09:26)
[2024-10-26] MEDS: Zithromax 500 MG/ 250 ML NaCl Premix 500 MG/250 ML IVPB IV SCH (09:27)
--- NOTE | 2024-10-26 17:32 | PCM.NOTE ---
Date and Time: 10/26/241726 Subjective Assessment: Pt still has shortness of breath. CT chest showed pleural effusions. LVEF 15-20% on echo; previously pt states LVEF was 30% Exam General:: alert and oriented x 4, mild distress HEENT: PERRLA, EOMI Cardiovascular: Regular Rate & Rhythm, no murmurs,rubs,gallops Respiratory:: normal breath sounds Abdominal: soft Extremity Exam: pedal edema Neurologic: warble saw operator II-XII grossly intact Objective Data Vital Signs: Vital Signs - 24 hr Temp Pulse Resp BP Pulse Ox 10/26/24 15:00 97.8 F 108 H 16 135/99 97 10/26/24 13:28 98 10/26/24 11:00 98.4 F 90 16 137/85 87 L 10/26/24 07:00 97.9 F 105 H 16 127/82 95 10/26/24 04:50 107 H 18 98 10/26/24 03:00 105 H 20 134/87 95 10/25/24 23:20 97.5 F 102 H 12 117/62 92 L 10/25/24 19:24 98.1 F 100 H 22 154/87 95 10/25/24 18:55 111 H 18 95 Pain Assessment - Last Documented Pain Intensity 0 Intake and Output: Intake & Output 10/24/24 10/25/24 10/26/24 10/27/24 11:59 11:59 11:59 11:59 Intake Total 980 Output Total 900 1400 250 Balance -900 -420 -250 Weight 97.6 kg LAB: I have reviewed the Labs in [facility] Lab Results: Lab Results-Last 24 Hours 10/26/24 10/26/24 Range/Units 04:22 04:22 WBC 8.0 (3.98-10.04) x10^3/uL RBC 4.10 (3.93-5.22) x10^6/uL Hgb 11.0 L (11.2-15.7) g/dL Hct 35.9 (34.1-44.9) % MCV 87.6 (79.4-94.8) fL MCH 26.8 (25.6-32.2) pg MCHC 30.6 L (32.2-35.5) g/dL RDW 15.0 H (11.7-14.4) % Plt Count 228 (182-369) x10^3/uL MPV 10.6 (9.4-12.3) fL Sodium 136 (135-145) mmol/L Potassium 4.7 (3.5-5.1) mmol/L Chloride 100 (98-107) mmol/L Carbon Dioxide 30 (22-30) mmol/L Anion Gap 11.0 (5-15) MEQ/L BUN 32 H (7-17) mg/dL Creatinine 1.63 H (0.52-1.04) mg/dL Estimated GFR 33.5 ML/MIN Glucose 240 H (74-106) mg/dL Calcium 9.2 (8.4-10.2) mg/dL Total Bilirubin 0.50 (0.2-1.3) mg/dL AST 50 H (14-36) U/L ALT 76 H (0-35) U/L Alkaline Phosphatase 90 (38-126) U/L Serum Total Protein 6.7 (6.3-8.2) g/dL Albumin 4.2 (3.5-5.0) g/dL Radiology Exams: Radiology Procedures Category Date Time Status CHEST 1 VIEW (PORTABLE) Stat Exams 10/24/24 18:46 Completed CHEST WITHOUT CONTRAST [CT] Routine Exams 10/25/24 14:23 Completed ECHO W/2D AND DOPPLER [US] Routine Exams 10/26/24 07:35 Taken - ECHO Last ECHO: EF 15-20% Echo: interpreted by me Multi-Disciplinary Progress Notes: Multi-Disciplinary Progress Notes 10/26/24 13:37 Respiratory Note by Dorothy Jerome PT'S SLEEP STUDY FAXED TO [facility] IN [place]. Initialized on 10/26/24 13:37 - END OF NOTE Assessment & Plan (1) CHF (congestive heart failure) Current Visit: Yes Status: Acute Qualifiers: Heart failure type: combined systolic and diastolic Heart failure chronicity: acute on chronic Qualified Code(s): I50.43 - Acute on chronic combined systolic (congestive) and diastolic (congestive) heart failure Assessment & Plan: - LVEF 15-20%. Still short of breath with CT on admission with pleural effusions. - Stop PO lasix and switch to lasix 40 mg IV BID - Goal net UOP -1.5 to -2.5 L per day - Monitor I/O, daily weights, electrolytes, renal function - monitor and replete lytes PRN - Stop metoprolol tartrate and switch to same dose Toprol XL - C/w Entresto, spironolactone, Farxiga - Pt states she had LHC in July and did not need coronary intervention - Close outpatient cardiology f/u on discharge. EKG and tele showing NSR Code(s): I50.9 - HEART FAILURE, UNSPECIFIED - Encounter Encounter: "The entirety of this encounter was performed via Telemedicine using audio and visual "
[2024-10-26] MEDS: PULMICORT 0.5 MG/2 ML RESPULES IH SCH ×2 (18:54→22:14)
[2024-10-26] MEDS: Lasix 40 MG/4 ML IV SCH (21:28)
[2024-10-27 05:30] LABS: Absolute Neutrophil Ct (ANC) 8.92 x10^3/uL (1.56-6.13); Basophil (Absolute #) 0 x10^3/uL (0.01-0.08); Eosinophil (Absolute #) 0 x10^3/uL (0.04-0.36); Hematocrit 33.6 % (34.1-44.9); Hemoglobin 10.5 g/dL (11.2-15.7); IMMATURE GRAN # 0.08 x10^3u/L (0.001-0.031); IMMATURE GRAN % 0.8 % (0.001-0.429); Lymphocyte (Absolute #) 0.35 x10^3/uL (1.18-3.74); Lymphocytes % 3.6 % (19.3-51.7); Mean Corpuscular Hemoglobin 27.2 pg (25.6-32.2); Mean Corpuscular Hgb Concent. 31.3 g/dL (32.2-35.5); Monocyte (Absolute #) 0.35 x10^3/uL (0.24-0.86); Monocytes % 3.6 % (4.7-12.5); Platelet Count 214 x10^3/uL (182-369); Red Blood Count 3.86 x10^6/uL (3.93-5.22); Red Cell Distribution Width 15.2 % (11.7-14.4); White Blood Count 9.7 x10^3/uL (3.98-10.04)
[2024-10-27 05:47] LABS: ALBUMIN 3.9 g/dL (3.5-5.0); ANION GAP 11.6 MEQ/L (5-15); BILIRUBIN,TOTAL 0.4 mg/dL (0.2-1.3); Calcium 9.1 mg/dL (8.4-10.2); Creatinine 1 1.62 mg/dL (0.52-1.04); EST GLOMERULAR FILTRATION RATE 33.8 ML/MIN; Potassium 4.2 mmol/L (3.5-5.1); Total Protein 6.3 g/dL (6.3-8.2)
[2024-10-27 09:16] LABS: Slide Review 1 YES
[2024-10-27] MEDS: Toprol Xl 100 MG PO SCH (11:14)
[2024-10-27] MEDS: ENTRESTO 49 MG-51 MG TABLET PO SCH (11:14)
[2024-10-27] MEDS: Aldactone 25 MG PO SCH (11:15)
--- NOTE | 2024-10-27 11:46 | PCM.NOTE ---
Date and Time: 10/27/24 1136 Subjective Assessment: Patient reports dyspnea improved. No chest pain. She still has moderate cough. She feels like she injured a muscle from coughing. No fever. She is wheezing. No edema. No abdominal pain, nausea or vomiting. - Review of Systems Constitutional: No Symptoms, No Fever, No Chills Eyes: No Symptoms Ears, Nose, & Throat: No Symptoms Respiratory: Cough, Short Of Breath Cardiac: No Symptoms, No Chest Pain, No Palpitations Abdominal/Gastrointestinal: No Symptoms, No Abdominal Pain, No Nausea, No Vomiting, No Diarrhea Genitourinary Symptoms: No Symptoms, No Dysuria Musculoskeletal: No Symptoms Skin: No Symptoms Neurological: No Symptoms Psychological: No Symptoms Endocrine: No Symptoms Hematologic/Lymphatic: No Symptoms Immunological/Allergic: No Symptoms All Other Systems: Reviewed and Negative Objective Exam General Appearance: mild distress Neurologic Exam: alert, oriented x 3, cooperative Skin Exam: normal color, warm, dry Eye Exam: PERRL, EOMI, eyes nml inspection Ears, Nose, Throat Exam: normal ENT inspection Neck Exam: normal inspection, non-tender, supple Lymphatic Exam: No adenopathy Respiratory Exam: prolonged expirations, crackles/rales, wheezing Cardiovascular Exam: regular rate/rhythm, normal heart sounds Gastrointestinal/Abdomen Exam: soft, normal bowel sounds, No tenderness Extremity Exam: normal inspection, normal range of motion Back Exam: normal inspection Pelvic Exam: deferred Rectal Exam: deferred Objective Data Vital Signs: Vital Signs - 24 hr Temp Pulse Resp BP Pulse Ox 10/27/24 11:00 96.8 F 97 H 14 148/90 95 10/27/24 07:37 90 20 98 10/27/24 07:00 97.3 F 89 15 142/99 96 10/27/24 03:00 96.3 F 101 H 20 145/94 94 L 10/26/24 23:00 97.4 F 97 H 20 128/77 90 L 10/26/24 19:00 97.6 F 109 H 18 115/80 97 10/26/24 15:00 97.8 F 108 H 16 135/99 97 10/26/24 13:28 98 Pain Assessment - Last Documented Pain Intensity 0 Intake and Output: Intake & Output 10/24/24 10/25/24 10/26/24 10/27/24 11:59 11:59 11:59 11:59 Intake Total 980 1055 Output Total 900 3854 500 Balance -900 -955 083 Weight 97.6 kg Lab Results: Lab Results-Last 24 Hours 10/27/24 10/27/24 Range/Units 05:20 05:20 WBC 9.7 (3.98-10.04) x10^3/uL RBC 3.86 L (3.93-5.22) x10^6/uL Hgb 10.5 L (11.2-15.7) g/dL Hct 33.6 L (34.1-44.9) % MCV 87.0 (79.4-94.8) fL MCH 27.2 (25.6-32.2) pg MCHC 31.3 L (32.2-35.5) g/dL RDW 15.2 H (11.7-14.4) % Plt Count 214 (182-369) x10^3/uL MPV 11.0 (9.4-12.3) fL Gran % 92.0 H (34.0-71.1) % Immature Gran % (Auto) 0.8 H (0.001-0.429) % Nucleat RBC Rel Count 0.0 (0.00-0.2) % Eos # (Auto) 0 L (0.04-0.36) x10^3/uL Immature Gran # (Auto) 0.08 H (0.001-0.031) x10^3u/L Absolute Lymphs (auto) 0.35 L (1.18-3.74) x10^3/uL Absolute Monos (auto) 0.35 (0.24-0.86) x10^3/uL Absolute Nucleated RBC 0.00 (0.00-0.012) x10^3u/L Lymphocytes % 3.6 L (19.3-51.7) % Monocytes % 3.6 L (4.7-12.5) % Eosinophils % 0.0 L (0.7-5.8) % Basophils % 0.0 L (0.1-1.2) % Absolute Granulocytes 8.92 H (1.56-6.13) x10^3/uL Basophils # 0 L (0.01-0.08) x10^3/uL Sodium 136 (135-145) mmol/L Potassium 4.2 (3.5-5.1) mmol/L Chloride 97 L (98-107) mmol/L Carbon Dioxide 31 H (22-30) mmol/L Anion Gap 11.6 (5-15) MEQ/L BUN 45 H (7-17) mg/dL Creatinine 1.62 H (0.52-1.04) mg/dL Estimated GFR 33.8 ML/MIN Glucose 286 H (74-106) mg/dL Calcium 9.1 (8.4-10.2) mg/dL Total Bilirubin 0.40 (0.2-1.3) mg/dL AST 43 H (14-36) U/L ALT 79 H (0-35) U/L Alkaline Phosphatase 81 (38-126) U/L Serum Total Protein 6.3 (6.3-8.2) g/dL Albumin 3.9 (3.5-5.0) g/dL Slides for Path Review YES Radiology Exams: Radiology Procedures Category Date Time Status CHEST WITHOUT CONTRAST [CT] Routine Exams 10/25/24 14:23 Completed ECHO W/2D AND DOPPLER [US] Routine Exams 10/26/24 07:35 Taken Multi-Disciplinary Progress Notes: Multi-Disciplinary Progress Notes 10/26/24 13:37 Respiratory Note by Dorothy Jerome PT'S SLEEP STUDY FAXED TO [facility]. Initialized on 10/26/24 13:37 - END OF NOTE Assessment/Plan (1) CHF (congestive heart failure) Current Visit: Yes Status: Acute Qualifiers: Heart failure type: combined systolic and diastolic Heart failure chronicity: acute on chronic Qualified Code(s): I50.43 - Acute on chronic combined systolic (congestive) and diastolic (congestive) heart failure Assessment & Plan: Assessment/Plan (1) COPD exacerbation Current Visit: Yes Status: Acute Assessment & Plan: - Oxygen at 4L,. At baseline - Continue azithromycin/ceftriaxone and solumedrol -Xopenex prn changed to duonebs -Continue home Trelogy add budosenide - Pulmonology consulted but not available and out of town until 11/02 (2) CHF exacerbation Current Visit: Yes Status: Acute Assessment & Plan: -Cardiology consulted -Cardiology recommends change to IV Lasix -Cardiology recommends change to Metoprolol succinate -Cardiology recommends continue Eliquis, Entresto and Farxiga - Echo 12/06/23 EF 50% -Patient had LHC in July. No intervention (3) Acute kidney injury Current Visit: Yes Status: Acute Assessment & Plan: Cr stable at 1.62 Cardiology recommends IV Lasix (4) Elevated troponin Current Visit: Yes Status: Acute Assessment & Plan: -Cardiology consulted with recommendations to continue metoprolol and eliquis. -LHC in July showed no need for intervention (5) Obesity (BMI 30-39.9) Current Visit: Yes Status: Acute Assessment & Plan: Advised low sodium diet and exercise as recommended by pulm and cardiology (6) Respiratory acidosis Current Visit: Yes Status: Acute Assessment & Plan: - Co2 reviewed - Was placed on bipap in ER- weaned - now 4lNC baseline - See above COPD plan (7) Tachycardia Current Visit: Yes Status: Acute Assessment & Plan: - Continue metoprolol - Duonebs changed to xoponex (8) Atrial fibrillation Current Visit: Yes Status: Acute Assessment & Plan: -HR controlled -Continue metoprolol and eliquis Code(s): I50.9 - HEART FAILURE, UNSPECIFIED Telemedicine Encounter - Telemedicine Encounter Telemedicine Encounter: "The entirety of this encounter was performed via Telemedicine" This visit was performed using real-time audio and video connection between my location and thepatients locationwith the assistance of a surrogateat the patients location. Written or verbal consent was obtained from the patient/guardian to perform this visit [email or web address]. Any patient questions regarding the telemedicine interaction were answered.
[2024-10-28] MEDS: Tums EX 750 MG PO PRN (02:51)
[2024-10-28 07:42] LABS: Absolute Neutrophil Ct (ANC) 7.84 x10^3/uL (1.56-6.13); BASOPHIL % 0.1 % (0.1-1.2); Basophil (Absolute #) 0.01 x10^3/uL (0.01-0.08); Eosinophil (Absolute #) 0 x10^3/uL (0.04-0.36); Hemoglobin 10.8 g/dL (11.2-15.7); IMMATURE GRAN # 0.06 x10^3u/L (0.001-0.031); IMMATURE GRAN % 0.7 % (0.001-0.429); Lymphocyte (Absolute #) 0.24 x10^3/uL (1.18-3.74); Lymphocytes % 2.8 % (19.3-51.7); Mean Cell Volume 90.2 fL (79.4-94.8); Mean Corpuscular Hemoglobin 27.1 pg (25.6-32.2); Mean Platelet Volume 10.9 fL (9.4-12.3); Monocyte (Absolute #) 0.31 x10^3/uL (0.24-0.86); Monocytes % 3.7 % (4.7-12.5); Neutrophil % 92.7 % (34.0-71.1); Platelet Count 204 x10^3/uL (182-369); Red Blood Count 3.99 x10^6/uL (3.93-5.22); Red Cell Distribution Width 14.9 % (11.7-14.4); White Blood Count 8.5 x10^3/uL (3.98-10.04)
[2024-10-28 08:00] LABS: ALBUMIN 3.6 g/dL (3.5-5.0); ANION GAP 11.8 MEQ/L (5-15); BILIRUBIN,TOTAL 0.6 mg/dL (0.2-1.3); Creatinine 1 1.33 mg/dL (0.52-1.04); EST GLOMERULAR FILTRATION RATE 42.8 ML/MIN; Potassium 3.9 mmol/L (3.5-5.1); Total Protein 5.6 g/dL (6.3-8.2)
--- NOTE | 2024-10-28 11:57 | PCM.NOTE ---
Date and Time: 10/28/24 1151 Subjective Assessment: Patient reports dyspnea improved. Currently on 3L oxygen. She has cough productive of yellow sputum. She reports mild burning in chest from antibiotics. No edema. No fever. No abdominal pain, nausea or vomiting. - Review of Systems Constitutional: No Symptoms, No Fever, No Chills Eyes: No Symptoms Ears, Nose, & Throat: No Symptoms Respiratory: Cough, Short Of Breath Cardiac: No Symptoms, No Chest Pain, No Edema, No Palpitations Abdominal/Gastrointestinal: No Symptoms, No Abdominal Pain, No Nausea, No Vomiting, No Diarrhea Genitourinary Symptoms: No Symptoms, No Dysuria, No Frequency, No Hematuria Musculoskeletal: No Symptoms Skin: No Symptoms Neurological: No Symptoms Psychological: No Symptoms Endocrine: No Symptoms Hematologic/Lymphatic: No Symptoms Immunological/Allergic: No Symptoms All Other Systems: Reviewed and Negative Objective Exam General Appearance: no apparent distress Neurologic Exam: alert, oriented x 3, cooperative Skin Exam: normal color, warm, dry Eye Exam: PERRL, EOMI, eyes nml inspection Ears, Nose, Throat Exam: normal ENT inspection Neck Exam: normal inspection, non-tender Lymphatic Exam: No adenopathy Respiratory Exam: crackles/rales, No wheezing Cardiovascular Exam: regular rate/rhythm, normal heart sounds Gastrointestinal/Abdomen Exam: soft, normal bowel sounds, No tenderness Extremity Exam: normal inspection Back Exam: normal inspection Pelvic Exam: deferred Rectal Exam: deferred Objective Data Vital Signs: Vital Signs - 24 hr Temp Pulse Resp BP Pulse Ox 10/28/24 11:00 97.8 F 89 16 129/80 98 10/28/24 07:17 82 18 96 10/28/24 07:00 98.6 F 82 16 134/81 93 L 10/28/24 03:00 96.7 F 84 20 124/70 93 L 10/27/24 23:34 97.3 F 77 20 123/61 95 10/27/24 20:00 97.9 F 101 H 19 133/74 93 L 10/27/24 19:42 84 18 95 10/27/24 16:00 96.6 F 95 H 18 144/77 92 L Pain Assessment - Last Documented Pain Intensity 0 Intake and Output: Intake & Output 10/25/24 10/26/24 10/27/24 10/28/24 11:59 11:59 11:59 11:59 Intake Total 980 1051 1366 Output Total 900 [phone] Balance -344 -091 581 -2090 Weight 97.6 kg Lab Results: Lab Results-Last 24 Hours 10/28/24 10/28/24 Range/Units 06:52 06:52 WBC 8.5 (3.98-10.04) x10^3/uL RBC 3.99 (3.93-5.22) x10^6/uL Hgb 10.8 L (11.2-15.7) g/dL Hct 36.0 (34.1-44.9) % MCV 90.2 (79.4-94.8) fL MCH 27.1 (25.6-32.2) pg MCHC 30.0 L (32.2-35.5) g/dL RDW 14.9 H (11.7-14.4) % Plt Count 204 (182-369) x10^3/uL MPV 10.9 (9.4-12.3) fL Gran % 92.7 H (34.0-71.1) % Immature Gran % (Auto) 0.7 H (0.001-0.429) % Nucleat RBC Rel Count 0.0 (0.00-0.2) % Eos # (Auto) 0 L (0.04-0.36) x10^3/uL Immature Gran # (Auto) 0.06 H (0.001-0.031) x10^3u/L Absolute Lymphs (auto) 0.24 L (1.18-3.74) x10^3/uL Absolute Monos (auto) 0.31 (0.24-0.86) x10^3/uL Absolute Nucleated RBC 0.00 (0.00-0.012) x10^3u/L Lymphocytes % 2.8 L (19.3-51.7) % Monocytes % 3.7 L (4.7-12.5) % Eosinophils % 0.0 L (0.7-5.8) % Basophils % 0.1 (0.1-1.2) % Absolute Granulocytes 7.84 H (1.56-6.13) x10^3/uL Basophils # 0.01 (0.01-0.08) x10^3/uL Sodium 136 (135-145) mmol/L Potassium 3.9 (3.5-5.1) mmol/L Chloride 93 L (98-107) mmol/L Carbon Dioxide 36 H (22-30) mmol/L Anion Gap 11.8 (5-15) MEQ/L BUN 37 H (7-17) mg/dL Creatinine 1.33 H (0.52-1.04) mg/dL Estimated GFR 42.8 ML/MIN Glucose 325 H (74-106) mg/dL Calcium 9.0 (8.4-10.2) mg/dL Total Bilirubin 0.60 (0.2-1.3) mg/dL AST 46 H (14-36) U/L ALT 87 H (0-35) U/L Alkaline Phosphatase 83 (38-126) U/L Serum Total Protein 5.6 L (6.3-8.2) g/dL Albumin 3.6 (3.5-5.0) g/dL Assessment/Plan (1) CHF (congestive heart failure) Current Visit: Yes Status: Acute Qualifiers: Heart failure type: combined systolic and diastolic Heart failure chronicity: acute on chronic Qualified Code(s): I50.43 - Acute on chronic combined systolic (congestive) and diastolic (congestive) heart failure Assessment & Plan: Assessment/Plan (1) COPD exacerbation Current Visit: Yes Status: Acute Assessment & Plan: -Oxygen at 3L -Her baseline is 4L at home -Change to oral antibiotics and oral steroids -Continue Xopenex prn changed to duonebsy add budosenide -Pulmonology consulted but not available and out of town until 11/02 (2) CHF exacerbation Current Visit: Yes Status: Acute Assessment & Plan: -Cardiology consulted -Continue IV Lasix -Continue Metoprolol succina -Continue Eliquis, Entresto and Farxiga -Echo 12/06/23 shows EF=50% -Patient had LHC in July. No intervention required (3) Acute kidney injury Current Visit: Yes Status: Acute Assessment & Plan: -Cr improved at 1.33 (4) Elevated troponin Current Visit: Yes Status: Acute Assessment & Plan: -Cardiology consulted with recommendations to continue metoprolol and eliquis. -LHC in July showed no need for intervention (5) Obesity (BMI 30-39.9) Current Visit: Yes Status: Acute Assessment & Plan: Advised low sodium diet and exercise as recommended by pulm and cardiology (6) Respiratory acidosis Current Visit: Yes Status: Acute Assessment & Plan: -Co2 reviewed -Was placed on bipap in ER- weaned - now 4lNC baseline -See above COPD plan (7) Tachycardia Current Visit: Yes Status: Acute Assessment & Plan: -Continue metoprolol -Duonebs changed to xoponex (8) Atrial fibrillation Current Visit: Yes Status: Acute Assessment & Plan: -HR controlled -Continue metoprolol and eliquis Code(s): I50.9 - HEART FAILURE, UNSPECIFIED Telemedicine Encounter - Telemedicine Encounter Telemedicine Encounter: "The entirety of this encounter was performed via Telemedicine" This visit was performed using real-time audio and video connection between my location and thepatients locationwith the assistance of a surrogateat the patients location. Written or verbal consent was obtained from the patient/guardian to perform this visit [facility]. Any patient questions regarding the telemedicine interaction were answered.
[2024-10-28 13:33] LABS: Slide Review 1 YES
[2024-10-28] MEDS: CEFTIN 500 MG PO SCH (21:18)
[2024-10-28] MEDS: DELTASONE 20 MG PO SCH (21:19)
--- NOTE | 2024-10-29 04:59 | PCM.NOTE ---
Date and Time: 10/29/24 0454 Subjective Assessment: HPI: Ms. RIVAS is a 69 year old female with a past medical history significant for COPD/tobacco use ( 2ppd), hypertension, and CHF admitted with COPD/CHF exacerbation after presenting to ED with complaints of shortness of breath. CXR demonstrated combination of bilateral pneumonia but some likely vascular congestion In ED patient was tachycardic with HR in the 180s and initially placed on BiPap. She was given adenosine without improvement, then started on Cardizem drip. Initial ABG with pH 7.23 improved to 7.34. Initial lab findings remarkable for leukocytosis with WBC at 11.3, elevated troponins, and elevated BNP. Creat is elevated but at baseline for patient. Respiratory panel negative. Patient has been taken off Bipap and weaned off cardizem drip. IP treatment with ceftriaxone/azithromycin, solu-medrol, xopenex, and bumex. CT chest w/o contrast demonstrates bilateral moderate pleural effusion is more on the right side, with underlying related lower lobe atelectasis showing mild interval progression. COPD and interstitial pulmonary changes (stable). Cardiomegaly with a pacemaker in place (stable). Pulmonology consulted as pt has been here 3 times in the last 3 weeks. She does follow Dr. Judd CARRILLO for pulmonology who is currently unavailable for consult as he is out of town until 11/02/24. She admits she continues to smoking 2 ppd. Education provided and advised cessation. Cardiology consulted with recommendations to continue metoprolol and eliquis. Gentle diuresis with lasix po 40mg daily. Echo showing moderate LV dilation and moderate concentric LVH. Serverely reduced LV function. EF at 15-20%. Moderate left atrial enlargement. Mild mitral valve regurgitation. No pericardial effusion. Grade IIdiastolic dysfunction with elevated left atrial pressure. Cardiology following patient recommends Eliquis, Entresto and Farxiga. Objective Data Vital Signs: Vital Signs - 24 hr Temp Pulse Resp BP Pulse Ox 10/29/24 03:00 97.0 F 74 18 123/64 96 10/28/24 23:00 96.9 F 82 20 128/82 10/28/24 19:23 86 16 96 10/28/24 19:00 97.1 F 78 19 117/68 95 10/28/24 15:00 98.1 F 88 16 133/85 96 10/28/24 11:00 97.8 F 89 16 129/80 98 10/28/24 07:17 82 18 96 10/28/24 07:00 98.6 F 82 16 134/81 93 L Pain Assessment - Last Documented Pain Intensity 0 Intake and Output: Intake & Output 10/26/24 10/27/24 10/28/24 10/29/24 11:59 11:59 11:59 11:59 Intake Total 980 1055 1366 280 Output Total 2782 355 2861 1600 Balance -420 463 -4455 -7486 Lab Results: Lab Results-Last 24 Hours 10/28/24 10/28/24 Range/Units 06:52 06:52 WBC 8.5 (3.98-10.04) x10^3/uL RBC 3.99 (3.93-5.22) x10^6/uL Hgb 10.8 L (11.2-15.7) g/dL Hct 36.0 (34.1-44.9) % MCV 90.2 (79.4-94.8) fL MCH 27.1 (25.6-32.2) pg MCHC 30.0 L (32.2-35.5) g/dL RDW 14.9 H (11.7-14.4) % Plt Count 204 (182-369) x10^3/uL MPV 10.9 (9.4-12.3) fL Gran % 92.7 H (34.0-71.1) % Immature Gran % (Auto) 0.7 H (0.001-0.429) % Nucleat RBC Rel Count 0.0 (0.00-0.2) % Eos # (Auto) 0 L (0.04-0.36) x10^3/uL Immature Gran # (Auto) 0.06 H (0.001-0.031) x10^3u/L Absolute Lymphs (auto) 0.24 L (1.18-3.74) x10^3/uL Absolute Monos (auto) 0.31 (0.24-0.86) x10^3/uL Absolute Nucleated RBC 0.00 (0.00-0.012) x10^3u/L Lymphocytes % 2.8 L (19.3-51.7) % Monocytes % 3.7 L (4.7-12.5) % Eosinophils % 0.0 L (0.7-5.8) % Basophils % 0.1 (0.1-1.2) % Absolute Granulocytes 7.84 H (1.56-6.13) x10^3/uL Basophils # 0.01 (0.01-0.08) x10^3/uL Sodium 136 (135-145) mmol/L Potassium 3.9 (3.5-5.1) mmol/L Chloride 93 L (98-107) mmol/L Carbon Dioxide 36 H (22-30) mmol/L Anion Gap 11.8 (5-15) MEQ/L BUN 37 H (7-17) mg/dL Creatinine 1.33 H (0.52-1.04) mg/dL Estimated GFR 42.8 ML/MIN Glucose 325 H (74-106) mg/dL Calcium 9.0 (8.4-10.2) mg/dL Total Bilirubin 0.60 (0.2-1.3) mg/dL AST 46 H (14-36) U/L ALT 87 H (0-35) U/L Alkaline Phosphatase 83 (38-126) U/L Serum Total Protein 5.6 L (6.3-8.2) g/dL Albumin 3.6 (3.5-5.0) g/dL Slides for Path Review YES Assessment/Plan (1) COPD exacerbation Current Visit: Yes Status: Acute Assessment & Plan: - 4lNC at baseline-supplemental oxygen with goal spo2 88-92% - Continue azithromycin/ceftriaxone and solumedrol -Xopenex prn changed to duonebs -Continue home Trelogy add budosenide - Pulmonology consulted but not available and out of town until 11/02 - CXR reviewed demonstrating a loss of the normal sharpness of both costophrenic angles seen could be due to a streak of pleural effusion or minimal pleural thickening, a new finding. A slightly thickened right-sided minor fissure was seen which could be due to pleural thickening or maybe a streak of intrafissural fluid, a new finding. Apical pleural thickening was seen bilaterally, more so on the right side. Prominent kaila seen, more on the right side, either due to mild hilar lymph node enlargement or vascular congestion. - Chest CT w/o contrast reviewed showing bilateral moderate pleural effusion is more on the right side, with underlying related lower lobe atelectasis showing mild interval progression. COPD and interstitial pulmonary changes (stable). Cardiomegaly with a pacemaker in place (stable). Code(s): J44.1 - CHRONIC OBSTRUCTIVE PULMONARY DISEASE W (ACUTE) EXACERBATION (2) CHF exacerbation Current Visit: Yes Status: Acute Assessment & Plan: - Cardiology consulted and documenation reviewed with recommendations to continue metoprolol and eliquis -IV lasix per cardiology- dc bumex - Tele - Continue home Entresto, metoprolol, ASA -Echo reviewed from 10/24/24 -Moderate LV dilation and moderate concentric LVH. Serverely reduced LV function. EF at 15-20%. Moderate left atrial enlargement. Mild mitral valve regurgitation. No pericardial effusion. Grade II diastolic dysfunction with elevated left atrial pressure. -Cardiology following- recommendations based on current echo findings continue Eliquis, Entresto and Farxiga -Patient had [facility] in July. No intervention required Code(s): I50.9 - HEART FAILURE, UNSPECIFIED (3) Acute kidney injury Current Visit: Yes Status: Acute Assessment & Plan: - Creat reviewed and at and baseline 1.23- trend Code(s): N17.9 - ACUTE KIDNEY FAILURE, UNSPECIFIED (4) Elevated troponin Current Visit: Yes Status: Acute Assessment & Plan: - Trop reviewed - cardiology consulted with recommendations to continue metoprolol and eliquis. Gentle diuresis with lasix po 40mg daily. Echo pending. - tele Code(s): R79.89 - OTHER SPECIFIED ABNORMAL FINDINGS OF BLOOD CHEMISTRY (5) Obesity (BMI 30-39.9) Current Visit: Yes Status: Acute Assessment & Plan: Advised low sodium diet and exercise as recommended by pulm and cardiology Code(s): E66.9 - OBESITY, UNSPECIFIED (6) Respiratory acidosis Current Visit: Yes Status: Acute Assessment & Plan: - Co2 reviewed - Was placed on bipap in ER- weaned - now 4lNC baseline - See above COPD plan Code(s): E87.29 - OTHER ACIDOSIS (7) Tachycardia Current Visit: Yes Status: Acute Assessment & Plan: - Continue metoprolol - Duonebs changed to xoponex Code(s): R00.0 - TACHYCARDIA, UNSPECIFIED (8) SVT (supraventricular tachycardia) Current Visit: Yes Status: Resolved Assessment & Plan: - resolved VTE: Lovenox PPI: Protonix Next of KIN: Blaine Rivas [phone] D/C plan: 2-3 days Code status: Full Code(s): I47.10 - SUPRAVENTRICULAR TACHYCARDIA, UNSPECIFIED (9) Atrial fibrillation Current Visit: Yes Status: Acute Assessment & Plan: -HR controlled - cardizem drip d/cd -Recs for metoprolol and eliquis -Echo findings as stated above Code(s): I48.91 - UNSPECIFIED ATRIAL FIBRILLATION Code(s): J44.1 - CHRONIC OBSTRUCTIVE PULMONARY DISEASE W (ACUTE) EXACERBATION (2) CHF exacerbation Current Visit: Yes Status: Acute Code(s): I50.9 - HEART FAILURE, UNSPECIFIED (3) Acute kidney injury Current Visit: Yes Status: Acute Code(s): N17.9 - ACUTE KIDNEY FAILURE, UNSPECIFIED (4) Elevated troponin Current Visit: Yes Status: Acute Code(s): R79.89 - OTHER SPECIFIED ABNORMAL FINDINGS OF BLOOD CHEMISTRY (5) Obesity (BMI 30-39.9) Current Visit: Yes Status: Acute Code(s): E66.9 - OBESITY, UNSPECIFIED (6) Respiratory acidosis Current Visit: Yes Status: Acute Code(s): E87.29 - OTHER ACIDOSIS (7) Tachycardia Current Visit: Yes Status: Acute Code(s): R00.0 - TACHYCARDIA, UNSPECIFIED (8) SVT (supraventricular tachycardia) Current Visit: Yes Status: Resolved Code(s): I47.10 - SUPRAVENTRICULAR TACHYCARDIA, UNSPECIFIED (9) Atrial fibrillation Current Visit: Yes Status: Acute Code(s): I48.91 - UNSPECIFIED ATRIAL FIBRILLATION
[2024-10-29 06:22] LABS: Absolute Neutrophil Ct (ANC) 7.77 x10^3/uL (1.56-6.13); Basophil (Absolute #) 0 x10^3/uL (0.01-0.08); Eosinophil % 0.1 % (0.7-5.8); Eosinophil (Absolute #) 0.01 x10^3/uL (0.04-0.36); Hematocrit 36.3 % (34.1-44.9); Hemoglobin 11.6 g/dL (11.2-15.7); IMMATURE GRAN # 0.02 x10^3u/L (0.001-0.031); IMMATURE GRAN % 0.2 % (0.001-0.429); Lymphocyte (Absolute #) 0.38 x10^3/uL (1.18-3.74); Lymphocytes % 4.4 % (19.3-51.7); Mean Cell Volume 85.8 fL (79.4-94.8); Mean Corpuscular Hemoglobin 27.4 pg (25.6-32.2); Mean Platelet Volume 10.9 fL (9.4-12.3); Monocyte (Absolute #) 0.55 x10^3/uL (0.24-0.86); Monocytes % 6.3 % (4.7-12.5); Platelet Count 204 x10^3/uL (182-369); Red Blood Count 4.23 x10^6/uL (3.93-5.22); Red Cell Distribution Width 14.6 % (11.7-14.4); White Blood Count 8.7 x10^3/uL (3.98-10.04)
[2024-10-29 06:50] LABS: ALBUMIN 3.5 g/dL (3.5-5.0); ANION GAP 8.1 MEQ/L (5-15); BILIRUBIN,TOTAL 0.6 mg/dL (0.2-1.3); Calcium 9.1 mg/dL (8.4-10.2); Creatinine 1 1.12 mg/dL (0.52-1.04); EST GLOMERULAR FILTRATION RATE 52.6 ML/MIN; Potassium 3.6 mmol/L (3.5-5.1); Total Protein 5.5 g/dL (6.3-8.2)
[2024-10-29 06:53] VITALS: RESP 20
[2024-10-29 07:41] VITALS: TEMP 97.6
[2024-10-29 08:32] LABS: Slide Review 1 YES
--- NOTE | 2024-10-29 11:55 | PCM.DS ---
Discharge Summary Date of Admission: 10/24/24 22:28 Date of Discharge: 10/29/24 Admitting Physician: RONNY PERDOMO MD Consults: Consults on Case 10/25/24 08:11 Consult Cardiology ROUTINE 10/25/24 14:03 Consult Pulmonology ROUTINE Primary Care Provider: GIO ORTIZ DO Allergies Allergies No Known Drug Allergies Allergy (Verified 10/13/24 17:21) Hospital Summary - Hospital Course Hospital Course: HPI: Ms. RIVAS is a 69 year old female with a past medical history significant for COPD/tobacco use ( 2ppd), hypertension, and CHF admitted with COPD/CHF exacerbation after presenting to ED with complaints of shortness of breath. CXR demonstrated combination of bilateral pneumonia but some likely vascular congestion In ED patient was tachycardic with HR in the 180s and initially placed on BiPap. She was given adenosine without improvement, then started on Cardizem drip. Initial ABG with pH 7.23 improved to 7.34. Initial lab findings remarkable for leukocytosis with WBC at 11.3, elevated troponins, and elevated BNP. Creat is elevated but at baseline for patient. Respiratory panel negative. Patient has been taken off Bipap and weaned off cardizem drip. IP treatment with ceftriaxone/azithromycin, solu-medrol, xopenex, and bumex. CT chest w/o contrast demonstrates bilateral moderate pleural effusion is more on the right side, with underlying related lower lobe atelectasis showing mild interval progression. COPD and interstitial pulmonary changes (stable). Cardiomegaly with a pacemaker in place (stable). Pulmonology consulted as pt has been here 3 times in the last 3 weeks. She does follow Dr. Judd CARRILLO for pulmonology who is currently unavailable for consult as he is out of town until 11/02/24. She admits she continues to smoking 2 ppd. Education provided and advised cessation. Cardiology consulted with recommendations to continue metoprolol and eliquis. Gentle diuresis with lasix po 40mg daily. Echo showing moderate LV dilation and moderate concentric LVH. Serverely reduced LV function. EF at 15-20%. Moderate left atrial enlargement. Mild mitral valve regurgitation. No pericardial effusion. Grade II diastolic dysfunction with elevated left atrial pressure. Cardiology following patient recommends resumption of Eliquis, Entresto and Farxiga. Dyspnea and cough have improved and patient is at baseline oxygen requesting discharge home. Patient advised close follow up with PCP and cardiology. Medication changes as stated below. 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 She is set up with [facility]. Discharge Note New Medications: Metoprolol/eliquis/cefuroxime/prednisone -lasix changed to 40mg daily/ Follow Up: PCP/cardiology Outpatient testing to order: Latest Assessment & Plan (1) COPD exacerbation Current Visit: Yes Status: Acute Assessment & Plan: - 4lNC at baseline-supplemental oxygen with goal spo2 88-92% - Continue azithromycin/ceftriaxone and solumedrol - cefuroxime/prednisone at discharge -Xopenex prn changed to duonebs -Continue home Trelogy add budosenide - Pulmonology consulted but not available and out of town until 11/02 - CXR reviewed demonstrating a loss of the normal sharpness of both costophrenic angles seen could be due to a streak of pleural effusion or minimal pleural thickening, a new finding. A slightly thickened right-sided minor fissure was seen which could be due to pleural thickening or maybe a streak of intrafissural fluid, a new finding. Apical pleural thickening was seen bilaterally, more so on the right side. Prominent kaila seen, more on the right side, either due to mild hilar lymph node enlargement or vascular congestion. - Chest CT w/o contrast reviewed showing bilateral moderate pleural effusion is more on the right side, with underlying related lower lobe atelectasis showing mild interval progression. COPD and interstitial pulmonary changes (stable). Cardiomegaly with a pacemaker in place (stable). Code(s): J44.1 - CHRONIC OBSTRUCTIVE PULMONARY DISEASE W (ACUTE) EXACERBATION (2) CHF exacerbation Current Visit: Yes Status: Acute Assessment & Plan: - Cardiology consulted and documenation reviewed with recommendations to continue metoprolol and eliquis -IV lasix per cardiology- dc bumex - will send home on lasix 40mg po daily - Tele - Continue home Entresto, metoprolol, ASA -Echo reviewed from 10/24/24 -Moderate LV dilation and moderate concentric LVH. Serverely reduced LV function. EF at 15-20%. Moderate left atrial enlargement. Mild mitral valve regurgitation. No pericardial effusion. Grade II diastolic dysfunction with elevated left atrial pressure. -Cardiology following- recommendations based on current echo findings continue E liquis, Entresto and Farxiga -Patient had C in July. No intervention required Code(s): I50.9 - HEART FAILURE, UNSPECIFIED (3) Acute kidney injury Current Visit: Yes Status: Acute Assessment & Plan: - Creat reviewed and at 1.21 and baseline 1.23- trend -resolved Code(s): N17.9 - ACUTE KIDNEY FAILURE, UNSPECIFIED (4) Elevated troponin Current Visit: Yes Status: Acute Assessment & Plan: - Trop reviewed - cardiology consulted with recommendations to continue metoprolol and eliquis. Gentle diuresis with lasix po 40mg daily. Echo pending. - tele Code(s): R79.89 - OTHER SPECIFIED ABNORMAL FINDINGS OF BLOOD CHEMISTRY (5) Obesity (BMI 30-39.9) Current Visit: Yes Status: Acute Assessment & Plan: Advised low sodium diet and exercise as recommended by pulm and cardiology Code(s): E66.9 - OBESITY, UNSPECIFIED (6) Respiratory acidosis Current Visit: Yes Status: Acute Assessment & Plan: - Co2 reviewed - Was placed on bipap in ER- weaned - now 4lNC baseline - See above COPD plan Code(s): E87.29 - OTHER ACIDOSIS (7) Tachycardia Current Visit: Yes Status: Acute Assessment & Plan: - Continue metoprolol - Duonebs changed to xoponex -resolved Code(s): R00.0 - TACHYCARDIA, UNSPECIFIED (8) SVT (supraventricular tachycardia) Current Visit: Yes Status: Resolved Assessment & Plan: - resolved (9) Atrial fibrillation -HR controlled - cardizem drip d/cd -Recs for metoprolol and eliquis -Echo findings as stated above I spent 35 minutes [id number] with the patient on the day of discharge performing discharge exam, discussing hospital stay and discharge instructions with patient and caregivers, preparation of discharge records, prescriptions & referral forms and addressing any questions/concerns the patient had as d ocumented above. - Vitals & Intake/Output Vital Signs: Vital Signs Temperature 97.6 F 10/29/24 07:00 Pulse Rate 81 10/29/24 07:00 Respiratory Rate 20 10/29/24 07:00 Blood Pressure 139/80 10/29/24 07:00 O2 Sat by Pulse Oximetry 98 10/29/24 07:00 Intake & Output: Intake & Output 10/26/24 10/27/24 10/28/24 10/29/24 11:59 11:59 11:59 11:59 Intake Total 170 1055 1366 760 Output Total 2685 814 2281 1800 Balance -420 011 -8890 -3415 Weight 93.9 kg - Lab Result Diagrams: 10/29/24 06:21 10/29/24 06:21 Lab Results-Last 24 Hrs: Lab Results-Last 24 Hours 10/28/24 10/29/24 10/29/24 Range/Units 06:52 06:21 06:21 WBC 8.7 (3.98-10.04) x10^3/uL RBC 4.23 (3.93-5.22) x10^6/uL Hgb 11.6 (11.2-15.7) g/dL Hct 36.3 (34.1-44.9) % MCV 85.8 (79.4-94.8) fL MCH 27.4 (25.6-32.2) pg MCHC 32.0 L (32.2-35.5) g/dL RDW 14.6 H (11.7-14.4) % Plt Count 204 (182-369) x10^3/uL MPV 10.9 (9.4-12.3) fL Gran % 89.0 H (34.0-71.1) % Immature Gran % (Auto) 0.2 (0.001-0.429) % Nucleat RBC Rel Count 0.0 (0.00-0.2) % Eos # (Auto) 0.01 L (0.04-0.36) x10^3/uL Immature Gran # (Auto) 0.02 (0.001-0.031) x10^3u/L Absolute Lymphs (auto) 0.38 L (1.18-3.74) x10^3/uL Absolute Monos (auto) 0.55 (0.24-0.86) x10^3/uL Absolute Nucleated RBC 0.00 (0.00-0.012) x10^3u/L Lymphocytes % 4.4 L (19.3-51.7) % Monocytes % 6.3 (4.7-12.5) % Eosinophils % 0.1 L (0.7-5.8) % Basophils % 0.0 L (0.1-1.2) % Absolute Granulocytes 7.77 H (1.56-6.13) x10^3/uL Basophils # 0 L (0.01-0.08) x10^3/uL Sodium 136 (135-145) mmol/L Potassium 3.6 (3.5-5.1) mmol/L Chloride 92 L (98-107) mmol/L Carbon Dioxide 40 H (22-30) mmol/L Anion Gap 8.1 (5-15) MEQ/L BUN 34 H (7-17) mg/dL Creatinine 1.12 H (0.52-1.04) mg/dL Estimated GFR 52.6 ML/MIN Glucose 221 H (74-106) mg/dL Calcium 9.1 (8.4-10.2) mg/dL Total Bilirubin 0.60 (0.2-1.3) mg/dL AST 28 (14-36) U/L ALT 70 H (0-35) U/L Alkaline Phosphatase 80 (38-126) U/L Serum Total Protein 5.5 L (6.3-8.2) g/dL Albumin 3.5 (3.5-5.0) g/dL Slides for Path Review YES YES Micro Results-Entire Visit: Microbiology 10/24/24 19:07 Blood Culture - Final Blood 10/24/24 22:53 Blood Culture - Final Blood - Procedures and Test Procedures and Tests throughout Hospitalization: Therapy Orders & Screens 10/24/24 19:22 BiPap/CPAP STAT Comment: 10/24/24 22:30 Respiratory Therapy Consult ONCE Comment: Reason For Exam: Diagnosis: sob 10/24/24 22:35 Oxygen Nasal Cannula 3 lpm Comment: Diagnosis: sob Respiratory Therapy Consult ONCE Comment: Reason For Exam: Diagnosis: sob 10/24/24 22:38 Respiratory Therapy Assessment Q24H Comment: Diagnosis: sob 10/25/24 11:58 Respiratory MDI DAILY Comment: TREELGY DAILY Diagnosis: sob 10/25/24 21:00 BiPap/CPAP ROUTINE Comment: per home settings (6cmh2o) Diagnosis: sob Discharge Exam General Appearance: no apparent distress Neurologic Exam: alert, oriented x 3, cooperative Eye Exam: PERRL Ears, Nose, Throat Exam: normal ENT inspection Neck Exam: normal inspection Respiratory Exam: diminished breath sounds, crackles/rales Cardiovascular Exam: regular rate/rhythm, normal heart sounds Gastrointestinal/Abdomen Exam: soft, normal bowel sounds Pelvic Exam: deferred Rectal Exam: deferred Back Exam: normal inspection Extremity Exam: normal inspection Skin Exam: normal color Final Diagnosis/Problem List - Final Discharge Diagnosis/Problem (1) COPD exacerbation Current Visit: Yes Status: Resolved Code(s): J44.1 - CHRONIC OBSTRUCTIVE PULMONARY DISEASE W (ACUTE) EXACERBATION (2) CHF exacerbation Current Visit: Yes Status: Resolved Code(s): I50.9 - HEART FAILURE, UNSPECIFIED (3) Acute kidney injury Current Visit: Yes Status: Resolved Code(s): N17.9 - ACUTE KIDNEY FAILURE, UNSPECIFIED (4) Elevated troponin Current Visit: Yes Status: Acute Code(s): R79.89 - OTHER SPECIFIED ABNORMAL FINDINGS OF BLOOD CHEMISTRY (5) Obesity (BMI 30-39.9) Current Visit: Yes Status: Chronic Code(s): E66.9 - OBESITY, UNSPECIFIED (6) Respiratory acidosis Current Visit: Yes Status: Resolved Code(s): E87.29 - OTHER ACIDOSIS (7) Tachycardia Current Visit: Yes Status: Resolved Code(s): R00.0 - TACHYCARDIA, UNSPECIFIED (8) SVT (supraventricular tachycardia) Current Visit: Yes Status: Resolved Code(s): I47.10 - SUPRAVENTRICULAR TACHY CARDIA, UNSPECIFIED (9) Atrial fibrillation Current Visit: Yes Status: Chronic Code(s): I48.91 - UNSPECIFIED ATRIAL FIBRILLATION - Discharge Discharge Date: 10/29/24 Disposition: Home, Self-Care Condition: Stable Prescriptions: New cefuroxime axetiL [Cefuroxime] 500 mg PO BID 10 Days #20 tablet Prednisone 20 mg [Deltasone 20 mg] 20 mg PO BID 5 Days #10 tablet Apixaban [Eliquis] 5 mg PO BID 30 Days #60 tablet Furosemide 40 mg [Lasix 40 MG] 40 mg PO DAILY 30 Days #30 tablet Metoprolol Succinate 100 mg [Toprol Xl 100 MG] 100 mg PO DAILY 30 Days #30 tablet Continue Albuterol 8 gm Mdi Hfa [Ventolin Hfa MDI] 2 puffs IH Q4H PRN PRN PRN Reason: Shortness Of Breath Atorvastatin Calcium [Lipitor] 80 mg PO HS Tramadol HCl 50 mg [Ultram 50 mg] 50 mg PO Q6HPRN PRN PRN Reason: Moderate To Severe Pain Dapagliflozin Propanediol [Farxiga] 10 mg PO DAILY Amlodipine Besylate [Norvasc] 2.5 mg PO DAILY Ranolazine 500 MG [Ranexa 500 MG] 1,000 mg PO BID Aspirin 81 gm Chew [Baby Aspirin 81 mg Chew] 81 mg PO DAILY #0 Sacubitril/Valsartan [Entresto 97 mg-103 mg Tablet] 1 each PO BID Fluticasone/Umeclidin/Vilanter [Trelegy Ellipta 200-62.5-25] 1 each IH DAILY Famotidine 20 mg PO BID Isosorbide Mononitrate 30 mg [Imdur 30 MG] 30 mg PO DAILY Albuterol/Ipratropium 3ml Neb* [DUONEB 0.5-3 MG/3 ml Neb] 3 ml IH QID Spironolactone 25 mg [Aldactone 25 MG] 25 mg PO DAILY PANTOPRAZOLE 40 mg Tablet [Protonix 40MG Tablet] 40 mg PO QAM Discontinued Furosemide [Lasix] 20 mg PO DAILY Metoprolol Tartrate 50 mg [Lopressor 50 MG] 50 mg PO BID Prednisone 20 mg [Deltasone 20 mg] 20 mg PO BID 5 Days #10 tablet Instructions: Pneumonia in adults - Discharge instructions Follow up with: GIO ORTIZ DO [Primary Care Provider] - 11/16/24 3:00 pm KULWANT ROBERTS [ACTIVE STAFF] - 11/18/24 1:00 pm TITI NICHOLSON PA [NON-STAFF PHY W/O PRIVILEGES] - 11/11/24 3:15 pm Forms: Discharge Instructions
[2024-10-29 12:38] VITALS: BP 122/73; PULSE 83; O2SAT 97
== END 2024-10-29 12:31 | disposition home or self-care (01) ==
LOC: ED 18:36 → MED SURG 22:28
PROVIDERS: ADMIT Internal Medicine Nephrology; ATTEND Internal Medicine Nephrology
DX: J44.1 Chronic obstructive pulmonary disease with (acute) exacerbation (principal); N17.9 Acute kidney failure, unspecified; I13.0 Hypertensive heart and chronic kidney disease with heart failure and stage 1 through stage 4 chronic kidney disease, or unspecified chronic kidney disease; N18.9 Chronic kidney disease, unspecified; I50.9 Heart failure, unspecified; R79.89 Other specified abnormal findings of blood chemistry; E66.9 Obesity, unspecified; E87.29 Other acidosis; R00.0 Tachycardia, unspecified; I48.91 Unspecified atrial fibrillation; F17.200 Nicotine dependence, unspecified, uncomplicated; E78.5 Hyperlipidemia, unspecified; I25.2 Old myocardial infarction; R06.02 Shortness of breath; Z79.899 Other long term (current) drug therapy
CPT/HCPCS: 0241U; 36415; 36600; 71045; 71250; 80053; 81001; 82375; 82803; 83605; 83735; 83880; 84134; 84484; 85025; 85027; 87040; 93005; 93041; 93268; 93306; 94002; 94640; 94660; 94760; 94762; 96365; 96366; 96374; 96375; 96376; 99291; G0378; Q3014; 96360; 99285; J0153; J0456; J0696; J1650; J1940; J2405; J2919; A9270-GY

== ENCOUNTER 2024-11-16 15:47 | Emergency (ER) | payer MEDICARE ==
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
[2024-11-16 16:05] VITALS: TEMP 97.6
[2024-11-16] MEDS ORDERED: DUONEB 0.5-3 MG/3 ml Neb IH ONE (16:15)
[2024-11-16] MEDS: DUONEB 0.5-3 MG/3 ml Neb IH ONE (16:20)
[2024-11-16 16:26] LABS: Absolute Neutrophil Ct (ANC) 7.86 x10^3/uL (1.56-6.13); BASOPHIL % 0.1 % (0.1-1.2); Basophil (Absolute #) 0.01 x10^3/uL (0.01-0.08); Eosinophil (Absolute #) 0 x10^3/uL (0.04-0.36); Hematocrit 36.4 % (34.1-44.9); Hemoglobin 11.3 g/dL (11.2-15.7); IMMATURE GRAN # 0.04 x10^3u/L (0.001-0.031); IMMATURE GRAN % 0.5 % (0.001-0.429); Lymphocytes % 3.6 % (19.3-51.7); Mean Cell Volume 86.5 fL (79.4-94.8); Mean Corpuscular Hemoglobin 26.8 pg (25.6-32.2); Mean Platelet Volume 10.2 fL (9.4-12.3); Monocyte (Absolute #) 0.12 x10^3/uL (0.24-0.86); Monocytes % 1.4 % (4.7-12.5); Neutrophil % 94.4 % (34.0-71.1); Platelet Count 241 x10^3/uL (182-369); Red Blood Count 4.21 x10^6/uL (3.93-5.22); White Blood Count 8.3 x10^3/uL (3.98-10.04)
[2024-11-16] MEDS ORDERED: Sterile H2O 10 ml IJ ONE (16:45)
[2024-11-16] MEDS ORDERED: solu-MEDROL ONE (16:46)
--- NOTE | 2024-11-16 16:46 | XRAY ---
Indication: Short of breath. Chest pain. Comparison: October 24, 2024 Portable chest again demonstrates chronic lung markings and minimal right midlung subsegmental atelectasis/scarring. No focal infiltrate, consolidation, or large effusion. Heart remains borderline enlarged with left pacemaker. Bony thorax intact again with osteopenia and degenerative changes. Impression: Nonacute chest with chronic features.
[2024-11-16] MEDS: solu-MEDROL 125 MG, Sterile H2O 10 ml 2 ML IV ONE (16:48)
[2024-11-16 16:50] LABS: ALBUMIN 4.1 g/dL (3.5-5.0); ANION GAP 10.7 MEQ/L (5-15); BILIRUBIN,TOTAL 0.6 mg/dL (0.2-1.3); Calcium 9.5 mg/dL (8.4-10.2); Creatinine 1 0.97 mg/dL (0.52-1.04); EST GLOMERULAR FILTRATION RATE 62.5 ML/MIN; MAGNESIUM 1.9 mg/dL (1.6-2.3); Potassium 4.6 mmol/L (3.5-5.1); Total Protein 6.7 g/dL (6.3-8.2)
[2024-11-16] MEDS ORDERED: Lasix 40 MG/4 ML ONE (17:14)
[2024-11-16] MEDS: Lasix 40 MG/4 ML IV ONE (17:15)
[2024-11-16 17:50] LABS: INFLUENZA A NEGATIVE (NEGATIVE); INFLUENZA B NEGATIVE (NEGATIVE); RESPIRATORY SYNCTIAL VIRUS NEGATIVE (NEGATIVE); SARS-CoV-2 Xpert Express NEGATIVE (NEGATIVE)
[2024-11-16 18:31] LABS: Slide Review 1 YES
[2024-11-16 20:07] VITALS: BP 139/111; PULSE 93; RESP 19; O2SAT 93
== END 2024-11-16 20:35 | disposition home or self-care (01) ==
LOC: ED 15:47
DX: R06.02 Shortness of breath (principal); R07.9 Chest pain, unspecified; I11.0 Hypertensive heart disease with heart failure; I50.9 Heart failure, unspecified; Z79.899 Other long term (current) drug therapy; Z99.81 Dependence on supplemental oxygen; Z72.0 Tobacco use
CPT/HCPCS: 0241U; 36415; 71045; 80053; 83605; 83735; 83880; 84484; 85025; 87040; 93005; 93041; 94640; 94760; 96374; 96375; 99285; 99284; J1940; J2919; A9270-GY

== ENCOUNTER 2024-11-21 11:35 | Observation (INO) | payer MEDICARE ==
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
[2024-11-21 12:22] LABS: A-aADO2 58; ABG HEMOGLOBIN 12.2; ABG POTASSIUM 4.6 (3.5-5.1); ARTERIAL BLD GAS O2 SATURATION 99.3 % (95-100); ARTERIAL BLOOD GAS BASE EXCESS 5.7 (-2.0-2.0); ARTERIAL BLOOD GAS FIO2 36 %; ARTERIAL BLOOD GAS PCO2 28 mmHg (35-45); ARTERIAL BLOOD GAS PO2 164 mmHg (75-100); ARTERIAL BLOOD GAS pH 7.59 (7.35-7.45); HCO3- 26.9 (22-28); HGB O2 SAT 86.3 g/dF (94-100); Lactic Acid 1.6 (0.4-2.0); Methhemoglobin 0.5 % (1.4-1.5); paO2 pAO1 0.74
[2024-11-21 12:23] LABS: ABG SITE LEFT RADIAL; ALLEN TEST OK? Yes; CARBOXYHEMOGLOBIN 12.6 % THgb (0.0-6.9)
[2024-11-21 12:26] LABS: Absolute Neutrophil Ct (ANC) 5.96 x10^3/uL (1.56-6.13); BASOPHIL % 0.1 % (0.1-1.2); Basophil (Absolute #) 0.01 x10^3/uL (0.01-0.08); Eosinophil (Absolute #) 0 x10^3/uL (0.04-0.36); Hemoglobin 11.6 g/dL (11.2-15.7); IMMATURE GRAN # 0.05 x10^3u/L (0.001-0.031); IMMATURE GRAN % 0.7 % (0.001-0.429); Lymphocyte (Absolute #) 0.55 x10^3/uL (1.18-3.74); Lymphocytes % 8.1 % (19.3-51.7); Mean Cell Volume 86.4 fL (79.4-94.8); Mean Corpuscular Hemoglobin 27.1 pg (25.6-32.2); Mean Corpuscular Hgb Concent. 31.4 g/dL (32.2-35.5); Mean Platelet Volume 10.1 fL (9.4-12.3); Monocyte (Absolute #) 0.24 x10^3/uL (0.24-0.86); Monocytes % 3.5 % (4.7-12.5); Neutrophil % 87.6 % (34.0-71.1); Platelet Count 256 x10^3/uL (182-369); Red Blood Count 4.28 x10^6/uL (3.93-5.22); Red Cell Distribution Width 14.7 % (11.7-14.4); White Blood Count 6.8 x10^3/uL (3.98-10.04)
[2024-11-21 12:42] LABS: ANION GAP 11.2 MEQ/L (5-15); Calcium 9.1 mg/dL (8.4-10.2); Creatinine 1 1.06 mg/dL (0.52-1.04); EST GLOMERULAR FILTRATION RATE 56.2 ML/MIN; Potassium 4.5 mmol/L (3.5-5.1); Total Protein 6.7 g/dL (6.3-8.2)
[2024-11-21 13:07] LABS: Slide Review 1 YES
[2024-11-21 13:08] LABS: INFLUENZA A NEGATIVE (NEGATIVE); INFLUENZA B NEGATIVE (NEGATIVE); RESPIRATORY SYNCTIAL VIRUS NEGATIVE (NEGATIVE); SARS-CoV-2 Xpert Express NEGATIVE (NEGATIVE)
--- NOTE | 2024-11-21 15:21 | XRAY ---
CLINICAL HISTORY: elevated d dimer, sob COMPARISON: CT 10/25/[address] 10/13/2024. TECHNIQUE: Contiguous 3.[address] images of the chest were acquired with administration of intravenous contrast. Coronal and sagittal reconstructions were obtained with PE sequences. One of the following dose reduction techniques were utilized for this exam: Automated exposure control, adjustment of the mA and/or kV according to patient size, and use of iterative reconstruction FINDINGS: Lungs: Still noted bilateral mild to moderate pleural effusion is more on the right side, with underlying related lower lobe atelectasis There are bilateral areas of geographic ground glass opacities, predominantly peripheral reticular opacities, septal thickening, and multiple atelectratic bands in the treated portions of the lungs (stable). Paraseptal and centriacinar emphysematous changes noted in both lungs are more dominant in the upper lobes (stable). No pulmonary masses Mediastinum: Small Calcified mediastinal lymph nodes (Stable) No mediastinal mass or abnormal lymphadenopathy. Normal appearance of the thymus. Hilar Structures: Normal size and configuration, no enlargement. Heart and Great Vessels: Cardiac pacemaker with its leads at the right ventricle. Cardiomeglay with biatrial dilatation is noted No pericardial effusion. Atherosclerotic changes of the aortal with calcifications, athermatous plaques, some of them show irregular surface Pulmonary Arteries: No evidence of gross pulmonary embolism. Dilated main pulmonary trunk measuring 3.6 cm in diameter with congested hilar arteries that may suggest underlying pulmonary hypertension Esophagus: Normal course and caliber. No masses or dilatation. Bones: Diffuse osteopenic texture with spine spondylotic changes and exaggerated thoracic kyphosis No fractures or lytic/sclerotic lesions. Chest Wall: No masses or soft tissue abnormalities. Upper Abdomen: Cholecystectomy clips and spleen calcific foci. Thyroid: Normal size and morphology. No nodules or masses. IMPRESSION: 1. No gross evidence of pulmonary embolism. 2. Dilated main pulmonary trunk measuring 3.6 cm in diameter with congested hilar arteries that may suggest underlying pulmonary hypertension. 3. Bilateral mild to moderate pleural effusions with related lower lobar partial atelectasis (Stable). 4. Changes related to COPD and interstitial pulmonary disease (Stable). Electronically Signed by: Live Euceda MD. (11/21/2024 15:15:58 EST)
[2024-11-21] MEDS ORDERED: DUONEB 0.5-3 MG/3 ml Neb IH ONE (15:44)
[2024-11-21] MEDS: DUONEB 0.5-3 MG/3 ml Neb IH ONE (15:48)
[2024-11-21] MEDS ORDERED: DUONEB 0.5-3 MG/3 ml Neb IH PRN (17:54)
[2024-11-21] MEDS ORDERED: ULTRAM 50 MG PO PRN ×2 (17:56→19:53)
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
[2024-11-21] MEDS ORDERED: ADVAIR 500-50 DISKUS IH SCH (19:00)
[2024-11-21] MEDS: DUONEB 0.5-3 MG/3 ml Neb IH PRN (19:45)
[2024-11-21] MEDS: Advair Hfa 230/21 Mcg COMMON CANISTER IH SCH (19:46)
[2024-11-21] MEDS: Pepcid 20 MG PO SCH (21:15)
[2024-11-21] MEDS: solu-MEDROL IV SCH (21:15)
[2024-11-21] MEDS: ZOCOR 20MG PO SCH (21:16)
[2024-11-21] MEDS: ELIQUIS 2.5 MG TABLET PO SCH (21:16)
[2024-11-21] MEDS: Ranexa 500 MG PO SCH (21:16)
[2024-11-21] MEDS ORDERED: LIPITOR 40MG PO SCH ×2 (22:00)
[2024-11-21] MEDS ORDERED: solu-MEDROL 40 MG, Sterile H2O 10 ml 1 ML IV SCH (22:00)
[2024-11-21] MEDS ORDERED: NON-FORMULARY ITEM (Apixaban [Eliquis] 5 MG Tablet) PO SCH (22:00)
[2024-11-21] MEDS ORDERED: NON-FORMULARY ITEM (Sacubitril/Valsartan [Entresto 97 Mg-103 Mg Tablet] 1 EACH Tablet) PO SCH (22:00)
[2024-11-22 06:43] LABS: ALBUMIN 3.8 g/dL (3.5-5.0); ANION GAP 9.4 MEQ/L (5-15); BILIRUBIN,TOTAL 0.8 mg/dL (0.2-1.3); Calcium 9.2 mg/dL (8.4-10.2); Creatinine 1 1.08 mg/dL (0.52-1.04); EST GLOMERULAR FILTRATION RATE 54.9 ML/MIN; Total Protein 6.5 g/dL (6.3-8.2)
[2024-11-22 08:03] LABS: Hemoglobin 11.5 g/dL (11.2-15.7); Mean Cell Volume 86.4 fL (79.4-94.8); Mean Corpuscular Hemoglobin 26.9 pg (25.6-32.2); Mean Corpuscular Hgb Concent. 31.1 g/dL (32.2-35.5); Mean Platelet Volume 10.6 fL (9.4-12.3); Platelet Count 266 x10^3/uL (182-369); Red Blood Count 4.28 x10^6/uL (3.93-5.22); Red Cell Distribution Width 14.8 % (11.7-14.4); White Blood Count 6.9 x10^3/uL (3.98-10.04)
[2024-11-22] MEDS ORDERED: MEDICATION INTERVENTION MC SCH ×2 (09:15)
--- NOTE | 2024-11-22 09:22 | PCM.NOTE ---
Date and Time: 11/22/24 0915 Subjective Assessment: 11/21/24 69yo f pmhx COPD, CHF, 1/2ppd smoker, HTN presents via EMS for SOB. Pt reports she has been increasingly sob for the past 3d, states she wears 4L O2 nc at baseline, is currently on 4L O2. Pt reports she is also having some chest discomfort and left shoulder blade pain. Pt denies any fevers at home, denies any radiation into the jaw or left arm, and denies any n/v. Pt has been seen in ED multiple times in the past month for similar sx. Trop x2 negative. D-Dimer 2.85- CT negative for PE. CT Shows: Dilated main pulmonary trunk measuring 3.6 cm in diameter with congested hilar arteries that may suggest underlying pulmonary hypertension. Bilateral mild to moderate pleural effusions with related lower lobar partial atelectasis (Stable). Changes related to COPD and interstitial pulmonary disease (Stable). ABG shows Chronic respiratory alkalosis with sendary metabolic alkalosis. Will admit and start Antibiotics, steroids, Duonebs, and Advair. 11/22/24 Pt resting in bed. She continues to have SOB with wheezing throughout lung sounds. She has increased SOB with activity.Has some ANURADHA- encouraged pt to increase water intake as she drinks coffee and tea throughout the day. HR increased continue metoprolol. Continue antibiotics, steroids, Duonebs, and Advair for COPD exacerbation. Consider Pulm consult as she follows Dr. Whaley.. Pt reports since last visit in October her baseline O2 needs to be set at 4LNC- this is what she is on today. Pt reports she missed her Pulmonology appointment with Dr. Whaley this past as she was not feeling well. She has an appointment with nephrology tomorrow and discussed she will need to reschedule. She has an appointment with her lens coater Srinivasa and she wants to attend that appointment if possible. - Review of Systems Constitutional: No Fever, No Chills Eyes: No Symptoms Ears, Nose, & Throat: No Symptoms Respiratory: Cough, Orthopnea, Wheezing, No Short Of Breath Cardiac: Chest Pain (with coughing), No Edema, No Syncope Abdominal/Gastrointestinal: Abdominal Pain (Chronic per pt), Constipation, No Nausea, No Vomiting, No Diarrhea Genitourinary Symptoms: No Dysuria Musculoskeletal: No Back Pain, No Neck Pain Skin: No Rash Neurological: No Dizziness, No Focal Weakness, No Sensory Changes Psychological: No Symptoms Endocrine: No Symptoms Hematologic/Lymphatic: No Symptoms Immunological/Allergic: No Symptoms Objective Exam General Appearance: mild distress, alert, obese Neurologic Exam: alert, oriented x 3, cooperative, normal mood/affect, nml cerebellar function, sensation nml, No motor deficits Skin Exam: normal color, warm, dry Eye Exam: PERRL, EOMI, eyes nml inspection Ears, Nose, Throat Exam: normal ENT inspection, pharynx normal, moist mucous membranes Neck Exam: normal inspection, non-tender, supple, full range of motion Respiratory Exam: wheezing, No respiratory distress Cardiovascular Exam: regular rate/rhythm, normal heart sounds Gastrointestinal/Abdomen Exam: soft, No tenderness, No mass Extremity Exam: normal inspection, normal range of motion Back Exam: normal inspection, normal range of motion, No CVA tenderness, No vertebral tenderness Pelvic Exam: deferred Rectal Exam: deferred Objective Data Vital Signs: Vital Signs - 24 hr Temp Pulse Resp BP BP Pulse Ox 11/22/24 07:23 96.7 F 117 H 22 136/82 97 11/22/24 06:37 114 H 20 97 11/22/24 04:00 97.5 F 103 H 17 132/86 100 11/21/24 23:55 97.9 F 109 H 20 141/99 95 11/21/24 20:16 96 11/21/24 20:00 97 F 117 H 24 166/97 94 L 11/21/24 19:45 123 H 14 96 11/21/24 18:04 97 F 117 H 24 166/97 94 L 11/21/24 17:57 97 F 117 H 24 166/97 94 L 11/21/24 17:30 117 H 27 H 148/99 11/21/24 17:22 98 11/21/24 17:00 116 H 22 151/113 94 L 11/21/24 16:30 115 H 23 161/119 95 11/21/24 16:00 112 H 21 141/90 96 11/21/24 15:52 112 H 18 97 11/21/24 15:30 112 H 21 148/115 99 11/21/24 15:00 117 H 19 156/123 96 11/21/24 14:30 115 H 20 165/130 96 11/21/24 14:00 177/118 97 11/21/24 13:56 179/133 97 11/21/24 13:52 97 11/21/24 13:00 171/124 96 11/21/24 12:30 114 H 24 152/113 94 L 11/21/24 12:00 100 H 22 133/99 94 L 11/21/24 11:43 106 H 27 H 145/93 97 11/21/24 11:38 97.2 F 115 H 100 H 145/93 Pain Assessment - Last Documented Pain Intensity 0 Intake and Output: Intake & Output 11/19/24 11/20/24 11/21/24 11/22/24 11:59 11:59 11:59 11:59 Intake Total 600 Output Total 850 Balance -250 Weight 95.2 kg 92.6 kg Lab Results: Lab Results-Last 24 Hours 11/21/24 11/21/24 11/21/24 Range/Units 12:10 12:10 12:10 WBC (3.98-10.04) x10^3/uL RBC (3.93-5.22) x10^6/uL Hgb (11.2-15.7) g/dL Hct (34.1-44.9) % MCV (79.4-94.8) fL MCH (25.6-32.2) pg MCHC (32.2-35.5) g/dL RDW (11.7-14.4) % Plt Count (182-369) x10^3/uL MPV (9.4-12.3) fL Gran % (34.0-71.1) % Immature Gran % (Auto) (0.001-0.429) % Nucleat RBC Rel Count (0.00-0.2) % Eos # (Auto) (0.04-0.36) x10^3/uL Immature Gran # (Auto) (0.001-0.031) x10^3u/L Absolute Lymphs (auto) (1.18-3.74) x10^3/uL Absolute Monos (auto) (0.24-0.86) x10^3/uL Absolute Nucleated RBC (0.00-0.012) x10^3u/L Lymphocytes % (19.3-51.7) % Monocytes % (4.7-12.5) % Eosinophils % (0.7-5.8) % Basophils % (0.1-1.2) % Absolute Granulocytes (1.56-6.13) x10^3/uL Basophils # (0.01-0.08) x10^3/uL D-Dimer (0.0-0.50) mg/L Puncture Site pCO2 (35-45) mmHg pO2 (75-100) mmHg Base Excess (-2.0-2.0) O2 Saturation (94-100) g/dF ABG pH (7.35-7.45) ABG HCO3 (22-28) ABG O2 Sat (Measured) (95-100) % Hiro Test A-a Gradient a/A Ratio Hemoglobin Carboxyhemoglobin (0.0-6.9) % THgb Methemoglobin (1.4-1.5) % Temperature C POC O2 Flow Rate % Sodium 133 L (135-145) mmol/L Potassium 4.5 (3.5-5.1) mmol/L Chloride 100 (98-107) mmol/L Carbon Dioxide 27 (22-30) mmol/L Anion Gap 11.2 (5-15) MEQ/L BUN 27 H (7-17) mg/dL Creatinine 1.06 H (0.52-1.04) mg/dL Estimated GFR 56.2 ML/MIN Glucose 183 H (74-106) mg/dL Lactic Acid (0.4-2.0) Calcium 9.1 (8.4-10.2) mg/dL Total Bilirubin 1.00 (0.2-1.3) mg/dL AST 46 H (14-36) U/L ALT 50 H (0-35) U/L Alkaline Phosphatase 103 (38-126) U/L Troponin I (0.000-0.033) ng/mL Serum Total Protein 6.7 (6.3-8.2) g/dL Albumin 4.0 (3.5-5.0) g/dL Procalcitonin 0.040 (0.030-0.080) ng/mL Influenza Type A Ag NEGATIVE (NEGATIVE) Influenza Type B Ag NEGATIVE (NEGATIVE) RSV (PCR) NEGATIVE (NEGATIVE) SARS-CoV-2 (PCR) NEGATIVE (NEGATIVE) Slides for Path Review 11/21/24 11/21/24 11/21/24 Range/Units 12:15 12:20 12:25 WBC 6.8 (3.98-10.04) x10^3/uL RBC 4.28 (3.93-5.22) x10^6/uL Hgb 11.6 (11.2-15.7) g/dL Hct 37.0 (34.1-44.9) % MCV 86.4 (79.4-94.8) fL MCH 27.1 (25.6-32.2) pg MCHC 31.4 L (32.2-35.5) g/dL RDW 14.7 H (11.7-14.4) % Plt Count 256 (182-369) x10^3/uL MPV 10.1 (9.4-12.3) fL Gran % 87.6 H (34.0-71.1) % Immature Gran % (Auto) 0.7 H (0.001-0.429) % Nucleat RBC Rel Count 0.0 (0.00-0.2) % Eos # (Auto) 0 L (0.04-0.36) x10^3/uL Immature Gran # (Auto) 0.05 H (0.001-0.031) x10^3u/L Absolute Lymphs (auto) 0.55 L (1.18-3.74) x10^3/uL Absolute Monos (auto) 0.24 (0.24-0.86) x10^3/uL Absolute Nucleated RBC 0.00 (0.00-0.012) x10^3u/L Lymphocytes % 8.1 L (19.3-51.7) % Monocytes % 3.5 L (4.7-12.5) % Eosinophils % 0.0 L (0.7-5.8) % Basophils % 0.1 (0.1-1.2) % Absolute Granulocytes 5.96 (1.56-6.13) x10^3/uL Basophils # 0.01 (0.01-0.08) x10^3/uL D-Dimer (0.0-0.50) mg/L Puncture Site LEFT RADIAL pCO2 28 L (35-45) mmHg pO2 164 H* (75-100) mmHg Base Excess 5.7 H (-2.0-2.0) O2 Saturation 86.3 L (94-100) g/dF ABG pH 7.59 H* (7.35-7.45) ABG HCO3 26.9 (22-28) ABG O2 Sat (Measured) 99.3 (95-100) % Hiro Test Yes A-a Gradient 58 a/A Ratio 0.74 Hemoglobin 12.2 Carboxyhemoglobin 12.6 H* (0.0-6.9) % THgb Methemoglobin 0.5 L (1.4-1.5) % Temperature 37.0 C POC O2 Flow Rate 36 % Sodium (135-145) mmol/L Potassium 4.6 (3.5-5.1) mmol/L Chloride (98-107) mmol/L Carbon Dioxide (22-30) mmol/L Anion Gap (5-15) MEQ/L BUN (7-17) mg/dL Creatinine (0.52-1.04) mg/dL Estimated GFR ML/MIN Glucose (74-106) mg/dL Lactic Acid 1.6 (0.4-2.0) Calcium (8.4-10.2) mg/dL Total Bilirubin (0.2-1.3) mg/dL AST (14-36) U/L ALT (0-35) U/L Alkaline Phosphatase (38-126) U/L Troponin I 0.024 (0.000-0.033) ng/mL Serum Total Protein (6.3-8.2) g/dL Albumin (3.5-5.0) g/dL Procalcitonin (0.030-0.080) ng/mL Influenza Type A Ag (NEGATIVE) Influenza Type B Ag (NEGATIVE) RSV (PCR) (NEGATIVE) SARS-CoV-2 (PCR) (NEGATIVE) Slides for Path Review YES 11/21/24 11/21/24 11/21/24 Range/Units 12:33 16:25 20:15 WBC (3.98-10.04) x10^3/uL RBC (3.93-5.22) x10^6/uL Hgb (11.2-15.7) g/dL Hct (34.1-44.9) % MCV (79.4-94.8) fL MCH (25.6-32.2) pg MCHC (32.2-35.5) g/dL RDW (11.7-14.4) % Plt Count (182-369) x10^3/uL MPV (9.4-12.3) fL Gran % (34.0-71.1) % Immature Gran % (Auto) (0.001-0.429) % Nucleat RBC Rel Count (0.00-0.2) % Eos # (Auto) (0.04-0.36) x10^3/uL Immature Gran # (Auto) (0.001-0.031) x10^3u/L Absolute Lymphs (auto) (1.18-3.74) x10^3/uL Absolute Monos (auto) (0.24-0.86) x10^3/uL Absolute Nucleated RBC (0.00-0.012) x10^3u/L Lymphocytes % (19.3-51.7) % Monocytes % (4.7-12.5) % Eosinophils % (0.7-5.8) % Basophils % (0.1-1.2) % Absolute Granulocytes (1.56-6.13) x10^3/uL Basophils # (0.01-0.08) x10^3/uL D-Dimer 2.85 H* (0.0-0.50) mg/L Puncture Site pCO2 (35-45) mmHg pO2 (75-100) mmHg Base Excess (-2.0-2.0) O2 Saturation (94-100) g/dF ABG pH (7.35-7.45) ABG HCO3 (22-28) ABG O2 Sat (Measured) (95-100) % Hiro Test A-a Gradient a/A Ratio Hemoglobin Carboxyhemoglobin (0.0-6.9) % THgb Methemoglobin (1.4-1.5) % Temperature C POC O2 Flow Rate % Sodium (135-145) mmol/L Potassium (3.5-5.1) mmol/L Chloride (98-107) mmol/L Carbon Dioxide (22-30) mmol/L Anion Gap (5-15) MEQ/L BUN (7-17) mg/dL Creatinine (0.52-1.04) mg/dL Estimated GFR ML/MIN Glucose (74-106) mg/dL Lactic Acid (0.4-2.0) Calcium (8.4-10.2) mg/dL Total Bilirubin (0.2-1.3) mg/dL AST (14-36) U/L ALT (0-35) U/L Alkaline Phosphatase (38-126) U/L Troponin I 0.024 0.020 (0.000-0.033) ng/mL Serum Total Protein (6.3-8.2) g/dL Albumin (3.5-5.0) g/dL Procalcitonin (0.030-0.080) ng/mL Influenza Type A Ag (NEGATIVE) Influenza Type B Ag (NEGATIVE) RSV (PCR) (NEGATIVE) SARS-CoV-2 (PCR) (NEGATIVE) Slides for Path Review 11/22/24 11/22/24 Range/Units 04:00 04:00 WBC 6.9 (3.98-10.04) x10^3/uL RBC 4.28 (3.93-5.22) x10^6/uL Hgb 11.5 (11.2-15.7) g/dL Hct 37.0 (34.1-44.9) % MCV 86.4 (79.4-94.8) fL MCH 26.9 (25.6-32.2) pg MCHC 31.1 L (32.2-35.5) g/dL RDW 14.8 H (11.7-14.4) % Plt Count 266 (182-369) x10^3/uL MPV 10.6 (9.4-12.3) fL Gran % (34.0-71.1) % Immature Gran % (Auto) (0.001-0.429) % Nucleat RBC Rel Count (0.00-0.2) % Eos # (Auto) (0.04-0.36) x10^3/uL Immature Gran # (Auto) (0.001-0.031) x10^3u/L Absolute Lymphs (auto) (1.18-3.74) x10^3/uL Absolute Monos (auto) (0.24-0.86) x10^3/uL Absolute Nucleated RBC (0.00-0.012) x10^3u/L Lymphocytes % (19.3-51.7) % Monocytes % (4.7-12.5) % Eosinophils % (0.7-5.8) % Basophils % (0.1-1.2) % Absolute Granulocytes (1.56-6.13) x10^3/uL Basophils # (0.01-0.08) x10^3/uL D-Dimer (0.0-0.50) mg/L Puncture Site pCO2 (35-45) mmHg pO2 (75-100) mmHg Base Excess (-2.0-2.0) O2 Saturation (94-100) g/dF ABG pH (7.35-7.45) ABG HCO3 (22-28) ABG O2 Sat (Measured) (95-100) % Hiro Test A-a Gradient a/A Ratio Hemoglobin Carboxyhemoglobin (0.0-6.9) % THgb Methemoglobin (1.4-1.5) % Temperature C POC O2 Flow Rate % Sodium 134 L (135-145) mmol/L Potassium 5.0 (3.5-5.1) mmol/L Chloride 101 (98-107) mmol/L Carbon Dioxide 29 (22-30) mmol/L Anion Gap 9.4 (5-15) MEQ/L BUN 26 H (7-17) mg/dL Creatinine 1.08 H (0.52-1.04) mg/dL Estimated GFR 54.9 ML/MIN Glucose 182 H (74-106) mg/dL Lactic Acid (0.4-2.0) Calcium 9.2 (8.4-10.2) mg/dL Total Bilirubin 0.80 (0.2-1.3) mg/dL AST 30 (14-36) U/L ALT 42 H (0-35) U/L Alkaline Phosphatase 89 (38-126) U/L Troponin I (0.000-0.033) ng/mL Serum Total Protein 6.5 (6.3-8.2) g/dL Albumin 3.8 (3.5-5.0) g/dL Procalcitonin (0.030-0.080) ng/mL Influenza Type A Ag (NEGATIVE) Influenza Type B Ag (NEGATIVE) RSV (PCR) (NEGATIVE) SARS-CoV-2 (PCR) (NEGATIVE) Slides for Path Review Radiology Exams: Radiology Procedures Category Date Time Status CHEST WITH CONTRAST [CT] Stat Exams 11/21/24 13:05 Completed Assessment/Plan (1) Acute exacerbation of chronic obstructive pulmonary disease (COPD) Current Visit: Yes Status: Acute Assessment & Plan: -CBC, CMP reviewed - CT reviewed - Antibiotics, steroids, Duonebs, and Advair - ON 4LNC- Baseline - Tele - BC x2 ordered in ER - consider Pulm consult- Follows Dr. Macedo - Sputum sample Code(s): J44.1 - CHRONIC OBSTRUCTIVE PULMONARY DISEASE W (ACUTE) EXACERBATION (2) Elevated d-dimer Current Visit: Yes Status: Acute Assessment & Plan: -CT negative for PE Code(s): R79.89 - OTHER SPECIFIED ABNORMAL FINDINGS OF BLOOD CHEMISTRY (3) Pulmonary HTN Current Visit: Yes Status: Acute Assessment & Plan: - As seen on CT - Continue home meds Code(s): I27.20 - PULMONARY HYPERTENSION, UNSPECIFIED (4) Tachycardia Current Visit: No Status: Acute Assessment & Plan: -2:2 COPD exacerbation - trend HR - Continue metoprolol - Tele Code(s): R00.0 - TACHYCARDIA, UNSPECIFIED (5) Smoker Current Visit: Yes Status: Chronic Assessment & Plan: -advised cessation -nicotine patch Code(s): F17.200 - NICOTINE DEPENDENCE, UNSPECIFIED, UNCOMPLICATED (6) Obesity (BMI 30.0-34.9) Current Visit: Yes Status: Chronic Assessment & Plan: - advised diet and exercise control Code(s): E66.811 - OBESITY, CLASS 1 (7) CHF (congestive heart failure) Current Visit: No Status: Chronic Qualifiers: Assessment & Plan: -Continue home meds Code(s): I50.9 - HEART FAILURE, UNSPECIFIED (8) CKD (chronic kidney disease) Current Visit: Yes Status: Chronic Assessment & Plan: -At baseline renal function -Trend labs. 11/22 - CReat 1.08- BL 0.97 - encourage water intake Code(s): N18.9 - CHRONIC KIDNEY DISEASE, UNSPECIFIED (9) HTN (hypertension) Current Visit: No Status: Chronic Assessment & Plan: -BP stable Continue home meds VTE: Eliquis PPI: Protonix Next of KIN: Child- Blaine Pedraza D/C plan 1-2 days Code status: Full Code(s): I10 - ESSENTIAL (PRIMARY) HYPERTENSION
[2024-11-22] MEDS: ECOTRIN 81 MG PO SCH (09:38)
[2024-11-22] MEDS: Ranexa 500 MG PO SCH (09:39)
[2024-11-22] MEDS: Toprol Xl 100 MG PO SCH (09:40)
[2024-11-22] MEDS: Protonix 40MG Tablet PO SCH ×2 (09:41→10:02)
[2024-11-22] MEDS: ENTRESTO 49 MG-51 MG TABLET PO SCH (09:41)
[2024-11-22] MEDS: Lasix 40 MG PO SCH (09:41)
[2024-11-22] MEDS: Imdur 30 MG PO SCH (09:42)
[2024-11-22] MEDS: NORVASC 5 MG PO SCH (09:42)
[2024-11-22] MEDS: ROCEPHIN 1 GM / 100 ML NaCl 1 GM/100 ML IVPB IV SCH (09:43)
[2024-11-22] MEDS ORDERED: Sterile H2O 10 ml IJ ONE (09:47)
[2024-11-22] MEDS ORDERED: BABY ASPIRIN 81 MG CHEW PO SCH (10:00)
[2024-11-22] MEDS ORDERED: ROCEPHIN 1 GM / 100 ML NaCl 1 GM/100 ML IVPB IV SCH (10:00)
[2024-11-22] MEDS ORDERED: NON-FORMULARY ITEM (Amlodipine Besylate [Norvasc] 2.5 MG Tablet) PO SCH (10:00)
[2024-11-22] MEDS ORDERED: Spiriva 18 Mcg/Cap Inhaler IH SCH (10:00)
[2024-11-22] MEDS ORDERED: NON-FORMULARY ITEM (Dapagliflozin Propanediol [Farxiga] 10 MG Tablet) PO SCH (10:00)
[2024-11-22] MEDS ORDERED: Toprol Xl 100 MG PO SCH (10:00)
[2024-11-22] MEDS ORDERED: NON-FORMULARY ITEM (Fluticasone/Umeclidin/Vilanter [Trelegy Ellipta 200-62.5-25] 1 EACH Bl IH SCH (10:00)
[2024-11-22] MEDS: Aldactone 25 MG PO SCH (10:02)
[2024-11-22] MEDS: Pepcid 20 MG PO SCH (10:08)
[2024-11-22] MEDS: SENOKOT 8.6 MG PO SCH (10:43)
[2024-11-22] MEDS: DUONEB 0.5-3 MG/3 ml Neb IH SCH (11:27)
[2024-11-22] MEDS: OCEAN Nasal Spray NS PRN (20:08)
[2024-11-22] MEDS ORDERED: solu-MEDROL ONE (21:33)
[2024-11-22] MEDS: solu-MEDROL 40 MG, Sterile H2O 10 ml 1 ML IV SCH (21:41)
[2024-11-22] MEDS: ZOCOR 20MG PO SCH (21:42)
[2024-11-23 05:07] LABS: Hematocrit 35.6 % (34.1-44.9); Hemoglobin 11.1 g/dL (11.2-15.7); Mean Cell Volume 85.8 fL (79.4-94.8); Mean Corpuscular Hemoglobin 26.7 pg (25.6-32.2); Mean Corpuscular Hgb Concent. 31.2 g/dL (32.2-35.5); Mean Platelet Volume 10.7 fL (9.4-12.3); Platelet Count 282 x10^3/uL (182-369); Red Blood Count 4.15 x10^6/uL (3.93-5.22); White Blood Count 8.6 x10^3/uL (3.98-10.04)
--- NOTE | 2024-11-23 05:12 | PCM.NOTE ---
Date and Time: 11/23/24 0502 Subjective Assessment: Ms. RIVAS is a 69 year old female with a past medical history significant for COPD/tobacco use ( 2ppd), hypertension, and CHF admitted 11/21/24 with complaints of a three day history of dyspnea and a productive cough. EKG with Sinus tach HR at 115on-specific ST Changes, Other (some LVH, not suggestive of acute ischemia, no ST elevations or depressions). Chest CT demonstrates dilated main pulmonary trunk measuring 3.6 cm in diameter with congested hilar arteries that may suggest underlying pulmonary hypertension.Bilateral mild to moderate pleural effusions with related lower lobar partial atelectasis. Changes related to COPD and interstitial pulmonary disease. Negative for PE. Of note patient has had several admissions for similar symptoms. She also reported chest discomfort and left shoulder blade pain. Initial lab findings remarkable for elevated Ddimer (negative PE on CT chest), ABG showing Chronic respiratory alkalosis, hyponatremia, and mild ANURADHA and elevated LFTs.Troponin I WNL x 3. She has had some elevated HR during admission. IP treatment with steroids, bronchodilators, and antibiotics. Patient has upcoming appt with cardiology Saturday. Objective Data Vital Signs: Vital Signs - 24 hr Temp Pulse Resp BP Pulse Ox 11/23/24 03:00 97.2 F 118 H 20 128/80 94 L 11/22/24 23:00 97.3 F 105 H 18 130/77 93 L 11/22/24 19:49 100 H 18 97 11/22/24 19:25 97.2 F 110 H 20 121/77 95 11/22/24 16:00 97.7 F 112 H 20 133/92 97 11/22/24 15:29 112 H 20 97 11/22/24 11:40 97.7 F 113 H 22 133/92 97 11/22/24 11:27 105 H 18 97 11/22/24 07:23 96.7 F 117 H 22 136/82 97 11/22/24 06:37 114 H 20 97 Pain Assessment - Last Documented Pain Intensity 0 Intake and Output: Intake & Output 11/20/24 11/21/24 11/22/24 11/23/24 11:59 11:59 11:59 11:59 Intake Total 600 720 Output Total 850 550 Balance -250 170 Weight 95.2 kg 92.6 kg Lab Results: Lab Results-Last 24 Hours 11/22/24 11/22/24 Range/Units 04:00 04:00 WBC 6.9 (3.98-10.04) x10^3/uL RBC 4.28 (3.93-5.22) x10^6/uL Hgb 11.5 (11.2-15.7) g/dL Hct 37.0 (34.1-44.9) % MCV 86.4 (79.4-94.8) fL MCH 26.9 (25.6-32.2) pg MCHC 31.1 L (32.2-35.5) g/dL RDW 14.8 H (11.7-14.4) % Plt Count 266 (182-369) x10^3/uL MPV 10.6 (9.4-12.3) fL Sodium 134 L (135-145) mmol/L Potassium 5.0 (3.5-5.1) mmol/L Chloride 101 (98-107) mmol/L Carbon Dioxide 29 (22-30) mmol/L Anion Gap 9.4 (5-15) MEQ/L BUN 26 H (7-17) mg/dL Creatinine 1.08 H (0.52-1.04) mg/dL Estimated GFR 54.9 ML/MIN Glucose 182 H (74-106) mg/dL Calcium 9.2 (8.4-10.2) mg/dL Total Bilirubin 0.80 (0.2-1.3) mg/dL AST 30 (14-36) U/L ALT 42 H (0-35) U/L Alkaline Phosphatase 89 (38-126) U/L Serum Total Protein 6.5 (6.3-8.2) g/dL Albumin 3.8 (3.5-5.0) g/dL Radiology Exams: Radiology Procedures Category Date Time Status CHEST WITH CONTRAST [CT] Stat Exams 11/21/24 13:05 Completed Assessment/Plan (1) Acute exacerbation of chronic obstructive pulmonary disease (COPD) Current Visit: Yes Status: Acute Assessment & Plan: -CBC, CMP reviewed -WBC WNL at 8.6 - CT reviewed demonstrates dilated main pulmonary trunk measuring 3.6 cm in diameter with congested hilar arteries that may suggest underlying pulmonary hypertension.Bilateral mild to moderate pleural effusions with related lower lobar partial atelectasis. Changes related to COPD and interstitial pulmonary disease. Negative for PE. - Continue Ceftriaxone, solumedrol, Duonebs, and Advair - ON 4LNC- Baseline - Tele - BC [id number] - consider Pulm consult- Follows Dr. Macedo - Sputum culture pending Code(s): J44.1 - CHRONIC OBSTRUCTIVE PULMONARY DISEASE W (ACUTE) EXACERBATION (2) Elevated d-dimer Current Visit: Yes Status: Acute Assessment & Plan: -CT negative for PE Code(s): R79.89 - OTHER SPECIFIED ABNORMAL FINDINGS OF BLOOD CHEMISTRY (3) Tachycardia Current Visit: Yes Status: Acute Assessment & Plan: -2:2 COPD exacerbation - trend HR -h/o AFIB on metoprolol/ eliquis - continue - Tele Code(s): R00.0 - TACHYCARDIA, UNSPECIFIED (4) Afib Current Visit: Yes Status: Acute Assessment & Plan: -Continue Eliquis and metoprolol Code(s): I48.91 - UNSPECIFIED ATRIAL FIBRILLATION (5) CHF (congestive heart failure) Current Visit: Yes Status: Acute Assessment & Plan: -Continue Entresto, farxiga, spironolactone, metoprolol -Echo reviewed rom 10/24/24 -Moderate LV dilation and moderate concentric LVH. Serverely reduced LV function. EF at 15-20%. Moderate left atrial enlargement. Mild mitral valve regurgitation. No pericardial effusion. Grade II diastolic dysfunction with elevated left atrial pressure. -Patient had C in July. No intervention required Code(s): I50.9 - HEART FAILURE, UNSPECIFIED (6) Pulmonary HTN Current Visit: Yes Status: Acute Assessment & Plan: - As seen on CT - Continue home meds Code(s): I27.20 - PULMONARY HYPERTENSION, UNSPECIFIED (7) Obesity (BMI 30.0-34.9) Current Visit: Yes Status: Chronic Assessment & Plan: - advised diet and exercise control Code(s): E66.811 - OBESITY, CLASS 1 (8) Smoker Current Visit: Yes Status: Chronic Assessment & Plan: -advised cessation -nicotine patch Code(s): F17.200 - NICOTINE DEPENDENCE, UNSPECIFIED, UNCOMPLICATED (9) CRF (chronic renal failure) Current Visit: No Status: Chronic Assessment & Plan: -Baseline around 1.23- trend -Avoid nephrotoxic agents -monitor renal/lytes daily (10) HTN (hypertension) Current Visit: No Status: Chronic Assessment & Plan: -BP stable Continue home meds VTE: Eliquis PPI: Protonix Next of KIN: Child- Blaine Rivas D/C plan 1-2 days Code status: Full Code(s): I10 - ESSENTIAL (PRIMARY) HYPERTENSION
[2024-11-23 05:50] LABS: ALBUMIN 3.7 g/dL (3.5-5.0); ANION GAP 9.6 MEQ/L (5-15); BILIRUBIN,TOTAL 0.5 mg/dL (0.2-1.3); Calcium 8.7 mg/dL (8.4-10.2); Creatinine 1 1.18 mg/dL (0.52-1.04); EST GLOMERULAR FILTRATION RATE 49.4 ML/MIN; Potassium 4.5 mmol/L (3.5-5.1); Total Protein 6.3 g/dL (6.3-8.2)
[2024-11-23] MEDS ORDERED: OCEAN Nasal Spray NS PRN (07:08)
[2024-11-23 11:02] VITALS: O2SAT 97
--- NOTE | 2024-11-23 11:48 | PCM.DS ---
Discharge Summary Date of Admission: 11/21/24 17:50 Date of Discharge: 11/23/24 Admitting Physician: JOHN VELASQUEZ MD Primary Care Provider: GIO ORTIZ DO Allergies Allergies No Known Drug Allergies Allergy (Verified 11/16/24 15:51) Hospital Summary - Hospital Course Hospital Course: Ms. RIVAS is a 69 year old female with a past medical history significant for COPD/tobacco use ( 2ppd), hypertension, and CHF admitted 11/21/24 with compla ints of a three day history of dyspnea and a productive cough. EKG with Sinus tach HR at 115on-specific ST Changes, Other (some LVH, not suggestive of acute ischemia, no ST elevations or depressions). Chest CT demonstrates dilated main pulmonary trunk measuring 3.6 cm in diameter with congested hilar arteries that may suggest underlying pulmonary hypertension.Bilateral mild to moderate pleural effusions with related lower lobar partial atelectasis. Changes related to COPD and interstitial pulmonary disease. Negative for PE. Of note patient has had several admissions for similar symptoms. She also reported chest discomfort and left shoulder blade pain. Initial lab findings remarkable for elevated Ddimer (negative PE on CT chest), ABG showing Chronic respiratory alkalosis, hyponatremia, and mild ANURADHA and elevated LFTs.Troponin I WNL x 3. She has had some elevated HR during admission. IP treatment with steroids, bronchodilators, and antibiotics. Patient has upcoming appt with cardiology Saturday. Dyspnea and cough have improved. Patient at baseline oxygen of 4L. Advised patient to qu it smoking. She states she has not smoked in 2weeks. Advised follow up with pulm and pcp. Blood glucose levels elevated secondary to steroids. Patient refuses treatment. Patient to continue nebulizer treatments at home with abx/steroid. Discharge Note New Diagnosis: COPD exacerbation New Medications: cefuroxime/prednisone Follow Up: PCP/Cards/Pulmonology Latest Assessment & Plan (1) Acute exacerbation of chronic obstructive pulmonary disease (COPD) Current Visit: Yes Status: Acute Assessment & Plan: -CBC, CMP reviewed -WBC WNL at 8.6 - CT reviewed demonstrates dilated main pulmonary trunk measuring 3.6 cm in diameter with congested hilar arteries that may suggest underlying pulmonary hypertension.Bilateral mild to moderate pleural effusions with related lower lob ar partial atelectasis. Changes related to COPD and interstitial pulmonary disease. Negative for PE. - Continue Ceftriaxone, solumedrol, Duonebs, and Advair - ON 4LNC- Baseline - Tele - BC [id number] - consider Pulm consult- Follows Dr. Macedo - Sputum culture pending Code(s): J44.1 - CHRONIC OBSTRUCTIVE PULMONARY DISEASE W (ACUTE) EXACERBATION (2) Elevated d-dimer Current Visit: Yes Status: Acute Assessment & Plan: -CT negative for PE Code(s): R79.89 - OTHER SPECIFIED ABNORMAL FINDINGS OF BLOOD CHEMISTRY (3) Tachycardia Current Visit: Yes Status: Acute Assessment & Plan: -2:2 COPD exacerbation - trend HR -h/o AFIB on metoprolol/ eliquis - continue - Tele Code(s): R00.0 - TACHYCARDIA, UNSPECIFIED (4) Afib Current Visit: Yes Status: Acute Assessment & Plan: -Continue Eliquis and metoprolol Code(s): I48.91 - UNSPECIFIED ATRIAL FIBRILLATION (5) CHF (congestive heart failure) Current Visit: Yes Status: Acute Assessment & Plan: -Continue Entresto, farxiga, spironolactone, metoprolol -Echo reviewed rom 10/24/24 -Moderate LV dilation and moderate concentric LVH. Serverely reduced LV fun ction. EF at 15-20%. Moderate left atrial enlargement. Mild mitral valve regurgitation. No pericardial effusion. Grade II diastolic dysfunction with elevated left atrial pressure. -Patient had C in July. No intervention required Code(s): I50.9 - HEART FAILURE, UNSPECIFIED (6) Pulmonary HTN Current Visit: Yes Status: Acute Assessment & Plan: - As seen on CT - Continue home meds Code(s): I27.20 - PULMONARY HYPERTENSION, UNSPECIFIED (7) Obesity (BMI 30.0-34.9) Current Visit: Yes Status: Chronic Assessment & Plan: - advised diet and exercise control Code(s): E66.811 - OBESITY, CLASS 1 (8) Smoker Current Visit: Yes Status: Chronic Assessment & Plan: -advised cessation -nicotine patch Code(s): F17.200 - NICOTINE DEPENDENCE, UNSPECIFIED, UNCOMPLICATED (9) CRF (chronic renal failure) Current Visit: No Status: Chronic Assessment & Plan: -Baseline around 1.23- trend -Avoid nephrotoxic agents -monitor renal/lytes daily (10) HTN (hypertension) Current Visit: No Status: Chronic Assessment & Plan: -BP stable Continue home meds I spent 35 minutes [id number] with the patient on the day of discharge performing discharge exam, discussing hospital stay and discharge instructions with patient and caregivers, preparation of discharge records, prescriptions & referral forms and addressing any questions/concerns the patient had as documented above. - Vitals & Intake/Output Vital Signs: Vital Signs Temperature 97.3 F 11/23/24 07:39 Pulse Rate 107 H 11/23/24 11:00 Respiratory Rate 20 11/23/24 11:00 Blood Pressure 167/92 11/23/24 07:39 O2 Sat by Pulse Oximetry 97 11/23/24 11:00 Intake & Output: Intake & Output 11/20/24 11/21/24 11/22/24 11/23/24 11:59 11:59 11:59 11:59 Intake Total 600 840 Output Total 850 550 Balance -250 290 Weight 95.2 kg 92.6 kg - Lab Result Diagrams: 11/23/24 05:00 11/23/24 05:00 Lab Results-Last 24 Hrs: Lab Results-Last 24 Hours 11/23/24 11/23/24 11/23/24 Range/Units 05:00 05:00 07:21 WBC 8.6 (3.98-10.04) x10^3/uL RBC 4.15 (3.93-5.22) x10^6/uL Hgb 11.1 L (11.2-15.7) g/dL Hct 35.6 (34.1-44.9) % MCV 85.8 (79.4-94.8) fL MCH 26.7 (25.6-32.2) pg MCHC 31.2 L (32.2-35.5) g/dL RDW 15.0 H (11.7-14.4) % Plt Count 282 (182-369) x10^3/uL MPV 10.7 (9.4-12.3) fL Sodium 133 L (135-145) mmol/L Potassium 4.5 (3.5-5.1) mmol/L Chloride 96 L (98-107) mmol/L Carbon Dioxide 32 H (22-30) mmol/L Anion Gap 9.6 (5-15) MEQ/L BUN 35 H (7-17) mg/dL Creatinine 1.18 H (0.52-1.04) mg/dL Estimated GFR 49.4 ML/MIN Glucose 313 H (74-106) mg/dL POC Glucometer 261 H (74 to 106) mg/dL Calcium 8.7 (8.4-10.2) mg/dL Total Bilirubin 0.50 (0.2-1.3) mg/dL AST 28 (14-36) U/L ALT 43 H (0-35) U/L Alkaline Phosphatase 88 (38-126) U/L Serum Total Protein 6.3 (6.3-8.2) g/dL Albumin 3.7 (3.5-5.0) g/dL Micro Results-Entire Visit: Microbiology 11/21/24 12:15 Blood Culture - Preliminary Blood 11/21/24 12:10 Blood Culture - Preliminary Blood - Radiology Exams Ordered Rad Exams-Entire Visit: Radiology Procedures Category Date Time Status CHEST WITH CONTRAST [CT] Stat Exams 11/21/24 13:05 Completed - Procedures and Test Procedures and Tests throughout Hospitalization: Therapy Orders & Screens 11/21/24 15:52 Respiratory Therapy Assessment DAILY Comment: 11/21/24 18:58 Oxygen Nasal Cannula 4 lpm Comment: Diagnosis: acute on chronic COPD Respiratory Therapy Assessment DAILY Comment: Diagnosis: acute on chronic COPD 11/21/24 19:00 Respiratory MDI BID Comment: Diagnosis: acute on chronic COPD Discharge Exam General Appearance: no apparent distress Neurologic Exam: alert, oriented x 3, cooperative Eye Exam: PERRL Ears, Nose, Throat Exam: normal ENT inspection Neck Exam: normal inspection Respiratory Exam: diminished breath sounds, wheezing Cardiovascular Exam: regular rate/rhythm, normal heart sounds Gastrointestinal/Abdomen Exam: soft, normal bowel sounds Pelvic Exam: deferred Rectal Exam: deferred Back Exam: normal inspection Extremity Exam: normal inspection Skin Exam: normal color Final Diagnosis/Problem List - Final Discharge Diagnosis/Problem (1) Acute exacerbation of chronic obstructive pulmonary disease (COPD) Current Visit: Yes Status: Acute Code(s): J44.1 - CHRONIC OBSTRUCTIVE PULMONARY DISEASE W (ACUTE) EXACERBATION (2) Elevated d-dimer Current Visit: Yes Status: Acute Code(s): R79.89 - OTHER SPECIFIED ABNORMAL FINDINGS OF BLOOD CHEMISTRY (3) Tachycardia Current Visit: Yes Status: Acute Code(s): R00.0 - TACHYCARDIA, UNSPECIFIED (4) Afib Current Visit: Yes Status: Acute Code(s): I48.91 - UNSPECIFIED ATRIAL FIBRILLATION (5) CHF (congestive heart failure) Current Visit: Yes Status: Acute Code(s): I50.9 - HEART FAILURE, UNSPECIFIED (6) Pulmonary HTN Current Visit: Yes Status: Acute Code(s): I27.20 - PULMONARY HYPERTENSION, UNSPECIFIED (7) Obesity (BMI 30.0-34.9) Current Visit: Yes Status: Chronic Code(s): E66.811 - OBESITY, CLASS 1 (8) Smoker Current Visit: Yes Status: Chronic Code(s): F17.200 - NICOTINE DEPENDENCE, UNSPECIFIED, UNCOMPLICATED (9) CRF (chronic renal failure) Current Visit: No Status: Chronic (10) HTN (hypertension) Current Visit: No Status: Chronic Code(s): I10 - ESSENTIAL (PRIMARY) HYPERTENSION - Discharge Discharge Date: 11/23/24 Disposition: Home, Self-Care Condition: Stable Prescriptions: New cefuroxime axetiL [Cefuroxime] 500 mg PO BID 7 Days #14 tab Continue Albuterol 8 gm Mdi Hfa [Ventolin Hfa MDI] 2 puffs IH Q4H PRN PRN PRN Reason: Shortness Of Breath Atorvastatin Calcium [Lipitor] 80 mg PO HS Tramadol HCl 50 mg [Ultram 50 mg] 50 mg PO Q6HPRN PRN PRN Reason: Moderate To Severe Pain Dapagliflozin Propanediol [Farxiga] 10 mg PO DAILY Amlodipine Besylate [Norvasc] 2.5 mg PO DAILY Ranolazine 500 MG [Ranexa 500 MG] 1,000 mg PO BID Aspirin 81 gm Chew [Baby Aspirin 81 mg Chew] 81 mg PO DAILY #0 Sacubitril/Valsartan [Entresto 97 mg-103 mg Tablet] 1 each PO BID Fluticasone/Umeclidin/Vilanter [Trelegy Ellipta 200-62.5-25] 1 each IH DAILY Famotidine 20 mg PO BID Isosorbide Mononitrate 30 mg [Imdur 30 MG] 30 mg PO DAILY Albuterol/Ipratropium 3ml Neb* [DUONEB 0.5-3 MG/3 ml Neb] 3 ml IH QID Spironolactone 25 mg [Aldactone 25 MG] 25 mg PO DAILY PANTOPRAZOLE 40 mg Tablet [Protonix 40MG Tablet] 40 mg PO QAM Apixaban [Eliquis] 5 mg PO BID 30 Days #60 tablet Furosemide 40 mg [Lasix 40 MG] 40 mg PO DAILY 30 Days #30 tablet Metoprolol Succinate 100 mg [Toprol Xl 100 MG] 100 mg PO DAILY 30 Days #30 tablet Prednisone 20 mg [Deltasone 20 mg] 20 mg PO BID 5 Days #10 tablet Follow up with: GIO ORTIZ DO [Primary Care Provider] - 12/01/24 9:30 am KULWANT ROBERTS [ACTIVE STAFF] - 1 Week
[2024-11-23 12:19] VITALS: BP 128/86; PULSE 112; RESP 18; TEMP 97.4
== END 2024-11-23 12:40 | disposition home health service (06) ==
LOC: ED 11:35 → MED SURG 17:50
PROVIDERS: ADMIT Internal Medicine; ATTEND Internal Medicine
DX: J44.1 Chronic obstructive pulmonary disease with (acute) exacerbation (principal); R79.89 Other specified abnormal findings of blood chemistry; R00.0 Tachycardia, unspecified; I48.91 Unspecified atrial fibrillation; F17.200 Nicotine dependence, unspecified, uncomplicated; E11.22 Type 2 diabetes mellitus with diabetic chronic kidney disease; I13.0 Hypertensive heart and chronic kidney disease with heart failure and stage 1 through stage 4 chronic kidney disease, or unspecified chronic kidney disease; N18.9 Chronic kidney disease, unspecified; I50.9 Heart failure, unspecified; E66.811 Obesity, class 1; R05.1 Acute cough; Z79.899 Other long term (current) drug therapy; R60.0 Localized edema; Z99.81 Dependence on supplemental oxygen; I27.20 Pulmonary hypertension, unspecified
CPT/HCPCS: 0241U; 36415; 36600; 71260; 80053; 82375; 82803; 82947; 83605; 84145; 84484; 85025; 85027; 85379; 87040; 87070; 93005; 93268; 94640; 94760; 99285; G0378; Q3014; 99284; J0696; J2919; A9270-GY

== ENCOUNTER 2024-12-31 16:22 | Inpatient (IN) | payer MEDICARE ==
[2024-12-31] MEDS ORDERED: solu-MEDROL ONE (16:53)
[2024-12-31] MEDS ORDERED: Sterile H2O 10 ml IJ ONE (16:53)
[2024-12-31] MEDS: solu-MEDROL 125 MG, Sterile H2O 10 ml 2 ML IV ONE (16:55)
--- NOTE | 2024-12-31 17:02 | ERPHSYRPT ---
- History of Present Illness Time Seen by Provider: 12/31/24 16:41 Source: patient Exam Limitations: no limitations Patient Subjective Stated Complaint: C/O SOB that began last night is becoming progressively worse. Denies pain. Triage Nursing Assessment: Patient arrived by ambulance. She is alert but anxious. Labored breathing. 02 sats obtained on room air upon arrival and is 94%. Patient placed on her normal 4L per N/C and 02 sats increased to 98%. Edema noted to BLE; left worse than right. Soles of feet dirty. Physician History: 69-year-old female with history of hypertension, hyperlipidemia, coronary artery disease, congestive heart failure, atrial fibrillation on Eliquis, COPD, tobacco abuse with chronic respiratory failure on 3 L oxygen presented in the ER with increasing cough and difficulty breathing since last night. Patient reports coughing up clear to yellow sputum moderate in amount with aches and pains all over. Patient reports nose swelling of lower extremities. Using neb treatments at home with no significant relief. Denies any chest/sinus congestion. No fever or chills reported. Patient received DuoNeb and route and feeling a little better. Allergies/Adverse Reactions: No Known Drug Allergies Allergy (Verified 12/31/24 16:43) Home Medications: Albuterol 8 gm Mdi Hfa [Ventolin Hfa MDI] 2 puffs IH Q4H PRN PRN 08/02/15 [History] Atorvastatin Calcium [Lipitor] 80 mg PO HS 12/06/18 [History] Dapagliflozin Propanediol [Farxiga] 10 mg PO DAILY 12/07/21 [History] Tramadol HCl 50 mg [Ultram 50 mg] 50 mg PO Q6HPRN PRN 12/07/21 [History] Amlodipine Besylate [Norvasc] 2.5 mg PO DAILY 06/04/23 [History] Ranolazine 500 MG [Ranexa 500 MG] 1,000 mg PO BID 06/04/23 [History] Fluticasone/Umeclidin/Vilanter [Trelegy Ellipta 200-62.5-25] 1 each IH DAILY 09/14/23 [History] Sacubitril/Valsartan [Entresto 97 mg-103 mg Tablet] 1 each PO BID 09/14/23 [History] Famotidine 20 mg PO BID 05/22/24 [History] Albuterol/Ipratropium 3ml Neb* [DUONEB 0.5-3 MG/3 ml Neb] 3 ml IH QID 10/02/24 [History] Isosorbide Mononitrate 30 mg [Imdur 30 MG] 30 mg PO DAILY 10/02/24 [History] Spironolactone 25 mg [Aldactone 25 MG] 25 mg PO DAILY 10/02/24 [History] PANTOPRAZOLE 40 mg Tablet [Protonix 40MG Tablet] 40 mg PO QAM 10/13/24 [History] Ipratropium [place] 0.5 mg [Atrovent 0.5MG NEBULE] 0.5 each IH UD 12/16/24 [History] Hx Tetanus, Diphtheria Vaccination/Date Given: Yes (2021) Hx Influenza Vaccination/Date Given: Yes Hx Pneumococcal Vaccination/Date Given: Yes Immunizations Up to Date: Yes Travel Risk - International Travel Have you traveled outside of the country in past 3 weeks: No - Emerging Infectious Disease Are you exhibiting symptoms associated with any current EIDs: Yes Symptoms: Shortness of Breath - Review of Systems Constitutional: Fatigue Eyes: No Symptoms Ears, Nose, & Throat: No Symptoms Respiratory: Cough, Dyspnea, Dyspnea on Exertion (ROBLES), Wheezing Cardiac: No Symptoms Abdominal/Gastrointestinal: No Symptoms Genitourinary Symptoms: No Symptoms Musculoskeletal: No Symptoms Skin: No Symptoms Psychological: No Symptoms Endocrine: No Symptoms Hematologic/Lymphatic: No Symptoms - Past Medical History Pertinent Past Medical History: Yes Neurological History: Migraines ENT History: Cataracts Cardiac History: Arrhythmia, High Cholesterol, Hypertension, Myocardial Infarction ([place]) Respiratory History: CHF, COPD Endocrine Medical History: No Pertinent History Musculoskeletal History: Fractures, Osteoarthritis GI Medical History: GERD, Gallbladder Disease History: No Pertinent History Psycho-Social History: Anxiety Female Reproductive Disorders: No Pertinent History - Past Surgical History Past Surgical History: Yes Neuro Surgical History: No Pertinent History Cardiac: Cardiac Catheterization, Internal Defibrillator, Pacemaker Respiratory: No Pertinent History Gastrointestinal: Cholecystectomy Genitourinary: No Pertinent History Musculoskeletal: Orthopedic Surgery Female Surgical History: Hysterectomy Other Surgical History: right knee replacement, screw in pelvis, misha in left leg. skin cancer removed from right eye lid Significant Family History: no pertinent family hx - Social History Smoking Status: Current every day smoker How long have you smoked: "50 years" Exposure to second hand smoke: Yes Drug Use: none - Social Determinants of Health Will the patient participate in the screening: Yes Do you worry about a steady place to live?: No Do you have any problems with any of the following?: No known problems In the past 12 months,have you had to go without utilities?: No Transportation Issues: No Has anyone in your support network made you feel unsafe?: No Have you or anyone in your house had to go w/o enough food: No Comment: EMS reports that patient lives in a garage behind her son's home. Indicates home is not well kept. - Nursing Vital Signs Nursing Vital Signs: Initial Vital Signs Temperature 97.3 F 12/31/24 16:22 Pulse Rate 133 H 12/31/24 16:22 Respiratory Rate 25 H 12/31/24 16:22 Blood Pressure 111/64 12/31/24 16:22 O2 Sat by Pulse Oximetry 94 L 12/31/24 16:22 Pain Scale Pain Intensity 0 - Physical Exam General Appearance: no apparent distress, alert Eye Exam: PERRL/EOMI Ears, Nose, Throat Exam: hearing grossly normal Neck Exam: normal inspection, supple, full range of motion Respiratory Exam: respiratory distress, diminished breath sounds, accessory muscle use, rhonchi, wheezing Cardiovascular/Chest Exam: tachycardia Abdominal/Gastrointestinal Exam: soft, normal bowel sounds, No tenderness Extremity Exam: non-tender, normal range of motion Neurologic Exam: alert, oriented x 3, cooperative Skin Exam: normal color SpO2 Interpretation: O2 applied SpO2: 94 O2 Delivery: Nasal Cannula - Course EKG Interpreted by Me: RATE (130), Sinus Tach, Left Bacova Deviation, prolonged QT interval, Q-wave, Non-specific ST Changes Ordered Tests: Active Orders 24 hr Category Date Time Status Tax Collection Coordinator STAT Care 12/31/24 16:48 Active EKG-ER Only STAT Care 12/31/24 16:47 Active IV Insertion STAT Care 12/31/24 16:47 Active Oxygen-ED Only Nasal Cannula 4 lpm Care 12/31/24 17:24 Active CHEST 1 VIEW (PORTABLE) Stat Exams 12/31/24 16:48 Completed ARTERIAL BLOOD GASES Stat Lab 12/31/24 17:00 Completed BLOOD CULTURE Stat Lab 12/31/24 17:15 Received CBC W DIFF Stat Lab 12/31/24 17:05 Completed CMP Stat Lab 12/31/24 17:05 Completed Lactic Acid Stat Lab 12/31/24 17:00 Completed Lactic Acid Stat Lab 12/31/24 19:12 Received MAGNESIUM Stat Lab 12/31/24 17:05 Completed NT PRO BNPII Stat Lab 12/31/24 17:05 Completed PROCALCITONIN Stat Lab 12/31/24 17:05 Completed TROPONIN Q4H Lab 12/31/24 17:05 Completed TROPONIN Q4H Lab 12/31/24 21:00 Ordered TROPONIN Q4H Lab 01/01/25 01:00 Ordered UA W/RFX UR CULTURE Stat Lab 12/31/24 16:48 Ordered Transfer Order Routine Transfer 12/31/24 Ordered Medication Summary Discontinued Medications Generic Name Dose Route Start Last Admin Trade Name Freq PRN Reason Stop Dose Admin Adenosine Confirm 12/31/24 20:21 Adenosine 6 Mg/2 Ml Vial Administered 12/31/24 20:22 Dose 18 mg IV .STK-MED ONE Albuterol/Ipratropium 3 ml 12/31/24 16:47 12/31/24 18:54 Ipratropium/Albuterol Sulfate 3 Ml Ampul.Neb IH 12/31/24 16:48 Not Given STAT ONE Albuterol/Ipratropium Confirm 12/31/24 20:29 Ipratropium/Albuterol Sulfate 3 Ml Ampul.Neb Administered 12/31/24 20:30 Dose 3 ml IH .STK-MED ONE Methylprednisolone Sodium 0 mg 12/31/24 16:47 12/31/24 16:55 Succinate 125 mg/ Sterile IV 12/31/24 16:48 125 mg Water 2 ml STAT ONE Administration Azithromycin 500 mg in 250 mls @ 250 mls/hr 12/31/24 18:48 12/31/24 20:29 Zithromax 500 Mg/ 250 Ml Nacl Premix IV 12/31/24 19:47 250 mls/hr STAT STA 250 mls/hr Infusion Ceftriaxone Sodium 2 gm in 100 mls @ 200 mls/hr 12/31/24 18:48 12/31/24 19:54 Rocephin 2 Gm/100 Ml Nacl IV 12/31/24 19:17 Infused STAT ONE Infusion Ceftriaxone Sodium Confirm 12/31/24 18:50 Rocephin 2 Gm/100 Ml Nacl Administered 12/31/24 18:51 Dose 2 gm in 100 mls @ ud IV .STK-MED ONE Azithromycin Confirm 12/31/24 19:24 Zithromax 500 Mg/ 250 Ml Nacl Premix Administered 12/31/24 19:25 Dose 500 mg in 250 mls @ ud IV .STK-MED ONE Methylprednisolone Sodium Succinate Confirm 12/31/24 16:53 Methylprednis Sod Succ 125 Mg/2 Ml Vial Administered 12/31/24 16:54 Dose 125 mg .ROUTE .STK-MED ONE Sterile Water Confirm 12/31/24 16:53 Water For Injection,Sterile 10 Ml Vial Administered 12/31/24 16:54 Dose 10 ml IJ .STK-MED ONE Lab/Rad Data: Laboratory Result Diagrams 12/31/24 17:05 12/31/24 17:05 Laboratory Results 12/31/24 12/31/24 12/31/24 Range/Units 17:35 17:05 17:05 WBC (3.98-10.04) x10^3/uL RBC (3.93-5.22) x10^6/uL Hgb (11.2-15.7) g/dL Hct (34.1-44.9) % MCV (79.4-94.8) fL MCH (25.6-32.2) pg MCHC (32.2-35.5) g/dL RDW (11.7-14.4) % Plt Count (182-369) x10^3/uL MPV (9.4-12.3) fL Gran % (34.0-71.1) % Immature Gran % (Auto) (0.001-0.429) % Nucleat RBC Rel Count (0.00-0.2) % Eos # (Auto) (0.04-0.36) x10^3/uL Immature Gran # (Auto) (0.001-0.031) x10^3u/L Absolute Lymphs (auto) (1.18-3.74) x10^3/uL Absolute Monos (auto) (0.24-0.86) x10^3/uL Absolute Nucleated RBC (0.00-0.012) x10^3u/L Lymphocytes % (19.3-51.7) % Monocytes % (4.7-12.5) % Eosinophils % (0.7-5.8) % Basophils % (0.1-1.2) % Absolute Granulocytes (1.56-6.13) x10^3/uL Basophils # (0.01-0.08) x10^3/uL Puncture Site pCO2 (35-45) mmHg pO2 (75-100) mmHg Base Excess (-2.0-2.0) O2 Saturation (94-100) g/dF ABG pH (7.35-7.45) ABG HCO3 (22-28) ABG O2 Sat (Measured) (95-100) % Hiro Test A-a Gradient a/A Ratio Hemoglobin Carboxyhemoglobin (0.0-6.9) % THgb Methemoglobin (1.4-1.5) % Potassium 4.4 (3.5-5.1) Temperature C POC O2 Flow Rate % Sodium 135 (135-145) mmol/L Chloride 101 (98-107) mmol/L Carbon Dioxide 22 (22-30) mmol/L Anion Gap 15.6 H (5-15) MEQ/L BUN 28 H (7-17) mg/dL Creatinine 1.32 H (0.52-1.04) mg/dL Estimated GFR 43.2 ML/MIN Glucose 163 H (74-106) mg/dL Lactic Acid (0.4-2.0) Calcium 9.1 (8.4-10.2) mg/dL Magnesium 1.9 (1.6-2.3) mg/dL Total Bilirubin 1.10 (0.2-1.3) mg/dL AST 59 H (14-36) U/L ALT 55 H (0-35) U/L Alkaline Phosphatase 75 (38-126) U/L Troponin I 0.059 H* (0.000-0.033) ng/mL NT-Pro-B Natriuret Pep 7460 (<300) pg/mL Serum Total Protein 6.0 L (6.3-8.2) g/dL Albumin 3.8 (3.5-5.0) g/dL Procalcitonin 0.058 (0.030-0.080) ng/mL Influenza Type A Ag NEGATIVE (NEGATIVE) Influenza Type B Ag NEGATIVE (NEGATIVE) RSV (PCR) NEGATIVE (NEGATIVE) SARS-CoV-2 (PCR) NEGATIVE (NEGATIVE) 12/31/24 12/31/24 Range/Units 17:05 17:00 WBC 6.7 (3.98-10.04) x10^3/uL RBC 4.12 (3.93-5.22) x10^6/uL Hgb 10.8 L (11.2-15.7) g/dL Hct 34.8 (34.1-44.9) % MCV 84.5 (79.4-94.8) fL MCH 26.2 (25.6-32.2) pg MCHC 31.0 L (32.2-35.5) g/dL RDW 16.1 H (11.7-14.4) % Plt Count 232 (182-369) x10^3/uL MPV 10.6 (9.4-12.3) fL Gran % 66.8 (34.0-71.1) % Immature Gran % (Auto) 0.8 H (0.001-0.429) % Nucleat RBC Rel Count 0.0 (0.00-0.2) % Eos # (Auto) 0.01 L (0.04-0.36) x10^3/uL Immature Gran # (Auto) 0.05 H (0.001-0.031) x10^3u/L Absolute Lymphs (auto) 1.55 (1.18-3.74) x10^3/uL Absolute Monos (auto) 0.56 (0.24-0.86) x10^3/uL Absolute Nucleated RBC 0.00 (0.00-0.012) x10^3u/L Lymphocytes % 23.3 (19.3-51.7) % Monocytes % 8.4 (4.7-12.5) % Eosinophils % 0.2 L (0.7-5.8) % Basophils % 0.5 (0.1-1.2) % Absolute Granulocytes 4.45 (1.56-6.13) x10^3/uL Basophils # 0.03 (0.01-0.08) x10^3/uL Puncture Site RIGHT RADIAL pCO2 41 (35-45) mmHg pO2 96 (75-100) mmHg Base Excess 2.6 H (-2.0-2.0) O2 Saturation 92.4 L (94-100) g/dF ABG pH 7.43 (7.35-7.45) ABG HCO3 27.2 (22-28) ABG O2 Sat (Measured) 98.3 (95-100) % Hiro Test YES A-a Gradient 2 a/A Ratio 0.98 Hemoglobin 11.2 Carboxyhemoglobin 5.2 (0.0-6.9) % THgb Methemoglobin 0.7 L (1.4-1.5) % Potassium 4.1 (3.5-5.1) Temperature 37.0 C POC O2 Flow Rate 21 % Sodium (135-145) mmol/L Chloride (98-107) mmol/L Carbon Dioxide (22-30) mmol/L Anion Gap (5-15) MEQ/L BUN (7-17) mg/dL Creatinine (0.52-1.04) mg/dL Estimated GFR ML/MIN Glucose (74-106) mg/dL Lactic Acid 2.1 H (0.4-2.0) Calcium (8.4-10.2) mg/dL Magnesium (1.6-2.3) mg/dL Total Bilirubin (0.2-1.3) mg/dL AST (14-36) U/L ALT (0-35) U/L Alkaline Phosphatase (38-126) U/L Troponin I (0.000-0.033) ng/mL NT-Pro-B Natriuret Pep (<300) pg/mL Serum Total Protein (6.3-8.2) g/dL Albumin (3.5-5.0) g/dL Procalcitonin (0.030-0.080) ng/mL Influenza Type A Ag (NEGATIVE) Influenza Type B Ag (NEGATIVE) RSV (PCR) (NEGATIVE) SARS-CoV-2 (PCR) (NEGATIVE) - Progress Progress: improved, re-examined Air Movement: fair Progress Note: 12/31/24 19:29 69-year-old with multiple medical problems including CAD/CHF/A-fib on Eliquis/COPD with chronic respiratory failure on oxygen, tobacco use is evaluated for increasing cough and difficulty breathing. Patient was tachypneic and tachycardic on presentation, given neb treatment and Solu-Medrol, on reevaluation she is feeling a little better but still tachycardia with heart rate in 110s. EKG showed sinus tach with no ST elevation. Chest x-ray showed old changes with bilateral small effusion and questionable opacities reviewed by me followed by official read, given dose of antibiotics . Initial troponin of 0.059 and a BNP of 7000's which is fairly around her baseline, patient clinically does not seem to be in CHF exacerbation. I believe patient has COPD exacerbation, has negative flu COVID and RSV. Patient was initially on 5 L oxygen and gradually down to 3 L which is around her baseline on reevaluation. I believe patient would benefit with observation admission, neb treatment, steroid and antibiotics. I have shared the results of workup with patient and plan of admission which she understands and agrees. Discussed history/exam/workup and current management with Dr. Esparza and Dr. Schmitt, agreed with admission. Complexity of problem addressed: High acuity Complexity of data reviewed/analyzed: Extensive Risk of morbidity/mortality/complication: High risk 12/31/24 20:36 While in the ER patient had couple runs of SVT with heart rate in 180s. Patient has defibrillator but no discharge. We were ready to give her adenosine but she converted back to sinus tach with rate in 130s. She was having increased wheezing and shortness of breath, given neb treatment and placed on BiPAP. Feeling better on reevaluation. Blood Culture(s) Obtained: Yes Antibiotics given: Yes Discussed with Dr.: Lacy Nieves Will see patient in: hospital (observation) Counseled pt/family regarding: lab results, diagnosis, rad results, smoking cessation Medical Desision Making - Independent Historian Additional History obtained from: Pastor/EMT - Discussion of managment Care discussed with:: hospitalist (Dr. Hooks and Dr. Schmitt) Reviewed:: Test results Agreed on:: Treatment plan, place in obs Will see patient: in hospital - Diagnostic Testing Diagnostic test were ordered, analyzed, and reviewed by me: Yes Radiological Interpretation: Interpreted by me, Reviewed by me, Teleradiologist Report - Departure Departure Disposition: Observation Clinical Impression: Acute exacerbation of chronic obstructive pulmonary disease (COPD), Elevated troponin Condition: Stable Critical Care Time: No Referrals: GIO ORTIZ DO [Primary Care Provider] - Follow up/PCP as directed Instructions: Chronic Obstructive Pulmonary Disease
[2024-12-31 17:12] LABS: A-aADO2 2; ABG HEMOGLOBIN 11.2; ABG POTASSIUM 4.1 (3.5-5.1); ABG SITE RIGHT RADIAL; ALLEN TEST OK? YES; ARTERIAL BLD GAS O2 SATURATION 98.3 % (95-100); ARTERIAL BLOOD GAS BASE EXCESS 2.6 (-2.0-2.0); ARTERIAL BLOOD GAS FIO2 21 %; ARTERIAL BLOOD GAS PCO2 41 mmHg (35-45); ARTERIAL BLOOD GAS PO2 96 mmHg (75-100); ARTERIAL BLOOD GAS pH 7.43 (7.35-7.45); CARBOXYHEMOGLOBIN 5.2 % THgb (0.0-6.9); HCO3- 27.2 (22-28); HGB O2 SAT 92.4 g/dF (94-100); Lactic Acid 2.1 (0.4-2.0); Methhemoglobin 0.7 % (1.4-1.5); paO2 pAO1 0.98
[2024-12-31 17:23] LABS: Absolute Neutrophil Ct (ANC) 4.45 x10^3/uL (1.56-6.13); BASOPHIL % 0.5 % (0.1-1.2); Basophil (Absolute #) 0.03 x10^3/uL (0.01-0.08); Eosinophil % 0.2 % (0.7-5.8); Eosinophil (Absolute #) 0.01 x10^3/uL (0.04-0.36); Hematocrit 34.8 % (34.1-44.9); Hemoglobin 10.8 g/dL (11.2-15.7); IMMATURE GRAN # 0.05 x10^3u/L (0.001-0.031); IMMATURE GRAN % 0.8 % (0.001-0.429); Lymphocyte (Absolute #) 1.55 x10^3/uL (1.18-3.74); Lymphocytes % 23.3 % (19.3-51.7); Mean Cell Volume 84.5 fL (79.4-94.8); Mean Corpuscular Hemoglobin 26.2 pg (25.6-32.2); Mean Platelet Volume 10.6 fL (9.4-12.3); Monocyte (Absolute #) 0.56 x10^3/uL (0.24-0.86); Monocytes % 8.4 % (4.7-12.5); Neutrophil % 66.8 % (34.0-71.1); Platelet Count 232 x10^3/uL (182-369); Red Blood Count 4.12 x10^6/uL (3.93-5.22); Red Cell Distribution Width 16.1 % (11.7-14.4); White Blood Count 6.7 x10^3/uL (3.98-10.04)
[2024-12-31 18:02] LABS: ALBUMIN 3.8 g/dL (3.5-5.0); ANION GAP 15.6 MEQ/L (5-15); BILIRUBIN,TOTAL 1.1 mg/dL (0.2-1.3); Calcium 9.1 mg/dL (8.4-10.2); Creatinine 1 1.32 mg/dL (0.52-1.04); EST GLOMERULAR FILTRATION RATE 43.2 ML/MIN; MAGNESIUM 1.9 mg/dL (1.6-2.3); PROCALCITONIN 0.058 ng/mL (0.030-0.080); Potassium 4.4 mmol/L (3.5-5.1)
[2024-12-31 18:11] LABS: INFLUENZA A NEGATIVE (NEGATIVE); INFLUENZA B NEGATIVE (NEGATIVE); RESPIRATORY SYNCTIAL VIRUS NEGATIVE (NEGATIVE); SARS-CoV-2 Xpert Express NEGATIVE (NEGATIVE)
[2024-12-31 18:15] LABS: TROPONIN 0.059 ng/mL (0.000-0.033)
--- NOTE | 2024-12-31 18:25 | XRAY ---
CLINICAL HISTORY: sob COMPARISON: Prior CT dated 11/21/2024 12:33:44 FILEMAKER DEVELOPER TECHNIQUE: X-ray chest in anteroposterior (AP) portable projection obtained. FINDINGS: Still noted increased bronchovascular shadowing with reticulations seen in the lung morley bilaterally. Loss of the normal sharpness of both costophrenic angles could be due to mild residual pleural effusions Apical pleural thickening was seen bilaterally, more so on the right side A pacemaker in situ in a satisfactory position. Cardiomegaly seen. Prominent kaila seen, more on the right side, Reduced mineralization of the imaged bony structures seen suggests osteopenia. Normal soft tissues. IMPRESSION: 1. Interval decrease in bilateral pleural effusions with some blunting of bilateral costophrenic angles remaining signifying mild residual pleural effusions/pleural thickening. 2. Bilateral patchy reticular shadowing with some subtle alveolar opacities appears stable. 3. Clinical and lab correlation advised. Electronically Signed by: Live Euceda MD. (12/31/2024 18:19:45 EST)
[2024-12-31] MEDS ORDERED: ROCEPHIN 2 GM/100 ML NACL 2 GM/100 ML IVPB IV ONE (18:50)
[2024-12-31] MEDS: ROCEPHIN 2 GM/100 ML NACL 2 GM/100 ML IVPB IV ONE (18:51)
[2024-12-31] MEDS: DUONEB 0.5-3 MG/3 ml Neb IH ONE (18:54)
[2024-12-31] MEDS ORDERED: Zithromax 500 MG/ 250 ML NaCl Premix 500 MG/250 ML IVPB IV ONE (19:24)
[2024-12-31] MEDS: Zithromax 500 MG/ 250 ML NaCl Premix 500 MG/250 ML IVPB IV STA (19:27)
[2024-12-31] MEDS ORDERED: Adenocard IV 6 MG/2 ML IV ONE (20:21)
[2024-12-31] MEDS ORDERED: DUONEB 0.5-3 MG/3 ml Neb IH ONE (20:29)
[2024-12-31] MEDS ORDERED: Sodium Chloride 0.9% 500 ML 500 ML IV ONE (20:35)
[2024-12-31] MEDS: Sodium Chloride 0.9% 500 ML 500 ML IV ONE (20:37)
[2025-01-01] MEDS ORDERED: TYLENOL 325 MG PO PRN (01:43)
[2025-01-01] MEDS ORDERED: DUONEB 0.5-3 MG/3 ml Neb IH PRN (01:43)
[2025-01-01] MEDS: Lopressor 50 MG PO ONE (02:09)
[2025-01-01] MEDS: DUONEB 0.5-3 MG/3 ml Neb IH SCH (02:29)
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
[2025-01-01 04:03] LABS: ANION GAP 18.5 MEQ/L (5-15); Calcium 9.1 mg/dL (8.4-10.2); Creatinine 1 1.29 mg/dL (0.52-1.04); EST GLOMERULAR FILTRATION RATE 44.4 ML/MIN; Potassium 4.6 mmol/L (3.5-5.1)
[2025-01-01 04:17] LABS: Hematocrit 37.3 % (34.1-44.9); Hemoglobin 11.5 g/dL (11.2-15.7); Mean Cell Volume 84.8 fL (79.4-94.8); Mean Corpuscular Hemoglobin 26.1 pg (25.6-32.2); Mean Corpuscular Hgb Concent. 30.8 g/dL (32.2-35.5); Mean Platelet Volume 10.9 fL (9.4-12.3); Platelet Count 242 x10^3/uL (182-369)
[2025-01-01 05:33] LABS: Appearance Cloudy (Clear); Bilirubin Small (Negative); Blood Negative (Negative); Epithelial Cells Many /HPF (None Seen); Glucose, Urine 250 mg/dL (Negative); Ketones Trace (Negative); Leukocyte Esterase Negative (Negative); Nitrite Negative (Negative); Protein,Urine Dip 100 (Negative); Specific Gravity >=1.030 (1.005-1.030)
[2025-01-01 05:46] LABS: Bacteria Many /HPF (None Seen)
[2025-01-01] MEDS ORDERED: MEDICATION INTERVENTION MC SCH (07:30)
[2025-01-01] MEDS: ELIQUIS 2.5 MG TABLET PO SCH (08:54)
[2025-01-01] MEDS: Imdur 30 MG PO SCH (08:55)
[2025-01-01] MEDS: ECOTRIN 81 MG PO SCH (08:55)
[2025-01-01] MEDS: Protonix 40MG Tablet PO SCH (08:55)
[2025-01-01] MEDS: Pepcid 20 MG PO SCH (08:55)
[2025-01-01] MEDS: Ranexa 500 MG PO SCH (08:57)
[2025-01-01] MEDS: ENTRESTO 49 MG-51 MG TABLET PO SCH (08:58)
[2025-01-01] MEDS: Aldactone 25 MG PO SCH (08:58)
[2025-01-01] MEDS: NORVASC 5 MG PO SCH (08:58)
[2025-01-01] MEDS: Toprol Xl 100 MG PO SCH (08:59)
[2025-01-01] MEDS: Lasix 40 MG PO SCH (08:59)
[2025-01-01] MEDS: solu-MEDROL 40 MG, Sterile H2O 10 ml 1 ML IV SCH (08:59)
[2025-01-01] MEDS ORDERED: NON-FORMULARY ITEM (Sacubitril/Valsartan [Entresto 97 Mg-103 Mg Tablet] 1 EACH Tablet) PO SCH (10:00)
[2025-01-01] MEDS ORDERED: BABY ASPIRIN 81 MG CHEW PO SCH (10:00)
[2025-01-01] MEDS ORDERED: NON-FORMULARY ITEM (Dapagliflozin Propanediol [Farxiga] 10 MG Tablet) PO SCH (10:00)
[2025-01-01] MEDS ORDERED: NON-FORMULARY ITEM (Amlodipine Besylate [Norvasc] 2.5 MG Tablet) PO SCH (10:00)
[2025-01-01] MEDS ORDERED: NON-FORMULARY ITEM (Apixaban [Eliquis] 5 MG Tablet) PO SCH (10:00)
[2025-01-01] MEDS: Xopenex 1.25 MG/0.5 ML UD NEBULE IH SCH (13:15)
[2025-01-01] MEDS: ROCEPHIN 1 GM / 100 ML NaCl 1 GM/100 ML IVPB IV SCH (18:00)
[2025-01-01] MEDS ORDERED: Sodium Chloride 3 ML UD NEBULES IH ONE (18:34)
[2025-01-01] MEDS: PATIENT OWN MEDICATION IH SCH (18:47)
[2025-01-01] MEDS ORDERED: LIPITOR 40MG PO SCH (22:00)
[2025-01-01] MEDS: ZOCOR 20MG PO SCH (22:04)
[2025-01-01] MEDS: ULTRAM 50 MG PO PRN (22:05)
[2025-01-02] MEDS ORDERED: Sodium Chloride 3 ML UD NEBULES IH ONE (00:52)
[2025-01-02 06:04] LABS: Hematocrit 34.3 % (34.1-44.9); Hemoglobin 10.4 g/dL (11.2-15.7); Mean Cell Volume 85.5 fL (79.4-94.8); Mean Corpuscular Hemoglobin 25.9 pg (25.6-32.2); Mean Corpuscular Hgb Concent. 30.3 g/dL (32.2-35.5); Mean Platelet Volume 10.9 fL (9.4-12.3); Platelet Count 258 x10^3/uL (182-369); Red Blood Count 4.01 x10^6/uL (3.93-5.22); Red Cell Distribution Width 16.4 % (11.7-14.4)
[2025-01-02 06:29] LABS: ANION GAP 14.7 MEQ/L (5-15); BILIRUBIN,TOTAL 0.6 mg/dL (0.2-1.3); Calcium 9.2 mg/dL (8.4-10.2); Creatinine 1 1.47 mg/dL (0.52-1.04); EST GLOMERULAR FILTRATION RATE 37.9 ML/MIN; Potassium 5.2 mmol/L (3.5-5.1); Total Protein 6.4 g/dL (6.3-8.2)
[2025-01-02] MEDS: HUMALOG SQ PRN (07:48)
[2025-01-02] MEDS: VELTASSA PO STA (07:50)
[2025-01-02] MEDS ORDERED: NON-FORMULARY ITEM (Fluticasone/Umeclidin/Vilanter [Trelegy Ellipta 200-62.5-25] 1 EACH Bl IH SCH (10:00)
--- NOTE | 2025-01-02 11:21 | PCM.NOTE ---
Date and Time: 01/02/25 1111 Subjective Assessment: 01/02/25 69-year-old woman with history of COPD on chronic oxygen, HFrEF, A-fib, CAD, and tobacco use. She presented with dyspnea on 01/01/25. Of note, patient has been admitted 5 times in the last 3 months with COPD exacerbations, 4 times year, and most recently earlier this month at [facility]. She presented again today with 1 day of progressive worsening of her chronic dyspnea, not relieved by nebulizers or increasing her oxygen. No cough, and denies any fever, congestion, chest pain, or nausea. She denies any sick contacts, myalgias, diarrhea. She denies any leg swelling, orthopnea, or PND. On arrival to the ED, she was initially put from her chronic 3 L oxygen at home up to 4 to 5 L, but then weaned back down. However, she had an episode of reported SVT in the ED, although she has a known history of A-fib with RVR on prior admissions. She was initially placed on BiPAP, but is now transition back to 4-5 L nasal cannula. Heart rate is currently well-controlled. Duonebs changed to Xoponex as HR became rapid yesterday. It is better controlled today and will continue to monitor after morning meds. She is c/o continued SOB and repeat CXR ordered. She did use the bipap overnight and today she is on 5lNC 96%. She rpeorts she is not eating well as she is SOB. Sputum culture ordered as she is coughing up thick yellow sputum. Lactic acid continues to be elevated at 2.5 unable to give fluids d/t CHF and BL pleural effusions. K+ 5.2 and Veltassa gave, spirolactone stopped. LAsix held d/t ANURADHA. Pt had a temp of 99 last night at 4AM. Blood cultures x2 negative. UC pending. Continue ceftriaxone, xoponex, steroids, Trelegy. Steroids increased today. She denies CP, Abd. pain, N/V/D. - Review of Systems Constitutional: No Fever, No Chills Eyes: No Symptoms Ears, Nose, & Throat: No Symptoms Respiratory: Cough, Short Of Breath, Wheezing Cardiac: No Chest Pain, No Edema, No Syncope Abdominal/Gastrointestinal: No Abdominal Pain, No Nausea, No Vomiting, No Diarrhea Genitourinary Symptoms: No Dysuria Musculoskeletal: No Back Pain, No Neck Pain Skin: No Rash Neurological: No Dizziness, No Focal Weakness, No Sensory Changes Psychological: No Symptoms Endocrine: No Symptoms Hematologic/Lymphatic: No Symptoms Immunological/Allergic: No Symptoms Objective Exam General Appearance: no apparent distress, alert, obese Neurologic Exam: alert, oriented x 3, cooperative, normal mood/affect, nml cerebellar function, sensation nml, No motor deficits Skin Exam: normal color, warm, dry Eye Exam: PERRL, EOMI, eyes nml inspection Ears, Nose, Throat Exam: normal ENT inspection, pharynx normal, moist mucous membranes Neck Exam: normal inspection, non-tender, supple, full range of motion Respiratory Exam: diminished breath sounds, wheezing, No respiratory distress Cardiovascular Exam: normal heart sounds, tachycardia, irregular Gastrointestinal/Abdomen Exam: soft, No tenderness, No mass Extremity Exam: normal inspection, normal range of motion Back Exam: normal inspection, normal range of motion, No CVA tenderness, No vertebral tenderness Pelvic Exam: deferred Rectal Exam: deferred Objective Data Vital Signs: Vital Signs - 24 hr Temp Pulse Resp BP BP Pulse Ox 01/02/25 09:32 113 H 121/79 01/02/25 09:09 115 H 26 H 85 L 01/02/25 07:22 9731 F 113 H 19 113/63 96 01/02/25 04:00 99.1 F 100 H 18 117/70 95 01/02/25 01:01 110 H 21 92 L 01/01/25 23:44 97.1 F 111 H 16 114/80 95 01/01/25 20:00 97.5 F 109 H 20 104/61 95 01/01/25 18:52 111 H 22 95 01/01/25 16:55 97.6 F 113 H 22 100/68 90 L 01/01/25 13:20 112 H 18 94 L 01/01/25 12:02 97.7 F 114 H 20 117/78 98 Pain Assessment - Last Documented Pain Intensity 0 Intake and Output: Intake & Output 12/30/24 12/31/24 01/01/25 01/02/25 11:59 11:59 11:59 11:59 Intake Total 300 680 Output Total 200 850 Balance 100 -170 Weight 92 kg Lab Results: Lab Results-Last 24 Hours 01/01/25 01/02/25 01/02/25 Range/Units 10:15 04:00 05:59 WBC 11.0 H (3.98-10.04) x10^3/uL RBC 4.01 (3.93-5.22) x10^6/uL Hgb 10.4 L (11.2-15.7) g/dL Hct 34.3 (34.1-44.9) % MCV 85.5 (79.4-94.8) fL MCH 25.9 (25.6-32.2) pg MCHC 30.3 L (32.2-35.5) g/dL RDW 16.4 H (11.7-14.4) % Plt Count 258 (182-369) x10^3/uL MPV 10.9 (9.4-12.3) fL Sodium (135-145) mmol/L Potassium (3.5-5.1) mmol/L Chloride (98-107) mmol/L Carbon Dioxide (22-30) mmol/L Anion Gap (5-15) MEQ/L BUN (7-17) mg/dL Creatinine (0.52-1.04) mg/dL Estimated GFR ML/MIN Glucose (74-106) mg/dL POC Glucometer (74 to 106) mg/dL Hemoglobin A1c (4.5-6.0) % Lactic Acid 2.7 H 2.5 H (0.4-2.0) Calcium (8.4-10.2) mg/dL Total Bilirubin (0.2-1.3) mg/dL AST (14-36) U/L ALT (0-35) U/L Alkaline Phosphatase (38-126) U/L Serum Total Protein (6.3-8.2) g/dL Albumin (3.5-5.0) g/dL 01/02/25 01/02/25 01/02/25 Range/Units 05:59 05:59 07:32 WBC (3.98-10.04) x10^3/uL RBC (3.93-5.22) x10^6/uL Hgb (11.2-15.7) g/dL Hct (34.1-44.9) % MCV (79.4-94.8) fL MCH (25.6-32.2) pg MCHC (32.2-35.5) g/dL RDW (11.7-14.4) % Plt Count (182-369) x10^3/uL MPV (9.4-12.3) fL Sodium 135 (135-145) mmol/L Potassium 5.2 H (3.5-5.1) mmol/L Chloride 100 (98-107) mmol/L Carbon Dioxide 25 (22-30) mmol/L Anion Gap 14.7 (5-15) MEQ/L BUN 51 H (7-17) mg/dL Creatinine 1.47 H (0.52-1.04) mg/dL Estimated GFR 37.9 ML/MIN Glucose 305 H (74-106) mg/dL POC Glucometer 329 H (74 to 106) mg/dL Hemoglobin A1c 7.00 H (4.5-6.0) % Lactic Acid (0.4-2.0) Calcium 9.2 (8.4-10.2) mg/dL Total Bilirubin 0.60 (0.2-1.3) mg/dL AST 35 (14-36) U/L ALT 60 H (0-35) U/L Alkaline Phosphatase 82 (38-126) U/L Serum Total Protein 6.4 (6.3-8.2) g/dL Albumin 4.0 (3.5-5.0) g/dL Radiology Exams: Radiology Procedures Category Date Time Status CHEST 1 VIEW (PORTABLE) Routine Exams 01/02/25 11:10 Ordered CHEST 1 VIEW (PORTABLE) Stat Exams 12/31/24 16:48 Completed Multi-Disciplinary Progress Notes: Multi-Disciplinary Progress Notes 01/01/25 14:19 Respiratory Note by Alaina Alvarado is in pt's bag of clothes in the closet in her room. Initialized on 01/01/25 14:19 - END OF NOTE Assessment/Plan (1) Acute exacerbation of chronic obstructive pulmonary disease (COPD) Current Visit: Yes Status: Acute Assessment & Plan: - with no change in appearance of chest x-ray to explain worsening. However, this is patient's sixth admission with a COPD exacerbation in the last 3 months. Concerning that patient might be approaching end-stage lung disease. However, she is not having any CO2 retention noted on her ABG. She was initially placed on BiPAP because of concern for her A-fib RVR, but currently she is rate controlled and stable on 4 L oxygen. Steroids as Solu-Medrol 40 mg IV BID- changed to Q8 DuoNebs changed to Xoponex d/t A-fib Ceftriaxone, home inhaler - Sputum culture - Repeat CXR today - 5lNC-96%- BL 3L NC - CBC reviewed - Temp 99 at 0400- tylenol PRN Code(s): J44.1 - CHRONIC OBSTRUCTIVE PULMONARY DISEASE W (ACUTE) EXACERBATION (2) Afib Current Visit: No Status: Chronic Assessment & Plan: reportedly in fast rhythm initially called SVT in the ED, but currently she is mostly rate controlled, although heart rate is in the low 110s. Patient has not taking any of her home medications on admission, including her Toprol-XL. Gave metoprolol tartrate 50 mg x 1 now, then resumed her Toprol-XL 100 mg daily in the morning. Continue Eliquis 5 BID - Tele Code(s): I48.91 - UNSPECIFIED ATRIAL FIBRILLATION (3) CHF (congestive heart failure) Current Visit: No Status: Acute Assessment & Plan: with EF 15 to 20% on echocardiogram done in October. Currently appears to be euvolemic. Although her BNP is elevated at 7460, this is essentially unchanged from her baseline previously. - Follows Dr. Forrest - Continue Entresto 1 tab BID, - Toprol-XL 100 mg daily, - Farxiga 10 daily, and - Lasix 40 daily held d/t ANURADHA Hold spironolactone 25 mg jose m d/t ANURADHA and hyperkalemia - CXR reviewed - Tele Code(s): I50.9 - HEART FAILURE, UNSPECIFIED (4) Pleural effusion Current Visit: No Status: Acute Assessment & Plan: - As seen on CXR: IMPRESSION: 1. Interval decrease in bilateral pleural effusions with some blunting of bilateral costophrenic angles remaining signifying mild residual pleural effusions/pleural thickening. 2. Bilateral patchy reticular shadowing with some subtle alveolar opacities appears stable. 3. Clinical and lab correlation advised. 01/02 - repeat CXR today Code(s): J90 - PLEURAL EFFUSION, NOT ELSEWHERE CLASSIFIED (5) HTN (hypertension) Current Visit: No Status: Chronic Assessment & Plan: - BP stable - Continue home meds Code(s): I10 - ESSENTIAL (PRIMARY) HYPERTENSION (6) Obesity (BMI 30.0-34.9) Current Visit: No Status: Chronic Assessment & Plan: - advised diet and exercise control Code(s): E66.811 - OBESITY, CLASS 1 (7) CAD (coronary artery disease) Current Visit: Yes Status: Chronic Assessment & Plan: per history, not having any current chest pain. Her troponins have been flat over 3 checks here. Continue home aspirin 81 mg, atorvastatin 80 mg, Ranexa 1000 mg BID Code(s): I25.10 - ATHSCL HEART DISEASE OF [place] CORONARY ARTERY W/O ANG PCTRS (8) Type II diabetes mellitus Current Visit: Yes Status: Acute Qualifiers: Diabetes mellitus oysterman insulin use: without correction use Diabetes mellitus complication status: without complication Qualified Code(s): E11.9 - Type 2 diabetes mellitus without complications Assessment & Plan: - New dx - Will need D/C education - A1C 7.0 - Accuchecks ac/hs - Humalog s/s- mod dosing - Nutrition consult - Will need OP f/u with PCP - Pt states she will not take any insulin OP if needed. (9) Lactic acidosis Current Visit: Yes Status: Acute Assessment & Plan: - LA 2.5- improved- trend - Unable to give fluids at this time d/t CHF, SOB Code(s): E87.20 - ACIDOSIS, UNSPECIFIED (10) Tobacco dependence Current Visit: Yes Status: Chronic Assessment & Plan: - advised cessation VTE: Eliquis PPI: Protonix Next of KIN: Child- [place] [phone] D/C plan: 2-3 days Code status: Full Code(s): F17.200 - NICOTINE DEPENDENCE, UNSPECIFIED, UNCOMPLICATED
[2025-01-02 12:25] LABS: MAGNESIUM 2.2 mg/dL (1.6-2.3)
--- NOTE | 2025-01-02 12:52 | XRAY ---
CLINICAL HISTORY: increased SOB COMPARISON: 12/31/2024 CR. TECHNIQUE: X-ray chest in anteroposterior (AP) portable projection obtained. FINDINGS: Redemonstration of increased bronchovascular shadowing with reticulations seen in the lung morley bilaterally. Loss of the normal sharpness of both costophrenic angles could be due to mild residual pleural effusions. Apical pleural thickening was seen bilaterally, more so on the right side. A pacemaker in situ in a satisfactory position. Cardiomegaly seen. Prominent kaila seen, more on the right side, Reduced mineralization of the imaged bony structures seen suggests osteopenia. Normal soft tissues. IMPRESSION: 1. Redemonstration of increased bronchovascular shadowing with reticulations seen in the lung morley bilaterally. 2. Loss of the normal sharpness of both costophrenic angles could be due to mild residual pleural effusions. 3. No significant interval changes. 4. Clinical and lab correlation is advised. Electronically Signed by: Live Euceda MD. (01/02/2025 12:47:30 EST)
[2025-01-02] MEDS: Sodium Chloride 3 ML UD NEBULES IH SCH (13:48)
[2025-01-02] MEDS: solu-MEDROL 40 MG, Sterile H2O 10 ml 1 ML IV SCH (17:36)
[2025-01-02] MEDS: Sodium Chloride 0.9% 250 ML 250 ML IV SCH (17:57)
[2025-01-02] MEDS ORDERED: Advair Hfa 115/21 Common canister IH SCH (19:00)
[2025-01-02] MEDS: OCEAN Nasal Spray NS PRN (23:44)
[2025-01-03] MEDS: PROVENTIL 2.5 MG/3 ML NEB IH PRN (01:09)
[2025-01-03 05:58] LABS: Hematocrit 35.6 % (34.1-44.9); Hemoglobin 11.1 g/dL (11.2-15.7); Mean Cell Volume 83.8 fL (79.4-94.8); Mean Corpuscular Hemoglobin 26.1 pg (25.6-32.2); Mean Corpuscular Hgb Concent. 31.2 g/dL (32.2-35.5); Mean Platelet Volume 10.7 fL (9.4-12.3); Platelet Count 279 x10^3/uL (182-369); Red Blood Count 4.25 x10^6/uL (3.93-5.22); Red Cell Distribution Width 16.2 % (11.7-14.4); White Blood Count 12.3 x10^3/uL (3.98-10.04)
[2025-01-03 06:21] LABS: ALBUMIN 4.2 g/dL (3.5-5.0); ANION GAP 17.1 MEQ/L (5-15); BILIRUBIN,TOTAL 0.7 mg/dL (0.2-1.3); Calcium 9.6 mg/dL (8.4-10.2); Creatinine 1 1.76 mg/dL (0.52-1.04); EST GLOMERULAR FILTRATION RATE 30.6 ML/MIN; Potassium 5.1 mmol/L (3.5-5.1); Total Protein 6.8 g/dL (6.3-8.2)
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
[2025-01-03] MEDS: PHARMACY DOSING REQUEST MC ONE (11:02)
[2025-01-03] MEDS: PATIENT OWN MEDICATION TOP SCH (11:12)
[2025-01-03] MEDS: HUMALOG SQ PRN (11:36)
[2025-01-03] MEDS: Sodium Chloride 0.9% 500 ML 500 ML IV ONE (16:24)
[2025-01-03 16:40] LABS: A-aADO2 108; ABG HEMOGLOBIN 11.2; ABG POTASSIUM 5.6 (3.5-5.1); ABG SITE LEFT RADIAL; ALLEN TEST OK? YES; ARTERIAL BLD GAS O2 SATURATION 98.7 % (95-100); ARTERIAL BLOOD GAS BASE EXCESS -2.8 (-2.0-2.0); ARTERIAL BLOOD GAS FIO2 36 %; ARTERIAL BLOOD GAS PCO2 37 mmHg (35-45); ARTERIAL BLOOD GAS PO2 102 mmHg (75-100); ARTERIAL BLOOD GAS pH 7.38 (7.35-7.45); CARBOXYHEMOGLOBIN 1.1 % THgb (0.0-6.9); HCO3- 21.9 (22-28); HGB O2 SAT 96.9 g/dF (94-100); Methhemoglobin 0.8 % (1.4-1.5); paO2 pAO1 0.49
--- NOTE | 2025-01-03 17:25 | TM.IN ---
Tele-Medicine Incident Note - Incident Note Tel-Medicine Incident Note: 01/03/25 1720 Pt had an episode this afternoon when getting up to use the restroom and passed out per nurse, Samantha. Pt's eyes rolled back and lips turned blue. Pt awaoke right away but not acting herself per nursing. + hypotension after episode. 500ml fluids bolus gave. Stat labs ordered including d-dimer, lactic acid, and ABG. BC x2 as lactic was elevated again. Unable to do CT with PE protocol d/t kidney function. Amlodipine held. Will reassess after fluid bolus and labs completed. Telemedicine Encounter - Telemedicine Encounter Telemedicine Encounter: "The entirety of this encounter was performed via Telemedicine" This visit was performed using real-time audio and video connection between my location and thepatients locationwith the assistance of a surrogateat the patients location. Written or verbal consent was obtained from the patient/guardian to perform this visit [email or web address] technology. Any patient questions regarding the telemedicine interaction were answered.
[2025-01-03 17:49] LABS: MAGNESIUM 2.5 mg/dL (1.6-2.3); Potassium 5.7 mmol/L (3.5-5.1)
[2025-01-03] MEDS: NOREPINEPHRINE 8 MG/250 ML-D5W 8 MG/250 ML PLAST..BAG IV PRN (18:00)
[2025-01-03] MEDS: Zofran 4 MG/2 ML VIAL IV PRN (18:23)
[2025-01-03] MEDS: Kayexylate 15 GM/60 ML RC ONE (18:47)
--- NOTE | 2025-01-03 20:27 | XRAY ---
CLINICAL HISTORY: change in LOC COMPARISON: None. TECHNIQUE: Axial noncontrast CT scan of the brain was performed from the skull base to the high parietal region. One of the following dose reduction techniques was utilized for this exam: Automated exposure control, adjustment of the mA and/or kV according to patient size, use of iterative reconstruction. FINDINGS: There are tiny ill-defined iso-to hypodense areas noted in the subcortical and periventricular white matter bilaterally, suggestive of microvascular ischemic changes. The ventricular system, cortical sulci and basal cisterns are prominent, consistent with senile changes. The visualized brain parenchyma shows normal appearance. Olsen-white matter differentiation is maintained. No midline shifts or deformity. No intracerebral or extra axial hematoma. Normal CT appearance of the posterior fossa structures namely the cerebellar hemispheres, brainstem, and cerebellar peduncles. The cerebello-pontine angles are clear. The osseous structures in the skull base are unremarkable. Mucosal thickening in right sphenoid sinus. Postsurgical changes on right mastoid bone. Left mastoid air cells appear unremarkable. Hyperostosis frontalis internal. IMPRESSION: 1. No established acute infarction seen at the present study. Early changes of stroke may not be detected on a CT scan. If strong clinical suspicion of stroke then suggest MRI with diffusion-weighted imaging. 2. Chronic microvascular ischemic changes and senile cortical atrophy. [facility] was called at at 07:17 PM WEBSITE OPTIMIZATION STRATEGIST, 01/03/2025, and Da (RN) was informed regarding the negative stroke results. Electronically Signed by: Live Euceda MD. (01/03/2025 20:21:17 EST)
[2025-01-03 23:02] LABS: Appearance Cloudy (Clear); Bilirubin Small (Negative); Blood Negative (Negative); Epithelial Cells Many /HPF (None Seen); Glucose, Urine Negative (Negative); Ketones Negative (Negative); Leukocyte Esterase Trace (Negative); Nitrite Negative (Negative); Protein,Urine Dip 100 (Negative); Specific Gravity 1.025 (1.005-1.030); Urobilinogen 0.2 mg/dL (0.2); WBC 0-2 /HPF (0-5)
[2025-01-03 23:11] LABS: Bacteria Few /HPF (None Seen); Budding Yeast Few /HPF (None Seen)
[2025-01-03] MEDS: VELTASSA PO STA (23:53)
[2025-01-03] MEDS: Compazine 10 MG/2 ML IV PRN (23:53)
[2025-01-04 04:42] LABS: Hematocrit 35.3 % (34.1-44.9); Hemoglobin 10.8 g/dL (11.2-15.7); Mean Cell Volume 83.3 fL (79.4-94.8); Mean Corpuscular Hemoglobin 25.5 pg (25.6-32.2); Mean Corpuscular Hgb Concent. 30.6 g/dL (32.2-35.5); Mean Platelet Volume 10.9 fL (9.4-12.3); Platelet Count 227 x10^3/uL (182-369); Red Blood Count 4.24 x10^6/uL (3.93-5.22); Red Cell Distribution Width 16.3 % (11.7-14.4); White Blood Count 12.8 x10^3/uL (3.98-10.04)
[2025-01-04 04:57] LABS: ALBUMIN 3.9 g/dL (3.5-5.0); Calcium 9.1 mg/dL (8.4-10.2); Creatinine 1 2.26 mg/dL (0.52-1.04); EST GLOMERULAR FILTRATION RATE 22.6 ML/MIN; Potassium 5.4 mmol/L (3.5-5.1); Total Protein 6.3 g/dL (6.3-8.2)
--- NOTE | 2025-01-04 05:32 | PCM.NOTE ---
Date and Time: 01/04/25 0526 Subjective Assessment: Ms. Pedraza is a 69 year old female with a pmhx of COPD on chronic oxygen, HFrEF, A-fib, CAD, and tobacco use who presented 12/31/24 with complaints of progressive dyspnea. Of note, patient has been admitted 5 times in the last 3 months with COPD exacerbations, 4 times year, and most recently earlier this month at [facility].On arrival to the ED, patient was tachycardic, tachypneic, and hypoxic. Initial CXR on 12/31/24 showed Interval decrease in bilateral pleural effusions with some blunting of bilateral costophrenic angles remaining signifying mild residual pleural effusions/pleural thickening. Bilateral patchy reticular shadowing with some subtle alveolar opacities appears stable. Repeat CXR 01/02/25 no significant interval changes. While in ED patient had an episode of reported SVT although she has a known history of A-fib with RVR on prior admissions. She was initially placed on BiPAP, but is now transition back to 4-5 L nasal cannula. Heart rate is currently well-controlled. Admitted for COPD exacerbation. IP treatment with ceftriaxone, solumedrol, and xopenex. Events noted 01/03/25 of patient with syncopal episode and low BP- patient started on levophed drip and transitioned to ICU bed. Levophed drip paused currently as map is > 70. 01/04/25: Met with patient bedside. No overnight events. Levophed drip has been paused. Discussed lab findings with noted elevated in LFTs and creat. Cardiology and nephrology have been consulted. Echo ordered. Patient with multiple complexities requiring multiple specialty consults - may consider transfer pending consults. Patient agreeable to plan and requesting [facility] pending cardio/nephro evaluations. VQ scan ordered - results showing pleural effusions - low probability for PE. <MILLIE KENDRICK - Last Filed: 01/04/25 15:47> Date and Time: 01/04/252016 <DAI FRY - Last Filed: 01/04/25 20:24> - Review of Systems Constitutional: No Symptoms Eyes: No Symptoms Ears, Nose, & Throat: No Symptoms Respiratory: Short Of Breath Cardiac: No Symptoms Abdominal/Gastrointestinal: No Symptoms Genitourinary Symptoms: No Symptoms Musculoskeletal: No Symptoms Skin: No Symptoms Neurological: No Symptoms Psychological: No Symptoms Endocrine: No Symptoms Hematologic/Lymphatic: No Symptoms Immunological/Allergic: No Symptoms <MILLIE KENDRICK - Last Filed: 01/04/25 15:47> Objective Exam General Appearance: no apparent distress Neurologic Exam: alert, oriented x 3, cooperative Skin Exam: normal color Eye Exam: PERRL Ears, Nose, Throat Exam: normal ENT inspection Neck Exam: normal inspection Respiratory Exam: crackles/rales Cardiovascular Exam: regular rate/rhythm, normal heart sounds Gastrointestinal/Abdomen Exam: soft, normal bowel sounds Extremity Exam: swelling (BLE 2+ pitting) Pelvic Exam: deferred Rectal Exam: deferred <MILLIE KENDRICK - Last Filed: 01/04/25 15:47> Objective Data Vital Signs: Vital Signs - 24 hr Temp Pulse Resp BP BP Pulse Ox 01/04/25 05:01 77 22 86/60 95 01/04/25 04:31 79 23 73/52 94 L 01/04/25 04:01 78 25 H 86/55 94 L 01/04/25 04:00 79 01/04/25 03:31 98.1 F 79 18 83/58 97 01/04/25 03:00 83 19 95/68 95 01/04/25 02:31 74 18 75/53 94 L 01/04/25 02:01 75 19 87/65 94 L 01/04/25 01:45 81 22 96/72 96 01/04/25 01:30 81 19 94/73 97 01/04/25 01:16 81 17 88/65 97 01/04/25 01:14 81 22 100 01/04/25 01:01 80 21 92/64 100 01/04/25 00:46 82 18 104/79 99 01/04/25 00:31 82 30 H 112/75 99 01/04/25 00:16 82 32 H 109/73 100 01/04/25 00:02 81 23 108/75 97 01/04/25 00:01 81 01/03/25 23:45 83 23 105/80 98 01/03/25 23:30 81 23 97/77 99 01/03/25 23:16 81 22 107/73 100 01/03/25 23:00 80 22 107/72 99 01/03/25 22:46 80 21 94/69 99 01/03/25 22:30 80 22 102/79 97 01/03/25 22:27 79 22 98 01/03/25 22:15 79 21 96/69 98 01/03/25 22:00 78 16 95/74 98 01/03/25 21:46 78 23 90/60 96 01/03/25 21:31 79 25 H 86/66 98 01/03/25 21:15 78 23 92/68 99 01/03/25 21:08 78 28 H 91/69 98 01/03/25 21:02 82 26 H 99 01/03/25 20:47 83 19 75/50 99 01/03/25 20:31 79 26 H 72/61 100 01/03/25 20:17 78 21 74/58 99 01/03/25 20:06 79 18 92 L 01/03/25 20:04 75 27 H 99 01/03/25 20:00 78 01/03/25 19:30 79 22 82/59 99 01/03/25 19:28 79 27 H 85/62 99 01/03/25 19:24 80 18 99 01/03/25 19:20 80 25 H 99 01/03/25 19:17 80 28 H 99 01/03/25 19:01 80 26 H 98/69 99 01/03/25 18:46 79 26 H 92/70 99 01/03/25 18:37 79 25 H 86/72 98 01/03/25 18:36 79 25 H 98 01/03/25 18:35 78 34 H 99 01/03/25 18:00 78 24 74/51 01/03/25 17:50 78 14 01/03/25 17:40 78 21 01/03/25 17:30 77 21 70/54 01/03/25 17:20 77 28 H 01/03/25 17:10 77 51 H 01/03/25 17:00 77 36 H 01/03/25 16:50 78 29 H 01/03/25 16:45 80/62 02 16:40 79 23 01/03/25 16:39 96.8 F 79 21 76/54 99 01/03/25 16:30 78 28 H 01/03/25 16:20 79 24 01/03/25 16:10 79 23 74/58 03/02/25 16:05 85 76/54 01/03/25 16:00 81 18 01/03/25 15:50 80 22 01/03/25 15:40 80 22 01/03/25 15:30 80 19 01/03/25 15:21 78 19 01/03/25 15:11 73 19 01/03/25 15:00 74 21 01/03/25 14:50 73 20 01/03/25 14:40 74 19 01/03/25 14:30 75 19 01/03/25 14:20 78 17 01/03/25 14:10 81 18 01/03/25 14:00 83 20 01/03/25 13:50 82 17 01/03/25 13:40 83 18 01/03/25 13:30 84 20 01/03/25 13:20 91 H 18 01/03/25 13:10 98 H 19 01/03/25 13:08 102 H 20 92 L 01/03/25 13:00 106 H 19 01/03/25 12:50 87 26 H 01/03/25 12:40 101 H 24 01/03/25 12:30 103 H 17 01/03/25 12:20 99 H 20 01/03/25 12:10 101 H 18 01/03/25 12:00 101 H 20 01/03/25 11:50 103 H 7 L 01/03/25 11:40 105 H 26 H 01/03/25 11:35 98 F 106 H 23 119/79 97 01/03/25 11:30 105 H 17 01/03/25 11:20 108 H 22 01/03/25 11:10 108 H 26 H 01/03/25 11:00 107 H 24 01/03/25 10:50 113 H 31 H 01/03/25 10:40 114 H 01/03/25 10:30 109 H 12 01/03/25 10:20 108 H 22 01/03/25 09:18 108 H 136/94 01/03/25 07:00 97.3 F 104 H 24 142/85 95 01/03/25 06:37 105 H 20 97 Pain Assessment - Last Documented Pain Intensity 0 Intake and Output: Intake & Output 01/01/25 01/02/25 01/03/25 01/04/25 11:59 11:59 11:59 11:59 Intake Total 005 623 7989 1244 Output Total 200 850 300 Balance 100 -170 1700 944 Weight 92 kg Lab Results: Lab Results-Last 24 Hours 01/03/25 01/03/25 01/03/25 Range/Units 05:40 05:52 05:52 WBC 12.3 H (3.98-10.04) x10^3/uL RBC 4.25 (3.93-5.22) x10^6/uL Hgb 11.1 L (11.2-15.7) g/dL Hct 35.6 (34.1-44.9) % MCV 83.8 (79.4-94.8) fL MCH 26.1 (25.6-32.2) pg MCHC 31.2 L (32.2-35.5) g/dL RDW 16.2 H (11.7-14.4) % Plt Count 279 (182-369) x10^3/uL MPV 10.7 (9.4-12.3) fL D-Dimer (0.0-0.50) mg/L Puncture Site pCO2 (35-45) mmHg pO2 (75-100) mmHg Base Excess (-2.0-2.0) O2 Saturation (94-100) g/dF ABG pH (7.35-7.45) ABG HCO3 (22-28) ABG O2 Sat (Measured) (95-100) % Hiro Test A-a Gradient a/A Ratio Hemoglobin Carboxyhemoglobin (0.0-6.9) % THgb Methemoglobin (1.4-1.5) % Temperature C POC O2 Flow Rate % Sodium 136 (135-145) mmol/L Potassium 5.1 (3.5-5.1) mmol/L Chloride 101 (98-107) mmol/L Carbon Dioxide 23 (22-30) mmol/L Anion Gap 17.1 H (5-15) MEQ/L BUN 65 H (7-17) mg/dL Creatinine 1.76 H (0.52-1.04) mg/dL Estimated GFR 30.6 ML/MIN Glucose 229 H (74-106) mg/dL POC Glucometer (74 to 106) mg/dL Lactic Acid 2.0 (0.4-2.0) Calcium 9.6 (8.4-10.2) mg/dL Magnesium (1.6-2.3) mg/dL Total Bilirubin 0.70 (0.2-1.3) mg/dL AST 125 H (14-36) U/L ALT 153 H (0-35) U/L Alkaline Phosphatase 83 (38-126) U/L Serum Total Protein 6.8 (6.3-8.2) g/dL Albumin 4.2 (3.5-5.0) g/dL Procalcitonin (0.030-0.080) ng/mL Urine Color (Yellow) Urine Appearance (Clear) Urine pH (4.6-8.0) Ur Specific [place] (1.005-1.030) Urine Protein (Negative) Urine Glucose (UA) (Negative) mg/dL Urine Ketones (Negative) Urine Blood (Negative) Urine Nitrite (Negative) Urine Bilirubin (Negative) Urine Urobilinogen (0.2) mg/dL Ur Leukocyte Esterase (Negative) U Hyaline Cast (Auto) (0-2) /LPF Urine Microscopic RBC (0-5) /HPF Urine Microscopic WBC (0-5) /HPF Ur Epithelial Cells (None Seen) /HPF Urine Bacteria (None Seen) /HPF Urine Yeast (Budding) (None Seen) /HPF 01/03/25 01/03/25 01/03/25 Range/Units 07:06 11:25 16:09 WBC (3.98-10.04) x10^3/uL RBC (3.93-5.22) x10^6/uL Hgb (11.2-15.7) g/dL Hct (34.1-44.9) % MCV (79.4-94.8) fL MCH (25.6-32.2) pg MCHC (32.2-35.5) g/dL RDW (11.7-14.4) % Plt Count (182-369) x10^3/uL MPV (9.4-12.3) fL D-Dimer (0.0-0.50) mg/L Puncture Site pCO2 (35-45) mmHg pO2 (75-100) mmHg Base Excess (-2.0-2.0) O2 Saturation (94-100) g/dF ABG pH (7.35-7.45) ABG HCO3 (22-28) ABG O2 Sat (Measured) (95-100) % Hiro Test A-a Gradient a/A Ratio Hemoglobin Carboxyhemoglobin (0.0-6.9) % THgb Methemoglobin (1.4-1.5) % Temperature C POC O2 Flow Rate % Sodium (135-145) mmol/L Potassium (3.5-5.1) mmol/L Chloride (98-107) mmol/L Carbon Dioxide (22-30) mmol/L Anion Gap (5-15) MEQ/L BUN (7-17) mg/dL Creatinine (0.52-1.04) mg/dL Estimated GFR ML/MIN Glucose (74-106) mg/dL POC Glucometer 224 H 265 H 258 H (74 to 106) mg/dL Lactic Acid (0.4-2.0) Calcium (8.4-10.2) mg/dL Magnesium (1.6-2.3) mg/dL Total Bilirubin (0.2-1.3) mg/dL AST (14-36) U/L ALT (0-35) U/L Alkaline Phosphatase (38-126) U/L Serum Total Protein (6.3-8.2) g/dL Albumin (3.5-5.0) g/dL Procalcitonin (0.030-0.080) ng/mL Urine Color (Yellow) Urine Appearance (Clear) Urine pH (4.6-8.0) Ur Specific [place] (1.005-1.030) Urine Protein (Negative) Urine Glucose (UA) (Negative) mg/dL Urine Ketones (Negative) Urine Blood (Negative) Urine Nitrite (Negative) Urine Bilirubin (Negative) Urine Urobilinogen (0.2) mg/dL Ur Leukocyte Esterase (Negative) U Hyaline Cast (Auto) (0-2) /LPF Urine Microscopic RBC (0-5) /HPF Urine Microscopic WBC (0-5) /HPF Ur Epithelial Cells (None Seen) /HPF Urine Bacteria (None Seen) /HPF Urine Yeast (Budding) (None Seen) /HPF 01/03/25 01/03/25 01/03/25 Range/Units 16:30 16:30 16:30 WBC (3.98-10.04) x10^3/uL RBC (3.93-5.22) x10^6/uL Hgb (11.2-15.7) g/dL Hct (34.1-44.9) % MCV (79.4-94.8) fL MCH (25.6-32.2) pg MCHC (32.2-35.5) g/dL RDW (11.7-14.4) % Plt Count (182-369) x10^3/uL MPV (9.4-12.3) fL D-Dimer (0.0-0.50) mg/L Puncture Site LEFT RADIAL pCO2 37 (35-45) mmHg pO2 102 H (75-100) mmHg Base Excess -2.8 L (-2.0-2.0) O2 Saturation 96.9 (94-100) g/dF ABG pH 7.38 (7.35-7.45) ABG HCO3 21.9 L (22-28) ABG O2 Sat (Measured) 98.7 (95-100) % Hiro Test YES A-a Gradient 108 a/A Ratio 0.49 Hemoglobin 11.2 Carboxyhemoglobin 1.1 (0.0-6.9) % THgb Methemoglobin 0.8 L (1.4-1.5) % Temperature 37.0 C POC O2 Flow Rate 36 % Sodium (135-145) mmol/L Potassium 5.6 H (3.5-5.1) mmol/L Chloride (98-107) mmol/L Carbon Dioxide (22-30) mmol/L Anion Gap (5-15) MEQ/L BUN (7-17) mg/dL Creatinine (0.52-1.04) mg/dL Estimated GFR ML/MIN Glucose (74-106) mg/dL POC Glucometer (74 to 106) mg/dL Lactic Acid 3.5 H (0.4-2.0) Calcium (8.4-10.2) mg/dL Magnesium (1.6-2.3) mg/dL Total Bilirubin (0.2-1.3) mg/dL AST (14-36) U/L ALT (0-35) U/L Alkaline Phosphatase (38-126) U/L Serum Total Protein (6.3-8.2) g/dL Albumin (3.5-5.0) g/dL Procalcitonin 0.091 H (0.030-0.080) ng/mL Urine Color (Yellow) Urine Appearance (Clear) Urine pH (4.6-8.0) Ur Specific [place] (1.005-1.030) Urine Protein (Negative) Urine Glucose (UA) (Negative) mg/dL Urine Ketones (Negative) Urine Blood (Negative) Urine Nitrite (Negative) Urine Bilirubin (Negative) Urine Urobilinogen (0.2) mg/dL Ur Leukocyte Esterase (Negative) U Hyaline Cast (Auto) (0-2) /LPF Urine Microscopic RBC (0-5) /HPF Urine Microscopic WBC (0-5) /HPF Ur Epithelial Cells (None Seen) /HPF Urine Bacteria (None Seen) /HPF Urine Yeast (Budding) (None Seen) /HPF 01/03/25 01/03/25 01/03/25 Range/Units 16:30 16:35 21:00 WBC (3.98-10.04) x10^3/uL RBC (3.93-5.22) x10^6/uL Hgb (11.2-15.7) g/dL Hct (34.1-44.9) % MCV (79.4-94.8) fL MCH (25.6-32.2) pg MCHC (32.2-35.5) g/dL RDW (11.7-14.4) % Plt Count (182-369) x10^3/uL MPV (9.4-12.3) fL D-Dimer 1.63 H* (0.0-0.50) mg/L Puncture Site pCO2 (35-45) mmHg pO2 (75-100) mmHg Base Excess (-2.0-2.0) O2 Saturation (94-100) g/dF ABG pH (7.35-7.45) ABG HCO3 (22-28) ABG O2 Sat (Measured) (95-100) % Hiro Test A-a Gradient a/A Ratio Hemoglobin Carboxyhemoglobin (0.0-6.9) % THgb Methemoglobin (1.4-1.5) % Temperature C POC O2 Flow Rate % Sodium (135-145) mmol/L Potassium 5.7 H (3.5-5.1) mmol/L Chloride (98-107) mmol/L Carbon Dioxide (22-30) mmol/L Anion Gap (5-15) MEQ/L BUN (7-17) mg/dL Creatinine (0.52-1.04) mg/dL Estimated GFR ML/MIN Glucose (74-106) mg/dL POC Glucometer (74 to 106) mg/dL Lactic Acid (0.4-2.0) Calcium (8.4-10.2) mg/dL Magnesium 2.5 H (1.6-2.3) mg/dL Total Bilirubin (0.2-1.3) mg/dL AST (14-36) U/L ALT (0-35) U/L Alkaline Phosphatase (38-126) U/L Serum Total Protein (6.3-8.2) g/dL Albumin (3.5-5.0) g/dL Procalcitonin (0.030-0.080) ng/mL Urine Color Dark Yellow A (Yellow) Urine Appearance Cloudy A (Clear) Urine pH 5.0 (4.6-8.0) Ur Specific [place] 1.025 (1.005-1.030) Urine Protein 100 A (Negative) Urine Glucose (UA) Negative (Negative) mg/dL Urine Ketones Negative (Negative) Urine Blood Negative (Negative) Urine Nitrite Negative (Negative) Urine Bilirubin Small A (Negative) Urine Urobilinogen 0.2 (0.2) mg/dL Ur Leukocyte Esterase Trace A (Negative) U Hyaline Cast (Auto) 3-5 A (0-2) /LPF Urine Microscopic RBC 3-5 (0-5) /HPF Urine Microscopic WBC 0-2 (0-5) /HPF Ur Epithelial Cells Many A (None Seen) /HPF Urine Bacteria Few A (None Seen) /HPF Urine Yeast (Budding) Few A (None Seen) /HPF 01/03/25 01/04/25 Range/Units 21:41 04:24 WBC 12.8 H (3.98-10.04) x10^3/uL RBC 4.24 (3.93-5.22) x10^6/uL Hgb 10.8 L (11.2-15.7) g/dL Hct 35.3 (34.1-44.9) % MCV 83.3 (79.4-94.8) fL MCH 25.5 L (25.6-32.2) pg MCHC 30.6 L (32.2-35.5) g/dL RDW 16.3 H (11.7-14.4) % Plt Count 227 (182-369) x10^3/uL MPV 10.9 (9.4-12.3) fL D-Dimer (0.0-0.50) mg/L Puncture Site pCO2 (35-45) mmHg pO2 (75-100) mmHg Base Excess (-2.0-2.0) O2 Saturation (94-100) g/dF ABG pH (7.35-7.45) ABG HCO3 (22-28) ABG O2 Sat (Measured) (95-100) % Hiro Test A-a Gradient a/A Ratio Hemoglobin Carboxyhemoglobin (0.0-6.9) % THgb Methemoglobin (1.4-1.5) % Temperature C POC O2 Flow Rate % Sodium (135-145) mmol/L Potassium (3.5-5.1) mmol/L Chloride (98-107) mmol/L Carbon Dioxide (22-30) mmol/L Anion Gap (5-15) MEQ/L BUN (7-17) mg/dL Creatinine (0.52-1.04) mg/dL Estimated GFR ML/MIN Glucose (74-106) mg/dL POC Glucometer 223 H (74 to 106) mg/dL Lactic Acid (0.4-2.0) Calcium (8.4-10.2) mg/dL Magnesium (1.6-2.3) mg/dL Total Bilirubin (0.2-1.3) mg/dL AST (14-36) U/L ALT (0-35) U/L Alkaline Phosphatase (38-126) U/L Serum Total Protein (6.3-8.2) g/dL Albumin (3.5-5.0) g/dL Procalcitonin (0.030-0.080) ng/mL Urine Color (Yellow) Urine Appearance (Clear) Urine pH (4.6-8.0) Ur Specific [place] (1.005-1.030) Urine Protein (Negative) Urine Glucose (UA) (Negative) mg/dL Urine Ketones (Negative) Urine Blood (Negative) Urine Nitrite (Negative) Urine Bilirubin (Negative) Urine Urobilinogen (0.2) mg/dL Ur Leukocyte Esterase (Negative) U Hyaline Cast (Auto) (0-2) /LPF Urine Microscopic RBC (0-5) /HPF Urine Microscopic WBC (0-5) /HPF Ur Epithelial Cells (None Seen) /HPF Urine Bacteria (None Seen) /HPF Urine Yeast (Budding) (None Seen) /HPF Radiology Exams: Radiology Procedures Category Date Time Status CHEST 1 VIEW (PORTABLE) Stat Exams 01/02/25 11:10 Completed HEAD WITHOUT CONTRAST [CT] Stat Exams 01/03/25 18:12 Completed <MILLIE KENDRICK - Last Filed: 01/04/25 15:47> Vital Signs: Vital Signs - 24 hr Temp Pulse Resp BP Pulse Ox 01/04/25 20:08 96 01/04/25 20:01 99.3 F 84 27 H 106/70 94 L 01/04/25 20:00 82 01/04/25 19:00 82 19 99/68 96 01/04/25 18:50 80 22 95 01/04/25 18:31 80 24 95/69 95 01/04/25 18:00 82 21 97/69 87 L 01/04/25 17:31 82 22 97/68 96 01/04/25 17:00 82 19 95/70 97 01/04/25 16:30 97.6 F 79 21 93/64 96 01/04/25 16:26 82 18 85/62 90 L 01/04/25 16:05 78 01/04/25 16:01 78 20 89/62 94 L 01/04/25 15:31 78 19 90/64 95 01/04/25 15:01 79 16 86/64 97 01/04/25 14:31 79 25 H 83/63 98 01/04/25 14:15 82 24 93 L 01/04/25 14:14 81 22 92/66 96 01/04/25 14:13 82 27 H 78 L 01/04/25 14:10 83 24 72 L 01/04/25 14:01 75 L 01/04/25 13:01 95/61 01/04/25 12:51 82 21 92/62 95 01/04/25 12:49 80 22 84/66 85 L 01/04/25 12:48 79 15 96 01/04/25 12:43 79 01/04/25 12:40 80 22 97 01/04/25 12:33 83 16 95 01/04/25 12:00 82 21 91/70 94 L 01/04/25 11:31 97.9 F 79 25 H 98/73 97 01/04/25 11:00 78 18 110/73 96 01/04/25 10:30 79 21 91/72 97 01/04/25 10:01 78 19 103/71 99 01/04/25 09:31 79 12 99/74 97 01/04/25 09:00 79 17 96/72 96 01/04/25 08:32 77 21 94/70 01/04/25 08:30 78 01/04/25 08:01 79 28 H 97/76 01/04/25 07:30 98.0 F 81 25 H 88/71 96 01/04/25 07:23 78 21 94/68 96 01/04/25 07:00 78 26 H 95/70 95 01/04/25 06:31 98.0 F 78 21 86/64 96 01/04/25 06:01 89 25 H 86/65 96 01/04/25 06:00 79 25 H 100 01/04/25 05:31 77 24 82/57 96 01/04/25 05:01 77 22 86/60 95 01/04/25 04:31 79 23 73/52 94 L 01/04/25 04:01 78 25 H 86/55 94 L 01/04/25 04:00 79 01/04/25 03:31 98.1 F 79 18 83/58 97 01/04/25 03:00 83 19 95/68 95 01/04/25 02:31 74 18 75/53 94 L 01/04/25 02:01 75 19 87/65 94 L 01/04/25 01:45 81 22 96/72 96 01/04/25 01:30 81 19 94/73 97 01/04/25 01:16 81 17 88/65 97 01/04/25 01:14 81 22 100 01/04/25 01:01 80 21 92/64 100 01/04/25 00:46 82 18 104/79 99 01/04/25 00:31 82 30 H 112/75 99 01/04/25 00:16 82 32 H 109/73 100 01/04/25 00:02 81 23 108/75 97 01/04/25 00:01 81 01/03/25 23:45 83 23 105/80 98 01/03/25 23:30 81 23 97/77 99 01/03/25 23:16 81 22 107/73 100 01/03/25 23:00 80 22 107/72 99 01/03/25 22:46 80 21 94/69 99 01/03/25 22:30 80 22 102/79 97 01/03/25 22:27 79 22 98 01/03/25 22:15 79 21 96/69 98 01/03/25 22:00 78 16 95/74 98 01/03/25 21:46 78 23 90/60 96 01/03/25 21:31 79 25 H 86/66 98 01/03/25 21:15 78 23 92/68 99 01/03/25 21:08 78 28 H 91/69 98 01/03/25 21:02 82 26 H 99 01/03/25 20:47 83 19 75/50 99 01/03/25 20:31 79 26 H 72/61 100 Pain Assessment - Last Documented Pain Intensity 0 Intake and Output: Intake & Output 01/02/25 01/03/25 01/04/25 01/05/25 11:59 11:59 11:59 11:59 Intake Total 680 1700 2358 240 Output Total 850 425 200 Balance -170 1700 1933 40 Weight 92 kg Lab Results: Lab Results-Last 24 Hours 01/03/25 01/03/25 01/04/25 Range/Units 21:00 21:41 04:24 WBC 12.8 H (3.98-10.04) x10^3/uL RBC 4.24 (3.93-5.22) x10^6/uL Hgb 10.8 L (11.2-15.7) g/dL Hct 35.3 (34.1-44.9) % MCV 83.3 (79.4-94.8) fL MCH 25.5 L (25.6-32.2) pg MCHC 30.6 L (32.2-35.5) g/dL RDW 16.3 H (11.7-14.4) % Plt Count 227 (182-369) x10^3/uL MPV 10.9 (9.4-12.3) fL Sodium (135-145) mmol/L Potassium (3.5-5.1) mmol/L Chloride (98-107) mmol/L Carbon Dioxide (22-30) mmol/L Anion Gap (5-15) MEQ/L BUN (7-17) mg/dL Creatinine (0.52-1.04) mg/dL Estimated GFR ML/MIN Glucose (74-106) mg/dL POC Glucometer 223 H (74 to 106) mg/dL Calcium (8.4-10.2) mg/dL Total Bilirubin (0.2-1.3) mg/dL AST (14-36) U/L ALT (0-35) U/L Alkaline Phosphatase (38-126) U/L Troponin I (0.000-0.033) ng/mL Serum Total Protein (6.3-8.2) g/dL Albumin (3.5-5.0) g/dL Urine Color Dark Yellow A (Yellow) Urine Appearance Cloudy A (Clear) Urine pH 5.0 (4.6-8.0) Ur Specific [place] 1.025 (1.005-1.030) Urine Protein 100 A (Negative) Urine Glucose (UA) Negative (Negative) mg/dL Urine Ketones Negative (Negative) Urine Blood Negative (Negative) Urine Nitrite Negative (Negative) Urine Bilirubin Small A (Negative) Urine Urobilinogen 0.2 (0.2) mg/dL Ur Leukocyte Esterase Trace A (Negative) U Hyaline Cast (Auto) 3-5 A (0-2) /LPF Urine Microscopic RBC 3-5 (0-5) /HPF Urine Microscopic WBC 0-2 (0-5) /HPF Ur Epithelial Cells Many A (None Seen) /HPF Urine Bacteria Few A (None Seen) /HPF Urine Yeast (Budding) Few A (None Seen) /HPF 01/04/25 01/04/25 01/04/25 Range/Units 04:24 07:24 08:23 WBC (3.98-10.04) x10^3/uL RBC (3.93-5.22) x10^6/uL Hgb (11.2-15.7) g/dL Hct (34.1-44.9) % MCV (79.4-94.8) fL MCH (25.6-32.2) pg MCHC (32.2-35.5) g/dL RDW (11.7-14.4) % Plt Count (182-369) x10^3/uL MPV (9.4-12.3) fL Sodium 138 (135-145) mmol/L Potassium 5.4 H (3.5-5.1) mmol/L Chloride 102 (98-107) mmol/L Carbon Dioxide 22 (22-30) mmol/L Anion Gap 19.0 H (5-15) MEQ/L BUN 81 H (7-17) mg/dL Creatinine 2.26 H (0.52-1.04) mg/dL Estimated GFR 22.6 ML/MIN Glucose 188 H (74-106) mg/dL POC Glucometer 237 H (74 to 106) mg/dL Calcium 9.1 (8.4-10.2) mg/dL Total Bilirubin 1.00 (0.2-1.3) mg/dL AST 1834 H (14-36) U/L ALT 1706 H (0-35) U/L Alkaline Phosphatase 67 (38-126) U/L Troponin I 0.120 H* (0.000-0.033) ng/mL Serum Total Protein 6.3 (6.3-8.2) g/dL Albumin 3.9 (3.5-5.0) g/dL Urine Color (Yellow) Urine Appearance (Clear) Urine pH (4.6-8.0) Ur Specific [place] (1.005-1.030) Urine Protein (Negative) Urine Glucose (UA) (Negative) mg/dL Urine Ketones (Negative) Urine Blood (Negative) Urine Nitrite (Negative) Urine Bilirubin (Negative) Urine Urobilinogen (0.2) mg/dL Ur Leukocyte Esterase (Negative) U Hyaline Cast (Auto) (0-2) /LPF Urine Microscopic RBC (0-5) /HPF Urine Microscopic WBC (0-5) /HPF Ur Epithelial Cells (None Seen) /HPF Urine Bacteria (None Seen) /HPF Urine Yeast (Budding) (None Seen) /HPF 01/04/25 01/04/25 01/04/25 Range/Units 11:34 11:44 16:30 WBC (3.98-10.04) x10^3/uL RBC (3.93-5.22) x10^6/uL Hgb (11.2-15.7) g/dL Hct (34.1-44.9) % MCV (79.4-94.8) fL MCH (25.6-32.2) pg MCHC (32.2-35.5) g/dL RDW (11.7-14.4) % Plt Count (182-369) x10^3/uL MPV (9.4-12.3) fL Sodium (135-145) mmol/L Potassium 5.0 (3.5-5.1) mmol/L Chloride (98-107) mmol/L Carbon Dioxide (22-30) mmol/L Anion Gap (5-15) MEQ/L BUN (7-17) mg/dL Creatinine (0.52-1.04) mg/dL Estimated GFR ML/MIN Glucose (74-106) mg/dL POC Glucometer 214 H 189 H (74 to 106) mg/dL Calcium (8.4-10.2) mg/dL Total Bilirubin (0.2-1.3) mg/dL AST (14-36) U/L ALT (0-35) U/L Alkaline Phosphatase (38-126) U/L Troponin I (0.000-0.033) ng/mL Serum Total Protein (6.3-8.2) g/dL Albumin (3.5-5.0) g/dL Urine Color (Yellow) Urine Appearance (Clear) Urine pH (4.6-8.0) Ur Specific [place] (1.005-1.030) Urine Protein (Negative) Urine Glucose (UA) (Negative) mg/dL Urine Ketones (Negative) Urine Blood (Negative) Urine Nitrite (Negative) Urine Bilirubin (Negative) Urine Urobilinogen (0.2) mg/dL Ur Leukocyte Esterase (Negative) U Hyaline Cast (Auto) (0-2) /LPF Urine Microscopic RBC (0-5) /HPF Urine Microscopic WBC (0-5) /HPF Ur Epithelial Cells (None Seen) /HPF Urine Bacteria (None Seen) /HPF Urine Yeast (Budding) (None Seen) /HPF Radiology Exams: Radiology Procedures Category Date Time Status CHEST 1 VIEW (PORTABLE) Stat Exams 01/04/25 08:05 Completed ECHO W/2D AND DOPPLER [US] Stat Exams 01/04/25 08:00 Taken HEAD WITHOUT CONTRAST [CT] Stat Exams 01/03/25 18:12 Completed PULMONARY PERF VENTILATION [NUCMED] Stat Exams 01/04/25 10:27 Completed Multi-Disciplinary Progress Notes: Multi-Disciplinary Progress Notes 01/04/25 14:39 Case Management Note by Janeth Francis DC PLANNING HELD AT THIS TIME- MILLIE KENDRICK ANTICIPATING TRANSFER TO HIGHER LEVEL OF CARE Initialized on 01/04/25 14:39 - END OF NOTE <DAI FRY - Last Filed: 01/04/25 20:24> Assessment/Plan (1) Acute exacerbation of chronic obstructive pulmonary disease (COPD) Current Visit: Yes Status: Acute Assessment & Plan: - with no change in appearance of chest x-ray to explain worsening. However, this is patient's sixth admission with a COPD exacerbation in the last 3 months. Concerning that patient might be approaching end-stage lung disease. However, she is not having any CO2 retention noted on her ABG. She was initially placed on BiPAP because of concern for her A-fib RVR, but currently she is rate controlled and stable on 5 L oxygen. Continue Solu-Medrol 40 mg IV Q8 DuoNebs changed to Xoponex d/t A-fib/INH -Ceftriaxone discontinued - Sputum culture/blood cultures pending - Repeat CXR 01/02/25 reviewed and demonstrates redemonstration of increased bronchovascular shadowing with reticulations seen in the lung morley bilaterally. Loss of the normal sharpness of both costophrenic angles could be due to mild residual pleural effusions. No significant interval changes. Repeat CXR reviewed from 01/04/25 demonstrating cardiomegaly, pulmonary edema, and small bibasilar effusions -VQ scan reviewed demonstrating low probability of PE and pleural effusions - At BL 3L NC - CBC reviewed - Consider OP sleep study with O2 as she has not had one done in 8 years and does not have a CPAP at home. - Consider Hospice for repeated admissions every month and 3 withing the last week for COPD exacerbation to keep pt from readmitting again. _ Code(s): J44.1 - CHRONIC OBSTRUCTIVE PULMONARY DISEASE W (ACUTE) EXACERBATION (2) ANURADHA (acute kidney injury) Current Visit: Yes Status: Acute Assessment & Plan: - Creat reviewed at 2.26 baseline 0.97-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
--- NOTE | 2025-01-04 08:51 | XRAY ---
Indication: Dyspnea. Comparison: January 02, 2025 Portable chest unchanged again demonstrating cardiomegaly, pulmonary edema, and small bibasilar effusions. Bony thorax intact again with osteopenia, degenerative changes, and left pacemaker. No new cardiopulmonary abnormalities.
--- NOTE | 2025-01-04 14:29 | XRAY ---
Indication: Dyspnea. Elevated d-dimer. CHF on same day chest radiograph. Negative CT PE exam November 21, 2024. Comparison: None Patient received 5.6 mCi technetium 99 MAA for the perfusion portion of the exam. Patient inhaled 36.0 mCi of aerosolized technetium 99 DTPA for the ventilation portion of the exam. Multiple planar images obtained. Perfusion images demonstrates blunting both lung bases. No other segmental/subsegmental effusion defects. Ventilation images demonstrates diffuse heterogeneous radiopharmacy activity. Matching blunting both lung bases. Impression: 1. Matched blunting both lung bases on ventilation/perfusion favoring pleural effusions. 2. Diffuse bilateral heterogeneous appearing ventilation images as seen with chronic obstructive disease. 3. No mismatch ventilation/perfusion perfusion defects. 4. PIOPED criteria for pulmonary embolus is low probability.
[2025-01-04] MEDS ORDERED: Sodium Chloride 0.9% 1000 ML 1,000 ML ONE (18:20)
[2025-01-04] MEDS: Sodium Chloride 0.9% 1000 ML 1,000 ML IV SCH (18:22)
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
[2025-01-04 20:23] VITALS: TEMP 97.1
[2025-01-05 01:23] VITALS: PULSE 83
[2025-01-05 02:03] VITALS: RESP 21
[2025-01-05 04:07] VITALS: BP 116/91; O2SAT 95
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
[2025-01-05 08:16] LABS: HBsAg Screen Negative (Negative); HCV Ab Non Reactive (Non Reactive); Hep B Core Ab, IgM Negative (Negative)
[2025-01-05 09:05] LABS: Hep A Ab, IgM Negative (Negative)
[2025-01-05] MEDS ORDERED: solu-MEDROL 40 MG, Sterile H2O 10 ml 1 ML IV SCH ×2 (10:00)
--- NOTE | 2025-01-06 12:02 | CONS ---
REASON FOR CONSULTATION: 1) Evaluation of creatinine of 2.26 mg percent. 2) I thank Jovanna for kind referral. HISTORY: The patient is a 69-year-old lady who has underlying history of severe COPD. The patient has been in the hospital for the last week. Baseline creatinine had been around 1.3 to 1.6 mg percent. The patient has followed with Dr. Robbins in the past. Her EF has been about 20% recently. The patient was started on COPD treatment. Her blood sugar had been high. The patient was also given intravenous Lasix. She became hypotensive in the last 24 hours, needed pressor support. Creatinine went up to 2.26 mg percent. Renal consultation was called. She is at baseline oxygen at this time. Breathing is at baseline according to her. Leg swelling is stable. No cough. No orthopnea at this time. Urine output has been poor. The patient was on Entresto, spironolactone, which has been put on hold. PAST MEDICAL HISTORY: 1) Hypertension for several decades. 2) CKD stage 3b. 3) Dyslipidemia. 4) Chronic heavy nicotine addition for several decades. 5) COPD. 6) Severe left ventricular systolic dysfunction with EF of 20%. 7) Chronic hypoxemic respiratory failure. 8) DJD. 9) Sleep apnea. PAST SURGICAL HISTORY: 1) Right knee replacement. 2) Hysterectomy. 3) Cholecystectomy 4) Appendectomy. 5) AICD placement. HOME MEDICATIONS: In-hospital medications were reviewed which initially included Entresto, spironolactone, amlodipine, Lasix. The patient is on steroids. Lasix is on hold. All medications were reviewed. Outpatient medications were reviewed. FAMILY HISTORY: Negative for any hereditary renal disease. SOCIAL HISTORY: Every day smoker. No alcohol abuse. No drug abuse. REVIEW OF SYSTEMS: No chest pain. Shortness of breath at baseline. Appetite has been poor. She was not on any fluids. No leg swelling. Geronimo catheter in place. No fever. No chills. No fall, trauma, focal weakness. All systems were reviewed in detail, pertinent mentioned here and in History of Present Illness, rest were negative. LAB DATA AND TESTS: Labs were reviewed. Bicarb is 22, sodium 138, potassium level 5.4, glucose 188. PHYSICAL EXAMINATION: VITAL SIGNS: Reviewed. HEENT: Normocephalic, atraumatic. Slightly pale conjunctivae. NECK: Supple. CHEST: Bilateral occasional rales. No wheezing. No respiratory distress. CARDIOVASCULAR: S1, S2 normal. ABDOMEN: Soft, nontender. No organomegaly. EXTREMITIES: No cyanosis, clubbing. Trace edema. SKIN: No rash. Skin turgor is poor. MUSCULOSKELETAL: No acute joint swelling. NEUROLOGIC: Alert, awake, oriented x3. ASSESSMENT: 1) ANURADHA on CKD stage 3b most likely because of overdiuresis. BUN is disproportionally high because of steroids. I would start cautious hydration. Underlying recent hypotension could have been further contributing. We will hold Lasix, spironolactone, Entresto, amlodipine. 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 2) Congestive heart failure, systolic, chronic. Shortness of breath is more COPD exacerbation related. I doubt any major acute decompensation of CHF but consider dobutamine once she is adequately hydrated. 3) COPD exacerbation improving. Reduce steroids to once a day. 4) Hyperkalemia most likely because of ANURADHA and Entresto use along with spironolactone. Offending medications have been discontinued. 5) Hyperglycemia. Steroids have been decreased. 6) Others. Possibility of renal replacement therapy was discussed with patient and family. They are undecided. If renal function continues to get worse and urine output does not improved, consider transfer to [facility]. Will also reanchor Geronimo catheter. Closely follow the patient.
== END 2025-01-05 04:00 | disposition short-term general hospital (02) | DRG 191 ==
LOC: ED 16:22 → MED SURG 01-01 00:05 → OBSVTOIN 01-02 11:11 → ICU 01-03 18:11 → UNDODISIN 01-05 04:00
PROVIDERS: ADMIT Internal Medicine; ATTEND Internal Medicine
DX: J44.1 Chronic obstructive pulmonary disease with (acute) exacerbation (principal); E87.20 Acidosis, unspecified; N17.9 Acute kidney failure, unspecified; J90 Pleural effusion, not elsewhere classified; I13.0 Hypertensive heart and chronic kidney disease with heart failure and stage 1 through stage 4 chronic kidney disease, or unspecified chronic kidney disease; T20.00XA Burn of unspecified degree of head, face, and neck, unspecified site, initial encounter; R74.01 Elevation of levels of liver transaminase levels; I25.10 Atherosclerotic heart disease of native coronary artery without angina pectoris; F17.200 Nicotine dependence, unspecified, uncomplicated; I48.91 Unspecified atrial fibrillation; E11.22 Type 2 diabetes mellitus with diabetic chronic kidney disease; N18.30 Chronic kidney disease, stage 3 unspecified; I50.9 Heart failure, unspecified; E78.5 Hyperlipidemia, unspecified; Z79.01 Long term (current) use of anticoagulants; Z79.899 Other long term (current) drug therapy; Z99.81 Dependence on supplemental oxygen
CPT/HCPCS: 0241U; 36415; 36600; 70450; 71045; 78582; 80048; 80053; 80074; 81001; 82375; 82803; 82947; 83036; 83605; 83735; 83880; 84132; 84145; 84484; 85025; 85027; 85379; 87040; 87070; 87086; 93005; 93041; 93268; 93306; 94002; 94003; 94640; 94760; 96374; 99285; A9540; A9567; G0378; Q3014; 99284; J0153; J0456; J0696; J1817; J2405; J2919; J7609; A9270-GY

== ENCOUNTER 2025-03-15 18:40 | Observation (INO) | payer MEDICARE ==
[2025-03-15] MEDS ORDERED: DUONEB 0.5-3 MG/3 ml Neb IH ONE ×2 (19:03→19:55)
[2025-03-15] MEDS ORDERED: PROVENTIL Solution 2.5 MG/0.5 ML IH ONE (19:55)
[2025-03-15] MEDS: DUONEB 0.5-3 MG/3 ml Neb IH ONE (19:56)
--- NOTE | 2025-03-15 19:59 | ERPHSYRPT ---
- History of Present Illness Source: patient Exam Limitations: no limitations Patient Subjective Stated Complaint: patient states "SOB that started yesterday, I felt like my nose was clogged up at first, but I kept feeling worse" Triage Nursing Assessment: patient alert and oriented, brought to ER by family member in wheelchair, patient has increased respirations of 33 upon arrival, wears 3 L nasal cannula at home, placed on 4 L upon arrival Physician History: Patient has COPD. She has been having some increasing dyspnea over the past 2 or 3 days. She has not had a fever or chills. She has a history of COPD and she has had frequent exacerbations. She did a nebulizer at home today and it did not help. She then decided to come in. She does not have any chest pain. She has no fever chills nausea vomiting or other systemic symptoms. Exertion makes her symptoms worse rest makes it better. Her cough is nonproductive. Allergies/Adverse Reactions: No Known Drug Allergies Allergy (Verified 03/15/25 19:00) Home Medications: Albuterol 8 gm Mdi Hfa [Ventolin Hfa MDI] 2 puffs IH Q4H PRN PRN 08/02/15 [History] Atorvastatin Calcium [Lipitor] 80 mg PO HS 12/06/18 [History] Tramadol HCl 50 mg [Ultram 50 mg] 50 mg PO Q6HPRN PRN 12/07/21 [History] Ranolazine 500 MG [Ranexa 500 MG] 1,000 mg PO BID 06/04/23 [History] Fluticasone/Umeclidin/Vilanter [Trelegy Ellipta 200-62.5-25] 1 each IH DAILY 09/14/23 [History] Famotidine 20 mg PO BID 05/22/24 [History] Albuterol/Ipratropium 3ml Neb* [DUONEB 0.5-3 MG/3 ml Neb] 3 ml IH QID 10/02/24 [History] PANTOPRAZOLE 40 mg Tablet [Protonix 40MG Tablet] 40 mg PO QAM 10/13/24 [History] Ipratropium [place] 0.5 mg [Atrovent 0.5MG NEBULE] 0.5 each IH UD 12/16/24 [History] Hx Tetanus, Diphtheria Vaccination/Date Given: Yes Hx Influenza Vaccination/Date Given: Yes Hx Pneumococcal Vaccination/Date Given: Yes Immunizations Up to Date: Yes Travel Risk - International Travel Have you traveled outside of the country in past 3 weeks: No - Emerging Infectious Disease Are you exhibiting symptoms associated with any current EIDs: Yes Symptoms: Shortness of Breath Comment: sob started yesterday morning 03/14/25 - Review of Systems Constitutional: No Symptoms Eyes: No Symptoms Ears, Nose, & Throat: No Symptoms Respiratory: Dyspnea Cardiac: No Symptoms Abdominal/Gastrointestinal: No Symptoms Musculoskeletal: No Symptoms Skin: No Symptoms All Other Systems: Reviewed and Negative - Past Medical History Pertinent Past Medical History: Yes Neurological History: No Pertinent History ENT History: No Pertinent History Cardiac History: High Cholesterol, Hypertension, Myocardial Infarction (CA) Respiratory History: Asthma, COPD Endocrine Medical History: No Pertinent History Musculoskeletal History: No Pertinent History GI Medical History: No Pertinent History History: No Pertinent History Psycho-Social History: No Pertinent History Female Reproductive Disorders: No Pertinent History 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 Procurement Intern: LAZARUS Whaley - Past Surgical History Past Surgical History: Yes Neuro Surgical History: No Pertinent History Cardiac: Internal Defibrillator Gastrointestinal: Cholecystectomy Genitourinary: No Pertinent History Musculoskeletal: Joint Replacement Female Surgical History: Hysterectomy Significant Family History: no pertinent family hx - Social History Smoking Status: Former smoker Exposure to second hand smoke: Yes Drug Use: none - Social Determinants of Health Will the patient participate in the screening: Yes Do you worry about a steady place to live?: No Do you have any problems with any of the following?: No known problems In the past 12 months,have you had to go without utilities?: No Transportation Issues: Yes Has anyone in your support network made you feel unsafe?: No Have you or anyone in your house had to go w/o enough food: No - Nursing Vital Signs Nursing Vital Signs: Initial Vital Signs Temperature 96.7 F 03/15/25 18:41 Pulse Rate 128 H 03/15/25 18:41 Respiratory Rate 22 03/15/25 18:41 Blood Pressure 162/131 03/15/25 18:41 O2 Sat by Pulse Oximetry 94 L 03/15/25 18:41 Pain Scale Pain Intensity 0 - Physical Exam General Appearance: no apparent distress Eye Exam: PERRL/EOMI Respiratory Exam: respiratory distress, diminished breath sounds, prolonged expirations, wheezing, other (Crackles bilaterally midway up the lungs) Cardiovascular/Chest Exam: normal heart sounds, tachycardia Abdominal/Gastrointestinal Exam: soft, normal bowel sounds Neurologic Exam: alert, oriented x 3 Skin Exam: normal color SpO2 Interpretation: normal SpO2: 92 - Course EKG Interpreted by Me: RATE, Sinus Tach, Left [place] Deviation, NORMAL QRS, Non- specific ST Changes Rhythm Strip: Rate Ordered Tests: Active Orders 24 hr Category Date Time Status EKG-ER Only STAT Care 03/15/25 20:09 Active CHEST 1 VIEW (PORTABLE) Stat Exams 03/15/25 20:09 Taken BNPII [NT PRO BNPII] Stat Lab 03/15/25 19:40 Completed CBC W DIFF Stat Lab 03/15/25 19:40 Completed CMP Stat Lab 03/15/25 19:40 Completed TROPONIN Q4H Lab 03/15/25 19:40 Completed TROPONIN Q4H Lab 03/16/25 00:15 Ordered TROPONIN Q4H Lab 03/16/25 04:15 Ordered VENOUS BLOOD GAS Stat Lab 03/15/25 20:30 Completed Respiratory Therapy Assessment DAILY RT 03/15/25 19:55 Active Medication Summary Discontinued Medications Generic Name Dose Route Start Last Admin Trade Name Freq PRN Reason Stop Dose Admin Albuterol Sulfate Confirm 03/15/25 21:01 Albuterol Sulfate 2.5 Mg/3 Ml Neb Administered 03/15/25 21:02 Dose 2.5 mg IH .STK-MED ONE Albuterol Sulfate 2.5 mg 03/15/25 21:06 03/15/25 21:07 Albuterol Sulfate 2.5 Mg/3 Ml Neb IH 03/15/25 21:07 2.5 mg STAT ONE Administration Albuterol Sulfate Confirm 03/15/25 22:08 Albuterol Sulfate 2.5 Mg/3 Ml Neb Administered 03/15/25 22:09 Dose 2.5 mg IH .STK-MED ONE Albuterol Sulfate 2.5 mg 03/15/25 22:32 03/15/25 22:33 Albuterol Sulfate 2.5 Mg/3 Ml Neb IH 03/15/25 22:33 2.5 mg STAT ONE Administration Albuterol Sulfate Confirm 03/15/25 23:10 Albuterol Sulfate 2.5 Mg/3 Ml Neb Administered 03/15/25 23:11 Dose 2.5 mg IH .STK-MED ONE Albuterol Sulfate 2.5 mg 03/15/25 23:29 03/15/25 23:31 Albuterol Sulfate 2.5 Mg/3 Ml Neb IH 03/15/25 23:30 2.5 mg STAT ONE Administration Albuterol/Ipratropium Confirm 03/15/25 19:03 Ipratropium/Albuterol Sulfate 3 Ml Ampul.Neb Administered 03/15/25 19:04 Dose 3 ml IH .STK-MED ONE Albuterol/Ipratropium 3 ml 03/15/25 19:55 03/15/25 19:56 Ipratropium/Albuterol Sulfate 3 Ml Ampul.Neb IH 03/15/25 19:56 3 ml STAT ONE Administration Methylprednisolone Sodium 0 mg 03/15/25 19:55 03/15/25 20:26 Succinate 125 mg/ Sterile IV 03/15/25 19:56 125 mg Water 2 ml STAT ONE Administration Furosemide 40 mg 03/15/25 22:55 03/15/25 23:11 Furosemide 40 Mg/4 Ml Vial IV 03/15/25 22:56 40 mg STAT ONE Administration Furosemide Confirm 03/15/25 23:03 Furosemide 40 Mg/4 Ml Vial Administered 03/15/25 23:04 Dose 40 mg .ROUTE .STK-MED ONE Methylprednisolone Sodium Succinate Confirm 03/15/25 20:25 Methylprednis Sod Succ 125 Mg/2 Ml Vial Administered 03/15/25 20:26 Dose 125 mg .ROUTE .STK-MED ONE Sterile Water Confirm 03/15/25 20:25 Water For Injection,Sterile 10 Ml Vial Administered 03/15/25 20:26 Dose 10 ml IJ .STK-MED ONE Lab/Rad Data: Laboratory Result Diagrams 03/15/25 19:40 03/15/25 19:40 Laboratory Results 03/15/25 03/15/25 03/15/25 Range/Units 20:30 19:40 19:40 WBC (3.98-10.04) x10^3/uL RBC (3.93-5.22) x10^6/uL Hgb (11.2-15.7) g/dL Hct (34.1-44.9) % MCV (79.4-94.8) fL MCH (25.6-32.2) pg MCHC (32.2-35.5) g/dL RDW (11.7-14.4) % Plt Count (182-369) x10^3/uL MPV (9.4-12.3) fL Gran % (34.0-71.1) % Immature Gran % (Auto) (0.001-0.429) % Nucleat RBC Rel Count (0.00-0.2) % Eos # (Auto) (0.04-0.36) x10^3/uL Immature Gran # (Auto) (0.001-0.031) x10^3u/L Absolute Lymphs (auto) (1.18-3.74) x10^3/uL Absolute Monos (auto) (0.24-0.86) x10^3/uL Absolute Nucleated RBC (0.00-0.012) x10^3u/L Lymphocytes % (19.3-51.7) % Monocytes % (4.7-12.5) % Eosinophils % (0.7-5.8) % Basophils % (0.1-1.2) % Absolute Granulocytes (1.56-6.13) x10^3/uL Basophils # (0.01-0.08) x10^3/uL pO2/FiO2 Ratio 21.0 % VBG pH 7.54 H (7.32-7.42) VBG pCO2 at Pat Temp 37 L (42-55) mm/Hg VBG pO2 at Pat Temp 114 H (25-40) mm/Hg VBG HCO3 31.6 H* (22-28) meq/L VBG O2 Sat (Sim) 99.0 (95-100) VBG Base Excess 8.5 H (-2.0-2.0) VBG Hemoglobin 11.2 VBG Carboxyhemoglobin 11.3 H* (0.0-6.9) % T HGB POC Potassium 5.1 (3.5-5.1) Sodium 136 (135-145) mmol/L Potassium 4.1 (3.5-5.1) mmol/L Chloride 99 (98-107) mmol/L Carbon Dioxide 28 (22-30) mmol/L Anion Gap 13.2 (5-15) MEQ/L BUN 12 (7-17) mg/dL Creatinine 0.86 (0.52-1.04) mg/dL Estimated GFR 71.7 ML/MIN Glucose 142 H (74-106) mg/dL Calcium 9.5 (8.4-10.2) mg/dL Total Bilirubin 0.90 (0.2-1.3) mg/dL AST 27 (14-36) U/L ALT 13 (0-35) U/L Alkaline Phosphatase 91 (38-126) U/L Troponin I 0.039 H* (0.000-0.033) ng/mL NT-Pro-B Natriuret Pep 47209 (<300) pg/mL Serum Total Protein 7.0 (6.3-8.2) g/dL Albumin 4.0 (3.5-5.0) g/dL 03/15/25 Range/Units 19:40 WBC 9.3 (3.98-10.04) x10^3/uL RBC 4.11 (3.93-5.22) x10^6/uL Hgb 10.4 L (11.2-15.7) g/dL Hct 33.7 L (34.1-44.9) % MCV 82.0 (79.4-94.8) fL MCH 25.3 L (25.6-32.2) pg MCHC 30.9 L (32.2-35.5) g/dL RDW 17.8 H (11.7-14.4) % Plt Count 294 (182-369) x10^3/uL MPV 10.4 (9.4-12.3) fL Gran % 72.5 H (34.0-71.1) % Immature Gran % (Auto) 0.4 (0.001-0.429) % Nucleat RBC Rel Count 0.0 (0.00-0.2) % Eos # (Auto) 0.02 L (0.04-0.36) x10^3/uL Immature Gran # (Auto) 0.04 H (0.001-0.031) x10^3u/L Absolute Lymphs (auto) 1.70 (1.18-3.74) x10^3/uL Absolute Monos (auto) 0.78 (0.24-0.86) x10^3/uL Absolute Nucleated RBC 0.00 (0.00-0.012) x10^3u/L Lymphocytes % 18.2 L (19.3-51.7) % Monocytes % 8.4 (4.7-12.5) % Eosinophils % 0.2 L (0.7-5.8) % Basophils % 0.3 (0.1-1.2) % Absolute Granulocytes 6.77 H (1.56-6.13) x10^3/uL Basophils # 0.03 (0.01-0.08) x10^3/uL pO2/FiO2 Ratio % VBG pH (7.32-7.42) VBG pCO2 at Pat Temp (42-55) mm/Hg VBG pO2 at Pat Temp (25-40) mm/Hg VBG HCO3 (22-28) meq/L VBG O2 Sat (Sim) (95-100) VBG Base Excess (-2.0-2.0) VBG Hemoglobin VBG Carboxyhemoglobin (0.0-6.9) % T HGB POC Potassium (3.5-5.1) Sodium (135-145) mmol/L Potassium (3.5-5.1) mmol/L Chloride (98-107) mmol/L Carbon Dioxide (22-30) mmol/L Anion Gap (5-15) MEQ/L BUN (7-17) mg/dL Creatinine (0.52-1.04) mg/dL Estimated GFR ML/MIN Glucose (74-106) mg/dL Calcium (8.4-10.2) mg/dL Total Bilirubin (0.2-1.3) mg/dL AST (14-36) U/L ALT (0-35) U/L Alkaline Phosphatase (38-126) U/L Troponin I (0.000-0.033) ng/mL NT-Pro-B Natriuret Pep (<300) pg/mL Serum Total Protein (6.3-8.2) g/dL Albumin (3.5-5.0) g/dL - Progress Progress: improved Air Movement: fair Progress Note: Patient was stable throughout stay. On the differential was acute coronary syndrome, CHF, pneumonia, COPD exacerbation. Patient's troponin was a little bit on the high normal. I think this due to left heart strain. She was in CHF. An x-ray was done as interpreted by me. There was findings of CHF bilaterally. EKG was done it did not show any acute ST or T changes. The rest of her laboratory exam was essentially normal. She was wheezing so we gave her some nebulized albuterol. That helped her somewhat. It appears that she is probably just mainly in CHF which I gave her IV Lasix.She did improve minimally. She was still requiring oxygen at 4 L and that is what she is on at home. I went ahead and called the hospitalist Dr. Schmitt. He agreed to accept the patient. 03/15/25 23:46 Blood Culture(s) Obtained: No Antibiotics given: No Discussed with : Lacy Will see patient in: hospital (observation) Medical Desision Making - Independent Historian Additional History obtained from: Spouse - Discussion of managment Care discussed with:: hospitalist Reviewed:: Test results Agreed on:: Treatment plan, decision to admit Will see patient: in hospital - Social Determinants of Health Pt's dx & treatment plan are significantly limited by SDOH: limited education Limited access to: transportation - Diagnostic Testing Diagnostic test were ordered, analyzed, and reviewed by me: Yes Radiological Interpretation: Interpreted by me - Risk of complications The pt has a mod risk of morbidity or mortality based on: Need for prescription drug management - Departure Departure Disposition: In-patient Admission Clinical Impression: Congestive heart failure Condition: Stable Critical Care Time: No Referrals: GIO ORTIZ DO [Primary Care Provider, [facility]] - Follow up/PCP as directed
[2025-03-15 20:24] LABS: Absolute Neutrophil Ct (ANC) 6.77 x10^3/uL (1.56-6.13); BASOPHIL % 0.3 % (0.1-1.2); Basophil (Absolute #) 0.03 x10^3/uL (0.01-0.08); Eosinophil % 0.2 % (0.7-5.8); Eosinophil (Absolute #) 0.02 x10^3/uL (0.04-0.36); Hematocrit 33.7 % (34.1-44.9); Hemoglobin 10.4 g/dL (11.2-15.7); IMMATURE GRAN # 0.04 x10^3u/L (0.001-0.031); IMMATURE GRAN % 0.4 % (0.001-0.429); Lymphocytes % 18.2 % (19.3-51.7); Mean Corpuscular Hemoglobin 25.3 pg (25.6-32.2); Mean Corpuscular Hgb Concent. 30.9 g/dL (32.2-35.5); Mean Platelet Volume 10.4 fL (9.4-12.3); Monocyte (Absolute #) 0.78 x10^3/uL (0.24-0.86); Monocytes % 8.4 % (4.7-12.5); Neutrophil % 72.5 % (34.0-71.1); Platelet Count 294 x10^3/uL (182-369); Red Blood Count 4.11 x10^6/uL (3.93-5.22); Red Cell Distribution Width 17.8 % (11.7-14.4); White Blood Count 9.3 x10^3/uL (3.98-10.04)
[2025-03-15] MEDS ORDERED: solu-MEDROL ONE (20:25)
[2025-03-15] MEDS ORDERED: Sterile H2O 10 ml IJ ONE (20:25)
[2025-03-15] MEDS: solu-MEDROL 125 MG, Sterile H2O 10 ml 2 ML IV ONE (20:26)
[2025-03-15 20:33] LABS: ANION GAP 13.2 MEQ/L (5-15); BILIRUBIN,TOTAL 0.9 mg/dL (0.2-1.3); Calcium 9.5 mg/dL (8.4-10.2); Creatinine 1 0.86 mg/dL (0.52-1.04); EST GLOMERULAR FILTRATION RATE 71.7 ML/MIN; Potassium 4.1 mmol/L (3.5-5.1)
[2025-03-15 20:39] LABS: VBG BASE EXCESS 8.5 (-2.0-2.0); VBG HCO3- 31.6 meq/L (22-28); VBG HEMOGLOBIN 11.2; VBG POTASSIUM 5.1 (3.5-5.1); VBG pH 7.54 (7.32-7.42)
[2025-03-15 20:40] LABS: VBG CARBOXYHEMOGLOBIN 11.3 % T HGB (0.0-6.9)
[2025-03-15] MEDS ORDERED: PROVENTIL 2.5 MG/3 ML NEB IH ONE ×3 (21:01→23:10)
[2025-03-15] MEDS: PROVENTIL 2.5 MG/3 ML NEB IH ONE ×3 (21:07→23:31)
[2025-03-15] MEDS ORDERED: Lasix 40 MG/4 ML ONE (23:03)
[2025-03-15] MEDS: Lasix 40 MG/4 ML IV ONE (23:11)
[2025-03-16] MEDS ORDERED: ULTRAM 50 MG PO PRN (03:03)
[2025-03-16] MEDS ORDERED: DUONEB 0.5-3 MG/3 ml Neb IH PRN (03:06)
[2025-03-16] MEDS ORDERED: TYLENOL 325 MG PO PRN (03:06)
--- NOTE | 2025-03-16 03:31 | PCM.HP ---
History of Present Illness - Chief Complaint Chief Complaint: shortness of breath Date: 03/16/25 History of Present Illness: 70-year-old with a history of COPD on 4 L oxygen at home, CAD, HFrEF, and A-fib, who presents with dyspnea. She complains of a few days of progressive dyspnea, not relieved by her nebulizer or her typical prednisone. Denies any associated cough, fever, or chest pain. Denies any leg edema, but has had orthopnea, PND, and early satiety. Patient is on Lasix 20 mg daily at home, and says that she has been compliant with her medications without any missed doses. - Review of Systems All Other Systems: Reviewed and Negative Medications & Allergies Home Medications: Home Medication List Albuterol 8 gm Mdi Hfa [Ventolin Hfa MDI] 2 puffs IH Q4H PRN PRN 08/02/15 [History Confirmed 03/16/25] Tramadol HCl 50 mg [Ultram 50 mg] 50 mg PO Q6HPRN PRN 12/07/21 [History Confirmed 03/16/25] Ranolazine 500 MG [Ranexa 500 MG] 1,000 mg PO BID 06/04/23 [History Confirmed 03/16/25] Aspirin 81 gm Chew [Baby Aspirin 81 mg Chew] 81 mg PO DAILY #0 06/10/23 [Rx Confirmed 03/16/25] Fluticasone/Umeclidin/Vilanter [Trelegy Ellipta 200-62.5-25] 1 each IH DAILY 09/14/23 [History Confirmed 03/16/25] Famotidine 20 mg PO BID 05/22/24 [History Confirmed 03/16/25] Albuterol/Ipratropium 3ml Neb* [DUONEB 0.5-3 MG/3 ml Neb] 3 ml IH QID 10/02/24 [History Confirmed 03/16/25] Amlodipine Besylate [Norvasc] 2.5 mg PO DAILY 03/16/25 [History Confirmed 03/16/25] Atorvastatin Calcium 40 mg PO HS 03/16/25 [History Confirmed 03/16/25] Dapagliflozin Propanediol [Farxiga] 10 mg PO DAILY 03/16/25 [History Confirmed 03/16/25] Furosemide 20 mg [Lasix 20 mg] 20 mg PO DAILY 03/16/25 [History Confirmed 03/16/25] Isosorbide Mononitrate 30 mg [Imdur 30 MG] 30 mg PO DAILY 03/16/25 [History Confirmed 03/16/25] Metoprolol Tartrate 50 mg [Lopressor 50 MG] 50 mg PO BID 03/16/25 [History Confirmed 03/16/25] Prednisone 10 mg [Deltasone 10 mg] 10 mg PO DAILY 03/16/25 [History Confirmed 03/16/25] Sacubitril/Valsartan [Entresto 97 mg-103 mg Tablet] 1 tab PO BID 03/16/25 [History Confirmed 03/16/25] Allergies/Adverse Reactions: Allergies Allergy/AdvReac Type Severity Reaction Status Date / Time No Known Drug Allergies Allergy Verified 03/15/25 19:00 - Past Medical History Past Medical History: Yes Neurological History: No Pertinent History ENT History: No Pertinent History Cardiac History: High Cholesterol, Hypertension, Myocardial Infarction ([place]) Respiratory History: Asthma, COPD Endocrine Medical History: No Pertinent History Musculoskelatal History: No Pertinent History GI Medical History: No Pertinent History History: No Pertinent History Pyscho-Social History: No Pertinent History Reproductive Disorders: No Pertinent History Comment: accounts administrator: Dr. Forrest. Felt Cementer: LAZARUS Whaley. Nephrology: Jaleel Robbins - Past Surgical History Past Surgical History: Yes Neuro Surgical History: No Pertinent History Cardiac History: Internal Defibrillator Respiratory Surgery: No Pertinent History GI Surgical History: Cholecystectomy Genitourinary Surgical Hx: No Pertinent History Musculskeletal Surgical Hx: Joint Replacement Female Surgical History: Hysterectomy Other Surgical History: right knee replacement, screw in pelvis, misha in left leg. skin cancer removed from right eye lid Significant Family History: no pertinent family hx - Social History Smoking Status: Former smoker (quit 3 months ago) How long have you smoked: 50 years Exposure to second hand smoke: No Alcohol: None Drug Use: none - Social Determinants of Health Will the patient participate in the screening: Yes Do you worry about a steady place to live?: No Do you have any problems with any of the following?: No known problems In the past 12 months,have you had to go without utilities?: No Have you or anyone in your house had to go without enough: No Transportation Issues: No Has anyone in your support network made you feel unsafe?: No Does the patient want assistance with any of the above?: No Comment: EMS reports that patient lives in a garage behind her son's home. Indicates home is not well kept. - Physical Exam Vital Signs: Vital Signs - 24 hr Temp Pulse Resp BP BP Pulse Ox 03/16/25 02:42 97.8 F 114 H 28 H 176/101 89 L 03/16/25 02:00 112 H 20 162/103 93 L 03/16/25 01:47 104 H 17 155/106 93 L 03/16/25 01:46 103 H 20 93 L 03/16/25 01:40 105 H 20 155/106 93 L 03/16/25 01:30 95 H 23 94 L 03/16/25 01:20 107 H 23 95 03/16/25 01:10 110 H 21 95 03/16/25 01:00 112 H 23 95 03/16/25 00:50 118 H 29 H 94 L 03/16/25 00:40 117 H 23 91 L 03/16/25 00:30 119 H 25 H 162/90 92 L 03/16/25 00:20 117 H 19 91 L 03/16/25 00:10 117 H 20 91 L 03/16/25 00:06 118 H 28 H 90 L 03/15/25 23:49 92 L 03/15/25 23:31 117 H 22 91 L 03/15/25 23:30 152/97 03/15/25 23:00 117 H 27 H 156/109 94 L 03/15/25 22:33 113 H 18 94 L 03/15/25 22:30 118 H 21 159/123 92 L 03/15/25 22:00 128 H 25 H 153/102 85 L 03/15/25 21:30 120 H 27 H 153/112 91 L 03/15/25 21:08 115 H 18 94 L 03/15/25 21:00 114 H 19 155/99 100 03/15/25 20:30 121 H 28 H 145/94 91 L 03/15/25 20:00 119 H 22 154/103 99 03/15/25 19:44 123 H 21 148/99 92 L 03/15/25 19:00 117 H 20 155/104 94 L 03/15/25 18:43 121 H 26 H 162/132 94 L 03/15/25 18:41 96.7 F 128 H 20 162/131 94 L Physical Exam GEN: Sitting up in bed in no acute distress. HENT: Normocephalic, atraumatic. Moist mucous membranes. EYES: Normal inspection, anicteric sclera, extraocular movements intact. NECK: Supple, full range of motion CV: Regular rate and rhythm, no murmurs, no gallops. No edema. PULM: Clear to auscultation bilaterally, no work of breathing. On 4 L oxygen by nasal cannula. ABD: Nondistended, nontender. MSK: No joint effusions, full range of motion SKIN: No rashes, normal color. NEURO: Face symmetric, no focal motor or sensory deficits except mild hearing impairment. PSYCH: Alert, oriented x 3 Results - Labs Lab/Micro Results: Lab Results-Last 24 Hours 03/15/25 03/15/25 03/15/25 Range/Units 19:40 19:40 19:40 WBC 9.3 (3.98-10.04) x10^3/uL RBC 4.11 (3.93-5.22) x10^6/uL Hgb 10.4 L (11.2-15.7) g/dL Hct 33.7 L (34.1-44.9) % MCV 82.0 (79.4-94.8) fL MCH 25.3 L (25.6-32.2) pg MCHC 30.9 L (32.2-35.5) g/dL RDW 17.8 H (11.7-14.4) % Plt Count 294 (182-369) x10^3/uL MPV 10.4 (9.4-12.3) fL Gran % 72.5 H (34.0-71.1) % Immature Gran % (Auto) 0.4 (0.001-0.429) % Nucleat RBC Rel Count 0.0 (0.00-0.2) % Eos # (Auto) 0.02 L (0.04-0.36) x10^3/uL Immature Gran # (Auto) 0.04 H (0.001-0.031) x10^3u/L Absolute Lymphs (auto) 1.70 (1.18-3.74) x10^3/uL Absolute Monos (auto) 0.78 (0.24-0.86) x10^3/uL Absolute Nucleated RBC 0.00 (0.00-0.012) x10^3u/L Lymphocytes % 18.2 L (19.3-51.7) % Monocytes % 8.4 (4.7-12.5) % Eosinophils % 0.2 L (0.7-5.8) % Basophils % 0.3 (0.1-1.2) % Absolute Granulocytes 6.77 H (1.56-6.13) x10^3/uL Basophils # 0.03 (0.01-0.08) x10^3/uL pO2/FiO2 Ratio % VBG pH (7.32-7.42) VBG pCO2 at Pat Temp (42-55) mm/Hg VBG pO2 at Pat Temp (25-40) mm/Hg VBG HCO3 (22-28) meq/L VBG O2 Sat (Sim) (95-100) VBG Base Excess (-2.0-2.0) VBG Hemoglobin VBG Carboxyhemoglobin (0.0-6.9) % T HGB POC Potassium (3.5-5.1) Sodium 136 (135-145) mmol/L Potassium 4.1 (3.5-5.1) mmol/L Chloride 99 (98-107) mmol/L Carbon Dioxide 28 (22-30) mmol/L Anion Gap 13.2 (5-15) MEQ/L BUN 12 (7-17) mg/dL Creatinine 0.86 (0.52-1.04) mg/dL Estimated GFR 71.7 ML/MIN Glucose 142 H (74-106) mg/dL Calcium 9.5 (8.4-10.2) mg/dL Total Bilirubin 0.90 (0.2-1.3) mg/dL AST 27 (14-36) U/L ALT 13 (0-35) U/L Alkaline Phosphatase 91 (38-126) U/L Troponin I 0.039 H* (0.000-0.033) ng/mL NT-Pro-B Natriuret Pep 07969 (<300) pg/mL Serum Total Protein 7.0 (6.3-8.2) g/dL Albumin 4.0 (3.5-5.0) g/dL 03/15/25 03/16/25 Range/Units 20:30 00:10 WBC (3.98-10.04) x10^3/uL RBC (3.93-5.22) x10^6/uL Hgb (11.2-15.7) g/dL Hct (34.1-44.9) % MCV (79.4-94.8) fL MCH (25.6-32.2) pg MCHC (32.2-35.5) g/dL RDW (11.7-14.4) % Plt Count (182-369) x10^3/uL MPV (9.4-12.3) fL Gran % (34.0-71.1) % Immature Gran % (Auto) (0.001-0.429) % Nucleat RBC Rel Count (0.00-0.2) % Eos # (Auto) (0.04-0.36) x10^3/uL Immature Gran # (Auto) (0.001-0.031) x10^3u/L Absolute Lymphs (auto) (1.18-3.74) x10^3/uL Absolute Monos (auto) (0.24-0.86) x10^3/uL Absolute Nucleated RBC (0.00-0.012) x10^3u/L Lymphocytes % (19.3-51.7) % Monocytes % (4.7-12.5) % Eosinophils % (0.7-5.8) % Basophils % (0.1-1.2) % Absolute Granulocytes (1.56-6.13) x10^3/uL Basophils # (0.01-0.08) x10^3/uL pO2/FiO2 Ratio 21.0 % VBG pH 7.54 H (7.32-7.42) VBG pCO2 at Pat Temp 37 L (42-55) mm/Hg VBG pO2 at Pat Temp 114 H (25-40) mm/Hg VBG HCO3 31.6 H* (22-28) meq/L VBG O2 Sat (Sim) 99.0 (95-100) VBG Base Excess 8.5 H (-2.0-2.0) VBG Hemoglobin 11.2 VBG Carboxyhemoglobin 11.3 H* (0.0-6.9) % T HGB POC Potassium 5.1 (3.5-5.1) Sodium (135-145) mmol/L Potassium (3.5-5.1) mmol/L Chloride (98-107) mmol/L Carbon Dioxide (22-30) mmol/L Anion Gap (5-15) MEQ/L BUN (7-17) mg/dL Creatinine (0.52-1.04) mg/dL Estimated GFR ML/MIN Glucose (74-106) mg/dL Calcium (8.4-10.2) mg/dL Total Bilirubin (0.2-1.3) mg/dL AST (14-36) U/L ALT (0-35) U/L Alkaline Phosphatase (38-126) U/L Troponin I 0.034 H (0.000-0.033) ng/mL NT-Pro-B Natriuret Pep (<300) pg/mL Serum Total Protein (6.3-8.2) g/dL Albumin (3.5-5.0) g/dL - Radiology Impressions Radiology Exams & Impressions: Radiology Procedures Category Date Time Status CHEST 1 VIEW (PORTABLE) Stat Exams 03/15/25 20:09 Taken Chest x-ray diffuse pulmonary edema with cephalization. No infiltrates, no effusions. (Images personally reviewed.) - Other Procedures and Tests Respiratory Therapy 03/16/25 02:17 EKG PRN Oxygen Nasal Cannula 4 lpm Assessment/Plan (1) CHF (congestive heart failure) Current Visit: Yes Status: Acute Assessment & Plan: 70-year-old with a history of HFrEF, CAD, COPD, chronic hypoxic failure, and A- fib, who presents with acute on chronic systolic heart failure. ## Acute on chronic systolic heart failure senting with dyspnea, markedly elevated BNP from 7000 last admission in December when she had a CHF reactivation to 12,000 currently. There is no edema, she does have orthopnea, PND, and early satiety. As well, her dyspnea was not relieved by DuoNebs which is not having any wheezing currently. Of note, during last admission, patient required transfer to [facility] for a [place] catheter directed diuresis. However, at that time, patient was undergoing ANURADHA as well, which made it difficult to diurese her further. Repeat echo at that time showed EF of 15 to 20% with global hypokinesis. Start Lasix 40 mg IV BID Add hydralazine 20 mg q.6 hours for afterload reduction, as her blood pressure has been in the 160s over 100s Resume home GDMT including Entresto, Lopressor 50 BID At discharge, can resume Farxiga, and consider adding spironolactone in place of her amlodipine ## COPD, chronic hypoxic respiratory failure patient is at her baseline 4 L oxygen requirement. Of note, she has no infiltrate on chest x-ray and no wheezing on exam. With her other symptoms typical of CHF as well as her markedly elevated BNP, her hypoxia is more likely explained by CHF and by a COPD exacerbation. Also, patient quit smoking 3 months ago. Resume home albuterol and Trelegy Resume albuterol q.4 hours PRN Continue home prednisone 10 mg daily ## Hypertension blood pressure markedly elevated on arrival. Will also may be difficult to diurese with the high afterload. Adding hydralazine 25 mg q.6 hours as above Resume Entresto and amlodipine 20 mg daily from home medications If blood pressure brunilda elevated, consider increasing amlodipine, versus starting spironolactone to help with GDMT for CHF ## Paroxysmal atrial fibrillation currently in sinus rhythm, not on anticoagulation. Monitor on telemetry ## CAD no chest pain currently. Resume home aspirin 81 mg, metoprolol 50 mg BID, Ranexa 1000 BID, Imdur 30 mg daily, and atorvastatin 40 QHS CODE STATUS: Full code Prophylaxis: Lovenox 40 mg daily Diet: Low-sodium Dispo: Place in observation Entirety of encounter took place via live audio/video telemedicine device, with remote physician and patient in hospital, with the assistance of bedside nurse. Code(s): I50.9 - HEART FAILURE, UNSPECIFIED Telemedicine Encounter - Telemedicine Encounter Telemedicine Encounter: "The entirety of this encounter was performed via Telemedicine" This visit was performed using real-time audio and video connection between my location and thepatients locationwith the assistance of a surrogateat the patients location. Written or verbal consent was obtained from the patient/guardian to perform this visit usingsynchrVanu Coveragetelemedicine technology. Any patient questions regarding the telemedicine interaction were answered.
[2025-03-16] MEDS: Apresoline 25 MG TABLET PO SCH (03:43)
[2025-03-16 05:23] LABS: Hematocrit 34.5 % (34.1-44.9); Hemoglobin 10.4 g/dL (11.2-15.7); Mean Cell Volume 82.9 fL (79.4-94.8); Mean Corpuscular Hgb Concent. 30.1 g/dL (32.2-35.5); Mean Platelet Volume 10.3 fL (9.4-12.3); Platelet Count 283 x10^3/uL (182-369); Red Blood Count 4.16 x10^6/uL (3.93-5.22); White Blood Count 5.3 x10^3/uL (3.98-10.04)
[2025-03-16 05:46] LABS: ANION GAP 12.9 MEQ/L (5-15); Calcium 9.3 mg/dL (8.4-10.2); Creatinine 1 1.01 mg/dL (0.52-1.04); EST GLOMERULAR FILTRATION RATE 59.2 ML/MIN; Potassium 3.7 mmol/L (3.5-5.1)
[2025-03-16] MEDS: DUONEB 0.5-3 MG/3 ml Neb IH SCH ×2 (07:38→10:47)
[2025-03-16] MEDS: HUMALOG SQ PRN (07:53)
[2025-03-16 07:55] VITALS: TEMP 98
--- NOTE | 2025-03-16 08:49 | XRAY ---
Indication: Dyspnea. Comparison: January 04, 2025 Portable chest again demonstrates cardiomegaly, pulmonary edema, and slight worsening mild bibasilar atelectasis/effusions favoring worsening cardiac decompensation/CHF. Superimposed pneumonia not completely excluded. Bony thorax intact again with osteopenia, degenerative changes, and left pacemaker.
[2025-03-16] MEDS: Lopressor 50 MG PO SCH (09:52)
[2025-03-16] MEDS: Ranexa 500 MG PO SCH (09:52)
[2025-03-16] MEDS: Imdur 30 MG PO SCH (09:52)
[2025-03-16] MEDS: NORVASC 5 MG PO SCH (09:53)
[2025-03-16] MEDS: ENTRESTO 49 MG-51 MG TABLET PO SCH (09:53)
[2025-03-16] MEDS: ENOXAPARIN SODIUM SQ SCH (09:53)
[2025-03-16] MEDS: DELTASONE 10 MG PO SCH (09:53)
[2025-03-16] MEDS: Pepcid 20 MG PO SCH (09:53)
[2025-03-16] MEDS: ECOTRIN 81 MG PO SCH (09:53)
[2025-03-16] MEDS ORDERED: NON-FORMULARY ITEM (Amlodipine Besylate [Norvasc] 2.5 MG Tablet) PO SCH (10:00)
[2025-03-16] MEDS ORDERED: Furosemide 100mg/10 ml Vial IV SCH (10:00)
[2025-03-16] MEDS ORDERED: NON-FORMULARY ITEM (Sacubitril/Valsartan [Entresto 97 Mg-103 Mg Tablet] 1 EACH Tablet) PO SCH (10:00)
[2025-03-16] MEDS ORDERED: Lopressor 50 MG PO SCH (10:00)
[2025-03-16] MEDS ORDERED: Lasix 40 MG/4 ML IV SCH (10:00)
[2025-03-16] MEDS ORDERED: BABY ASPIRIN 81 MG CHEW PO SCH (10:00)
[2025-03-16] MEDS: Lasix 40 MG/4 ML IV SCH (10:05)
--- NOTE | 2025-03-16 10:38 | PCM.DS ---
Discharge Summary Date of Admission: 03/16/25 02:07 Date of Discharge: 03/16/25 Admitting Physician: LUCIAN ROCHA MD Primary Care Provider: GIO ORTIZ DO Allergies Allergies No Known Drug Allergies Allergy (Verified 03/15/25 19:00) Hospital Summary - Hospital Course Hospital Course: Ms. Pedraza is a 70-year-old female with a significant cardiac and pulmonary history, including heart failure with reduced ejection fraction (EF 15-20%), coronary artery disease, chronic obstructive pulmonary disease on home oxygen, chronic hypoxic respiratory failure, and paroxysmal atrial fibrillation. The patient presented with several days of progressive dyspnea that was not relieved by her home inhalers or prednisone. She denied cough, fever, or chest pain. Although she did not report lower extremity edema, she endorsed orthopnea, paroxysmal nocturnal dyspnea, and early satiety, consistent with volume overload. 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 Workup revealed marked hypertension on arrival, chest X-ray showing cardiomegaly, pulmonary edema, and bilateral pleural effusions, and a significantly elevated BNP of 12,000 (up from 7,000 during her prior admission for CHF exacerbation in December). She was managed with aggressive intravenous diuresis using Lasix 80 mg IV twice daily with subsequent symptomatic improvement and return to her home oxygen requirement of 4 L/min. There was no evidence of active COPD exacerbation, pneumonia, or new arrhythmia. Her blood pressure remained elevated during hospitalization, prompting the addition of hydralazine for afterload reduction. GDMT was optimized during admission, and her home medications, including Entresto and metoprolol, were resumed. Given her history of poor tolerance to volume overload, close outpatient follow-up and home monitoring are crucial. Amlodipine was increase to 5mg daily on discharge. The patient was educated on CHF self-management, including monitoring daily weights, adherence to a low- sodium diet, and recognition of early warning signs of volume overload. She will follow up with her movie stunt performer within 1 week of discharge. I spent 35 minutes [id number] with the patient on the day of discharge performing discharge exam, discussing hospital stay and discharge instructions with patient and caregivers, preparation of discharge records, prescriptions & referral forms and addressing any questions/concerns the patient had as documented above. - Vitals & Intake/Output Vital Signs: Vital Signs Temperature 98.0 F 03/16/25 07:54 Pulse Rate 106 H 03/16/25 07:54 Respiratory Rate 16 03/16/25 07:54 Blood Pressure 151/90 03/16/25 07:54 O2 Sat by Pulse Oximetry 93 L 03/16/25 07:54 Intake & Output: Intake & Output 03/13/25 03/14/25 03/15/25 03/16/25 11:59 11:59 11:59 11:59 Intake Total 880 Balance 880 Weight 86.2 kg - Lab Result Diagrams: 03/16/25 05:18 03/16/25 05:18 Lab Results-Last 24 Hrs: Lab Results-Last 24 Hours 03/15/25 03/15/25 03/15/25 Range/Units 19:40 19:40 19:40 WBC 9.3 (3.98-10.04) x10^3/uL RBC 4.11 (3.93-5.22) x10^6/uL Hgb 10.4 L (11.2-15.7) g/dL Hct 33.7 L (34.1-44.9) % MCV 82.0 (79.4-94.8) fL MCH 25.3 L (25.6-32.2) pg MCHC 30.9 L (32.2-35.5) g/dL RDW 17.8 H (11.7-14.4) % Plt Count 294 (182-369) x10^3/uL MPV 10.4 (9.4-12.3) fL Gran % 72.5 H (34.0-71.1) % Immature Gran % (Auto) 0.4 (0.001-0.429) % Nucleat RBC Rel Count 0.0 (0.00-0.2) % Eos # (Auto) 0.02 L (0.04-0.36) x10^3/uL Immature Gran # (Auto) 0.04 H (0.001-0.031) x10^3u/L Absolute Lymphs (auto) 1.70 (1.18-3.74) x10^3/uL Absolute Monos (auto) 0.78 (0.24-0.86) x10^3/uL Absolute Nucleated RBC 0.00 (0.00-0.012) x10^3u/L Lymphocytes % 18.2 L (19.3-51.7) % Monocytes % 8.4 (4.7-12.5) % Eosinophils % 0.2 L (0.7-5.8) % Basophils % 0.3 (0.1-1.2) % Absolute Granulocytes 6.77 H (1.56-6.13) x10^3/uL Basophils # 0.03 (0.01-0.08) x10^3/uL pO2/FiO2 Ratio % VBG pH (7.32-7.42) VBG pCO2 at Pat Temp (42-55) mm/Hg VBG pO2 at Pat Temp (25-40) mm/Hg VBG HCO3 (22-28) meq/L VBG O2 Sat (Sim) (95-100) VBG Base Excess (-2.0-2.0) VBG Hemoglobin VBG Carboxyhemoglobin (0.0-6.9) % T HGB POC Potassium (3.5-5.1) Sodium 136 (135-145) mmol/L Potassium 4.1 (3.5-5.1) mmol/L Chloride 99 (98-107) mmol/L Carbon Dioxide 28 (22-30) mmol/L Anion Gap 13.2 (5-15) MEQ/L BUN 12 (7-17) mg/dL Creatinine 0.86 (0.52-1.04) mg/dL Estimated GFR 71.7 ML/MIN Glucose 142 H (74-106) mg/dL POC Glucometer (74 to 106) mg/dL Calcium 9.5 (8.4-10.2) mg/dL Magnesium (1.6-2.3) mg/dL Total Bilirubin 0.90 (0.2-1.3) mg/dL AST 27 (14-36) U/L ALT 13 (0-35) U/L Alkaline Phosphatase 91 (38-126) U/L Troponin I 0.039 H* (0.000-0.033) ng/mL NT-Pro-B Natriuret Pep 05531 (<300) pg/mL Serum Total Protein 7.0 (6.3-8.2) g/dL Albumin 4.0 (3.5-5.0) g/dL 05/10/2803/16/25 03/16/25 Range/Units 20:30 00:10 05:18 WBC (3.98-10.04) x10^3/uL RBC (3.93-5.22) x10^6/uL Hgb (11.2-15.7) g/dL Hct (34.1-44.9) % MCV (79.4-94.8) fL MCH (25.6-32.2) pg MCHC (32.2-35.5) g/dL RDW (11.7-14.4) % Plt Count (182-369) x10^3/uL MPV (9.4-12.3) fL Gran % (34.0-71.1) % Immature Gran % (Auto) (0.001-0.429) % Nucleat RBC Rel Count (0.00-0.2) % Eos # (Auto) (0.04-0.36) x10^3/uL Immature Gran # (Auto) (0.001-0.031) x10^3u/L Absolute Lymphs (auto) (1.18-3.74) x10^3/uL Absolute Monos (auto) (0.24-0.86) x10^3/uL Absolute Nucleated RBC (0.00-0.012) x10^3u/L Lymphocytes % (19.3-51.7) % Monocytes % (4.7-12.5) % Eosinophils % (0.7-5.8) % Basophils % (0.1-1.2) % Absolute Granulocytes (1.56-6.13) x10^3/uL Basophils # (0.01-0.08) x10^3/uL pO2/FiO2 Ratio 21.0 % VBG pH 7.54 H (7.32-7.42) VBG pCO2 at Pat Temp 37 L (42-55) mm/Hg VBG pO2 at Pat Temp 114 H (25-40) mm/Hg VBG HCO3 31.6 H* (22-28) meq/L VBG O2 Sat (Sim) 99.0 (95-100) VBG Base Excess 8.5 H (-2.0-2.0) VBG Hemoglobin 11.2 VBG Carboxyhemoglobin 11.3 H* (0.0-6.9) % T HGB POC Potassium 5.1 (3.5-5.1) Sodium (135-145) mmol/L Potassium (3.5-5.1) mmol/L Chloride (98-107) mmol/L Carbon Dioxide (22-30) mmol/L Anion Gap (5-15) MEQ/L BUN (7-17) mg/dL Creatinine (0.52-1.04) mg/dL Estimated GFR ML/MIN Glucose (74-106) mg/dL POC Glucometer (74 to 106) mg/dL Calcium (8.4-10.2) mg/dL Magnesium (1.6-2.3) mg/dL Total Bilirubin (0.2-1.3) mg/dL AST (14-36) U/L ALT (0-35) U/L Alkaline Phosphatase (38-126) U/L Troponin I 0.034 H 0.029 (0.000-0.033) ng/mL NT-Pro-B Natriuret Pep (<300) pg/mL Serum Total Protein (6.3-8.2) g/dL Albumin (3.5-5.0) g/dL 03/16/25 03/16/25 03/16/25 Range/Units 05:18 05:18 07:34 WBC 5.3 (3.98-10.04) x10^3/uL RBC 4.16 (3.93-5.22) x10^6/uL Hgb 10.4 L (11.2-15.7) g/dL Hct 34.5 (34.1-44.9) % MCV 82.9 (79.4-94.8) fL MCH 25.0 L (25.6-32.2) pg MCHC 30.1 L (32.2-35.5) g/dL RDW 18.0 H (11.7-14.4) % Plt Count 283 (182-369) x10^3/uL MPV 10.3 (9.4-12.3) fL Gran % (34.0-71.1) % Immature Gran % (Auto) (0.001-0.429) % Nucleat RBC Rel Count (0.00-0.2) % Eos # (Auto) (0.04-0.36) x10^3/uL Immature Gran # (Auto) (0.001-0.031) x10^3u/L Absolute Lymphs (auto) (1.18-3.74) x10^3/uL Absolute Monos (auto) (0.24-0.86) x10^3/uL Absolute Nucleated RBC (0.00-0.012) x10^3u/L Lymphocytes % (19.3-51.7) % Monocytes % (4.7-12.5) % Eosinophils % (0.7-5.8) % Basophils % (0.1-1.2) % Absolute Granulocytes (1.56-6.13) x10^3/uL Basophils # (0.01-0.08) x10^3/uL pO2/FiO2 Ratio % VBG pH (7.32-7.42) VBG pCO2 at Pat Temp (42-55) mm/Hg VBG pO2 at Pat Temp (25-40) mm/Hg VBG HCO3 (22-28) meq/L VBG O2 Sat (Sim) (95-100) VBG Base Excess (-2.0-2.0) VBG Hemoglobin VBG Carboxyhemoglobin (0.0-6.9) % T HGB POC Potassium (3.5-5.1) Sodium 140 (135-145) mmol/L Potassium 3.7 (3.5-5.1) mmol/L Chloride 97 L (98-107) mmol/L Carbon Dioxide 34 H (22-30) mmol/L Anion Gap 12.9 (5-15) MEQ/L BUN 13 (7-17) mg/dL Creatinine 1.01 (0.52-1.04) mg/dL Estimated GFR 59.2 ML/MIN Glucose 207 H (74-106) mg/dL POC Glucometer 181 H (74 to 106) mg/dL Calcium 9.3 (8.4-10.2) mg/dL Magnesium 2.0 (1.6-2.3) mg/dL Total Bilirubin (0.2-1.3) mg/dL AST (14-36) U/L ALT (0-35) U/L Alkaline Phosphatase (38-126) U/L Troponin I (0.000-0.033) ng/mL NT-Pro-B Natriuret Pep (<300) pg/mL Serum Total Protein (6.3-8.2) g/dL Albumin (3.5-5.0) g/dL Micro Results-Entire Visit: Accuchecks Date 03/16/25 Time 07:53 - Radiology Exams Ordered Rad Exams-Entire Visit: Radiology Procedures Category Date Time Status CHEST 1 VIEW (PORTABLE) Stat Exams 03/15/25 20:09 Completed - Procedures and Test Procedures and Tests throughout Hospitalization: Therapy Orders & Screens 03/15/25 19:55 Respiratory Therapy Assessment DAILY Comment: 03/16/25 02:17 EKG PRN Comment: Oxygen Nasal Cannula 4 lpm Comment: 03/17/25 07:00 Respiratory Therapy Assessment DAILY Comment: Diagnosis: shortness of breath Discharge Exam General Appearance: no apparent distress Neurologic Exam: alert, oriented x 3, cooperative Eye Exam: PERRL Ears, Nose, Throat Exam: normal ENT inspection Neck Exam: normal inspection Respiratory Exam: crackles/rales Cardiovascular Exam: regular rate/rhythm, normal heart sounds Gastrointestinal/Abdomen Exam: soft, normal bowel sounds Pelvic Exam: deferred Rectal Exam: deferred Back Exam: normal inspection Extremity Exam: normal inspection Skin Exam: normal color Final Diagnosis/Problem List - Final Discharge Diagnosis/Problem (1) CHF exacerbation Current Visit: No Status: Acute Assessment & Plan: -Decompensated CHF presenting with volume overload symptoms, markedly elevated BNP, and pulmonary edema. -Responded well to inpatient IV diuresis (Lasix 40 mg IV BID). -Discharged on Lasix 40 mg daily orally with close outpatient monitoring. -Amlodipine increased to 5mg daily -Resume home Entresto and metoprolol 75mg bid per her movie stunt performer. -Resume Farxiga Strong consideration to add spironolactone during outpatient follow-up to improve GDMT and optimize volume control. Code(s): I50.9 - HEART FAILURE, UNSPECIFIED (2) CAD (coronary artery disease) Current Visit: Yes Status: Acute Assessment & Plan: No ischemic symptoms during this admission. Resume home medications including aspirin 81 mg daily, ranolazine 1000 mg BID, Imdur 30 mg daily, and atorvastatin 40 mg at bedtime. Code(s): I25.10 - ATHSCL HEART DISEASE OF [place] CORONARY ARTERY W/O ANG PCTRS (3) COPD exacerbation Current Visit: No Status: Acute Assessment & Plan: No acute exacerbation during admission. Resume home oxygen at 4 L/min. Continue home Trelegy daily, albuterol inhaler PRN every 4 hours, and prednisone 10 mg daily. Emphasized smoking cessation; patient quit 3 months ago. Code(s): J44.1 - CHRONIC OBSTRUCTIVE PULMONARY DISEASE W (ACUTE) EXACERBATION (4) HTN (hypertension) Current Visit: No Status: Acute Assessment & Plan: -Markedly elevated during admission, likely contributing to CHF exacerbation. -Hydralazine 20 mg every 6 hours initiated inpatient. -Resume home amlodipine 5 mg daily and Entresto. -Will reassess blood pressure management at outpatient cardiology follow-up. Code(s): I10 - ESSENTIAL (PRIMARY) HYPERTENSION (5) Afib Current Visit: No Status: Chronic Assessment & Plan: -Remained in sinus rhythm throughout hospitalization. -Continue monitoring on outpatient basis. -Currently not on anticoagulation; decision deferred to cardiology at follow-up. Code(s): I48.91 - UNSPECIFIED ATRIAL FIBRILLATION - Discharge Discharge Date: 03/16/25 Disposition: Home, Self-Care Condition: Stable Prescriptions: New Amlodipine Besylate 5 mg [Norvasc 5 mg] 5 mg PO DAILY 30 Days #30 tablet Continue Albuterol 8 gm Mdi Hfa [Ventolin Hfa MDI] 2 puffs IH Q4H PRN PRN PRN Reason: Shortness Of Breath Tramadol HCl 50 mg [Ultram 50 mg] 50 mg PO Q6HPRN PRN PRN Reason: Moderate To Severe Pain Ranolazine 500 MG [Ranexa 500 MG] 1,000 mg PO BID Aspirin 81 gm Chew [Baby Aspirin 81 mg Chew] 81 mg PO DAILY #0 Fluticasone/Umeclidin/Vilanter [Trelegy Ellipta 200-62.5-25] 1 each IH DAILY Famotidine 20 mg PO BID Albuterol/Ipratropium 3ml Neb* [DUONEB 0.5-3 MG/3 ml Neb] 3 ml IH QID Isosorbide Mononitrate 30 mg [Imdur 30 MG] 30 mg PO DAILY Prednisone 10 mg [Deltasone 10 mg] 10 mg PO DAILY Sacubitril/Valsartan [Entresto 97 mg-103 mg Tablet] 1 tab PO BID Dapagliflozin Propanediol [Farxiga] 10 mg PO DAILY Atorvastatin Calcium 40 mg PO HS Changed Furosemide 20 mg [Lasix 20 mg] 40 mg PO DAILY #0 Metoprolol Tartrate 50 mg [Lopressor 50 MG] 75 mg PO BID #0 Discontinued Amlodipine Besylate [Norvasc] 2.5 mg PO DAILY Follow up with: GIO ORTIZ DO [Primary Care Provider, [facility]] VICKY CHAPMAN [CONSULTING PHYSICIAN, CARDIOLOGY] Referral Note: This week
[2025-03-16 10:48] VITALS: PULSE 101; O2SAT 95
[2025-03-16 11:31] VITALS: BP 137/88; RESP 16
[2025-03-16] MEDS ORDERED: Apresoline 25 MG TABLET PO SCH (12:00)
[2025-03-16] MEDS ORDERED: Lantus Insulin SQ SCH (22:00)
[2025-03-16] MEDS ORDERED: LIPITOR 40MG PO SCH (22:00)
[2025-03-16] MEDS ORDERED: ZOCOR 20MG PO SCH (22:00)
== END 2025-03-16 11:55 | disposition home or self-care (01) ==
LOC: ED 18:40 → MED SURG 03-16 02:07
PROVIDERS: ADMIT Internal Medicine; ATTEND Internal Medicine
DX: I11.0 Hypertensive heart disease with heart failure (principal); Z59.82 Transportation insecurity; I50.9 Heart failure, unspecified; J44.1 Chronic obstructive pulmonary disease with (acute) exacerbation; Z99.81 Dependence on supplemental oxygen; I48.91 Unspecified atrial fibrillation; I25.10 Atherosclerotic heart disease of native coronary artery without angina pectoris; E78.5 Hyperlipidemia, unspecified; Z79.899 Other long term (current) drug therapy
CPT/HCPCS: 36415; 71045; 80048; 80053; 82805; 82947; 83735; 83880; 84484; 85025; 85027; 93005; 93268; 94640; 94760; 96374; 96376; 99285; J1650; J1817; J1938; J2919; J7609; Q3014; A9270-GY; G0378